=== PATIENT | female | born 1985 | race Caucasian/White ===

== ENCOUNTER 2023-09-17 08:19 | Outpatient (OUT) | payer BC, SELFPAY ==
[2023-09-17 09:04] LABS: Chol HDL Ratio 2.5; Cholesterol 127 mg/dL (<=200); Glucose 82 mg/dL (74-106); HDL Cholesterol 50 mg/dL (40-60); LDL Cholesterol Calculated 67.6 mg/dL; Triglycerides 47 mg/dL (<=150); VLDL CHOLESTEROL 9.4 mg/dL
[2023-09-17 09:30] LABS: Estimated Average Glucose 117 mg/dL; Glycohemoglobin A1C 5.7 % (4.5-6.2)
== END 2023-09-17 08:20 | disposition home or self-care (01) ==
LOC: LAB 08:25
PROVIDERS: PCP Internal Medicine; Visit Provider Internal Medicine
DX: Z00.00 Encounter for general adult medical examination without abnormal findings (principal)
CPT/HCPCS: 36415; 80061; 82947; 83036

== ENCOUNTER 2023-12-17 07:42 | Observation (INO) | payer BC, SELFPAY ==
[2023-12-17] VITALS (17 sets, daily range): BP systolic 110–140; BP diastolic 65–93; PULSE 54–108; TEMP 36.6–36.8; O2SAT 95–100; BMI 30.2; BMI 29.8
--- NOTE | 2023-12-17 07:51 | CT_ITS ---
The [address] [address] Patient Name: SOLANGE MURPHY MRN: [id number] date: 1985 Sex: F Assigned Patient Location: ER Current Patient Location: ER Accession/Order Number: [id number] Exam Date: 12/17/2023 07:59 Report Date: 12/17/2023 08:16 At the request of: SOFIA FAY Procedure: CT stroke head/brain wo con EXAMINATION: CT stroke head/brain wo con HISTORY: CVA, ARM WEAK SLURRED SPEECH COMPARISON: No relevant comparison available. TECHNIQUE: Axial CT images were obtained without IV contrast. Dose reduction techniques were achieved by using automated exposure control and/or adjustment of mA and/or kV according to patient size and/or use of iterative reconstruction technique. FINDINGS: BRAIN: No edema, hemorrhage, mass, acute infarction, or inappropriate atrophy. CSF SPACES: No hydrocephalus, subarachnoid hemorrhage, or mass. Appropriate for age. SKULL: No fracture, mass, or other significant visible lesion. SINUSES: No significant mucosal thickening or fluid on the limited views. ORBITS: No appreciable abnormality on the limited views. OTHER: Findings discussed with emergency room at 8:[address]/CT stroke head/brain wo con IMPRESSION: No acute intracranial abnormality Electronically authenticated by: IRINA SAGE Date: 12/17/2023 08:16
--- NOTE | 2023-12-17 07:51 | XR_ITS ---
The [address] [address] Patient Name: SOLANGE MURPHY MRN: [id number] date: 1985 Sex: F Assigned Patient Location: ER Current Patient Location: ER Accession/Order Number: [id number] Exam Date: 12/17/2023 07:59 Report Date: 12/17/2023 08:11 At the request of: SOFIA FAY Procedure: XR chest 1V EXAMINATION: XR chest 1V HISTORY: CVA COMPARISON: No relevant comparison available. TECHNIQUE: Portable FINDINGS: LUNGS: No significant pulmonary parenchymal abnormalities. VASCULATURE: No increased pulmonary vasculature. PLEURA: No pneumothorax, effusion, or pleural thickening. CARDIAC: No cardiomegaly or cardiac silhouette abnormality. MEDIASTINUM: No visible mass or adenopathy. BONES: No fracture or visible bone lesion. OTHER: Negative. XR/XR chest 1V IMPRESSION: No acute cardiopulmonary process Electronically authenticated by: IRINA SAGE Date: 12/17/2023 08:11
--- NOTE | 2023-12-17 07:51 | ECG_ITS ---
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
--- NOTE | 2023-12-17 07:52 | PC.NURSE ---
blood sugar 95
[2023-12-17 07:53] LABS: Glucometer 95 mg/dL (74-106)
--- OUTSIDE RECORDS SUMMARY | 2023-12-17 07:55 | XMS_ITS | CCD ---
Author Organization [facility] Care Team Providers Care Scale Balancer Name Role Phone Bentley Amin Unavailable Unavailable Bentley Aimn Unavailable Unavailable Ball, Edward Unavailable Unavailable Ball Edward KULKARNI Primary Care Provider FLORO, DIANNE Admitting Unavailable FLORO, DIANNE Attending Unavailable BALL, EDWARD E Primary Care Unavailable FLORO, DIANNE Admitting Unavailable FLORO, DIANNE Attending Unavailable BALL, EDWARD E Primary Care Unavailable FLORO, DIANNE Admitting Unavailable FLORO, DIANNE Attending Unavailable BALL, EDWARD E Primary Care Unavailable BRYANNA BARTH Admitting Unavailable BALL, EDWARD E Primary Care Unavailable FLORO, DIANNE Attending Unavailable SILVER DECKER Consulting Unavailable FLORO, DIANNE Admitting Unavailable FLORO, DIANNE Attending Unavailable BALL, EDWARD E Primary Care Unavailable FLORO, DIANNE Admitting Unavailable FLORO, DIANNE Attending Unavailable BALL, EDWARD E Primary Care Unavailable FLORO, DIANNE Admitting Unavailable FLORO, DIANNE Attending Unavailable BALL, EDWARD E Primary Care Unavailable Margie Fish Unavailable BERTO ZIMMERMAN Admitting Unavailable BERTO ZIMMERMAN Attending Unavailable BALL, DR BALLARD Primary Care Unavailable BERTO ZIMMERMAN Consulting Unavailable BALL, DR BALLARD Admitting Unavailable BALL, DR BALLARD Attending Unavailable BALL, DR BALLARD Primary Care Unavailable BALL, DR BALLARD Consulting Unavailable Camilo, Edward Unavailable Allergies Allergy Classification Reported Allergen(s) Allergy Type Date of Onset Reaction(s) Facility (6 sources) Penicillins Propensity to adverse reactions to drug 04-19-[address] [facility] [employer] [facility] (8 sources) Penicillin G Drug Allergy [facility] [employer] Other (3 sources) Penicillin Drug Allergy 03-16-20 14 Unknown [employer] Other (4 sources) Substance with penicillin structure and antibacterial mechanism of action (substance) Drug allergy 01-14-20 18 Unknown [employer] Other (3 sources) patient allergy list reviewed by nurse or physicia Propensity to adverse reactions 02-27-20 17 Comment:Done [employer] Other (3 sources) Allergies Reconciled Propensity to adverse reactions Unknown [employer] Other Medications Current Medications Medication Drug Class(es) Dates Sig (Normalized) Sig (Original) acetaminophen 325 mg oral tablet (1 source) Start: 10-12-2021 acetaminophen (TYLENOL) tablet 650 mg acetaminophen 325 mg / oxyCODONE hydrochloride 5 mg oral tablet (2 sources) Opioid Agonist Start: 10-14-2021 End: 10-17-2021 take 1 tablet by mouth every eight hours as needed for pain oxyCODONE-acetamino phen (PERCOCET) 5-325 MG per tablet Indications: Born by section Take 1 tablet by mouth every 8 hours as needed for Pain for up to 3 days. 10 tablet 0 10/14/2021 10/17/2021 Active Start: 10-12-2021 oxyCODONE-acet aminophen (PERCOCET) 5-325 MG per tablet 1 tablet aspirin 81 mg chewable tablet (6 sources) Platelet Aggregation Inhibitor, Nonsteroidal Anti-inflammatory Drug Start: 06-15-2021 End: 10-14-2021 ASPIRIN LOW DOSE 81 MG chewable tablet azithromycin 250 mg oral tablet (3 sources) Macrolide Antimicrobial Start: 08-29-2022 Azithromycin 250 MG as directed Orally daily for 5 days Aug, Active buPROPion hydrochloride 100 mg oral tablet (10 sources) Aminoketone Start: 04-09-2023 take 1 tablet by mouth every twelve hours buPROPion HCl 100 MG 1 tablet Orally Twice a day Instruct patient to take bid for first 3 days Apr, Active take 1 tablet by cara th every twenty-four hours buPROPion HCl ER (SR) 150 MG 1 tablet in the morning Orally Once a day Active calcium chloride 0.0014 meq/ml / potassium chloride 0.004 meq/ml / sodium chloride 0.103 meq/ml / sodium lactate 0.028 meq/ml injectable solution (2 sources) Start: 10-12-2021 End: 10-12-2021 lactated ringers infusion 1 ml carboprost 0.25 mg/ml injection (1 source) Prostaglandin Analog Start: 10-12-2021 carboprost (HEMABATE) injection 250 mcg cholecalciferol 0.025 mg oral tablet (6 sources) Vitamin D Start: 06-15-2021 Cholecalciferol (VITAMIN D3) 25 MCG TABS 1 ml diphenhydrAMINE hydrochloride 50 mg/ml cartridge (1 source) Histamine-1 Receptor Antagonist Start: 10-12-2021 diphenhydrAMINE (BENADRYL) injection 25 mg docusate sodium 100 mg oral capsule (2 sources) Start: 10-14-2021 take 1 capsule by mouth twice daily docusate sodium (COLACE) 100 MG capsule Take 1 capsule by mouth 2 times daily 60 capsule 2 10/14/2021 Active Start: 10-12-2021 docusate sodiu m (COLACE) capsule 100 mg docusate sodium 50 mg / sennosides, skilled nursing 8.6 mg oral tablet (1 source) Start: 10-12-2021 sennosides-docusate sodium (SENOKOT-S) 8.6-50 MG tablet 1 tablet 0.6 ml enoxaparin sodium 100 mg/ml prefilled syringe (1 source) Low Molecular Weight Heparin Start: 10-13-2021 enoxaparin (LOVENOX) injection 60 mg escitalopram 20 mg oral tablet (12 sources) Serotonin Reuptake Inhibitor take 1 tablet by mouth every twenty-fou r hours Escitalopram Oxalate 20 MG 1 tablet Orally Once a day Active glucagon (rdna) 1 mg injection (1 source) Antihypoglycemic Agent Start: 10-12-2021 glucagon (rDNA) injection 1 mg 150 ml glucose 50 mg/ml injection (3 sources) Start: 10-12-2021 dextrose 5 % solution Start: 10-12-2021 glucose (GLUTO SE) 40 % oral gel 15 g Start: 10-12-2021 dextrose 50 % IV solution hydrOXYzine hydrochloride 25 mg oral tablet (4 sources) Antihistamine Start: 04-09-2023 take 1-2 tablets by mouth once at bedtime as needed for sleep hydrOXYzine HCl 25 MG 1-2 tablets Orally q HS as needed for sleep 03 Oct, 2023 Active ibuprofen 800 mg oral tablet (2 sources) Nonsteroidal Anti-inflammatory Drug Start: 10-14-2021 take 1 tablet by mouth every eight hours ibuprofen (ADVIL;MOTRIN) 800 MG tablet Take 1 tablet by mouth every 8 hours 120 tablet 3 10/14/2021 Active Start: 10-13-2021 ibuprofen (ADV IL;MOTRIN) tablet 800 mg 3 ml insulin glargine 100 unt/ml pen injector (2 sources) Insulin Analog End: 10-14-2021 insulin glargine (LANTUS SOLOSTAR) 100 UNIT/ML injection pen Inject 12 Units into the skin every morning (before breakfast) 0 10/14/2021 Discontinued (Stop Taking at Discharge) End: 10-14-2021 Insulin Glargine (LANTUS AILYN OSTAR SC) Inject 22 Units into the skin nightly 0 10/14/2021 Discontinued (Stop Taking at Discharge) insulin lispro 100 unt/ml injectable solution (3 sources) Insulin Analog Start: 10-12-2021 insulin lispro (HUMALOG) injection vial 0-3 Units End: 10-14-2021 insulin lispro (HUMALOG) 100 UNIT/ML injection vial Inject 5 Units into the skin Daily with supper 0 10/14/2021 Discontinued (Stop Taking at Discharge) labetalol hydrochloride 100 mg oral tablet (1 source) beta-Adrenergic Danial Start: 10-12-2021 End: 10-15-2021 labetalol (NORMODYNE) tablet 200 mg lanolin 1000 mg/ml topical cream (2 sources) Start: 10-14-2021 lansinoh lanol in CREA ointment Apply 1 applicator topically every hour as needed for Dry Skin (nipple discomfort) 1 each 3 10/14/2021 Active Start: 10-12-2021 lansinoh lanol in ointment levonorgestrel 0.915468 mg/hr intrauterine system (7 sources) Progestin, Progestin-containing Intrauterine Device 1 ml methylergonovine maleate 0.2 mg/ml injection (1 source) Ergot Derivative Start: 10-13-19 methylergonovine (METHERGINE) injection 200 mcg metroNIDAZOLE 250 mg oral tablet (1 source) Nitroimidazole Antimicrobial Start: 10-13-19 End: 10-15-19 metroNIDAZOLE (FLAGYL) tablet 500 mg miSOPROStol 0.1 mg oral tablet (1 source) Prostaglandin E1 Analog Start: 10-13-19 miSOPROStol (CYTOTEC) tablet 800 mcg 1 ml nalbuphine hydrochloride 10 mg/ml injection (1 source) Opioid Agonist/Antagonist Start: 10-13-19 nalbuphine (NUBAIN) injection 10 mg 1 ml naloxone hydrochloride 0.4 mg/ml injection (1 source) Opioid Antagonist Start: 10-13-19 naloxone (NARCAN) injection 0.4 mg 2 ml ondansetron 2 mg/ml injection (1 source) Serotonin-3 Receptor Antagonist Start: 10-13-19 ondansetron (ZOFRAN) injection 4 mg oxytocin (PITOCIN) 30 units in 500 mL infusion (1 source) Start: 10-13-19 End: 10-15-19 oxytocin (PITOCIN) 30 units in 500 mL infusion Vit-Fe Fumarate-FA ( VITAMINS PO) (6 sources) Vit-Fe Fumarate-FA ( VITAMINS PO) Take by mouth 0 Active vitamin 27-1 MG tablet 1 tablet (1 source) Start: 10-13-19 vitamin 27-1 MG tablet 1 tablet simethicone 80 mg chewable tablet (1 source) Start: 10-13-19 simethicone (MYLICON) chewable tablet 80 mg 5 ml sodium chloride 9 mg/ml injection (4 sources) Start: 10-13-19 sodium chloride flush 0.9 % injection 10 mL Start: 10-12-2021 0.9 % sodium c hloride infusion Completed/Discontinued Medications Medication Drug Class(es) Dates Sig (Normalized) Sig (Original) citric acid 66.8 mg/ml / sodium citrate 100 mg/ml oral solution (1 source) Calculi Dissolution Agent, Anti-coagulant Start: 10-12-2021 End: 10-12-2021 citric acid-sodium citrate (BICITRA) solution 30 mL Start: 10-12-2021 End: 10-12-2021 citric acid-sodium citrate ( BICITRA) solution 30 mL 50 ml clindamycin 18 mg/ml injection (1 source) Lincosamide Antibacterial Start: 10-12-2021 End: 10-12-2021 clindamycin (CLEOCIN) 900 mg in dextrose 5 % 50 mL IVPB famotidine (PEPCID) 20 mg in sodium chloride (PF) 10 mL injection (1 source) Start: 10-12-2021 End: 10-12-2021 famotidine (PEPCID) 20 mg in sodium chloride (PF) 10 mL injection 1 ml ketorolac tromethamine 30 mg/ml cartridge (1 source) Nonsteroidal Anti-inflammatory Drug, Cyclooxygenase Inhibitor Start: 10-12-2021 End: 10-13-2021 ketorolac (TORADOL) injection 30 mg 500 ml magnesium sulfate 40 mg/ml injection (3 sources) Start: 10-12-2021 End: 10-12-2021 magnesium sulfate 4000 mg in 100 mL IVPB premix Start: 10-12-2021 End: 10-13-2021 magnesium sulfate (41854 mg/ 500mL infusion) 2 ml metoclopramide 5 mg/ml prefilled syringe (1 source) Dopamine-2 Receptor Antagonist Start: 10-12-2021 End: 10-12-2021 metoclopramide (REGLAN) injection 10 mg Start: 10-12-2021 End: 10-12-2021 metoclopramide (REGLAN) inje ction 10 mg NIFEdipine 10 mg oral capsule (1 source) Dihydropyridine Calcium Channel Danial Start: 10-12-2021 End: 10-12-2021 NIFEdipine (PROCARDIA) capsule 10 mg oxytocin (PITOCIN) 30 units in 500 mL infusion Override Pull (1 source) Start: 10-12-2021 End: 10-12-2021 oxytocin (PITOCIN) 30 units in 500 mL infusion Override Pull Problems Active Problems Problem Classification Problem Date Documented Da te Episodic/Chronic Abdominal pain (9 sources) Abdominal pain; Translations: [Unspecified abdominal pain] Onset: 10-12-2021 Episodic Acute bronchitis (7 sources) Acute bronchitis; Translations: [Acute bronchitis due to other specified organisms] Episodic Anxiety disorders (7 sources) Generalized anxiety disorder; Translations: [Generalized anxiety disorder] Chronic Diabetes mellitus with complications (7 sources) Type 2 diabetes mellitus; Translations: [Type 2 diabetes mellitus with hyperglycemia] Chronic Diabetes mellitus without complication (8 sources) Hyperglycemia, unspecified; Translations: [Hyperglycemia] Onset: 08-21-2022 Episodic Diabetes or abnormal glucose tolerance complicating ; childbirth; or the puerperium (4 sources) Gestational diabetes mellitus; Translations: [Gestational diabetes mellitus in , diet controlled] Episodic Hypertension complicating ; childbirth and the puerperium (4 sources) Hypertension complicating ; Translations: [Unspecified maternal hypertension, first trimester] Onset: 10-12-2021 Chronic Liveborn (1 source) Born by section; Translations: [Single liveborn infant, delivered by ] Episodic Malaise and fatigue (7 sources) Malaise; Translations: [Other malaise] Episodic Miscellaneous mental health disorders (12 sources) Mental disorder; Translations: [Mental disorder, not otherwise specified] Chronic Mood disorders (10 sources) Mild recurrent major depression; 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, recurrent, 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 Other female genital disorders (7 sources) Postcoital bleeding; Translations: [Postcoital and contact bleeding] Chronic Other gastrointestinal disorders (7 sources) Diarrhea; Translations: [Diarrhea, unspecified] Episodic Other nutritional; endocrine; and metabolic disorders (7 sources) Morbid obesity; Translations: [Morbid (severe) obesity due to excess calories] Chronic Other upper respiratory infections (10 sources) Acute upper respiratory infection, unspecified; Translations: [Acute pharyngitis, unspecified] Onset: 06-14-2021 Resolved: 06-14-2021 Episodic Residual codes; unclassified (4 sources) Tobacco use; Translations: [TOBACCO USE] Onset: 08-17-2022 Episodic Unclassified (5 sources) No additional problems on file Past or Other Problems Problem Classification Problem Date Documented Da te Episodic/Chronic Immunizations and screening for infectious disease (1 source) Contact with and (suspected) exposure to other viral communicable diseases Onset: 06-14-2021 Resolved: 06-14-2021 Episodic Results Test Name Value Interpretation Reference Range Facility NICOTINE METABOLITESon 08-27 Cotinine <1.0 Normal [facility] Comment on above: Result Comment: This test was developed and its performance characteristics determined by [employer]. It has not been cleared or approved by the Food and Drug Administration. Cotinine levels greater than 20.0 are consistent with the use of tobacco or tobacco cessation products. Performed By: #### N ICTBLD #### [facility] [address] [place] [address] Dr. Malcolm Gil Nicotine <1.0 Normal [facility] Comment on above: Result Comment: This test was developed and its performance characteristics determined by [employer]. It has not been cleared or approved by the Food and Drug Administration. Nicotine levels greater than 2.0 are consistent with the use of tobacco or tobacco cessation products. Performed By: #### N ICTBLD #### [facility] [address] [place], [place] [address] Dr. Malcolm Gil GLYCOHEMOGLOBIN A1Con 2022 ADA RECOMMENDATION SEE BELOW Normal [facility] Comment on above: Result Comment: ADA RECOMMENDED LIMIT 4.0 - 6.0 ADA THERAPEUTIC TARGET < 7.0 ACTION SUGGESTED > 7.0 Performed By: #### A 1C #### [facility] [address] [place] [address] [address] Malcolm Gil Glucose [Mass/Vol] 163 mg/dL Normal [facility] Comment on above: Performed By: #### A 1C #### [facility] [address] [address] [address] Malcolm Gil HbA1c (Bld) [Mass fraction] 7.3 % Critically high 4.5-6.2 [facility] Comment on above: Performed By: #### A 1C #### [facility] [address] [address] [address] Malcolm Gil Glucose, Whole Bloodon 10-14 Glucose [Mass/Vol] 85 mg/dL 74 - 100 mg/dL [facility] Glucose, Whole Bloodon 10-13 Glucose [Mass/Vol] 161 mg/dL High 74 - 100 mg/dL [facility] Interpretation and review of laboratory results Abnormal [facility] Glucose [Mass/Vol] 168 mg/dL High 74 - 100 mg/dL [facility] Interpretation and review of laboratory results Abnormal [facility] Glucose [Mass/Vol] 136 mg/dL High 74 - 100 mg/dL [facility] Interpretation and review of laboratory results Abnormal [facility] Glucose [Mass/Vol] 137 mg/dL High 74 - 100 mg/dL [facility] Interpretation and review of laboratory results Abnormal [facility] Hemoglobinon 10-13-2021 Hemoglobin (Bld) [Mass/Vol] 10.1 g/dL Low 11.9-15.1 [facility] Comment on above: Performed By: #### U RTPRT #### [facility] [address] [place] [address] Shear Grinder Operator: Morro Hale MD Hemoglobin.gastroin testinal spec 1 Ql (Stl) 10.1 g/dL Low 11.9 - 15.1 g/dL [facility] Interpretation and review of laboratory results Abnormal [facility] Hemoglobin A1Con 10-13-2021 Glucose [Mass/Vol] 143 mg/dL Normal [facility] Comment on above: Result Comment: The ADA and AACC recommend providing the estimated average glucose result to permit better patient understanding of their HBA1c result. Performed By: #### U RTPRT #### [facility] [address] [place], [place] [id number] [employer] Gr[employer] Operator: Morro Hale MD HbA1c (Bld) [Mass fraction] 6.6 % High 4.0-6.0 [facility] Comment on above: Performed By: #### U RTPRT #### [facility] [address] [place] [address] Shear Grinder Operator: Morro Hale MD Hemoglobin A1con 10-13-2021 Glucose [Mass/Vol] 143 mg/dL [facility] Comment on above: The ADA and AACC rec ommend providing the estimated average glucose result to permit better patient understanding of their HBA1c result. HbA1c (Bld) [Mass fraction] 6.6 % High 4.0 - 6.0 % [facility] Interpretation and review of laboratory results Abnormal [facility] Magnesiumon 10-13-2021 Magnesium [Mass/Vol] 4.7 mg/dL Critically high 1.6-2.6 [facility] Comment on above: Performed By: #### U RTPRT #### [facility] [address] [place] [address] Shear Grinder Operator: Morro Hale MD Interpretation and review of laboratory results Abnormal [facility] Magnesium [Mass/Vol] 4.7 mg/dL Critically high 1.6 - 2.6 mg/dL [facility] Magnesium [Mass/Vol] 5.3 mg/dL Critically high 1.6-2.6 [facility] Comment on above: Performed By: #### M G #### [facility] [address] [place] [address] Shear Grinder Operator: Morro Hale MD Interpretation and review of laboratory results Abnormal [facility] Magnesium [Mass/Vol] 5.3 mg/dL Critically high 1.6 - 2.6 mg/dL [facility] Magnesium [Mass/Vol] 4.1 mg/dL Critically high 1.6-2.6 [facility] Comment on above: Performed By: #### M G #### [facility] [address] [place] [address] [employer]ar Grinder Operator: Morro Hale MD APTTon 10-12-2021 aPTT Coag (Bld) [Time] 23.9 s Low 26.8-34.8 [facility] Comment on above: Result Comment: IV Heparin Therapy Range: 62.0-94.0 Performed By: #### U RTPRT #### [facility] [address] [place] [address] Shear Grinder Operator: Morro Hale MD aPTT Coag (Bld) [Time] 23.9 s Low [facility] Comment on above: IV Heparin Therapy Range: 62.0-94.0 Interpretation and review of laboratory results Abnormal [facility] CBC with Auto Differentialon 10-12-2021 Absolute Eos # 0.11 [facility] th Absolute Immature Granulocyte 0.07 [facility] Absolute Lymph # 2.20 [facility] alth Absolute [place] # 0.53 [facility] lth Basophils (Bld) [#/Vol] 0.04 10*3/uL [facility] Basophils/100 WBC (Bld) 0 % 0 - 2 % [facility] Eosinophils/100 WBC (Bld) 1 % 1 - 4 % [facility] Hematocrit (Bld) [Volume fraction] 34.6 % Low 36.3 - 47.1 % [facility] Hemoglobin.gastroin testinal spec 1 Ql (Stl) 11.2 g/dL Low 11.9 - 15.1 g/dL [facility] Immature granulocytes/100 WBC (Bld) 1 % High 0 [facility] Interpretation and review of laboratory results Abnormal [facility] Lymphocytes/100 WBC (Bld) 23 % Low 24 - 43 % [facility] MCH (RBC) [Entitic mass] 27.1 pg 25.2 - 33.5 pg [facility] MCHC (RBC) [Mass/Vol] 32.4 g/dL 28.4 - 34.8 g/dL [facility] MCV (RBC) [Entitic vol] 83.6 fL 82.6 - 102.9 fL [facility] Monocytes/100 WBC (Bld) 6 % 3 - 12 % [facility] NRBC Automated 0.0 0.0 per 100 WBC [facility] Platelet distribution width (Bld) [Ratio] 14.6 % High 11.8 - 14.4 % [facility] Platelet mean volume (Bld) [Entitic vol] 10.6 fL 8.1 - 13.5 fL [facility] Platelets (Bld) [#/Vol] 224 10*3/uL [facility] RBC (Bld) [#/Vol] 4.14 10*6/uL 3.95 - 5.11 m/uL [facility] Segmented neutrophils/100 WBC (Bld) 69 % High 36 - 65 % [facility] Segs [facility]) [#/Vol] 9.6 10*3/uL [facility] CBC with Diffon 10-12-2021 Abs. Basophil 0.04 k/uL Normal 0.00-0.20 [facility] Comment on above: Performed By: #### U RTPRT #### [facility] [address] [place] [address] [employer]ar Grinder Operator: Morro Hale MD Abs.Imm.Granulocyte 0.07 k/uL Normal 0.00-0.30 [facility] Comment on above: Performed By: #### U RTPRT #### [facility] [address] [place] [address] Shear Grinder Operator: Morro Hale MD Abs.Neutrophil (Seg) 6.68 k/uL Normal 1.50-8.10 [facility] Comment on above: Performed By: #### U RTPRT #### [address] [place], [facility] [employer] Grinder Operator: Morro Hale MD Basophils/100 WBC (Bld) 0 % Normal 0-2 [facility] Comment on above: Performed By: #### U RTPRT #### [address] [place], [place] [address] Shear Grinder Operator: Morro Hale MD Eosinophils (Bld) [#/Vol] 0.11 10*3/uL Normal 0.00-0.44 [facility] Comment on above: Performed By: #### U RTPRT #### [address] [place] [id number] [employer] Grinder Operator: Morro Hale MD Eosinophils/100 WBC (Bld) 1 % Normal 1-4 [facility] Comment on above: Performed By: #### U RTPRT #### [address] [place] [id number] [employer]ar Grinder Operator: Morro Hale MD Erythrocyte distribution width (RBC) [Ratio] 14.6 % High 11.8-14.4 [facility] Comment on above: Performed By: #### U RTPRT #### [address] [place], [facility] [employer] Grinder Operator: Morro Hale MD Hematocrit (Bld) [Volume fraction] 34.6 % Low 36.3-47.1 [facility] Comment on above: Performed By: #### U RTPRT #### [address] [place] [id number] [employer] Grinder Operator: Morro Hale MD Hemoglobin (Bld) [Mass/Vol] 11.2 g/dL Low 11.9-15.1 [facility] Comment on above: Performed By: #### U RTPRT #### [facility] [address] [place], [place] [id number] Shear Grinder Operator: Morro Hale MD Immature granulocytes/100 WBC (Bld) 1 % High 0 [facility] Comment on above: Performed By: #### U RTPRT #### [facility] [address] [place], [facility]83 [employer] Grinder Operator: Morro Hale MD Lymphocytes (Bld) [#/Vol] 2.20 10*3/uL Normal 1.10-3.70 [facility] Comment on above: Performed By: #### U RTPRT #### [facility] [address] [place], [facility]83 Shear Grinder Operator: Morro Hale MD Lymphocytes/100 WBC (Bld) 23 % Low 24-43 [facility] Comment on above: Performed By: #### U RTPRT #### [address] [place], [place] [id number] [employer]ar Grinder Operator: Morro Hale MD MCH (RBC) [Entitic mass] 27.1 pg Normal 25.2-33.5 [facility] Comment on above: Performed By: #### U RTPRT #### [address] [place] [address] Shear Grinder Operator: Morro Hale MD MCHC (RBC) [Mass/Vol] 32.4 g/dL Normal 28.4-34.8 [facility] Comment on above: Performed By: #### U RTPRT #### [address] [place] [address] Shear Grinder Operator: Morro Hale MD MCV (RBC) [Entitic vol] 83.6 fL Normal 82.6-102.9 [facility] Comment on above: Performed By: #### U RTPRT #### [address] [place], [place] [id number] [employer]ar Grinder Operator: Morro Hale MD Monocytes (Bld) [#/Vol] 0.53 10*3/uL Normal 0.10-1.20 [facility] Comment on above: Performed By: #### U RTPRT #### [facility] [address] [place], [place] [id number] Shear Grinder Operator: Morro Hale MD Monocytes/100 WBC (Bld) 6 % Normal 3-12 [facility] Comment on above: Performed By: #### U RTPRT #### [facility] [address] [place], [facility]83 Shear Grinder Operator: Morro Hale MD Neutrophil (Seg) 69 % High 36-65 [facility] Comment on above: Performed By: #### U RTPRT #### [facility] [address] [place] [address] Dr. [place], [facility]83 Shear Grinder Operator: Morro Hale MD NRBC Automated 0.0 per 100 WBC Normal 0.0 [facility] Comment on above: Performed By: #### U RTPRT #### [address] [place], [facility]83 Shear Grinder Operator: Morro Hale MD Platelet mean volume (Bld) [Entitic vol] 10.6 fL Normal 8.1-13.5 [facility] Comment on above: Performed By: #### U RTPRT #### [facility] [address] [place] [address] Dr. [place], [facility]83 Shear Grinder Operator: Morro Hale MD Platelets (Bld) [#/Vol] 224 10*3/uL Normal 138-453 [facility] Comment on above: Performed By: #### U RTPRT #### [address] [place] [address] Shear Grinder Operator: Morro Hale MD RBC (Bld) [#/Vol] 4.14 10*6/uL Normal 3.95-5.11 [facility] Comment on above: Performed By: #### U RTPRT #### [facility] [address] [place] [address] Shear Grinder Operator: Morro Hale MD WBC (Bld) [#/Vol] 9.6 10*3/uL Normal 3.5-11.3 [facility] Comment on above: Performed By: #### U RTPRT #### [facility] [address] [place] [address] Shear Grinder Operator: Morro Hale MD Comp Metabolic Profon 2021 (cont.) Normal [facility] Comment on above: Result Comment: Aver age GFR for 30-39 years old: 107 mL/min/1.73sq m Chronic Kidney Disease: <60 mL/min/1.73sq m Kidney failure: <15 mL/min/1.73sq m eGFR calculated using average adult body mass. Additional eGFR calculator available at: http://www.[employer]/multiple_crcl_2012.htm Performed By: #### U RTPRT #### [facility] [address] [place] [address] Shear Grinder Operator: Morro Hale MD Albumin [Mass/Vol] 3.3 g/dL Low 3.5-5.2 [facility] Comment on above: Performed By: #### U RTPRT #### [facility] [address] [place] [address] Shear Grinder Operator: Morro Hale MD Albumin/Glob Ratio 1.2 Normal 1.0-2.5 [facility] Comment on above: Performed By: #### U RTPRT #### [facility] [address] [place] [address] Shear Grinder Operator: Morro Hale MD Alkaline Phos 112 U/L High 35-104 [facility] Comment on above: Performed By: #### U RTPRT #### [facility] [address] [place], [place] [id number] Shear Grinder Operator: Morro Hale MD ALT [Catalytic activity/Vol] 11 U/L Normal 5-33 [facility] Comment on above: Performed By: #### U RTPRT #### [facility] [address] [place], [place] [id number] Shear Grinder Operator: Morro Hale MD Anion gap [Moles/Vol] 11 mmol/L Normal 9-17 [facility] Comment on above: Performed By: #### U RTPRT #### [facility] [address] [place], [place] [id number] Shear Grinder Operator: Morro Hale MD AST [Catalytic activity/Vol] 14 U/L Normal <32 [facility] Comment on above: Performed By: #### U RTPRT #### [facility] [address] [place], [place] [id number] Shear Grinder Operator: Morro Hale MD Bilirubin [Mass/Vol] 0.27 mg/dL Low 0.3-1.2 [facility] Comment on above: Performed By: #### U RTPRT #### [facility] [address] [place], [place] [id number] Shear Grinder Operator: Morro Hale MD BUN/CRE Ratio 19 Normal 9-20 [facility] Comment on above: Performed By: #### U RTPRT #### [facility] [address] [place], [place] [id number] Shear Grinder Operator: Morro Hale MD Calcium [Mass/Vol] 9.2 mg/dL Normal 8.6-10.4 [facility] Comment on above: Performed By: #### U RTPRT #### [facility] [address] [place], [place] [id number] Shear Grinder Operator: Morro Hale MD Chloride [Moles/Vol] 98 mmol/L Normal 98-107 [facility] Comment on above: Performed By: #### U RTPRT #### [facility] [address] [place], [place] [id number] Shear Grinder Operator: Morro Hale MD CO2 [Moles/Vol] 21 mmol/L Normal 20-31 [facility] Comment on above: Performed By: #### U RTPRT #### [facility] [address] [place], [place] [id number] Shear Grinder Operator: Morro Hale MD Creatinine [Mass/Vol] 0.58 mg/dL Normal 0.50-0.90 [facility] Comment on above: Performed By: #### U RTPRT #### [facility] [address] [place], [place] [address]83 Shear Grinder Operator: Morro Hale MD GFR, Amer >60 Normal >60 [facility] Comment on above: Performed By: #### U RTPRT #### [facility] [address] [place], [place] 0378483 Shear Grinder Operator: Morro Hale MD GFR,non Amer >60 Normal >60 [facility] Comment on above: Performed By: #### U RTPRT #### [facility] [address] [place], [place] [address]83 Shear Grinder Operator: Morro Hale MD Glucose [Mass/Vol] 120 mg/dL High 70-99 [facility] Comment on above: Performed By: #### U RTPRT #### [facility] [address] [place], [place] [address]83 Shear Grinder Operator: Morro Hale MD Potassium [Moles/Vol] 3.8 mmol/L Normal 3.7-5.3 [facility] Comment on above: Performed By: #### U RTPRT #### [facility] [address] [place], [place] [address]83 Shear Grinder Operator: Morro Hale MD Protein [Mass/Vol] 6.1 g/dL Low 6.4-8.3 [facility] Comment on above: Performed By: #### U RTPRT #### [facility] [address] [place] [address] Shear Grinder Operator: Morro Hale MD Sodium [Moles/Vol] 130 mmol/L Low 135-144 [facility] Comment on above: Performed By: #### U RTPRT #### [facility] [address] [place] [address] Shear Grinder Operator: Morro Hale MD Staging: Normal [facility] Comment on above: Result Comment: Stag e 1: Some kidney damage normal GFR Stage 2: Mild kidney damage GFR 60-89 Stage 3: Moderate kidney damage GFR 30-59 Stage 4: Severe kidney damage GFR 15-29 Stage 5: Severe kidney damage GFR <15 ESRD - chronic treatment by dialysis or transplant Performed By: #### U RTPRT #### [facility] [address] [place] [address] Shear Grinder Operator: Morro Hale MD Urea nitrogen [Mass/Vol] 11 mg/dL Normal 6-20 [facility] Comment on above: Performed By: #### U RTPRT #### [facility] [address] [place] [address] Shear Grinder Operator: Morro Hale MD Comprehensive Metabolic Pane [facility] 10-12-2021 Albumin [Mass/Vol] 3.3 g/dL Low 3.5 - 5.2 g/dL [facility] Albumin/Globulin [Mass ratio] 1.2 {ratio} [facility] ALP (Bld) [Catalytic activity/Vol] 112 U/L High 35 - 104 U/L [facility] ALT [Catalytic activity/Vol] 11 U/L 5 - 33 U/L [facility] Anion gap [Moles/Vol] 11 mmol/L 9 - 17 mmol/L [facility] AST [Catalytic activity/Vol] 14 U/L <32 [facility] Bilirubin [Mass/Vol] 0.27 mg/dL Low 0.3 - 1.2 mg/dL [facility] Calcium [Mass/Vol] 9.2 mg/dL 8.6 - 10. 4 mg/dL [facility] Chloride [Moles/Vol] 98 mmol/L 98 - 107 mmol/L [facility] CO2 [Moles/Vol] 21 mmol/L 20 - 31 mmol/L [facility] Creatinine [Mass/Vol] 0.58 mg/dL 0.50 - 0.90 mg/dL [facility] Free PSA/Total PSA [Mass fraction] 6.1 g/dL Low 6.4 - 8.3 g/dL [facility] GFR >60 >60 mL/min [facility] GFR Non- >60 >60 mL/min [facility] Glucose [Mass/Vol] 120 mg/dL High 70 - 99 mg/dL [facility] Interpretation and review of laboratory results Abnormal [facility] Potassium [Moles/Vol] 3.8 mmol/L 3.7 - 5.3 mmol/L [facility] Sodium [Moles/Vol] 130 mmol/L Low 135 - 144 mmol/L [facility] Urea nitrogen (BldV) [Mass/Vol] 11 mg/dL 6 - 20 mg/dL [facility] Urea nitrogen/Creatinine (Bld) [Mass ratio] 19 [facility] Drug Scr, Abuse, Uron 2021 Amphetamine(s),Ur Negative Normal [facility]G [facility] Comment on above: Performed By: #### D AU #### [facility] [address] [place] [address] Shear Grinder Operator: Morro Hale MD Barbiturate(s),Ur Negative Normal NEG [facility] Comment on above: Performed By: #### D AU #### [facility] [address] [place] [address] Shear Grinder Operator: Morro Hale MD Benzodiazepine(s) Negative Normal NEG [facility] Comment on above: Performed By: #### D AU #### [facility] [address] [place] [address] Shear Grinder Operator: Morro Hale MD Buprenorphrine, Ur Negative Normal NEG [facility] Comment on above: Performed By: #### D AU #### [facility] [address] [place], [place] [id number] Shear Grinder Operator: Morro Hale MD Cannabinoid(s),Ur Negative Normal NEG [facility] Comment on above: Performed By: #### D AU #### [facility] [address] [place], [facility]83 Shear Grinder Operator: Morro Hale MD Cocaine Metabolite Negative Normal [facility] Comment on above: Performed By: #### D AU #### [facility] [address] [place] [address] [place] [id number] Shear Grinder Operator: Morro Hale MD Methadone Ql (U) Negative Normal [facility] Comment on above: Performed By: #### D AU #### [facility] [address] [place], [facility]83 Shear Grinder Operator: Morro Hale MD Methamphetamine, Ur Negative Normal [facility] Comment on above: Performed By: #### D AU #### [address] [place] [id number] Shear Grinder Operator: Morro Hale MD Opiate(s), Ur Negative Normal NEG [facility] Comment on above: Performed By: #### D AU #### [facility] [address] [place], [facility]83 Shear Grinder Operator: Morro Hale MD Oxycodone, Urine Negative Normal NEG [facility] Comment on above: Performed By: #### D AU #### [facility] [address] [place] [address] Shear Grinder Operator: Morro Hale MD Phencyclidine, Ur Negative Normal [facility] Comment on above: Performed By: #### D AU #### [facility] [address] [place] [address] [place]. [place], [place] [id number] Shear Grinder Operator: Morro Hale MD Propoxyphene,Urine Negative Normal NEG [facility] Comment on above: Performed By: #### D AU #### [facility] [address] [place], [place] [address]167483 Shear Grinder Operator: Morro Hale MD Tricyclic antidepressants Screen Ql (U) Negative Normal NEG [facility] Comment on above: Result Comment: Drug screen results are to be used for medical purposes only. All positive results are unconfirmed. Testing for employment or legal uses should be sent to a reference laboratory for confirmation. Performed By: #### D AU #### [facility] [address] [place], [place] [id number] Shear Grinder Operator: Morro Hale MD Fibrinogenon 10-12-2021 Fibrinogen 572 mg/dL High 179-518 [facility] Comment on above: Performed By: #### U RTPRT #### [facility] [address] [place], [place] [id number] Shear Grinder Operator: Morro Hale MD Fibrinogen 572 mg/dL High 179 - 518 mg/dL [facility] Interpretation and review of laboratory results Abnormal [facility] Glucose, Whole Bloodon 10-12 Glucose [Mass/Vol] 229 mg/dL High 74 - 100 mg/dL [facility] Interpretation and review of laboratory results Abnormal [facility] Glucose [Mass/Vol] 216 mg/dL High 74 - 100 mg/dL [facility] Interpretation and review of laboratory results Abnormal [facility] Glucose [Mass/Vol] 129 mg/dL High 74 - 100 mg/dL [facility] Interpretation and review of laboratory results Abnormal [facility] Laboratory - Chemistry and C hemistry - challengeon 10-12-2021 GFR/1.73 sq M.predicted MDRD (S/P/Bld) [Vol rate/Area] [facility] Comment on above: Average GFR for 30-3 9 years old: 107 mL/min/1.73sq m Chronic Kidney Disease: <60 mL/min/1.73sq m Kidney failure: <15 mL/min/1.73sq m eGFR calculated using average adult body mass. Additional eGFR calculator available at: http://www.[employer]/multiple_crcl_2012.htm Stage 1: Some kidney damage normal GFR Stage 2: Mild kidney damage GFR 60-89 Stage 3: Moderate kidney damage GFR 30-59 Stage 4: Severe kidney damage GFR 15-29 Stage 5: Severe kidney damage GFR <15 ESRD - chronic treatment by dialysis or transplant Lactate Dehydrogenaseon LDH [Catalytic activity/Vol] 194 U/L Normal 135-214 [facility] Comment on above: Performed By: #### U RTPRT #### [facility] [address] [place] [address] [place] [address] Shear Grinder Operator: Morro Hale MD LD 194 U/L 135 - 214 U/L [facility] Magnesiumon 10-12-2021 Interpretation and review of laboratory results Abnormal [facility] Magnesium [Mass/Vol] 4.1 mg/dL Critically high 1.6 - 2.6 mg/dL [facility] Magnesium [Mass/Vol] 4.0 mg/dL Critically high 1.6-2.6 [facility] Comment on above: Performed By: #### M G #### [address] [place] [address] Shear Grinder Operator: Morro Hale MD Interpretation and review of laboratory results Abnormal [facility] Magnesium [Mass/Vol] 4.0 mg/dL Critically high 1.6 - 2.6 mg/dL [facility] No Panel Informationon 10-12 [facility] OPERATIVE REPORTon OPERATIVE REPORT [address] [address] OPERATIVE REPORT PATIENT NAME: SOLANGE MURPHY : 1985 MED REC NO: [id number] ROOM: 0203 ACCOUNT NO: [id number] ADMIT DATE: 10/12/2021 PROVIDER: Farzad Panda MD DATE OF PROCEDURE: 10/12/2021 ADDENDUM ELECTRONICS PRODUCTION SUPERVISOR: ELINOR Chambers, MD [id number] Doc#: [id number] Normal [facility] OPERATIVE REPORT [address] [address] OPERATIVE REPORT PATIENT NAME: SOLANGE MURPHY : 1985 MED REC NO: [id number] ROOM: 0203 ACCOUNT NO: [id number] ADMIT DATE: 10/12/2021 PROVIDER: Farzad Panda MD DATE OF PROCEDURE: 10/12/2021 PREOPERATIVE DIAGNOSES: at 38 plus weeks, latent phase labor, and preeclampsia. Request for ovarian cancer risk reduction. Of note, the patient also has insulin-dependent gestational diabetes as well as morbid obesity. POSTOPERATIVE DIAGNOSES: at 38 plus weeks, latent phase labor, and preeclampsia. Request for ovarian cancer risk reduction. Of note, the patient also has insulin-dependent gestational diabetes as well as morbid obesity. PROCEDURES PERFORMED: Repeat section, low-transverse uterine segment with bilateral salpingectomy. SURGEON: Frazad Panda M.D. ANESTHESIA: Spinal. ESTIMATED BLOOD LOSS: 600 mL. COMPLICATIONS OF THE PROCEDURE: None. FINDINGS: A male fetus in vertex presentation with clear amniotic fluid. Of note, the patient was scheduled to have her section next week, but presented today with latent phase contractions, elevated blood pressure, right upper quadrant pain, and symptoms that are significant for preeclampsia. For this reason, she did have mag sulfate therapy and was scheduled for an urgent section. Of note, the patient also has insulin-dependent gestational diabetes as well as morbid obesity, but in any event, for these reasons, it was decided to carry out a non-scheduled section. DESCRIPTION OF PROCEDURE: The patient is taken to the operating room. Spinal anesthesia is administered. The patient was prepped, had Banda catheter placed, had pneumatic stockings placed. Abdomen prepped and draped. The patient did have the tissue retention straps placed as well. Scalpel was used to make a transverse incision over the old incision and then this was opened with Bovie to divide and coagulate bleeding in the subcutaneous tissue. Then, the fascia was also divided and then it was mobilized away from the underlying rectus muscles both superiorly and inferiorly. The peritoneal cavity was very carefully entered. There were noted to be adhesions between the uterus and the anterior abdominal wall. These adhesions were very carefully lysed, so that there was good visualization of the lower uterine segment far away from the bladder. Transverse incision was made over the uterus. This was extended in a semilunar fashion with mixer operator hot metal's fingers. head was elevated. Fundal pressure placed. Because of the baby not readily presenting into the incision, the vacuum extractor was used, pumped into the green zone, and then with fundal pressure, this was used. However, it did pop off and we did attempt this three times; however, this did bring down the head low enough that we could affect then delivery with fundal pressure. After head was delivered, body of the baby was readily delivered as well. Cord was clamped and cut. Infant handed off to nursing and proof coins inspector who attended the delivery. Cord blood specimen obtained. Placenta manually extracted from the uterus and the uterus was cleaned of blood clots and membranes. The uterus was brought out of the incision and the incision was closed with #1 chromic in a running interlocking fashion and then a second layer in a running imbricating interlocking fashion. This gave excellent hemostasis along the incision. It was then decided perform the bilateral salpingectomy. The tubes were very carefully removed, especially all of the fimbria. This was done bilaterally. This was done with the harmonic scalpel. Excellent hemostasis noted. Posterior cul-de-sac cleaned of blood clots and fluid. Uterus was carefully replaced back into the abdomen. Both tubal sites were checked and noted to be hemostatic. Then, attention was turned to the anterior cul-de-sac and paracolic gutters, which were well cleaned of blood and clot. Bladder was carefully viewed and noted to be completely intact. Then, the fascia was closed with 0 PDS in a running non-interlocking fashion. Subcutaneous tissue was thoroughly irrigated. A deep layer was closed with 3-0 Vicryl in a running non-interlocking fashion. Then a more superficial layer with this. This was performed by Dianne Dang as well as the skin closure which was done in a subcuticular fashion. All sponge, needle, and instrument counts are noted to be correct. FARZAD PANDA MD [id number] Doc#: [id number] CC: Normal [facility] PTon 10-12-2021 INR Coag (PPP) [Relative time] 1.0 {INR} Normal [facility] Comment on above: Result Comment: Non-therapeutic Range: INR = 0.9-1.2 Therapeutic Range: Moderate Anticoagulant Intensity: INR = 2.0-3.0 High Anticoagulant Intensity: INR = 2.5-3.5 Performed By: #### U RTPRT #### [facility] [address] [place] [address] Shear Grinder Operator: Morro Hale MD PT Coag (PPP) [Time] 13.1 s Normal 11.5-14.2 [facility] Comment on above: Performed By: #### U RTPRT #### [facility] [address] [place] [address] Shear Grinder Operator: Morro Hale MD Protein / Creatinine Ratio, Urineon 10-12-2021 Creatinine, Ur 51.4 mg/dL 28.0 - 217.0 mg/dL [facility] Protein (U) [Mass/Vol] 5 mg/dL [facility] Comment on above: No normal range esta blished. Urine Total Protein Creatinine Ratio 0.[address] [facility] Protein,Tot,[place] Uron 2021 Creatinine [Mass/Vol] 51.4 mg/dL Normal 28.0-217.0 [facility] Comment on above: Performed By: #### U RTPRT #### [facility] [address] [place] [address] Shear Grinder Operator: Morro Hale MD Tot Prot. Conc. 5 mg/dL Normal [facility] Comment on above: Result Comment: No n ormal range established. Performed By: #### U RTPRT #### [facility] [address] [place] [address] Shear Grinder Operator: Morro Hale MD TP/Cre Ratio 0.10 Normal 0.00-0.20 [facility] Comment on above: Performed By: #### U RTPRT #### [facility] [address] [place] [address] Shear Grinder Operator: Morro Hale MD Protime-INRon 10-12-2021 INR Coag (Bld) [Relative time] 1.0 {INR} [facility] Comment on above: Non-therapeutic Range: INR = 0.9-1.2 Therapeutic Range: Moderate Anticoagulant Intensity: INR = 2.0-3.0 High Anticoagulant Intensity: INR = 2.5-3.5 PT Coag (PPP) [Time] 13.[address] [facility] Surgical Pathologyon 022 Surgical Pathology (NOTE) -- Diagnosis -- A. LEFT FALLOPIAN TUBE, SALPINGECTOMY: -NO PATHOLOGIC DIAGNOSIS B. RIGHT FALLOPIAN TUBE, SALPINGECTOMY: -NO PATHOLOGIC DIAGNOSIS C. THIRD TRIMESTER TYPE PLACENTA (675 G) DEMONSTRATING: -TWO-VESSEL HYPER SPIRALED UMBILICAL CORD -UNREMARKABLE PLACENTAL MEMBRANES -THIRD TRIMESTER TYPE PLACENTAL DISC DEMONSTRATING NO SIGNIFICANT HISTOPATHOLOGIC FEATURES Murphy Valle D.O. Electronically Signed Out [facility]10/16/2021 Clinical Information Operative Findings: L TUBE; R TUBE; PLACENTA Source of Specimen A: L TUBE B: R TUBE C: PLACENTA Gross Description A. SOLANGE MURPHY, LEFT TUBE 6.5 x 0.5 x 0.5 cm fimbriated fallopian tube segment. The serosa is dusky purple and smooth. A pinpoint lumen is identified. There is a separate 0.6 cm thin-walled cyst in the container. Entirely 3cs. B. SOLANGE MURPHY, RIGHT TUBE 6.0 x 0.6 x 0.6 cm fimbriated fallopian tube segment. The serosa has dusky purple discoloration and is smooth. A pinpoint lumen is identified. There is a separate 0.3 cm thin-walled cyst in the container and a 0.5 cm piece of blue-armstrong fibromembranous tissue. Cassette summary: 1 fimbriae and separate pieces x 2, 2-3 remainder of fallopian tube. C. SOLANGE MURPHY, UNDESIGNATED Placenta with attached membranes and umbilical cord. UMBILICAL CORD Length: 32.0 cm Diameter: 1.1 cm True knots: No Number of vessels: 2 Spiraling: Hyperspiraled, 9/10 cm Insertion into surface: Paracentral MEMBRANES Color: Mcdonnell-armstrong, transparent Meconium staining: No SURFACE Color: Purple-mcdonnell, with a normal array of surface vessels Subchorionic fibrin: Absent MATERNAL SURFACE Cotyledons: -Fragmented/torn: (Approximately 20%) and completeness cannot be determined with abundant blood clot loosely attached to the floor -Focal lesions: No Placental size: 19.0 x 16.0 x 2.5 cm Shape: Ovoid Weight: 675 grams Number of cassettes: 3cs tm Microscopic Description A, B. Microscopic examination performed. C. Umbilical cord: Unremarkable Membranes: Unremarkable Meconium staining: No Infarcts: No Intervillous thrombi: No Subchorionic fibrin: Not significantly increased Villous maturation: Appropriate Nucleated erythrocytes in villous capillaries: Not increased Other: Few microcalcifications SURGICAL PATHOLOGY CONSULTATION Patient Name: [facility] Rec: [id number] Path Number: [id number] [facility] ANATOMIC PATHOLOGY [address] [place] [address]. [place], [place] [address] Normal [facility] Comment on above: Performed By: #### M G #### [facility] [address] [place] [address] [place] [address] Shear Grinder Operator: Morro Hale MD TYPE AND SCREENon 10-12-2021 ABO/Rh Positive [facility] Arm Band Number [id number] [facility] Expiration Date 10/15/2021,2359 [facility] Type + Screenon 10-12-2021 Type + Screen Sample Expiration 10/15/2021,235 Arm Band Number [id number] ABO/Rh(D) O POSITIVE Antibody Screen NEGATIVE [facility] Comment on above: Performed By: #### T YS #### [facility] [address] [place] [address] Shear Grinder Operator: Morro Hale MD Uric Acidon 10-12-2021 Urate [Mass/Vol] 4.4 mg/dL Normal 2.4-5.7 [facility] Comment on above: Performed By: #### U RTPRT #### [facility] [address] [place] [address] Shear Grinder Operator: Morro Hale MD Urate [Mass/Vol] 4.4 mg/dL 2.4 - 5.7 mg/dL [facility] Urinalysison 10-12-2021 Bilirubin Urine Negative NEGATIVE [facility] Color, UA Yellow Yellow [facility] Glucose, Ur Negative NEGATIVE [facility] Ketones Ql (U) Negative NEGATIVE [facility] Leukocyte esterase Test strip Ql (U) Negative NEGATIVE [facility] Nitrite, Urine Negative NEGATIVE [facility] pH, UA 6.0 [facility] Protein, UA Negative NEGATIVE [facility] Specific [place], UA 1.015 [facility] Turbidity UA Clear Clear [facility] Urine Hgb Negative NEGATIVE [facility] Urobilinogen, Urine Normal Normal [facility] Urinalysis, Routineon 2021 Bilirubin, SemiQt,Ur Negative Normal NEG [facility] Comment on above: Performed By: #### M G #### [facility] [address] [place], [place] [id number] Shear Grinder Operator: Morro Hale MD Blood, Urine Negative Normal NEG [facility] Comment on above: Performed By: #### M G #### [facility] [address] [place] [address] Shear Grinder Operator: Morro Hale MD Clarity (U) Clear Normal CLEAR [facility] Comment on above: Performed By: #### M G #### [facility] [address] [place] [address] Shear Grinder Operator: Morro Hale MD Color (U) Yellow Normal YEL [facility] Comment on above: Performed By: #### M G #### [facility] [address] [place] [address] Shear Grinder Operator: Morro Hale MD Glucose Ql (U) Negative Normal NEG [facility] Comment on above: Performed By: #### M G #### [facility] [address] [place] [address] Dr. [place], [facility]83 Shear Grinder Operator: Morro Hale MD Ketones Ql (U) Negative Normal NEG [facility] in Hospital Comment on above: Performed By: #### M G #### [facility] [address] [place] [address] [place] [id number] Shear Grinder Operator: Morro Hale MD Leukocyte esterase Test strip Ql (U) Negative Normal NEG [facility] Comment on above: Performed By: #### M G #### [facility] [address] [place] [address] [place] [id number] Shear Grinder Operator: Morro Hale MD Nitrite,Ur Negative Normal NEG [facility] Comment on above: Performed By: #### M G #### [facility] [address] [place] [address] Dr. [place], [facility]83 Shear Grinder Operator: Morro Hale MD PH,Ur 6.0 Normal 5.0-9.0 [facility] Comment on above: Performed By: #### M G #### [address] [place] [id number] Shear Grinder Operator: Morro Hale MD Protein Ql (U) Negative Normal NEG [facility] in Hospital Comment on above: Performed By: #### M G #### [facility] [address] [place] [address] [place] [id number] Shear Grinder Operator: Morro Hale MD Spec. [place],Ur 1.015 Normal 1.010-1.02 0 [facility] Comment on above: Performed By: #### M G #### [facility] [address] [place] [address] Dr[place] [id number] Shear Grinder Operator: Morro Hale MD Urobilinogen,Ur Normal Normal NORM [facility] Comment on above: Performed By: #### M G #### [facility] [address] [place] [address] Shear Grinder Operator: Morro Hale MD Urine Drug Screenon 10-13-19 22 Amphetamine Screen, Ur Negative NEGATIVE [facility] Barbiturate Screen, Ur Negative NEGATIVE [facility] Benzodiazepine Screen, Urine Negative NEGATIVE [facility] Buprenorphine Urine Negative NEGATIVE [facility] [employer] Cannabinoid Scrn, Ur Negative NEGATIVE [facility] Cocaine Metabolite, Urine Negative NEGATIVE [facility] Methadone Screen, Urine Negative NEGATIVE [facility] Methamphetamine, Urine Negative NEGATIVE [facility] Opiates, Urine Negative NEGATIVE [facility] th Oxycodone Screen, Ur Negative NEGATIVE [facility] Phencyclidine, Urine Negative NEGATIVE [facility] Propoxyphene, Urine Negative NEGATIVE [employer] Tricyclic Antidepressants, Urine Negative NEGATIVE [facility] Comment on above: Drug screen results are to be used for medical purposes only. All positive results are unconfirmed. Testing for employment or legal uses should be sent to a reference laboratory for confirmation. [employer] GBS, External Resulton 09-26 GBS, External Result Positive [employer] Work Phone: Verified with Jacqueline Manuel RN [employer] Work Phone: [email or web address] Phone: US Biophysical Profileon US Biophysical Profile FINDINGS: Breathing Movements2 Gross Body Movements 2 Tone2 Qualitative amniotic fluid volume2 A single, viable intrauterine is present. Heart rate 128 bpm. Cervix is closed 4.0 cm. Cephalic presentation, posterior fundal placenta, Grade 2. IMPRESSION: Posterior fundal placenta Grade 2 and normal biophysical profile. Report reported and signed by Ruben Howell on 09/26/2021 1028 Normal [facility] Marine Design Engineer US OB Limitedon 09-26-2021 US OB Limited FINDINGS: Comparsion made with prior examination of September 18, 2021. Single viable intrauterine , cephalic presentation, normal cardiac activity (145 bpm) and activity. Posterior fundal Grade 2 placenta. BEN 18.0 cm, prior measurement BEN, 20.0 cm, one week earlier. Closed cervix, 3.8 cm length. IMPRESSION: 1. Single viable intrauterine , cephalic presentation. 2. Closed cervix. 3. BEN 18.0 cm, prior measurement BEN 20.0 cm, one week earlier. 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 Single viable intrauterine , cephalic presentation, posterior Grade 1 placenta. Closed cervix 5.0 cm length. Normal cardiac activity 147 beats per minute. BEN 20.0 cm, prior measurement 17.0 cm. IMPRESSION: 1. Single viable intrauterine , cephalic presentation. 2. BEN 20.0 cm. Report reported and signed by Ruben Howell on 09/19/2021 0823 Normal [facility] Marine Design Engineer CBC with Auto Differentialon 09-16-2021 Absolute Eos # 0.12 [facility] th Absolute Immature Granulocyte 0.10 [employer] Absolute Lymph # 2.44 [employer] [facility] Absolute [place] # 0.62 [employer] [facility] lt Basophils (Bld) [#/Vol] 0.04 10*3/uL [employer] Basophils/100 WBC (Bld) 0 % 0 - 2 % [employer] Eosinophils/100 WBC (Bld) 1 % 1 - 4 % [employer] Hematocrit (Bld) [Volume fraction] 35.0 % Low 36.3 - 47.1 % [employer] Hemoglobin.gastroin testinal spec 1 Ql (Stl) 11.2 g/dL Low 11.9 - 15.1 g/dL [employer] Immature granulocytes/100 WBC (Bld) 1 % High 0 [facility] Interpretation and review of laboratory results Abnormal [employer] Lymphocytes/100 WBC (Bld) 21 % Low 24 - 43 % [employer] MCH (RBC) [Entitic mass] 27.5 pg 25.2 - 33.5 pg [facility] MCHC (RBC) [Mass/Vol] 32.0 g/dL 28.4 - 34.8 g/dL [employer] MCV (RBC) [Entitic vol] 86.0 fL 82.6 - 102.9 fL [employer] Monocytes/100 WBC (Bld) 5 % 3 - 12 % [employer] NRBC Automated 0.0 0.0 per 100 WBC [employer] Platelet distribution width (Bld) [Ratio] 14.2 % 11.8 - 14.4 % [employer] Platelet mean volume (Bld) [Entitic vol] 9.6 fL 8.1 - 13.5 fL [facility] Platelets (Bld) [#/Vol] 210 10*3/uL [facility] RBC (Bld) [#/Vol] 4.07 10*6/uL 3.95 - 5.11 m/uL [facility] Segmented neutrophils/100 WBC (Bld) 72 % High 36 - 65 % [facility] Segs Absolute 8.37 High [facility] W[facility] (Bld) [#/Vol] 11.7 10*3/uL High [facility] CBC with Diffon 09-16-2021 Abs. Basophil 0.04 k/uL Normal 0.00-0.20 [facility] Comment on above: Performed By: #### Elliot Marshall CP, URI, CDP #### [facility] [address] [place], [facility]83 Shear Grinder Operator: Morro Hale MD Abs.Imm.Granulocyte 0.10 k/uL Normal 0.00-0.30 [facility] Comment on above: Performed By: #### Elliot Marshall CP, URI, CDP #### [facility] [address] [place], [place] [address] Shear Grinder Operator: Morro Hale MD Abs.Neutrophil (Seg) 8.37 k/uL High 1.50-8.10 [facility] Comment on above: Performed By: #### Elliot Marshall CP, URI, CDP #### [facility] [address] [place], [place] [address] Shear Grinder Operator: Morro Hale MD Basophils/100 WBC (Bld) 0 % Normal 0-2 [facility] Comment on above: Performed By: #### Elliot Marshall CP, URI, CDP #### [facility] [address] [place], [facility]83 Shear Grinder Operator: Morro Hale MD Eosinophils (Bld) [#/Vol] 0.12 10*3/uL Normal 0.00-0.44 [facility] Comment on above: Performed By: #### L D, CP, URI, CDP #### [facility] [address] [place] [address] Dr[place], [place] [id number] Shear Grinder Operator: Morro Hale MD Eosinophils/100 WBC (Bld) 1 % Normal 1-4 [facility] Comment on above: Performed By: #### L D, CP, URI, CDP #### [address] [place], [place] [address] Shear Grinder Operator: Morro Hale MD Erythrocyte distribution width (RBC) [Ratio] 14.2 % Normal 11.8-14.4 [facility] Comment on above: Performed By: #### L Carla, CP, URI, CDP #### [address] [place], [facility]83 Shear Grinder Operator: Morro Hale MD Hematocrit (Bld) [Volume fraction] 35.0 % Low 36.3-47.1 [facility] Comment on above: Performed By: #### L Carla, YUMIKO, URI, CDP #### [address] [place], [facility]83 Shear Grinder Operator: Morro Hale MD Hemoglobin (Bld) [Mass/Vol] 11.2 g/dL Low 11.9-15.1 [facility] Comment on above: Performed By: #### L Carla, CP, URI, CDP #### [address] [place], [facility]83 Shear Grinder Operator: Morro Hale MD Immature granulocytes/100 WBC (Bld) 1 % High 0 [facility] Comment on above: Performed By: #### L Carla, CP, URI, CDP #### [address] [place], [facility]83 Shear Grinder Operator: Morro Hale MD Lymphocytes (Bld) [#/Vol] 2.44 10*3/uL Normal 1.10-3.70 [facility] Comment on above: Performed By: #### L Carla, YUMIKO, URI, CDP #### [facility] [address] [place], [facility]83 Shear Grinder Operator: Morro Hale MD Lymphocytes/100 WBC (Bld) 21 % Low 24-43 [facility] Comment on above: Performed By: #### L Carla, YUMIKO, URI, CDP #### [facility] [address] [place], [facility]83 Shear Grinder Operator: Morro Hale MD MCH (RBC) [Entitic mass] 27.5 pg Normal 25.2-33.5 [facility] Comment on above: Performed By: #### Elliot Marshall CP, URI, CDP #### [facility] [address] [place], [facility]83 Shear Grinder Operator: Morro Hale MD MCHC (RBC) [Mass/Vol] 32.0 g/dL Normal 28.4-34.8 [facility] Comment on above: Performed By: #### Elliot Marshall, YUMIKO, URI, CDP #### [address] [place], [place] [address] Shear Grinder Operator: Morro Hale MD MCV (RBC) [Entitic vol] 86.0 fL Normal 82.6-102.9 [facility] Comment on above: Performed By: #### L Carla, YUMIKO, URI, CDP #### [address] [place], [place] [address] Shear Grinder Operator: Morro Hale MD Monocytes (Bld) [#/Vol] 0.62 10*3/uL Normal 0.10-1.20 [facility] Comment on above: Performed By: #### L Carla, YUMIKO, URI, CDP #### [facility] [address] [place], [place] [id number] Shear Grinder Operator: Morro Hale MD Monocytes/100 WBC (Bld) 5 % Normal 3-12 [facility] Comment on above: Performed By: #### L Carla, CP, URI, CDP #### [facility] [address] [place], [place] [address] Shear Grinder Operator: Morro Hale MD Neutrophil (Seg) 72 % High 36-65 [facility] Comment on above: Performed By: #### L Carla, CP, URI, CDP #### [facility] [address] [place], [facility]83 Shear Grinder Operator: Morro Hale MD NRBC Automated 0.0 per 100 WBC Normal 0.0 [facility] Comment on above: Performed By: #### L Carla, CP, URI, CDP #### [address] [place], [facility]83 Shear Grinder Operator: Morro Hale MD Platelet mean volume (Bld) [Entitic vol] 9.6 fL Normal 8.1-13.5 [facility] Comment on above: Performed By: #### L Carla, YUMIKO, URI, CDP #### [address] [place], [facility]83 Shear Grinder Operator: Morro Hale MD Platelets (Bld) [#/Vol] 210 10*3/uL Normal 138-453 [facility] Comment on above: Performed By: #### L Carla, YUMIKO, URI, CDP #### [address] [place], [facility]83 Shear Grinder Operator: Morro Hale MD RBC (Bld) [#/Vol] 4.07 10*6/uL Normal 3.95-5.11 [facility] Comment on above: Performed By: #### L Carla, YUMIKO, URI, CDP #### [facility] [address] [place], [place] [phone] Shear Grinder Operator: Morro Hale MD WBC (Bld) [#/Vol] 11.7 10*3/uL High 3.5-11.3 [facility] Comment on above: Performed By: #### L Carla, YUMIKO, URI, CDP #### [facility] [address] [place] [address] Shear Grinder Operator: Morro Hale MD Comp Metabolic Profon 2021 (cont.) Normal [facility] Comment on above: Result Comment: Aver age GFR for 30-39 years old: 107 mL/min/1.73sq m Chronic Kidney Disease: <60 mL/min/1.73sq m Kidney failure: <15 mL/min/1.73sq m eGFR calculated using average adult body mass. Additional eGFR calculator available at: http://www.[employer]/multiple_crcl_2011.htm Performed By: #### L YUMIKO Marshall URI, CDP #### [address] [place] [address] Shear Grinder Operator: Morro Hale MD Albumin [Mass/Vol] 3.4 g/dL Low 3.5-5.2 [facility] Comment on above: Performed By: #### Elliot Marshall CP, URI, CDP #### [facility] [address] [place] [address] Shear Grinder Operator: Morro Hale MD Albumin/Glob Ratio 1.2 Normal 1.0-2.5 [facility] Comment on above: Performed By: #### L YUMIKO Marshall URI, CDP #### [facility] [address] [place] [address] Shear Grinder Operator: Morro Hale MD Alkaline Phos 98 U/L Normal 35-104 [facility] Comment on above: Performed By: #### L YUMIKO Marshall, URI, CDP #### [facility] [address] [place] [address] Shear Grinder Operator: Morro Hale MD ALT [Catalytic activity/Vol] 10 U/L Normal 5-33 [facility] Comment on above: Performed By: #### L D, CP, URI, CDP #### [facility] [address] [place] [address] [place], [place] [id number] Shear Grinder Operator: Morro Hale MD Anion gap [Moles/Vol] 8 mmol/L Low 9-17 [facility] Comment on above: Performed By: #### L D, CP, URI, CDP #### [facility] [address] [place] [address] [place]. [place], [place] [id number] Shear Grinder Operator: Morro Hale MD AST [Catalytic activity/Vol] 13 U/L Normal <32 [facility] Comment on above: Performed By: #### L D, CP, URI, CDP #### [address] [place], [place] [id number] Shear Grinder Operator: Morro Hale MD Bilirubin [Mass/Vol] 0.17 mg/dL Low 0.3-1.2 [facility] Comment on above: Performed By: #### L D, CP, URI, CDP #### [address] [place], [place] [id number] Shear Grinder Operator: Morro Hale MD BUN/CRE Ratio 21 High 9-20 [facility] Comment on above: Performed By: #### L D, CP, URI, CDP #### [address] [place], [place] [phone] Shear Grinder Operator: Morro Hale MD Calcium [Mass/Vol] 9.1 mg/dL Normal 8.6-10.4 [facility] Comment on above: Performed By: #### L D, CP, URI, CDP #### [address] [place] [address] Shear Grinder Operator: Morro Hale MD Chloride [Moles/Vol] 103 mmol/L Normal 98-107 [facility] Comment on above: Performed By: #### L D, CP, URI, CDP #### [facility] [address] [place], [place] [phone] Shear Grinder Operator: Morro Hale MD CO2 [Moles/Vol] 24 mmol/L Normal 20-31 [facility] Comment on above: Performed By: #### L D, CP, URI, CDP #### [facility] [address] [place], [place] [id number] Shear Grinder Operator: Morro Hale MD Creatinine [Mass/Vol] 0.48 mg/dL Low 0.50-0.90 [facility] Comment on above: Performed By: #### L D, CP, URI, CDP #### [facility] [address] [place], [place] [id number] Shear Grinder Operator: Morro Hale MD GFR, Amer >60 Normal >60 [facility] Comment on above: Performed By: #### L D, CP, URI, CDP #### [facility] [address] [place], [place] [phone] Shear Grinder Operator: Morro Hale MD GFR,non Amer >60 Normal >60 [facility] Comment on above: Performed By: #### L D, CP, URI, CDP #### [facility] [address] [place], [place] [phone] Shear Grinder Operator: Morro Hale MD Glucose [Mass/Vol] 162 mg/dL High 70-99 [facility] Comment on above: Performed By: #### L D, CP, URI, CDP #### [facility] [address] [place], [place] [id number] Shear Grinder Operator: Morro Hale MD Potassium [Moles/Vol] 3.9 mmol/L Normal 3.7-5.3 [facility] Comment on above: Performed By: #### L D, CP, URI, CDP #### [facility] [address] [place], [place] [phone] Shear Grinder Operator: Morro Hale MD Protein [Mass/Vol] 6.2 g/dL Low 6.4-8.3 [facility] Comment on above: Performed By: #### L Carla, YUMIKO, URI, CDP #### [facility] [address] [place] [address] Shear Grinder Operator: Morro Hale MD Sodium [Moles/Vol] 135 mmol/L Normal 135-144 [facility] Comment on above: Performed By: #### L Carla, CP, URI, CDP #### [facility] [address] [place] [address] Shear Grinder Operator: Morro Hale MD Staging: Normal [facility] Comment on above: Result Comment: Stag e 1: Some kidney damage normal GFR Stage 2: Mild kidney damage GFR 60-89 Stage 3: Moderate kidney damage GFR 30-59 Stage 4: Severe kidney damage GFR 15-29 Stage 5: Severe kidney damage GFR <15 ESRD - chronic treatment by dialysis or transplant Performed By: #### L Carla, YUMIKO, URI, CDP #### [facility] [address] [place] [address] [place] [address] Shear Grinder Operator: Morro Hale MD Urea nitrogen [Mass/Vol] 10 mg/dL Normal 6-20 [facility] Comment on above: Performed By: #### L Carla, YUMIKO, URI, CDP #### [facility] [address] [place] [address] Shear Grinder Operator: Morro Hale MD Comprehensive Metabolic Pane [facility] 09-16-2021 Albumin [Mass/Vol] 3.4 g/dL Low 3.5 - 5.2 g/dL [facility] Albumin/Globulin [Mass ratio] 1.2 {ratio} [facility] ALP (Bld) [Catalytic activity/Vol] 98 U/L 35 - 104 U/L [facility] ALT [Catalytic activity/Vol] 10 U/L 5 - 33 U/L [facility] Anion gap [Moles/Vol] 8 mmol/L Low 9 - 17 mmol/L [facility] AST [Catalytic activity/Vol] 13 U/L <32 [facility] [employer] Bilirubin [Mass/Vol] 0.17 mg/dL Low 0.3 - 1.2 mg/dL [facility] [employer] Calcium [Mass/Vol] 9.1 mg/dL 8.6 - 10. 4 mg/dL [facility] [employer] Chloride [Moles/Vol] 103 mmol/L 98 - 107 mmol/L [facility] CO2 [Moles/Vol] 24 mmol/L 20 - 31 mmol/L [facility] Creatinine [Mass/Vol] 0.48 mg/dL Low 0.50 - 0.90 mg/dL [facility] Free PSA/Total PSA [Mass fraction] 6.2 g/dL Low 6.4 - 8.3 g/dL [facility] [employer] GFR >60 >60 mL/min [facility] GFR Non- >60 >60 mL/min [facility] [employer] Glucose [Mass/Vol] 162 mg/dL High 70 - 99 mg/dL [facility] Interpretation and review of laboratory results Abnormal [facility] [employer] Potassium [Moles/Vol] 3.9 mmol/L 3.7 - 5.3 mmol/L [facility] [employer] Sodium [Moles/Vol] 135 mmol/L 135 - 144 mmol/L [facility] Urea nitrogen (BldV) [Mass/Vol] 10 mg/dL 6 - 20 mg/dL [facility] Urea nitrogen/Creatinine (Bld) [Mass ratio] 21 High [facility] Laboratory - Chemistry and C hemistry - challengeon 09-16-2021 GFR/1.73 sq M.predicted MDRD (S/P/Bld) [Vol rate/Area] [facility] Comment on above: Average GFR for 30-3 9 years old: 107 mL/min/1.73sq m Chronic Kidney Disease: <60 mL/min/1.73sq m Kidney failure: <15 mL/min/1.73sq m eGFR calculated using average adult body mass. Additional eGFR calculator available at: http://www.[employer]/multiple_crcl_2011.htm Stage 1: Some kidney damage normal GFR Stage 2: Mild kidney damage GFR 60-89 Stage 3: Moderate kidney damage GFR 30-59 Stage 4: Severe kidney damage GFR 15-29 Stage 5: Severe kidney damage GFR <15 ESRD - chronic treatment by dialysis or transplant Lactate Dehydrogenaseon 09-05 LDH [Catalytic activity/Vol] 174 U/L Normal 135-214 [facility] Comment on above: Performed By: #### Elliot Marshall CP, URI, CDP #### [facility] [address] [place] [address] [employer]ar Grinder Operator: Morro Hale MD LD 174 U/L 135 - 214 U/L [facility] No Panel Informationon 09-16 [facility] Protein / Creatinine Ratio, Urineon 09-16-2021 Creatinine, Ur 93.8 mg/dL 28.0 - 217.0 mg/dL [facility] Protein (U) [Mass/Vol] 7 mg/dL [facility] Comment on above: No normal range esta blished. Urine Total Protein Creatinine Ratio 0.[address] [facility] Protein,Tot,[place] 2021 Creatinine [Mass/Vol] 93.8 mg/dL Normal 28.0-217.0 [facility] Comment on above: Performed By: #### U RTPRT #### [facility] [address] [place], [place] [id number] [employer]ar Grinder Operator: Morro Hale MD Tot Prot. Conc. 7 mg/dL Normal [facility] Comment on above: Result Comment: No n ormal range established. Performed By: #### U RTPRT #### [facility] [address] [place], [place] [id number] Shear Grinder Operator: Morro Hale MD TP/Cre Ratio 0.07 Normal 0.00-0.20 [facility] Comment on above: Performed By: #### U RTPRT #### [facility] [address] [place] [address] Shear Grinder Operator: Morro Hale MD Uric Acidon 09-16-2021 Urate [Mass/Vol] 2.8 mg/dL Normal 2.4-5.7 [facility] Comment on above: Performed By: #### Elliot Marshall CP, URI, CDP #### [facility] [address] [place] [address] Shear Grinder Operator: Morro Hale MD Urate [Mass/Vol] 2.8 mg/dL 2.4 - 5.7 mg/dL [employer] US OB Limitedon 09-07-2021 OB Limited FINDINGS: Single viable intrauterine . BEN 17.0 cm. Closed cervix 4.3 cm length. Cephalic presentation. IMPRESSION: 1. Single viable intrauterine , cephalic presentation. 2. BEN 17.0 cm. Report reported and signed by Ruben Howell on 09/07/2021 1019 Normal [facility] Marine Design Engineer COVID Quick Testingon 2020 Result Negative [employer] Other Quick Strepon 06-14-2021 S. pyogenes Org specific cx Ql (Throat) Negative [facility] [employer] Other Quick Strep [facility] [employer] Other [facility] LABon 04-19-2021 [facility] Normal [facility] Comment on above: Order Comment: @[facility] Test Name: INHERITEST CARRIER SCREEN [id number] CPT 54511;[id number];[id number] Result Comment: See report. Scanned copy available in EMR. PERFORMED BY: [place] [id number] PATHOLOGIST RANGE FEEDER FILEMON VARGAS M.D. Performed By: #### M [facility] #### [place] [id number] [facility] ABO, External Resulton 03-22 ABO, External Result o [employer] Work Phone: C. Trachomatis, External Res [facility] 03-22-2021 C. Trachomatis, External Result Negative [employer] Work Phone: HIV, External Resulton 03-22 HIV, External Result Non-Reactive [employer] Work Phone: Hepatitis B, External Result on 03-22-2021 Hep B, External Result Non-Reactive [employer] Work Phone: N. Gonorrhoeae, External Res ulton 03-22-2021 N. Gonorrhoeae, External Result Negative [employer] Phone: No Panel InformationOrdered By: Nerissa Lerma on 03-22-2021 [employer] No Panel Informationon 03-22 Verified with Jacqueline Manuel RN [employer] Phone: [employer] Phone: RPR, External Labon 03-22-20 21 RPR, External Result Non-Reactive [employer] Phone: Rh Factor, External ResultOr dered By: Nerissa Lerma on 03-22-2021 Rh Factor, External Result + [employer] Rubella Titer, External Resu lton 03-22-2021 Rubella Titer, External Result immune [employer] Phone: Coding Summaryon 04-23-2017 Coding Summary CODING DATE: 017 [facility] STATUS: Home PAYOR: [employer] ADMIT DX: REASON FOR VISIT DX: M79.669 Pain in unspecified lower leg FINAL DX: PRINCIPAL: S86.919A Strain of unspecified muscle(s) and tendon(s) at lower leg level, unspecified leg, initial encounter SECONDARY: X50.1XXA Overexertion from prolonged static or awkward postures, initial encounter Y93.F2 Activity, caregiving, lifting PROCEDURES DOCTOR NAME DATE NOTE: The code number assigned matches the documented diagnosis and / or procedure in the patient's chart. However, the narrative phrase printed from the coding software may appear abbreviated, or result in slightly different terminology. Coded By: Janet Mccracken Date Saved: 04/23/2017 01:[address] [facility] ED Clinical Summaryon [address] [facility] ? Urgent [address], [place] [id number] clinical SummaryPERSON INFORMATIONName: STAS BROWERMIRIAN PAREDES Age: 32 Years Sex: FEMALEDOB: [birth year] MRN: Acct#:Visit Reason: Lower leg pain-swelling; LEFT LEG PAIN AND SWELLING Arrival:04/12/17 12:10:00 Discharge: 04/12/17 12:37:00LOS: 000 00:27 Check In: 04/12/17 12:10:00 Checkout: 04/12/17 12:37:00Address:[address] [facility] [id number]: Edward PagePROAZEEM INFORMATIONProvider Role Assigned UnassignedBentley Amin PA-C ED PA 04/12/17 12:23:22VITALS INFORMATIONVital Sign Triage LatestTemperature TympanicTemperature Temporal ArteryPulse Rate 97 bpm 97 bpmO2 Sat 98 % 98 %Respiratory Rate 20 br/min 20 br/minBlood Pressure 120 mmHg/90 mmHg 120 mmHg/90 mmHgMEDICAL INFORMATIONMedications Given:Allergy Information:PHYSICIAN DOCUMENTATIONDISCHARGE INFORMATION:Discharge Disposition: HomeDischarge Location: HomePATIENT EDUCATION INFORMATIONInstructions: Muscle Strain, Riaj-mm-AxjlYenpiq-Up:With: Address: When:Rober Loya [address] [place] [address], [place], [phone] Business (2) Within 3 to 5 days, only if neededWith: Address: When:Edward Page [address] [place] [address] Business (1) Within 3 to 5 daysDIAGNOSIS:Muscle strain of lower legComment: 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 She is ambulatory, but with a slight limp secondary to pain. No fevers, chills or malaise. No chest pains or SOB. No history of PE or DVT, no identifiable risk factors. No skin rashes. No other joint pains or myalgias. No numbness, tingling or weakness. No joint pains or myalgias. There are no other associated symptoms. Walking makes it worse. Rest is helpful. Nothing else makes the symptoms better or worse. Symptoms are described as sudden onset, moderate in nature and persisting.Health StatusAllergies:No active allergies have been recorded..Past Medical/ Family/ Social HistoryMedical history:No active or resolved past medical history items have been selected or recorded..Surgical history:No active procedure history items have been selected or recorded..Family history:No family history items have been selected or recorded..Social history:Social & Psychosocial HabitsNo Data Available.Problem list:No qualifying data available.Physical Examination Vital SignsVital Signs04/12/17 12:15 EDT Temperature Oral 37.1 DegC Peripheral Pulse Rate 97 bpm Respiratory Rate 20 br/min Systolic Blood Pressure 120 mmHg Diastolic Blood Pressure 90 mmHg SpO2 98 % O2 Flow 0 L/min.Ctfzkneersdv94/06/17 12:15 EDT Height/Length Dosing 157.4 cm Weight Dosing 113.4 kg.GENERAL: Awake, alert and oriented to person, place and situation. Well nourished, well developed, non toxic, NAD.CARDIOVASCULAR: Regular rate and rhythm. +S1 +S2. No murmurs or rubs.RESPIRATORY: Clear to auscultation bilaterally without rales, rhonchi or wheeze.EXTREMITIES: No bony TTP, full ROMwithout too much difficulty, no cyanosis, clubbing or edema. There is mid posterior calf tenderness to palpation. Normal calf squeeze test. Achilles in tact. Good muscle tone, full ROM without difficulty. Brisk cap refill distally, pedal pulses 2+ bilaterally.SKIN: Normal inspection, no visualized ecchymosis, abrasion or rash.NEUROLOGIC: Light touch sensation in tact, strength 5/5 in bilateral lower extremities. Normal mentation. No focal neurological deficits appreciated.PSYCHIATRIC: Mood and affect appropriate.Medical Decision MakingTTP mid calf, no bony TTP and she is bearing weight without too much difficulty. Worst pain with flexion at ankle. Achilles in tact. Reassurance at this time. Low yield for x-ray at this time. Rest, ice and elevate. OTC Motrin for pain, Beulah as needed for severe pain. Return with new, or worsening symptoms, or symptoms failing to improve as expected and the patient voiced their understanding. Questions answered. Follow-up with their family doctor as directed, return here sooner as needed. See ortho as needed.Impression and PlanDiagnosisMuscle strain of lower leg (ANM90-QV S86.919A, Discharge, Medical)PlanCondition: Stable.Disposition: Discharged: Time 04/12/17 12:36:00, to home.Prescriptions: Launch prescriptionsPharmacy:Beulah 5 mg-325 mg oral tablet (Prescribe): 1 tab(s), PO, q6hr, for 3 day(s), PRN: for pain, 12 tab(s), 0 Refill(s).Patient was given the following educational materials: Muscle Strain, Rvzo-cu-Flnq, Muscle Strain, Aabb-kc-Khlq.Follow up with: Edward Page Within 3 to 5 days; Rober Loya Within 3 to 5 days, only if needed.Counseled: Patient, Regarding diagnosis, Regarding treatment plan, Regarding prescription, Patient indicated understanding of instructions.Orders: Launch OrdersMiscellaneous Request:Excuse from Work/School (Order): 04/12/17 12:49 EDT, May require sitting intermittently for the next week..[Electronically Signed on: 04/12/2017 12:51 EDT] Bentley Amin PA-C[Verified on: 04/12/2017 12:51 EDT] Bentley Amin PA-C Normal [facility] ED Patient Summaryon [address] [facility] ? Urgent [address] [place] [address] pATIENT DISCHARGE INSTRUCTIONSPatient InformationName: LINDAJOSHSOLANGE Age: 32 YearsDate of : [birth year]MRN: [id number] For Visit: Lower leg pain-swelling; LEFT LEG PAIN AND SWELLINGArrival Time: 04/12/17 12:10:00Phone: Primary Care Physician: Pat Page Physician: Bentley Amin-CComment:Patient EducationWith: Address: When:Rober Loya [address] [place] [address], [address] [place], [phone] Business (2) Within 3 to 5 days, only if neededWith: Address: When:Edward Camilo [address] [place] [address] Business (1) Within 3 to 5 daysMuscle StrainA muscle strain (pulled muscle) happens when a muscle is stretched beyond normal length. It happens when a sudden, violent force stretches your muscle too far. Usually, a few of the fibers in your muscle are torn. Muscle strain is common in athletes. Recovery usually takes 1?2 weeks. Complete healing takes 5?6 weeks. HOME CARE? Follow the HERNANDES method of treatment to help your injury get better. Do this the first 2?3 days after the injury:? Protect. Protect the muscle to keep it from getting injured again.? Rest. Limit your activity and rest the injured body part.? Ice. Put ice in a plastic bag. Place a towel between your skin and the bag. Then, apply the ice and leave it on from 15?20 minutes each hour. After the third day, switch to moist heat packs.? Compression. Use a splint or elastic bandage on the injured area for comfort. Do not put it on too tightly.? Elevate. Keep the injured body part above the level of your heart.? Only take medicine as told by your doctor.? Warm up before doing exercise to prevent future muscle strains.GET HELP IF:? You have more pain or puffiness (swelling) in the injured area.? You feel numbness, tingling, or notice a loss of strength in the injured area.MAKE SURE YOU:? Understand these instructions.? Will watch your condition.? Will get help right away if you are not doing well or get worse.This information is not intended to replace advice given to you by your health care provider. Make sure you discuss any questions you have with your health care provider.Document Released: 04/02/2009 Document Revised: 04/14/2014 Document Reviewed: 01/21/2014L[employer] Interactive Patient Education ?2016 [employer]Medication Information:The exam and treatment you received today [facility] were for an urgent problem and are not intended as complete care. It is important for you to follow up with a doctor, nurse practitioner, or physician?s diver assistant for ongoing care. If your symptoms become worse or you do not improve as expected and you are unable to reach your usual health care provider, you should return to the Emergency Department, we are available 24 hours a day.For those patients who have received Radiology results, the interpretation of your X-ray as given to you by our Emergency Department physician is only a preliminary report. The Radiologist will review your films and if there is a change in the diagnosis you will be notified by phone. Please make sure you have provided a working phone number so we can reach you if necessary.In the event that you had a lab culture while you were a patient in the Emergency Department, you will be notified by phone if there is a need to change your antibiotic. Please make sure you have provided a working phone number so we can reach you if necessary.[facility] Emergency Department has provided you with a complete list of medications post discharge. Please inform your technical sales specialist/provider of your visit and for further instruction on these medications. Any specific questions regarding your chronic medications and dosages should be discussed with your primary care physician(s) and/or pharmacist. New MedicationsPrinted Prescriptionsacetaminophen-h ydrocodone (Beulah 5 mg-325 mg oral tablet) 1 tab(s) Oral Every 6 hours as needed for pain for 3 Days. Refills: 0.Visit InformationVisit Diagnosis:Diagnoses This Visit Lower leg pain-swelling ([id number]) Muscle strain of lower leg (S86.919A)If you received any narcotics, sedation, or any other medication that causes drowsiness for the next 24 hours, unless otherwise directed:? Do not drive a car.? Do not operate machinery such as power tools, lawn mowers, drills, sewing machines, or stoves? Avoid alcoholic beverages and drugs for allergies, nerves, or sleep? Do not make important personal or business decisions or sign any legal documentsReason for Visit:Allergies:Substance Reaction Symptoms Type CommentsNo Allergies foundVital Signs: Vitals and Measurements this Visit (last charted value for your 04/12/2017 visit) Vital Signs This Visit Temperature Oral: 37.1 DegC Peripheral Pulse Rate: 97 bpm Respiratory Rate: 20 br/min Systolic Blood Pressure: 120 mmHg Diastolic Blood Pressure: 90 mmHg SpO2: 98 % O2 Flow: 0 L/min Measurements This Visit Height/Length Dosin.4 cm Weight Dosin.4 kgProblems List:Problem Onset CommentsNo Problems foundMajor Tests and Procedures:The following procedures and tests were performed during your ED visit.LaboratoryRadiologyCar diology Viruses or BacteriaWhat?s got you sick?Antibiotics only treat bacterial infections. Viral illnesses cannot be treated with antibiotics. When an antibiotic is not prescribed, ask your healthcare professional for tips on how to relieve symptoms and feel better. Usual CauseIllnessVirusesBacteria Antibiotic NeededCold/Runny Nose NOBronchitis/Chest Cold (in otherwise healthy children and adults) NOWhooping Cough YesFlu NOStrep Throat YesSore Throat (except strep) NOFluid in the middle ear (otitis media with effusion) NOUrinary Tract Infection YesAntibiotics Aren?t Always the Answerwww.cdc.gov/getsmart GET SMART Know When Antibiotics Jenn.[place] Department of Health and Human ServicesCenters for Disease Control and Prevention March [address] [facility] [place] [address] [facility] ? Urgent [address] [place] [id number] pATIENT DISCHARGE INSTRUCTIONSPatient InformationName: SOLANGE BROWER Age: 32 YearsDate of : [birth year]MRN: [id number] For Visit: Lower leg pain-swelling; LEFT LEG PAIN AND SWELLINGArrival Time: 04/12/17 12:10:00Phone: Primary Care Physician: Pat Page Physician: Bentley Amin-CComment:Visit Diagnosis:Diagnoses This Visit Lower leg pain-swelling ([id number]) Muscle strain of lower leg (S86.918A)If you received any narcotics, sedation, or any other medication that causes drowsiness for the next 24 hours, unless otherwise directed:? Do not drive a car.? Do not operate machinery such as power tools, lawn mowers, drills, sewing machines, or stoves? Avoid alcoholic beverages and drugs for allergies, nerves, or sleep? Do not make important personal or business decisions or sign any legal documentsWith: Address: When:Rober Loya [address], [address] [place], [phone] Business (2) Within 3 to 5 days, only if neededWith: Address: When:Edward Page [address] [place] [address] Business (1) Within 3 to 5 daysMedication Information:The exam and treatment you received today in the [facility] were for an urgent problem and are not intended as complete care. It is important for you to follow up with a doctor, nurse practitioner, or physician?s diver assistant for ongoing care. If your symptoms become worse or you do not improve as expected and you are unable to reach your usual health care provider, you should return to the Emergency Department, we are available 24 hours a day.For those patients who have received Radiology results, the interpretation of your X-ray as given to you by our Urgent Care physician is only a preliminary report. The Radiologist will review your films and if there is a change in the diagnosis you will be notified by phone. Please make sure you have provided a working phone number so we can reach you if necessary.In the event that you had a lab culture while you were a patient in the Urgent Care, you will be notified by phone if there is a need to change your antibiotic. Please make sure you have provided a working phone number so we can reach you if necessary.[facility] has provided you with a complete list of medications post discharge. Please inform your technical sales specialist/provider of your visit and for further instruction on these medications. Any specific questions regarding your chronic medications and dosages should be discussed with your primary care physician(s) and/or pharmacist. New MedicationsPrinted Prescriptionsacetaminophen-h ydrocodone (Beulah 5 mg-325 mg oral tablet) 1 tab(s) Oral Every 6 hours as needed for pain for 3 Days. Refills: 0.Visit InformationAllergies:Substan ce Reaction Symptoms Type CommentsNo Allergies foundVital Signs: Vitals and Measurements this Visit (last charted value for your 04/12/2017 visit) Vital Signs This Visit Temperature Oral: 37.1 DegC Peripheral Pulse Rate: 97 bpm Respiratory Rate: 20 br/min Systolic Blood Pressure: 120 mmHg Diastolic Blood Pressure: 90 mmHg SpO2: 98 % O2 Flow: 0 L/min Measurements This Visit Height/Length Dosin.4 cm Weight Dosin.4 kgProblems List:Problem Onset CommentsNo Problems found Patient EducationMuscle StrainA muscle strain (pulled muscle) happens when a muscle is stretched beyond normal length. It happens when a sudden, violent force stretches your muscle too far. Usually, a few of the fibers in your muscle are torn. Muscle strain is common in athletes. Recovery usually takes 1?2 weeks. Complete healing takes 5?6 weeks. HOME CARE? Follow the HERNANDES method of treatment to help your injury get better. Do this the first 2?3 days after the injury:? Protect. Protect the muscle to keep it from getting injured again.? Rest. Limit your activity and rest the injured body part.? Ice. Put ice in a plastic bag. Place a towel between your skin and the bag. Then, apply the ice and leave it on from 15?20 minutes each hour. After the third day, switch to moist heat packs.? Compression. Use a splint or elastic bandage on the injured area for comfort. Do not put it on too tightly.? Elevate. Keep the injured body part above the level of your heart.? Only take medicine as told by your doctor.? Warm up before doing exercise to prevent future muscle strains.GET HELP IF:? You have more pain or puffiness (swelling) in the injured area.? You feel numbness, tingling, or notice a loss of strength in the injured area.MAKE SURE YOU:? Understand these instructions.? Will watch your condition.? Will get help right away if you are not doing well or get worse.This information is not intended to replace advice given to you by your health care provider. Make sure you discuss any questions you have with your health care provider.Document Released: 04/02/2009 Document Revised: 04/14/2014 Document Reviewed: 01/21/2014Luz [employer] Interactive Patient Education ?2016 [employer] Viruses or BacteriaWhat?s got you sick?Antibiotics only treat bacterial infections. Viral illnesses cannot be treated with antibiotics. When an antibiotic is not prescribed, ask your healthcare professional for tips on how to relieve symptoms and feel better. Usual CauseIllnessVirusesBacteria Antibiotic NeededCold/Runny Nose NOBronchitis/Chest Cold (in otherwise healthy children and adults) NOWhooping Cough YesFlu NOStrep Throat YesSore Throat (except strep) NOFluid in the middle ear (otitis media with effusion) NOUrinary Tract Infection YesAntibiotics Aren?t Always the Answerwww.cdc.gov/getsmart GET SMART Know When Antibiotics Jenn.S. Department of Health and Human ServicesMercy Health Urbana Hospitalers for Disease Control and Prevention March [address] [facility] Vital Signs Date Time Vital Sign Value Performing Clinician Facility 10-14-2021 07:24-0400 Body temperature 97.39 [degF] Bryanna [employer] BW ARCHITECT - CN Work Phone: [facility] 10-14-2021 07:24-0400 Diastolic blood pressure 75 mm[Hg] Bryanna [employer] BW ARCHITECT - CN Work Phone: [facility] 10-14-2021 07:24-0400 Heart rate 67 /min Bryanna [employer] BW ARCHITECT - CN Work Phone: [facility] 10-14-2021 07:24-0400 Respiratory rate 16 /min Bryanna [employer] BW ARCHITECT - CN Work Phone: [facility] 10-14-2021 07:24-0400 Systolic blood pressure 119 mm[Hg] Bryanna [employer] BW ARCHITECT - CN Work Phone: [facility] 10-13-2021 06:01-0400 SaO2% (BldA) [Mass fraction] 96 % Bryanna [employer] BW ARCHITECT - CN Work Phone: [facility] 10-12-2021 10:22-0400 Body mass index (BMI) [Ratio] 52.13 kg/m2 Bryanna [employer] BW ARCHITECT - CN Work Phone: [facility] 10-12-2021 10:22-0400 Body weight 129.28 kg Bryanna [employer] BW ARCHITECT - CN Work Phone: [facility] [employer] 04-02-2022 14:56-0400 Diastolic blood pressure 64 mm[Hg] Dianne Dang [employer] BW ARCHITECT - CNM Work Phone: [employer] 10-07-2021 14:56-0400 Heart rate 76 /min Dianne Dang [employer] BW ARCHITECT - CNM Work Phone: [employer] 10-07-2021 14:56-0400 Systolic blood pressure 123 mm[Hg] Dianne Dang [employer] BW ARCHITECT - CNM Work Phone: [employer] 10-07-2021 14:23-0400 Respiratory rate 18 /min Dianne Dang [employer] BW ARCHITECT - CNM Work Phone: [employer] 09-30-2021 14:03-0400 Body height 157.5 cm Dianne Dang [employer] BW ARCHITECT - CNM Work Phone: [employer] 09-30-2021 14:03-0400 Body mass index (BMI) [Ratio] 51.58 kg/m2 Dianne Dang [employer] BW ARCHITECT - CNM Work Phone: [employer] 09-30-2021 14:03-0400 Body temperature 98.01 [degF] Dianne Rosaleso [employer] BW ARCHITECT - CNM Work Phone: [employer] 09-30-2021 14:03-0400 Body weight 127.91 kg Dianne Dang [employer] BW ARCHITECT - CNM Work Phone: [employer] 09-23-2021 15:35-0400 Body temperature 98.2 [degF] Dianne Dang [employer] BW ARCHITECT - CNM Work Phone: [employer] 09-23-2021 15:35-0400 Diastolic blood pressure 73 mm[Hg] Dianne Dang [employer] BW ARCHITECT - CNM Work Phone: [employer] 09-23-2021 15:35-0400 Heart rate 96 /min Dianne Rosaleso [employer] BW ARCHITECT - CNM Work Phone: [employer] 09-23-2021 15:35-0400 Respiratory rate 18 /min Dianne Rosaleso [employer] BW ARCHITECT - CNM Work Phone: [employer] 09-23-2021 15:35-0400 Systolic blood pressure 118 mm[Hg] Dianne Dang [employer] BW ARCHITECT - CNM Work Phone: [employer] 09-16-2021 15:59-0500 Diastolic blood pressure 72 mm[Hg] Dianne Rosaleso [employer] BW ARCHITECT - CNM Work Phone: [employer] 09-16-2021 15:59-0500 Heart rate 77 /min Dianne Dang [employer] BW ARCHITECT - CNM Work Phone: [employer] 09-16-2021 15:59-0500 Systolic blood pressure 141 mm[Hg] Dianne Dang [employer] BW ARCHITECT - CNM Work Phone: [employer] 09-16-2021 14:25-0500 Body height 157.5 cm Dianne Dang [employer] BW ARCHITECT - CNM Work Phone: [employer] 09-16-2021 14:25-0500 Body mass index (BMI) [Ratio] 49.38 kg/m2 Dianne Dang [employer] BW ARCHITECT - CNM Work Phone: [employer] 09-16-2021 14:25-0500 Body temperature 97.81 [degF] Dianne Dang [employer] BW ARCHITECT - CNM Work Phone: [employer] 09-16-2021 14:25-0500 Body weight 122.47 kg Dianne Dang [employer] BW ARCHITECT - CNM Work Phone: [facility] 09-16-2021 14:25-0500 Respiratory rate 16 /min Dianne Dang [employer] ARCHITECT - CNM Work Phone: [employer] 09-09-2021 14:06-0500 Diastolic blood pressure 68 mm[Hg] Dianne Rosaleso [employer] ARCHITECT - CNM Work Phone: [employer] [facility] 09-09-2021 14:06-0500 Heart rate 78 /min Dianne Rosaleso [employer] ARCHITECT - CNM Work Phone: [employer] [facility] 03-05-2022 14:06-0500 Systolic blood pressure 124 mm[Hg] Dianne Dang [employer] ARCHITECT - CNM Work Phone: [employer] [facility] 09-09-2021 14:04-0500 Body height 158.8 cm Dianne Dang [employer] ARCH[employer]ECT - CNM Work Phone: [facility] 09-09-2021 14:04-0500 Body mass index (BMI) [Ratio] 49.5 kg/m2 Dianne Dang [employer] ARCHITECT - CNM Work Phone: [employer] 09-09-2021 14:04-0500 Body temperature 98.01 [degF] Dianne Dang [employer] ARCHITECT - CNM Work Phone: [facility] 09-09-2021 14:04-0500 Body weight 124.74 kg Dianne Dang [employer] ARCHITECT - CNM Work Phone: [facility] 09-09-2021 14:04-0500 Respiratory rate 18 /min Dianne Dang [employer] ARCHITECT - CNM Work Phone: [facility] 06-14-2021 15:00-0500 Body height 157.48 cm Margie Polina Other [employer] Other 06-14-2021 15:00-0500 Body mass index (BMI) [Ratio] 45.72 kg/m2 Margie Polina Other [employer] Other 06-14-2021 15:00-0500 Body temperature 98.3 [degF] Margie Polina Other [employer] Other 06-14-2021 15:00-0500 Body weight 113.4 kg Margie Polina Other [employer] Other 06-14-2021 15:00-0500 Respiratory rate 18 /min Margie Polina Other [employer] Other 06-14-2021 15:00-0500 SaO2% (BldA) [Mass fraction] 98 % Margie Fish Other [employer] Other Encounters Encounter Date Encounter Type Care Provider Facility Start: 05-03-2023 End: 05-03-2023 ambulatory Edward Page Other [employer] Other Start: 05-03-2023 Office outpatient vi sit 15 minutes Edward Ball [facility] Start: 04-23-2023 End: 04-23-2023 ambulatory Edward Page Other [employer] Other Start: 04-23-2023 Telephone encounter Edward Page [facility] Start: 04-22-2023 End: 04-22-2023 ambulatory Edward Page Other [employer] Other Start: 04-22-2023 Telephone encounter Edward Page [facility] Start: 04-09-2023 End: 04-09-2023 ambulatory Edward Page Other [employer] Other Start: 04-09-2023 Office outpatient vi sit 15 minutes Edward Ball [facility] Start: 09-20-2022 End: 09-20-2022 ambulatory Edward Page Other [employer] Other Start: 09-20-2022 Telephone encounter Edward Ball [facility] Start: 08-29-2022 End: 08-29-2022 ambulatory Edward Page Other [employer] Other Start: 08-29-2022 Office outpatient vi sit 15 minutes Edward Ball [facility] Start: 08-17-2022 Telephone encounter Edward Ball [facility] Start: 08-17-2022 End: 08-18-[address] EDWARD PAGE Facility:[facility] Start: 08-17-2022 End: 08-18-2022 ambulatory BERTO ZIMMERMAN Facility:[facility] Start: 10-12-2021 End: 10-14-2021 Evaluation and management of inpatient BRYANNA BARTH [facility] Start: 10-12-2021 End: 10-14-2021 Evaluation and management of inpatient Bryanna Barth [facility] Work Phone: [facility] Comment on above: Born by sec tion (Primary Dx) Start: 10-07-2021 End: 10-07-2021 ambulatory [facility] Start: 10-07-2021 End: 10-07-2021 Subsequent hospital visit by physician Dianne Clark CNM Work Phone: [facility] Comment on above: Diet controlled gest ational diabetes mellitus (GDM) in third trimester Start: 09-30-2021 End: 09-30-2021 ambulatory [facility] Start: 09-30-2021 End: 09-30-2021 Subsequent hospital visit by physician Dianne Clark CNM Work Phone: [facility] Start: 09-23-2021 End: 09-23-2021 ambulatory [facility] Start: 09-23-2021 End: 09-23-2021 Subsequent hospital visit by physician Dianne Clark CNM Work Phone: [facility] Comment on above: Diet controlled gest ational diabetes mellitus (GDM) in third trimester Start: 09-16-2021 End: 09-16-2021 ambulatory [facility] Start: 09-16-2021 End: 09-16-2021 Subsequent hospital visit by physician Dianne Clark CNM Work Phone: [facility] Comment on above: Diet controlled gest ational diabetes mellitus (GDM) in third trimester Start: 09-09-2021 End: 09-09-2021 ambulatory [facility] Start: 09-09-2021 End: 09-09-2021 Subsequent hospital visit by physician Dianne Floro [employer] ARCH[employer]ECT - CNM Work Phone: [facility] Labor and Delivery Comment on above: Diet controlled gest ational diabetes mellitus (GDM) in third trimester Start: 09-02-2021 End: 09-02-2021 ambulatory DIANNEZofia [facility] Start: 06-14-2021 (URG) Urgent Care Visit Margie marshall [facility] Start: 06-14-2021 End: 06-14-2021 ambulatory Margie Fish Other [facility] [employer] Other Start: 04-12-2017 End: 04-12-2017 Ambulatory Bentley Amin Facility:[facility] Procedures Date Procedure Procedure Detail Performing Clinician Start: 10-14-2021 GLUCOSE, WHOLE BLOOD Va tyler Rosaleso [employer] ARCH[employer] - CNM Work Phone: Start: 10-13-2021 GLUCOSE, WHOLE BLOOD Va lerlinda Floro [employer] - CNM Work Phone: Start: 10-13-2021 GLUCOSE, WHOLE BLOOD Va lerie Floro [employer] ARCHITECT - CNM Work Phone: Start: 10-13-2021 GLUCOSE, WHOLE BLOOD Va lerie Floro [employer] ARCHITECT - CNM Work Phone: Start: 10-13-2021 Assay of magnesium Holab[employer] karo Connieo [employer] ARCH[employer]ECT - CNM Work Phone: Start: 10-13-2021 Blood count hemoglobin Dianne Rosaleso [employer] ARCHITECT - CNM Work Phone: Start: 10-13-2021 GLUCOSE, WHOLE BLOOD Va lerie Floro [employer]CH[employer]ECT - CNM Work Phone: Start: 10-13-2021 Assay of magnesium [employer] karo Floro [employer] ARCHITECT - CNM Work Phone: Start: 10-12-2021 GLUCOSE, WHOLE BLOOD Va lerie Floro [employer] ARCHITECT - CNM Work Phone: Start: 10-12-2021 GLUCOSE, WHOLE BLOOD Va lerie Floro [employer] ARCHITECT - CNM Work Phone: Start: 10-12-2021 GLUCOSE, WHOLE BLOOD Zoila Dang [employer] ARCHITECT - CN Work Phone: Start: 10-12-2021 Antibody screen Eveline Barth [employer] ARCHITECT - CN Work Phone: Start: 10-12-2021 Blood typing serologic abo Bryanna Barth [employer] ARCHITECT - CN Work Phone: Start: 10-12-2021 End: 10-12-2021 Comprehensive metabolic panel Bryanna Barth [employer] ARCHITECT - CN Work Phone: Start: 10-12-2021 Drug screen class list a Bryanna Barth [employer] ARCHITECT - CN Work Phone: Start: 10-12-2021 Urnls dip stick/tabl et rgnt auto w/o microscopy Bryanna Barth [employer] ARCHITECT - CN Work Phone: Start: 10-07-2021 nonstress test Zoila Dang SAP BW ARCHITECT - [facility] Work Phone: Start: 09-26-2021 GBS, EXTERNAL RESULT Nm andrea Provider Start: 09-16-2021 End: 09-16-2021 Comprehensive metabolic panel Ai Burnham [facility] Work Phone: Start: 09-16-2021 nonstress test Zoila Dang SAP BW ARCHITECT - [facility] Work Phone: Start: 03-22-2021 ABO, EXTERNAL RESULT Nm andrea Provider Start: 03-22-2021 C. TRACHOMATIS, EXTE RNAL RESULT Historical Provider Start: 03-22-2021 HEPATITIS B, EXTERNA L RESULT Historical Provider Start: 03-22-2021 HIV, EXTERNAL RESULT Derick mendez Provider Start: 03-22-2021 N. GONORRHOEAE, EXTE RNAL RESULT Historical Provider Start: 03-22-2021 RH FACTOR, EXTERNAL RESULT Historical Provider Start: 03-22-2021 RPR, EXTERNAL RESULT Nm andrea Provider Start: 03-22-2021 RUBELLA TITER, EXTER NAL RESULT Historical Provider Plan of Treatment Date Care Activity Detail Author Start: 07-30-2028 DTaP/Tdap/Td vaccine (7 - Td or Tdap) DTaP/Tdap/Td vaccine (7 - Td or Tdap) [facility] Start: 10-12-2022 Creatinine measurement Creatinine mo nitoring [facility] Start: 10-12-2022 Potassium monitoring Potassium monit oring [facility] Start: 03-08-2022 Influenza vaccination Flu vacc ine (Season Ended) [facility] Start: 01-11-2022 Hemoglobin A1c measurement A1C test (Diabetic or Prediabetic) [facility] Start: 10-21-2021 End: 10-21-2021 Patient encounter procedure 10/21/2021 Appointment IP Unit [facility] Start: 10-18-2021 Subsequent hospital visit by physician 10/18/2021 Hospital Encounter Obstetrics and Gynecology Dianne Dang, ESTHER - [facility] [address] [place] [address] [facility] Start: 10-17-2021 End: 10-17-2021 Patient encounter procedure 10/17/2021 Appointment IP Unit [facility] Start: 10-14-2021 End: 10-14-2021 Patient encounter procedure 10/14/2021 Appointment IP Unit [facility] Start: 10-07-2021 End: 10-07-2021 Patient encounter procedure 10/07/2021 Appointment IP Unit [facility] Start: 09-30-2021 End: 09-30-2021 Patient encounter procedure 09/30/2021 Appointment IP Unit [facility] Start: 09-23-2021 End: 09-23-2021 Patient encounter procedure 09/23/2021 Appointment IP Unit [facility] Start: 09-16-2021 End: 09-16-2021 Patient encounter procedure 09/16/2021 Appointment IP Unit [facility] Start: 2021 Diabetes screen Diabetes screen [facility] Start: 03-08-2021 Influenza vaccination Flu vaccine (# 1) [facility] Start: 2016 Screening for malign ant neoplasm of cervix [facility] Start: 2007 Screening for malign ant neoplasm of cervix Pap smear [facility] Start: 2001 HIV screening HIV screen [facility] Start: 1998 Depression Screen Depression Screen [facility] Start: 1991 COVID-19 Vaccine (1) COVID-19 Vaccin e (1) [facility] Start: 1987 Varicella vaccine (1 of 2 - 2-dose childhood series) Varicella vaccine (1 of 2 - 2-dose childhood series) [facility] Start: 1986 Hepatitis C screening Hepatitis C sc reen [facility] End: 09-09-2021 nonstress test [email or web address] Phone: Comment on above: 1 Occurrences starti ng 09/09/2021 until 09/09/2021 As Needed for 8 Occu rrences starting 09/09/2021 End: 09-23-2021 nonstress test nonstress test OB Routine Diet controlled gestational diabetes mellitus (GDM) in third trimester 1 Occurrences starting 09/23/2021 until 09/23/2021 [email or web address] Phone: Comment on above: 1 Occurrences starti ng 09/23/2021 until 09/23/2021 End: 10-13-2021 Glucose [Mass/volume] in Serum or Plasma Glucose, Random Lab Timed Tomorrow AM for 1 Occurrences starting 10/13/2021 until 10/13/2021 [email or web address] Phone: Comment on above: Tomorrow AM for 1 Oc currences starting 10/13/2021 until 10/13/2021 Glucose [Mass/volume ] in Serum or Plasma [email or web address] Phone: Comment on above: 4X Daily (AC & HS) u ntil discontinued starting 10/12/2021 As Needed until disc ontinued starting 10/12/2021 End: 10-19-2021 Magnesium [Mass/volume] in Serum or Plasma Magnesium Lab Routine Every 6 Hours (Lab) for 7 Days starting 10/12/2021 until 10/19/2021, 3 completed [email or web address] Phone: Comment on above: Every 6 Hours (Lab) for 7 Days starting 10/12/2021 until 10/19/2021, 3 completed Nonrebreather mask oxygen Nonrebreather mask oxygen Respiratory Care Routine As directed - RT (PRN) until discontinued starting 10/12/2021 [email or web address] Phone: Comment on above: As directed - RT (WA N) until discontinued starting 10/12/2021 Oxygen therapy [[facility] Data Set] Initiate Oxygen Therapy Protocol Respiratory Care Routine As Needed until discontinued starting 10/12/2021 [email or web address] Phone: Comment on above: As Needed until disc ontinued starting 10/12/2021 Spirometry panel Incentive itz metry Respiratory Care Routine Every 2hr while awake until discontinued starting 10/12/2021 [email or web address] Phone: Comment on above: Every 2hr while awak e until discontinued starting 10/12/2021 End: 10-12-2021 Surgical Pathology Surgical Pathology Lab Routine One Time for 1 Occurrences starting 10/12/2021 until 10/12/2021 [email or web address] Phone: Comment on above: One Time for 1 Occur rences starting 10/12/2021 until 10/12/2021 End: 10-12-2021 SURGICAL PATHOLOGY REPORT SURGICAL PATHOLOGY REPORT Lab Routine Once for 1 Occurrences starting 10/12/2021 until 10/12/2021 [email or web address] Phone: Comment on above: Once for 1 Occurrenc es starting 10/12/2021 until 10/12/2021 End: 10-13-2021 SURGICAL PATHOLOGY REPORT SURGICAL PATHOLOGY REPORT Lab Routine Once for 1 Occurrences starting 10/13/2021 until 10/13/2021 [email or web address] Phone: Comment on above: Once for 1 Occurrenc es starting 10/13/2021 until 10/13/2021 Immunizations Immunization Date Immunization Notes Care Provider Fa cility 10-12-2021 diphtheria, tetanus toxoids and acellular pertussis vaccine, unspecified formulation Bryanna Pool [employer] ARCHITECT - CNM Work Phone: [email or web address] Phone: 10-12-2021 measles, mumps and rubella virus vaccine Bryanna Pool [employer] BW ARCHITECT - CNM Work Phone: [email or web address] Phone: Payers Date Payer Category Payer Unknown [id number] 1985 Unknown [id number] [id number] [id number] 1986 Unknown [id number] [id number] [id number] 1986 Unknown [id number] 2.16.8 [id number] 1986 Unknown [id number] 2.16.8 [id number] 1986 Unknown [id number] 2.16.8 [id number] 1986 Unknown [id number] 2.16.8 [id number] 1986 Unknown [id number] 2.16.8 [id number] 1986 Unknown [id number] 2.16.84 [id number] 1986 Unknown [id number] 2.16.84 [id number] 1959 Private Health Insurance [id number] Social History Date Type Detail Facility Start: 04-19-2021 Tobacco smoking status [facility] Never smoked tobacco [place] [employer] Other Start: 04-19-2021 Tobacco use and exposure Smokeless tobacco non-user [employer] Phone: Start: 09-09-2021 End: 10-12-2021 Alcohol intake Ex-drinker (finding) [employer] Phone: Start: 01-31-2021 [employer] [facility] Work Phone: Start: 1985 Sex Assigned At Not on file [employer] Work Phone: Start: 09-13-2021 End: 10-12-2021 Exposure to SARS-CoV-2 (event) [facility] Sex [facility] At Bir th [employer] Other Clinical Notes 06-14-2021 to 05-03-2023 Note Date & Type Note Facility 05-03-2023 Evaluation note Encounter Date Diagnosis Assessment Notes Apr, Mild episode of recurrent major depressive disorder (ICD-10 - F33.0) Healthy diet, exercise and keep active. Continue medical therapy and f/u in office in next 1-2 mo Apr, Insomnia due to other mental disorder (ICD-10 - F51.05) Consistent nighttime routine. Avoid exercise, eating and TV prior to bedtime. Reading and relaxation Hydroxyzine as needed Apr, Mental disorder, 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) [employer] Other 10-16-2023 Evaluation note* Encounter Date Diagnosis Assessment Notes Treatment Notes Treatment Clinical Notes Apr, Mild episode of recurrent major depressive disorder (ICD-10 - F33.0) [employer] Other 10-03-2023 Evaluation note* Encounter Date Diagnosis Assessment Notes Treatment Notes Treatment Clinical Notes Apr, Mild episode of recurrent major depressive disorder (ICD-10 - F33.0) Healthy diet, exercise and keep active. Recommend medical leave from work for next 2 wks Apr, Insomnia due to other mental disorder (ICD-10 - F51.05) Consistent bedtime routine. Avoid TV, Phone, exercise etc. Read, listen to music etc. Apr, Mental disorder, 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) Insomnia due to ruminating over days events. Treat underlying condition and insomnia should improve [employer] Other 02-22-2023 Evaluation note* Encounter Date Diagnosis Assessment Notes Treatment Notes Treatment Clinical Notes Aug, Pharyngitis due to Streptococcus species (ICD-10 - J02.0) Gargle w/ salt water, tylenol and rest [employer] Other 04-09-2022 History of Present illness Narrative* Dianne Dang, SAP BW ARCHITECT - CNM - 10/14/2021 8:56 AM EDT C/S Labor and Delivery Post Progress Note SUBJECTIVE: Doing well, sitting in bed holding her baby, I'm ready to go home Flatus:Present BM:no Diet: Tolerating regular diet Ambulation: Ambulateswithout difficulty OBJECTIVE: Vitals: BP 119/75 Pulse 67 Temp 97.4 F (36.3 C) (Oral) Resp 16 Wt 285 lb (129.3 kg) SpO2 96% Unknown BMI 52.13 kg/m Patient Vitals for the past 24 hrs: BP Temp Temp src Pulse Resp 10/14/21 0724 119/75 97.4 F (36.3 C) Oral 67 16 10/14/21 0151 121/63 98.3 F (36.8 C) Oral 71 16 10/13/21 2240 (!) 125/59 69 10/13/21 2043 (!) 125/59 98 F (36.7 C) 69 18 10/13/21 1515 (!) 98/52 98.2 F (36.8 C) Oral 77 16 10/13/21 1159 (!) 119/58 98 F (36.7 C) Oral 70 16 10/13/21 1059 114/67 77 10/13/21 0959 118/73 76 10/13/21 0859 119/74 79 ABDOMEN: No scars, normal bowel sounds, soft, non-distended, non-tender, no masses palpated, no hepatosplenomegally INCISION: dressing in place, clean, dry and intact, MARY KAY dressing intact GENITAL/URINARY: External Genitalia: General appearance; normal, Lesions absent Cor: RRR no Murmurs Pulmonary: clear to auscultation anterior and posterior Extremities: no Clubbing cyanosis or ecchymosis DATA: 36 yo S/P repeat section with bilateral salpingectomy Breast and bottle feeding ASSESSMENT: Principal Problem: Abdominal pain Plan: Active Problems: Hypertension affecting in first trimester Plan: Hypertension affecting in third trimester Plan: S/P C/S post op day # 2 PLAN: Discharge patient to home with Follow up with me next week for 1 week post op, post check * ESTHER Frazier CNM - 10/13/2021 9:25 AM EDT C/S Labor and Delivery Post Progress Note Flatus: yes Bm:no Diet: Tolerating regular diet Ambulation: Ambulates OBJECTIVE: Vitals: VSS ABDOMEN: NT INCISION: C/D NSI GENITAL/URINARY: normal Pulmonary: no resp distress Extremities: mild pedal edema ASSESSMENT: S/P C/S post op day # PLAN: F/U in am Stop MgSo4 at 11am * Lilo Kulkarni RN - 10/13/2021 5:17 AM EDT Mindy Dang CNM notified of mag level and pt urine output. Orders received to decrease mag to 1g at 25mL/hr. LR may be decreased to 50mL/hr. * Lilo Kulkarni RN - 10/12/2021 10:45 PM EDT Mindy Dang CNM notified of mag level. Orders received. * ESTHER Alejandre CNM - 10/12/2021 9:40 AM EDT Message received from ADELA Caceres who is pathology transcriptionist today that my patient has arrived to the unitand she has elevated blood pressures. Hypertension protocol being started and Dr Panda would like to proceed with her repeat section soon. 09 this write leaves my office and enroute to [place], documented in this [facility] [employer] Phone: [phone]) 281-991403-19-2022 History of Present illness Narrative* Shanel Raymundo RN - 09/23/2021 3:40 PM EDT Pt here for scheduled NST. Pt states she is insulin controlled gestational diabetic and sees [facility] attir satellite office. Pt reports + movement today. Pt denies vaginal bleeding or leaking offluid. Pt states that she sometimes has back pain if she stands for too long, pt denies pain currently. Pt denies pain or burning when urinating. Pt denies headache or blurred vision. marker button given. [facility] Phone: [phone]) 614-404412-08-2021 Evaluation note* Encounter Date Diagnosis Assessment Notes Treatment Notes Treatment Clinical Notes Jun, Contact with and (suspected) exposure to other viral communicable diseases (ICD-10 - Z20.828) Jun, Viral upper respiratory illness (ICD-10 - J06.9) Drink plenty of fluids, get plenty of rest. Use your Flonase, 2 sprays to each nostril daily until your symptoms improve. Take Tylenol as needed for aches pains or fevers. Follow-up with your family physician if no improvement in 2 to 3 days. Jun, Sore throat (ICD-10 - J02.9) Jun, Other Additional time spent conducting pre-visit phone call, screening for symptoms, instructions on social distancing, application and removal of PPE, and cleaning of examination room, equipment and supplies was preformed. Patient education given for testing methodology and results. Patient care instructions given in writting by CDC [facility] At Home document. [employer] Other Evaluation note* Diagnosis Diet controlled gestational diabetes mellitus (GDM) in third trimester documented in this encounter [email or web address] Phone: evaluation note* Diagnosis Diet controlled gestational diabetes mellitus (GDM) in third trimester documented in this encounter [employer] Phone: evaluation note* Diagnosis Diet controlled gestational diabetes mellitus (GDM) in third trimester documented in this encounter [employer] Phone: [email or web address] note* Diagnosis Diet controlled gestational diabetes mellitus (GDM) in third trimester documented in this encounter [employer] Phone: [email or web address] note* Diagnosis Abdominal pain- Primary Abdominal pain, unspecified site Born by section Hypertension affecting in first trimester Hypertension affecting in third trimester documented in this encounter [employer] Phone: [email or web address] noteNo InformationNort [employer] Other Hisrshg general Narrative - Reported* Type Description Date Medical History anxiety Surgical History back surgery Surgical History tonsillectomy Surgical History C section Surgical History PE tubes Surgical History adnoidectomy Hospitalization History child [employer] Other Hismlve general Narrative - Reported* Type Description Date Medical History Mild episode of recurrent major depressive disorder Medical History Malaise Medical History Postcoital and contact bleeding Medical History RYAN (generalized anxiety disorde r) Medical History Acute bronchitis due to other sp ecified organisms Medical History Diarrhea with dehydration Medical History Abdominal pain, periumbilical Medical History Pharyngitis Medical History Gastroesophageal ref lux disease with esophagitis without hemorrhage Surgical History back surgery Surgical History tonsillectomy Surgical History C section Surgical History PE tubes Surgical History adnoidectomy Surgical History DIVISION OF FALLOPIAN TUBE 2021 Hospitalization History child Hospitalization History SEE SURGICAL [employer] Other Hisceju general Narrative - Reported* Type Description Date Medical History Mild episode of recurrent major depressive disorder Medical History Malaise Medical History Postcoital and contact bleeding Medical History RYAN (generalized anxiety disorde r) Medical History Acute bronchitis due to other sp ecified organisms Medical History Diarrhea with dehydration Medical History Abdominal pain, periumbilical Medical History Pharyngitis Medical History Gastroesophageal ref lux disease with esophagitis without hemorrhage Surgical History back surgery Surgical History tonsillectomy Surgical History C section Surgical History PE tubes Surgical History adnoidectomy Surgical History DIVISION OF FALLOPIAN TUBE 2021 Surgical History Bariatric Surgery 09/2022 Hospitalization History child Hospitalization History SEE SURGICAL [employer] Other Hospital Discharge instructions* Attachments The following attachments cannot be sent through Care Everywhere. * Section: Post-op (Iranian) * (Iranian) * Video: Caring for Yourself After Delivery (Iranian) * : Exercises (Iranian) * Depression: (Iranian) * Parenting: Stress and Infants (Iranian) documented in this encounterSelect [facility], IncAirpowered Work Phone: Summary Purpose Family History No Family History Records FoundNo Family History Records FoundNo Family History Records FoundNo Family History Records FoundNo Family History Records FoundNo Family History Records Found Advance Directives Latest Code Status on File Code Status Date Activated Date Inactivated Comments Full Code 10/12/2021 9:23 AM 10/12/2021 1:23 PM Additional Source Comments INFORMATION SOURCE (unrecogn ized section and content) DATE CREATED AUTHOR 12/31/2017 [facility] DATE CREATED AUTHOR AUTHOR'S ORGANIZ ATION 05/15/2021 [facility] DATE CREATED AUTHOR AUTHOR'S ORGANIZ ATION 06/21/2021 [facility] DATE CREATED AUTHOR AUTHOR'S ORGANIZ ATION 09/27/[address] [facility] dical Specialist DATE CREATED AUTHOR AUTHOR'S ORGANIZ ATION 10/16/2021 [facility] DATE CREATED AUTHOR AUTHOR'S ORGANIZ ATION 08/28/2022 [facility] Reason for Visit (unrecogniz ed section and content) disability - return to work date [phone] Reason Comments Non-stress Test Reason Comments Abdominal Pain Specialty Diagnoses / Procedures Referred By Contac t Referred To Contact Diagnoses Abdominal pain Hypertension affecting in first trimester Hypertension affecting in third trimester Bryanna Barth, SAP BW ARCHITECT - CNM [address] [place] [address] [facility] [address] [place] [address] Referral ID Status Reason Start Date Expiration Date Visits Re quested Visits Authorized 1 1 Care Teams (unrecognized sec tion and content) Scale Balancer Relationship Specialty Start Date End Date Edward Page DO [address] [place] [address] PCP - General Internal Medicine 06/21/21 Scale Balancer Relationship Specialty Start Date End Date Edward Page DO [address] [facility] [place] [id number] PCP - General Internal Medicine 06/21/21 Scale Balancer Relationship Specialty Start Date End Date Edward Page, DO [address] [facility] [place] [phone] PCP - General Internal Medicine 06/21/21 Scale Balancer Relationship Specialty Start Date End Date Edward Page, DO [address] [facility] [place] [id number] PCP - General Internal Medicine 06/21/21 Scale Balancer Relationship Specialty Start Date End Date Edward Page, DO [address] [facility] [place] [address] PCP - General Internal Medicine 06/21/21 Scale Balancer Relationship Specialty Start Date End Date Edward Page, DO [address] [facility] [place] [phone] PCP - General Internal Medicine 06/21/21 Ordered Prescriptions (unrec ognized section and content) Prescription Sig Dispensed Refills Start Date End Da te docusate sodium (COLACE) 100 MG capsule Take 1 capsule by mouth 2 times daily 60 capsule 2 10/14/2021 lansinoh lanolin CREA ointment Apply 1 applicator topically every hour as needed for Dry Skin (nipple discomfort) 1 each 3 10/14/2021 ibuprofen (ADVIL;MOTRIN) 800 MG tablet Take 1 tablet by mouth every 8 hours 120 tablet 3 10/14/2021 oxyCODONE-acetaminophe n (PERCOCET) 5-325 MG per tabletIndications:Born by section Take 1 tablet by mouth every 8 hours as needed for Pain for up to 3 days. 10 tablet 0 10/14/2021 10/17/2021 Scheduled Active and Recently Administ ered Medications (unrecognized section and content) Medication Order 10/12/2021 10/13/2021 10/14/2021 citric acid-sodium citrate (BICITRA) solution 30 mL (COMPLETED) 30 mL, Oral, ONCE, 1 dose, On Denisha 10/12/21 at 1045, Give prior to epidural placement., Labor and Delivery 1039 (Given - Provider: Milla Davis RN) clindamycin (CLEOCIN) 900 mg in dextrose 5 % 50 mL IVPB (COMPLETED) 900 mg, IntraVENous, ONCE, 1 dose, On Denisha 10/12/21 at 1045, Antimicrobial Indications: Surgical Prophylaxis 1048 (New Bag - Provider: Milla Davis RN)1101 (Stopped - Provider: ESTHER Rocha CRNA) docusate sodium (COLACE) capsule 100 mg 100 mg, Oral, 2 TIMES DAILY, First dose on Denisha 10/12/21 at 1345, Until Discontinued, Do not crush or break., 1410 (Given - Provider: Milla Davis RN)2151 (Given - Provider: Lilo Kulkarni RN) 0807 (Given - Provider: Nohemy Nuñez RN)2047 (Given - Provider: Elif Prince, RN) 0930 (Given - Provider: Leda Glez, SHANON)2100 (Due) enoxaparin (LOVENOX) injection 60 mg 60 mg, SubCUTAneous, EVERY 24 HOURS, First dose on Sat10/13/21 at 0130, Until Discontinued, 0112 (Given - Provider: Lilo Kulkarni, SHANON) 0151 (Given - Provider: Elif Prince, RN) famotidine (PEPCID) 20 mg in sodium chloride (PF) 10 mL injection (COMPLETED) 20 mg, IntraVENous, ONCE, 1 dose, On Denisha 10/12/21 at 1045, Give 60 minutes before surgery., Labor and Delivery 1100 (Given - Provider: Milal Davis RN) gentamicin (GARAMYCIN) 500 mg in dextrose 5 % 250 mL IVPB (COMPLETED) 500 mg, IntraVENous, ONCE, 1 dose, On Denisha 10/12/21 at 1045, Antimicrobial Indications: Surgical Prophylaxis 1128 (New Bag - Provider: ESTHER Rocha CRNA - Comment: given over 60 minutes.) ibuprofen (ADVIL;MOTRIN) tablet 800 mg 800 mg, Oral, EVERY 8 HOURS, First dose on Sat10/13/21 at 1830, Until Discontinued, Do not start till 6 hours after last dose of toradol. Do not crush or break., Post-op 1804 (Given - Provider: Leda Glez RN) 0151 (Given - Provider: Elif Prince RN)1031 (Given - Provider: Leda Glez RN)1830 (Due) insulin lispro (HUMALOG) injection vial 0-3 Units 0-3 Units, SubCUTAneous, NIGHTLY, First dose on Sat10/12/21 at 2100, Until Discontinued, If continuous tube feedings/TPN/NPO, give correction dose based on result, no reduction in dose. If eating or bolus tube feeding: Low Dose Bedtime Correction Algorithm Glucose: Dose: 70-139 No Insulin 140-249 1 Unit 250-349 2 Units 350 and above 3 Units 2147 (Given - Provider: Lilo Kulkarni RN - Comment: POCT 229) 204 (Given - Provider: Elif Prince RN) 2100 (Due) insulin lispro (HUMALOG) injection vial 0-6 Units 0-6 Units, SubCUTAneous, 3 TIMES DAILY WITH MEALS, First dose on Sat10/12/21 at 1700, Until Discontinued, Low Dose Correction Algorithm Glucose: Dose: 70-139 No Insulin 140-199 1 Unit 200-249 2 Units 250-299 3 Units 300-349 4 Units 350-399 5 Units 400 and above 6 Units 1830 (Given - Provider: Milla Davis RN) 0730 (Not Given - Provider: Nohemy Nuñez RN - Reason: Order parameters not met - Comment: blood sugar 137, not within parameters)1200 (Not Given - Provider: Nohemy Nuñez RN - Reason: Order parameters not met - Comment: BS 136)1800 (Given - Provider: Leda Glez RN) 0753 (Not Given - Provider: Leda Glez RN - Reason: Order parameters not met)1200 (Due)1700 (Due) ketorolac (TORADOL) injection 30 mg (COMPLETED) Ketorolac is contraindicated in patients with advanced renal impairment and in patients at risk of renal failure due to volume depletion. For 65 years of age and older OR weight less than 50 kg, use 15 mg IV every 6 hours; MAX dose: 60 mg/day. Dose greater than 30 mg must be administered via intramuscular route. Do not administer for more than 5 days., 30 mg, IntraVENous, EVERY 6 HOURS, 4 doses, First dose on Denisha 10/12/21 at 1830, Last dose on Sat10/13/21 at 1230, Do not administer for more than 5 days., 1833 (Given - Provider: Milla Davis RN) 0111 (Given - Provider: Lilo Kulkarni RN)0625 (Given - Provider: Lilo Kulkarni RN)1126 (Given - Provider: Nohemy Nuñez RN) labetalol (NORMODYNE) tablet 200 mg 200 mg, Oral, EVERY 8 HOURS SCHEDULED (3 times per day), 9 doses, First dose on Sat10/12/21 at 1400, Last dose on Sat10/15/21 at 0600 1409 (Given - Provider: Milla Davis RN)2151 (Given - Provider: Lilo Kulkarni RN) 0625 (Given - Provider: Lilo Kulkarni RN)1445 (Given - Provider: Leda Glez, SHANON)2240 (Given - Provider: Elif Prince RN) 0600 (Due)1400 (Due)2200 (Due) lactated ringers infusion 1,000 mL 1,000 mL, IntraVENous, at 1,000 mL/hr, ONCE, On Denisha 10/12/21 at 1345, For 1 dose, Labor and Delivery. Administer bolus one hour prior to surgery., Labor and Delivery (Signed and Held) 1700 (Not Given - Provider: Milla Davis RN - Reason: Order parameters not met) 1128 (Stopped - Provider: Leda Glez, SHANON) magnesium sulfate 4000 mg in 100 mL IVPB premix (COMPLETED) 4,000 mg, IntraVENous, at 300 mL/hr, Administer over 20 Minutes, ONCE, On Denisha 10/12/21 at 1015, For 1 dose, Pre-Infusion: Assess baseline vital signs, breath sounds, oxygen saturation level, intake and output, and neurologic status (deep tendon reflexes, presence or absence of clonus, and level of consciousness (LOC). Vitals to include baseline temperature. Temperature to be reassessed every 4 hours if membranes are intact or every 2 hours if membranes have ruptured. Loading Dose/Infusion: Stay with the patient during the loading dose to monitor for adverse drug reactions. - Monitor pulse oximetry continuously throughout the infusion - Monitor vital signs, deep tendon reflexes, and LOC every 15 minutes for one hour, then every 30 minutes for one hour, then hourly while infusing Notify care provider immediately of absent deep tendon reflexes, a urine output of less than 30 mL/hour, respirations of less than 12 breaths/minute, or an oxygen saturation level of less than 90%. Grams to milligrams conversion table: 1 gram = 1000 mg 2 grams = 2000 mg 4 grams = 4000 mg 6 grams = 6000 mg 20 grams = 20,000 mg 1025 (New Bag - Provider: Milla Davis RN)1057 (Stopped - Provider: Milla Davis RN) metoclopramide (REGLAN) injection 10 mg (COMPLETED) 10 mg, IntraVENous, ONCE, 1 dose, On Denisha 10/12/21 at 1045, Give 60 minutes before surgery., Labor and Delivery 1038 (Given - Provider: Milla Davis RN) metroNIDAZOLE (FLAGYL) tablet 500 mg 500 mg, Oral, EVERY 8 HOURS SCHEDULED (3 times per day), 6 doses, First dose on Denisha 10/12/21 at 2200, Last dose on 10/14/21 at 1400, Antimicrobial Indications: Surgical Prophylaxis 2151 (Given - Provider: Lilo Kulkarni RN) 0625 (Given - Provider: Lilo Kulkarni RN)1445 (Given - Provider: Leda Glez RN)2239 (Given - Provider: Elif Prince RN - Comment: Pt request) 0600 (Due)1400 (Due) vitamin 27-1 MG tablet 1 tablet 1 tablet, Oral, DAILY, First dose on Denisha 10/12/21 at 1345, Until Discontinued, Begin when normal bowel activity resumes., 1701 (Not Given - Provider: Milla Davis RN - Reason: Other) 0807 (Given - Provider: Nohemy Nuñez RN) 0930 (Given - Provider: Leda Glez RN) sodium chloride flush 0.9 % injection 10 mL 10 mL, IntraVENous, EVERY 12 HOURS SCHEDULED (2 times per day), First dose on Denisha 10/12/21 at 2100, Until Discontinued, 2151 (Not Given - Provider: Lilo Kulkarni RN - Reason: IV Fluid Infusing) 0846 (Not Given - Provider: Nohemy Nuñez RN - Reason: Order parameters not met - Comment: IV infusing)2100 (Due) 1012 (Not Given - Provider: Leda Glez RN - Reason: Other - Comment: IV removed)2100 (Due) vkzbixo-scqtna-uotwz pertussis (BOOSTRIX) injection 0.5 mL 0.5 mL, IntraMUSCular, PRIOR TO DISCHARGE, 1 dose, Starting on Denisha 10/12/21 at 1323, Until Discontinued, If not previously administered during at 27-36 weeks as recommended by CDC., Continuous Medication Order 10/12/2021 10/13/2021 10/14/2021 lactated ringers infusion (CANCELED) IntraVENous, at 150 mL/hr, CONTINUOUS, Starting on Denisha 10/12/21 at 1015 1018 (New Bag - Provider: Milla Davis RN)1101 (NoRateChange - Provider: Ruben Mccabe APRN - [employer]) lactated ringers infusion IntraVENous, at 50 mL/hr, CONTINUOUS, Starting on Denisha 10/12/21 at 1345, 1256 (Rate/Dose Change - Provider: Milla Davis RN)2150 (Rate/Dose Change - Provider: Lilo Kulkarni RN)2245 (Rate/Dose Change - Provider: Lilo Kulkarni RN) 0522 (Rate/Dose Change - Provider: Lilo Kulkarni RN) 1127 (Stopped - Provider: Leda Glez RN) magnesium sulfate (20196 mg/500mL infusion) (CANCELED) 2,000 mg/hr (50 mL/hr), IntraVENous, CONTINUOUS, Starting on Denisha 10/12/21 at 1015, Until Denisha 10/12/21 at 1323, Pre-Infusion: Assess baseline vital signs, breath sounds, oxygen saturation level, intake and output, and neurologic status (deep tendon reflexes, presence or absence of clonus, and level of consciousness (LOC), presence of headaches or visual disturbances, presence or absence of epigastric pain. Vitals to include baseline temperature. Temperature to be reassessed every 4 hours if membranes are intact or every 2 hours if membranes have ruptured. Loading Dose/Infusion: Stay with the patient during the loading dose to monitor for adverse drug reactions. - Monitor pulse oximetry continuously throughout the infusion - Monitor vital signs, deep tendon reflexes, and LOC every 15 minutes for one hour, then every 30 minutes for one hour, then hourly while infusing Notify care provider immediately of absent deep tendon reflexes, a urine output of less than 30 mL/hour, respirations of less than 12 breaths/minute, or an oxygen saturation level of less than 90%. Grams to milligrams conversion table: 1 gram = 1000 mg 2 grams = 2000 mg 4 grams = 4000 mg 6 grams = 6000 mg 20 grams = 20,000 mg 1049 (New Bag - Provider: Milla Davis RN)1101 (NoRateChange - Provider: Ruben Mccabe APRN - [facility]) magnesium sulfate (28946 mg/500mL infusion) () 1,000 mg/hr (25 mL/hr), IntraVENous, CONTINUOUS, Starting on Denisha 10/12/21 at 2200, Until Sat10/13/21 at 1159, 1000 mg = 1 gram; 2000 mg = 2 grams; 20,000 mg = 20 grams 2149 (New Bag - Provider: Lilo Kulkarni RN) 0521 (Rate/Dose Change - Provider: Lilo Kulkarni RN)0810 (New Bag - Provider: Nohemy Nuñez RN)1102 (Stopped - Provider: Nohemy Nuñez RN) PRN Medication Order 10/12/2021 10/13/2021 10/14/2021 0.9 % sodium chloride infusion IntraVENous, at 5-250 mL/hr, PRN, if patient receiving piggyback infusions and maintenance fluids are not ordered OR KVO fluids to protect IV site / prevent frequent line interruptions/ long duration, Starting on Denisha 10/12/21 at 1318, For piggyback infusion, administer at same rate as piggyback for a total of 25 mL. Enter 25 mL into dose field and piggyback rate into rate field of order. If piggyback is infusing at a rate less than 100 mL/hr, enter 25 mL into dose field and 100 mL/hr into rate field of order. For KVO fluids, enter rate of 20 mL/hr or less into rate field of order., Labor and Delivery (Signed and Held) 0.9 % sodium chloride infusion 25 mL, IntraVENous, at 100 mL/hr, PRN, If patient receiving piggyback infusions without ordered maintenance IV fluids or with frequent/long duration piggyback infusions, Starting on Denisha 10/12/21 at 1323, Administer at the same rate as the piggyback being infused., acetaminophen (TYLENOL) tablet 650 mg 650 mg, Oral, EVERY 4 HOURS PRN, Starting on Denisha 10/12/21 at 1323, Until Discontinued, Pain Mild (1-3), Fever, Fever >100.5 F (38 C) or incisional pain, Maximum dose of acetaminophen is 4000 mg from all sources in 24 hours., Post-op carboprost (HEMABATE) injection 250 mcg 250 mcg, IntraMUSCular, PRN, Starting on Denisha 10/12/21 at 1323, Until Discontinued, bleeding, May repeat every 15 minutes up to a cumulative maximum dose of 1000 mcg, at physician's request., Post-op dextrose 5 % solution 100 mL/hr, IntraVENous, PRN, Low blood sugar, Starting on Denisha 10/12/21 at 1458, Start infusion following administration of dextrose 50% or glucagon. 1129 (Stopped - Provider: Leda Glez RN) dextrose 50 % IV solution 12.5 g, IntraVENous, PRN, Starting on Denisha 10/12/21 at 1458, Until Discontinued, Low blood sugar, Blood glucose less than 70 mg/dL and patient NOT ALERT or NPO., If patient does not respond within 5 minutes, repeat dose x1. Start D5W at 100 mL/hour until ordering provider can be reached. Repeat blood glucose in 15 minutes. If blood glucose is less than 70 mg/dL, repeat treatment and recheck blood glucose in 15 minutes x2. If using Glucostabilizer, dose as instructed per system. 1129 (Not Given - Provider: Leda Glez RN - Reason: Order parameters not met) diphenhydrAMINE (BENADRYL) injection 25 mg 25 mg, IntraVENous, EVERY 6 HOURS PRN, Starting on Denisha 10/12/21 at 1323, Until Discontinued, Itching, Hives, glucagon (rDNA) injection 1 mg 1 mg, IntraMUSCular, PRN, Starting on Denisha 10/12/21 at 1458, Until Discontinued, Low blood sugar, Blood glucose less than 70 mg/dL and patient NOT ALERT or NPO and does not have IV access., After administration, attempt intravenous access and start D5W at 100 mL/hr. Repeat blood glucose in 15 minutes x2 and notify provider. glucose (GLUTOSE) 40 % oral gel 15 g 15 g, Oral, PRN, Starting on Denisha 10/12/21 at 1458, Until Discontinued, Low blood sugar, If blood glucose less than 50 mg/dL and patient ALERT and TOLERATING PO, give 2 tubes glucose gel. If blood glucose less than 70 mg/dL and patient ALERT and TOLERATING PO, give 1 tube glucose gel. Repeat blood glucose in 15 minutes. If blood glucose is less than 70 mg/dL, repeat treatment and recheck blood glucose in 15 minutes x2 and notify provider. lansinoh lanolin ointment Topical, EVERY 1 HOUR PRN, Dry Skin, nipple discomfort, Starting on Denisha 10/12/21 at 1323, Post-op measles, mumps & rubella vaccine (MMR) injection 0.5 mL 0.5 mL, SubCUTAneous, PRN, 1 dose, Starting on Denisha 10/12/21 at 1323, Until Discontinued, if non immune or equivical, methylergonovine (METHERGINE) injection 200 mcg 200 mcg, IntraMUSCular, PRN, Starting on Denisha 10/12/21 at 1323, Until Discontinued, Bleeding, PRN for post- hemorrhage, if not hypertensive., miSOPROStol (CYTOTEC) tablet 800 mcg 800 mcg, Rectal, PRN, 1 dose, Starting on Denisha 10/12/21 at 1323, Until Discontinued, Post- Hemorrhage, Notify Physician prior to administration., Post-op nalbuphine (NUBAIN) injection 10 mg 10 mg, IntraVENous, EVERY 4 HOURS PRN, Starting on Denisha 10/12/21 at 1323, Until Discontinued, or itching, Post-op naloxone (NARCAN) injection 0.4 mg 0.4 mg, IntraVENous, PRN, Starting on Denisha 10/12/21 at 1323, Until Discontinued, Opioid Reversal, Post-op NIFEdipine (PROCARDIA) capsule 10 mg (COMPLETED) 10 mg, Oral, ONCE PRN, 1 dose, Starting on Denisha 10/12/21 at 0955, Until Denisha 10/12/21 at 1006, High Blood Pressure, For SBP greater than or equal to 160 or DBP greater than or equal to 110, Begin with 10 mg dose. If hypertension unresolved in 20 minutes give 20 mg NIFEdipine. Recheck BP in 20 minutes. 1006 (Given - Provider: Milla Davis RN) ondansetron (ZOFRAN) injection 4 mg 4 mg, IntraVENous, EVERY 6 HOURS PRN, Starting on Denisha 10/12/21 at 1323, Until Discontinued, Nausea, nausea, oxyCODONE-acetaminophen (PERCOCET) 5-325 MG per tablet 1 tablet(Linked Group 1) Mg/kg dosing is based on the oxycodone component., 1 tablet, Oral, EVERY 4 HOURS PRN, Starting on Denisha 10/12/21 at 1323, Until Discontinued, Pain Moderate (4-6), Maximum dose of acetaminophen is 4000 mg from all sources in 24 hours., 1700 (Given - Provider: Milla Davis RN) 1041 (Given - Provider: Nohemy Nuñez, SHANON)2046 (Given - Provider: Elif Prince, SHANON) oxyCODONE-acetaminophen (PERCOCET) 5-325 MG per tablet 2 tablet(Linked Group 1) Mg/kg dosing is based on the oxycodone component., 2 tablet, Oral, EVERY 4 HOURS PRN, Starting on Denisha 10/12/21 at 1323, Until Discontinued, Pain Severe (7-10), Maximum dose of acetaminophen is 4000 mg from all sources in 24 hours., 1700 (See Alternative - Provider: Milla Davis RN) 1041 (See Alternative - Provider: Nohemy Nuñez, SHANON)2046 (See Alternative - Provider: Elif Prince, RN) oxytocin (PITOCIN) 10 unit bolus from the bag(Linked Group 2) 166.7 mL (rounded from 166.6667 mL = 10 Units), IntraVENous, PRN, 1 dose, Starting on Denisha 10/12/21 at 1340, Until Discontinued, Bleeding, Post- use ONLY after delivery of baby/ excessive bleeding/ uterine atony. Bolus for bag to infuse at 909 ml/hour for 11 minutes (10 units in 167ml)., Multiphase Phase of Care oxytocin (PITOCIN) 30 units in 500 mL infusion(Linked Group 2) 87.3 omkar-units/min (87.3 mL/hr), IntraVENous, CONTINUOUS PRN, Starting on Denisha 10/12/21 at 1340, Until 10/14/21 at 1317, Bleeding, For a total of two bags Post- use ONLY after delivery of baby/ excessive bleeding/ uterine atony. Following Bolus from bag administration, reduce the rate to 87.3 mL/hr and administer remaining 20 units over 229 minutes to complete the infusion of 30 units in 500 mL. Do NOT administer more than 1 bag of pitocin without a new order from the physician., For a total of two bags, Multiphase Phase of Care 1503 (New Bag - Provider: Milla Davis RN)2136 (Stopped - Provider: Lilo Kulkarni RN) 1128 (Stopped - Provider: Leda Glez RN) sennosides-docusate sodium (SENOKOT-S) 8.6-50 MG tablet 1 tablet 1 tablet, Oral, DAILY PRN, Starting on Denisha 10/12/21 at 1323, Until Discontinued, Constipation, simethicone (MYLICON) chewable tablet 80 mg 80 mg, Oral, EVERY 6 HOURS PRN, Starting on Denisha 10/12/21 at 1323, Until Discontinued, Cramping, Flatulence, sodium chloride flush 0.9 % injection 10 mL 10 mL, IntraVENous, PRN, Starting on Denisha 10/12/21 at 1323, Until Discontinued, Line Care, After every IV line use, Linked Groups Order Group 1: oxyCODONE-acetaminophen (PERCOCET) 5-325 MG per tablet 1 tabletJump to med Mg/kg dosing is based on the oxycodone component.
1 tablet, Oral, EVERY 4 HOURS PRN, Starting on Denisha 10/12/21 at 1323, Until Discontinued, Pain Moderate (4-6)
Maximum dose of acetaminophen is 4000 mg from all sources in 24 hours.
Or oxyCODONE-acetaminophen (PERCOCET) 5-325 MG per tablet 2 tabletJump to med Mg/kg dosing is based on the oxycodone component.
2 tablet, Oral, EVERY 4 HOURS PRN, Starting on Denisha 10/12/21 at 1323, Until Discontinued, Pain Severe (7-10)
Maximum dose of acetaminophen is 4000 mg from all sources in 24 hours.
Group 2: oxytocin (PITOCIN) 30 units in 500 mL infusionJump to med 87.3 omkar-units/min (87.3 mL/hr), IntraVENous, CONTINUOUS PRN, Starting on Denisha 10/12/21 at 1340, Until 10/14/21 at 1317, Bleeding
For a total of two bags Post- use ONLY after delivery of baby/ excessive bleeding/ uterine atony. Following Bolus from bag administration, reduce the rate to 87.3 mL/hr and administer remaining 20 units over 229 minutes to complete the infusion of 30 units in 500 mL. Do NOT administer more than 1 bag of pitocin without a new order from the physician.
For a total of two bags
Multiphase Phase of Care And oxytocin (PITOCIN) 10 unit bolus from the bagJump to med 166.7 mL (rounded from 166.6667 mL = 10 Units), IntraVENous, PRN, 1 dose, Starting on Denisha 10/12/21 at 1340, Until Discontinued, Bleeding
Post- use ONLY after delivery of baby/ excessive bleeding/ uterine atony. Bolus for bag to infuse at 909 ml/hour for 11 minutes (10 units in 167ml).
Multiphase Phase of Care FOR RECORDS PERTAINING TO PATIENTS WHO ARE OR HAVE BEEN ENROLLED IN A CHEMICAL DEPENDENCY/SUBSTANCEABUSE PROGRAM, SOME INFORMATION MAY BE OMITTED. This clinical summary was aggregated from multiple sources. Caution should be exercised in using it in the provision of clinical care. This summary normalizes information from multiple sources, and as a consequence, information in this document may materially change the coding, format and clinical context of patient data. In addition, data may be omitted in some cases. CLINICAL DECISIONS SHOULD BE BASED ON THE PRIMARY CLINICAL RECORDS. [employer] [facility]. provides no warranty or guarantee of the accuracy or completeness of information in this document.
[2023-12-17 08:15] LABS: Basophils Percent Auto 0.7 % (0.2-2.0); Eosinophils Absolute Auto 0.1 10^3/uL (0.0-0.7); Eosinophils Percent Auto 1.5 % (0.9-7.0); Hematocrit 31.4 % (36.0-48.0); Hemoglobin 9.2 g/dL (12.0-16.0); Immature Granulocytes Abs Auto 0.01 10^3/uL (0.00-0.03); Immature Granulocytes Pct Auto 0.2 % (0.0-0.5); Lymphocytes Absolute Auto 2.5 10^3/uL (1.2-3.8); Lymphocytes Percent Auto 46.2 % (20.5-60.0); Mean Corpuscular HGB Conc 29.3 g/dL (29.9-35.2); Mean Corpuscular Hemoglobin 20.9 pg (26.7-34.0); Mean Corpuscular Volume 71.4 fL (81.0-99.0); Mean Platelet Volume 10.1 fL (9.5-13.5); Monocytes Absolute Auto 0.4 10^3/uL (0.3-0.8); Monocytes Percent Auto 6.6 % (1.7-12.0); Neutrophils Absolute Auto 2.4 10^3/uL (1.4-6.5); Neutrophils Percent Auto 44.8 % (43.0-75.0); Platelet Count 283 10^3/uL (150-450); Red Cell Distribution Width 17.8 % (11.0-15.0); White Blood Count 5.5 10^3/uL (4.0-11.0)
--- NOTE | 2023-12-17 08:19 | CT_ITS ---
The [address] [address] Patient Name: SOLANGE MURPHY MRN: [id number] date: 1985 Sex: F Assigned Patient Location: ED.MAIN Current Patient Location: Accession/Order Number: [id number] Exam Date: 12/17/2023 08:45 Report Date: 12/17/2023 11:02 At the request of: SOFIA FAY Procedure: CT angio head CTA HEAD WITH CONTRAST: 12/17/2023 8:45 AM EDT History: cva Comparison: None available . Correlation with neck CTA same date Contrast-enhanced helically acquired data per systemic arterial protocol. From the base data set, volumetric recons in MIP mode were generated and reviewed. 3-D images were rendered on a separate workstation. VERTEBRALS: Widely patent with left dominant over the right. BASILAR : A good sized widely patent vessel. SUPERIOR CEREBELLARS: Patent. POSTERIOR CEREBRALS: P1 and P2 segments are patent. Modest hypoplasia right P1. INTRACRANIAL ICAs: Widely patent. OPHTHALMIC ARTERIES: Patent and symmetric. ANTERIOR CEREBRALS: . A1 segments are patent and are codominant. If [employer] is present it is tiny and short. A2 segments are patent and symmetric. MIDDLE CEREBRALS: M1 segments are unremarkable. Insular loops are reasonably symmetric in caliber and in number. P-COMMS: The right is a small patent vessel. The left is not seen. OTHER: Dural sinuses appear patent. Several patent cortical veins bilaterally. Deep veins are patent CT/CT angio head IMPRESSION: 1. No acute findings. No moderate or significant narrowing of a large towards medium size intracranial artery All CT scans at this facility use dose modulation, iterative reconstruction, and/or weight based dosing when appropriate to reduce radiation dose to as low as reasonably achievable. Electronically authenticated by: AUGUSTINA RAYMOND Date: 12/17/2023 11:02
--- NOTE | 2023-12-17 08:19 | CT_ITS ---
The [address] [address] Patient Name: SOLANGE MURPHY MRN: [id number] date: 1985 Sex: F Assigned Patient Location: ER Current Patient Location: ED.MAIN Accession/Order Number: [id number] Exam Date: 12/17/2023 08:45 Report Date: 12/17/2023 10:56 At the request of: SOFIA FAY Procedure: CT angio neck CT ANGIOGRAPHY NECK: 12/17/2023 8:45 AM EDT Clinical History:cva Comparison: None available . Contrast-enhanced helically acquired data per protocol. From this dataset volumetric recons in MIP mode were generated and reviewed. 3-D images were rendered on a separate workstation. NASCET criteria were utilized. Thyroid is little greater than average in size and is fairly heterogeneous. Lingual tonsils are slightly prominent. INNOMINATE: Partially obscured by artifact from juxtaposed dense venous contrast. Grossly, the vessel is unremarkable RIGHT SUBCLAVIAN: Unremarkable RIGHT VERTEBRAL: Takes its origin the very proximal aspects of the right subclavian. It does not enter a transverse foramen until the mid cervical region. It is a medium-sized widely patent vessel LEFT SUBCLAVIAN: Proximal through mid aspects are unremarkable. Distally it is obscured by aforementioned artifact. LEFT VERTEBRAL: Takes its origin directly from the arch. It is a good sized blood vessel and is widely patent throughout its extradural course. RIGHT CAROTID SYSTEM: CCA is widely patent. 0% stenosis cervical ICA. The ECA is widely patent. LEFT CAROTID SYSTEM: CCA is somewhat obscured in the thorax by aforementioned artifact. In the cervical region is unremarkable. 0% stenosis cervical ICA. The ECA is widely patent. CT/CT angio neck IMPRESSION: 1. Aspects of the extradural cerebral vasculature and great vessels are partially obscured by artifact. However, no distinct evidence of acute process. 2. Thyroid as described. Given the multiplicity this may represent early goiter formation. If desired, follow-up thyroid ultrasound. Correlation with TFTs. 3. Lingual tonsils are mildly prominent in a nonspecific manner. All CT scans at this facility use dose modulation, iterative reconstruction, and/or weight based dosing when appropriate to reduce radiation dose to as low as reasonably achievable. Electronically authenticated by: AUGUSTINA RAYMOND Date: 12/17/2023 10:56
--- NOTE | 2023-12-17 08:19 | MR_ITS ---
The [address] [address] Patient Name: SOLANGE MURPHY MRN: [id number] date: 1985 Sex: F Assigned Patient Location: ER Current Patient Location: ER Accession/Order Number: [id number] Exam Date: 12/17/2023 09:00 Report Date: 12/17/2023 09:45 At the request of: SOFIA FAY Procedure: MR head/brain wo/w con EXAMINATION: MR head/brain wo/w con HISTORY: cva COMPARISON: No relevant comparison available. TECHNIQUE: A variety of imaging planes and parameters were utilized for visualization of suspected pathology. Images were performed without contrast. FINDINGS: Very limited exam. The procedure was terminated prematurely by the patient after diffusion imaging Diffusion imaging is normal with no restricted diffusion to suggest an infarct No ventriculomegaly or mass effect is observed MR/MR head/brain wo/w con IMPRESSION: No acute infarct Electronically authenticated by: IRINA SAGE Date: 12/17/2023 09:45
[2023-12-17 08:22] LABS: INR 1.07; Partial Thromboplastin Time 26.5 sec (22.3-36.2); Prothrombin Time 11.3 sec (9.0-11.6)
[2023-12-17] MEDS: 0.9 % SODIUM CHLORIDE 1,000 ML 1000 ML IV (08:22)
[2023-12-17 08:26] LABS: Alanine Aminotransferase 17 U/L (14-59); Albumin Globulin Ratio 0.9; Albumin Level 3.3 g/dL (3.4-5.0); Alkaline Phosphatase 79 U/L (46-116); Anion Gap 12.5; Aspartate Amino Transferase 16 U/L (15-37); BUN Creatinine Ratio 14.3; Bilirubin Total 0.6 mg/dL (0.2-1.0); Calcium 8.1 mg/dL (8.5-10.1); Chloride 105 mmol/L (98-107); Estimated GFR (African America >60 (>=60); Estimated GFR (Non-African Ame >60 (>=60); Globulin 3.6 g/dL; Glucose 94 mg/dL (74-106); Potassium 3.5 mmol/L (3.5-5.1); Sodium 141 mmol/L (136-145); Total Protein 6.9 g/dL (6.4-8.2); Troponin I High Sensitivity 6.3 pg/mL (4.0-51.3)
[2023-12-17] MEDS: ASPIRIN 325 MG TABLET PO (08:30)
[2023-12-17] MEDS: 0.9 % SODIUM CHLORIDE 1,000 ML 125 ML IV (10:14)
--- NOTE | 2023-12-17 10:51 | ED_ITS ---
HPI HPI - General Adult General Chief complaint: Neuro Symptoms/Deficit Stated complaint: EXTREMITY WEAKNESS RIGHT SIDE/CVA SYMPTOMS Time Seen by Provider: 12/17/23 07:51 Source: patient Mode of arrival: walk-in Limitations: no limitations History of Present Illness HPI narrative: Patient is a 38-year-old female who is presenting to the ER with strokelike signs and symptoms that started 7:20 AM this morning.Patient was carrying her shoes,Patient dropped issues out of her right hand. Patient states that she became weak and lost function to the right hand.Patient then noticed her right arm was weak.Patient then went to the bathroom to look at her self talk, and she noted that she was having a hard time speaking. Patient then face timed her mother.Patient's mother is a nurse at Dr. Page's office.Patient's mother stated that when she was looking at the patient, she had facial droop, slurred speech, some mild expressive aphasia, and also noted the right weak arm. When patient arrived to the ER, her speech had cleared.She did not have a facial droop, no slurred speech, no expressive aphasia.Patient still had some right arm weakness and stated that her right arm did not feel normal. However the right arm had improved, but it still slightly not back to normal. Patient also stated in the past 2 to 3 weeks she has been noticing that her watch has been saying that herHeart rate has been in the 160s and 170s intermittently.This has been going on for the past 2 to 3 weeks. Patient's brother has atrial fibrillation, patient is not known to have A-fib.Patient has no history of SVT. No recent traveling.Patient only takes Wellbutrin. No significant stress or anxiety this morning.Patient did not have any type of headache or migraine this morning. No chest pain or shortness of breath no nausea vomiting, No other acute complaints at this time. All systems are negative except as noted/marked. All systems reviewed and otherwise negative. Nurses note and vital signs reviewed and patient is not hypoxic. General: The patient appears well and in no apparent distress. Patient is resting comfortably on cart. Patient is not toxic, lethargic, or listless Skin: Warm, dry, no pallor noted. There is no rash noted. No petechiae, purpura. Head: Normocephalic, atraumatic; No carotid bruits bilateral Eye: Normal conjunctiva, no drainage, EOMI. PERRL Ears, Nose, Mouth, and Throat: oral mucosa is moist. Nares patent. Mouth without vesicles. Cardiovascular: Regular Rate and Rhythm, no murmur, gallop, rub Respiratory: Patient is in no distress, no accessory muscle use, lungs are clear to auscultation, no wheezing, rales or rhonchi Back: non-tender, no CVA tenderness bilaterally to percussion. No CT LS midline pain GI: no tenderness to palpation, no masses appreciated. No rebound, guarding, or rigidity noted. No distention Musculoskeletal: Patient has full range of motion of all of the extremities, no motor, sensory, or focal neurological deficits Neurological: A&O x4, normal speech, NIH 1 For very minimal pronator drift of the right arm. Patient states that her right arm still does not feel completely normal Psychiatric: Cooperative Related Data Home Medications ?Medication ?Instructions ?Recorded ?Confirmed bupropion HCl 100 mg tablet 100 mg PO TID 12/17/23 12/17/23 Allergies Allergy/AdvReac Type Severity Reaction Status Date / Time Penicillins Allergy Mild Rash Verified 12/17/23 07:46 Opioid HPI Opioid Management Most Recent Opioid Data: Last Pain Scale 0 12/17/23 19:35 Last Pain Assessment 12/17/23 19:35 Last ORT Total Score 0 12/17/23 12:36 Last ORT Risk Category Low Risk 12/17/23 12:36 PFSH PFS Medical History (Updated 12/17/23 @ 15:40 by Alka Lo NP) Anxiety ?F41.9 - Anxiety disorder, unspecified (ICD-10) Surgical History (Updated 12/17/23 @ 12:55 by Emilie Wilburn LPN) Tubal ligation status ?Z98.51 - Tubal ligation status (ICD-10) Gastric bypass status for obesity ?Z98.84 - Bariatric surgery status (ICD-10) Family History (Updated 12/17/23 @ 12:51 by Emilie Wilburn LPN) Mother Family history of diabetes mellitus Father Family history of diabetes mellitus Family history of hypertension Social History (Updated 12/17/23 @ 12:52 by Emilie Wilburn LPN) Smoking status: Current every day smoker Do you use any of these nicotine containing products: smokeless tobacco Second hand tobacco smoke exposure: No Non-prescribed substance use: denies use Known occupational exposures/hazards: No Highest level of school completed/degree received: Master's degree Do you want help with school or training: No Are you now , , , , never or living with a partner: In a typical week, how many times do you talk on the telephone with family, friends, or neighbors: 3 or more times per week How often do you get together with friends or relatives: 3 or more times per week How often do you attend yazidism or yazidism services: 4 or more times per year Do you belong to any clubs or organizations such as yazidism groups unions, [employer] or athletic groups, or school groups: no Total score: 3 Score interpretation: A score of greater than or equal to 2 indicates the low est level of social isolation. Little interest or pleasure in doing things: not at all Feeling down, depressed, or hopeless: not at all Feel stressed/tense/nervous/anxious/difficulty sleeping: not at all Due to disability, difficulty making decisions: No Do you think of yourself as: straight/heterosexual Gender Identity: female Exam Constitutional Vital Signs, click to edit/add: Last Vital Signs Temp 98.1 F 12/17/23 19:31 Pulse 98 H 12/17/23 19:31 Resp 18 12/17/23 19:31 BP 131/79 12/17/23 19:31 Pulse Ox 98 12/17/23 19:31 O2 Del Method Room Air 12/17/23 19:31 Course Vital Signs Vital signs: Vital Signs Temperature 97.9 F 12/17/23 07:46 Pulse Rate 72 12/17/23 07:46 Respiratory Rate 16 12/17/23 07:46 Blood Pressure 140/88 12/17/23 07:46 Pulse Oximetry 100 12/17/23 07:46 Oxygen Delivery Method Room Air 12/17/23 07:46 Temperature 98.1 F 12/17/23 19:31 Pulse Rate 98 H 12/17/23 19:31 Respiratory Rate 18 12/17/23 19:31 Blood Pressure 131/79 12/17/23 19:31 Pulse Oximetry 98 12/17/23 19:31 Oxygen Delivery Method Room Air 12/17/23 19:31 Medical Decision Making MDM Narrative Medical decision making narrative: When patient arrived, she no longer had slurred speech, dysarthria, aphasia, and her right arm was almost back to baseline. Stroke alert was called secondary to still having symptoms to the right arm, symptoms started at 7:20 AM. I did speak to Dr. Smith. He has a stroke neurologist From [facility]. He recommended to order CT of the head neck, also order MRI of the brain with and without contrast. I then spoke to Dr. Fatima, the radiologist from [facility]. He was questioning the need for the IV contrast with the MRI, in light that were just performing CTA of the head and neck. I told him I will call the stroke neurologist again. 0835 I spoke to the stroke neurologist again, Dr. Smith. He stated that he wants the MRI with and without contrast secondary to having the IV contrast to rule out any type of demyelinating disease. He is aware of the IV Dye load of the CT of the head and neck along with MRI with and without contrast. He stated that ordered the test because this is what he needs To evaluate the patient. Dr. Fatima was then given this information from the stroke neurologist and he agreed with the testing to be performed. Patient then was having an MRI, during the exam she stated that she could not complete the test secondary to chest pain, tightness, difficulty breathing.Patient says that she is not normally claustrophobic.Patient was brought back to the ER Without communication to me what had occurred. After I spoke to the patient, she is agreeing to perform the MRI and will be given a dose of Ativan prior to the MRI being performed to help prevent any type of chest pain, shortness of breath, anxiety so that we can perform the best pictures possible. I did speak to Melchor Garcia About the process of having MRI performed, he is a director ofRadiology department. He stated patient will be able to repeat the MRI at 11 AM, and is aware of giving patient IV Ativan. 0920 Patient's symptoms have completely resolved. Patient no longer has pronator drift to the right arm, no weakness, no funny feeling to arm, and she has had no return of speech slurred speech or aphasia. Patient did have the MRI performed, then patient went to the inpatient floor. Patient was admitted by Dr. Itz Smith Is the stroke neurologist who I have been speaking to, telemetry consult for stroke has been placed as well. Critical care time 35 minutes exclusive from separate billable procedures that were performed. The following was considered in the determination of critical care but not limited to the level of medical decision making, intensive cardiac and/or respiratory monitoring, frequent vital sign monitoring, evaluation of laboratory studies, evaluation of radiographic studies, oxygen monitoring, and constant monitoring and speaking to family at bedside Lab Data Labs: Lab Results 12/17/23 12/17/23 Range/Units 07:52 07:53 WBC 5.5 (4.0-11.0) 10^3/uL RBC 4.40 (4.20-5.40) 10^6/uL Hgb 9.2 L (12.0-16.0) g/dL Hct 31.4 L (36.0-48.0) % MCV 71.4 L (81.0-99.0) fL MCH 20.9 L (26.7-34.0) pg MCHC 29.3 L (29.9-35.2) g/dL RDW 17.8 H (11.0-15.0) % Plt Count 283 (150-450) 10^3/uL MPV 10.1 (9.5-13.5) fL Neut % (Auto) 44.8 (43.0-75.0) % Lymph % (Auto) 46.2 (20.5-60.0) % Perry % (Auto) 6.6 (1.7-12.0) % Eos % (Auto) 1.5 (0.9-7.0) % Baso % (Auto) 0.7 (0.2-2.0) % Neut # (Auto) 2.4 (1.4-6.5) 10^3/uL Lymph # (Auto) 2.5 (1.2-3.8) 10^3/uL Perry # (Auto) 0.4 (0.3-0.8) 10^3/uL Eos # (Auto) 0.1 (0.0-0.7) 10^3/uL Baso # (Auto) 0.0 (0.0-0.1) 10^3/uL Abs Immat Gran (auto) 0.01 (0.00-0.03) 10^3/uL Imm/Tot Granulo (auto) 0.2 (0.0-0.5) % Retic Count (auto) 0.95 (0.60-3.10) % PT 11.3 (9.0-11.6) sec INR 1.07 APTT 26.5 (22.3-36.2) sec Sodium 141 (136-145) mmol/L Potassium 3.5 (3.5-5.1) mmol/L Chloride 105 (98-107) mmol/L Carbon Dioxide 27.0 (21.0-32.0) mmol/L Anion Gap 12.5 BUN 10.0 (7.0-18.0) mg/dL Creatinine 0.70 (0.55-1.02) mg/dL Est GFR ( Amer) >60 (>=60) Est GFR (Non-Af Amer) >60 (>=60) BUN/Creatinine Ratio 14.3 Glucose 94 (74-106) mg/dL Estimat Average Glucose 114 mg/dL Hemoglobin A1c 5.6 (4.5-6.2) % Calcium 8.1 L (8.5-10.1) mg/dL Magnesium 2.4 (1.8-2.4) mg/dL Iron 16.0 L (50.0-170.0) ug/dL TIBC 443.0 (250.0-450.0) ug/dL % Saturation 3.6 % Ferritin 6.0 L (8.0-252.0) ng/mL Total Bilirubin 0.6 (0.2-1.0) mg/dL AST 16 (15-37) U/L ALT 17 (14-59) U/L Alkaline Phosphatase 79 (46-116) U/L Troponin I High Sens 6.3 (4.0-51.3) pg/mL Total Protein 6.9 (6.4-8.2) g/dL Albumin 3.3 L (3.4-5.0) g/dL Globulin 3.6 g/dL Albumin/Globulin Ratio 0.9 Triglycerides 53 (<=150) mg/dL Cholesterol 125 (<=200) mg/dL LDL Cholesterol, Calc 64.4 mg/dL VLDL Cholesterol 10.6 mg/dL HDL Cholesterol 50 (40-60) mg/dL Cholesterol/HDL Ratio 2.5 Vitamin B12 209.0 (193.0-986.0) pg/mL Folate 12.40 (8.60-58.90) ng/mL TSH & Free T4 Interp 1.336 (0.358-3.740) uIU/mL POC Glucose 95 (74-106) mg/dL ECG Data Attestation: I personally reviewed and interpreted this ECG as follows: (EKG interpretation artifact noted, regular rhythm, normal axis deviation. QTc of 413. No ST elevation. Rate 71. EKG reading atrial rhythm.) Discharge Plan Discharge Chief Complaint: Neuro Symptoms/Deficit Clinical Impression: TIA (transient ischemic attack) Anemia Qualifiers: Anemia type: unspecified type Qualified Code(s): D64.9 - Anemia, unspecified Patient Disposition: Admitted as Observation Time of Disposition Decision: 10:36 Condition: Fair Discharge Date/Time: 12/17/23 11:40
--- NOTE | 2023-12-17 10:58 | CA_ITS ---
Patient Name: SOLANGE MURPHY MR#: [id number] : 1985 Exam Date: 12/18/2023 Ordering Doctor: RICKY HARTMAN ECHOCARDIOGRAM REPORT PROCEDURE: CA ECHO DOPPLER COMPLETE INDICATIONS: TIA, Palpitations, Right sided weakness COMPARISON: None. DESCRIPTION: COMPLETE ECHOCARDIOGRAM Real-time transthoracic echocardiography with 2D, M-mode, spectral and color flow Doppler performed. QUALITY: Technical quality was good. LEFT VENTRICLE: Normal chamber size. Normal left ventricular wall thickness. Global left ventricular systolic function is normal. LV EF: Estimated left ventricular ejection fraction is 65% DIASTOLIC: Normal diastolic function. ATRIAL SEPTUM: Agitated saline contrast reveals an intra-cardiac shunt at rest and with the Valsalva maneuver. LEFT ATRIUM: Mild dilatation. RIGHT ATRIUM: Mild dilatation. RIGHT VENTRICLE: Normal chamber size. Normal right ventricular systolic function. TRICUSPID VALVE: Normal mobility and thickness. No stenosis with trivial regurgitation. No evidence of pulmonary hypertension. RVSP 21 mmHg MITRAL VALVE: Normal mobility and thickness. No evidence of mitral valve stenosis. There is no mitral annular calcification. Trivial mitral regurgitation. AORTIC VALVE: Normal trileaflet appearance. No visible sclerosis. Normal leaflet mobility. No evidence of aortic valve stenosis. No aortic regurgitation. AORTIC ROOT: Normal diameter and appearance. PULMONIC VALVE: Normal thickness and mobility. No stenosis. No regurgitation. PERICARDIUM: No evidence of pericardial effusion. IVC: Collapses with inspirations. Normal size PLEURA: CONCLUSION: 1. Normal ventricular size and systolic function. Estimated LVEF is 65%. 2. Normal diastolic function. 3. No significant valvular dysfunction. 4. Normal right-sided pressures. 5. Agitated saline contrast injections show evidence of significant [id number] shunt at the interatrial septal level at rest and with the Valsalva maneuver. This is consistent with either atrial septal defect or a large patent foramen ovale. Further characterization by a transesophageal echocardiogram is recommended. Adult Echocardiography Procedure Report Left Ventricle LVEDD (3.7 - 5.6 cm): 4.34 cm LVESD (2.2 - 4.0 cm): 2.97 cm LVIVS thickness (0.6 - 1.2 cm): 1.08 cm LVPW thickness (0.5 - 1.0 cm): 1.06 cm e': 0.16 m/s E - e': 4.96 LVOT Max Gradient: 4.48 mm[Hg] LVOT Area (cm2): 1.06 m/s Peak Velocity (LVOT): 1.06 m/s Mean Velocity (LVOT): 0.79 m/s LVOT Diameter 2.03 cm Left Ventricular Ejection Fraction: 65 % Left Atrium LA Volume Index (2D A2C): 42.92 ml/m2 Left Atrium Systolic Dimension: 3.95 cm Mitral Valve MV E to A Ratio: 1.53 Mitral Valve A-Wave Peak Velocity: 0.53 m/s Mitral Valve E-Wave Peak Velocity: 0.81 m/s Right Ventricle RV Internal Diastolic Dimension: 3.26 cm Aorta AO Root Diam: 3.03 cm Ascending Ao Diam: 2.77 cm Aortic Valve AoV Area (Peak Mario): 2.91 cm2, 2.91 cm2 AoV Area (VTI): 2.80 cm2, 2.80 cm2 Peak Velocity(Antegrade Flow): 1.18 m/s Peak Gradient(Antegrade Flow): 5.59 mm[Hg] Mean Velocity(Antegrade Flow): 0.87 m/s Mean Gradient(Antegrade Flow): 3.41 mm[Hg] Velocity Time Integral: 27.18 cm Tricuspid Valve Peak Velocity (Regurgitant Flow): 2.11 m/s, 1.99 m/s, 2.13 m/s Pulmonic Valve Mean Gradient: 1.84 mm[Hg] Mean Velocity: 0.65 m/s Peak Velocity: 0.84 m/s, 0.90 m/s Peak Gradient: 2.81 mm[Hg], 3.21 mm[Hg] Right Atrium Right Atrium Systolic Pressure: 48.64 ml, 48.64 ml Dictated by: Laron Palomino M.D. on 12/18/2023 at 18:11 Approved by: Laron Palomino M.D. on 12/18/2023 at 18:24
[2023-12-17] MEDS: LORAZEPAM 2 MG/ML VIAL IV (11:25)
[2023-12-17 14:01] LABS: Estimated Average Glucose 114 mg/dL; Glycohemoglobin A1C 5.6 % (4.5-6.2)
[2023-12-17 14:02] LABS: Chol HDL Ratio 2.5; Cholesterol 125 mg/dL (<=200); HDL Cholesterol 50 mg/dL (40-60); LDL Cholesterol Calculated 64.4 mg/dL; Triglycerides 53 mg/dL (<=150); VLDL CHOLESTEROL 10.6 mg/dL
--- NOTE | 2023-12-17 14:08 | P.HP_ITS ---
<Statement entered by Philipp Moblye MD - 12/17/23 18:42> Patient not personally seen but chart reviewed, seen by [employer]. Presented with sudden onset of right arm weakness and speech deficit. Symptoms resolved by time in ER. Imaging normal. Reports palpitations and echo ordered. Monitor with telemetry. Check labs. Diagnosis: 1. TIA 2. Palpitations 3. Anemia 4. Anxiety. HPI H&P: HPI History of Present Illness Chief complaint: EXTREMITY WEAKNESS RIGHT SIDE/CVA SYMPTOMS/ TIA Narrative: 12/17/23 1030 This is a 38-year-old female patient with a relatively benign past medical history except for anxiety; who reported to the ED this morning complaining of acute onset of right upper extremity plegia, dysarthria, and right facial droop. The patient reports she was picking up the living room this morning prior to her children getting up for breakfast. She denies any acute stressors and states her morning was progressing as usual. She suddenly developed acute paralysis of the right arm and she dropped the things she was holding in that her arm. She was unable to move the arm and it was completely flaccid. She attempted to telephone her mother to ask for assistance and her mother stated that she had a right facial droop and it was difficult to understand her speech. The patient appears to describe both mild expressive aphasia and dysarthria at this time. She was taken to the ED by family for further evaluation. Workup in the ED was relatively benign as the patient's symptoms had essentially resolved by the time of her arrival. A CT of the head was obtained and this was unremarkable with no acute intracranial abnormality noted. Chest x-ray was also unremarkable. Telestroke services were consulted by the ED provider and they requested an MRI of the brain with and without contrast. The MRI was attempted but was interrupted due to the patient developing a panic attack during the study. After receiving sedation in the ED she was able to return and complete the MRI study with contrast. No acute infarct or acute abnormalities were noted on this study. A CTA of the head and neck were also obtained and other than a slightly enlarged thyroid and tonsils, no other acute findings were noted. As the patient also reported recent palpitations and alert from her Fitbit stating she was in A-fib, the patient is being placed in observation under the hospitalist service for further evaluation and consult with telestroke services. (The pt reports drinking an excessive amount of coffee about 10 days ago following which she felt palpitations and this is when her FitBit alarmed that it detected A-fib .) At the time of my exam the patient is resting comfortably in bed. She reports that all of her symptoms have completely resolved. Although the pt admits to a history of panic attacks in the past, her symptoms with these always mimic cardiac pain and she can easily identify panic as the source of her symptoms. She also notes identifiable stressors always precede her panic attacks in the past. She denies any known stressors this morning and does not associate her symptoms today with panic at all. My neurologic exam is unremarkable. We will obtain a 2D echo to assess for possible cardiac etiologies of neurologic symptoms. An A1c and lipid panel have been added onto her ED labs. As the patient is also anemic we have initiated iron studies and stool for occult blood test. The patient will be seen in consult by the telestroke service either this afternoon or tomorrow morning. Opioid HPI Opioid Management Most Recent Opioid Data: Last Pain Assessment 12/17/23 15:39 Last ORT Total Score 0 12/17/23 12:36 Last ORT Risk Category Low Risk 12/17/23 12:36 Review of Systems ROS Status of ROS 10 or more systems reviewed and unremark able except as noted in history and below PFSH PFSH Medical History (Updated 12/17/23 @ 15:40 by Alka Lo NP) Anxiety ?F41.9 - Anxiety disorder, unspecified (ICD-10) Surgical History (Updated 12/17/23 @ 12:55 by Emilie Wilburn LPN) Tubal ligation status ?Z98.51 - Tubal ligation status (ICD-10) Gastric bypass status for obesity ?Z98.84 - Bariatric surgery status (ICD-10) Family History (Updated 12/17/23 @ 12:51 by Emilie Wilburn LPN) Mother Family history of diabetes mellitus Father Family history of diabetes mellitus Family history of hypertension Social History (Updated 12/17/23 @ 12:52 by Emilie Wilburn LPN) Smoking status: Current every day smoker Do you use any of these nicotine containing products: smokeless tobacco Second hand tobacco smoke exposure: No Non-prescribed substance use: denies use Known occupational exposures/hazards: No Highest level of school completed/degree received: Master's degree Do you want help with school or training: No Are you now , , , , never or living with a partner: In a typical week, how many times do you talk on the telephone with family, friends, or neighbors: 3 or more times per week How often do you get together with friends or relatives: 3 or more times per week How often do you attend mosque or holiness services: 4 or more times per year Do you belong to any clubs or organizations such as mosque groups unions, [employer] or athletic groups, or school groups: no Total score: 3 Score interpretation: A score of greater than or equal to 2 indicates the lowest level of social isolation. Little interest or pleasure in doing things: not at all Feeling down, depressed, or hopeless: not at all Feel stressed/tense/nervous/anxious/difficulty sleeping: not at all Due to disability, difficulty making decisions: No Do you think of yourself as: straight/heterosexual Gender Identity: female Meds Home Medications and Allergies Home Medications ?Medication ?Instructions ?Recorded ?Confirmed ?Type bupropion HCl 100 mg tablet 100 mg PO TID 12/17/23 12/17/23 History Allergies Allergy/AdvReac Type Severity Reaction Status Date / Time Penicillins Allergy Mild Rash Verified 12/17/23 07:46 Exam Constitutional Vital Signs, click to edit/add: Last Vital Signs Temp 97.9 F 12/17/23 13:14 Pulse 68 12/17/23 14:04 Resp 16 12/17/23 13:14 BP 122/79 12/17/23 13:14 Pulse Ox 97 12/17/23 13:14 O2 Del Method Room Air 12/17/23 13:14 Common normals: no apparent distress, oriented x3, alert and well nourished General appearance: cooperative Orientation/consciousness: Yes awake HENMT Common normals: normocephalic, head/scalp atraumatic, hearing grossly normal bilaterally, external nose normal and moist oral mucous membranes Eye Common normals: PERRL, EOMs intact bilaterally, conjunctivae normal and no scleral icterus Alignment: alignment normal Eyelid: eyelids normal Neck & C-Spine Common normals: full ROM, supple and no JVD Chest Common normals: inspection of chest normal Chest: symmetrical chest wall rise Respiratory Common normals: normal respiratory effort, no retractions, no use of accessory muscles and clear to auscultation bilaterally Effort & inspection: able to speak in complete sentences Cardio Common normals: no JVD, regular rate, regular rhythm, S1 normal heart sound, S2 normal heart sound, no gallops, no clicks, no murmurs, no rub and peripheral pulses 2+ throughout GI Common normals: Normal to inspection, nondistended, normoactive bowel sounds present, soft to palpation, non-tender, no hepatosplenomegaly, no masses and no bruits Bladder/kidney exam: bladder normal to palpation Back & Pelvis Common normals: thoracic and lumbar spine normal to inspection Extremity Common normals: normal capillary refill and no pedal edema General: normal exam except as noted; no clubbing and no cyanosis Neuro [place] Coma Scale: GCS not evaluated Common normals: CN's II-XII intact bilaterally, moves all extremities, no focal motor deficits and no sensory deficits noted Speech: speech normal Motor exam: strength 5/5 throughout Psych Common normals: mental status grossly normal, thought process normal, affect no rmal and activity/motor behavior normal Thought process: normal thought process Results Labs Labs: Short CBC 12/17/23 Range/Units 07:53 WBC 5.5 (4.0-11.0) 10^3/uL Hgb 9.2 L (12.0-16.0) g/dL Hct 31.4 L (36.0-48.0) % Plt Count 283 (150-450) 10^3/uL BMP 12/17/23 07:53 Sodium 141 Potassium 3.5 Chloride 105 Carbon Dioxide 27.0 BUN 10.0 Creatinine 0.70 Glucose 94 Calcium 8.1 L Liver Function 12/17/23 Range/Units 07:53 Total Bilirubin 0.6 (0.2-1.0) mg/dL AST 16 (15-37) U/L ALT 17 (14-59) U/L Alkaline Phosphatase 79 (46-116) U/L Albumin 3.3 L (3.4-5.0) g/dL Pulse Oximetry Attestation: I have reviewed the pertinent pulse oximetry results. Imaging Chest x-ray: Attestation: I have reviewed the pertinent imaging results. Radiologist's impression: IMPRESSION: No acute cardiopulmonary process CT scan - head: Attestation: I have reviewed the pertinent imaging results. Radiologist's impression: IMPRESSION: No acute intracranial abnormality MRI - head: Attestation: I have reviewed the pertinent imaging results. Radiologist's impression: ADDENDUM [facility] [place] [id number] Patient Name: SOLANGE MURPHY MRN: [id number] date: 1985 Sex: F Assigned Patient Location: ER Current Patient Location: [place] Accession/Order Number: [id number] Exam Date: 12/17/2023 09:00 Report Date: 12/17/2023 13:18 At the request of: SOFIA FAY Procedure: MR head/brain wo/w con Begin Addendum #1 The patient was sedated and returned for repeat imaging including pre and postcontrast images. EXAMINATION: MR head/brain wo/w con HISTORY: cva COMPARISON: No relevant comparison available. TECHNIQUE: A variety of imaging planes and parameters were utilized for visualization of suspected pathology. Images were performed without contrast. FINDINGS: CEREBRUM: No edema, hemorrhage, mass, acute infarction, or inappropriate atrophy. CEREBELLUM: No edema, hemorrhage, mass, acute infarction, or inappropriate atrophy. BRAINSTEM: No edema, hemorrhage, mass, acute infarction, or inappropriate atrophy. CSF SPACES: Ventricles, cisterns, and sulci are appropriate for age. No hydrocephalus, subarachnoid hemorrhage, or mass. SKULL: No mass or other significant visible lesion. SINUSES: Limited views demonstrate no significant mucosal thickening or fluid. ORBITS: Limited views are unremarkable. OTHER: Negative. Addendum Dictated By: Morro Fatima M.D. Addendum Signed By: Addendum Cosigned By: DD/ /31/1318 TD/TT: / ADDENDUM MR/MR head/brain wo/w con IMPRESSION: Normal examination. Original Report EXAMINATION: MR head/brain wo/w con HISTORY: cva COMPARISON: No relevant comparison available. TECHNIQUE: A variety of imaging planes and parameters were utilized for visualization of suspected pathology. Images were performed without contrast. FINDINGS: Very limited exam. The procedure was terminated prematurely by the patient after diffusion imaging Diffusion imaging is normal with no restricted diffusion to suggest an infarct No ventriculomegaly or mass effect is observed IMPRESSION: No acute infarct CTA Head: Attestation: I have reviewed the pertinent imaging results. Radiologist's impression: IMPRESSION: 1. No acute findings. No moderate or significant narrowing of a large towards medium size intracranial artery All CT scans at this facility use dose modulation, iterative reconstruction, and/or weight based dosing when appropriate to reduce radiation dose to as low as reasonably achievable. CTA Neck: Attestation: I have reviewed the pertinent imaging results. Radiologist's impression: IMPRESSION: 1. Aspects of the extradural cerebral vasculature and great vessels are partially obscured by artifact. However, no distinct evidence of acute process. 2. Thyroid as described. Given the multiplicity this may represent early goiter formation. If desired, follow-up thyroid ultrasound. Correlation with TFTs. 3. Lingual tonsils are mildly prominent in a nonspecific manner. All CT scans at this facility use dose modulation, iterative reconstruction, and/or weight based dosing when appropriate to reduce radiation dose to as low as reasonably achievable. Assessment and Plan Assessment and Plan (1) TIA (transient ischemic attack): Assessment and Plan: Acute * Adm observation * Abrupt onset of R side sx about 0720 this AM. resolved by 0745 about the time of arrival to the ED * Suspected TIA, but other etiologies still to be ruled out * CT, MRI, and CTA imaging of the head/neck are all negative for acute findings * Obtain 2D Echo study to r/o cardiac etiology * Neuro checks q4h, NIHSS prn * Telestroke consult - we appreciate their assistance with this pt's care * CBC, CMP daily to monitor for medical abnormalities (2) Heart palpitations: Assessment and Plan: Acute * Onset 10 days ago and isolated to an episode of excessive caffeine intake - no further c/o palpitations since that time * Check TSH w/ FT4 reflex * Tele monitoring (3) Anemia: Assessment and Plan: Chronic * Hgb 9.2 in the ED * No c/o active bleeding, not on anticoagulation * Check Iron studies, B12, Folate * Check stool for occult blood * Pt is asymptomatic Qualifiers: Anemia type: unspecified type Qualified Code(s): D64.9 - Anemia, unspecified (4) Anxiety: Assessment and Plan: Chronic * Continue home Wellbutrin * Xanax PRN during hospitalization for possible recurrent panic attacks
--- NOTE | 2023-12-17 14:13 | ECG_ITS ---
[facility] Test Date: 2023-12-17 Pat Name: SOLANGE MURPHY Department: Room: Gender: Female Forming Department End Finder: : 1985 Requested By: NELLIE MCQUEEN Order Number: [id number] Reading MD: NELLIE MCQUEEN Measurements Intervals [place] Rate: 73 P: 56 NE: 178 QRS: 29 QRSD: 91 T: 19 QT: 402 QTc: 445 Interpretive Statements SINUS RHYTHM Compared to ECG 12/17/2023 07:49:35 No significant changes Electronically Signed On 12-17-2023 21:10:27 EDT by NELLIE MCQUEEN
[2023-12-17 14:25] LABS: Reticulocyte Pct Auto 0.95 % (0.60-3.10)
[2023-12-17 14:38] LABS: Percent Iron Saturation 3.6 %
[2023-12-17 14:56] LABS: Magnesium 2.4 mg/dL (1.8-2.4); TSH W/ REFLEX FT4 1.336 uIU/mL (0.358-3.740)
[2023-12-17] MEDS: ENOXAPARIN SODIUM 40 MG/0.4 ML SYRINGE SUBQ (15:36)
[2023-12-17] MEDS: BUPROPION HCL 100 MG 100 EACH PO (21:06)
[2023-12-18] VITALS (9 sets, daily range): BP systolic 105–113; BP diastolic 65–74; PULSE 64–88; TEMP 36.5–36.7; O2SAT 98
[2023-12-18 05:14] LABS: Basophils Percent Auto 0.7 % (0.2-2.0); Eosinophils Absolute Auto 0.1 10^3/uL (0.0-0.7); Eosinophils Percent Auto 1.5 % (0.9-7.0); Hematocrit 27.9 % (36.0-48.0); Hemoglobin 8.2 g/dL (12.0-16.0); Immature Granulocytes Abs Auto 0.01 10^3/uL (0.00-0.03); Immature Granulocytes Pct Auto 0.2 % (0.0-0.5); Lymphocytes Absolute Auto 2.4 10^3/uL (1.2-3.8); Lymphocytes Percent Auto 41.3 % (20.5-60.0); Mean Corpuscular HGB Conc 29.4 g/dL (29.9-35.2); Mean Corpuscular Volume 71.5 fL (81.0-99.0); Mean Platelet Volume 10.4 fL (9.5-13.5); Monocytes Absolute Auto 0.4 10^3/uL (0.3-0.8); Monocytes Percent Auto 6.6 % (1.7-12.0); Neutrophils Absolute Auto 2.9 10^3/uL (1.4-6.5); Neutrophils Percent Auto 49.7 % (43.0-75.0); Platelet Count 247 10^3/uL (150-450); White Blood Count 5.9 10^3/uL (4.0-11.0)
[2023-12-18 05:37] LABS: Alanine Aminotransferase 14 U/L (14-59); Albumin Globulin Ratio 0.9; Albumin Level 2.8 g/dL (3.4-5.0); Alkaline Phosphatase 67 U/L (46-116); Aspartate Amino Transferase 8 U/L (15-37); Bilirubin Total 0.4 mg/dL (0.2-1.0); Calcium 7.8 mg/dL (8.5-10.1); Carbon Dioxide 25.7 mmol/L (21.0-32.0); Chloride 108 mmol/L (98-107); Estimated GFR (African America >60 (>=60); Estimated GFR (Non-African Ame >60 (>=60); Globulin 3.1 g/dL; Glucose 75 mg/dL (74-106); Potassium 3.7 mmol/L (3.5-5.1); Sodium 139 mmol/L (136-145); Total Protein 5.9 g/dL (6.4-8.2)
[2023-12-18] MEDS: IRON SUCROSE COMPLEX 200 MG in 0.9 % SODIUM CHLORIDE 100 ML 220 MG IV (09:20)
[2023-12-18] MEDS: ASPIRIN 81 MG TAB.CHEW PO (09:20)
--- NOTE | 2023-12-18 10:29 | US_ITS ---
[address] [address] Patient Name: SOLANGE MURPHY MRN: [id number] date: 1985 Sex: F Assigned Patient Location: MS Current Patient Location: [place] Accession/Order Number: [id number] Exam Date: 12/18/2023 10:45 Report Date: 12/18/2023 11:32 At the request of: RICKY HARTMAN Procedure: US venous doppler LE BI EXAM: US venous doppler LE BI HISTORY: Patent foramen ovale, rule out DVT COMPARISON: None. TECHNIQUE: Grayscale, color and Doppler FINDINGS: Region: Bilateral legs Thrombus: None Flow: Normal Compressibility: Normal Augmentation: Normal US/US venous doppler LE BI IMPRESSION: No deep or superficial vein thrombus identified in the legs Electronically authenticated by: IRINA SAGE Date: 12/18/2023 11:32
--- NOTE | 2023-12-18 11:43 | P.DS_ITS ---
<Statement entered by Philipp Mobley MD - 12/18/23 18:16> Patient seen and examined, agree with assessment and plan below. Echo showed PFO and discussed with neurology. Recommend discharge on aspirin and statin. Gave dose IV iron and will start supplement. Need to follow with atm manager for menorrhagia. Follow with cardiology for PFO. Neurology will mail heart monitor. Diagnosis: 1. TIA 2. PFO 3. Palpitations 4. Anemia 5. Menorrhagia 6.Anxiety. DS: Providers Provider Date of admission: 12/17/23 11:40 Primary care physician: Edward Page DO Consults: 12/17/23 08:30 Consult to Telestroke Routine Reason for consultation: cva Discharging clinician: Alka Lo DS: Diagnosis Discharge Diagnosis (1) TIA (transient ischemic attack): (2) PFO (patent foramen ovale): (3) Heart palpitations: (4) Anemia: Qualifiers: Anemia type: unspecified type Qualified Code(s): D64.9 - Anemia, unspecified (5) Anxiety: DS: Summary Hospital Course Hospital Course: The patient was admitted after suffering a suspected TIA at home that had resolved by the time of her arrival in the ED. She reported abrupt onset of completely flaccid right upper extremity, right facial droop, and expressive aphasia and dysarthria. CT and MRI imaging of the brain were all negative for acute ischemic changes. The patient was seen in consult by the telestroke service and they clinically suspected TIA. Lipid panel was within normal limits and an A1c was negative for diabetes. A 2D echo was obtained and although cardiology interpretation is still pending at the time of discharge, preliminary interpretation noted PFO/ASD. She was monitored with telemetry and we did not find any evidence of arrhythmia during her stay. A venous Doppler was obtained to rule out DVTs in setting of PFO and this was negative. Per neurology recommendations, the patient was discharged home on a low-dose aspirin daily and a low-dose statin. The neurology group will mail a 30-day Holter monitor to the patient and they will follow-up with her in 1 month. An appointment with cardiology was also arranged due to the presence of PFO to consider a closure procedure. In addition, the patient was found to be anemic. She has a history of menorrhagia but had stopped taking her home iron supplementation due to constipation side effect. Iron studies revealed significant iron deficiency. She was given 1 dose of IV Venofer and discharged home on ferrous sulfate supplementation. The patient was in stable condition at the time of discharge and she should follow-up with her PCP within 5 to 7 days. Time Spent with Patient Time attestation: Total time spent providing and/or coordinating discharge services: Time spent: greater than 30 minutes Specific discharge activities: Physical exam, discussion of discharge plan, questions answered. Quality: Stroke Onset of Symptoms Date: 12/17/23 Onset of Symptoms Time: 07:20 Symptom Onset Unknown: No Exam Constitutional Vital Signs, click to edit/add: Last Vital Signs Temp 97.7 F 12/18/23 08:29 Pulse 75 12/18/23 09:54 Resp 18 12/18/23 08:29 BP 113/74 12/18/23 08:29 Pulse Ox 98 12/18/23 08:29 O2 Del Method Room Air 12/18/23 08:29 Common normals: no apparent distress, oriented x3 and alert General appearance: cooperative Orientation/consciousness: Yes awake HENMT Common normals: normocephalic and head/scalp atraumatic Eye Common normals: PERRL, EOMs intact bilaterally, conjunctivae normal and no scleral icterus Conjunctiva: conjunctiva(e) normal Pupil: PERRL Neck & C-Spine Common normals: no JVD Respiratory Common normals: normal respiratory effort, no use of accessory muscles and clear to auscultation bilaterally Effort & inspection: able to speak in complete sentences and symmetric chest movement Cardio Common normals: no JVD, regular rate, regular rhythm, S1 normal heart sound, S2 normal heart sound, no murmurs and peripheral pulses 2+ throughout GI Common normals: Normal to inspection, nondistended, normoactive bowel sounds present, soft to palpation and non-tender Bladder/kidney exam: bladder normal to palpation Extremity Common normals: normal to inspection, full ROM, normal capillary refill and no pedal edema General: no clubbing and no cyanosis Neuro Common normals: moves all extremities, no focal motor deficits and no sensory deficits noted Speech: speech normal Psych Common normals: mental status grossly normal and activity/motor behavior normal DS: Data Data Completed and Pending Completed studies during hospitalization: CT Brain, CXR, MRI Brain, CTA Head/Neck Labs on day of discharge: Labs from last 24 hours 06/12/24 06/11/24 04:08 07:53 WBC 5.9 RBC 3.90 L Hgb 8.2 L Hct 27.9 L MCV 71.5 L MCH 21.0 L MCHC 29.4 L RDW 18.0 H Plt Count 247 MPV 10.4 Neut % (Auto) 49.7 Lymph % (Auto) 41.3 [place] % (Auto) 6.6 Eos % (Auto) 1.5 Baso % (Auto) 0.7 Neut # (Auto) 2.9 Lymph # (Auto) 2.4 [place] # (Auto) 0.4 Eos # (Auto) 0.1 Baso # (Auto) 0.0 Abs Immat Gran (auto) 0.01 Imm/Tot Granulo (auto) 0.2 Retic Count (auto) 0.95 Sodium 139 Potassium 3.7 Chloride 108 H Carbon Dioxide 25.7 Anion Gap 9.0 BUN 9.0 Creatinine 0.60 Est GFR ( Amer) >60 Est GFR (Non-Af Amer) >60 BUN/Creatinine Ratio 15.0 Glucose 75 Estimat Average Glucose 114 Hemoglobin A1c 5.6 Calcium 7.8 L Magnesium 2.4 Iron 16.0 L TIBC 443.0 % Saturation 3.6 Ferritin 6.0 L Total Bilirubin 0.4 AST 8 L ALT 14 Alkaline Phosphatase 67 Total Protein 5.9 L Albumin 2.8 L Globulin 3.1 Albumin/Globulin Ratio 0.9 Triglycerides 53 Cholesterol 125 LDL Cholesterol, Calc 64.4 VLDL Cholesterol 10.6 HDL Cholesterol 50 Cholesterol/HDL Ratio 2.5 Vitamin B12 209.0 Folate 12.40 TSH & Free T4 Interp 1.336 Imaging Venous US: Attestation: I have reviewed the pertinent imaging results. Radiologist's impression: IMPRESSION: No deep or superficial vein thrombus identified in the legs 2D Echo: Attestation: I have reviewed the pertinent imaging results. Radiologist's impression: Cardiology final interpretaton pending Prelim read notes PFO/ASD Discharge Plan Discharge Disposition: Home, Self-Care Condition: Fair Discharge Medications: New ferrous sulfate [Iron (ferrous sulfate)] 325 mg (65 mg iron) tablet 325 mg PO BID Qty: 60 0RF Rx Instructions: Use stool softeners as needed to avoid constipation aspirin 81 mg tablet,delayed release (DR/EC) 81 mg PO DAILY Qty: 30 0RF atorvastatin 20 mg tablet 20 mg PO DAILY Qty: 30 0RF Continued bupropion HCl 100 mg tablet 100 mg PO TID Rx Instructions: Per Cristal Wilburn RN: this is all the patient takes, gets it at [facility] in [place]. verified dosing with drug [facility] 12/17/23 Print Language: Wolof Patient Instructions: Iron Supplements (By mouth) (Duofer, Fe-20, Bifera, Charan- Iron), Aspirin (By mouth), Atorvastatin (By mouth), Transient Ischemic Attack (DC) Activity Restrictions/Additional Instructions: - Consider repeat CMP in 6-8 weeks after initiation of statin therapy - Consider repeat CBC in 6-8 weeks to monitor anemia - Return to the ED if your symptoms recur Forms: Portal Instructions Follow Up Appointments: [facility] will send pt 30 day monitor directly to pt house / They will set up follow up appointment for one month and call pt from the stroke clinic. Any questions you may call them at [phone] Sat. December 22 @ 3pm with Dr. Page [phone] December 26 @ 9:20am with Dr. Barrera at [facility] [phone] Discharge Date/Time: 12/18/23 12:03
--- NOTE | 2023-12-18 11:46 | CM.NOTE ---
Rounds made with Dr. Mobley. Dr. Mboley discusses Echo findings/lab findings along with treatment plan. Lance verbalizes understanding. Plan for discharge today.
--- NOTE | 2023-12-18 13:03 | NUTR.NU ---
Pt was admitted 12/17/23 w/dx TIA, anemia. She is to be discharged today. PO intakes are variable. Pt has no dietary needs at this time.
--- OUTSIDE RECORDS SUMMARY | 2023-12-20 08:05 | XMS_ITS | CCD ---
Author Organization [facility] Care Team Providers Care Medical Office Supervisor Name Role Phone Bentley Amin Unavailable Unavailable Bentley Amin Unavailable Unavailable Ball, Edward Unavailable Unavailable Ball Edward KULKARNI Primary Care Provider [phone] FLORO, DIANNE Admitting Unavailable FLORO, DIANNE Attending Unavailable BALL, EDWARD E Primary Care Unavailable FLORO, DIANNE Admitting Unavailable FLORO, DIANNE Attending Unavailable BALL, EDWARD E Primary Care Unavailable FLORO, DIANNE Admitting Unavailable FLORO, DIANNE Attending Unavailable BALL, EDWARD Armijo Primary Care Unavailable BRYANNA BARTH Admitting Unavailable BALL, EDWARD Armijo Primary Care Unavailable FLORO, DIANNE Attending Unavailable SILVER DECKER Consulting Unavailable FLORO, DIANNE Admitting Unavailable FLORO, DIANNE Attending Unavailable BALL, EDWARD Armijo Primary Care Unavailable FLORO, DIANNE Admitting Unavailable [...] DR BALLARD Consulting Unavailable Camilo, Edward Unavailable EDWARD PAGE Primary Care Unavailable BALL, EDWARD Armijo Referring Unavailable BALL, EDWARD Armijo Primary Care Unavailable BALL, EDWARD E Referring Unavailable BALL, EDWARD E Primary Care Unavailable BALL, EDWARD E Referring Unavailable BALL, EDWARD E Primary Care Unavailable BALL, EDWARD E Referring Unavailable BALL, EDWARD Armijo Primary Care Unavailable BALL, EDWARD Armijo Referring Unavailable BALL, EDWARD Armijo Primary Care Unavailable Allergies Allergy Classification Reported Allergen(s) Allergy Type Date of Onset Reaction(s) Facility (6 sources) Penicillins Propensity to adverse reactions to drug 04-19-20 21 [employer] (9 sources) Penicillin G; Translations: [PENICILLIN G] Drug Allergy 03-13-20 17 [employer] (3 sources) Penicillin Drug Allergy 03-16-20 14 Unknown [facility] Other (4 sources) Substance with penicillin structure and antibacterial mechanism of action (substance) Drug allergy 01-14-20 18 Unknown [facility] Other (3 sources) patient allergy list reviewed by nurse or physicia Propensity to adverse reactions 02-27-20 17 Comment:Done [facility] Other (3 sources) Allergies Reconciled Propensity to adverse reactions Unknown [facility] Other Medications Current Medications Medication Drug Class(es) [...] mg docusate sodium 50 mg / sennosides, long-term 8.6 mg oral tablet (1 source) Start: [...] 40 % oral gel 15 g Start: 04-07-2022 dextrose 50 % IV solution hydrOXYzine hydrochloride 25 mg oral tablet (4 sources) Antihistamine Start: 04-09-2023 take 1-2 tablets by mouth once at bedtime as needed for sleep hydrOXYzine HCl 25 MG 1-2 tablets Orally q HS as needed for sleep Apr, Active ibuprofen 800 mg oral tablet (2 [...] Start: 10-12-2021 lansinoh lanol in ointment levonorgestrel 0.974364 mg/hr intrauterine system (7 sources) Progestin, Progestin-containing [...] (BICITRA) solution 30 mL Start: 10-12-2021 End: 04-07-2022 citric acid-sodium citrate ( BICITRA) solution 30 [...] premix Start: 10-12-2021 End: 10-13-2021 magnesium sulfate (80204 mg/ 500mL infusion) 2 ml metoclopramide 5 [...] source) Born by section; Translations: [Single liveborn , delivered by ] Episodic Malaise and fatigue [...] use; Translations: [TOBACCO USE] Onset: 08-17-2022 Episodic Residual codes; unclassified (1 source) Pain, unspecified; Translations: [Pain, unspecified] Onset: 12-18-2023 Episodic Unclassified (5 sources) No additional problems on file Past or Other Problems Problem Classification Problem Date Documented Da te Episodic/Chronic Immunizations and screening for infectious disease (1 source) Contact with and (suspected) exposure to other viral communicable diseases Onset: 06-14-2021 Resolved: 06-14-2021 Episodic Results Test Name Value Interpretation Reference Range Facility NICOTINE METABOLITESon 08-27 Cotinine <1.0 Normal [facility] Comment on above: Result Comment: This test was developed and its performance characteristics determined by [facility]. It has not been cleared or approved by the Food and Drug Administration. Cotinine levels greater than 20.0 are consistent with the use of tobacco or tobacco cessation products. Performed By: #### N ICTBLD #### [facility] [address] [address] [address] Malcolm Gil Nicotine <1.0 Normal [facility] Comment on above: Result Comment: This test was developed and its performance characteristics determined by [facility]. It has not been cleared or approved by the Food and Drug Administration. Nicotine levels greater than 2.0 are consistent with the use of tobacco or tobacco cessation products. Performed By: #### N ICTBLD #### [facility] [address] [address] [address] Malcolm Gil GLYCOHEMOGLOBIN A1Con 2022 ADA RECOMMENDATION SEE BELOW Normal [facility] Comment on above: Result Comment: ADA RECOMMENDED LIMIT 4.0 - 6.0 ADA THERAPEUTIC TARGET < 7.0 ACTION SUGGESTED > 7.0 Performed By: #### A 1C #### [facility] [address] [address] [address] Malcolm Gil Glucose [Mass/Vol] 163 mg/dL Normal [facility] Comment on above: Performed By: #### A 1C #### [facility] [address] [place] [address] Dr. Malcolm Gil HbA1c (Bld) [Mass fraction] 7.3 % Critically high 4.5-6.2 [facility] Comment on above: Performed By: #### A 1C #### [facility] [address] [address] [address] Malcolm Gil Glucose, Whole Bloodon 10-14 Glucose [Mass/Vol] 85 mg/dL 74 - 100 mg/dL [facility] Glucose, Whole Bloodon 10-13 Glucose [Mass/Vol] 161 mg/dL High 74 - 100 mg/dL [facility] Interpretation and review of laboratory results Abnormal [facility] Glucose [Mass/Vol] 168 mg/dL High 74 - 100 mg/dL [facility] Interpretation and review of laboratory results Abnormal [facility] Glucose [Mass/Vol] 136 mg/dL High 74 - 100 mg/dL [facility] Interpretation and review of laboratory results Abnormal [facility] Glucose [Mass/Vol] 137 mg/dL High 74 - 100 mg/dL [facility] Interpretation and review of laboratory results Abnormal [facility] Hemoglobinon 10-13-2021 Hemoglobin (Bld) [Mass/Vol] 10.1 g/dL Low 11.9-15.1 [facility] Comment on above: Performed By: #### U RTPRT #### [facility] [address] [place] [address] Hair Dryer: Morro Hale MD Hemoglobin.gastroin testinal spec 1 Ql (Stl) 10.1 g/dL Low 11.9 - 15.1 g/dL [facility] Interpretation and review of laboratory results Abnormal [facility] Hemoglobin A1Con 10-13-2021 Glucose [Mass/Vol] 143 mg/dL Normal [facility] Comment on above: Result Comment: The ADA and AACC recommend providing the estimated average glucose result to permit better patient understanding of their HBA1c result. Performed By: #### U RTPRT #### [facility] [address] [place] [address] Hair Dryer: Morro Hale MD HbA1c (Bld) [Mass fraction] 6.6 % High 4.0-6.0 [facility] Comment on above: Performed By: #### U RTPRT #### [facility] [address] [place] [address] Hair Dryer: Morro Hale MD Hemoglobin A1con 10-13-2021 Glucose [Mass/Vol] 143 mg/dL [facility] Comment on above: The ADA and AACC rec ommend providing the estimated average glucose result to permit better patient understanding of their HBA1c result. HbA1c (Bld) [Mass fraction] 6.6 % High 4.0 - 6.0 % [facility] Interpretation and review of laboratory results Abnormal [facility] Magnesiumon 10-13-2021 Magnesium [Mass/Vol] 4.7 mg/dL Critically high 1.6-2.6 [facility] Comment on above: Performed By: #### U RTPRT #### [facility] [address] [place] [address] Hair Dryer: Morro Hale MD Interpretation and review of laboratory results Abnormal [facility] Magnesium [Mass/Vol] 4.7 mg/dL Critically high 1.6 - 2.6 mg/dL [facility] Magnesium [Mass/Vol] 5.3 mg/dL Critically high 1.6-2.6 [facility] Comment on above: Performed By: #### M G #### [facility] [address] [place] [address] Hair Dryer: Morro Hale MD Interpretation and review of laboratory results Abnormal [facility] Magnesium [Mass/Vol] 5.3 mg/dL Critically high 1.6 - 2.6 mg/dL [facility] Magnesium [Mass/Vol] 4.1 mg/dL Critically high 1.6-2.6 [facility] Comment on above: Performed By: #### M G #### [facility] [address] [place] [address] Hair Dryer: Morro Hale MD APTTon 10-12-2021 aPTT Coag (Bld) [Time] 23.9 s Low 26.8-34.8 [facility] Comment on above: Result Comment: IV Heparin Therapy Range: 62.0-94.0 Performed By: #### U RTPRT #### [facility] [address] [place] [address] Hair Dryer: Morro Hale MD aPTT Coag (Bld) [Time] 23.9 s Low [facility] Comment on above: IV Heparin Therapy Range: 62.0-94.0 Interpretation and review of laboratory results Abnormal [facility] CBC with Auto Differentialon 10-12-2021 Absolute Eos # 0.11 [facility] Absolute Immature Granulocyte 0.07 [facility] Absolute Lymph # 2.20 [facility] Absolute [place] # 0.53 [facility] Basophils (Bld) [#/Vol] 0.04 10*3/uL [facility] Basophils/100 WBC (Bld) 0 % 0 - 2 % [facility] Eosinophils/100 WBC (Bld) 1 % 1 - 4 % [facility] Hematocrit (Bld) [Volume fraction] 34.6 % Low 36.3 - 47.1 % [facility] Hemoglobin.gastroin testinal spec 1 Ql (Stl) 11.2 g/dL Low 11.9 - 15.1 g/dL [facility] Immature granulocytes/100 WBC (Bld) 1 % High 0 [facility] Interpretation and review of laboratory results Abnormal [facility] Lymphocytes/100 WBC (Bld) 23 % Low 24 - 43 % [facility] MCH (RBC) [Entitic mass] 27.1 pg 25.2 - 33.5 pg [facility] MCHC (RBC) [Mass/Vol] 32.4 g/dL 28.4 - 34.8 g/dL [facility] MCV (RBC) [Entitic vol] 83.6 fL 82.6 - 102.9 fL [facility] Monocytes/100 WBC (Bld) 6 % 3 - 12 % [facility] NRBC Automated 0.0 0.0 per 100 WBC [facility] Platelet distribution width (Bld) [Ratio] 14.6 % High 11.8 - 14.4 % [facility] Platelet mean volume (Bld) [Entitic vol] 10.6 fL 8.1 - 13.5 fL [facility] Platelets (Bld) [#/Vol] 224 10*3/uL [facility] RBC (Bld) [#/Vol] 4.14 10*6/uL 3.95 - 5.11 m/uL [facility] Segmented neutrophils/100 WBC (Bld) 69 % High 36 - 65 % [facility] Segs Absolute 6.68 [facility]) [#/Vol] 9.6 10*3/uL [facility] CBC with Diffon 10-12-2021 Abs. Basophil 0.04 k/uL Normal 0.00-0.20 [facility] Comment on above: Performed By: #### U RTPRT #### [facility] [address] [place] [address] Hair Dryer: Morro Hale MD Abs.Imm.Granulocyte 0.07 k/uL Normal 0.00-0.30 [facility] Comment on above: Performed By: #### U RTPRT #### [facility] [address] [place] [address] Dr[address] [place] [id number] Hair Dryer: Morro Hale MD Abs.Neutrophil (Seg) 6.68 k/uL Normal 1.50-8.10 [facility] Comment on above: Performed By: #### U RTPRT #### [facility] [address] [place] [address] Dr. [place] [id number] Hair Dryer: Morro Hale MD Basophils/100 WBC (Bld) 0 % Normal 0-2 [facility] Comment on above: Performed By: #### U RTPRT #### [facility] [address] [place] [address] [place] [address] Hair Dryer: Morro Hale MD Eosinophils (Bld) [#/Vol] 0.11 10*3/uL Normal 0.00-0.44 [facility] Comment on above: Performed By: #### U RTPRT #### [address] [place], [place] [address] Hair Dryer: Morro Hale MD Eosinophils/100 WBC (Bld) 1 % Normal 1-4 [facility] Comment on above: Performed By: #### U RTPRT #### [facility] [address] [place] [address] Dr. [place], [facility]83 Hair Dryer: Morro Hale MD Erythrocyte distribution width (RBC) [Ratio] 14.6 % High 11.8-14.4 [facility] Comment on above: Performed By: #### U RTPRT #### [address] [place], [facility]83 Hair Dryer: Morro Hale MD Hematocrit (Bld) [Volume fraction] 34.6 % Low 36.3-47.1 [facility] Comment on above: Performed By: #### U RTPRT #### [facility] [address] [place], [facility]83 Hair Dryer: Morro Hale MD Hemoglobin (Bld) [Mass/Vol] 11.2 g/dL Low 11.9-15.1 [facility] Comment on above: Performed By: #### U RTPRT #### [facility] [address] [place], [facility] Hair Dryer: Morro Hale MD Immature granulocytes/100 WBC (Bld) 1 % High 0 [facility] Comment on above: Performed By: #### U RTPRT #### [address] [place], [facility]83 Hair Dryer: Morro Hale MD Lymphocytes (Bld) [#/Vol] 2.20 10*3/uL Normal 1.10-3.70 [facility] Comment on above: Performed By: #### U RTPRT #### [address] [place], [facility]83 Hair Dryer: Morro Hale MD Lymphocytes/100 WBC (Bld) 23 % Low 24-43 [facility] Comment on above: Performed By: #### U RTPRT #### [facility] [address] [place] [address] Dr. [place], [facility]83 Hair Dryer: Morro Hale MD MCH (RBC) [Entitic mass] 27.1 pg Normal 25.2-33.5 [facility] Comment on above: Performed By: #### U RTPRT #### [facility] [address] [place] [address] [place] [address] Hair Dryer: Morro Hale MD MCHC (RBC) [Mass/Vol] 32.4 g/dL Normal 28.4-34.8 [facility] Comment on above: Performed By: #### U RTPRT #### [facility] [address] [place], [place] [id number] Hair Dryer: Morro Hale MD MCV (RBC) [Entitic vol] 83.6 fL Normal 82.6-102.9 [facility] Comment on above: Performed By: #### U RTPRT #### [facility] [address] [place], [place] [id number] Hair Dryer: Morro Hale MD Monocytes (Bld) [#/Vol] 0.53 10*3/uL Normal 0.10-1.20 [facility] Comment on above: Performed By: #### U RTPRT #### [facility] [address] [place], [place] [id number] Hair Dryer: Morro Hale MD Monocytes/100 WBC (Bld) 6 % Normal 3-12 [facility] Comment on above: Performed By: #### U RTPRT #### [facility] [address] [place], [place] [id number] Hair Dryer: Morro Hale MD Neutrophil (Seg) 69 % High 36-65 [facility] Comment on above: Performed By: #### U RTPRT #### [facility] [address] [place] [address] Dr. [place], [place] [id number] Hair Dryer: Morro Hale MD NRBC Automated 0.0 per 100 WBC Normal 0.0 [facility] Comment on above: Performed By: #### U RTPRT #### [facility] [address] [place], [place] [id number] Hair Dryer: Morro Hale MD Platelet mean volume (Bld) [Entitic vol] 10.6 fL Normal 8.1-13.5 [facility] Comment on above: Performed By: #### U RTPRT #### [facility] [address] [place], [place] [id number] Hair Dryer: Morro Hale MD Platelets (Bld) [#/Vol] 224 10*3/uL Normal 138-453 [facility] Comment on above: Performed By: #### U RTPRT #### [facility] [address] [place], [place] [address]83 Hair Dryer: Morro Hale MD RBC (Bld) [#/Vol] 4.14 10*6/uL Normal 3.95-5.11 [facility] Comment on above: Performed By: #### U RTPRT #### [facility] [address] [place] [address] Hair Dryer: Morro Hale MD WBC (Bld) [#/Vol] 9.6 10*3/uL Normal 3.5-11.3 [facility] Comment on above: Performed By: #### U RTPRT #### [facility] [address] [place], [place] [id number] Hair Dryer: Morro Hale MD Comp Metabolic Profon 2021 (cont.) Normal [facility] Comment on above: Result Comment: Aver age GFR for 30-39 years old: 107 mL/min/1.73sq m Chronic Kidney Disease: <60 mL/min/1.73sq m Kidney failure: <15 mL/min/1.73sq m eGFR calculated using average adult body mass. Additional eGFR calculator available at: http://[email or web address]/multiple_crcl_2011.htm Performed By: #### U RTPRT #### [facility] [address] [place], [place] [id number] Hair Dryer: Morro Hale MD Albumin [Mass/Vol] 3.3 g/dL Low 3.5-5.2 [facility] Comment on above: Performed By: #### U RTPRT #### [facility] [address] [place], [place] [id number] Hair Dryer: Morro Hale MD Albumin/Glob Ratio 1.2 Normal 1.0-2.5 [facility] Comment on above: Performed By: #### U RTPRT #### [facility] [address] [place], [place] 8[address]83 Hair Dryer: Morro Hale MD Alkaline Phos 112 U/L High 35-104 [facility] Comment on above: Performed By: #### U RTPRT #### [facility] [address] [place], [place] [id number] Hair Dryer: Morro Hale MD ALT [Catalytic activity/Vol] 11 U/L Normal 5-33 [facility] Comment on above: Performed By: #### U RTPRT #### [facility] [address] [place], [place] [address]695783 Hair Dryer: Morro Hale MD Anion gap [Moles/Vol] 11 mmol/L Normal 9-17 [facility] Comment on above: Performed By: #### U RTPRT #### [facility] [address] [place], [place] [id number] Hair Dryer: Morro Hael MD AST [Catalytic activity/Vol] 14 U/L Normal <32 [facility] Comment on above: Performed By: #### U RTPRT #### [facility] [address] [place], [place] [id number] Hair Dryer: Morro Hale MD Bilirubin [Mass/Vol] 0.27 mg/dL Low 0.3-1.2 [facility] Comment on above: Performed By: #### U RTPRT #### [facility] [address] [place], [place] [id number] Hair Dryer: Morro Hale MD BUN/CRE Ratio 19 Normal 9-20 [facility] Comment on above: Performed By: #### U RTPRT #### [facility] [address] [place], [place] [id number] Hair Dryer: Morro Hale MD Calcium [Mass/Vol] 9.2 mg/dL Normal 8.6-10.4 [facility] Comment on above: Performed By: #### U RTPRT #### [facility] [address] [place], [place] [id number] Hair Dryer: Morro Hale MD Chloride [Moles/Vol] 98 mmol/L Normal 98-107 [facility] Comment on above: Performed By: #### U RTPRT #### [facility] [address] [place], [place] [id number] Hair Dryer: Morro Hale MD CO2 [Moles/Vol] 21 mmol/L Normal 20-31 [facility] Comment on above: Performed By: #### U RTPRT #### [facility] [address] [place], [place] [id number] Hair Dryer: Morro Hale MD Creatinine [Mass/Vol] 0.58 mg/dL Normal 0.50-0.90 [facility] Comment on above: Performed By: #### U RTPRT #### [facility] [address] [place], [place] [id number] Hair Dryer: Morro Hale MD GFR, Amer >60 Normal >60 [facility] Comment on above: Performed By: #### U RTPRT #### [facility] [address] [place], [place] [phone] Hair Dryer: Morro Hale MD GFR,non Amer >60 Normal >60 [facility] Comment on above: Performed By: #### U RTPRT #### [facility] [address] [place] [address] Hair Dryer: Morro Hale MD Glucose [Mass/Vol] 120 mg/dL High 70-99 [facility] Comment on above: Performed By: #### U RTPRT #### [facility] [address] [place] [address] Dr. [place], [place] [id number] Hair Dryer: Morro Hale MD Potassium [Moles/Vol] 3.8 mmol/L Normal 3.7-5.3 [facility] Comment on above: Performed By: #### U RTPRT #### [facility] [address] [place] [address] Dr. [place], [place] [id number] Hair Dryer: Morro Hale MD Protein [Mass/Vol] 6.1 g/dL Low 6.4-8.3 [facility] Comment on above: Performed By: #### U RTPRT #### [facility] [address] [place] [address] Dr. [place], [place] [id number] Hair Dryer: Morro Hale MD Sodium [Moles/Vol] 130 mmol/L Low 135-144 [facility] Comment on above: Performed By: #### U RTPRT #### [address] [place], [place] [id number] Hair Dryer: Morro Hale MD Staging: Normal [facility] Comment on above: Result Comment: Stag e 1: Some kidney damage normal GFR Stage 2: Mild kidney damage GFR 60-89 Stage 3: Moderate kidney damage GFR 30-59 Stage 4: Severe kidney damage GFR 15-29 Stage 5: Severe kidney damage GFR <15 ESRD - chronic treatment by dialysis or transplant Performed By: #### U RTPRT #### [facility] [address] [place] [address] Dr. [place], [place] [id number] Hair Dryer: Morro Hale MD Urea nitrogen [Mass/Vol] 11 mg/dL Normal 6-20 [facility] Comment on above: Performed By: #### U RTPRT #### [facility] [address] [place] [address] [place] [address] Hair Dryer: Morro Hale MD Comprehensive Metabolic Pane [facility] system 10-12-2021 Albumin [Mass/Vol] 3.3 g/dL Low 3.5 - 5.2 g/dL [facility] Albumin/Globulin [Mass ratio] 1.2 {ratio} [facility] ALP (Bld) [Catalytic activity/Vol] 112 U/L High 35 - 104 U/L [facility] ALT [Catalytic activity/Vol] 11 U/L 5 - 33 U/L [facility] Anion gap [Moles/Vol] 11 mmol/L 9 - 17 mmol/L [facility] AST [Catalytic activity/Vol] 14 U/L <32 [facility] Bilirubin [Mass/Vol] 0.27 mg/dL Low 0.3 - 1.2 mg/dL [facility] Calcium [Mass/Vol] 9.2 mg/dL 8.6 - 10. 4 mg/dL [facility] Chloride [Moles/Vol] 98 mmol/L 98 - 107 mmol/L [facility] CO2 [Moles/Vol] 21 mmol/L 20 - 31 mmol/L [facility] Creatinine [Mass/Vol] 0.58 mg/dL 0.50 - 0.90 mg/dL [facility] Free PSA/Total PSA [Mass fraction] 6.1 g/dL Low 6.4 - 8.3 g/dL [facility] GFR >60 >60 mL/min [facility] GFR Non- >60 >60 mL/min [facility] Glucose [Mass/Vol] 120 mg/dL High 70 - 99 mg/dL [facility] Interpretation and review of laboratory results Abnormal [facility] Potassium [Moles/Vol] 3.8 mmol/L 3.7 - 5.3 mmol/L [facility] Sodium [Moles/Vol] 130 mmol/L Low 135 - 144 mmol/L [facility] Urea nitrogen (BldV) [Mass/Vol] 11 mg/dL 6 - 20 mg/dL [facility] Urea nitrogen/Creatinine (Bld) [Mass ratio] 19 [facility] Drug Scr, Abuse, Uron 2021 Amphetamine(s),Ur Negative Normal NEG [facility] Comment on above: Performed By: #### D AU #### [facility] [address] [place] [address] Hair Dryer: Morro Hale MD Barbiturate(s),Ur Negative Normal NEG [facility] Comment on above: Performed By: #### D AU #### [facility] [address] [place], [place] [id number] Hair Dryer: Morro Hale MD Benzodiazepine(s) Negative Normal NEG [facility] Comment on above: Performed By: #### D AU #### [facility] [address] [place], [place] [id number] Hair Dryer: Morro Hale MD Buprenorphrine, Ur Negative Normal NEG [facility] Comment on above: Performed By: #### D AU #### [facility] [address] [place], [place] [id number] Hair Dryer: Morro Hale MD Cannabinoid(s),Ur Negative Normal NEG [facility] Comment on above: Performed By: #### D AU #### [facility] [address] [place], [place] [id number] Hair Dryer: Morro Hlae MD Cocaine Metabolite Negative Normal [facility] Comment on above: Performed By: #### D AU #### [facility] [address] [place], [place] [id number] Hair Dryer: Morro Hale MD Methadone Ql (U) Negative Normal NEG [facility] Comment on above: Performed By: #### D AU #### [facility] [address] [place], [place] [id number] Hair Dryer: Morro Hale MD Methamphetamine, Ur Negative Normal NEG [facility] Comment on above: Performed By: #### D AU #### [facility] [address] [place], [place] [id number] Hair Dryer: Morro Hale MD Opiate(s), Ur Negative Normal NEG [facility] Comment on above: Performed By: #### D AU #### [facility] [address] [place], [place] [phone] Hair Dryer: Morro Hale MD Oxycodone, Urine Negative Normal NEG [facility] Comment on above: Performed By: #### D AU #### [facility] [address] [place] [address] Hair Dryer: Morro Hale MD Phencyclidine, Ur Negative Normal [facility] Comment on above: Performed By: #### D AU #### [facility] [address] [place], [place] [id number] Hair Dryer: Morro Hale MD Propoxyphene,Urine Negative Normal NEG [facility] Comment on above: Performed By: #### D AU #### [facility] [address] [place] [address] Hair Dryer: Morro Hale MD Tricyclic antidepressants Screen Ql (U) Negative Normal [facility] Comment on above: Result Comment: Drug screen results are to be used for medical purposes only. All positive results are unconfirmed. Testing for employment or legal uses should be sent to a reference laboratory for confirmation. Performed By: #### D AU #### [facility] [address] [place], [place] [id number] Hair Dryer: Morro Hale MD Fibrinogenon 10-12-2021 Fibrinogen 572 mg/dL High 179-518 [facility] Comment on above: Performed By: #### U RTPRT #### [facility] [address] [place] [address] Hair Dryer: Morro Hale MD Fibrinogen 572 mg/dL High 179 - 518 mg/dL [facility] Interpretation and review of laboratory results Abnormal [facility] Glucose, Whole Bloodon 10-12 Glucose [Mass/Vol] 229 mg/dL High 74 - 100 mg/dL [facility] Interpretation and review of laboratory results Abnormal [facility] Glucose [Mass/Vol] 216 mg/dL High 74 - 100 mg/dL [facility] Interpretation and review of laboratory results Abnormal [facility] Glucose [Mass/Vol] 129 mg/dL High 74 - 100 mg/dL [facility] Interpretation and review of laboratory results Abnormal [facility] Laboratory - Chemistry and C hemistry - challengeon 10-12-2021 GFR/1.73 sq M.predicted MDRD (S/P/Bld) [Vol rate/Area] [facility] Comment on above: Average GFR for 30-3 9 years old: 107 mL/min/1.73sq m Chronic Kidney Disease: <60 mL/min/1.73sq m Kidney failure: <15 mL/min/1.73sq m eGFR calculated using average adult body mass. Additional eGFR calculator available at: http://www.P4RC/multiple_crcl_2012.htm Stage 1: Some kidney damage normal GFR Stage 2: Mild kidney damage GFR 60-89 Stage 3: Moderate kidney damage GFR 30-59 Stage 4: Severe kidney damage GFR 15-29 Stage 5: Severe kidney damage GFR <15 ESRD - chronic treatment by dialysis or transplant Lactate Dehydrogenaseon - LDH [Catalytic activity/Vol] 194 U/L Normal 135-214 [facility] Comment on above: Performed By: #### U RTPRT #### [address] [place] [address] Hair Dryer: Morro Hale MD LD 194 U/L 135 - 214 U/L [facility] Magnesiumon 10-12-2021 Interpretation and review of laboratory results Abnormal [facility] Magnesium [Mass/Vol] 4.1 mg/dL Critically high 1.6 - 2.6 mg/dL [facility] Magnesium [Mass/Vol] 4.0 mg/dL Critically high 1.6-2.6 [facility] Comment on above: Performed By: #### M G #### [address] [place] [address] Hair Dryer: Morro Hale MD Interpretation and review of laboratory results Abnormal [facility] Magnesium [Mass/Vol] 4.0 mg/dL Critically high 1.6 - 2.6 mg/dL [facility] No Panel Informationon 10-12 [facility] OPERATIVE REPORTon OPERATIVE REPORT [address] [place] [address] OPERATIVE REPORT PATIENT NAME: SOLANGE MURPHY : 1985 MED REC NO: [id number] ROOM: 0203 ACCOUNT NO: [id number] ADMIT DATE: 10/12/2021 PROVIDER: Farzad Panda MD DATE OF PROCEDURE: 10/12/2021 ADDENDUM FERN GATHERER: ELINOR Chambers MD [id number] Doc#: [id number] Normal [facility] OPERATIVE REPORT [place] [id number] OPERATIVE REPORT PATIENT NAME: SOLANGE MURPHY : 1985 MED REC NO: [id number] ROOM: 0203 ACCOUNT NO: [id number] ADMIT DATE: 10/12/2021 PROVIDER: Farzad Panda MD [...] low-transverse uterine segment with bilateral salpingectomy. SURGEON: Farzad Panda M.D. ANESTHESIA: Spinal. ESTIMATED BLOOD LOSS: [...] was extended in a semilunar fashion with bench press operator's fingers. head was elevated. Fundal pressure placed. [...] cut. Infant handed off to nursing and manager recovery who attended the delivery. Cord blood specimen [...] be correct. FARZAD PANDA MD [id number] Doc#: [id number] CC: Normal [facility] PTon 10-12-2021 INR Coag (PPP) [Relative time] 1.0 {INR} Normal [facility] Comment on above: Result Comment: Non-therapeutic Range: INR = 0.9-1.2 Therapeutic Range: Moderate Anticoagulant Intensity: INR = 2.0-3.0 High Anticoagulant Intensity: INR = 2.5-3.5 Performed By: #### U RTPRT #### [address] [place] [address] Hair Dryer: Morro Hale MD PT Coag (PPP) [Time] 13.1 s Normal 11.5-14.2 [facility] Comment on above: Performed By: #### U RTPRT #### [address] [place] [address] Hair Dryer: Morro Hale MD Protein / Creatinine Ratio, Urineon 10-12-2021 Creatinine, Ur 51.4 mg/dL 28.0 - 217.0 mg/dL [facility] Protein (U) [Mass/Vol] 5 mg/dL [facility] Comment on above: No normal range esta blished. Urine Total Protein Creatinine Ratio 0.[address] [facility] Protein,Tot,Todd Uron 2021 Creatinine [Mass/Vol] 51.4 mg/dL Normal 28.0-217.0 [facility] Comment on above: Performed By: #### U RTPRT #### [facility] [address] [place] [address] Dr. [place], [place] [phone] Hair Dryer: Morro Hale MD Tot Prot. Conc. 5 mg/dL Normal [facility] Comment on above: Result Comment: No n ormal range established. Performed By: #### U RTPRT #### [facility] [address] [place], [place] [phone] Hair Dryer: Morro Hale MD TP/Cre Ratio 0.10 Normal 0.00-0.20 [facility] Comment on above: Performed By: #### U RTPRT #### [facility] [address] [place] [address] Hair Dryer: Morro Hale MD Protime-INRon 10-12-2021 INR Coag (Bld) [Relative time] 1.0 {INR} [facility] Comment on above: Non-therapeutic Range: INR = 0.9-1.2 Therapeutic Range: Moderate Anticoagulant Intensity: INR = 2.0-3.0 High Anticoagulant Intensity: INR = 2.5-3.5 PT Coag (PPP) [Time] 13.1 s [facility] Surgical Pathologyon 022 Surgical Pathology (NOTE) -- Diagnosis -- A. LEFT FALLOPIAN TUBE, SALPINGECTOMY: -NO PATHOLOGIC DIAGNOSIS B. RIGHT FALLOPIAN TUBE, SALPINGECTOMY: -NO PATHOLOGIC DIAGNOSIS C. THIRD TRIMESTER TYPE PLACENTA (675 G) DEMONSTRATING: -TWO-VESSEL HYPER SPIRALED UMBILICAL CORD -UNREMARKABLE PLACENTAL MEMBRANES -THIRD TRIMESTER TYPE PLACENTAL DISC DEMONSTRATING NO SIGNIFICANT HISTOPATHOLOGIC FEATURES Murphy Valle D.O. Electronically Signed Out [facility]10/16/2021 Clinical Information Operative Findings: L TUBE; [...] microcalcifications SURGICAL PATHOLOGY CONSULTATION Patient Name: SOLANGE MURPHY [facility] Rec: [id number] Path Number: [id number] [facility] ANATOMIC PATHOLOGY [address] [place] [phone] Normal [facility] Comment on above: Performed By: #### M G #### [facility] [address] [place] [address] [place] [address] Hair Dryer: Morro Hale MD TYPE AND SCREENon 10-12-2021 ABO/Rh Positive [facility] Arm Band Number [id number] [facility] Expiration Date 10/15/2021,2356 [facility] Type + Screenon 10-12-2021 Type + Screen Sample Expiration 10/15/2021,2359 Arm Band Number [id number] ABO/Rh(D) O POSITIVE Antibody Screen NEGATIVE Normal [facility] Comment on above: Performed By: #### T YS #### [facility] [address] [place] [address] [place] [address] Hair Dryer: Morro Hale MD Uric Acidon 10-12-2021 Urate [Mass/Vol] 4.4 mg/dL Normal 2.4-5.7 [facility] Comment on above: Performed By: #### U RTPRT #### [facility] [address] [place] [address] Hair Dryer: Morro Hale MD Urate [Mass/Vol] 4.4 mg/dL 2.4 - 5.7 mg/dL [facility] Urinalysison 10-12-2021 Bilirubin Urine Negative NEGATIVE [facility] lth Color, UA Yellow Yellow [facility] Glucose, Ur Negative NEGATIVE [facility] Ketones Ql (U) Negative NEGATIVE [facility] Leukocyte esterase Test strip Ql (U) Negative NEGATIVE [facility] Nitrite, Urine Negative NEGATIVE [facility] pH, UA 6.0 [facility] Protein, UA Negative NEGATIVE [facility] Specific Howe, UA 1.015 [facility] Turbidity UA Clear Clear [facility] Urine Hgb Negative NEGATIVE [facility] Urobilinogen, Urine Normal Normal [facility] Urinalysis, Routineon 2021 Bilirubin, SemiQt,Ur Negative Normal NEG [facility] Comment on above: Performed By: #### M G #### [facility] [address] [place] [address] [place] [address] Hair Dryer: Morro Hale MD Blood, Urine Negative Normal NEG [facility] Comment on above: Performed By: #### M G #### [address] [place] [address] Hair Dryer: Morro Hale MD Clarity (U) Clear Normal CLEAR [facility] Comment on above: Performed By: #### M G #### [address] [place] [phone] Hair Dryer: Morro Hale MD Color (U) Yellow Normal YEL [facility] Comment on above: Performed By: #### M G #### [facility] [address] [place], [place] [phone] Hair Dryer: Morro Hale MD Glucose Ql (U) Negative Normal NEG [facility] Comment on above: Performed By: #### M G #### [facility] [address] [place], [place] [phone] Hair Dryer: Morro Hale MD Ketones Ql (U) Negative Normal NEG [facility] Comment on above: Performed By: #### M G #### [facility] [address] [place] [address] Dr. [place], [place] [phone] Hair Dryer: Morro Hale MD Leukocyte esterase Test strip Ql (U) Negative Normal NEG [facility] Comment on above: Performed By: #### M G #### [facility] [address] [place] [address] Dr. [place], [place] [phone] Hair Dryer: Morro Hale MD Nitrite,Ur Negative Normal [facility] Comment on above: Performed By: #### M G #### [facility] [address] [place] [address] Dr. [place], [place] [phone] Hair Dryer: Morro Hale MD PH,Ur 6.0 Normal 5.0-9.0 [facility] Comment on above: Performed By: #### M G #### [facility] [address] [place], [place] [phone] Hair Dryer: Morro Hale MD Protein Ql (U) Negative Normal NEG [facility] Comment on above: Performed By: #### M G #### [facility] [address] [place], [place] [phone] Hair Dryer: Morro Hale MD Spec. Howe,Ur 1.015 Normal 1.010-1.02 0 [facility] Comment on above: Performed By: #### M G #### [facility] [address] [place] [address] Hair Dryer: Morro Hale MD Urobilinogen,Ur Normal Normal NORM [facility] Comment on above: Performed By: #### M G #### [facility] [address] [place] [address] Hair Dryer: Morro Hale MD Urine Drug Screenon 10-13-19 22 Amphetamine Screen, Ur Negative NEGATIVE [facility] Barbiturate Screen, Ur Negative NEGATIVE [facility] Benzodiazepine Screen, Urine Negative NEGATIVE [facility] Buprenorphine Urine Negative NEGATIVE [facility] Cannabinoid Scrn, Ur Negative NEGATIVE [facility] Cocaine Metabolite, Urine Negative NEGATIVE [facility] Methadone Screen, Urine Negative NEGATIVE [facility] Methamphetamine, Urine Negative NEGATIVE [facility] Opiates, Urine Negative NEGATIVE [facility] Oxycodone Screen, Ur Negative NEGATIVE [facility] Phencyclidine, Urine Negative NEGATIVE [facility] Propoxyphene, Urine Negative NEGATIVE [facility] Tricyclic Antidepressants, Urine Negative NEGATIVE [facility] Comment on above: Drug screen results are to be used for medical purposes only. All positive results are unconfirmed. Testing for employment or legal uses should be sent to a reference laboratory for confirmation. [employer] GBS, External Resulton 09-26 GBS, External Result Positive [facility] Work Phone: Verified with Jacqueline Manuel RN [facility] Work Phone: [employer] Phone: US Biophysical Profileon US Biophysical Profile FINDINGS: Breathing Movements2 Gross Body Movements 2 Tone2 Qualitative amniotic fluid volume2 A single, viable intrauterine is present. Heart rate 128 bpm. Cervix is closed 4.0 cm. Cephalic presentation, posterior fundal placenta, Grade 2. IMPRESSION: Posterior fundal placenta Grade 2 and normal biophysical profile. Report reported and signed by Ruben Howell on 09/26/2021 1028 Normal [facility] Wealth Management Director US OB Limitedon 09-26-2021 US OB Limited [...] week earlier. Report reported and signed by Ruben Howell on 09/26/2021 0933 Normal [facility] Wealth Management Director US OB Limitedon 09-18-2021 US OB Limited [...] by Ruben Howell on 09/19/2021 0823 Normal [facility] Wealth Management Director CBC with Auto Differentialon 09-16-2021 Absolute Eos # 0.12 [facility] th Absolute Immature Granulocyte 0.10 [facility] Absolute Lymph # 2.44 [facility] alth Absolute [place] # 0.62 [facility] lt Basophils (Bld) [#/Vol] 0.04 10*3/uL [facility] Basophils/100 WBC (Bld) 0 % 0 - 2 % [facility] Eosinophils/100 WBC (Bld) 1 % 1 - 4 % [facility] Hematocrit (Bld) [Volume fraction] 35.0 % Low 36.3 - 47.1 % [facility] Hemoglobin.gastroin testinal spec 1 Ql (Stl) 11.2 g/dL Low 11.9 - 15.1 g/dL [facility] Immature granulocytes/100 WBC (Bld) 1 % High 0 [facility] Interpretation and review of laboratory results Abnormal [facility] Lymphocytes/100 WBC (Bld) 21 % Low 24 - 43 % [facility] MCH (RBC) [Entitic mass] 27.5 pg 25.2 - 33.5 pg [facility] MCHC (RBC) [Mass/Vol] 32.0 g/dL 28.4 - 34.8 g/dL [facility] MCV (RBC) [Entitic vol] 86.0 fL 82.6 - 102.9 fL [facility] Monocytes/100 WBC (Bld) 5 % 3 - 12 % [facility] NRBC Automated 0.0 0.0 per 100 WBC [facility] Platelet distribution width (Bld) [Ratio] 14.2 % 11.8 - 14.4 % [facility] Platelet mean volume (Bld) [Entitic vol] 9.6 fL 8.1 - 13.5 fL [facility] Platelets (Bld) [#/Vol] 210 10*3/uL [facility] RBC (Bld) [#/Vol] 4.07 10*6/uL 3.95 - 5.11 m/uL [facility] Segmented neutrophils/100 WBC (Bld) 72 % High 36 - 65 % [facility] Segs Absolute 8.37 High [facility] W[facility] (Bld) [#/Vol] 11.7 10*3/uL High [facility] CBC with Diffon 09-16-2021 Abs. Basophil 0.04 k/uL Normal 0.00-0.20 [facility] Comment on above: Performed By: #### Elliot Marshall CP, URI, CDP #### [facility] [address] [place] [address] [place] [address] Hair Dryer: Morro Hale MD Abs.Imm.Granulocyte 0.10 k/uL Normal 0.00-0.30 [facility] Comment on above: Performed By: #### Elliot Marshall CP, URI, CDP #### [facility] [address] [place] [address] [place] [address] Hair Dryer: Morro Hale MD Abs.Neutrophil (Seg) 8.37 k/uL High 1.50-8.10 [facility] Comment on above: Performed By: #### Elliot Marshall CP, URI, CDP #### [facility] [address] [place] [address] [place] [address] Hair Dryer: Morro Hale MD Basophils/100 WBC (Bld) 0 % Normal 0-2 [facility] Comment on above: Performed By: #### L D, CP, URI, CDP #### [facility] [address] [place] [address] [place] [address] Hair Dryer: Morro Hale MD Eosinophils (Bld) [#/Vol] 0.12 10*3/uL Normal 0.00-0.44 [facility] Comment on above: Performed By: #### L D, CP, URI, CDP #### [facility] [address] [place], [place] [phone] Hair Dryer: Morro Hale MD Eosinophils/100 WBC (Bld) 1 % Normal 1-4 [facility] Comment on above: Performed By: #### L D, CP, URI, CDP #### [address] [place], [place] [phone] Hair Dryer: Morro Hale MD Erythrocyte distribution width (RBC) [Ratio] 14.2 % Normal 11.8-14.4 [facility] Comment on above: Performed By: #### L Carla, YUMIKO, URI, CDP #### [address] [place] [address] Hair Dryer: Morro Hale MD Hematocrit (Bld) [Volume fraction] 35.0 % Low 36.3-47.1 [facility] Comment on above: Performed By: #### L D, CP, URI, CDP #### [address] [place] [address] Hair Dryer: Morro Hale MD Hemoglobin (Bld) [Mass/Vol] 11.2 g/dL Low 11.9-15.1 [facility] Comment on above: Performed By: #### L D, CP, URI, CDP #### [address] [place] [address] Hair Dryer: Morro Hale MD Immature granulocytes/100 WBC (Bld) 1 % High 0 [facility] Comment on above: Performed By: #### L Carla, YUMIKO, URI, CDP #### [facility] [address] [place] [address] Dr[place], [place] [phone] Hair Dryer: Morro Hale MD Lymphocytes (Bld) [#/Vol] 2.44 10*3/uL Normal 1.10-3.70 [facility] Comment on above: Performed By: #### L Carla, YUMIKO, URI, CDP #### [address] [place], [place] [phone] Hair Dryer: Morro Hale MD Lymphocytes/100 WBC (Bld) 21 % Low 24-43 [facility] Comment on above: Performed By: #### L Carla, YUMIKO, URI, CDP #### [address] [place], [place] [phone] Hair Dryer: Morro Hale MD MCH (RBC) [Entitic mass] 27.5 pg Normal 25.2-33.5 [facility] Comment on above: Performed By: #### L YUMIKO Marshall, URI, CDP #### [address] [place] [address] Hair Dryer: Morro Hale MD MCHC (RBC) [Mass/Vol] 32.0 g/dL Normal 28.4-34.8 [facility] Comment on above: Performed By: #### L Carla, YUMIKO, URI, CDP #### [address] [place], [place] [id number] Hair Dryer: Morro Hale MD MCV (RBC) [Entitic vol] 86.0 fL Normal 82.6-102.9 [facility] Comment on above: Performed By: #### L Carla, YUMIKO, URI, CDP #### [address] [place] [address] Hair Dryer: Morro Hale MD Monocytes (Bld) [#/Vol] 0.62 10*3/uL Normal 0.10-1.20 [facility] Comment on above: Performed By: #### L YUMIKO Marshall, URI, CDP #### [facility] [address] [place], [place] [id number] Hair Dryer: Morro Hale MD Monocytes/100 WBC (Bld) 5 % Normal 3-12 [facility] Comment on above: Performed By: #### L YUMIKO Marshall, URI, CDP #### [facility] [address] [place], [place] [id number] Hair Dryer: Morro Hale MD Neutrophil (Seg) 72 % High 36-65 [facility] Comment on above: Performed By: #### L YUMIKO Marshall, URI, CDP #### [address] [place], [place] [id number] Hair Dryer: Morro Hale MD NRBC Automated 0.0 per 100 WBC Normal 0.0 [facility] Comment on above: Performed By: #### Elliot Marshall CP URI, CDP #### [address] [place], [place] [id number] Hair Dryer: Morro Hale MD Platelet mean volume (Bld) [Entitic vol] 9.6 fL Normal 8.1-13.5 [facility] Comment on above: Performed By: #### Elliot Marshall CP URI, CDP #### [facility] [address] [place] [address] [place] [address] Hair Dryer: Morro Hael MD Platelets (Bld) [#/Vol] 210 10*3/uL Normal 138-453 [facility] Comment on above: Performed By: #### L YUMIKO Marshall, URI, CDP #### [address] [place], [place] [id number] Hair Dryer: Morro Hale MD RBC (Bld) [#/Vol] 4.07 10*6/uL Normal 3.95-5.11 [facility] Comment on above: Performed By: #### Elliot Marshall CP, URI, CDP #### [facility] [address] [place] [address] Hair Dryer: Morro Hale MD WBC (Bld) [#/Vol] 11.7 10*3/uL High 3.5-11.3 [facility] Comment on above: Performed By: #### Elliot Marshall CP URI, CDP #### [facility] [address] [place], [place] [id number] Hair Dryer: Morro Hale MD Comp Metabolic Profon 2021 (cont.) Normal [facility] Comment on above: Result Comment: Aver age GFR for 30-39 years old: 107 mL/min/1.73sq m Chronic Kidney Disease: <60 mL/min/1.73sq m Kidney failure: <15 mL/min/1.73sq m eGFR calculated using average adult body mass. Additional eGFR calculator available at: http://www.Shoto.Fighters/multiple_crcl_2012.htm Performed By: #### Elliot Marshall CP, URI, CDP #### [address] [place] [address] Hair Dryer: Morro Hale MD Albumin [Mass/Vol] 3.4 g/dL Low 3.5-5.2 [facility] Comment on above: Performed By: #### Elliot Marshall CP URI, CDP #### [facility] [address] [place] [address] Hair Dryer: Morro Hale MD Albumin/Glob Ratio 1.2 Normal 1.0-2.5 [facility] Comment on above: Performed By: #### Elliot Marshall CP URI, CDP #### [facility] [address] [place] [address] Hair Dryer: Morro Hale MD Alkaline Phos 98 U/L Normal 35-104 [facility] Comment on above: Performed By: #### L Carla, CP, URI, CDP #### [facility] [address] [place], [place] [id number] Hair Dryer: Morro Hale MD ALT [Catalytic activity/Vol] 10 U/L Normal 5-33 [facility] Comment on above: Performed By: #### L Carla, CP, URI, CDP #### [facility] [address] [place], [place] [id number] Hair Dryer: Morro Hale MD Anion gap [Moles/Vol] 8 mmol/L Low 9-17 [facility] Comment on above: Performed By: #### L Carla, CP, URI, CDP #### [address] [place], [place] [id number] Hair Dryer: Morro Hale MD AST [Catalytic activity/Vol] 13 U/L Normal <32 [facility] Comment on above: Performed By: #### L Carla, YUMIKO, URI, CDP #### [address] [place], [place] [id number] Hair Dryer: Morro Hale MD Bilirubin [Mass/Vol] 0.17 mg/dL Low 0.3-1.2 [facility] Comment on above: Performed By: #### L YUMIKO Marshall, URI, CDP #### [facility] [address] [place] [address] Dr[address] [place], [place] [id number] Hair Dryer: Morro Hale MD BUN/CRE Ratio 21 High 9-20 [facility] Comment on above: Performed By: #### L Carla, YUMIKO, URI, CDP #### [facility] [address] [place] [address] [place] [address] Hair Dryer: Morro Hale MD Calcium [Mass/Vol] 9.1 mg/dL Normal 8.6-10.4 [facility] Comment on above: Performed By: #### L Carla, YUMIKO, URI, CDP #### [facility] [address] [place], [place] 404[address] Hair Dryer: Morro Hale MD Chloride [Moles/Vol] 103 mmol/L Normal 98-107 [facility] Comment on above: Performed By: #### L D, CP, URI, CDP #### [facility] [address] [place], [place] [id number] Hair Dryer: Morro Hale MD CO2 [Moles/Vol] 24 mmol/L Normal 20-31 [facility] Comment on above: Performed By: #### L D, CP, URI, CDP #### [facility] [address] [place], [place] [id number] Hair Dryer: Morro Hale MD Creatinine [Mass/Vol] 0.48 mg/dL Low 0.50-0.90 [facility] Comment on above: Performed By: #### L D, CP, URI, CDP #### [facility] [address] [place], [place] [id number] Hair Dryer: Morro Hale MD GFR, Amer >60 Normal >60 [facility] Comment on above: Performed By: #### L D, CP, URI, CDP #### [facility] [address] [place], [place] [id number] Hair Dryer: Morro Hale MD GFR,non Amer >60 Normal >60 [facility] Comment on above: Performed By: #### L D, CP, URI, CDP #### [facility] [address] [place], [place] 7450983 Hair Dryer: Morro Hale MD Glucose [Mass/Vol] 162 mg/dL High 70-99 [facility] Comment on above: Performed By: #### L D, CP, URI, CDP #### [facility] [address] [place], [place] [id number] Hair Dryer: Morro Hale MD Potassium [Moles/Vol] 3.9 mmol/L Normal 3.7-5.3 [facility] Comment on above: Performed By: #### L D, CP, URI, CDP #### [facility] [address] [place] [address] [place], [place] [id number] Hair Dryer: Morro Hale MD Protein [Mass/Vol] 6.2 g/dL Low 6.4-8.3 [facility] Comment on above: Performed By: #### L D, CP, URI, CDP #### [address] [place], [facility]83 Hair Dryer: Morro Hale MD Sodium [Moles/Vol] 135 mmol/L Normal 135-144 [facility] Comment on above: Performed By: #### L D, CP, URI, CDP #### [address] [place], [facility]83 Hair Dryer: Morro Hale MD Staging: Normal [facility] Comment on above: Result Comment: Stag e 1: Some kidney damage normal GFR Stage 2: Mild kidney damage GFR 60-89 Stage 3: Moderate kidney damage GFR 30-59 Stage 4: Severe kidney damage GFR 15-29 Stage 5: Severe kidney damage GFR <15 ESRD - chronic treatment by dialysis or transplant Performed By: #### L D, CP, URI, CDP #### [facility] [address] [place] [address] Dr[place], [facility]83 Hair Dryer: Morro Hale MD Urea nitrogen [Mass/Vol] 10 mg/dL Normal 6-20 [facility] Comment on above: Performed By: #### L D, CP, URI, CDP #### [address] [place] [address] Hair Dryer: Morro Hale MD Comprehensive Metabolic Pane [facility] 09-16-2021 Albumin [Mass/Vol] 3.4 g/dL Low 3.5 - 5.2 g/dL [facility] Albumin/Globulin [Mass ratio] 1.2 {ratio} [facility] ALP (Bld) [Catalytic activity/Vol] 98 U/L 35 - 104 U/L [facility] ALT [Catalytic activity/Vol] 10 U/L 5 - 33 U/L [facility] Anion gap [Moles/Vol] 8 mmol/L Low 9 - 17 mmol/L [facility] AST [Catalytic activity/Vol] 13 U/L <32 [facility] Bilirubin [Mass/Vol] 0.17 mg/dL Low 0.3 - 1.2 mg/dL [facility] Calcium [Mass/Vol] 9.1 mg/dL 8.6 - 10. 4 mg/dL [facility] Chloride [Moles/Vol] 103 mmol/L 98 - 107 mmol/L [facility] CO2 [Moles/Vol] 24 mmol/L 20 - 31 mmol/L [facility] Creatinine [Mass/Vol] 0.48 mg/dL Low 0.50 - 0.90 mg/dL [facility] Free PSA/Total PSA [Mass fraction] 6.2 g/dL Low 6.4 - 8.3 g/dL [facility] GFR >60 >60 mL/min [facility] GFR Non- >60 >60 mL/min [facility] Glucose [Mass/Vol] 162 mg/dL High 70 - 99 mg/dL [facility] Interpretation and review of laboratory results Abnormal [facility] Potassium [Moles/Vol] 3.9 mmol/L 3.7 - 5.3 mmol/L [facility] Sodium [Moles/Vol] 135 mmol/L 135 - 144 mmol/L [facility] Urea nitrogen (BldV) [Mass/Vol] 10 mg/dL 6 - 20 mg/dL [facility] Urea nitrogen/Creatinine (Bld) [Mass ratio] 21 High [facility] Laboratory - Chemistry and C hemistry - challengeon 09-16-2021 GFR/1.73 sq M.predicted MDRD (S/P/Bld) [Vol rate/Area] [facility] Comment on above: Average GFR for 30-3 9 years old: 107 mL/min/1.73sq m Chronic Kidney Disease: <60 mL/min/1.73sq m Kidney failure: <15 mL/min/1.73sq m eGFR calculated using average adult body mass. Additional eGFR calculator available at: http://www.Shoto.Fighters/multiple_crcl_2012.htm Stage 1: Some kidney damage normal GFR Stage 2: Mild kidney damage GFR 60-89 Stage 3: Moderate kidney damage GFR 30-59 Stage 4: Severe kidney damage GFR 15-29 Stage 5: Severe kidney damage GFR <15 ESRD - chronic treatment by dialysis or transplant Lactate Dehydrogenaseon 09-05 LDH [Catalytic activity/Vol] 174 U/L Normal 135-214 [facility] Comment on above: Performed By: #### L D, CP, URI, CDP #### [facility] [address] [place] [address] Hair Dryer: Morro Hale MD LD 174 U/L 135 - 214 U/L [facility] No Panel Informationon 09-16 [facility] Protein / Creatinine Ratio, Urineon 09-16-2021 Creatinine, Ur 93.8 mg/dL 28.0 - 217.0 mg/dL [facility] Protein (U) [Mass/Vol] 7 mg/dL [facility] Comment on above: No normal range esta blished. Urine Total Protein Creatinine Ratio 0.[address] [facility] Protein,Tot,Todd Uron 2021 Creatinine [Mass/Vol] 93.8 mg/dL Normal 28.0-217.0 [facility] Comment on above: Performed By: #### U RTPRT #### [facility] [address] [place] [address] Hair Dryer: Morro Hale MD Tot Prot. Conc. 7 mg/dL Normal [facility] Comment on above: Result Comment: No n ormal range established. Performed By: #### U RTPRT #### [facility] [address] [place] [address] Hair Dryer: Morro Hale MD TP/Cre Ratio 0.07 Normal 0.00-0.20 [facility] Comment on above: Performed By: #### U RTPRT #### [facility] [address] [place] [address] Hair Dryer: Morro Hale MD Uric Acidon 09-16-2021 Urate [Mass/Vol] 2.8 mg/dL Normal 2.4-5.7 [facility] Comment on above: Performed By: #### L D, CP, URI, CDP #### [facility] [address] [place] [address] Hair Dryer: Morro Hale MD Urate [Mass/Vol] 2.8 mg/dL 2.4 - 5.7 mg/dL [facility] US OB Limitedon 09-07-2021 US OB Limited FINDINGS: Single viable intrauterine . BEN 17.0 cm. Closed cervix 4.3 cm length. Cephalic presentation. IMPRESSION: 1. Single viable intrauterine , cephalic presentation. 2. BEN 17.0 cm. Report reported and signed by Ruben Howell on 09/07/2021 1019 Normal [facility] Wealth Management Director COVID Quick Testingon 2020 Result Negative [facility] [employer] Other Quick Strepon 06-14-2021 S. pyogenes Org specific cx Ql (Throat) Negative [facility] [employer] Other Quick Strep [facility] [employer] Other [facility] 04-19-2021 [facility] Normal [facility] Comment on above: Order Comment: @[facility] Test Name: INHERITEST CARRIER SCREEN [id number] CPT 21233;[id number];[id number] Result Comment: See report. Scanned copy available in EMR. PERFORMED BY: [address] [address] PATHOLOGIST CARBON PAPER MACHINE OPERATOR FILEMON VARGAS M.D. Performed By: #### M [facility] #### [place] [id number] [facility] ABO, External Resulton 03-22 ABO, External Result o [employer] Work Phone: C. Trachomatis, External Res ulton 03-22-2021 C. Trachomatis, External Result Negative [employer] Phone: HIV, External Resulton 03-22 HIV, External Result Non-Reactive [employer] Phone: Hepatitis B, External Result on 03-22-2021 Hep B, External Result Non-Reactive [employer] Phone: N. Gonorrhoeae, External Res ulton 03-22-2021 N. Gonorrhoeae, External Result Negative [employer] Phone: No Panel InformationOrdered By: Nerissa Lerma on 03-22-2021 [employer] No Panel Informationon 03-22 Verified with Jacqueline Manuel RN [employer] Phone: [employer] Phone: RPR, External Labon 03-22-20 21 RPR, External Result Non-Reactive [employer] Phone: Rh Factor, External ResultOr dered By: Nerissa Lerma on 03-22-2021 Rh Factor, External Result + [employer] Rubella Titer, External Resu lton 03-22-2021 Rubella Titer, External Result immune [employer] Phone: Coding Summaryon 04-23-2017 Coding Summary CODING DATE: 017 [facility] STATUS: Home PAYOR: [employer] ADMIT DX: [...] Mccracken Date Saved: 04/23/2017 01:25 pm Normal [facility] ED Clinical Summaryon 2016 ED Clinical Summary [facility] ? Urgent [address] [place] [address] clinical SummaryPERSON INFORMATIONName: SOLANGE BROWER Age: 32 Years Sex: FEMALEDOB: [birth year] MRN: Acct#:Visit Reason: Lower leg pain-swelling; LEFT LEG PAIN AND SWELLING Arrival:04/12/17 12:10:00 Discharge: 04/12/17 12:37:00LOS: 000 00:27 Check In: 04/12/17 12:10:00 Checkout: 04/12/17 12:37:00Address:[address] [place] [address] [facility] [address]CN[facility]: Henry Page INFORMATIONProvider Role Assigned UnassignedBentley Amin PA-C ED PA 04/12/17 12:23:22VITALS INFORMATIONVital Sign Triage LatestTemperature TympanicTemperature Temporal ArteryPulse Rate 97 bpm 97 bpmO2 Sat 98 % 98 %Respiratory Rate 20 br/min 20 br/minBlood Pressure 120 mmHg/90 mmHg 120 mmHg/90 mmHgMEDICAL INFORMATIONMedications Given:Allergy Information:PHYSICIAN DOCUMENTATIONDISCHARGE INFORMATION:Discharge Disposition: HomeDischarge Location: HomePATIENT EDUCATION INFORMATIONInstructions: Muscle Strain, Tqgg-kq-PknpLopvfh-Up:With: Address: When:Rober Loya [address] [place] [address], [place], [phone] Business (2) Within 3 to 5 days, only if neededWith: Address: When:Edward Page [address] [place] [address] Business (1) Within 3 to 5 daysDIAGNOSIS:Muscle strain of lower legComment: Normal [facility] ED Note - Physicianon 2016 ED Note - Physician Patient: NILTON BROWER : 32 years Sex: FEMALE : [birth year]Associated Diagnoses: Muscle strain of lower legAuthor: Bentley AminCHistory of Present IllnessThis is a 32 year old here today with concerns of feeling a pop in her calf while bending over 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 [...] mmHg SpO2 98 % O2 Flow 0 L/min.Pdizpgxeshex34/06/17 12:15 EDT Height/Length Dosing 157.4 cm Weight [...] ice and elevate. OTC Motrin for pain, Anderson as needed for severe pain. Return with new, or worsening symptoms, or symptoms failing to improve as expected and the patient voiced their understanding. Questions answered. Follow-up with their family doctor as directed, return here sooner as needed. See ortho as needed.Impression and PlanDiagnosisMuscle strain of lower leg ([id number]-ZU S86.919A, Discharge, Medical)PlanCondition: Stable.Disposition: Discharged: Time 04/12/17 12:36:00, to home.Prescriptions: Launch prescriptionsPharmacy:[facility] 5 mg-325 mg oral tablet (Prescribe): 1 tab(s), PO, q6hr, for 3 day(s), PRN: for pain, 12 tab(s), 0 Refill(s).Patient was given the following educational materials: Muscle Strain, Mjbq-wn-Yzfd, Muscle Strain, Ibch-fu-Fqmf.Follow up with: Edward Page Within 3 to [...] on: 04/12/2017 12:51 EDT] Bentley Amin PA-C [facility] ED Patient Summaryon 017 ED Patient Summary [facility] ? Urgent [address] [place] [address] pATIENT DISCHARGE INSTRUCTIONSPatient InformationName: SOLANGE BROWER Age: 32 YearsDate of : [birth year]MRN: [id number] For Visit: Lower leg pain-swelling; LEFT LEG PAIN AND SWELLINGArrival Time: 04/12/17 12:10:00Phone: Primary Care Physician: Edward PageAttending Physician: Bentley Amin-CComment:Patient EducationWith: Address: When:Rober Loya [address] [place] [address], [address] [place], [phone] Business (2) Within 3 to 5 days, only if neededWith: Address: When:Edward Page [address] [place] [phone] Business (1) Within 3 to 5 daysMuscle [...] Reviewed: 01/21/2014Luz Maria Interactive Patient Education ?2016 [employer].Medication Information:The exam and treatment you received today in the [facility] Emergency Department were for an urgent problem and are not intended as complete care. It is important for you to follow up with a doctor, nurse practitioner, or physician?s physical laboratory assistant for ongoing care. If your symptoms [...] number so we can reach you if necessary.[facility] has provided you with a complete list of medications post discharge. Please inform your database programmer analyst/provider of your visit and for further instruction on these medications. Any specific questions regarding your chronic medications and dosages should be discussed with your primary care physician(s) and/or pharmacist. New MedicationsPrinted Prescriptionsacetaminophen-h ydrocodone (Anderson 5 mg-325 mg oral tablet) 1 tab(s) Oral Every 6 hours as needed for pain for 3 Days. Refills: 0.Visit InformationVisit Diagnosis:Diagnoses This Visit Lower leg pain-swelling ([id number]) Muscle strain of lower leg (S86.910E)If you received any narcotics, sedation, or any [...] Disease Control and Prevention March 2014 Normal [facility] [place] 017 Urgent Care Record [facility] ? Urgent [address] [place] [address] pATIENT DISCHARGE INSTRUCTIONSPatient InformationName: SOLANGE BROWER Age: 32 YearsDate of : [birth year]MRN: [id number] For Visit: Lower leg pain-swelling; LEFT LEG PAIN AND SWELLINGArrival Time: 04/12/17 12:10:00Phone: Primary Care Physician: Edward PageAttending Physician: Bentley Amin-CComment:Visit Diagnosis:Diagnoses This Visit Lower leg pain-swelling ([id number]) Muscle strain of lower leg (S86.251V)If you received any narcotics, sedation, or any [...] sign any legal documentsWith: Address: When:Rober Loya [address] [place] [address], [facility] [address] [place], [phone] Business (2) Within 3 to 5 days, only if neededWith: Address: When:Edward Page [address] [place] [address] Business (1) Within 3 to 5 daysMedication Information:The exam and treatment you received today in the [facility] were for an urgent problem and are not intended as complete care. It is important for you to follow up with a doctor, nurse practitioner, or physician?s physical laboratory assistant for ongoing care. If your symptoms [...] number so we can reach you if necessary.[facility] has provided you with a complete list of medications post discharge. Please inform your database programmer analyst/provider of your visit and for further instruction on these medications. Any specific questions regarding your chronic medications and dosages should be discussed with your primary care physician(s) and/or pharmacist. New MedicationsPrinted Prescriptionsacetaminophen-h ydrocodone (Anderson 5 mg-325 mg oral tablet) 1 tab(s) [...] Reviewed: 01/21/2014Luz Maria Interactive Patient Education ?2016 [employer]. Viruses or BacteriaWhat?s got you sick?Antibiotics only [...] for Disease Control and Prevention March 2014 [facility] Vital Signs Date Time Vital Sign Value Performing Clinician Facility 10-14-2021 07:24-0400 Body temperature 97.39 [degF] Bryanna [place] MANAGER HRIS - CNM Work Phone: [facility] 10-14-2021 07:24-0400 Diastolic blood pressure 75 mm[Hg] Bryanna [place] MANAGER HRIS - CNM Work Phone: [facility] 10-14-2021 07:24-0400 Heart rate 67 /min [facility] MANAGER HRIS - CNM Work Phone: [facility] 10-14-2021 07:24-0400 Respiratory rate 16 /min Bryanna Pool MANAGER HRIS - CNM Work Phone: [facility] 10-14-2021 07:24-0400 Systolic blood pressure 119 mm[Hg] Bryanna [place] MANAGER HRIS - CNM Work Phone: [facility] 10-13-2021 06:01-0400 SaO2% (BldA) [Mass fraction] 96 % Bryanna Pool MANAGER HRIS - CNM Work Phone: [facility] 10-12-2021 10:22-0400 Body mass index (BMI) [Ratio] 52.13 kg/m2 Bryanna Pool MANAGER HRIS - CNM Work Phone: [employer] 10-12-2021 10:22-0400 Body weight 129.28 kg Bryanna Pool MANAGER HRIS - CNM Work Phone: [employer] 10-07-2021 14:56-0400 Diastolic blood pressure 64 mm[Hg] Dianne Floro MANAGER HRIS - CNM Work Phone: [employer] 10-07-2021 14:56-0400 Heart rate 76 /min Dianne Rosaleso MANAGER HRIS - CNM Work Phone: [employer] 10-07-2021 14:56-0400 Systolic blood pressure 123 mm[Hg] Dianne Floro MANAGER HRIS - CNM Work Phone: [employer] 10-07-2021 14:23-0400 Respiratory rate 18 /min Dianne Rosaleso MANAGER HRIS - CNM Work Phone: [employer] 09-30-2021 14:03-0400 Body height 157.5 cm Dianne Rosaleso MANAGER HRIS - CNM Work Phone: [employer] 09-30-2021 14:03-0400 Body mass index (BMI) [Ratio] 51.58 kg/m2 Dianne Rosaleso MANAGER HRIS - CNM Work Phone: [employer] 09-30-2021 14:03-0400 Body temperature 98.01 [degF] Dianne Floro MANAGER HRIS - CNM Work Phone: [employer] 09-30-2021 14:03-0400 Body weight 127.91 kg Dianne Rosaleso MANAGER HRIS - CNM Work Phone: [employer] 09-23-2021 15:35-0400 Body temperature 98.2 [degF] Dianne Connieo MANAGER HRIS - CNM Work Phone: [employer] 09-23-2021 15:35-0400 Diastolic blood pressure 73 mm[Hg] Dianne Floro MANAGER HRIS - CNM Work Phone: [employer] 09-23-2021 15:35-0400 Heart rate 96 /min Dianne Dang MANAGER HRIS - CNM Work Phone: [employer] 09-23-2021 15:35-0400 Respiratory rate 18 /min Dianne Dang MANAGER HRIS - CNM Work Phone: [facility] 09-23-2021 15:35-0400 Systolic blood pressure 118 mm[Hg] Dianne Dang MANAGER HRIS - CNM Work Phone: [facility] 09-16-2021 15:59-0500 Diastolic blood pressure 72 mm[Hg] Dianne Dang MANAGER HRIS - CNM Work Phone: [facility] [employer] 09-16-2021 15:59-0500 Heart rate 77 /min Dianne Dang MANAGER HRIS - CNM Work Phone: [facility] 09-16-2021 15:59-0500 Systolic blood pressure 141 mm[Hg] Dianne Dang MANAGER HRIS - CNM Work Phone: [facility] 09-16-2021 14:25-0500 Body height 157.5 cm Dianne Dang MANAGER HRIS - CNM Work Phone: [facility] [employer] 09-16-2021 14:25-0500 Body mass index (BMI) [Ratio] 49.38 kg/m2 Dianne Dang MANAGER HRIS - CNM Work Phone: [facility] [employer] 09-16-2021 14:25-0500 Body temperature 97.81 [degF] Dianne Dang MANAGER HRIS - CNM Work Phone: [facility] 09-16-2021 14:25-0500 Body weight 122.47 kg Dianne Dang MANAGER HRIS - CNM Work Phone: [facility] [employer] 09-16-2021 14:25-0500 Respiratory rate 16 /min Dianne Dang MANAGER HRIS - CNM Work Phone: [facility] 09-09-2021 14:06-0500 Diastolic blood pressure 68 mm[Hg] Dianne Dang APRN - CNM Work Phone: [facility] 09-09-2021 14:06-0500 Heart rate 78 /min Dianne Dang MANAGER HRIS - CNM Work Phone: [facility] [employer] 09-09-2021 14:06-0500 Systolic blood pressure 124 mm[Hg] Dianne Dang APRN - CNM Work Phone: [facility] 09-09-2021 14:04-0500 Body height 158.8 cm Dianne Dang APRN - CNM Work Phone: [facility] 09-09-2021 14:04-0500 Body mass index (BMI) [Ratio] 49.5 kg/m2 Dianne Dang MANAGER HRIS - CNM Work Phone: [facility] 09-09-2021 14:04-0500 Body temperature 98.01 [degF] Dianne Dang MANAGER HRIS - CNM Work Phone: [facility] 09-09-2021 14:04-0500 Body weight 124.74 kg Dianne Dang APRN - CNM Work Phone: [facility] 09-09-2021 14:04-0500 Respiratory rate 18 /min Dianne Dang MANAGER HRIS - CNM Work Phone: [facility] 06-14-2021 15:00-0500 Body height 157.48 cm Margie Fish Other [facility] Other 06-14-2021 15:00-0500 Body mass index (BMI) [Ratio] 45.72 kg/m2 Margie Fish Other [facility] Other 06-14-2021 15:00-0500 Body temperature 98.3 [degF] Margie Fish Other [facility] Other 06-14-2021 15:00-0500 Body weight 113.4 kg Margie Fish Other [facility] Other 06-14-2021 15:00-0500 Respiratory rate 18 /min Margie Fish Other [facility] Other 06-14-2021 15:00-0500 SaO2% (BldA) [Mass fraction] 98 % Margie Fish Other [facility] Other Encounters Encounter Date Encounter Type Care Provider Facility Start: 12-18-2023 ambulatory EDWARD PAGE [facility] Start: 12-17-2023 Emergency department patient visit EDWARD PAGE [facility] Start: 05-03-2023 End: 05-03-2023 ambulatory Edward Page Other [facility] Other Start: 05-03-2023 Office outpatient vi sit 15 minutes Edward Ball [facility] Start: 04-23-2023 End: 04-23-2023 ambulatory Edward Ball Other [facility] Other Start: 04-23-2023 Telephone encounter Edward Ball [facility] Start: 04-22-2023 End: 04-22-2023 ambulatory Edward Ball Other [facility] Other Start: 04-22-2023 Telephone encounter Edward Ball [facility] Start: 04-09-2023 End: 04-09-2023 ambulatory Edward Ball Other [facility] Other Start: 04-09-2023 Office outpatient vi sit 15 minutes Edward Ball [facility] Start: 09-20-2022 End: 09-20-2022 ambulatory Edward Ball Other [facility] Other Start: 09-20-2022 Telephone encounter Edward HAJI G [facility] Start: 08-29-2022 End: 08-29-2022 ambulatory Edward Page Other [facility] [employer] Other Start: 08-29-2022 Office outpatient vi sit 15 minutes Edward Page [facility] Start: 08-17-2022 Telephone encounter Edward HAJI G [facility] Start: 08-17-2022 End: 08-18-[address] EDWARD PAGE Facility:[facility] Start: 08-17-2022 End: 08-18-2022 ambulatory BERTO ZMIMERMAN Facility:[facility] Start: 10-12-2021 End: 10-14-2021 Evaluation and management of inpatient BRYANNA E [facility] Start: 10-12-2021 End: 10-14-2021 Evaluation and management of inpatient Bryanna E [facility] CN Work Phone: [facility] Labor and Delivery Comment on above: Born by sec tion (Primary Dx) Start: 10-07-2021 End: 10-07-2021 ambulatory [facility] Start: 10-07-2021 End: 10-07-2021 Subsequent hospital visit by physician Dianne Clark CNM Work Phone: [facility] Labor and Delivery Comment on above: Diet controlled gest ational diabetes mellitus (GDM) in third trimester Start: 09-30-2021 End: 09-30-2021 ambulatory [facility] Start: 09-30-2021 End: 09-30-2021 Subsequent hospital visit by physician Dianne Clark CNM Work Phone: [facility] Start: 09-23-2021 End: 09-23-2021 ambulatory [facility] Start: 09-23-2021 End: 09-23-2021 Subsequent hospital visit by physician Dianne Clark CNM Work Phone: [facility] Labor [facility] Delivery Comment on above: Diet controlled gest ational diabetes mellitus (GDM) in third trimester Start: 09-16-2021 End: 09-16-2021 ambulatory DIANNE JAD [facility] Start: 09-16-2021 End: 09-16-2021 Subsequent hospital visit by physician Dianne Dang APRN - CNM Work Phone: [facility] Labor and Delivery Comment on above: Diet controlled gest ational diabetes mellitus (GDM) in third trimester Start: 09-09-2021 End: 09-09-2021 ambulatory DIANNE JAD [facility] Start: 09-09-2021 End: 09-09-2021 Subsequent hospital visit by physician Dianne Dang APRN - CNM Work Phone: [facility] Labor and Delivery Comment on above: Diet controlled gest ational diabetes mellitus (GDM) in third trimester Start: 09-02-2021 End: 09-02-2021 ambulatory DIANNE [facility] Start: 06-14-2021 (URG) Urgent Care Visit Margie marshall [facility] Jose Angel Start: 06-14-2021 End: 06-14-2021 ambulatory Margie Fish Other [facility] Other Start: 04-12-2017 End: 04-12-2017 [facility]ulatory [facility] Facility[facility] Procedures Date Procedure Procedure Detail Performing Clinician Start: 10-14-2021 GLUCOSE, WHOLE BLOOD Zoila Rosaleso MANAGER HRIS - CNM Work Phone: Start: 10-13-2021 GLUCOSE, WHOLE BLOOD Zoila Rosaleso MANAGER HRIS - CNM Work Phone: Start: 10-13-2021 GLUCOSE, WHOLE BLOOD Va tyler Rosaleso MANAGER HRIS - CNM Work Phone: Start: 10-13-2021 GLUCOSE, WHOLE BLOOD Va tyler Rosaleso MANAGER HRIS - CNM Work Phone: Start: 10-13-2021 Assay of magnesium Mendy Dang MANAGER HRIS - CNM Work Phone: Start: 10-13-2021 Blood count hemoglobin Dianne Dang MANAGER HRIS - CNM Work Phone: Start: 10-13-2021 GLUCOSE, WHOLE BLOOD Zoila Dang MANAGER HRIS - CNM Work Phone: Start: 10-13-2021 Assay of magnesium Mendy Dang MANAGER HRIS - CNM Work Phone: Start: 10-12-2021 GLUCOSE, WHOLE BLOOD Zoila Dang MANAGER HRIS - CNM Work Phone: Start: 10-12-2021 GLUCOSE, WHOLE BLOOD Zoila Dang MANAGER HRIS - CNM Work Phone: Start: 10-12-2021 GLUCOSE, WHOLE BLOOD Zoila Dang MANAGER HRIS - CNM Work Phone: Start: 10-12-2021 Antibody screen Eveline nazario Pool MANAGER HRIS - CNM Work Phone: Start: 10-12-2021 Blood typing serologic abo Bryanna Barth MANAGER HRIS - CNM Work Phone: Start: 10-12-2021 End: 10-12-2021 Comprehensive metabolic panel Bryanna Barth MANAGER HRIS - CNM Work Phone: Start: 10-12-2021 Drug screen class list a Bryanna Armijo Pool MANAGER HRIS - CNM Work Phone: Start: 10-12-2021 Urnls dip stick/tabl et rgnt auto w/o microscopy Bryanna E Pool MANAGER HRIS - CNM Work Phone: Start: 10-07-2021 nonstress test Zoila Dang MANAGER HRIS - CNM Work Phone: Start: 09-26-2021 GBS, EXTERNAL RESULT Derick Purvis MD Start: 09-16-2021 End: 09-16-2021 Comprehensive metabolic panel Ai Burnham MANAGER HRIS - CNM Work Phone: Start: 09-16-2021 nonstress test Zoila Dang MANAGER HRIS - CNM Work Phone: Start: 03-22-2021 ABO, EXTERNAL RESULT Derick Purvis MD Start: 03-22-2021 C. TRACHOMATIS, EXTE RNAL RESULT Historical Provider Start: 03-22-2021 HEPATITIS B, EXTERNA L RESULT Historical Provider Start: 03-22-2021 HIV, EXTERNAL RESULT Hi debical Provider Start: 03-22-2021 N. GONORRHOEAE, EXTE RNAL RESULT Historical Provider Start: 03-22-2021 RH FACTOR, EXTERNAL RESULT Historical Provider Start: 03-22-2021 RPR, EXTERNAL RESULT Hi debical Provider Start: 03-22-2021 RUBELLA TITER, EXTER NAL RESULT Historical Provider MD Plan of Treatment Date Care Activity Detail Author Start: 07-30-2028 DTaP/Tdap/Td vaccine (7 - Td or Tdap) DTaP/Tdap/Td vaccine (7 - Td or Tdap) [facility] Start: 10-12-2022 Creatinine measurement Creatinine mo nitoring [facility] Start: 10-12-2022 Potassium monitoring Potassium monit oring [facility] Start: 03-08-2022 Influenza vaccination Flu vacc ine (Season Ended) [facility] Start: 01-11-2022 Hemoglobin A1c measurement A1C test (Diabetic or Prediabetic) [facility] Start: 10-21-2021 End: 10-21-2021 Patient encounter procedure 10/21/2021 Appointment IP Unit [facility] OP LD Start: 10-18-2021 Subsequent hospital visit by physician 10/18/2021 Hospital Encounter Obstetrics and Gynecology Dianne Dang, ESTHER - ELINOR [address] [place] [address] [facility] Labor and Delivery Start: 10-17-2021 End: 10-17-2021 [...] LD Start: 2021 Diabetes screen Diabetes screen [facility] Start: 03-08-2021 Influenza vaccination Flu vaccine (# 1) [facility] Start: 2016 [facility] Start: 2007 Screening for malign ant neoplasm of cervix [facility] Start: 2001 [facility] Start: 1998 Depression Screen [facility] Start: 1991 COVID-19 Vaccine (1) COVID-19 Vaccin e (1) [facility] Start: 1987 Varicella vaccine (1 of 2 - 2-dose childhood series) Varicella vaccine (1 of 2 - 2-dose childhood series) [facility] Start: 1986 Hepatitis C screening Hepatitis C sc reen [facility] End: 09-09-2021 nonstress test [employer] Phone: Comment on above: 1 Occurrences starti ng 09/09/2021 until 09/09/2021 As Needed for 8 Occu rrences starting 09/09/2021 End: 09-23-2021 nonstress test nonstress test OB Routine Diet controlled gestational diabetes mellitus (GDM) in third trimester 1 Occurrences starting 09/23/2021 until 09/23/2021 [employer] Phone: Comment on above: 1 Occurrences starti ng 09/23/2021 until 09/23/2021 End: 10-13-2021 Glucose [Mass/volume] in Serum or Plasma Glucose, Random Lab Timed Tomorrow AM for 1 Occurrences starting 10/13/2021 until 10/13/2021 [employer] Phone: Comment on above: Tomorrow AM for 1 Oc currences starting 10/13/2021 until 10/13/2021 Glucose [Mass/volume ] in Serum or Plasma [employer] Phone: Comment on above: 4X Daily (AC & HS) u ntil discontinued starting 10/12/2021 As Needed until disc ontinued starting 10/12/2021 End: 10-19-2021 Magnesium [Mass/volume] in Serum or Plasma Magnesium Lab Routine Every 6 Hours (Lab) for 7 Days starting 10/12/2021 until 10/19/2021, 3 completed [employer] Phone: Comment on above: Every 6 Hours (Lab) for 7 Days starting 10/12/2021 until 10/19/2021, 3 completed Nonrebreather mask oxygen Nonrebreather mask oxygen Respiratory Care Routine As directed - RT (PRN) until discontinued starting 10/12/2021 [employer] Phone: Comment on above: As directed - RT ([place] N) until discontinued starting 10/12/2021 Oxygen therapy [[facility] Data Set] Initiate Oxygen Therapy Protocol Respiratory Care Routine As Needed until discontinued starting 10/12/2021 [employer] Phone: Comment on above: As Needed until disc ontinued starting 10/12/2021 Spirometry panel Incentive itz metry Respiratory Care Routine Every 2hr while awake until discontinued starting 10/12/2021 [employer] Phone: Comment on above: Every 2hr while awak e until discontinued starting 10/12/2021 End: 10-12-2021 Surgical Pathology Surgical Pathology Lab Routine One Time for 1 Occurrences starting 10/12/2021 until 10/12/2021 [employer] Phone: Comment on above: One Time for 1 Occur rences starting 10/12/2021 until 10/12/2021 End: 10-12-2021 SURGICAL PATHOLOGY REPORT SURGICAL PATHOLOGY REPORT Lab Routine Once for 1 Occurrences starting 10/12/2021 until 10/12/2021 [employer] Phone: Comment on above: Once for 1 Occurrenc es starting 10/12/2021 until 10/12/2021 End: 10-13-2021 SURGICAL PATHOLOGY REPORT SURGICAL PATHOLOGY REPORT Lab Routine Once for 1 Occurrences starting 10/13/2021 until 10/13/2021 [employer] Phone: Comment on above: Once for 1 Occurrenc es starting 10/13/2021 until 10/13/2021 Immunizations Immunization Date Immunization Notes Care Provider Campos beasley 10-12-2021 diphtheria, tetanus toxoids and acellular pertussis vaccine, unspecified formulation Bryanna [employer] MANAGER HRIS - CN Work Phone: [facility] Work Phone: 10-12-2021 measles, mumps and rubella virus vaccine Bryanna Pool MANAGER HRIS - [facility] Work Phone: [facility] [facility] Work Phone: Payers Date Payer Category Payer Unknown [id number] 1985 Unknown [id number] 2.16.8 [id number] 1986 Unknown [id number] 2.16.8 [id number] 1986 Unknown [id number] 2.16.8 [id number] 1986 Unknown [id number] 2.16.8 [id number] 1986 Unknown [id number] 2.16.8 [id number] 1986 Unknown [id number] 2.16.8 [id number] 1986 Unknown [id number] 2.16.8 [id number] 1986 Unknown [id number] 2.16.84 [id number] 1986 Unknown [id number] 2.16.84 [id number] 1986 Unknown [id number] 2.16.8 [id number] 1986 Unknown [id number] 2.16.8 [id number] 1986 Unknown [id number] 2.16.8 [id number] 1986 Unknown [id number] 2.16.8 [id number] 1986 Unknown [id number] 2.16.8 [id number] 1986 Unknown [id number] 2.16.8 [id number] 1959 Private Health Insurance [id number] Social History Date Type Detail Facility Start: 04-19-2021 Tobacco smoking status NHIS Never smoked tobacco [facility] Other Start: 04-19-2021 Tobacco use and exposure Smokeless tobacco non-user [employer] Phone: Start: 09-09-2021 End: 10-12-2021 Alcohol intake Ex-drinker (finding) [employer] Phone: Start: 01-31-2021 [employer] Phone: Start: 1985 Sex Assigned At Not on file [employer] Phone: Start: 09-13-2021 End: 10-12-2021 Exposure to SARS-CoV-2 (event) Not sure [facility] Sex Assigned At Sex Assigned At [facility] Other Clinical Notes 06-14-2021 to 05-03-2023 Note [...] disorder, 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) [facility] Other 10-16-2023 Evaluation note* Encounter Date Diagnosis Assessment Notes Treatment Notes Treatment Clinical Notes Apr, Mild episode of recurrent major depressive disorder (ICD-10 - F33.0) [facility] Other 10-03-2023 Evaluation note* Encounter Date Diagnosis [...] Treat underlying condition and insomnia should improve [facility] Other 02-22-2023 Evaluation note* Encounter Date Diagnosis Assessment Notes Treatment Notes Treatment Clinical Notes Aug, Pharyngitis due to Streptococcus species (ICD-10 - J02.0) Gargle w/ salt water, tylenol and rest [facility] Other 04-09-2022 History of Present illness Narrative* ESTHER Alejandre CNM - 10/14/2021 8:56 AM EDT C/S [...] dressing in place, clean, dry and intact, MARYK AY dressing intact GENITAL/URINARY: External Genitalia: General appearance; [...] Message received from ADELA Caceres who is circulation supervisor today that my patient has arrived to the unitand she has elevated blood pressures. Hypertension protocol being started and Dr Panda would like to proceed with her repeat section soon. 0955 this write leaves my office and enroute to [place], [facility] Phone: [phone]) 375-445503-19-2022 History of Present illness Narrative* Shanel Raymundo RN - 09/23/2021 3:40 PM EDT Pt here for scheduled NST. Pt states she is insulin controlled gestational diabetic and sees [facility] attir satellite office. Pt reports + movement today. Pt denies vaginal bleeding or leaking offluid. Pt states that she sometimes has back pain if she stands for too long, pt denies pain currently. Pt denies pain or burning when urinating. Pt denies headache or blurred vision. marker button given. documented [facility] Phone: [phone] 194-895512-08-2021 Evaluation note* Encounter Date Diagnosis Assessment Notes [...] Patient care instructions given in writting by [facility] Care At Home document. [facility] Other Evaluation note* Diagnosis Diet controlled gestational diabetes mellitus (GDM) in third trimester documented in this encounter [employer] Phone: [email or web address] note* Diagnosis Diet controlled gestational diabetes mellitus (GDM) in third trimester documented in this encounter [employer] Phone: [email or web address] note* Diagnosis Diet controlled gestational diabetes mellitus (GDM) in third trimester documented in this encounter [employer] Phone: [email or web address] note* Diagnosis Diet controlled gestational diabetes mellitus (GDM) in third trimester documented in this encounter [employer] Phone: [email or web address] note* Diagnosis Abdominal pain- Primary Abdominal pain, unspecified site Born by section Hypertension affecting in first trimester Hypertension affecting in third trimester documented in this encounter [employer] Phone: [email or web address] noteNo InformationNortMOMENTFACE SRO Other History general Narrative - Reported* Type Description Date Medical History anxiety Surgical History back surgery Surgical History tonsillectomy Surgical History C section Surgical History PE tubes Surgical History adnoidectomy Hospitalization History child [facility] Other Hiszhkm general Narrative - Reported* Type Description Date [...] Hospitalization History child Hospitalization History SEE SURGICAL HX [facility] Other Hisefyt general Narrative - Reported* Type Description Date [...] Hospitalization History child Hospitalization History SEE SURGICAL HX [facility] Other Hospital Discharge instructions* Attachments The following attachments cannot be sent through Care Everywhere. * Section: Post-op (Australian) * (Australian) * Video: Caring for Yourself After Delivery (Australian) * : Exercises (Australian) * Depression: (Australian) * Parenting: Stress and Infants (Australian) documented [facility] Phone: Summary Purpose Family History No Family History Records FoundNo Family History Records FoundNo Family History Records FoundNo Family History Records FoundNo Family History Records FoundNo Family History Records FoundNo Family History Records Found Advance Directives No Advanced Directives Records FoundLatest Code Status on File Code Status Date Activated Date Inactivated Comments Full Code 10/12/2021 9:23 AM 10/12/2021 1:23 PM Additional Source Comments INFORMATION SOURCE (unrecogn ized section and content) DATE CREATED AUTHOR 12/31/2017 [facility] DATE CREATED AUTHOR AUTHOR'S ORGANIZ ATION 05/15/2021 [facility] DATE CREATED AUTHOR AUTHOR'S ORGANIZ ATION 06/21/2021 [facility] DATE CREATED AUTHOR AUTHOR'S ORGANIZ ATION 09/27/2021 [facility] dical Specialist DATE CREATED AUTHOR AUTHOR'S ORGANIZ ATION 10/16/2021 [facility] DATE CREATED AUTHOR AUTHOR'S ORGANIZ ATION 08/28/2022 [facility] DATE CREATED AUTHOR AUTHOR'S ORGANIZ ATION 12/19/2023 [facility] Reason for Visit (unrecogniz ed section and content) Reason Comments Non-stress Test Reason Comments Abdominal Pain Specialty Diagnoses / Procedures Referred By Leila virgen Referred To Contact Diagnoses Abdominal pain Hypertension affecting in first trimester Hypertension affecting in third trimester Bryanna Barth APRN - ALFRED[place] [address] [facility] [address] [place] [address] [facility] [address] [place] [address] Referral ID Status Reason Start Date Expiration Date Visits Re quested Visits Authorized 1 1 Care Teams (unrecognized sec tion and content) Medical Office Supervisor Relationship Specialty Start Date End Date Edward Page, DO [address] [place] [address] PCP - General Internal Medicine 06/21/21 Medical Office Supervisor Relationship Specialty Start Date End Date Edward Page, DO [address] [place] [address] PCP - General Internal Medicine 06/21/21 Medical Office Supervisor Relationship Specialty Start Date End Date Edward Page, DO [address] [place] [address] PCP - General Internal Medicine 06/21/21 Medical Office Supervisor Relationship Specialty Start Date End Date Edward Page, DO [address] [place] [address] PCP - General Internal Medicine 06/21/21 Medical Office Supervisor Relationship Specialty Start Date End Date Edward Page, DO [address] [place] [address] PCP - General Internal Medicine 06/21/21 Medical Office Supervisor Relationship Specialty Start Date End Date Edward Page, DO [address] [place] [address] PCP - General Internal Medicine 06/21/21 Ordered [...] Provider: Milla Davis RN)1101 (Stopped - Provider: Ruben Mccabe APRN - RIPSAW MATCHER) docusate sodium (COLACE) capsule 100 mg 100 mg, Oral, 2 TIMES DAILY, First dose on Sat10/12/21 at 1345, Until Discontinued, Do not crush or break., 1410 (Given - Provider: Milla Davis, SHANON)2151 (Given - Provider: Lilo Kulkarni, RN) 0807 (Given - Provider: Nohemy Nuñez, SHANON)2047 (Given - Provider: Elif Prince, RN) 0930 (Given - Provider: Leda Glez, SHANON)2100 (Due) enoxaparin (LOVENOX) injection 60 mg 60 mg, SubCUTAneous, EVERY 24 HOURS, First dose on Sat10/13/21 at 0130, Until Discontinued, 0112 (Given - Provider: Lilo Kulkarni RN) 0151 (Given - Provider: Elif Prince RN) famotidine (PEPCID) 20 mg in sodium chloride (PF) 10 mL injection (COMPLETED) 20 mg, IntraVENous, ONCE, 1 dose, On Sat10/12/21 at 1045, Give 60 minutes before surgery., Labor and Delivery 1100 (Given - Provider: Milla Davis RN) gentamicin (GARAMYCIN) 500 mg in dextrose 5 % 250 mL IVPB (COMPLETED) 500 mg, IntraVENous, ONCE, 1 dose, On Sat10/12/21 at 1045, Antimicrobial Indications: Surgical Prophylaxis 1128 (New Bag - Provider: Ruben Mccabe APRN - RIPSAW MATCHER - Comment: given over 60 minutes.) ibuprofen (ADVIL;MOTRIN) tablet 800 mg 800 mg, Oral, EVERY 8 HOURS, First dose on Sat10/13/21 at 1830, Until Discontinued, Do not start till 6 hours after last dose of toradol. Do not crush or break., Post-op 1804 (Given - Provider: Leda Glez, SHANON) 0151 (Given - Provider: Elif Prnice, SHANON)1031 (Given - Provider: Leda Glez RN)1830 (Due) [...] 6 HOURS, 4 doses, First dose on Sat10/12/21 at 1830, Last dose on Sat10/13/21 at 1230, Do not administer for more than 5 days., 1833 (Given - Provider: Milla Davis RN) 0111 (Given - Provider: Lilo Kulkarni RN)0625 (Given - Provider: Lilo Kulkarni RN)1126 (Given - Provider: Nohemy Nuñez RN) labetalol (NORMODYNE) tablet 200 mg 200 mg, Oral, EVERY 8 HOURS SCHEDULED (3 times per day), 9 doses, First dose on Denisha 10/12/21 at 1400, Last dose on Grady 10/15/21 at 0600 1409 (Given - Provider: Milla Davis RN)2151 (Given - Provider: Lilo Kulkarni RN) 0625 (Given - Provider: Lilo Kulkarni RN)1445 (Given - Provider: Leda Glez RN)2240 (Given - Provider: Elif Prince RN) 0600 [...] not met) 1128 (Stopped - Provider: Leda Glez RN) magnesium sulfate 4000 mg in 100 mL [...] mg 1025 (New Bag - Provider: Milla Davis, SHANON)1057 (Stopped - Provider: Milla Davis RN) metoclopramide [...] 10/14/21 at 1400, Antimicrobial Indications: Surgical Prophylaxis 215 (Given - Provider: Lilo Kulkarni RN) 0625 (Given - Provider: Lilo Kulkarni, SHANON)1445 (Given - Provider: Leda Glez, RN)2239 (Given - Provider: Elif Prince RN - Comment: Pt request) 0600 (Due)1400 (Due) vitamin 27-1 MG tablet 1 tablet 1 tablet, Oral, DAILY, First dose on Denisha 10/12/21 at 1345, Until Discontinued, Begin when normal bowel activity resumes., 1701 (Not Given - Provider: Milla Davis RN - Reason: Other) 0807 (Given - Provider: Nohemy Nuñez, SHANON) 0930 (Given - Provider: Leda Glez, RN) sodium chloride flush 0.9 % injection 10 mL 10 mL, IntraVENous, EVERY 12 HOURS SCHEDULED (2 times per day), First dose on Denisha 10/12/21 at 2100, Until Discontinued, 215 (Not Given - Provider: Lilo Kulkarni RN - Reason: IV Fluid Infusing) 0846 (Not Given - Provider: Nohemy Nuñez RN - Reason: Order parameters not met - Comment: IV infusing)2100 (Due) 1012 (Not Given - Provider: Leda Glez, SHANON - Reason: Other - Comment: IV removed)2100 (Due) dpxhmch-zenzvp-mbzbq pertussis (BOOSTRIX) injection 0.5 mL 0.5 mL, [...] (NoRateChange - Provider: Ruben Mccabe APRN - [employer]SAW MATCHER) lactated ringers infusion IntraVENous, at 50 mL/hr, CONTINUOUS, Starting on Denisha 10/12/21 at 1345, 1256 (Rate/Dose Change - Provider: Milla Davis RN)2150 (Rate/Dose Change - Provider: Lilo Kulkarni RN)2245 (Rate/Dose Change - Provider: Lilo Kulkarni RN) 0522 (Rate/Dose Change - Provider: Lilo Kulkarni RN) 1127 (Stopped - Provider: Leda Glez RN) magnesium sulfate (08932 mg/500mL infusion) (CANCELED) 2,000 mg/hr (50 mL/hr), [...] (NoRateChange - Provider: Ruben Mccabe APRN - [employer]SAW MATCHER) magnesium sulfate (07379 mg/500mL infusion) () 1,000 mg/hr (25 mL/hr), IntraVENous, CONTINUOUS, Starting on Denisha 10/12/21 at 2200, Until Sat10/13/21 at 1159, 1000 mg = 1 gram; 2000 mg = 2 grams; 20,000 mg = 20 grams 2149 (New Bag - Provider: Lilo Kulkarni, SHANON) 0521 (Rate/Dose Change - Provider: Lilo Kulkarni [...] 1700 (Given - Provider: Milla Davis RN) 104 (Given - Provider: Nohemy Nuñez RN)2046 (Given - Provider: Elif Prince, RN) oxyCODONE-acetaminophen (PERCOCET) 5-325 MG per tablet 2 tablet(Linked Group 1) Mg/kg dosing is based on the oxycodone component., 2 tablet, Oral, EVERY 4 HOURS PRN, Starting on Denisha 10/12/21 at 1323, Until Discontinued, Pain Severe (7-10), Maximum dose of acetaminophen is 4000 mg from all sources in 24 hours., 1700 (See Alternative - Provider: Milla Davis RN) 1041 (See Alternative - Provider: Nohemy Nuñez RN)2046 (See Alternative - Provider: Elif Prince, SHANON) oxytocin (PITOCIN) 10 unit bolus from the [...] Care 1503 (New Bag - Provider: Milla Davis, SHANON)2136 (Stopped - Provider: Lilo Kulkarni, SHANON) 1128 (Stopped - Provider: Leda Glez, SHANON) sennosides-docusate sodium (SENOKOT-S) 8.6-50 MG tablet 1 [...] BE BASED ON THE PRIMARY CLINICAL RECORDS. [employer] provides no warranty or guarantee of the accuracy or completeness of information in this document.
== END 2023-12-18 12:03 | disposition home or self-care (01) ==
LOC: ER 11:56 → MS 12-18 10:41
PROVIDERS: Admitting Provider Nurse Practitioner; Emergency Provider Emergency Medicine; PCP Internal Medicine; Visit Provider Nurse Practitioner
DX: G45.9 Transient cerebral ischemic attack, unspecified (principal); Q21.12 Patent foramen ovale; R00.2 Palpitations; D64.9 Anemia, unspecified; N92.0 Excessive and frequent menstruation with regular cycle; F41.9 Anxiety disorder, unspecified; Z79.899 Other long term (current) drug therapy
CPT/HCPCS: 36415; 70450; 70496; 70498; 70553; 71045; 80053; 80061; 82607; 82728; 82746; 83036; 83540; 83550; 83735; 84443; 84484; 85025; 85045; 85610; 85730; 93005; 93306; 93970; 96365; 96372; 99285; G0328; G0378; J1756; Q3014; Q9967

== ENCOUNTER 2023-12-23 16:10 | Outpatient (OUT) | payer BC, SELFPAY ==
[2023-12-25 04:08] LABS: Homocyst(e)ine 10.4 umol/L (0.0-14.5)
[2023-12-26 00:08] LABS: Antithrombin Activity 126 % (75-135); Lupus Reflex Interpretation Comment: (.); PTT-LA 36.8 sec (0.0-43.5); Protein C-Functional 79 % (73-180); Protein S-Functional 88 % (63-140); dRVVT 33.7 sec (0.0-47.0)
== END 2023-12-23 16:11 | disposition home or self-care (01) ==
LOC: LAB 16:12
PROVIDERS: PCP Internal Medicine; Visit Provider Internal Medicine Interventional Cardiology
DX: G45.9 Transient cerebral ischemic attack, unspecified (principal)
CPT/HCPCS: 36415; 81241; 83090; 85210; 85300; 85303; 85306; 85597; 85598; 85610; 85613; 85670; 85730; 85732; 86146; 86147

== ENCOUNTER 2024-02-15 09:48 | Outpatient (OUT) | payer BC, SELFPAY ==
[2024-02-17 15:08] LABS: Beta-2 Glycoprotein I Ab, IgA <9 (0-25); Beta-2 Glycoprotein I Ab, IgG <9 (0-20); Beta-2 Glycoprotein I Ab, IgM <9 (0-32)
--- OUTSIDE RECORDS SUMMARY | 2024-02-18 09:52 | XMS_ITS | CCD ---
Author Organization [facility] Care Team Providers Care Business Services Administrator Name Role Phone Bentley Amin Unavailable Unavailable Bentley Amin Unavailable Unavailable Camilo, Edward Unavailable Unavailable Ball Edward KULKARNI Primary [...] DR BALLARD Consulting Unavailable Camilo, Edward Unavailable RAFAEL STATON Attending Unavailable BALL, EDWARD E Primary Care Unavailable BALL, EDWARD E Referring Unavailable BALL, EDWARD E Primary Care Unavailable BALL, EDWARD E Referring Unavailable BALL, EDWARD E Primary Care Unavailable BALL, EDWARD E Referring Unavailable BALL, EDWARD E Primary Care Unavailable BALL, EDWARD E Referring Unavailable BALL, EDWARD E Primary Care Unavailable BALL, EDWARD Armijo Referring Unavailable BALL, EDWARD E Primary Care Unavailable BALL, EDWARD E Referring Unavailable BALL, EDWARD E Primary Care Unavailable MICK WREN Referring Unavailable BALL, EDWARD E Primary Care Unavailable CATA GIANG Attending Unavailable MICK WREN Referring Unavailable EDWARD PAGE Primary Care Unavailable CATA GIANG Admitting Unavailable DIANNE DANG Attending Unavailable DIANNE DANG Attending Unavailable Allergies Allergy Classification Reported Allergen(s) Allergy Type Date of Onset Reaction(s) Facility (7 sources) Penicillins; Translations: [PENICILLINS] Propensity to adverse reactions [facility] Pen[facility] G; Translations: [PENICILLIN G] Drug Allergy 03-13-20 17 [facility] (3 sources) Penicillin Drug Allergy 03-16-20 14 Unknown Syndiant Other (4 sources) Substance with penicillin structure and antibacterial mechanism of action (substance) Drug allergy 01-14-20 18 Unknown Syndiant Other (3 sources) patient allergy list reviewed by nurse or physicia Propensity to adverse reactions 02-27-20 17 Comment:Done Syndiant Other (3 sources) Allergies Reconciled Propensity to adverse reactions Unknown Syndiant Other Medications Current Medications Medication Drug Class(es) [...] per tablet 1 tablet aspirin 81 mg delayed release oral tablet (7 sources) Platelet Aggregation Inhibitor, Nonsteroidal Anti-inflammatory Drug Start: 12-23-2023 Aspirin (Adult Lo w Dose Aspirin) 81 mg tablet,delayed release (DR/EC) Active 81 MG PO Daily December 23, 2023 12:00am Start: 06-15-2021 End: 10-14-2021 ASPIRIN LOW DOSE 81 MG chewa ble tablet atorvastatin 20 mg oral tablet (1 source) HMG-CoA Reductase Inhibitor Start: 12-23-2023 take 20 mg by mouth once daily Atorvastatin Active 20 MG PO Daily December 23, 2023 12:00am azithromycin 250 mg oral tablet (3 sources) Macrolide Antimicrobial Start: 08-29-2022 Azithromycin 250 MG as directed Orally daily for 5 days Aug, Active buPROPion hydrochloride 100 mg oral tablet (11 sources) Aminoketone Start: 09-12-2023 take 100 mg by mouth twice daily Bupropion Hcl Active 100 MG PO Twice daily September 12, 2023 1:00am Start: 04-09-2023 take 1 tablet by cara th every twelve hours buPROPion HCl 100 MG [...] mg docusate sodium 50 mg / sennosides, long term 8.6 mg oral tablet (1 source) Start: [...] 1 tablet Orally Once a day Active ferrous sulfate 325 mg oral tablet (1 source) Start: 12-23-2023 take 325 mg by mouth twice daily Ferrous Sulfate Active 325 MG PO Twice daily December 23, 2023 12:00am glucagon (rdna) 1 mg injection (1 source) Antihypoglycemic Agent Start: 10-12-2021 glucagon (rDNA) injection 1 mg 150 ml glucose 50 mg/ml injection (3 sources) Start: 10-12-2021 dextrose 5 % solution Start: 10-12-2021 glucose (GLUTO SE) 40 % oral gel 15 g Start: 10-12-2021 dextrose 50 % IV solution ibuprofen 800 mg oral tablet (2 sources) [...] Start: 10-12-2021 lansinoh lanol in ointment levonorgestrel 0.517549 mg/hr intrauterine system (8 sources) Progestin, Progestin-containing Intrauterine Device Start: 09-12-2023 Levonorgestrel Active 1 DEVICE INTRAUTERI As Directed September 12, 2023 1:00am 1 ml methylergonovine maleate 0.2 mg/ml injection (1 source) Ergot Derivative Start: 10-12-2021 methylergonov ine (METHERGINE) injection 200 mcg metroNIDAZOLE 250 mg oral tablet (1 source) Nitroimidazole Antimicrobial Start: 10-12-2021 End: 10-14-2021 metroNIDAZOLE (FLAGYL) tablet 500 mg miSOPROStol 0.1 mg oral tablet (1 source) Prostaglandin E1 Analog Start: 10-12-2021 miSOPROStol (CYTOTEC ) tablet 800 mcg 1 ml nalbuphine hydrochloride 10 mg/ml injection (1 source) Opioid Agonist/Antagonist Start: 10-12-2021 nalbuphine (NUBAIN) injection 10 mg 1 ml naloxone hydrochloride 0.4 mg/ml injection (1 source) Opioid Antagonist Start: 10-12-2021 naloxone (NA RCAN) injection 0.4 mg 2 ml ondansetron 2 mg/ml injection (1 source) Serotonin-3 Receptor Antagonist Start: 10-12-2021 ondansetron (ZOFRAN) injection 4 mg oxytocin (PITOCIN) 30 units in 500 mL infusion (1 source) Start: 10-12-2021 End: 10-14-2021 oxytocin (PITOCIN) 30 units in 500 mL infusion Vit-Fe Fumarate-FA ( VITAMINS PO) (6 sources) Vit-Fe Fumarate-FA ( VITAMINS PO) Take by mouth 0 Active vitamin 27-1 MG tablet 1 tablet (1 source) Start: 10-12-2021 vitam in 27-1 MG tablet 1 tablet simethicone 80 mg chewable tablet (1 source) Start: 10-12-2021 simethicone (M YLICON) chewable tablet 80 mg 5 ml sodium chloride 9 mg/ml injection (4 sources) Start: 10-12-2021 sodium chlorid e flush 0.9 % injection 10 mL Start: [...] in sodium chloride (PF) 10 mL injection hydrOXYzine hydrochloride 25 mg oral tablet (5 sources) Antihistamine Start: 09-12-2023 End: 12-23-2023 take 1-2 tablets by mouth once daily at bedtime as needed Hydroxyzine Hcl Discontinued 0 PO Daily at bedtime September 12, 2023 1:00am December 23, 2023 3:53pm 1-2 Tablets orally daily at bedtime PRN; Start: 04-09-2023 take 1-2 tablets by mouth once at bedtime as needed for sleep hydrOXYzine HCl 25 MG 1-2 tablets Orally q HS as needed for sleep Apr, Active 1 ml ketorolac tromethamine 30 mg/ml cartridge (1 source) Nonsteroidal Anti-inflammatory Drug, Cyclooxygenase Inhibitor Start: 10-12-2021 End: 10-13-2021 ketorolac (TORADOL) injection 30 mg 500 ml magnesium sulfate 40 mg/ml injection (3 sources) Start: 10-12-2021 End: 10-12-2021 magnesium sulfate 4000 mg in 100 mL IVPB premix Start: 10-12-2021 End: 10-13-2021 magnesium sulfate (58528 mg/ 500mL infusion) 2 ml metoclopramide 5 [...] bronchitis due to other specified organisms] Episodic Acute cerebrovascular disease (1 source) Acute cerebrovascular disease Onset: 12-17-2023 Anxiety disorders (8 sources) Generalized anxiety disorder; Translations: [Generalized anxiety disorder] 09-12-2023 Chronic Cardiac and circulatory congenital anomalies (3 sources) Patent foramen ovale; Translations: [Patent foramen ovale] Onset: 12-26-2023 12-20-2023 Chronic Cardiac dysrhythmias (1 source) Palpitations; Translations: [Palpitations] Onset: 12-26-2023 Episodic Deficiency and other anemia (1 source) Anemia; Translations: [Anemia, unspecified] 12-21-2023 Episodic Deficiency and other anemia (1 source) Anemia, unspecified; Translations: [Anemia, unspecified] 12-23-2023 Episodic Diabetes mellitus with complications (9 sources) Type 2 diabetes mellitus; Translations: [Type 2 diabetes mellitus with hyperglycemia] 09-14-2023 Chronic Diabetes mellitus without complication (8 sources) [...] disorder, not otherwise specified] Chronic Mood disorders (11 sources) Mild recurrent major depression; 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, recurrent, 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 Other circulatory disease (2 sources) Personal history of transient ischemic attack (TIA), and cerebral infarction without residual deficits; Translations: [Personal history of transient ischemic attack (TIA), and cerebral infarction without residual deficits] Onset: 12-20-2023 Episodic Other female genital disorders (7 sources) Postcoital bleeding; Translations: [Postcoital and contact bleeding] Chronic Other gastrointestinal disorders (7 sources) Diarrhea; Translations: [Diarrhea, unspecified] Episodic Other nutritional; endocrine; and metabolic disorders (7 sources) Morbid obesity; Translations: [Morbid (severe) obesity due to excess calories] Chronic Other nutritional; endocrine; and metabolic disorders (1 source) Obesity; Translations: [Obesity, unspecified] 09-16-2023 Chronic Other upper respiratory infections (10 sources) Acute upper respiratory infection, unspecified; Translations: [Acute pharyngitis, unspecified] Onset: 06-14-2021 Resolved: 06-14-2021 Episodic Residual codes; unclassified (4 sources) Tobacco use; Translations: [TOBACCO USE] Onset: 08-17-2022 Episodic Residual codes; unclassified (1 source) Pain, unspecified; Translations: [Pain, unspecified] Onset: 12-18-2023 Episodic Transient cerebral ischemia (3 sources) Transient cerebral ischemia; Translations: [Transient cerebral ischemic attack, unspecified] Onset: 12-26-2023 12-21-2023 Chronic Unclassified (5 sources) No additional problems on file Unclassified (1 source) Atrial septal defect, unspecified; Translations: [Atrial septal defect, unspecified] Onset: 12-20-2023 Past or Other Problems Problem Classification Problem Date Documented Da te Episodic/Chronic Immunizations and screening for infectious disease (1 source) Contact with and (suspected) exposure to other viral communicable diseases Onset: 06-14-2021 Resolved: 06-14-2021 Episodic Unclassified (1 source) Atrial septal defect, unspecified; Translations: [Atrial septal defect, unspecified] Onset: 12-20-2023 Results Test Name Value Interpretation Reference Range Facility Office Visiton 12-20-2023 Follow-up visit [id number] Shamir Murphy 1985 F Date Provider Department Center 12/20/2023 RAFAEL WHITE [facility] Family History Problem Relation Age of Onset Diabetes Mother Hypertension Father Atrial fibrillation Brother Lung cancer Paternal Grandfather Family Status - Relation Status Age at Mother Father Brother Maternal Grandmother Alive Paternal Grandfather Level of Service:37989 [place] PHYS/QHP TELEPHONE EVALUATION 21-30 MIN Normal [facility] Basophils Auto (Bld) [#/Vol] on 12-18-2023 Basophils (Bld) [#/Vol] 0.0 10 3/uL 0.0-0.1 [facility] Basophils/100 WBC Auto (Bld) on 12-18-2023 Basophils/100 WBC (Bld) 0.7 % 0.2-2.0 [facility] Eosinophils/100 WBC Auto (Bl d)on 12-18-2023 Eosinophils/100 WBC (Bld) 1.5 % 0.9-7.0 [facility] Erythrocyte distribution wid th Auto (RBC) [Ratio]on 12-18-2023 Erythrocyte distribution width (RBC) [Ratio] 18.0 % 11.0-15.0 [facility] Estimated glomerular filtrat ion rate (GFR) non- Americanon 12-18-2023 GFR/1.73 sq M.predicted among non-blacks MDRD (S/P/Bld) [Vol rate/Area] mL/min/{1.73_m2} >=60 [facility] Globulin Calc (S) [Mass/Vol] on 12-18-2023 Globulin (S) [Mass/Vol] 3.1 g/dL [facility] Hematocrit Auto (Bld) [Volum e fraction]on 12-18-2023 Hematocrit (Bld) [Volume fraction] 27.9 % 36.0-48.0 [facility] Hemoglobin [Mass/volume] in Bloodon 12-18-2023 Hemoglobin (Bld) [Mass/Vol] 8.2 g/dL 12.0-16.0 [facility] Laboratory - Chemistry and C hemistry - challengeon 12-18-2023 Albumin [Mass/Vol] 2.8 g/dL 3.4-5.0 [facility] ALP [Catalytic activity/Vol] 67 U/L 46-116 [facility] ALT [Catalytic activity/Vol] 14 U/L 14-59 [facility] AST [Catalytic activity/Vol] 8 U/L 15-37 [facility] Bilirubin [Mass/Vol] 0.4 mg/dL 0.2-1.0 [facility] Calcium [Mass/Vol] 7.8 mg/dL 8.5-10.1 [facility] Chloride [Moles/Vol] 108 mmol/L 98-107 [facility] CO2 [Moles/Vol] 25.7 mmol/L 21.0-32.0 [facility] Creatinine [Mass/Vol] 0.60 mg/dL 0.55-1.02 [facility] GFR/1.73 sq M.predicted MDRD (S/P/Bld) [Vol rate/Area] mL/min/{1.73_m2} >=60 [facility] Glucose [Mass/Vol] 75 mg/dL 74-106 [facility] Potassium [Moles/Vol] 3.7 mmol/L 3.5-5.1 [facility] Protein [Mass/Vol] 5.9 g/dL 6.4-8.2 [facility] Sodium [Moles/Vol] 139 mmol/L 136-145 [facility] Urea nitrogen [Mass/Vol] 9.0 mg/dL 7.0-18.0 [facility] Urea nitrogen/Creatinine [Mass ratio] 15.0 mg/mg [facility] Laboratory - Hematology and Cell countson 12-18-2023 Immature granulocytes/100 WBC (Bld) 0.2 % 0.0-0.5 [facility] Leukocytes [#/volume] correc alfredito for nucleated erythrocytes in Blood by Automated counon 12-18-2023 WBC corrected for nucl RBC Auto (Bld) [#/Vol] 5.9 10 3/uL 4.0-11.0 [facility] Lymphocytes Auto (Bld) [#/Vo l]on 12-18-2023 Lymphocytes (Bld) [#/Vol] 2.4 10 3/uL 1.2-3.8 [facility] Lymphocytes/100 WBC Auto (Bl d)on 12-18-2023 Lymphocytes/100 WBC (Bld) 41.3 % 20.5-60.0 [facility] MCH Auto (RBC) [Entitic mass ]on 12-18-2023 MCH (RBC) [Entitic mass] 21.0 pg 26.7-34.0 [facility] MCHC Auto (RBC) [Mass/Vol]on 12-18-2023 MCHC (RBC) [Mass/Vol] 29.4 g/dL 29.9-35.2 [facility] MCV Auto (RBC) [Entitic vol] on 12-18-2023 MCV (RBC) [Entitic vol] 71.5 fL 81.0-99.0 [facility] Monocytes Auto (Bld) [#/Vol] on 12-18-2023 Monocytes (Bld) [#/Vol] 0.4 10 3/uL 0.3-0.8 [facility] Monocytes/100 WBC Auto (Bld) on 12-18-2023 Monocytes/100 WBC (Bld) 6.6 % 1.7-12.0 [facility] Neutrophils Auto (Bld) [#/Vo l]on 12-18-2023 Neutrophils (Bld) [#/Vol] 2.9 10 3/uL 1.4-6.5 [facility] Neutrophils/100 WBC Auto (Bl d)on 12-18-2023 Neutrophils/100 WBC (Bld) 49.7 % 43.0-75.0 [facility] No Panel Informationon 12-17 Eosinophils # (Auto) 0.1 10 3/uL 0.0-0.7 [facility] Immature Granulocyte # (Auto) 0.01 10 3/uL 0.00-0.03 [facility] Platelet mean volume Auto (B ld) [Entitic vol]on 12-18-2023 Platelet mean volume (Bld) [Entitic vol] 10.4 fL 9.5-13.5 [facility] Platelets Auto (Bld) [#/Vol] on 12-18-2023 Platelets (Bld) [#/Vol] 247 10 3/uL 150-450 [facility] RBC Auto (Bld) [#/Vol]on RBC (Bld) [#/Vol] 3.90 10 6/uL 4.20-5.40 [facility] Serum or plasma albumin/glob ulin mass ratioon 12-18-2023 Albumin/Globulin [Mass ratio] 0.9 {ratio} [facility] Serum or plasma anion gap de terminationon 12-18-2023 Anion gap [Moles/Vol] 9.0 mmol/L [facility] Activated partial thrombopla stin time (aPTT) in platelet poor plasma by coagulation aon 12-17-2023 aPTT Coag (PPP) [Time] 26.5 s 22.3-36.2 [facility] Basophils Auto (Bld) [#/Vol] on 12-17-2023 Basophils (Bld) [#/Vol] 0.0 10 3/uL 0.0-0.1 [facility] Basophils/100 WBC Auto (Bld) on 12-17-2023 Basophils/100 WBC (Bld) 0.7 % 0.2-2.0 [facility] Cholesterol in LDL Calc [Mas s/Vol]on 12-17-2023 Cholesterol in LDL [Mass/Vol] 64.4 mg/dL [facility] Comment on above: <100 mg/dl [id number] 0-129 mg/dl NEAR OR ABOVE [id number] mg/dl BORDERLINE [id number] mg/dl HIGH>190 mg/dl VERY HIGH Cholesterol in VLDL Calc [Ma ss/Vol]on 12-17-2023 Cholesterol in VLDL [Mass/Vol] 10.6 mg/dL [facility] Eosinophils/100 WBC Auto (Bl d)on 12-17-2023 Eosinophils/100 WBC (Bld) 1.5 % 0.9-7.0 [facility] Erythrocyte distribution wid th Auto (RBC) [Ratio]on 12-17-2023 Erythrocyte distribution width (RBC) [Ratio] 17.8 % 11.0-15.0 [facility] Estimated glomerular filtrat ion rate (GFR) non- Americanon 12-17-2023 GFR/1.73 sq M.predicted among non-blacks MDRD (S/P/Bld) [Vol rate/Area] mL/min/{1.73_m2} >=60 [facility] Globulin Calc (S) [Mass/Vol] on 12-17-2023 Globulin (S) [Mass/Vol] 3.6 g/dL [facility] Glucose mean value [Mass/vol ume] in Blood Estimated from glycated hemoglobinon 12-17-2023 Average glucose Estimated from glycated hemoglobin (Bld) [Mass/Vol] 114 mg/dL [facility] Hematocrit Auto (Bld) [Volum e fraction]on 12-17-2023 Hematocrit (Bld) [Volume fraction] 31.4 % 36.0-48.0 [facility] Hemoglobin [Mass/volume] in Bloodon 12-17-2023 Hemoglobin (Bld) [Mass/Vol] 9.2 g/dL 12.0-16.0 [facility] INR in Platelet poor plasma by Coagulation assayon 12-17-2023 INR Coag (PPP) [Relative time] 1.07 {INR} [facility] Comment on above: DESIRED INR:2.0-3.0 CONDITIONS NOT LISTED BELOW2.5-3.5 FOR PROSTHETIC HEART VALVE REPLACEMENT2.5-3.5 RECURRENT THROMBOSIS Iron binding capacity [Mass/ volume] in Serum or Plasmaon 12-17-2023 Iron binding capacity [Mass/Vol] 443.0 ug/dL 250.0-450. 0 [facility] Iron saturation [Mass Fracti on] in Serum or Plasmaon 12-17-2023 Iron saturation [Mass fraction] 3.6 % [facility] Laboratory - Chemistry and C hemistry - challengeon 12-17-2023 Albumin [Mass/Vol] 3.3 g/dL 3.4-5.0 [facility] ALP [Catalytic activity/Vol] 79 U/L 46-116 [facility] ALT [Catalytic activity/Vol] 17 U/L 14-59 [facility] AST [Catalytic activity/Vol] 16 U/L 15-37 [facility] Bilirubin [Mass/Vol] 0.6 mg/dL 0.2-1.0 [facility] Calcium [Mass/Vol] 8.1 mg/dL 8.5-10.1 [facility] Chloride [Moles/Vol] 105 mmol/L 98-107 [facility] Cholesterol [Mass/Vol] 125 mg/dL <=200 [facility] Cholesterol in HDL [Mass/Vol] 50 mg/dL 40-60 [facility] Comment on above: > or =60 mg/dl - LOW CARDIOVASCULAR RISK<40 mg/dl - HIGH CARDIOVASCULAR RISK CO2 [Moles/Vol] 27.0 mmol/L 21.0-32.0 [facility] Cobalamin (Vitamin B12) [Mass/Vol] 209.0 pg/mL 193.0-986. 0 [facility] Creatinine [Mass/Vol] 0.70 mg/dL 0.55-1.02 [facility] Ferritin [Mass/Vol] 6.0 ng/mL 8.0-252.0 [facility] GFR/1.73 sq M.predicted MDRD (S/P/Bld) [Vol rate/Area] mL/min/{1.73_m2} >=60 [facility] Glucose [Mass/Vol] 94 mg/dL 74-106 [facility] Iron [Mass/Vol] 16.0 ug/dL 50.0-170.0 [facility] Magnesium [Mass/Vol] 2.4 mg/dL 1.8-2.4 [facility] Potassium [Moles/Vol] 3.5 mmol/L 3.5-5.1 [facility] Protein [Mass/Vol] 6.9 g/dL 6.4-8.2 [facility] Sodium [Moles/Vol] 141 mmol/L 136-145 [facility] Triglyceride [Mass/Vol] 53 mg/dL <=150 [facility] TSH Qn 1.336 m[IU]/L 0.358-3.74 0 [facility] Urea nitrogen [Mass/Vol] 10.0 mg/dL 7.0-18.0 [facility] Urea nitrogen/Creatinine [Mass ratio] 14.3 mg/mg [facility] Laboratory - Hematology and Cell countson 12-17-2023 HbA1c (Bld) [Mass fraction] 5.6 % 4.5-6.2 [facility] Comment on above: ADA RECOMMENDED LIMI T 4.0 - 6.0ADA THERAPEUTIC TARGET < 7.0ACTION SUGGESTED> 7.0 Immature granulocytes/100 WBC (Bld) 0.2 % 0.0-0.5 [facility] Leukocytes [#/volume] correc alfredito for nucleated erythrocytes in Blood by Automated counon 12-17-2023 WBC corrected for nucl RBC Auto (Bld) [#/Vol] 5.5 10 3/uL 4.0-11.0 [facility] Lymphocytes Auto (Bld) [#/Vo l]on 12-17-2023 Lymphocytes (Bld) [#/Vol] 2.5 10 3/uL 1.2-3.8 [facility] Lymphocytes/100 WBC Auto (Bl d)on 12-17-2023 Lymphocytes/100 WBC (Bld) 46.2 % 20.5-60.0 [facility] MCH Auto (RBC) [Entitic mass ]on 12-17-2023 MCH (RBC) [Entitic mass] 20.9 pg 26.7-34.0 [facility] MCHC Auto (RBC) [Mass/Vol]on 12-17-2023 MCHC (RBC) [Mass/Vol] 29.3 g/dL 29.9-35.2 [facility] MCV Auto (RBC) [Entitic vol] on 12-17-2023 MCV (RBC) [Entitic vol] 71.4 fL 81.0-99.0 [facility] Monocytes Auto (Bld) [#/Vol] on 12-17-2023 Monocytes (Bld) [#/Vol] 0.4 10 3/uL 0.3-0.8 [facility] Monocytes/100 WBC Auto (Bld) on 12-17-2023 Monocytes/100 WBC (Bld) 6.6 % 1.7-12.0 [facility] Neutrophils Auto (Bld) [#/Vo l]on 12-17-2023 Neutrophils (Bld) [#/Vol] 2.4 10 3/uL 1.4-6.5 [facility] Neutrophils/100 WBC Auto (Bl d)on 12-17-2023 Neutrophils/100 WBC (Bld) 44.8 % 43.0-75.0 [facility] No Panel Informationon 12-16 Eosinophils # (Auto) 0.1 10 3/uL 0.0-0.7 [facility] Folate 12.40 ng/mL 8.60-58.90 [facility] Immature Granulocyte # (Auto) 0.01 10 3/uL 0.00-0.03 [facility] Troponin I High Sensitivity 6.3 pg/mL 4.0-51.3 [facility] Comment on above: CUT-OFF POINTS HAVE BEEN ESTABLISHED BASED ON THE FOURTHUNIVERSAL DEFINITION OF MYOCARDIAL INFARCTION. THE UPPERREFERENCE LIMIT (URL) OF TROPONIN, DEFINED THE 99THPERCENTILE OF cTnI DISTRIBUTION IN A REFERENCE POPULATION,HAS BEEN CONFIRMED THE DECISION THRESHOLD FOR MIDIAGNOSIS.99TH PERCENTILE = 51.4 PG/MLNOTE: HIGH-SENSITIVITY TROPONIN ASSAY IS NOT INTENDED TO BEUSED IN ISOLATION BUT SHOULD BE INTERPRETED IN CONJUNCTIONWITH OTHER DIAGNOSTIC AND CLINICAL INFORMATION. Platelet mean volume Auto (B ld) [Entitic vol]on 12-17-2023 Platelet mean volume (Bld) [Entitic vol] 10.1 fL 9.5-13.5 [facility] Platelets Auto (Bld) [#/Vol] on 12-17-2023 Platelets (Bld) [#/Vol] 283 10 3/uL 150-450 [facility] Prothrombin time (PT)on 12-06 PT Coag (PPP) [Time] 11.3 s 9.0-11.6 [facility] RBC Auto (Bld) [#/Vol]on RBC (Bld) [#/Vol] 4.40 10 6/uL 4.20-5.40 [facility] Reticulocytes/100 RBC Auto ( Bld)on 12-17-2023 Reticulocytes/100 RBC (Bld) 0.95 % 0.60-3.10 [facility] Serum or plasma albumin/glob ulin mass ratioon 12-17-2023 Albumin/Globulin [Mass ratio] 0.9 {ratio} [facility] Serum or plasma anion gap de terminationon 12-17-2023 Anion gap [Moles/Vol] 12.5 mmol/L [facility] Serum or plasma total choles terol/high density lipoprotein (HDL) cholesterol mass vasiliy 12-17-2023 Cholesterol.total/C holesterol in HDL [Mass ratio] 2.5 {ratio} [facility] Comment on above: 3.3 - 4.4 LOW RISK4. 4 - 7.1 AVERAGE RISK7.1 - 11.0 MODERATE RISK>11.0 HIGH RISK NICOTINE METABOLITESon 08-27 Cotinine <1.0 Normal [facility] Comment on above: Result Comment: This test was developed and its performance characteristics determined by [facility]. It has not been cleared or approved by the Food and Drug Administration. Cotinine levels greater than 20.0 are consistent with the use of tobacco or tobacco cessation products. Performed By: #### N ICTBLD #### [facility] [address] [address] [address] Malcolm Gil Nicotine <1.0 Normal [facility] Comment on above: Result Comment: This test was developed and its performance characteristics determined by [facility]. It has not been cleared or approved by the Food and Drug Administration. Nicotine levels greater than 2.0 are consistent with the use of tobacco or tobacco cessation products. Performed By: #### N ICTBLD #### [facility] [address] [address] [address] Malcolm Gil GLYCOHEMOGLOBIN A1Con 2022 ADA RECOMMENDATION SEE BELOW Normal [facility] Comment on above: Result Comment: ADA RECOMMENDED LIMIT 4.0 - 6.0 ADA THERAPEUTIC TARGET < 7.0 ACTION SUGGESTED > 7.0 Performed By: #### A 1C #### [facility] [address] [place] [address] Dr. Malcolm Gil Glucose [Mass/Vol] 163 mg/dL Normal [facility] Comment on above: Performed By: #### A 1C #### [facility] [address] [address] [address] Malcolm Gil HbA1c (Bld) [Mass fraction] 7.3 % Critically high 4.5-6.2 [facility] Comment on above: Performed By: #### A 1C #### [facility] [address] [address] [address] Malcolm Gil Glucose, Whole Bloodon 10-14 Glucose [Mass/Vol] 85 mg/dL 74 - 100 mg/dL [facility] Glucose, Whole Bloodon 10-13 Glucose [Mass/Vol] 161 mg/dL High 74 - 100 mg/dL [facility] Interpretation and review of laboratory results Abnormal [facility] Glucose [Mass/Vol] 168 mg/dL High 74 - 100 mg/dL [facility] Interpretation and review of laboratory results Abnormal [facility] Glucose [Mass/Vol] 136 mg/dL High 74 - 100 mg/dL [facility] Interpretation and review of laboratory results Abnormal [facility] Glucose [Mass/Vol] 137 mg/dL High 74 - 100 mg/dL [facility] Interpretation and review of laboratory results Abnormal [facility] Hemoglobinon 10-13-2021 Hemoglobin (Bld) [Mass/Vol] 10.1 g/dL Low 11.9-15.1 [facility] Comment on above: Performed By: #### U RTPRT #### [facility] [address] [place] [address] Director Of Product Design: Morro Hale MD Hemoglobin.gastroin testinal spec 1 Ql (Stl) 10.1 g/dL Low 11.9 - 15.1 g/dL [facility] Interpretation and review of laboratory results Abnormal [facility] Hemoglobin A1Con 10-13-2021 Glucose [Mass/Vol] 143 mg/dL Normal [facility] Comment on above: Result Comment: The ADA and AACC recommend providing the estimated average glucose result to permit better patient understanding of their HBA1c result. Performed By: #### U RTPRT #### [facility] [address] [place], [place] [id number] Director Of Product Design: Morro Hale MD HbA1c (Bld) [Mass fraction] 6.6 % High 4.0-6.0 [facility] Comment on above: Performed By: #### U RTPRT #### [facility] [address] [place] [address] Director Of Product Design: Morro Hale MD Hemoglobin A1con 10-13-2021 Glucose [Mass/Vol] 143 mg/dL [facility] Comment on above: The ADA and AACC rec ommend providing the estimated average glucose result to permit better patient understanding of their HBA1c result. HbA1c (Bld) [Mass fraction] 6.6 % High 4.0 - 6.0 % [facility] Interpretation and review of laboratory results Abnormal [facility] Magnesiumon 10-13-2021 Magnesium [Mass/Vol] 4.7 mg/dL Critically high 1.6-2.6 [facility] Comment on above: Performed By: #### U RTPRT #### [facility] [address] [place] [address] Director Of Product Design: Morro Hale MD Interpretation and review of laboratory results Abnormal [facility] Magnesium [Mass/Vol] 4.7 mg/dL Critically high 1.6 - 2.6 mg/dL [facility] Magnesium [Mass/Vol] 5.3 mg/dL Critically high 1.6-2.6 [facility] Comment on above: Performed By: #### M G #### [facility] [address] [place] [address] Director Of Product Design: Morro Hale MD Interpretation and review of laboratory results Abnormal [facility] Magnesium [Mass/Vol] 5.3 mg/dL Critically high 1.6 - 2.6 mg/dL [facility] Magnesium [Mass/Vol] 4.1 mg/dL Critically high 1.6-2.6 [facility] Comment on above: Performed By: #### M G #### [facility] [address] [place] [address] Director Of Product Design: Morro Hale MD APTTon 10-12-2021 aPTT Coag (Bld) [Time] 23.9 s Low 26.8-34.8 [facility] Comment on above: Result Comment: IV Heparin Therapy Range: 62.0-94.0 Performed By: #### U RTPRT #### [facility] [address] [place] [address] Director Of Product Design: Morro Hale MD aPTT Coag (Bld) [Time] 23.9 s Low [facility] Comment on above: IV Heparin Therapy Range: 62.0-94.0 Interpretation and review of laboratory results Abnormal [facility] CBC with Auto Differentialon 10-12-2021 Absolute Eos # 0.11 [facility] th Absolute Immature Granulocyte 0.07 [facility] Absolute Lymph # 2.[address] [facility] alth Absolute Thurston # 0.53 [facility] lt Basophils (Bld) [#/Vol] 0.04 10*3/uL [facility] Basophils/100 WBC (Bld) 0 % 0 - 2 % [facility] Eosinophils/100 WBC (Bld) 1 % 1 - 4 % [facility] Hematocrit (Bld) [Volume fraction] 34.6 % Low 36.3 - 47.1 % [facility] Hemoglobin.gastroin testinal spec 1 Ql (Stl) 11.2 g/dL Low 11.9 - 15.1 g/dL [facility] Immature granulocytes/100 WBC (Bld) 1 % High 0 [facility] Interpretation and review of laboratory results Abnormal [facility] Lymphocytes/100 WBC (Bld) 23 % Low 24 - 43 % [facility] MCH (RBC) [Entitic mass] 27.1 pg 25.2 - 33.5 pg [facility] MCHC (RBC) [Mass/Vol] 32.4 g/dL 28.4 - 34.8 g/dL [facility] MCV (RBC) [Entitic vol] 83.6 fL 82.6 - 102.9 fL [facility] Monocytes/100 WBC (Bld) 6 % 3 - 12 % [facility] NRBC Automated 0.0 0.0 per 100 WBC [facility] Platelet distribution width (Bld) [Ratio] 14.6 % High 11.8 - 14.4 % [facility] Platelet mean volume (Bld) [Entitic vol] 10.6 fL 8.1 - 13.5 fL [facility] Platelets (Bld) [#/Vol] 224 10*3/uL [facility] RBC (Bld) [#/Vol] 4.14 10*6/uL 3.95 - 5.11 m/uL [facility] Segmented neutrophils/100 WBC (Bld) 69 % High 36 - 65 % [facility] Segs [facility]ld[facility] [#/Vol] 9.6 10*3/uL [facility] CBC with Diffon 10-12-2021 Abs. Basophil 0.04 k/uL Normal 0.00-0.20 [facility] Comment on above: Performed By: #### U RTPRT #### [facility] [address] [place] [address] [place] [address] Director Of Product Design: Morro Hale MD Abs.Imm.Granulocyte 0.07 k/uL Normal 0.00-0.30 [facility] Comment on above: Performed By: #### U RTPRT #### [facility] [address] [place] [address] Director Of Product Design: Morro Hale MD Abs.Neutrophil (Seg) 6.68 k/uL Normal 1.50-8.10 [facility] Comment on above: Performed By: #### U RTPRT #### [address] [place] [address] Director Of Product Design: Morro Hale MD Basophils/100 WBC (Bld) 0 % Normal 0-2 [facility] Comment on above: Performed By: #### U RTPRT #### [address] [place], [place] [id number] Director Of Product Design: Morro Hale MD Eosinophils (Bld) [#/Vol] 0.11 10*3/uL Normal 0.00-0.44 [facility] Comment on above: Performed By: #### U RTPRT #### [address] [place], [facility] Director Of Product Design: Morro Hale MD Eosinophils/100 WBC (Bld) 1 % Normal 1-4 [facility] Comment on above: Performed By: #### U RTPRT #### [address] [place] [id number] Director Of Product Design: Morro Hale MD Erythrocyte distribution width (RBC) [Ratio] 14.6 % High 11.8-14.4 [facility] Comment on above: Performed By: #### U RTPRT #### [address] [place], [facility] Director Of Product Design: Morro Hale MD Hematocrit (Bld) [Volume fraction] 34.6 % Low 36.3-47.1 [facility] Comment on above: Performed By: #### U RTPRT #### [address] [place] [id number] Director Of Product Design: Morro Hale MD Hemoglobin (Bld) [Mass/Vol] 11.2 g/dL Low 11.9-15.1 [facility] Comment on above: Performed By: #### U RTPRT #### [address] [place] [address] Director Of Product Design: Morro Hale MD Immature granulocytes/100 WBC (Bld) 1 % High 0 [facility] Comment on above: Performed By: #### U RTPRT #### [address] [place], [facility] Director Of Product Design: Morro Hale MD Lymphocytes (Bld) [#/Vol] 2.20 10*3/uL Normal 1.10-3.70 [facility] Comment on above: Performed By: #### U RTPRT #### [facility] [address] [place], [facility] Director Of Product Design: Morro Hale MD Lymphocytes/100 WBC (Bld) 23 % Low 24-43 [facility] Comment on above: Performed By: #### U RTPRT #### [facility] [address] [place], [facility] Director Of Product Design: Morro Hale MD MCH (RBC) [Entitic mass] 27.1 pg Normal 25.2-33.5 [facility] Comment on above: Performed By: #### U RTPRT #### [facility] [address] [place], [facility] Director Of Product Design: Morro Hale MD MCHC (RBC) [Mass/Vol] 32.4 g/dL Normal 28.4-34.8 [facility] Comment on above: Performed By: #### U RTPRT #### [address] [place], [facility] Director Of Product Design: Morro Hale MD MCV (RBC) [Entitic vol] 83.6 fL Normal 82.6-102.9 [facility] Comment on above: Performed By: #### U RTPRT #### [facility] [address] [place] [address] Dr[place], [facility] Director Of Product Design: Morro Hale MD Monocytes (Bld) [#/Vol] 0.53 10*3/uL Normal 0.10-1.20 [facility] Comment on above: Performed By: #### U RTPRT #### [facility] [address] [place] [address] Dr[place], [facility] Director Of Product Design: Morro Hale MD Monocytes/100 WBC (Bld) 6 % Normal 3-12 [facility] Comment on above: Performed By: #### U RTPRT #### [facility] [address] [place], [place] [id number] Director Of Product Design: Morro Hale MD Neutrophil (Seg) 69 % High 36-[address] [facility] Comment on above: Performed By: #### U RTPRT #### [facility] [address] [place], [place] [id number] Director Of Product Design: Morro Hale MD NRBC Automated 0.0 per 100 WBC Normal 0.0 [facility] Comment on above: Performed By: #### U RTPRT #### [facility] [address] [place], [place] [id number] Director Of Product Design: Morro Hale MD Platelet mean volume (Bld) [Entitic vol] 10.6 fL Normal 8.1-13.5 [facility] Comment on above: Performed By: #### U RTPRT #### [facility] [address] [place], [place] [id number] Director Of Product Design: Morro Hale MD Platelets (Bld) [#/Vol] 224 10*3/uL Normal 138-453 [facility] Comment on above: Performed By: #### U RTPRT #### [facility] [address] [place] [address] Director Of Product Design: Morro Hale MD RBC (Bld) [#/Vol] 4.14 10*6/uL Normal 3.95-5.11 [facility] Comment on above: Performed By: #### U RTPRT #### [facility] [address] [place], [place] [id number] Director Of Product Design: Morro Hale MD WBC (Bld) [#/Vol] 9.6 10*3/uL Normal 3.5-11.3 [facility] Comment on above: Performed By: #### U RTPRT #### [facility] [address] [place] [address] Director Of Product Design: Morro Hale MD Comp Metabolic Profon 2021 (cont.) Normal [facility] Comment on above: Result Comment: Aver age GFR for 30-39 years old: 107 mL/min/1.73sq m Chronic Kidney Disease: <60 mL/min/1.73sq m Kidney failure: <15 mL/min/1.73sq m eGFR calculated using average adult body mass. Additional eGFR calculator available at: http://www.SkyCache/multiple_crcl_2011.htm Performed By: #### U RTPRT #### [facility] [address] [place] [address] Director Of Product Design: Morro Hale MD Albumin [Mass/Vol] 3.3 g/dL Low 3.5-5.2 [facility] Comment on above: Performed By: #### U RTPRT #### [facility] [address] [place] [address] Director Of Product Design: Morro Hale MD Albumin/Glob Ratio 1.2 Normal 1.0-2.5 [facility] Comment on above: Performed By: #### U RTPRT #### [facility] [address] [place] [address] Director Of Product Design: Morro Hale MD Alkaline Phos 112 U/L High 35-104 [facility] Comment on above: Performed By: #### U RTPRT #### [facility] [address] [place] [address] Director Of Product Design: Morro Hale MD ALT [Catalytic activity/Vol] 11 U/L Normal 5-33 [facility] Comment on above: Performed By: #### U RTPRT #### [facility] [address] [place], [place] [id number] Director Of Product Design: Morro Hale MD Anion gap [Moles/Vol] 11 mmol/L Normal 9-17 [facility] Comment on above: Performed By: #### U RTPRT #### [facility] [address] [place], [place] [id number] Director Of Product Design: Morro Hale MD AST [Catalytic activity/Vol] 14 U/L Normal <32 [facility] Comment on above: Performed By: #### U RTPRT #### [facility] [address] [place] [id number] Director Of Product Design: Morro Hale MD Bilirubin [Mass/Vol] 0.27 mg/dL Low 0.3-1.2 [facility] Comment on above: Performed By: #### U RTPRT #### [facility] [address] [place], [place] [id number] Director Of Product Design: Morro Hale MD BUN/CRE Ratio 19 Normal 9-20 [facility] Comment on above: Performed By: #### U RTPRT #### [facility] [address] [place], [place] [id number] Director Of Product Design: Morro Hale MD Calcium [Mass/Vol] 9.2 mg/dL Normal 8.6-10.4 [facility] Comment on above: Performed By: #### U RTPRT #### [facility] [address] [place], [place] [id number] Director Of Product Design: Morro Hale MD Chloride [Moles/Vol] 98 mmol/L Normal 98-107 [facility] Comment on above: Performed By: #### U RTPRT #### [facility] [address] [place] [address] Director Of Product Design: Morro Hale MD CO2 [Moles/Vol] 21 mmol/L Normal 20-31 [facility] Comment on above: Performed By: #### U RTPRT #### [facility] [address] [place], [place] [address]83 Director Of Product Design: Morro Hale MD Creatinine [Mass/Vol] 0.58 mg/dL Normal 0.50-0.90 [facility] Comment on above: Performed By: #### U RTPRT #### [facility] [address] [place], [place] [id number] Director Of Product Design: Morro Hale MD GFR, Amer >60 Normal >[address] [facility] Comment on above: Performed By: #### U RTPRT #### [facility] [address] [place], [place] [id number] Director Of Product Design: Morro Hale MD GFR,non Amer >60 Normal >60 [facility] Comment on above: Performed By: #### U RTPRT #### [facility] [address] [place], [place] [id number] Director Of Product Design: Morro Hale MD Glucose [Mass/Vol] 120 mg/dL High 70-99 [facility] Comment on above: Performed By: #### U RTPRT #### [facility] [address] [place] [address] Dr[place], [place] [id number] Director Of Product Design: Morro Hale MD Potassium [Moles/Vol] 3.8 mmol/L Normal 3.7-5.3 [facility] Comment on above: Performed By: #### U RTPRT #### [facility] [address] [place], [place] [id number] Director Of Product Design: Morro Hale MD Protein [Mass/Vol] 6.1 g/dL Low 6.4-8.3 [facility] Comment on above: Performed By: #### U RTPRT #### [facility] [address] [place] [address] [place], [place] [id number] Director Of Product Design: Morro Hale MD Sodium [Moles/Vol] 130 mmol/L Low 135-144 [facility] Comment on above: Performed By: #### U RTPRT #### [facility] [address] [place] [address] Director Of Product Design: Morro Hale MD Staging: Normal [facility] Comment on above: Result Comment: Stag e 1: Some kidney damage normal GFR Stage 2: Mild kidney damage GFR 60-89 Stage 3: Moderate kidney damage GFR 30-59 Stage 4: Severe kidney damage GFR 15-29 Stage 5: Severe kidney damage GFR <15 ESRD - chronic treatment by dialysis or transplant Performed By: #### U RTPRT #### [facility] [address] [place] [address] Director Of Product Design: Morro Hale MD Urea nitrogen [Mass/Vol] 11 mg/dL Normal 6-20 [facility] Comment on above: Performed By: #### U RTPRT #### [facility] [address] [place] [address] Director Of Product Design: Morro Hale MD Comprehensive Metabolic Pane argelia 10-12-2021 Albumin [Mass/Vol] 3.3 g/dL Low 3.5 - 5.2 g/dL [facility] Albumin/Globulin [Mass ratio] 1.2 {ratio} [facility] ALP (Bld) [Catalytic activity/Vol] 112 U/L High 35 - 104 U/L [facility] ALT [Catalytic activity/Vol] 11 U/L 5 - 33 U/L [facility] Anion gap [Moles/Vol] 11 mmol/L 9 - 17 mmol/L [facility] AST [Catalytic activity/Vol] 14 U/L <32 [facility] Bilirubin [Mass/Vol] 0.27 mg/dL Low 0.3 - 1.2 mg/dL [facility] Calcium [Mass/Vol] 9.2 mg/dL 8.6 - 10. 4 mg/dL [facility] Chloride [Moles/Vol] 98 mmol/L 98 - 107 mmol/L [facility] CO2 [Moles/Vol] 21 mmol/L 20 - 31 mmol/L [facility] Creatinine [Mass/Vol] 0.58 mg/dL 0.50 - 0.90 mg/dL [facility] Free PSA/Total PSA [Mass fraction] 6.1 g/dL Low 6.4 - 8.3 g/dL [facility] GFR >60 >60 mL/min [facility] GFR Non- >60 >60 mL/min [facility] Glucose [Mass/Vol] 120 mg/dL High 70 - 99 mg/dL [facility] Interpretation and review of laboratory results Abnormal [facility] Potassium [Moles/Vol] 3.8 mmol/L 3.7 - 5.3 mmol/L [facility] Sodium [Moles/Vol] 130 mmol/L Low 135 - 144 mmol/L [facility] Urea nitrogen (BldV) [Mass/Vol] 11 mg/dL 6 - 20 mg/dL [facility] Urea nitrogen/Creatinine (Bld) [Mass ratio] 19 [facility] Drug Scr, Abuse, Uron 2021 Amphetamine(s),Ur Negative Normal NEG [facility] Comment on above: Performed By: #### D AU #### [facility] [address] [place] [address] [place] [address] Director Of Product Design: Morro Hale MD Barbiturate(s),Ur Negative Normal NEG [facility] Comment on above: Performed By: #### D AU #### [facility] [address] [place] [address] [place] [address] Director Of Product Design: Morro Hale MD Benzodiazepine(s) Negative Normal NEG [facility] Comment on above: Performed By: #### D AU #### [facility] [address] [place] [address] Director Of Product Design: Morro Hale MD Buprenorphrine, Ur Negative Normal NEG [facility] Comment on above: Performed By: #### D AU #### [facility] [address] [place] [address] Director Of Product Design: Morro Hale MD Cannabinoid(s),Ur Negative Normal NEG [facility] Comment on above: Performed By: #### D AU #### [facility] [address] [place] [address] Director Of Product Design: Morro Hale MD Cocaine Metabolite Negative Normal [facility] Comment on above: Performed By: #### D AU #### [facility] [address] [place], [place] [id number] Director Of Product Design: Morro Hale MD Methadone Ql (U) Negative Normal NEG [facility] Comment on above: Performed By: #### D AU #### [facility] [address] [place], [place] [id number] Director Of Product Design: Morro Hale MD Methamphetamine, Ur Negative Normal NEG [facility] Comment on above: Performed By: #### D AU #### [facility] [address] [place], [place] [id number] Director Of Product Design: Morro Hale MD Opiate(s), Ur Negative Normal [facility] Comment on above: Performed By: #### D AU #### [facility] [address] [place], [place] [id number] Director Of Product Design: Morro Hale MD Oxycodone, Urine Negative Normal [facility] Comment on above: Performed By: #### D AU #### [facility] [address] [place], [place] [id number] Director Of Product Design: Morro Hale MD Phencyclidine, Ur Negative Normal NEG [facility] Comment on above: Performed By: #### D AU #### [facility] [address] [place], [place] [address]83 Director Of Product Design: Morro Hale MD Propoxyphene,Urine Negative Normal NEG [facility] Comment on above: Performed By: #### D AU #### [facility] [address] [place], [place] [id number] Director Of Product Design: Morro Hale MD Tricyclic antidepressants Screen Ql (U) Negative Normal NEG [facility] Comment on above: Result Comment: Drug screen results are to be used for medical purposes only. All positive results are unconfirmed. Testing for employment or legal uses should be sent to a reference laboratory for confirmation. Performed By: #### D AU #### [facility] [address] [place] [address] Director Of Product Design: Morro Hale MD Fibrinogenon 10-12-2021 Fibrinogen 572 mg/dL High 179-518 [facility] Comment on above: Performed By: #### U RTPRT #### [facility] [address] [place] [address] Director Of Product Design: Morro Hale MD Fibrinogen 572 mg/dL High 179 - 518 mg/dL [facility] Interpretation and review of laboratory results Abnormal [facility] Glucose, Whole Bloodon 10-12 Glucose [Mass/Vol] 229 mg/dL High 74 - 100 mg/dL [facility] Interpretation and review of laboratory results Abnormal [facility] Glucose [Mass/Vol] 216 mg/dL High 74 - 100 mg/dL [facility] Interpretation and review of laboratory results Abnormal [facility] Glucose [Mass/Vol] 129 mg/dL High 74 - 100 mg/dL [facility] Interpretation and review of laboratory results Abnormal [facility] - Chemistry and C hemistry - challengeon 10-12-2021 GFR/1.73 sq M.predicted MDRD (S/P/Bld) [Vol rate/Area] [facility] Comment on above: Average GFR for 30-3 9 years old: 107 mL/min/1.73sq m Chronic Kidney Disease: <60 mL/min/1.73sq m Kidney failure: <15 mL/min/1.73sq m eGFR calculated using average adult body mass. Additional eGFR calculator available at: http://www.[employer]Data.[place]/multiple_crcl_2012.htm Stage 1: Some kidney damage normal GFR Stage 2: Mild kidney damage GFR 60-89 Stage 3: Moderate kidney damage GFR 30-59 Stage 4: Severe kidney damage GFR 15-29 Stage 5: Severe kidney damage GFR <15 ESRD - chronic treatment by dialysis or transplant Lactate Dehydrogenaseon 04-0 LDH [Catalytic activity/Vol] 194 U/L Normal 135-214 [facility] Comment on above: Performed By: #### U RTPRT #### [facility] [address] [place] [address] Director Of Product Design: Morro Hale MD LD 194 U/L 135 - 214 U/L [facility] Magnesiumon 10-12-2021 Interpretation and review of laboratory results Abnormal [facility] Magnesium [Mass/Vol] 4.1 mg/dL Critically high 1.6 - 2.6 mg/dL [facility] Magnesium [Mass/Vol] 4.0 mg/dL Critically high 1.6-2.6 [facility] Comment on above: Performed By: #### M G #### [facility] [address] [place] [address] [place] [address] Director Of Product Design: Morro Hale MD Interpretation and review of laboratory results Abnormal [facility] Magnesium [Mass/Vol] 4.0 mg/dL Critically high 1.6 - 2.6 mg/dL [facility] No Panel Informationon 10-12 [facility] OPERATIVE REPORTon OPERATIVE REPORT [address] [address] OPERATIVE REPORT PATIENT NAME: SOLANGE MURPHY : 1985 MED REC NO: [id number] ROOM: 0203 ACCOUNT NO: [id number] ADMIT DATE: 10/12/2021 PROVIDER: Kang Panda MD DATE OF PROCEDURE: 10/12/2021 ADDENDUM OWNER/OPERATOR: ELINOR Chambers MD [email or web address] Doc#: [id number] Normal [facility] OPERATIVE REPORT [address] [address] OPERATIVE REPORT PATIENT NAME: STAS MURPHYMIRIAN Silvestre : 1985 MED REC NO: [id number] ROOM: 0203 ACCOUNT NO: [id number] ADMIT DATE: 10/12/2021 PROVIDER: Kang Panda MD DATE OF PROCEDURE: 10/12/2021 PREOPERATIVE [...] low-transverse uterine segment with bilateral salpingectomy. SURGEON: Kang Panda M.D. ANESTHESIA: Spinal. 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 head was elevated. Fundal pressure [...] as well. Cord was clamped and cut. handed off to nursing and flat surfacer who attended the delivery. Cord blood specimen [...] instrument counts are noted to be correct. KANG PANDA MD [email or web address] Doc#: [id number] CC: Normal [facility] PTon 10-12-2021 INR Coag (PPP) [Relative time] 1.0 {INR} [facility] Comment on above: Result Comment: Non-therapeutic Range: INR = 0.9-1.2 Therapeutic Range: Moderate Anticoagulant Intensity: INR = 2.0-3.0 High Anticoagulant Intensity: INR = 2.5-3.5 Performed By: #### U RTPRT #### [address] [place], [place] [id number] Director Of Product Design: Morro Hale MD PT Coag (PPP) [Time] 13.1 s Normal 11.5-14.2 [facility] Comment on above: Performed By: #### U RTPRT #### [address] [place], [place] [address]83 Director Of Product Design: Morro Hale MD Protein / Creatinine Ratio, Urineon 10-12-2021 Creatinine, Ur 51.4 mg/dL 28.0 - 217.0 mg/dL [facility] Protein (U) [Mass/Vol] 5 mg/dL [facility] Comment on above: No normal range esta blished. Urine Total Protein Creatinine Ratio 0.10 [facility] Protein,Tot,[place] Uron 2021 Creatinine [Mass/Vol] 51.4 mg/dL Normal 28.0-217.0 [facility] Comment on above: Performed By: #### U RTPRT #### [address] [place], [place] [id number] Director Of Product Design: Morro Hale MD Tot Prot. Conc. 5 mg/dL Normal [facility] Comment on above: Result Comment: No n ormal range established. Performed By: #### U RTPRT #### [address] [place], [place] [id number] Director Of Product Design: Morro Hale MD TP/Cre Ratio 0.10 Normal 0.00-0.20 [facility] Comment on above: Performed By: #### U RTPRT #### [address] [place], [place] [id number] Director Of Product Design: Morro Hale MD Protime-INRon 10-12-2021 INR Coag (Bld) [Relative time] 1.0 {INR} [facility] Comment on above: Non-therapeutic Range: INR = 0.9-1.2 Therapeutic Range: Moderate Anticoagulant Intensity: INR = 2.0-3.0 High Anticoagulant Intensity: INR = 2.5-3.5 PT Coag (PPP) [Time] 13.1 s [facility] Surgical Pathologyon 022 Surgical Pathology (NOTE) -- Diagnosis -- A. LEFT FALLOPIAN TUBE, SALPINGECTOMY: -NO PATHOLOGIC DIAGNOSIS B. RIGHT FALLOPIAN TUBE, SALPINGECTOMY: -NO PATHOLOGIC DIAGNOSIS C. THIRD TRIMESTER TYPE PLACENTA (675 G) DEMONSTRATING: -TWO-VESSEL HYPER SPIRALED UMBILICAL CORD -UNREMARKABLE PLACENTAL MEMBRANES -THIRD TRIMESTER TYPE PLACENTAL DISC DEMONSTRATING NO SIGNIFICANT HISTOPATHOLOGIC FEATURES Murphy Valle D.O. Electronically Signed [facility] Clinical Information Operative Findings: L TUBE; [...] SURGICAL PATHOLOGY CONSULTATION Patient Name: SOLANGE MURPHY [facility] Rec: [id number] Path Number: [id number] [facility] ANATOMIC PATHOLOGY [address] [place] [address]. [place], [place] [address] Normal [facility] Comment on above: Performed By: #### M G #### [facility] [address] [place] [address] [place] [address] Director Of Product Design: Morro Hale MD TYPE AND SCREENon 10-12-2021 ABO/Rh Positive [facility] Arm Band Number [id number] [facility] Expiration Date 10/15/2021,[address] [facility] Type + Screenon 10-12-2021 Type + Screen Sample Expiration 10/15/2021,2359 Arm Band Number [id number] ABO/Rh(D) O POSITIVE Antibody Screen NEGATIVE [facility] Comment on above: Performed By: #### T YS #### [facility] [address] [place] [address] Director Of Product Design: Morro Hale MD Uric Acidon 10-12-2021 Urate [Mass/Vol] 4.4 mg/dL Normal 2.4-5.[address] [facility] Comment on above: Performed By: #### U RTPRT #### [facility] [address] [place] [address] Director Of Product Design: Morro Hale MD Urate [Mass/Vol] 4.4 mg/dL 2.4 - 5.7 mg/dL [facility] Urinalysison 10-12-2021 Bilirubin Urine Negative NEGATIVE [facility] Color, UA Yellow Yellow [facility] Glucose, Ur Negative NEGATIVE [facility] Ketones Ql (U) Negative NEGATIVE [facility] Leukocyte esterase Test strip Ql (U) Negative NEGATIVE [facility] Nitrite, Urine Negative NEGATIVE [facility] pH, UA 6.0 [facility] Protein, UA Negative NEGATIVE [facility] Specific [place], UA 1.015 [facility] Turbidity UA Clear Clear [facility] Urine Hgb Negative NEGATIVE [facility] Urobilinogen, Urine Normal Normal [facility] Urinalysis, Routineon 2021 Bilirubin, SemiQt,Ur Negative Normal NEG [facility] Comment on above: Performed By: #### M G #### [facility] [address] [place] [address] [place] [address] Director Of Product Design: Morro Hale MD Blood, Urine Negative Normal NEG [facility] Comment on above: Performed By: #### M G #### [facility] [address] [place] [address] Dr. [place], [facility] Director Of Product Design: Morro Hale MD Clarity (U) Clear Normal CLEAR [facility] Comment on above: Performed By: #### M G #### [address] [place], [facility] Director Of Product Design: Morro Hale MD Color (U) Yellow Normal YEL [facility] Comment on above: Performed By: #### M G #### [facility] [address] [place], [facility] Director Of Product Design: Morro Hale MD Glucose Ql (U) Negative Normal NEG [facility] Comment on above: Performed By: #### M G #### [facility] [address] [place] [address] [place] [address] Director Of Product Design: Morro Hale MD Ketones Ql (U) Negative Normal [facility] Comment on above: Performed By: #### M G #### [facility] [address] [place], [place] [id number] Director Of Product Design: Morro Hale MD Leukocyte esterase Test strip Ql (U) Negative Normal NEG [facility] Comment on above: Performed By: #### M G #### [facility] [address] [place], [place] [id number] Director Of Product Design: Morro Hale MD Nitrite,Ur Negative Normal NEG [facility] Comment on above: Performed By: #### M G #### [facility] [address] [place], [place] 1500783 Director Of Product Design: Morro Hale MD PH,Ur 6.0 Normal 5.0-9.0 [facility] Comment on above: Performed By: #### M G #### [facility] [address] [place] [address] Dr. [place], [place] [id number] Director Of Product Design: Morro Hale MD Protein Ql (U) Negative Normal NEG [facility] Comment on above: Performed By: #### M G #### [facility] [address] [place] [address] Dr. [place], [place] [id number] Director Of Product Design: Morro Hale MD Spec. [place],Ur 1.015 Normal 1.010-1.02 0 [facility] Comment on above: Performed By: #### M G #### [facility] [address] [place] [address] Dr. [place], [place] [id number] Director Of Product Design: Morro Hale MD Urobilinogen,Ur Normal Normal NORM [facility] Comment on above: Performed By: #### M G #### [facility] [address] [place], [place] 1967383 Director Of Product Design: Morro Hale MD Urine Drug Screenon 10-13-19 22 Amphetamine Screen, Ur Negative NEGATIVE [facility] Barbiturate Screen, Ur Negative NEGATIVE [facility] Benzodiazepine Screen, Urine Negative NEGATIVE [facility] Buprenorphine Urine Negative NEGATIVE [facility] Cannabinoid Scrn, Ur Negative NEGATIVE [facility] Cocaine Metabolite, Urine Negative NEGATIVE [facility] Methadone Screen, Urine Negative NEGATIVE [employer] Methamphetamine, Urine Negative NEGATIVE [employer] Opiates, Urine Negative NEGATIVE [facility] Oxycodone Screen, Ur Negative NEGATIVE [employer] Phencyclidine, Urine Negative NEGATIVE [employer] Propoxyphene, Urine Negative NEGATIVE [employer] Tricyclic Antidepressants, Urine Negative NEGATIVE [facility] Comment on above: Drug screen results are to be used for medical purposes only. All positive results are unconfirmed. Testing for employment or legal uses should be sent to a reference laboratory for confirmation. [employer] GBS, External Resulton 09-26 GBS, External Result Positive [employer] Work Phone: Verified with Jacqueline Manuel RN [employer] Work Phone: [employer] Work Phone: US Biophysical Profileon US Biophysical Profile FINDINGS: Breathing Movements2 Gross Body Movements 2 Tone2 Qualitative amniotic fluid volume2 A single, viable intrauterine is present. Heart rate 128 bpm. Cervix is closed 4.0 cm. Cephalic presentation, posterior fundal placenta, Grade 2. IMPRESSION: Posterior fundal placenta Grade 2 and normal biophysical profile. Report reported and signed by Ruben Howell on 09/26/2021 1028 Normal [facility] OB Limitedon 09-26-2021 OB Limited FINDINGS: Comparsion made with prior [...] by Ruben Howell on 09/26/2021 0933 Normal [facility] OB Limitedon 09-18-2021 US OB Limited FINDINGS: [...] by Ruben Howell on 09/19/2021 0823 Normal [facility] [employer] CBC with Auto Differentialon 09-16-2021 Absolute Eos # 0.12 [facility] th Absolute Immature Granulocyte 0.10 [facility] Absolute Lymph # 2.[address] [facility] alth Absolute [place]ston # 0.62 [facility] lth Basophils (Bld) [#/Vol] 0.04 10*3/uL [facility] Basophils/100 WBC (Bld) 0 % 0 - 2 % [facility] Eosinophils/100 WBC (Bld) 1 % 1 - 4 % [facility] Hematocrit (Bld) [Volume fraction] 35.0 % Low 36.3 - 47.1 % [facility] Hemoglobin.gastroin testinal spec 1 Ql (Stl) 11.2 g/dL Low 11.9 - 15.1 g/dL [facility] Immature granulocytes/100 WBC (Bld) 1 % High 0 [facility] Interpretation and review of laboratory results Abnormal [facility] Lymphocytes/100 WBC (Bld) 21 % Low 24 - 43 % [facility] MCH (RBC) [Entitic mass] 27.5 pg 25.2 - 33.5 pg [facility] MCHC (RBC) [Mass/Vol] 32.0 g/dL 28.4 - 34.8 g/dL [facility] MCV (RBC) [Entitic vol] 86.0 fL 82.6 - 102.[address] [facility] [employer] Monocytes/100 WBC (Bld) 5 % 3 - 12 % [facility] [employer] NRBC Automated 0.0 0.0 per [address] [facility] [employer] Platelet distribution width (Bld) [Ratio] 14.2 % 11.8 - 14.4 % [facility] [employer] Platelet mean volume (Bld) [Entitic vol] 9.6 fL 8.1 - 13.[address] [facility] [employer] Platelets (Bld) [#/Vol] 210 10*3/uL [facility] RBC (Bld) [#/Vol] 4.07 10*6/uL 3.95 - 5.11 m/uL [facility] Segmented neutrophils/100 WBC (Bld) 72 % High 36 - 65 % [facility] [employer] Segs Absolute 8.37 High [facility] WBC (Bld) [#/Vol] 11.7 10*3/uL High [facility] CBC with Diffon 09-16-2021 Abs. Basophil 0.04 k/uL Normal 0.00-0.20 [facility] Comment on above: Performed By: #### L Carla, YUMIKO, URI, CDP #### [facility] [address] [place] [address] Dr. [place], [place] [address] Director Of Product Design: Morro Hale MD Abs.Imm.Granulocyte 0.10 k/uL Normal 0.00-0.30 [facility] Comment on above: Performed By: #### Elliot Aguirre, YUMIKO, URI, CDP #### [address] [place] [address] Director Of Product Design: Morro Hale MD Abs.Neutrophil (Seg) 8.37 k/uL High 1.50-8.10 [facility] Comment on above: Performed By: #### L Carla, YUMIKO, URI, CDP #### [address] [place], [facility] Director Of Product Design: Morro Hale MD Basophils/100 WBC (Bld) 0 % Normal 0-2 [facility] Comment on above: Performed By: #### L YUMIKO Aguirre, URI, CDP #### [address] [place], [facility] Director Of Product Design: Morro Hale MD Eosinophils (Bld) [#/Vol] 0.12 10*3/uL Normal 0.00-0.44 [facility] Comment on above: Performed By: #### L Carla, YUMIKO, URI, CDP #### [address] [place], [place] [id number] Director Of Product Design: Morro Hale MD Eosinophils/100 WBC (Bld) 1 % Normal 1-4 [facility] Comment on above: Performed By: #### L Carla, CP, URI, CDP #### [facility] [address] [place], [facility] Director Of Product Design: Morro Hale MD Erythrocyte distribution width (RBC) [Ratio] 14.2 % Normal 11.8-14.4 [facility] Comment on above: Performed By: #### L D, CP, URI, CDP #### [facility] [address] [place], [place] [address] Director Of Product Design: Morro Hale MD Hematocrit (Bld) [Volume fraction] 35.0 % Low 36.3-47.1 [facility] Comment on above: Performed By: #### L Carla, CP, URI, CDP #### [address] [place], [place] [address] Director Of Product Design: Morro Hale MD Hemoglobin (Bld) [Mass/Vol] 11.2 g/dL Low 11.9-15.1 [facility] Comment on above: Performed By: #### L D, CP, URI, CDP #### [address] [place], [facility] Director Of Product Design: Morro Hale MD Immature granulocytes/100 WBC (Bld) 1 % High 0 [facility] Comment on above: Performed By: #### L Carla, YUMIKO, URI, CDP #### [address] [place], [place] [address] Director Of Product Design: Morro Hale MD Lymphocytes (Bld) [#/Vol] 2.44 10*3/uL Normal 1.10-3.70 [facility] Comment on above: Performed By: #### L D, CP, URI, CDP #### [facility] [address] [place], [facility] Director Of Product Design: Morro Hale MD Lymphocytes/100 WBC (Bld) 21 % Low 24-43 [facility] Comment on above: Performed By: #### L D, CP, URI, CDP #### [facility] [address] [place], [facility] Director Of Product Design: Morro Hale MD MCH (RBC) [Entitic mass] 27.5 pg Normal 25.2-33.5 [facility] Comment on above: Performed By: #### L Carla, YUMIKO, URI, CDP #### [facility] [address] [place], [place] [address] Director Of Product Design: Morro Hale MD MCHC (RBC) [Mass/Vol] 32.0 g/dL Normal 28.4-34.8 [facility] Comment on above: Performed By: #### Elliot Aguirre CP, URI, CDP #### [address] [place], [place] [address] Director Of Product Design: Morro Hale MD MCV (RBC) [Entitic vol] 86.0 fL Normal 82.6-102.9 [facility] Comment on above: Performed By: #### L YUMIKO Aguirre, URI, CDP #### [address] [place], [place] [address] Director Of Product Design: Morro Hale MD Monocytes (Bld) [#/Vol] 0.62 10*3/uL Normal 0.10-1.20 [facility] Comment on above: Performed By: #### L YUMIKO Aguirre, URI, CDP #### [address] [place], [place] [address] Director Of Product Design: Morro Hale MD Monocytes/100 WBC (Bld) 5 % Normal 3-12 [facility] Comment on above: Performed By: #### L YUMIKO Aguirre, URI, CDP #### [address] [place], [facility] Director Of Product Design: Morro Hale MD Neutrophil (Seg) 72 % High 36-[address] [facility] Comment on above: Performed By: #### L Carla, YUMIKO, URI, CDP #### [facility] [address] [place], [place] [id number] Director Of Product Design: Morro Hale MD NRBC Automated 0.0 per 100 WBC Normal 0.0 [facility] Comment on above: Performed By: #### L Carla, CP, URI, CDP #### [facility] [address] [place], [place] [id number] Director Of Product Design: Morro Hale MD Platelet mean volume (Bld) [Entitic vol] 9.6 fL Normal 8.1-13.5 [facility] Comment on above: Performed By: #### L Carla, YUMIKO, URI, CDP #### [address] [place], [place] [id number] Director Of Product Design: Morro Hale MD Platelets (Bld) [#/Vol] 210 10*3/uL Normal 138-453 [facility] Comment on above: Performed By: #### Elliot Aguirre CP, URI, CDP #### [address] [place], [place] [address]83 Director Of Product Design: Morro Hale MD RBC (Bld) [#/Vol] 4.07 10*6/uL Normal 3.95-5.11 [facility] Comment on above: Performed By: #### L YUMIKO Aguirre, URI, CDP #### [address] [place] [address] Director Of Product Design: Morro Hale MD WBC (Bld) [#/Vol] 11.7 10*3/uL High 3.5-11.3 [facility] Comment on above: Performed By: #### L YUMIKO Aguirre, URI, CDP #### [facility] [address] [place], [place] [id number] Director Of Product Design: Morro Hale MD Comp Metabolic Profon 2021 (cont.) Normal [facility] Comment on above: Result Comment: Aver age GFR for 30-39 years old: 107 mL/min/1.73sq m Chronic Kidney Disease: <60 mL/min/1.73sq m Kidney failure: <15 mL/min/1.73sq m eGFR calculated using average adult body mass. Additional eGFR calculator available at: http://www.[employer]/multiple_crcl_2012.htm Performed By: #### L Carla, CP, URI, CDP #### [facility] [address] [place] [address] Dr. [place], [place] [id number] Director Of Product Design: Morro Hale MD Albumin [Mass/Vol] 3.4 g/dL Low 3.5-5.2 [facility] Comment on above: Performed By: #### L YUMIKO Aguirre, URI, CDP #### [address] [place], [place] 4763683 Director Of Product Design: Morro Hale MD Albumin/Glob Ratio 1.2 Normal 1.0-2.5 [facility] Comment on above: Performed By: #### L Carla, YUMIKO, URI, CDP #### [address] [place], [place] [id number] Director Of Product Design: Morro Hale MD Alkaline Phos 98 U/L Normal 35-104 [facility] Comment on above: Performed By: #### L Carla, CP, URI, CDP #### [facility] [address] [place] [address] Dr. [place], [place] [id number] Director Of Product Design: Morro Hale MD ALT [Catalytic activity/Vol] 10 U/L Normal 5-33 [facility] Comment on above: Performed By: #### L Carla, YUMIKO, URI, CDP #### [facility] [address] [place] [address] Director Of Product Design: Morro Hale MD Anion gap [Moles/Vol] 8 mmol/L Low 9-17 [facility] Comment on above: Performed By: #### L D, CP, URI, CDP #### [facility] [address] [place], [place] 9[address]83 Director Of Product Design: Morro Hale MD AST [Catalytic activity/Vol] 13 U/L Normal <32 [facility] Comment on above: Performed By: #### L D, CP, URI, CDP #### [facility] [address] [place], [place] 174[address]83 Director Of Product Design: Morro Hale MD Bilirubin [Mass/Vol] 0.17 mg/dL Low 0.3-1.2 [facility] Comment on above: Performed By: #### L D, CP, URI, CDP #### [address] [place], [place] [address]188683 Director Of Product Design: Morro Hale MD BUN/CRE Ratio 21 High 9-20 [facility] Comment on above: Performed By: #### L D, CP, URI, CDP #### [address] [place], [place] 061[address]83 Director Of Product Design: Morro Hale MD Calcium [Mass/Vol] 9.1 mg/dL Normal 8.6-10.4 [facility] Comment on above: Performed By: #### L D, CP, URI, CDP #### [address] [place], [place] 8404683 Director Of Product Design: Morro Hale MD Chloride [Moles/Vol] 103 mmol/L Normal 98-107 [facility] Comment on above: Performed By: #### L D, CP, URI, CDP #### [address] [place], [place] 8530483 Director Of Product Design: Morro Hale MD CO2 [Moles/Vol] 24 mmol/L Normal 20-31 [facility] Comment on above: Performed By: #### L D, CP, URI, CDP #### [address] [place] [address] Director Of Product Design: Morro Hale MD Creatinine [Mass/Vol] 0.48 mg/dL Low 0.50-0.90 [facility] Comment on above: Performed By: #### L D, CP, URI, CDP #### [facility] [address] [place], [place] 6508983 Director Of Product Design: Morro Hale MD GFR, Amer >60 Normal >[address] [facility] Comment on above: Performed By: #### L D, CP, URI, CDP #### [facility] [address] [place], [place] 5496183 Director Of Product Design: Morro Hale MD GFR,non Amer >60 Normal >60 [facility] Comment on above: Performed By: #### L D, CP, URI, CDP #### [facility] [address] [place], [place] 1104783 Director Of Product Design: Morro Hale MD Glucose [Mass/Vol] 162 mg/dL High 70-99 [facility] Comment on above: Performed By: #### L D, CP, URI, CDP #### [facility] [address] [place] [address] [place] [place], [place] [id number] Director Of Product Design: Morro Hale MD Potassium [Moles/Vol] 3.9 mmol/L Normal 3.7-5.3 [facility] Comment on above: Performed By: #### L D, CP, URI, CDP #### [facility] [address] [place], [place] [id number] Director Of Product Design: Morro Hale MD Protein [Mass/Vol] 6.2 g/dL Low 6.4-8.3 [facility] Comment on above: Performed By: #### L D, CP, URI, CDP #### [facility] [address] [place] [address] Director Of Product Design: Morro Hale MD Sodium [Moles/Vol] 135 mmol/L Normal 135-144 [facility] Comment on above: Performed By: #### Elliot Aguirre, YUMIKO, FABIOLAI, CDP #### [facility] [address] [place] [address] Director Of Product Design: Morro Hale MD Staging: Normal [facility] Comment on above: Result Comment: Stag e 1: Some kidney damage normal GFR Stage 2: Mild kidney damage GFR 60-89 Stage 3: Moderate kidney damage GFR 30-59 Stage 4: Severe kidney damage GFR 15-29 Stage 5: Severe kidney damage GFR <15 ESRD - chronic treatment by dialysis or transplant Performed By: #### Elliot Aguirre CP, JOHN, CDP #### [facility] [address] [place] [address] Director Of Product Design: Morro Hale MD Urea nitrogen [Mass/Vol] 10 mg/dL Normal 6-20 [facility] Comment on above: Performed By: #### Elliot Aguirre CP, JOHN, CDP #### [facility] [address] [place] [address] Director Of Product Design: Morro Hale MD Comprehensive Metabolic Pane [facility] 09-16-2021 Albumin [Mass/Vol] 3.4 g/dL Low 3.5 - 5.2 g/dL [facility] Albumin/Globulin [Mass ratio] 1.2 {ratio} [facility] ALP (Bld) [Catalytic activity/Vol] 98 U/L 35 - 104 U/L [facility] ALT [Catalytic activity/Vol] 10 U/L 5 - 33 U/L [facility] Anion gap [Moles/Vol] 8 mmol/L Low 9 - 17 mmol/L [facility] AST [Catalytic activity/Vol] 13 U/L <32 [facility] Bilirubin [Mass/Vol] 0.17 mg/dL Low 0.3 - 1.2 mg/dL [facility] Calcium [Mass/Vol] 9.1 mg/dL 8.6 - 10. 4 mg/dL [facility] Chloride [Moles/Vol] 103 mmol/L 98 - 107 mmol/L [facility] CO2 [Moles/Vol] 24 mmol/L 20 - 31 mmol/L [facility] Creatinine [Mass/Vol] 0.48 mg/dL Low 0.50 - 0.90 mg/dL [facility] Free PSA/Total PSA [Mass fraction] 6.2 g/dL Low 6.4 - 8.3 g/dL [facility] GFR >60 >60 mL/min [facility] GFR Non- >60 >60 mL/min [facility] Glucose [Mass/Vol] 162 mg/dL High 70 - 99 mg/dL [facility] Interpretation and review of laboratory results Abnormal [facility] Potassium [Moles/Vol] 3.9 mmol/L 3.7 - 5.3 mmol/L [facility] Sodium [Moles/Vol] 135 mmol/L 135 - 144 mmol/L [facility] Urea nitrogen (BldV) [Mass/Vol] 10 mg/dL 6 - 20 mg/dL [facility] Urea nitrogen/Creatinine (Bld) [Mass ratio] 21 High [facility] Laboratory - Chemistry and C hemistry - challengeon 09-16-2021 GFR/1.73 sq M.predicted MDRD (S/P/Bld) [Vol rate/Area] [facility] Comment on above: Average GFR for 30-3 9 years old: 107 mL/min/1.73sq m Chronic Kidney Disease: <60 mL/min/1.73sq m Kidney failure: <15 mL/min/1.73sq m eGFR calculated using average adult body mass. Additional eGFR calculator available at: http://www.SkyCache/multiple_crcl_2012.htm Stage 1: Some kidney damage normal GFR Stage 2: Mild kidney damage GFR 60-89 Stage 3: Moderate kidney damage GFR 30-59 Stage 4: Severe kidney damage GFR 15-29 Stage 5: Severe kidney damage GFR <15 ESRD - chronic treatment by dialysis or transplant Lactate Dehydrogenaseon 09-05 LDH [Catalytic activity/Vol] 174 U/L Normal 135-214 [facility] Comment on above: Performed By: #### L D, CP, URI, CDP #### [facility] [address] [place] [address] Director Of Product Design: Morro Hale MD LD 174 U/L 135 - 214 U/L [facility] No Panel Informationon 09-16 [facility] Protein / Creatinine Ratio, Urineon 09-16-2021 Creatinine, Ur 93.8 mg/dL 28.0 - 217.0 mg/dL [facility] Protein (U) [Mass/Vol] 7 mg/dL [facility] Comment on above: No normal range esta blished. Urine Total Protein Creatinine Ratio 0.07 [facility] Protein,Tot,[place] [facility]ron 2021 Creatinine [Mass/Vol] 93.8 mg/dL Normal 28.0-217.0 [facility] Comment on above: Performed By: #### U RTPRT #### [facility] [address] [place], [place] [id number] Director Of Product Design: Morro Hale MD Tot Prot. Conc. 7 mg/dL Normal [facility] Comment on above: Result Comment: No n ormal range established. Performed By: #### U RTPRT #### [facility] [address] [place], [place] [id number] Director Of Product Design: Morro Hale MD TP/Cre Ratio 0.07 Normal 0.00-0.20 [facility] Comment on above: Performed By: #### U RTPRT #### [facility] [address] [place], [place] [id number] Director Of Product Design: Morro Hale MD Uric Acidon 09-16-2021 Urate [Mass/Vol] 2.8 mg/dL Normal 2.4-5.[address] [facility] Comment on above: Performed By: #### L D, CP, URI, CDP #### [facility] [address] [place], [place] [id number] Director Of Product Design: Morro Hale MD Urate [Mass/Vol] 2.8 mg/dL 2.4 - 5.7 mg/dL [facility] US OB Limitedon 09-07-2021 US OB Limited FINDINGS: Single viable intrauterine . BEN 17.0 cm. Closed cervix 4.3 cm length. Cephalic presentation. IMPRESSION: 1. Single viable intrauterine , cephalic presentation. 2. BEN 17.0 cm. Report reported and signed by Ruben Howell on 09/07/2021 1019 Normal [facility] Home Service Advisor COVID Quick Testingon 2020 Result Negative [employer] Other Quick Strepon 06-14-2021 S. pyogenes Org specific cx Ql (Throat) Negative [facility] Other Quick Strep [employer] Other [facility] LABon 04-19-2021 MISC LAB Normal [facility] Comment on above: Order Comment: [place] [place] Name: INHERITEST CARRIER SCREEN [id number] CPT 57557;31038;12068 Result Comment: See report. Scanned copy available in EMR. PERFORMED BY: [place] [address] PATHOLOGIST [employer] PRESS OPERATOR FILEMON VARGAS M.D. Performed By: #### [facility] #### [address] ABO, External Resulton 03-22 ABO, External Result o [employer] Phone: C. Trachomatis, External Res [facility] 03-22-2021 C. Trachomatis, External Result Negative [employer] Phone: HIV, External Resulton 03-22 HIV, External Result Non-Reactive [employer] Phone: Hepatitis B, External Result on 03-22-2021 Hep B, External Result Non-Reactive [employer] Phone: N. Gonorrhoeae, External Res [facility] 03-22-2021 N. Gonorrhoeae, External Result Negative [employer] Phone: No Panel InformationOrdered By: Nerissa Lerma on 03-22-2021 [employer] No Panel Informationon 03-22 Verified with Jacqueline Manuel RN [employer] Phone: [employer] Phone: RPR, External Labon 03-22-20 21 RPR, External Result Non-Reactive [employer] Work Phone: Rh Factor, External ResultOr dered By: Nerissa Lerma on 03-22-2021 [employer] Factor, External Result + [employer] Rubella Titer, External Resu lton 03-22-2021 Rubella Titer, External Result immune [employer] Work Phone: Coding Summaryon 04-23-2017 Coding Summary CODING DATE: 017 [facility] STATUS: Home PAYOR: [employer] ADMIT DX: [...] Mccracken Date Saved: 04/23/2017 01:25 pm Normal [facility] ED Clinical Summaryon 2016 ED Clinical Summary [facility] ? Urgent [id number] [place], [place] [id number] clinical SummaryPERSON INFORMATIONName: SOLANGE BROWER Age: 32 Years Sex: FEMALEDOB: [birth year] MRN: Acct#:Visit Reason: Lower leg pain-swelling; LEFT LEG PAIN AND SWELLING Arrival:04/12/17 12:10:00 Discharge: 04/12/17 12:37:00LOS: 000 00:27 Check In: 04/12/17 12:10:00 Checkout: 04/12/17 12:37:00Address:[address] [place] [id number]: Henry Page INFORMATIONProvider Role Assigned UnassignedBentley Amin PA-C ED PA 04/12/17 12:23:22VITALS INFORMATIONVital Sign Triage LatestTemperature TympanicTemperature Temporal ArteryPulse Rate 97 bpm 97 bpmO2 Sat 98 % 98 %Respiratory Rate 20 br/min 20 br/minBlood Pressure 120 mmHg/90 mmHg 120 mmHg/90 mmHgMEDICAL INFORMATIONMedications Given:Allergy Information:PHYSICIAN DOCUMENTATIONDISCHARGE INFORMATION:Discharge Disposition: HomeDischarge Location: HomePATIENT EDUCATION INFORMATIONInstructions: Muscle Strain, Uiag-td-MlycHyuvwg-Up:With: Address: When:Rober Loya [address] [place] [address], [address] [place], [phone] Business (2) Within 3 to 5 days, only if neededWith: Address: When:Edward Page [address] [place] [address] Business (1) Within 3 to 5 daysDIAGNOSIS:Muscle strain of lower legComment: [facility] ED Note - Physicianon 2016 ED Note - Physician Patient: NILTON BROWER : 32 years Sex: FEMALE : [birth year]Associated Diagnoses: Muscle strain of lower legAuthor: Bentley Amin-CHistory of Present IllnessThis is a 32 year old here today with concerns of feeling a pop in her calf while bending 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 [...] mmHg SpO2 98 % O2 Flow 0 L/min.Yccwxkastvwm67/06/17 12:15 EDT Height/Length Dosing 157.4 cm Weight [...] ice and elevate. OTC Motrin for pain, [place] as needed for severe pain. Return with new, or worsening symptoms, or symptoms failing to improve as expected and the patient voiced their understanding. Questions answered. Follow-up with their family doctor as directed, return here sooner as needed. See ortho as needed.Impression and PlanDiagnosisMuscle strain of lower leg ([id number] S86.919A, Discharge, Medical)PlanCondition: Stable.Disposition: Discharged: Time 04/12/17 12:36:00, to home.Prescriptions: Launch prescriptionsPharmacy:[place] 5 mg-325 mg oral tablet (Prescribe): 1 tab(s), PO, q6hr, for 3 day(s), PRN: for pain, 12 tab(s), 0 Refill(s).Patient was given the following educational materials: Muscle Strain, Qdpv-wp-Kven, Muscle Strain, Ggpv-vc-Fzye.Follow up with: Edward Page Within 3 to [...] on: 04/12/2017 12:51 EDT] Bentley Amin PA-C [facility] ED Patient Summaryon 017 ED Patient Summary [facility] ? Urgent [address] [place] [address] [id number] pATIENT DISCHARGE INSTRUCTIONSPatient InformationName: SOLANGE BROWER Age: 32 YearsDate of : [birth year]MRN: [id number] For Visit: Lower leg pain-swelling; LEFT LEG PAIN AND SWELLINGArrival Time: 04/12/17 12:10:00Phone: Primary Care Physician: Edward PageAttlyle Physician: Bentley Aminomment:Patient EducationWith: Address: When:Rober Loya [address] [place], [phone] Business (2) Within 3 to 5 days, only if neededWith: Address: When:Edward Page [address] [place] [address] Business (1) Within 3 to 5 daysMuscle [...] Reviewed: 01/21/2014Luz [employer] Patient Education ?2016 [employer].Medication Information:The exam and treatment you received today in the [facility] Emergency Department were for an urgent problem and are not intended as complete care. It is important for you to follow up with a doctor, nurse practitioner, or physician?s assistant fitness manager for ongoing care. If your symptoms become [...] number so we can reach you if necessary.[facility] Emergency Department has provided you with a complete list of medications post discharge. Please inform your weight caller/provider of your visit and for further instruction on these medications. Any specific questions regarding your chronic medications and dosages should be discussed with your primary care physician(s) and/or pharmacist. New MedicationsPrinted Prescriptionsacetaminophen-h ydrocodone ([place] 5 mg-325 mg oral tablet) 1 tab(s) Oral Every 6 hours as needed for pain for 3 Days. Refills: 0.Visit InformationVisit Diagnosis:Diagnoses This Visit Lower leg pain-swelling ([id number]) Muscle strain of lower leg (S86.919A)If you [...] Disease Control and Prevention March 2014 Normal [facility] Urgent Care [place] 017 Urgent Care Record [facility] ? Urgent [address] [place] [address] pATIENT DISCHARGE INSTRUCTIONSPatient InformationName: SOLANGE BROWER Age: 32 YearsDate of : [birth year]MRN: [id number] For Visit: Lower leg pain-swelling; LEFT LEG PAIN AND SWELLINGArrival Time: 04/12/17 12:10:00Phone: Primary Care Physician: Pat Page Physician: Bentley Amin PA-CComment:Visit Diagnosis:Diagnoses This Visit Lower leg pain-swelling ([id number]) Muscle strain of lower leg (S86.913H)If you received any narcotics, sedation, or any [...] sign any legal documentsWith: Address: When:Rober Loya [address] [place] [address], [place], [phone] Business (2) Within 3 to 5 days, only if neededWith: Address: When:Edward Page [address] [place] [address] Business (1) Within 3 to 5 daysMedication Information:The exam and treatment you received today in the [facility] Urgent Care were for an urgent problem and are not intended as complete care. It is important for you to follow up with a doctor, nurse practitioner, or physician?s assistant fitness manager for ongoing care. If your symptoms become [...] number so we can reach you if necessary.[facility] Urgent Care has provided you with a complete list of medications post discharge. Please inform your weight caller/provider of your visit and for further instruction on these medications. Any specific questions regarding your chronic medications and dosages should be discussed with your primary care physician(s) and/or pharmacist. New MedicationsPrinted Prescriptionsacetaminophen-h ydrocodone ([place] 5 mg-325 mg oral tablet) 1 tab(s) [...] Reviewed: 01/21/2014Luz Maria Interactive Patient Education ?2016 [employer]. Viruses or BacteriaWhat?s got you sick?Antibiotics only [...] Antibiotics Jenn.S. Department of Health and Human ServicesAdena Pike Medical Centerers for Disease Control and Prevention March 2014 Normal [facility] Vital Signs Date Time Vital Sign Value Performing Clinician Facility 12-23-2023 15:270400 Body height 157.48 cm [facility] 12-23-2023 15:27-0400 Body mass index (BMI) [Ratio] 30.2 kg/m2 [facility] 12-23-2023 15:27-0400 Body weight 74.84 kg [facility] 12-23-2023 15:27-0400 Diastolic blood pressure 78 mm[Hg] [facility] 12-23-2023 15:27-0400 Heart rate 67 /min [facility] 12-23-2023 15:27-0400 Respiratory rate 12 /min [facility] 12-23-2023 15:27-0400 Systolic blood pressure 122 mm[Hg] [facility] 10-14-2021 07:24-0400 Body temperature 97.39 [degF] Bryanna Pool SECURITY NURSE - CNM Work Phone: [facility] 10-14-2021 07:24-0400 Diastolic blood pressure 75 mm[Hg] Bryanna Pool SECURITY NURSE - CNM Work Phone: [facility] 10-14-2021 07:24-0400 Heart rate 67 /min Bryanna Pool SECURITY NURSE - CNM Work Phone: [facility] 10-14-2021 07:24-0400 Respiratory rate 16 /min Bryanna Pool SECURITY NURSE - CNM Work Phone: [facility] 10-14-2021 07:24-0400 Systolic blood pressure 119 mm[Hg] Bryanna Pool SECURITY NURSE - CNM Work Phone: [facility] 10-13-2021 06:01-0400 SaO2% (BldA) [Mass fraction] 96 % Bryanna Pool SECURITY NURSE - CNM Work Phone: [facility] 10-12-2021 10:22-0400 Body mass index (BMI) [Ratio] 52.13 kg/m2 Bryanna Pool SECURITY NURSE - CNM Work Phone: [employer] 10-12-2021 10:22-0400 Body weight 129.28 kg Bryanna Pool SECURITY NURSE - CNM Work Phone: [employer] 10-07-2021 14:56-0400 Diastolic blood pressure 64 mm[Hg] Dianne Dang SECURITY NURSE - CNM Work Phone: [employer] 10-07-2021 14:56-0400 Heart rate 76 /min Dianne Dang SECURITY NURSE - CNM Work Phone: [employer] 10-07-2021 14:56-0400 Systolic blood pressure 123 mm[Hg] Dianne Rosaleso SECURITY NURSE - CNM Work Phone: [employer] 10-07-2021 14:23-0400 Respiratory rate 18 /min Dianne Dang SECURITY NURSE - CNM Work Phone: [employer] 09-30-2021 14:03-0400 Body height 157.5 cm Dianne Dang SECURITY NURSE - CNM Work Phone: [employer] 09-30-2021 14:03-0400 Body mass index (BMI) [Ratio] 51.58 kg/m2 Dianne Dang SECURITY NURSE - CNM Work Phone: [employer] 09-30-2021 14:03-0400 Body temperature 98.01 [degF] Dianne Rosaleso SECURITY NURSE - CNM Work Phone: [employer] 09-30-2021 14:03-0400 Body weight 127.91 kg Dianne Dang SECURITY NURSE - CNM Work Phone: [employer] 09-23-2021 15:35-0400 Body temperature 98.2 [degF] Dianne Floro SECURITY NURSE - CNM Work Phone: [employer] 09-23-2021 15:35-0400 Diastolic blood pressure 73 mm[Hg] Dianne Dang SECURITY NURSE - CNM Work Phone: [employer] 09-23-2021 15:35-0400 Heart rate 96 /min Dianne Rosaleso SECURITY NURSE - CNM Work Phone: [employer] 09-23-2021 15:35-0400 Respiratory rate 18 /min Dianne Connieo SECURITY NURSE - CNM Work Phone: [employer] 09-23-2021 15:35-0400 Systolic blood pressure 118 mm[Hg] Dianne Connieo SECURITY NURSE - CNM Work Phone: [employer] 09-16-2021 15:59-0500 Diastolic blood pressure 72 mm[Hg] Dianne Connieo SECURITY NURSE - CNM Work Phone: [employer] 09-16-2021 15:59-0500 Heart rate 77 /min Dianne Connieo SECURITY NURSE - CNM Work Phone: [employer] 09-16-2021 15:59-0500 Systolic blood pressure 141 mm[Hg] Dianne Rosaleso SECURITY NURSE - CNM Work Phone: [employer] 09-16-2021 14:25-0500 Body height 157.5 cm Dianne Rosaleso SECURITY NURSE - CNM Work Phone: [employer] 09-16-2021 14:25-0500 Body mass index (BMI) [Ratio] 49.38 kg/m2 Dianne Rosaleso SECURITY NURSE - CNM Work Phone: [employer] 09-16-2021 14:25-0500 Body temperature 97.81 [degF] Dianne Rosaleso SECURITY NURSE - CNM Work Phone: [employer] 09-16-2021 14:25-0500 Body weight 122.47 kg Dianne Rosaleso SECURITY NURSE - CNM Work Phone: [employer] 09-16-2021 14:25-0500 Respiratory rate 16 /min Dianne Rosaleso SECURITY NURSE - CNM Work Phone: [employer] 09-09-2021 14:06-0500 Diastolic blood pressure 68 mm[Hg] Dianne Dang APRN - CNM Work Phone: [employer] 09-09-2021 14:06-0500 Heart rate 78 /min Dianne Dang APRN - CNM Work Phone: [employer] 09-09-2021 14:06-0500 Systolic blood pressure 124 mm[Hg] Dianne Dang APRN - CNM Work Phone: [employer] 09-09-2021 14:04-0500 Body height 158.8 cm Dianne Dang APRN - CNM Work Phone: [employer] 09-09-2021 14:04-0500 Body mass index (BMI) [Ratio] 49.5 kg/m2 Dianne Dang APRN - CNM Work Phone: [employer] 09-09-2021 14:04-0500 Body temperature 98.01 [degF] Dianne Dang SECURITY NURSE - CNM Work Phone: [employer] 09-09-2021 14:04-0500 Body weight 124.74 kg Dianne Dang APRN - CNM Work Phone: [employer] 09-09-2021 14:04-0500 Respiratory rate 18 /min Dianne Dang APRN - CNM Work Phone: [employer] 06-14-2021 15:00-0500 Body height 157.48 cm Margie Fish Other [employer] Other 06-14-2021 15:00-0500 Body mass index (BMI) [Ratio] 45.72 kg/m2 Margie Fish Other [employer] Other 06-14-2021 15:00-0500 Body temperature 98.3 [degF] Margie Fish Other [employer] Other 06-14-2021 15:00-0500 Body weight 113.4 kg Margie Fish Other [employer] Other 06-14-2021 15:00-0500 Respiratory rate 18 /min Margie Fish Other [employer] Other 06-14-2021 15:00-0500 SaO2% (BldA) [Mass fraction] 98 % Margie Fish Other [employer] Other Encounters Encounter Date Encounter Type Care Provider Facility Start: 01-27-2024 ambulatory DIANNE DANG Not Jaclyn ilable Start: 01-13-2024 End: 01-13-2024 ambulatory CATA German [facility] Start: 12-29-2023 ambulatory EDWARD Armijo [facility] Start: 12-26-2023 [facility] Start: 12-23-2023 End: 12-23-2023 ambulatory [facility] Work Phone: Start: 12-23-2023 End: 12-23-2023 Patient encounter procedure [facility] Physician [facility] Work Phone: Start: 12-20-2023 End: 12-20-2023 ambulatory [facility] Start: 12-18-2023 ambulatory EDWARD Armijo [facility] Start: 12-18-2023 Non-patient / Non-visit [facility] Physician [facility] Work Phone: Start: 12-17-2023 End: 12-26-2023 Emergency department patient visit [facility] Start: 12-17-2023 Non-patient / Non-visit [facility] Physician [facility] Work Phone: Start: 12-16-2023 End: 12-16-2023 ambulatory DIANNE DANG Not Available Start: 05-03-2023 End: 05-03-2023 ambulatory Edward Page Other [employer] Other Start: 05-03-2023 Office outpatient vi sit 15 minutes Edward Page [facility] Start: 04-23-2023 End: 04-23-2023 ambulatory Edward Page Other [employer] Other Start: 04-23-2023 Telephone encounter Edward HAJI G [facility] Start: 04-22-2023 End: 04-22-2023 ambulatory Edward Page Other [employer] Other Start: 04-22-2023 Telephone encounter Edward HAJI G [facility] Start: 04-09-2023 End: 04-09-2023 ambulatory Edward Page Other [employer] Other Start: 04-09-2023 Office outpatient vi sit 15 minutes Edward Page [facility] Start: 09-20-2022 End: 09-20-2022 ambulatory Edward Page Other [employer] Other Start: 09-20-2022 Telephone encounter Edward HAJI G [facility] Start: 08-29-2022 End: 08-29-2022 ambulatory Edward Page Other [employer] Other Start: 08-29-2022 Office outpatient vi sit 15 minutes Edward Page [facility] Start: 08-17-2022 Telephone encounter Edward HAJI G [facility] Start: 08-17-2022 End: 08-18-[address] EDWARD PAGE Facility:[facility] Start: 08-17-2022 End: 08-18-2022 ambulatory BERTO ZIMMERMAN Facility:[facility] Start: 10-12-2021 End: 10-14-2021 Evaluation and management of inpatient BRYANNA BARTH [facility] Start: 10-12-2021 End: 10-14-2021 Evaluation and management of inpatient Bryannaconchis Barth SECURITY NURSE - CNM Work Phone: [facility] Comment on above: Born by sec tion (Primary Dx) Start: 10-07-2021 End: 10-07-2021 ambulatory [facility] Start: 10-07-2021 End: 10-07-2021 Subsequent hospital visit by physician Dianne Clark CNM Work Phone: [facility] Comment on above: Diet controlled gest ational diabetes mellitus (GDM) in third trimester Start: 09-30-2021 End: 09-30-2021 ambulatory [facility]NE FLORO [facility] Start: 09-30-2021 End: 09-30-2021 Subsequent hospital visit by physician Dianne Clark CNM Work Phone: [facility] Start: 09-23-2021 End: 09-23-2021 ambulatory [facility]NE FLORO [facility] Start: 09-23-2021 End: 09-23-2021 Subsequent hospital visit by physician Dianne Clark CNM Work Phone: [facility] Comment on above: Diet controlled gest ational diabetes mellitus (GDM) in third trimester Start: 09-16-2021 End: 09-16-2021 ambulatory DIANNE FLORO [facility] Start: 09-16-2021 End: 09-16-2021 Subsequent hospital visit by physician Dianne Clark CNM Work Phone: [facility] Delivery Comment on above: Diet controlled gest ational diabetes mellitus (GDM) in third trimester Start: 09-09-2021 End: 09-09-2021 ambulatory DIANNE FLORO [facility] Start: 09-09-2021 End: 09-09-2021 Subsequent hospital visit by physician Dianne Clark CNM Work Phone: [facility] Delivery Comment on above: Diet controlled gest ational diabetes mellitus (GDM) in third trimester Start: 09-02-2021 End: 09-02-2021 ambulatory DIANNE FLORO [facility] Start: 12-08-2021 (URG) Urgent Care Visit Margie Driscollmon d [facility] Jose Angel Start: 06-14-2021 End: 06-14-2021 ambulatory Margie Driscollmond Other [facility] Other Start: 04-12-2017 End: 04-12-2017 Ambulatory [facility] Facility:[facility] Procedures Date Procedure Procedure Detail Performing Clinician Start: 10-14-2021 GLUCOSE, WHOLE BLOOD Va lerie Floro SECURITY NURSE - CNM Work Phone: Start: 10-13-2021 GLUCOSE, WHOLE BLOOD Va lerie Floro SECURITY NURSE - CNM Work Phone: Start: 10-13-2021 GLUCOSE, WHOLE BLOOD Va lerie Floro SECURITY NURSE - CNM Work Phone: Start: 10-13-2021 GLUCOSE, WHOLE BLOOD Va lerie Floro SECURITY NURSE - CNM Work Phone: Start: 10-13-2021 Assay of magnesium [place] karo Floro SECURITY NURSE - CNM Work Phone: Start: 10-13-2021 Blood count hemoglobin Dianne Floro SECURITY NURSE - CNM Work Phone: Start: 10-13-2021 GLUCOSE, WHOLE BLOOD Va lerie Floro SECURITY NURSE - CNM Work Phone: Start: 10-13-2021 Assay of magnesium Mendy karo Floro SECURITY NURSE - CNM Work Phone: Start: 10-12-2021 GLUCOSE, WHOLE BLOOD Va lerie Floro SECURITY NURSE - CNM Work Phone: Start: 10-12-2021 GLUCOSE, WHOLE BLOOD Va lerie Floro SECURITY NURSE - CNM Work Phone: Start: 10-12-2021 GLUCOSE, WHOLE BLOOD Va lerie Floro SECURITY NURSE - CNM Work Phone: Start: 10-12-2021 Antibody screen Eveline Barth SECURITY NURSE - CNM Work Phone: Start: 10-12-2021 Blood typing serologic abo Bryanna Barth SECURITY NURSE - CN Work Phone: Start: 10-12-2021 End: 10-12-2021 Comprehensive metabolic panel Bryanna Barth SECURITY NURSE - [facility] Work Phone: Start: 10-12-2021 Drug screen class list a Bryanna Barth SECURITY NURSE - CN Work Phone: Start: 10-12-2021 Urnls dip stick/tabl et rgnt auto w/o microscopy Bryanna Barth SECURITY NURSE - CN Work Phone: Start: 10-07-2021 nonstress test Va tyler Dang SECURITY NURSE - [facility] Work Phone: Start: 09-26-2021 GBS, EXTERNAL RESULT Hi andrea Provider Start: 09-16-2021 End: 09-16-2021 Comprehensive metabolic panel Ai Burnham [facility] Work Phone: Start: 09-16-2021 nonstress test Va tyler Dang SECURITY NURSE - [facility] Work Phone: Start: 03-22-2021 ABO, EXTERNAL RESULT Hi debical Provider Start: 03-22-2021 C. TRACHOMATIS, EXTE RNAL RESULT Historical Provider Start: 03-22-2021 HEPATITIS B, EXTERNA L RESULT Historical Provider Start: 03-22-2021 HIV, EXTERNAL RESULT Hi andrea Provider Start: 03-22-2021 N. GONORRHOEAE, EXTE RNAL RESULT Historical Provider Start: 03-22-2021 RH FACTOR, EXTERNAL RESULT Historical Provider Start: 03-22-2021 RPR, EXTERNAL RESULT Hi storical Provider Start: 03-22-2021 RUBELLA TITER, EXTER NAL RESULT Historical Provider Plan of Treatment Date Care Activity Detail Author Start: 07-30-2028 DTaP/Tdap/Td vaccine (7 - Td or Tdap) DTaP/Tdap/Td vaccine (7 - Td or Tdap) [facility] Start: 10-12-2022 Creatinine measurement Creatinine mo [facility] Start: 10-12-2022 Potassium monitoring Potassium monit [facility] Start: 03-08-2022 Influenza vaccination Flu vacc ine (Season Ended) [facility] Start: 01-11-2022 Hemoglobin A1c measurement A1C test (Diabetic or Prediabetic) [facility] Start: 10-21-2021 End: 10-21-2021 Patient encounter procedure 10/21/2021 Appointment IP Unit [facility] Start: 10-18-2021 Subsequent hospital visit by physician 10/18/2021 Hospital Encounter Obstetrics and Gynecology Dianne Dang, SECURITY NURSE - CN [address] [place] [address] [facility] Labor [facility] Delivery Start: 10-17-2021 End: [...] Patient encounter procedure 09/23/2021 Appointment IP [facility] Start: 09-16-2021 End: 09-16-2021 Patient encounter procedure 09/16/2021 Appointment IP Unit [facility] Start: 2021 Diabetes screen Diabetes screen [facility] Start: 03-08-2021 Influenza vaccination Flu vaccine (# 1) [facility] Start: 2016 Screening for malign ant neoplasm of cervix [facility] Start: 2007 Screening for malign ant neoplasm of cervix Pap smear [facility] Start: 2001 HIV screening HIV screen [facility] Start: 1998 Depression Screen Depression Screen [facility] Start: 1991 COVID-19 Vaccine (1) COVID-19 Vaccin e (1) [facility] Start: 1987 Varicella vaccine (1 of 2 - 2-dose childhood series) Varicella vaccine (1 of 2 - 2-dose childhood series) [facility] Start: 1986 Hepatitis C screening Hepatitis C sc gayla [employer] End: 09-09-2021 nonstress test [employer] Phone: Comment on above: 1 Occurrences starti ng 09/09/2021 until 09/09/2021 As Needed for 8 Occu rrences starting 09/09/2021 End: 09-23-2021 nonstress test nonstress test OB Routine Diet controlled gestational diabetes mellitus (GDM) in third trimester 1 Occurrences starting 09/23/2021 until 09/23/2021 [employer] Phone: Comment on above: 1 Occurrences starti ng 09/23/2021 until 09/23/2021 End: 10-13-2021 Glucose [Mass/volume] in Serum or Plasma Glucose, Random Lab Timed Tomorrow AM for 1 Occurrences starting 10/13/2021 until 10/13/2021 [employer] Phone: Comment on above: Tomorrow AM for 1 Oc currences starting 10/13/2021 until 10/13/2021 Glucose [Mass/volume ] in Serum or Plasma [employer] Phone: Comment on above: 4X Daily (AC & HS) u ntil discontinued starting 10/12/2021 As Needed until disc ontinued starting 10/12/2021 End: 10-19-2021 Magnesium [Mass/volume] in Serum or Plasma Magnesium Lab Routine Every 6 Hours (Lab) for 7 Days starting 10/12/2021 until 10/19/2021, 3 completed [employer] Phone: Comment on above: Every 6 Hours (Lab) for 7 Days starting 10/12/2021 until 10/19/2021, 3 completed Nonrebreather mask oxygen Nonrebreather mask oxygen Respiratory Care Routine As directed - RT (PRN) until discontinued starting 10/12/2021 [employer] Phone: Comment on above: As directed - RT (AZ N) until discontinued starting 10/12/2021 Oxygen therapy [[facility] Data Set] Initiate Oxygen Therapy Protocol Respiratory Care Routine As Needed until discontinued starting 10/12/2021 [employer] Phone: Comment on above: As Needed until disc ontinued starting 10/12/2021 Spirometry panel Incentive itz metry Respiratory Care Routine Every 2hr while awake until discontinued starting 10/12/2021 [employer] Phone: Comment on above: Every 2hr while awak e until discontinued starting 10/12/2021 End: 10-12-2021 Surgical Pathology Surgical Pathology Lab Routine One Time for 1 Occurrences starting 10/12/2021 until 10/12/2021 [employer] Phone: Comment on above: One Time for 1 Occur rences starting 10/12/2021 until 10/12/2021 End: 10-12-2021 SURGICAL PATHOLOGY REPORT SURGICAL PATHOLOGY REPORT Lab Routine Once for 1 Occurrences starting 10/12/2021 until 10/12/2021 [employer] Phone: Comment on above: Once for 1 Occurrenc es starting 10/12/2021 until 10/12/2021 End: 10-13-2021 SURGICAL PATHOLOGY REPORT SURGICAL PATHOLOGY REPORT Lab Routine Once for 1 Occurrences starting 10/13/2021 until 10/13/2021 [employer] Phone: Comment on above: Once for 1 Occurrenc es starting 10/13/2021 until 10/13/2021 Immunizations Immunization Date Immunization Notes Care Provider Fa cili 10-12-2021 diphtheria, tetanus toxoids and acellular pertussis vaccine, unspecified formulation Bryanna Pool SECURITY NURSE - [facility] Work Phone: [employer] Phone: 10-12-2021 measles, mumps and rubella virus vaccine Bryanna Pool SECURITY NURSE - CNM Work Phone: [employer] Phone: Payers Date Payer Category Payer Unknown [id number] 2014 Unknown [id number] 1986 Unknown [id number] 2.16.8 [id number] 1986 Unknown [id number] 2.16.8 [id number] 1986 Unknown [id number] 2.16.8 [id number] 1986 Unknown [id number] 2.16.8 40.1.068362.3.579.2.173 1986 Unknown [id number] 2.16.8 40.1.462385.3.579.2.173 1986 Unknown [id number] 2.16.8 40.1.938787.3.579.2.173 1986 Unknown [id number] 2.16.8 40.1.561420.3.579.2.173 1986 Unknown [id number] 2.16.84 0.1.142909.3.579.2.593 1986 Unknown [id number] 2.16.84 0.1.557872.3.579.2.593 1986 Unknown [id number] 2.16.8 40.1.319851.3.579.2.1286 1986 Unknown [id number] 2.16.8 40.1.647692.3.579.2.1286 1986 Unknown [id number] 2.16.8 40.1.977625.3.579.2.1286 1986 Unknown [id number] 2.16.8 40.1.305481.3.579.2.1286 1986 Unknown [id number] 2.16.8 40.1.827524.3.579.2.1286 1986 Unknown [id number] 2.16.8 40.1.939105.3.579.2.1286 1986 Unknown [id number] 2.16.8 40.1.474449.3.579.2.1286 1986 Unknown [id number] 2.16.8 40.1.638179.3.579.2.1286 1986 Unknown [id number] 2.16.8 40.1.877220.3.579.2.1286 1986 Unknown [id number] 2.16.84 0.1.105471.3.579.2.1259 1986 Unknown [id number] 2.16.84 0.1.365273.3.579.2.1259 1959 Private Health Insurance [id number] Self-pay Self Pay [id number] Social History Date Type Detail Facility Start: 05-17-2015 End: 04-19-2021 Tobacco smoking status VTIS Never smoked tobacco [employer] Other Start: 04-19-2021 Tobacco use and exposure Smokeless tobacco non-user [employer] Phone: Start: 09-09-2021 End: 10-12-2021 Alcohol intake Ex-drinker (finding) [employer] Phone: Start: 01-31-2021 [employer] Phone: Start: 1985 Sex Assigned At Not on file M [facility] Phone: Start: 09-13-2021 End: 10-12-2021 Exposure to SARS-CoV-2 (event) Not sure [employer] Sex Assigned At Sex Assigned At [facility] [employer] Other Start: 1985 Sex Assigned At Female F [facility] Clinical Notes 06-14-2021 to 12-20-2023 Note Date & Type Note Facility 12-20-2023 Note [place] [facility] - [facility] Subjective Solange Murphy is a 38 y.o. year old female patient being seen via telemedicine for follow up TBH and abnormal echo. She has no cardiac history. Says she was very SOB with stairs yesterday, which is not normal for her. C/o fatigue. She has upcoming apt with neurology. Denies chest pain. She will be wearing 30 day event monitor soon, when she receives it in the mail. Denies lightheadedness/syncope and palpitations s/p hospital stay. Patient Active Problem List Diagnosis Abdominal pain Abnormal facial hair Acne Antepartum hypertension BMI 50.0-59.9, adult ([facility]) Encounter for sterilization Gestational hypertension, third trimester History of delivery Gestational diabetes mellitus Intrauterine Family History Problem Relation Name Age of Onset Diabetes Mother Hypertension Father Atrial fibrillation Brother Lung cancer Paternal Grandfather Social History Tobacco Use Smoking status: Never Smokeless tobacco: Never Substance Use Topics Alcohol use: Not Currently Drug use: Never HPI Solange is seen as a new patient via TeleMed. She is a 38-year-old woman with no prior significant medical history. On 12/17/2023 she was admitted to the [facility] after sustaining right arm weakness, difficulty speaking and facial droop. The symptoms resolved within 10 to 15 minutes of onset. During the symptoms, she FaceTime her mother who is a nurse and explained to her what was happening and she was taken to the emergency room at the [facility] where she was admitted and investigation included CT brain, CTA neck, brain MRI that were all nonrevealing. Telemetry showed sinus rhythm. An echocardiogram showed normal ventricular and valvular function with evidence of significant right to left shunting using agitated saline contrast injections. Lower extremity venous duplex was negative for DVT. Additional investigation and ruled out diabetes. She has no evidence of hypercholesterolemia. She was discharged on aspirin 81 mg daily and atorvastatin. She was ordered an event monitor that she still has to acquire. She was found to have iron deficiency anemia and was given IV iron and discharged on iron replacement. Since then there has been no recurrence of symptoms. She reports that about 1 to 2 weeks prior to the event, her Fitbit gave her an alert of elevated heart rate and possible atrial fibrillation. Her brother has atrial fibrillation and is on anticoagulation therapy. Review of Systems Constitutional: Positive for malaise/fatigue. Cardiovascular: Positive for dyspnea on exertion. All other systems reviewed and are negative. Objective Visit Vitals Ht 1.575 m (5' 2 ) Wt 72.6 kg (160 lb) BMI 29.26 kg/m??? Smoking Status Never BSA 1.78 m??? Physical Exam Pulmonary: Effort: Pulmonary effort is normal. Neurological: Mental Status: She is alert and oriented to person, place, and time. Psychiatric: Mood and Affect: Mood normal. Thought Content: Thought content normal. Judgment: Judgment normal. Allergies Allergies Allergen Reactions Penicillins Hives Medications Current Outpatient Medications: aspirin 81 mg EC tablet, Take 81 mg by mouth in the morning., Disp: , Rfl: atorvastatin (Lipitor) 20 mg tablet, Take 20 mg by mouth in the morning., Disp: , Rfl: buPROPion (Wellbutrin) 100 mg tablet, Take 50 mg by mouth twice a day., Disp: , Rfl: ferrous sulfate 325 (65 Fe) MG tablet, Take 65 mg by mouth with breakfast., Disp: , Rfl: Recent Labs Blood testing 12/18/2023: Hemoglobin 8.2, platelets 247, potassium 3.7, BUN 9, creatinine 0.6, EGFR more than 60, LFTs normal. Blood testing 12/17/2023: triglycerides 553, cholesterol 125, LDL 64, HDL 50. TSH 1.3. Imaging and other tests Echocardiogram 12/17/2023: CONCLUSION: 1. Normal ventricular size and systolic function. Estimated LVEF is 65%. 2. Normal diastolic function. 3. No significant valvular dysfunction. 4. Normal right-sided pressures. 5. Agitated saline contrast injections show evidence of significant rxrfo-nm-xplx shunt at the interatrial septal level at rest and with the Valsalva maneuver. This is consistent with either atrial septal defect or a large patent foramen ovale. Further characterization by a transesophageal echocardiogram is recommended. Lower extremity venous duplex 12/17/2023: No deep or superficial vein thrombus identified in the legs. CTA neck 12/17/2023: RIGHT CAROTID SYSTEM: CCA is widely patent. 0% stenosis cervical ICA. The ECA is widely patent. LEFT CAROTID SYSTEM: CCA is somewhat obscured in the thorax by aforementioned artifact. In the cervical region is unremarkable. 0% stenosis cervical ICA. The ECA is widely patent. ECG 12/17/2023: Sinus rhythm. Assessment/Plan Diagnoses and all orders for this visit: Atrial septal defect - Transesophageal echo ([facility]); Future Conge (more content not included)... [facility] 05-03-2023 Evaluation note Encounter Date Diagnosis Assessment [...] disorder, 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) [employer] Other 10-16-2023 Evaluation note* Encounter Date Diagnosis Assessment Notes Treatment Notes Treatment Clinical Notes Apr, Mild episode of recurrent major depressive disorder (ICD-10 - F33.0) [employer] Other 10-03-2023 Evaluation note* Encounter Date Diagnosis [...] Treat underlying condition and insomnia should improve [employer] Other 02-22-2023 Evaluation note* Encounter Date Diagnosis Assessment Notes Treatment Notes Treatment Clinical Notes Aug, Pharyngitis due to Streptococcus species (ICD-10 - J02.0) Gargle w/ salt water, tylenol and rest [employer] Other 04-09-2022 History of Present illness Narrative* [...] notified of mag level. Orders received. * ESTEHR Alejandre CNM - 10/12/2021 9:40 AM EDT Message received from ADELA Caceres who is front end wheel loader operator today that my patient has arrived to the unitand she has elevated blood pressures. Hypertension protocol being started and Dr Panda would like to proceed with her repeat section soon. 0955 this write leaves my office and enroute to [place], documented in this [facility] [employer] Work Phone: [phone]) 212-217503-19-2022 History of Present illness Narrative* Shanel Raymundo RN - 09/23/2021 3:40 PM EDT Pt here for scheduled NST. Pt states she is insulin controlled gestational diabetic and sees [facility] attir satellite office. Pt reports + movement today. Pt denies vaginal bleeding or leaking offluid. Pt states that she sometimes has back pain if she stands for too long, pt denies pain currently. Pt denies pain or burning when urinating. Pt denies headache or blurred vision. marker button given. documented in this [employer] Phone: [phone] Evaluation note* Encounter Date Diagnosis Assessment Notes [...] Patient care instructions given in writting by [facility] Home document. [employer] Other Evaluation note* Diagnosis Diet controlled gestational diabetes mellitus (GDM) in third trimester documented in this encounter [employer] Phone: [email or web address] note* Diagnosis Diet controlled gestational diabetes mellitus (GDM) in third trimester documented in this encounter [employer] Phone: evaluation note* Diagnosis Diet controlled gestational diabetes mellitus (GDM) in third trimester documented in this encounter [employer] Phone: [email or web address] note* Diagnosis Diet controlled gestational diabetes mellitus (GDM) in third trimester documented in this encounter [employer] Phone: [email or web address] note* Diagnosis Abdominal pain- Primary Abdominal pain, unspecified site Born by section Hypertension affecting in first trimester Hypertension affecting in third trimester documented in this encounter [employer] Phone: evaluation noteNo InformationNort [employer]ub Other Evaluation note* Diagnosis Onset Date Resolution Status Anemia acute PFO (patent foramen ovale) a cute TIA (transient ischemic attack) acute Type 2 diabetes mellitus with hyperglycemia acute [facility] Work Phone: Hisbina general Narrative - Reported* Type Description Date Medical History anxiety Surgical History back surgery Surgical History tonsillectomy Surgical History C section Surgical History PE tubes Surgical History adnoidectomy Hospitalization History child [employer] Other Hisyjmm general Narrative - Reported* Type Description Date [...] History child Hospitalization History SEE SURGICAL HX [employer] Other Hiszxqd general Narrative - Reported* Type Description Date [...] History child Hospitalization History SEE SURGICAL HX [employer] Other Hospital Discharge instructions* Attachments The following attachments cannot be sent through Care Everywhere. * Section: Post-op (Czech) * (Czech) * Video: Caring for Yourself After Delivery (Czech) * : Exercises (Czech) * Depression: (Czech) * Parenting: Stress and Infants (Czech) documented in this [facility] [employer] Work Phone: Summary Purpose Family History No Family History Records Found Relationship Condition Age at Onset Recorded Date/T eladio Not Specified Diabetes mellitus Unknown Advance Directives No Advanced Directives Records FoundLatest Code Status on File Code Status Date Activated Date Inactivated Comments Full Code 10/12/2021 9:23 AM 10/12/2021 1:23 PM Advance Directive Response Recorded Date/ Time Advance Directives No April 19, 2021 10:55am Chief Complaint and Reason for Visit Chief Complaint hospital follow up Reason for Visit Anemia PFO (patent foramen ovale) TIA (transient ischemic attack) Type 2 diabetes mellitus with hyperglycemia Additional Source Comments INFORMATION SOURCE (unrecogn ized section and content) DATE CREATED AUTHOR 12/31/2017 [facility] DATE CREATED AUTHOR AUTHOR'S ORGANIZ ATION 05/15/2021 [facility] DATE CREATED AUTHOR AUTHOR'S ORGANIZ ATION 06/21/2021 [facility] DATE CREATED AUTHOR AUTHOR'S ORGANIZ ATION 09/27/2021 [facility] dical Specialist DATE CREATED AUTHOR AUTHOR'S ORGANIZ ATION 10/16/2021 [facility] DATE CREATED AUTHOR AUTHOR'S ORGANIZ ATION 08/28/2022 [facility] DATE CREATED AUTHOR AUTHOR'S ORGANIZ ATION 12/21/[address] [facility] DATE CREATED AUTHOR AUTHOR'S ORGANIZ ATION 12/29/2023 [facility] DATE CREATED AUTHOR AUTHOR'S ORGANIZ ATION 01/13/2024 [facility] DATE CREATED AUTHOR AUTHOR'S ORGANIZ ATION 01/30/2024 [facility] dical Specialists EPIC Reason for Visit (unrecogniz ed section and content) Reason Comments Non-stress Test Reason Comments Abdominal Pain Specialty Diagnoses / Procedures Referred By Contac t Referred To Contact Diagnoses Abdominal pain Hypertension affecting in first trimester Hypertension affecting in third trimester Bryanna Barth APRN - [place] [address] [place] [address] [facility] [address] [place] [address] Referral ID Status Reason Start Date Expiration Date Visits Re quested Visits Authorized 1 1 Care Teams (unrecognized sec tion and content) Business Services Administrator Relationship Specialty Start Date End Date Edward Page, DO [address] [facility] [place] [phone] PCP - General Internal Medicine 06/21/21 Business Services Administrator Relationship Specialty Start Date End Date Edward Page, DO [address] [place] [phone] PCP - General Internal Medicine 06/21/21 Business Services Administrator Relationship Specialty Start Date End Date Edward Page, DO [address] [place] [facility] [place] [address] PCP - General Internal Medicine 06/21/21 Business Services Administrator Relationship Specialty Start Date End Date Edward Page, DO [address] [place] [facility] [place] [address] PCP - General Internal Medicine 06/21/21 Business Services Administrator Relationship Specialty Start Date End Date Edward Page, DO [address] [facility] [place] [phone] PCP - General Internal Medicine 06/21/21 Business Services Administrator Relationship Specialty Start Date End Date Edward Page, DO [address] [facility] [place] [phone] PCP - General Internal Medicine 06/21/21 Team Status: Active Member Role Status Dates Edward Page DO Primary Care Provider Active Team Status: Active Member Role Status Dates Edward Page DO Primary Care Provider Active Start: December 17, 2023 Nathanael Flood DO Attending Provider Active Start : December 17, 2023 Team Status: Active Member Role Status Dates Edward Page DO Primary Care Provide r, Attending Provider Active Start: December 18, 2023 Team Status: Inactive Member Role Status Dates Edward Page DO Primary Care Provide r, Attending Provider Active Start: December 23, 2023 End: December 23, 2023 Ordered Prescriptions (unrec ognized section and content) [...] (Stopped - Provider: Ruben Mccabe APRN - SENIOR MOBILE APPLICATION DEVELOPER) docusate sodium (COLACE) capsule 100 mg 100 mg, Oral, 2 TIMES DAILY, First dose on Denisha 10/12/21 at 1345, Until Discontinued, Do not crush or break., 1410 (Given - Provider: Milla Davis RN)2151 (Given - Provider: Lilo Kulkarni, SHANON) 0807 (Given - Provider: Nohemy Nuñez RN)2047 (Given - Provider: Elif Prince RN) 0930 (Given - Provider: Leda Glez RN)2100 (Due) enoxaparin (LOVENOX) injection 60 mg 60 [...] Bag - Provider: Ruben Mccabe APRN - SENIOR MOBILE APPLICATION DEVELOPER - Comment: given over 60 minutes.) ibuprofen [...] Lilo Kulkarni RN - Comment: POCT 229) 2046 (Given - Provider: Elif Prince RN) 2100 [...] Comment: BS 136)1800 (Given - Provider: Leda Glez, SHANON) 0753 (Not Given - Provider: Leda Glez [...] Lilo Kulkarni RN)0625 (Given - Provider: Lilo Kulkarni, SHANON)1126 (Given - Provider: Nohemy Nuñez, SHANON) labetalol (NORMODYNE) tablet 200 mg 200 mg, Oral, EVERY 8 HOURS SCHEDULED (3 times per day), 9 doses, First dose on Sat10/12/21 at 1400, Last dose on Sat10/15/21 at 0600 1409 (Given - Provider: Milla Davis RN)2151 (Given - Provider: Lilo Kulkarni, SHANON) 0625 (Given - Provider: Lilo Kulkarni RN)1445 [...] 10/14/21 at 1400, Antimicrobial Indications: Surgical Prophylaxis 2150 (Given - Provider: Lilo Kulkarni RN) 0625 (Given - Provider: Lilo Kulkarni RN)1445 (Given - Provider: Leda Glez, SHANON)2239 (Given - Provider: Elif Prince RN - Comment: Pt request) 0600 (Due)1400 (Due) vitamin 27-1 MG tablet 1 tablet 1 tablet, Oral, DAILY, First dose on Denisha 10/12/21 at 1345, Until Discontinued, Begin when normal bowel activity resumes., 1701 (Not Given - Provider: Milla Davis RN - Reason: Other) 0807 (Given - Provider: Nohemy Nuñez, RN) 0930 (Given - Provider: Leda Glez, SHANON) sodium chloride flush 0.9 % injection 10 [...] Reason: Other - Comment: IV removed)2100 (Due) rmexmyc-wpawpp-uhwon pertussis (BOOSTRIX) injection 0.5 mL 0.5 mL, [...] (NoRateChange - Provider: Ruben Mccabe APRN - [employer]IOR [employer]ELOPER) lactated ringers infusion IntraVENous, at 50 mL/hr, CONTINUOUS, Starting on Denisha 10/12/21 at 1345, 1256 (Rate/Dose Change - Provider: Milla Davis RN)2150 (Rate/Dose Change - Provider: Lilo Kulkarni RN)2245 (Rate/Dose Change - Provider: Lilo Kulkarni RN) 0522 (Rate/Dose Change - Provider: Lilo Kulkarni RN) 1127 (Stopped - Provider: Leda Glez RN) magnesium sulfate (17014 mg/500mL infusion) (CANCELED) 2,000 mg/hr (50 mL/hr), IntraVENous, CONTINUOUS, Starting on Denisha 10/12/21 at 1015, Until Sat10/12/21 at 1323, Pre-Infusion: Assess baseline vital signs, [...] (NoRateChange - Provider: Ruben Mccabe APRN - SENIOR [employer]BI[employer] APPLICATION DEVELOPER) magnesium sulfate (50355 mg/500mL infusion) () 1,000 mg/hr (25 mL/hr), [...] Davis RN) 1041 (Given - Provider: Nohemy Nuñez RN)7 (Given - Provider: Elif Prince RN) oxyCODONE-acetaminophen (PERCOCET) 5-325 MG per tablet [...] 1041 (See Alternative - Provider: Nohemy Nuñez, SHANON)2047 (See Alternative - Provider: Elif Prince RN) oxytocin (PITOCIN) 10 unit bolus from [...] Milla Davis, SHANON)2136 (Stopped - Provider: Lilo Kulkarni RN) 1128 [...] units in 167ml).
Multiphase Phase of Care Goals (unrecognized section and content) Goals may be documented in a n alternate section FOR RECORDS PERTAINING TO PATIENTS WHO ARE [...] BE BASED ON THE PRIMARY CLINICAL RECORDS. [facility] [employer]. provides no warranty or guarantee of the accuracy or completeness of information in this document.
== END 2024-02-15 09:49 | disposition home or self-care (01) ==
LOC: LAB 02-18 09:48
PROVIDERS: PCP Internal Medicine
DX: Q21.12 Patent foramen ovale (principal)
CPT/HCPCS: 36415; 86146

== ENCOUNTER 2024-03-07 06:42 | Outpatient (OUT) | payer BC, SELFPAY ==
--- OUTSIDE RECORDS SUMMARY | 2024-03-07 06:50 | XMS_ITS | CCD ---
Author Organization [facility] Care Team Providers Care Transport Pilot Name Role Phone Bentley Amin Unavailable Unavailable Bentley Amin Unavailable Unavailable Edward Page Unavailable Unavailable Edward Page DO Primary Care Provider [phone] FLORO DIANNE Admitting Unavailable FLORO, DIANNE Attending Unavailable EDWARD PAGE E Primary Care Unavailable FLORO, DIANNE Admitting Unavailable FLORO, DIANNE Attending Unavailable RICHAR, EDWARD E Primary Care Unavailable FLORO, DIANNE Admitting Unavailable FLORO, DIANNE Attending Unavailable EDWARD PAGE Primary Care Unavailable BRYANNA BARTH Admitting Unavailable BALL, EDWARD E Primary Care Unavailable FLORO, DIANNE Attending Unavailable SILVER DECKER Consulting Unavailable FLORO, DIANNE Admitting Unavailable FLORO, DIANNE Attending Unavailable EDWARD PAGE Primary Care Unavailable FLORO, DIANNE Admitting Unavailable FLORO, DIANNE Attending Unavailable RICHAR, EDWARD E Primary Care Unavailable FLORO, DIANNE Admitting Unavailable FLORO, DIANNE Attending Unavailable EDWARD PAGE E Primary Care Unavailable Margie Fish Unavailable BERTO ZIMMERMAN Admitting Unavailable BERTO ZIMMERMAN Attending Unavailable RICHAR, DR BALLARD Primary Care Unavailable BERTO ZIMMERMAN Consulting Unavailable RICHAR, DR BALLARD Admitting Unavailable BALL, DR BALLARD Attending Unavailable BALL, DR BALLARD Primary Care Unavailable BALL, DR BALLARD Consulting Unavailable Richar Edward Unavailable RAFAEL STATON Attending Unavailable FLORO DIANNE L Attending Unavailable FLORO, DIANNE L Attending Unavailable MICK WREN Referring Unavailable RICHAR, EDWARD E Primary Care Unavailable CATA GIANG Attending Unavailable MICK WREN Referring Unavailable EDWARD PAGE Primary Care Unavailable CATA GIANG Admitting Unavailable Dante LUNDBERG Attending Unavailable EDWARD PAGE E Referring Unavailable RICHAR, EDWARD E Primary Care Unavailable RICHAR, EDWARD E Primary Care Unavailable BALL, EDWARD [...] Unavailable BALL, EDWARD E Primary Care Unavailable LUANN, BRYCE Attending Unavailable BALL, EDWARD E Referring Unavailable BALL, EDWARD E Primary Care Unavailable Allergies Allergy Classification Reported Allergen(s) Allergy Type Date of Onset Reaction(s) Facility (9 sources) Penicillins; Translations: [PENICILLINS] Propensity to adverse reactions to drug 03-13-20 17 [facility] (10 sources) Penicillin G; Translations: [PENICILLIN G] Drug Allergy 03-13-20 17 [facility] (3 sources) Penicillin Drug Allergy 03-16-20 14 Unknown [facility] Other (4 sources) Substance with penicillin structure and antibacterial mechanism of action (substance) Drug allergy 01-14-20 18 Unknown [facility] Other (3 sources) patient allergy list reviewed by nurse or physicia Propensity to adverse reactions 02-27-20 17 Comment:Done [facility] Other (3 sources) Allergies Reconciled Propensity to adverse reactions Unknown [facility] Other Medications Current Medications Medication Drug Class(es) [...] mg docusate sodium 50 mg / sennosides, pen[facility] 8.6 mg oral tablet (1 source) Start: [...] Start: 10-12-2021 lansinoh lanol in ointment levonorgestrel 0.263586 mg/hr intrauterine system (8 sources) Progestin, Progestin-containing [...] premix Start: 10-12-2021 End: 10-13-2021 magnesium sulfate (80896 mg/ 500mL infusion) 2 ml metoclopramide 5 [...] Range Facility Office Visiton 12-20-2023 Follow-up visit [id number] Shamir Murphy 1985 F Date Provider Department Center 12/20/2023 RAFAEL WHITE MADDY Davis Family History Problem Relation Age of Onset Diabetes Mother Hypertension Father Atrial fibrillation Brother Lung cancer Paternal Grandfather Family Status - Relation Status Age at Mother Father Brother Maternal Grandmother Alive Paternal Grandfather Level of Service:59557 SD PHYS/QHP TELEPHONE EVALUATION 21-30 MIN Normal [facility] Basophils Auto (Bld) [#/Vol] on 12-18-2023 Basophils (Bld) [#/Vol] 0.0 10 3/uL 0.0-0.1 [facility] Basophils/100 WBC Auto (Bld) on 12-18-2023 Basophils/100 WBC (Bld) 0.7 % 0.2-2.0 [facility] Eosinophils/100 WBC Auto (Bl d)on 12-18-2023 Eosinophils/100 WBC (Bld) 1.5 % 0.9-7.0 [facility] Erythrocyte distribution wid th Auto (RBC) [Ratio]on 12-18-2023 Erythrocyte distribution width (RBC) [Ratio] 18.0 % 11.0-15.0 [facility] Estimated glomerular filtrat ion rate (GFR) non- Americanon 12-18-2023 GFR/1.73 sq M.predicted among non-blacks MDRD (S/P/Bld) [Vol rate/Area] mL/min/{1.73_m2} >=60 [facility] Globulin Calc (S) [Mass/Vol] on 12-18-2023 Globulin (S) [Mass/Vol] 3.1 g/dL [facility] Hematocrit Auto (Bld) [Volum e fraction]on 12-18-2023 Hematocrit (Bld) [Volume fraction] 27.9 % 36.0-48.0 [facility] Hemoglobin [Mass/volume] in Bloodon 12-18-2023 Hemoglobin (Bld) [Mass/Vol] 8.2 g/dL 12.0-16.0 [facility] Laboratory - Chemistry and C hemistry - challengeon 12-18-2023 Albumin [Mass/Vol] 2.8 g/dL 3.4-5.0 [facility] ALP [Catalytic activity/Vol] 67 U/L 46-116 [facility] ALT [Catalytic activity/Vol] 14 U/L 14-59 [facility] AST [Catalytic activity/Vol] 8 U/L 15-37 [facility] Bilirubin [Mass/Vol] 0.4 mg/dL 0.2-1.0 [facility] Calcium [Mass/Vol] 7.8 mg/dL 8.5-10.1 [facility] Chloride [Moles/Vol] 108 mmol/L 98-107 [facility] CO2 [Moles/Vol] 25.7 mmol/L 21.0-32.0 [facility] Creatinine [Mass/Vol] 0.60 mg/dL 0.55-1.02 [facility] GFR/1.73 sq M.predicted MDRD (S/P/Bld) [Vol rate/Area] mL/min/{1.73_m2} >=60 [facility] Glucose [Mass/Vol] 75 mg/dL 74-106 [facility] Potassium [Moles/Vol] 3.7 mmol/L 3.5-5.1 [facility] Protein [Mass/Vol] 5.9 g/dL 6.4-8.2 [facility] Sodium [Moles/Vol] 139 mmol/L 136-145 [facility] Urea nitrogen [Mass/Vol] 9.0 mg/dL 7.0-18.0 [facility] Urea nitrogen/Creatinine [Mass ratio] 15.0 mg/mg [facility] Laboratory - Hematology and Cell countson 12-18-2023 Immature granulocytes/100 WBC (Bld) 0.2 % 0.0-0.5 [facility] Leukocytes [#/volume] correc alfredito for nucleated erythrocytes in Blood by Automated counon 12-18-2023 WBC corrected for nucl RBC Auto (Bld) [#/Vol] 5.9 10 3/uL 4.0-11.0 [facility] Lymphocytes Auto (Bld) [#/Vo l]on 12-18-2023 Lymphocytes (Bld) [#/Vol] 2.4 10 3/uL 1.2-3.8 [facility] Lymphocytes/100 WBC Auto (Bl d)on 12-18-2023 Lymphocytes/100 WBC (Bld) 41.3 % 20.5-60.0 [facility] MCH Auto (RBC) [Entitic mass ]on 12-18-2023 MCH (RBC) [Entitic mass] 21.0 pg 26.7-34.0 [facility] MCHC Auto (RBC) [Mass/Vol]on 12-18-2023 MCHC (RBC) [Mass/Vol] 29.4 g/dL 29.9-35.2 [facility] MCV Auto (RBC) [Entitic vol] on 12-18-2023 MCV (RBC) [Entitic vol] 71.5 fL 81.0-99.0 [facility] Monocytes Auto (Bld) [#/Vol] on 12-18-2023 Monocytes (Bld) [#/Vol] 0.4 10 3/uL 0.3-0.8 [facility] Monocytes/100 WBC Auto (Bld) on 12-18-2023 Monocytes/100 WBC (Bld) 6.6 % 1.7-12.0 [facility] Neutrophils Auto (Bld) [#/Vo l]on 12-18-2023 Neutrophils (Bld) [#/Vol] 2.9 10 3/uL 1.4-6.5 [facility] Neutrophils/100 WBC Auto (Bl d)on 12-18-2023 Neutrophils/100 WBC (Bld) 49.7 % 43.0-75.0 [facility] No Panel Informationon 12-17 Eosinophils # (Auto) 0.1 10 3/uL 0.0-0.7 [facility] Immature Granulocyte # (Auto) 0.01 10 3/uL 0.00-0.03 [facility] Platelet mean volume Auto (B ld) [Entitic vol]on 12-18-2023 Platelet mean volume (Bld) [Entitic vol] 10.4 fL 9.5-13.5 [facility] Platelets Auto (Bld) [#/Vol] on 12-18-2023 Platelets (Bld) [#/Vol] 247 10 3/uL 150-450 [facility] RBC Auto (Bld) [#/Vol]on RBC (Bld) [#/Vol] 3.90 10 6/uL 4.20-5.40 [facility] Serum or plasma albumin/glob ulin mass ratioon 12-18-2023 Albumin/Globulin [Mass ratio] 0.9 {ratio} [facility] Serum or plasma anion gap de terminationon 12-18-2023 Anion gap [Moles/Vol] 9.0 mmol/L [facility] Activated partial thrombopla stin time (aPTT) in platelet poor plasma by coagulation aon 12-17-2023 aPTT Coag (PPP) [Time] 26.5 s 22.3-36.2 [facility] Basophils Auto (Bld) [#/Vol] on 12-17-2023 Basophils (Bld) [#/Vol] 0.0 10 3/uL 0.0-0.1 [facility] Basophils/100 WBC Auto (Bld) on 12-17-2023 Basophils/100 WBC (Bld) 0.7 % 0.2-2.0 [facility] Cholesterol in LDL Calc [Mas s/Vol]on 12-17-2023 Cholesterol in LDL [Mass/Vol] 64.4 mg/dL [facility] Comment on above: <100 mg/dl [id number] 0-129 mg/dl NEAR OR ABOVE [id number] mg/dl BORDERLINE [id number] mg/dl HIGH>190 mg/dl VERY HIGH Cholesterol in VLDL Calc [Ma ss/Vol]on 12-17-2023 Cholesterol in VLDL [Mass/Vol] 10.6 mg/dL [facility] Eosinophils/100 WBC Auto (Bl d)on 12-17-2023 Eosinophils/100 WBC (Bld) 1.5 % 0.9-7.0 [facility] Erythrocyte distribution wid th Auto (RBC) [Ratio]on 12-17-2023 Erythrocyte distribution width (RBC) [Ratio] 17.8 % 11.0-15.0 [facility] Estimated glomerular filtrat ion rate (GFR) non- Americanon 12-17-2023 GFR/1.73 sq M.predicted among non-blacks MDRD (S/P/Bld) [Vol rate/Area] mL/min/{1.73_m2} >=60 [facility] Globulin Calc (S) [Mass/Vol] on 12-17-2023 Globulin (S) [Mass/Vol] 3.6 g/dL [facility] Glucose mean value [Mass/vol ume] in Blood Estimated from glycated hemoglobinon 12-17-2023 Average glucose Estimated from glycated hemoglobin (Bld) [Mass/Vol] 114 mg/dL [facility] Hematocrit Auto (Bld) [Volum e fraction]on 12-17-2023 Hematocrit (Bld) [Volume fraction] 31.4 % 36.0-48.0 [facility] Hemoglobin [Mass/volume] in Bloodon 12-17-2023 Hemoglobin (Bld) [Mass/Vol] 9.2 g/dL 12.0-16.0 [facility] INR in Platelet poor plasma by Coagulation assayon 12-17-2023 INR Coag (PPP) [Relative time] 1.07 {INR} [facility] Comment on above: DESIRED INR:2.0-3.0 CONDITIONS NOT LISTED BELOW2.5-3.5 FOR PROSTHETIC HEART VALVE REPLACEMENT2.5-3.5 RECURRENT THROMBOSIS Iron binding capacity [Mass/ volume] in Serum or Plasmaon 12-17-2023 Iron binding capacity [Mass/Vol] 443.0 ug/dL 250.0-450. 0 [facility] Iron saturation [Mass Fracti on] in Serum or Plasmaon 12-17-2023 Iron saturation [Mass fraction] 3.6 % [facility] Laboratory - Chemistry and C hemistry - challengeon 12-17-2023 Albumin [Mass/Vol] 3.3 g/dL 3.4-5.0 [facility] ALP [Catalytic activity/Vol] 79 U/L 46-116 [facility] ALT [Catalytic activity/Vol] 17 U/L 14-59 [facility] AST [Catalytic activity/Vol] 16 U/L 15-37 [facility] Bilirubin [Mass/Vol] 0.6 mg/dL 0.2-1.0 [facility] Calcium [Mass/Vol] 8.1 mg/dL 8.5-10.1 [facility] Chloride [Moles/Vol] 105 mmol/L 98-107 [facility] Cholesterol [Mass/Vol] 125 mg/dL <=200 [facility] Cholesterol in HDL [Mass/Vol] 50 mg/dL 40-60 [facility] Comment on above: > or =60 mg/dl - LOW CARDIOVASCULAR RISK<40 mg/dl - HIGH CARDIOVASCULAR RISK CO2 [Moles/Vol] 27.0 mmol/L 21.0-32.0 [facility] Cobalamin (Vitamin B12) [Mass/Vol] 209.0 pg/mL 193.0-986. 0 [facility] Creatinine [Mass/Vol] 0.70 mg/dL 0.55-1.02 [facility] Ferritin [Mass/Vol] 6.0 ng/mL 8.0-252.0 [facility] GFR/1.73 sq M.predicted MDRD (S/P/Bld) [Vol rate/Area] mL/min/{1.73_m2} >=60 [facility] Glucose [Mass/Vol] 94 mg/dL 74-106 [facility] Iron [Mass/Vol] 16.0 ug/dL 50.0-170.0 [facility] Magnesium [Mass/Vol] 2.4 mg/dL 1.8-2.4 [facility] Potassium [Moles/Vol] 3.5 mmol/L 3.5-5.1 [facility] Protein [Mass/Vol] 6.9 g/dL 6.4-8.2 [facility] Sodium [Moles/Vol] 141 mmol/L 136-145 [facility] Triglyceride [Mass/Vol] 53 mg/dL <=150 [facility] TSH Qn 1.336 m[IU]/L 0.358-3.74 0 [facility] Urea nitrogen [Mass/Vol] 10.0 mg/dL 7.0-18.0 [facility] Urea nitrogen/Creatinine [Mass ratio] 14.3 mg/mg [facility] Laboratory - Hematology and Cell countson 12-17-2023 HbA1c (Bld) [Mass fraction] 5.6 % 4.5-6.2 [facility] Comment on above: ADA RECOMMENDED LIMI T 4.0 - 6.0ADA THERAPEUTIC TARGET < 7.0ACTION SUGGESTED> 7.0 Immature granulocytes/100 WBC (Bld) 0.2 % 0.0-0.5 [facility] Leukocytes [#/volume] correc alfredito for nucleated erythrocytes in Blood by Automated counon 12-17-2023 WBC corrected for nucl RBC Auto (Bld) [#/Vol] 5.5 10 3/uL 4.0-11.0 [facility] Lymphocytes Auto (Bld) [#/Vo l]on 12-17-2023 Lymphocytes (Bld) [#/Vol] 2.5 10 3/uL 1.2-3.8 [facility] Lymphocytes/100 WBC Auto (Bl d)on 12-17-2023 Lymphocytes/100 WBC (Bld) 46.2 % 20.5-60.0 [facility] MCH Auto (RBC) [Entitic mass ]on 12-17-2023 MCH (RBC) [Entitic mass] 20.9 pg 26.7-34.0 [facility] MCHC Auto (RBC) [Mass/Vol]on 12-17-2023 MCHC (RBC) [Mass/Vol] 29.3 g/dL 29.9-35.2 [facility] MCV Auto (RBC) [Entitic vol] on 12-17-2023 MCV (RBC) [Entitic vol] 71.4 fL 81.0-99.0 [facility] Monocytes Auto (Bld) [#/Vol] on 12-17-2023 Monocytes (Bld) [#/Vol] 0.4 10 3/uL 0.3-0.8 [facility] Monocytes/100 WBC Auto (Bld) on 12-17-2023 Monocytes/100 WBC (Bld) 6.6 % 1.7-12.0 [facility] Neutrophils Auto (Bld) [#/Vo l]on 12-17-2023 Neutrophils (Bld) [#/Vol] 2.4 10 3/uL 1.4-6.5 [facility] Neutrophils/100 WBC Auto (Bl d)on 12-17-2023 Neutrophils/100 WBC (Bld) 44.8 % 43.0-75.0 [facility] No Panel Informationon 12-16 Eosinophils # (Auto) 0.1 10 3/uL 0.0-0.7 [facility] Folate 12.40 ng/mL 8.60-58.90 [facility] Immature Granulocyte # (Auto) 0.01 10 3/uL 0.00-0.03 [facility] Troponin I High Sensitivity 6.3 pg/mL 4.0-51.3 [facility] Comment on above: CUT-OFF POINTS HAVE BEEN [...] volume (Bld) [Entitic vol] 10.1 fL 9.5-13.5 [facility] Platelets Auto (Bld) [#/Vol] on 12-17-2023 Platelets (Bld) [#/Vol] 283 10 3/uL 150-450 [facility] Prothrombin time (PT)on 12-06 PT Coag (PPP) [Time] 11.3 s 9.0-11.6 [facility] RBC Auto (Bld) [#/Vol]on RBC (Bld) [#/Vol] 4.40 10 6/uL 4.20-5.40 [facility] Reticulocytes/100 RBC Auto ( Bld)on 12-17-2023 Reticulocytes/100 RBC (Bld) 0.95 % 0.60-3.10 [facility] Serum or plasma albumin/glob ulin mass ratioon 12-17-2023 Albumin/Globulin [Mass ratio] 0.9 {ratio} [facility] Serum or plasma anion gap de terminationon 12-17-2023 Anion gap [Moles/Vol] 12.5 mmol/L [facility] Serum or plasma total choles terol/high density lipoprotein (HDL) cholesterol mass vasiliy 12-17-2023 Cholesterol.total/C holesterol in HDL [Mass ratio] 2.5 {ratio} [facility] Comment on above: 3.3 - 4.4 LOW RISK4. 4 - 7.1 AVERAGE RISK7.1 - 11.0 MODERATE RISK>11.0 HIGH RISK NICOTINE METABOLITESon 08-27 Cotinine <1.0 Normal [facility] Comment on above: Result Comment: This test was developed and its performance characteristics determined by [employer]. It has not been cleared or approved by the Food and Drug Administration. Cotinine levels greater than 20.0 are consistent with the use of tobacco or tobacco cessation products. Performed By: #### N ICTBLD #### [facility] [address] [place] [address] Dr. Malcolm Gil Nicotine <1.0 Normal [facility] Comment on above: Result Comment: This test was developed and its performance characteristics determined by [employer]. It has not been cleared or approved by the Food and Drug Administration. Nicotine levels greater than 2.0 are consistent with the use of tobacco or tobacco cessation products. Performed By: #### N ICTBLD #### [facility] [address] [address] [address] Malcolm iGl GLYCOHEMOGLOBIN A1Con 2022 ADA RECOMMENDATION SEE BELOW Normal [facility] Comment on above: Result Comment: ADA RECOMMENDED LIMIT 4.0 - 6.0 ADA THERAPEUTIC TARGET < 7.0 ACTION SUGGESTED > 7.0 Performed By: #### A 1C #### [facility] [address] [address] [address] Malcolm Gil Glucose [Mass/Vol] 163 mg/dL Normal The [facility] Comment on above: Performed By: #### A 1C #### [facility] [address] [address] [address] Malcolm Gil HbA1c (Bld) [Mass fraction] 7.3 % Critically high 4.5-6.2 [facility] Comment on above: Performed By: #### A 1C #### [facility] [address] [address] [address] Malcolm Gil Glucose, Whole Bloodon 10-14 Glucose [Mass/Vol] 85 mg/dL 74 - 100 mg/dL [facility] Glucose, Whole Bloodon 10-13 Glucose [Mass/Vol] 161 mg/dL High 74 - 100 mg/dL [facility] Interpretation and review of laboratory results Abnormal [facility] Glucose [Mass/Vol] 168 mg/dL High 74 - 100 mg/dL [facility] Interpretation and review of laboratory results Abnormal [facility] Glucose [Mass/Vol] 136 mg/dL High 74 - 100 mg/dL [facility] Interpretation and review of laboratory results Abnormal [facility] Glucose [Mass/Vol] 137 mg/dL High 74 - 100 mg/dL [facility] Interpretation and review of laboratory results Abnormal [facility] Hemoglobinon 10-13-2021 Hemoglobin (Bld) [Mass/Vol] 10.1 g/dL Low 11.9-15.1 [facility] Comment on above: Performed By: #### U RTPRT #### [facility] [address] [place], [place] [id number] County Assessor: Morro Hale MD Hemoglobin.gastroin testinal spec 1 Ql (Stl) 10.1 g/dL Low 11.9 - 15.1 g/dL [facility] Interpretation and review of laboratory results Abnormal [facility] Hemoglobin A1Con 10-13-2021 Glucose [Mass/Vol] 143 mg/dL Normal [facility] Comment on above: Result Comment: The ADA and AACC recommend providing the estimated average glucose result to permit better patient understanding of their HBA1c result. Performed By: #### U RTPRT #### [facility] [address] [place] [address] County Assessor: Morro Hale MD HbA1c (Bld) [Mass fraction] 6.6 % High 4.0-6.0 [facility] Comment on above: Performed By: #### U RTPRT #### [facility] [address] [place] [address] County Assessor: Morro Hale MD Hemoglobin A1con 10-13-2021 Glucose [Mass/Vol] 143 mg/dL [facility] Comment on above: The ADA and AACC rec ommend providing the estimated average glucose result to permit better patient understanding of their HBA1c result. HbA1c (Bld) [Mass fraction] 6.6 % High 4.0 - 6.0 % [facility] Interpretation and review of laboratory results Abnormal [facility] Magnesiumon 10-13-2021 Magnesium [Mass/Vol] 4.7 mg/dL Critically high 1.6-2.6 [facility] Comment on above: Performed By: #### U RTPRT #### [facility] [address] [place] [address] County Assessor: Morro Hale MD Interpretation and review of laboratory results Abnormal [facility] Magnesium [Mass/Vol] 4.7 mg/dL Critically high 1.6 - 2.6 mg/dL [facility] Magnesium [Mass/Vol] 5.3 mg/dL Critically high 1.6-2.6 [facility] Comment on above: Performed By: #### M G #### [facility] [address] [place] [address] [place] [address] County Assessor: Morro Hale MD Interpretation and review of laboratory results Abnormal [facility] Magnesium [Mass/Vol] 5.3 mg/dL Critically high 1.6 - 2.6 mg/dL [facility] Magnesium [Mass/Vol] 4.1 mg/dL Critically high 1.6-2.6 [facility] Comment on above: Performed By: #### M G #### [facility] [address] [place] [address] [address] [place] [id number] County Assessor: Morro Hale MD APTTon 10-12-2021 aPTT Coag (Bld) [Time] 23.9 s Low 26.8-34.8 [facility] Comment on above: Result Comment: IV Heparin Therapy Range: 62.0-94.0 Performed By: #### U RTPRT #### [facility] [address] [place] [address] Dr[address] [place] [id number] County Assessor: Morro Hale MD aPTT Coag (Bld) [Time] 23.9 s Low [facility] Comment on above: IV Heparin Therapy Range: 62.0-94.0 Interpretation and review of laboratory results Abnormal [facility] CBC with Auto Differentialon 10-12-2021 Absolute Eos # 0.11 [facility] th Absolute Immature Granulocyte 0.07 [facility] Absolute Lymph # 2.20 [facility] Absolute Comal # 0.53 [facility] Basophils (Bld) [#/Vol] 0.04 10*3/uL [facility] [...] % [facility] Segs Absolute 6.68 [facility] WBC (Bld) [#/Vol] 9.6 10*3/uL [facility] CBC with Diffon 10-12-2021 Abs. Basophil 0.04 k/uL Normal 0.00-0.20 [facility] Comment on above: Performed By: #### U RTPRT #### [facility] [address] [place], [place] [id number] County Assessor: Morro Hale MD Abs.Imm.Granulocyte 0.07 k/uL Normal 0.00-0.30 [facility] Comment on above: Performed By: #### U RTPRT #### [facility] [address] [place], [place] [id number] County Assessor: Morro Hale MD Abs.Neutrophil (Seg) 6.68 k/uL Normal 1.50-8.10 [facility] Comment on above: Performed By: #### U RTPRT #### [facility] [address] [place], [place] [id number] County Assessor: Morro Hale MD Basophils/100 WBC (Bld) 0 % Normal 0-2 [facility] Comment on above: Performed By: #### U RTPRT #### [facility] [address] [place] [address] Dr[address] [place], [place] [id number] County Assessor: Morro aHle MD Eosinophils (Bld) [#/Vol] 0.11 10*3/uL Normal 0.00-0.44 [facility] Comment on above: Performed By: #### U RTPRT #### [facility] [address] [place] [address] Dr[address] [place], [place] [id number] County Assessor: Morro Hale MD Eosinophils/100 WBC (Bld) 1 % Normal 1-4 [facility] Comment on above: Performed By: #### U RTPRT #### [address] [place], [id number] County Assessor: Morro Hale MD Erythrocyte distribution width (RBC) [Ratio] 14.6 % High 11.8-14.4 [facility] Comment on above: Performed By: #### U RTPRT #### [address] [place] [id number] County Assessor: Morro Hale MD Hematocrit (Bld) [Volume fraction] 34.6 % Low 36.3-47.1 [facility] Comment on above: Performed By: #### U RTPRT #### [address] [place], [place] 4393283 County Assessor: Morro Hale MD Hemoglobin (Bld) [Mass/Vol] 11.2 g/dL Low 11.9-15.1 [facility] Comment on above: Performed By: #### U RTPRT #### [address] [place], [place] [id number] County Assessor: Morro Hale MD Immature granulocytes/100 WBC (Bld) 1 % High 0 [facility] Comment on above: Performed By: #### U RTPRT #### [facility] [address] [place], [facility] County Assessor: Morro Hale MD Lymphocytes (Bld) [#/Vol] 2.20 10*3/uL Normal 1.10-3.70 [facility] Comment on above: Performed By: #### U RTPRT #### [facility] [address] [place], [facility] County Assessor: Morro Hale MD Lymphocytes/100 WBC (Bld) 23 % Low 24-43 [facility] Comment on above: Performed By: #### U RTPRT #### [facility] [address] [place], [facility] County Assessor: Morro Hale MD MCH (RBC) [Entitic mass] 27.1 pg Normal 25.2-33.5 [facility] Comment on above: Performed By: #### U RTPRT #### [address] [place], [facility]83 County Assessor: Morro Hale MD MCHC (RBC) [Mass/Vol] 32.4 g/dL Normal 28.4-34.8 [facility] Comment on above: Performed By: #### U RTPRT #### [facility] [address] [place] [address] Dr. [place], [facility]83 County Assessor: Morro Hale MD MCV (RBC) [Entitic vol] 83.6 fL Normal 82.6-102.9 [facility] Comment on above: Performed By: #### U RTPRT #### [facility] [address] [place] [address] County Assessor: Morro Hale MD Monocytes (Bld) [#/Vol] 0.53 10*3/uL Normal 0.10-1.20 [facility] Comment on above: Performed By: #### U RTPRT #### [facility] [address] [place], [place] [id number] County Assessor: Morro Hale MD Monocytes/100 WBC (Bld) 6 % Normal 3-12 [facility] Comment on above: Performed By: #### U RTPRT #### [facility] [address] [place] [id number] County Assessor: Morro Hale MD Neutrophil (Seg) 69 % High 36-65 [facility] Comment on above: Performed By: #### U RTPRT #### [facility] [address] [place], [place] 9199083 County Assessor: Morro Hale MD NRBC Automated 0.0 per 100 WBC Normal 0.0 [facility] Comment on above: Performed By: #### U RTPRT #### [facility] [address] [place], [facility] County Assessor: Morro Hale MD Platelet mean volume (Bld) [Entitic vol] 10.6 fL Normal 8.1-13.5 [facility] Comment on above: Performed By: #### U RTPRT #### [address] [place], [place] [id number] County Assessor: Morro Hale MD Platelets (Bld) [#/Vol] 224 10*3/uL Normal 138-453 [facility] Comment on above: Performed By: #### U RTPRT #### [facility] [address] [place], [place] [id number] County Assessor: Morro Hale MD RBC (Bld) [#/Vol] 4.14 10*6/uL Normal 3.95-5.11 [facility] Comment on above: Performed By: #### U RTPRT #### [facility] [address] [place], [place] 8261683 County Assessor: Morro Hale MD WBC (Bld) [#/Vol] 9.6 10*3/uL Normal 3.5-11.3 [facility] Comment on above: Performed By: #### U RTPRT #### [facility] [address] [place], [place] [id number] County Assessor: Morro Hale MD Comp Metabolic Profon 2021 (cont.) Normal [facility] Comment on above: Result Comment: Aver age GFR for 30-39 years old: 107 mL/min/1.73sq m Chronic Kidney Disease: <60 mL/min/1.73sq m Kidney failure: <15 mL/min/1.73sq m eGFR calculated using average adult body mass. Additional eGFR calculator available at: http://www.[employer]/multiple_crcl_2011.htm Performed By: #### U RTPRT #### [facility] [address] [place], [place] [id number] County Assessor: Morro Hale MD Albumin [Mass/Vol] 3.3 g/dL Low 3.5-5.2 [facility] Comment on above: Performed By: #### U RTPRT #### [facility] [address] [place] [address] Dr. [place], [place] [id number] County Assessor: Morro Hale MD Albumin/Glob Ratio 1.2 Normal 1.0-2.5 [facility] Comment on above: Performed By: #### U RTPRT #### [facility] [address] [place], [place] 9951583 County Assessor: Morro Hale MD Alkaline Phos 112 U/L High 35-104 [facility] Comment on above: Performed By: #### U RTPRT #### [facility] [address] [place], [place] 5617983 County Assessor: Morro Hale MD ALT [Catalytic activity/Vol] 11 U/L Normal 5-33 [facility] Comment on above: Performed By: #### U RTPRT #### [facility] [address] [place], [place] 4926183 County Assessor: Morro Hale MD Anion gap [Moles/Vol] 11 mmol/L Normal 9-17 [facility] Comment on above: Performed By: #### U RTPRT #### [facility] [address] [place], [place] 7544383 County Assessor: Morro Hale MD AST [Catalytic activity/Vol] 14 U/L Normal <32 [facility] Comment on above: Performed By: #### U RTPRT #### [facility] [address] [place], [place] 0348783 County Assessor: Morro Hale MD Bilirubin [Mass/Vol] 0.27 mg/dL Low 0.3-1.2 [facility] Comment on above: Performed By: #### U RTPRT #### [facility] [address] [place], [place] 0278283 County Assessor: Morro Hale MD BUN/CRE Ratio 19 Normal 9-20 [facility] Comment on above: Performed By: #### U RTPRT #### [facility] [address] [place], [place] 2881583 County Assessor: Morro Hale MD Calcium [Mass/Vol] 9.2 mg/dL Normal 8.6-10.4 [facility] Comment on above: Performed By: #### U RTPRT #### [facility] [address] [place], [place] 8648483 County Assessor: Morro Hale MD Chloride [Moles/Vol] 98 mmol/L Normal 98-107 [facility] Comment on above: Performed By: #### U RTPRT #### [facility] [address] [place], [place] 1420983 County Assessor: Morro Hale MD CO2 [Moles/Vol] 21 mmol/L Normal 20-31 [facility] Comment on above: Performed By: #### U RTPRT #### [facility] [address] [place], [place] 2274383 County Assessor: Morro Hale MD Creatinine [Mass/Vol] 0.58 mg/dL Normal 0.50-0.90 [facility] Comment on above: Performed By: #### U RTPRT #### [facility] [address] [place], [place] 5161083 County Assessor: Morro Hale MD GFR, Amer >60 Normal >60 [facility] Comment on above: Performed By: #### U RTPRT #### [facility] [address] [place], [place] 8392483 County Assessor: Morro Hale MD GFR,non Amer >60 Normal >60 [facility] Comment on above: Performed By: #### U RTPRT #### [facility] [address] [place], [place] 2328083 County Assessor: Morro Hale MD Glucose [Mass/Vol] 120 mg/dL High 70-99 [facility] Comment on above: Performed By: #### U RTPRT #### [facility] [address] [place], [place] 4746683 County Assessor: Morro Hale MD Potassium [Moles/Vol] 3.8 mmol/L Normal 3.7-5.3 [facility] Comment on above: Performed By: #### U RTPRT #### [facility] [address] [place] [address] County Assessor: Morro Hale MD Protein [Mass/Vol] 6.1 g/dL Low 6.4-8.3 [facility] Comment on above: Performed By: #### U RTPRT #### [facility] [address] [place], [place] 0568283 County Assessor: Morro Hale MD Sodium [Moles/Vol] 130 mmol/L Low 135-144 [facility] Comment on above: Performed By: #### U RTPRT #### [facility] [address] [place], [place] 1340383 County Assessor: Morro Hale MD Staging: Normal [facility] Comment on above: Result Comment: Stag e 1: Some kidney damage normal GFR Stage 2: Mild kidney damage GFR 60-89 Stage 3: Moderate kidney damage GFR 30-59 Stage 4: Severe kidney damage GFR 15-29 Stage 5: Severe kidney damage GFR <15 ESRD - chronic treatment by dialysis or transplant Performed By: #### U RTPRT #### [facility] [address] [place], [place] 3463183 County Assessor: Morro Hale MD Urea nitrogen [Mass/Vol] 11 mg/dL Normal 6-20 [facility] Comment on above: Performed By: #### U RTPRT #### [facility] [address] [place] [address] County Assessor: Morro Hale MD Comprehensive Metabolic Pane [facility] 10-12-2021 Albumin [Mass/Vol] 3.3 g/dL Low 3.5 [...] Abuse, Uron 2021 Amphetamine(s),Ur Negative Normal NEG [facility] Comment on above: Performed By: #### D AU #### [facility] [address] [place] [address] [place] [address] County Assessor: Morro Hale MD Barbiturate(s),Ur Negative Normal NEG [facility] Comment on above: Performed By: #### D AU #### [facility] [address] [place] [address] County Assessor: Morro Hale MD Benzodiazepine(s) Negative Normal NEG [facility] Comment on above: Performed By: #### D AU #### [facility] [address] [place] [address] [place] [address] County Assessor: Morro Hale MD Buprenorphrine, Ur Negative Normal NEG [facility] Comment on above: Performed By: #### D AU #### [facility] [address] [place] [address] County Assessor: Morro Hale MD Cannabinoid(s),Ur Negative Normal [facility] Comment on above: Performed By: #### D AU #### [facility] [address] [place] [address] [place] [address] County Assessor: Morro Hale MD Cocaine Metabolite Negative Normal [facility] Comment on above: Performed By: #### D AU #### [facility] [address] [place] [address] Dr[place], [place] 6653483 County Assessor: Morro Hale MD Methadone Ql (U) Negative Normal [facility] Comment on above: Performed By: #### D AU #### [address] [place] [address] County Assessor: Morro Hale MD Methamphetamine, Ur Negative Normal [facility] Comment on above: Performed By: #### D AU #### [facility] [address] [place] [address] Dr[place], [place] 5995583 County Assessor: Morro Hale MD Opiate(s), Ur Negative Normal [facility] Comment on above: Performed By: #### D AU #### [address] [place], [place] 8323283 County Assessor: Morro Hale MD Oxycodone, Urine Negative Normal [facility] Comment on above: Performed By: #### D AU #### [facility] [address] [place] [address] Dr. [place], [place] 6950283 County Assessor: Morro Hale MD Phencyclidine, Ur Negative Normal NEG [facility] Comment on above: Performed By: #### D AU #### [facility] [address] [place] [address] Dr[place], [place] 704[address]83 County Assessor: Morro Hale MD Propoxyphene,Urine Negative Normal [facility] Comment on above: Performed By: #### D AU #### [facility] [address] [place], [place] [phone] County Assessor: Morro Hale MD Tricyclic antidepressants Screen Ql (U) Negative Normal NEG [facility] Comment on above: Result Comment: Drug screen results are to be used for medical purposes only. All positive results are unconfirmed. Testing for employment or legal uses should be sent to a reference laboratory for confirmation. Performed By: #### D AU #### [facility] [address] [place], [place] 7856783 County Assessor: Morro Hale MD Fibrinogenon 10-12-2021 Fibrinogen 572 mg/dL High 179-518 [facility] Comment on above: Performed By: #### U RTPRT #### [facility] [address] [place] [address] Dr. [place], [place] 4905183 County Assessor: Morro Hale MD Fibrinogen 572 mg/dL High 179 - 518 mg/dL [facility] Interpretation and review of laboratory results Abnormal [facility] Glucose, Whole Bloodon 10-12 Glucose [Mass/Vol] 229 mg/dL High 74 - 100 mg/dL [facility] Interpretation and review of laboratory results Abnormal [facility] Glucose [Mass/Vol] 216 mg/dL High 74 - 100 mg/dL [facility] Interpretation and review of laboratory results Abnormal [facility] Glucose [Mass/Vol] 129 mg/dL High 74 - 100 mg/dL [facility] Interpretation and review of laboratory results Abnormal [facility] Laboratory - Chemistry and C hemistry - challengeon 10-12-2021 GFR/1.73 sq M.predicted MDRD (S/P/Bld) [Vol rate/Area] [facility] Comment on above: Average GFR for 30-3 9 years old: 107 mL/min/1.73sq m Chronic Kidney Disease: <60 mL/min/1.73sq m Kidney failure: <15 mL/min/1.73sq m eGFR calculated using average adult body mass. Additional eGFR calculator available at: http://www.[employer]/multiple_crcl_2011.htm Stage 1: Some kidney damage normal GFR Stage 2: Mild kidney damage GFR 60-89 Stage 3: Moderate kidney damage GFR 30-59 Stage 4: Severe kidney damage GFR 15-29 Stage 5: Severe kidney damage GFR <15 ESRD - chronic treatment by dialysis or transplant Lactate Dehydrogenaseon 04-0 LDH [Catalytic activity/Vol] 194 U/L Normal 135-214 [facility] Comment on above: Performed By: #### U RTPRT #### [facility] [address] [place] [address] [place] [address] County Assessor: Morro Hlae MD LD 194 U/L 135 - 214 U/L [facility] Magnesiumon 10-12-2021 Interpretation and review of laboratory results Abnormal [facility] Magnesium [Mass/Vol] 4.1 mg/dL Critically high 1.6 - 2.6 mg/dL [facility] Magnesium [Mass/Vol] 4.0 mg/dL Critically high 1.6-2.6 [facility] Comment on above: Performed By: #### M G #### [address] [place] [address] County Assessor: Morro Hale MD Interpretation and review of laboratory results Abnormal [facility] Magnesium [Mass/Vol] 4.0 mg/dL Critically high 1.6 - 2.6 mg/dL [facility] No Panel Informationon 10-12 [facility] OPERATIVE REPORTon OPERATIVE REPORT [address] [address] OPERATIVE REPORT PATIENT NAME: SOLANGE MURPHY : 1985 MED REC NO: [id number] ROOM: 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 head was elevated. Fundal pressure placed. [...] cut. Infant handed off to nursing and radar operator who attended the delivery. Cord blood specimen [...] noted to be correct. KANG PANDA MD [id number] Doc#: [id number] CC: [facility] 10-12-2021 INR Coag (PPP) [Relative time] 1.0 {INR} Normal [facility] Comment on above: Result Comment: Non-therapeutic Range: INR = 0.9-1.2 Therapeutic Range: Moderate Anticoagulant Intensity: INR = 2.0-3.0 High Anticoagulant Intensity: INR = 2.5-3.5 Performed By: #### U RTPRT #### [facility] [address] [place] [address] County Assessor: Morro Hale MD PT Coag (PPP) [Time] 13.1 s Normal 11.5-14.2 [facility] Comment on above: Performed By: #### U RTPRT #### [facility] [address] [place] [address] County Assessor: Morro Hale MD Protein / Creatinine Ratio, Urineon 10-12-2021 Creatinine, Ur 51.4 mg/dL 28.0 - 217.0 mg/dL [facility] Protein (U) [Mass/Vol] 5 mg/dL [facility] Comment on above: No normal range esta blished. Urine Total Protein Creatinine Ratio 0.10 [facility] Protein,Tot,Wisdom Uron 2021 Creatinine [Mass/Vol] 51.4 mg/dL Normal 28.0-217.0 [facility] Comment on above: Performed By: #### U RTPRT #### [address] [place] [address] County Assessor: Morro Hale MD Tot Prot. Conc. 5 mg/dL Normal [facility] Comment on above: Result Comment: No n ormal range established. Performed By: #### U RTPRT #### [facility] [address] [place] [address] County Assessor: Morro Hale MD TP/Cre Ratio 0.10 Normal 0.00-0.20 [facility] Comment on above: Performed By: #### U RTPRT #### [facility] [address] [place] [address] County Assessor: Morro Hale MD Protime-INRon 10-12-2021 INR Coag (Bld) [Relative time] 1.0 {INR} [facility] Comment on above: Non-therapeutic Range: INR = 0.9-1.2 Therapeutic Range: Moderate Anticoagulant Intensity: INR = 2.0-3.0 High Anticoagulant Intensity: INR = 2.5-3.5 PT Coag (PPP) [Time] 13.1 s [facility] Surgical Pathologyon 022 Surgical Pathology (NOTE) -- Diagnosis -- A. LEFT FALLOPIAN TUBE, SALPINGECTOMY: -NO PATHOLOGIC DIAGNOSIS B. RIGHT FALLOPIAN TUBE, SALPINGECTOMY: -NO PATHOLOGIC DIAGNOSIS C. THIRD TRIMESTER TYPE PLACENTA (675 G) DEMONSTRATING: -TWO-VESSEL HYPER SPIRALED UMBILICAL CORD -UNREMARKABLE PLACENTAL MEMBRANES -THIRD TRIMESTER TYPE PLACENTAL DISC DEMONSTRATING NO SIGNIFICANT HISTOPATHOLOGIC FEATURES Murphy Valle D.O. Electronically Signed [facility]10/16/2021 Clinical Information Operative Findings: L TUBE; [...] SURGICAL PATHOLOGY CONSULTATION Patient Name: SOLANGE MURPHY [facility] Rec: [id number] Path Number: [id number] [facility] ANATOMIC PATHOLOGY [address] [place] [address]. [place], [place] [address] Normal [facility] Comment on above: Performed By: #### M G #### [facility] [address] [place] [address] [place] [address] County Assessor: Morro Hale MD TYPE AND SCREENon 10-12-2021 ABO/Rh Positive [facility] Arm Band Number [id number] [facility] Expiration Date 10/15/2021,2359 [facility] Type + Screenon 10-12-2021 Type + Screen Sample Expiration 10/15/2021,2359 Arm Band Number [id number] ABO/Rh(D) O POSITIVE Antibody Screen NEGATIVE Normal [facility] Comment on above: Performed By: #### T YS #### [facility] [address] [place] [address] County Assessor: Morro Hale MD Uric Acidon 10-12-2021 Urate [Mass/Vol] 4.4 mg/dL Normal 2.4-5.7 [facility] Comment on above: Performed By: #### U RTPRT #### [facility] [address] [place] [address] County Assessor: Morro Hale MD Urate [Mass/Vol] 4.4 mg/dL 2.4 - 5.7 mg/dL [facility] Urinalysison 10-12-2021 Bilirubin [facility] Color, UA Yellow Yellow [facility] Glucose, Ur Negative NEGATIVE [facility] Ketones Ql (U) Negative NEGATIVE [facility] Leukocyte esterase Test strip Ql (U) Negative NEGATIVE [facility] Nitrite, Urine Negative NEGATIVE [facility] pH, UA 6.0 [facility] Protein, UA Negative NEGATIVE [facility] Specific [place], UA 1.015 [facility] Turbidity UA Clear Clear [facility] Urine Hgb Negative NEGATIVE [facility] Urobilinogen, Urine Normal Normal [facility] Urinalysis, Routineon 2021 Bilirubin, SemiQt,Ur Negative Normal NEG [facility] Comment on above: Performed By: #### M G #### [facility] [address] [place] [address] County Assessor: Morro Hale MD Blood, Urine Negative Normal [facility] Comment on above: Performed By: #### M G #### [facility] [address] [place] [address] County Assessor: Morro Hale MD Clarity (U) Clear Normal CLEAR [facility] Comment on above: Performed By: #### M G #### [facility] [address] [place] [id number] County Assessor: Morro Hale MD Color (U) Yellow Normal YEL [facility] Comment on above: Performed By: #### M G #### [facility] [address] [place] [address] County Assessor: Morro Hale MD Glucose Ql (U) Negative Normal NEG [facility] Comment on above: Performed By: #### M G #### [facility] [address] [place] [address] County Assessor: Morro Hale MD Ketones Ql (U) Negative Normal NEG [facility] Comment on above: Performed By: #### M G #### [facility] [address] [place] [address] Dr. [place], [place] 2229483 County Assessor: Morro Hale MD Leukocyte esterase Test strip Ql (U) Negative Normal NEG [facility] Comment on above: Performed By: #### M G #### [facility] [address] [place] [address] Dr. [place], [place] 1471683 County Assessor: Morro Hale MD Nitrite,Ur Negative Normal NEG [facility] Comment on above: Performed By: #### M G #### [address] [place], [place] 4587683 County Assessor: Morro Hale MD PH,Ur 6.0 Normal 5.0-9.0 [facility] Comment on above: Performed By: #### M G #### [facility] [address] [place] [address] Dr[place], [place] 2791283 County Assessor: Morro Hale MD Protein Ql (U) Negative Normal NEG [facility] Comment on above: Performed By: #### M G #### [facility] [address] [place] [address] Dr[place], [place] [id number] County Assessor: Morro Hale MD Spec. [place],Ur 1.015 Normal 1.010-1.02 0 [facility] Comment on above: Performed By: #### M G #### [facility] [address] [place] [address] Dr[place], [place] 9862383 County Assessor: Morro Hale MD Urobilinogen,Ur Normal Normal NORM [facility] Comment on above: Performed By: #### M G #### [facility] [address] [place] [address] [place] [address] County Assessor: Morro Hale MD Urine Drug Screenon 10-13-19 22 Amphetamine Screen, Ur Negative NEGATIVE [facility] Barbiturate Screen, Ur Negative NEGATIVE [employer] Benzodiazepine Screen, Urine Negative NEGATIVE [employer] Buprenorphine Urine Negative NEGATIVE [employer] Cannabinoid Scrn, Ur Negative NEGATIVE [employer] Cocaine Metabolite, Urine Negative NEGATIVE [employer] Methadone Screen, Urine Negative NEGATIVE [employer] Methamphetamine, Urine Negative NEGATIVE [employer] Opiates, Urine Negative NEGATIVE [facility] Oxycodone Screen, Ur Negative NEGATIVE [employer] Phencyclidine, Urine Negative NEGATIVE [employer] Propoxyphene, Urine Negative NEGATIVE [employer] Tricyclic Antidepressants, Urine Negative NEGATIVE [facility] Comment on above: Drug screen results are to be used for medical purposes only. All positive results are unconfirmed. Testing for employment or legal uses should be sent to a reference laboratory for confirmation. [employer] GBS, External Resulton 09-26 GBS, External Result Positive [employer] Work Phone: Verified with Jacqueline Manuel RN [employer] Work Phone: [employer] Work Phone: US Biophysical Profileon US Biophysical Profile FINDINGS: Breathing Movements2 Gross Body Movements 2 Tone2 Qualitative amniotic fluid volume2 A single, viable intrauterine is present. Heart rate 128 bpm. Cervix is closed 4.0 cm. Cephalic presentation, posterior fundal placenta, Grade 2. IMPRESSION: Posterior fundal placenta Grade 2 and normal biophysical profile. Report reported and signed by Ruben Howell on 09/26/2021 1028 Normal [facility] Ladies Locker Room Attendant US OB Limitedon 09-26-2021 US OB Limited [...] by Ruben Howell on 09/26/2021 0933 Normal [facility] OB Limitedon 09-18-2021 US OB Limited FINDINGS: [...] by Ruben Howell on 09/19/2021 0823 Normal [facility] Ladies Locker Room Attendant CBC with Auto Differentialon 09-16-2021 Absolute Eos # 0.12 [facility] Absolute Immature Granulocyte 0.10 [facility] Absolute Lymph # 2.44 [facility] Absolute Comal # 0.62 [facility] Basophils (Bld) [#/Vol] 0.04 10*3/uL [facility] [...] vol] 86.0 fL 82.6 - 102.9 fL [facility] Monocytes/100 WBC (Bld) 5 % 3 - 12 % [facility] NRBC Automated 0.0 0.0 per 100 WBC [facility] Platelet distribution width (Bld) [Ratio] 14.2 % 11.8 - 14.4 % [facility] Platelet mean volume (Bld) [Entitic vol] 9.6 fL 8.1 - 13.5 fL [facility] Platelets (Bld) [#/Vol] 210 10*3/uL [facility] RBC (Bld) [#/Vol] 4.07 10*6/uL 3.95 - 5.11 m/uL [facility] Segmented neutrophils/100 WBC (Bld) 72 % High 36 - 65 % [facility] Segs Absolute 8.37 High [facility] Southt h WBC (Bld) [#/Vol] 11.7 10*3/uL High [facility] CBC with Diffon 09-16-2021 Abs. Basophil 0.04 k/uL Normal 0.00-0.20 [facility] Comment on above: Performed By: #### L YUMIKO Marshall, URI, CDP #### [facility] [address] [place] [address] [address]. [place], [place] [id number] County Assessor: Morro Hale MD Abs.Imm.Granulocyte 0.10 k/uL Normal 0.00-0.30 [facility] Comment on above: Performed By: #### Elliot Marshall CP, FABIOLAI, CDP #### [address] [place] [id number] County Assessor: Morro Hale MD Abs.Neutrophil (Seg) 8.37 k/uL High 1.50-8.10 [facility] Comment on above: Performed By: #### Elliot Marshall CP, URI, CDP #### [address] [place], [place] [address] County Assessor: Morro Hale MD Basophils/100 WBC (Bld) 0 % Normal 0-2 [facility] Comment on above: Performed By: #### Elliot Marshall CP, URI, CDP #### [address] [place], [place] [id number] County Assessor: Morro Hale MD Eosinophils (Bld) [#/Vol] 0.12 10*3/uL Normal 0.00-0.44 [facility] Comment on above: Performed By: #### L YUMIKO Marshall, URI, CDP #### [address] [place] [address] County Assessor: Morro Hale MD Eosinophils/100 WBC (Bld) 1 % Normal 1-4 [facility] Comment on above: Performed By: #### L YUMIKO Marshall, URI, CDP #### [address] [place], [place] [id number] County Assessor: Morro Hale MD Erythrocyte distribution width (RBC) [Ratio] 14.2 % Normal 11.8-14.4 [facility] Comment on above: Performed By: #### L Carla, YUMIKO, URI, CDP #### [address] [place], [place] [id number] County Assessor: Morro Hale MD Hematocrit (Bld) [Volume fraction] 35.0 % Low 36.3-47.1 [facility] Comment on above: Performed By: #### L YUMIKO Marshall, URI, CDP #### [address] [place], [facility] County Assessor: Morro Hale MD Hemoglobin (Bld) [Mass/Vol] 11.2 g/dL Low 11.9-15.1 [facility] Comment on above: Performed By: #### Elliot Marshall CP URI, CDP #### [address] [place], [facility]83 County Assessor: Morro Hale MD Immature granulocytes/100 WBC (Bld) 1 % High 0 [facility] Comment on above: Performed By: #### L YUMIKO Marshall, URI, CDP #### [address] [place], [facility]83 County Assessor: Morro Hale MD Lymphocytes (Bld) [#/Vol] 2.44 10*3/uL Normal 1.10-3.70 [facility] Comment on above: Performed By: #### L YUMIKO Marshall, URI, CDP #### [address] [place], [place] [id number] County Assessor: Morro Hale MD Lymphocytes/100 WBC (Bld) 21 % Low 24-43 [facility] Comment on above: Performed By: #### L Carla, YUMIKO, URI, CDP #### [facility] [address] [place], [place] [id number] County Assessor: Morro Hale MD MCH (RBC) [Entitic mass] 27.5 pg Normal 25.2-33.5 [facility] Comment on above: Performed By: #### L Carla, YUMIKO, URI, CDP #### [facility] [address] [place], [facility]83 County Assessor: Morro Hale MD MCHC (RBC) [Mass/Vol] 32.0 g/dL Normal 28.4-34.8 [facility] Comment on above: Performed By: #### L Carla, YUMIKO, URI, CDP #### [address] [place], [place] [address] County Assessor: Morro Hale MD MCV (RBC) [Entitic vol] 86.0 fL Normal 82.6-102.9 [facility] Comment on above: Performed By: #### L Carla, YUMIKO, URI, CDP #### [address] [place], [facility]83 County Assessor: Morro Hale MD Monocytes (Bld) [#/Vol] 0.62 10*3/uL Normal 0.10-1.20 [facility] Comment on above: Performed By: #### L Carla, CP, URI, CDP #### [facility] [address] [place] [address] County Assessor: Morro Hale MD Monocytes/100 WBC (Bld) 5 % Normal 3-12 [facility] Comment on above: Performed By: #### L Carla, YUMIKO, URI, CDP #### [facility] [address] [place], [facility]83 County Assessor: Morro Hale MD Neutrophil (Seg) 72 % High 36-65 [facility] Comment on above: Performed By: #### L Carla, CP, URI, CDP #### [address] [place], [place] 9909383 County Assessor: Morro Hale MD NRBC Automated 0.0 per 100 WBC Normal 0.0 [facility] Comment on above: Performed By: #### L Carla, CP, URI, CDP #### [address] [place], [facility]83 County Assessor: Morro Hale MD Platelet mean volume (Bld) [Entitic vol] 9.6 fL Normal 8.1-13.5 [facility] Comment on above: Performed By: #### L Carla, CP, URI, CDP #### [address] [place], [facility]83 County Assessor: Morro Hale MD Platelets (Bld) [#/Vol] 210 10*3/uL Normal 138-453 [facility] Comment on above: Performed By: #### L Carla, YUMIKO, URI, CDP #### [address] [place], [facility]83 County Assessor: Morro Hale MD RBC (Bld) [#/Vol] 4.07 10*6/uL Normal 3.95-5.11 [facility] Comment on above: Performed By: #### L D, CP, URI, CDP #### [address] [place], [facility]83 County Assessor: Morro Hale MD WBC (Bld) [#/Vol] 11.7 10*3/uL High 3.5-11.3 [facility] Comment on above: Performed By: #### L Carla, CP, URI, CDP #### [address] [place], [facility]83 County Assessor: Morro Hale MD Comp Metabolic Profon 2021 (cont.) Normal [facility] Comment on above: Result Comment: Aver age GFR for 30-39 years old: 107 mL/min/1.73sq m Chronic Kidney Disease: <60 mL/min/1.73sq m Kidney failure: <15 mL/min/1.73sq m eGFR calculated using average adult body mass. Additional eGFR calculator available at: http://www.NextNine/multiple_crcl_2012.htm Performed By: #### L Carla, YUMIKO, URI, CDP #### [facility] [address] [place] [address] County Assessor: Morro Hale MD Albumin [Mass/Vol] 3.4 g/dL Low 3.5-5.2 [facility] Comment on above: Performed By: #### Elliot Marshall CP, URI, CDP #### [facility] [address] [place] [address] Dr. [place], [place] [id number] County Assessor: Morro Hale MD Albumin/Glob Ratio 1.2 Normal 1.0-2.5 [facility] Comment on above: Performed By: #### Elliot Marshall, YUMIKO, URI, CDP #### [address] [place] [address] County Assessor: Morro Hale MD Alkaline Phos 98 U/L Normal 35-104 [facility] Comment on above: Performed By: #### L Carla, CP, URI, CDP #### [facility] [address] [place], [place] 1382483 County Assessor: Morro Hale MD ALT [Catalytic activity/Vol] 10 U/L Normal 5-33 [facility] Comment on above: Performed By: #### L D, CP, URI, CDP #### [facility] [address] [place] [address] County Assessor: Morro Hale MD Anion gap [Moles/Vol] 8 mmol/L Low 9-17 [facility] Comment on above: Performed By: #### L D, CP, URI, CDP #### [facility] [address] [place] [address] County Assessor: Morro Hale MD AST [Catalytic activity/Vol] 13 U/L Normal <32 [facility] Comment on above: Performed By: #### L D, CP, URI, CDP #### [facility] [address] [place], [place] [address]83 County Assessor: Morro Hale MD Bilirubin [Mass/Vol] 0.17 mg/dL Low 0.3-1.2 [facility] Comment on above: Performed By: #### L D, CP, URI, CDP #### [address] [place] [address] County Assessor: Morro Hale MD BUN/CRE Ratio 21 High 9-20 [facility] Comment on above: Performed By: #### L Carla, CP, URI, CDP #### [address] [place], [place] 8068383 County Assessor: Morro Hale MD Calcium [Mass/Vol] 9.1 mg/dL Normal 8.6-10.4 [facility] Comment on above: Performed By: #### L D, CP, URI, CDP #### [facility] [address] [place] [address] Dr. [place], [place] 6053183 County Assessor: Morro Hale MD Chloride [Moles/Vol] 103 mmol/L Normal 98-107 [facility] Comment on above: Performed By: #### L D, CP, URI, CDP #### [facility] [address] [place] [address] County Assessor: Morro Hale MD CO2 [Moles/Vol] 24 mmol/L Normal 20-31 [facility] Comment on above: Performed By: #### L D, CP, URI, CDP #### [facility] [address] [place], [place] 3065683 County Assessor: Morro Hale MD Creatinine [Mass/Vol] 0.48 mg/dL Low 0.50-0.90 [facility] Comment on above: Performed By: #### L D, CP, URI, CDP #### [facility] [address] [place], [place] 6512383 County Assessor: Morro Hale MD GFR, Amer >60 Normal >60 [facility] Comment on above: Performed By: #### L D, CP, URI, CDP #### [address] [place], [place] [address]83 County Assessor: Morro Hale MD GFR,non Amer >60 Normal >60 [facility] Comment on above: Performed By: #### L D, CP, URI, CDP #### [facility] [address] [place] [address] Dr. [place], [place] 8003983 County Assessor: Morro Hale MD Glucose [Mass/Vol] 162 mg/dL High 70-99 [facility] Comment on above: Performed By: #### L D, CP, URI, CDP #### [address] [place], [place] 737[address]83 County Assessor: Morro Hale MD Potassium [Moles/Vol] 3.9 mmol/L Normal 3.7-5.3 [facility] Comment on above: Performed By: #### L D, CP, URI, CDP #### [facility] [address] [place] [address] County Assessor: Morro Hale MD Protein [Mass/Vol] 6.2 g/dL Low 6.4-8.3 [facility] Comment on above: Performed By: #### L D, CP, URI, CDP #### [facility] [address] [place] [address] County Assessor: Morro Hale MD Sodium [Moles/Vol] 135 mmol/L Normal 135-144 [facility] Comment on above: Performed By: #### L D, CP, URI, CDP #### [facility] [address] [place] [address] County Assessor: Morro Hale MD Staging: Normal [facility] Comment on above: Result Comment: Stag e 1: Some kidney damage normal GFR Stage 2: Mild kidney damage GFR 60-89 Stage 3: Moderate kidney damage GFR 30-59 Stage 4: Severe kidney damage GFR 15-29 Stage 5: Severe kidney damage GFR <15 ESRD - chronic treatment by dialysis or transplant Performed By: #### L Carla, CP, URI, CDP #### [facility] [address] [place] [address] County Assessor: Morro Hale MD Urea nitrogen [Mass/Vol] 10 mg/dL Normal 6-20 [facility] Comment on above: Performed By: #### L D, CP, URI, CDP #### [facility] [address] [place] [address] County Assessor: Morro Hale MD Comprehensive Metabolic Pane [facility] 09-16-2021 Albumin [Mass/Vol] 3.4 g/dL [...] body mass. Additional eGFR calculator available at: http://www.[employer]MoL[employer]/multiple_crcl_2011.htm Stage 1: Some kidney damage normal GFR Stage 2: Mild kidney damage GFR 60-89 Stage 3: Moderate kidney damage GFR 30-59 Stage 4: Severe kidney damage GFR 15-29 Stage 5: Severe kidney damage GFR <15 ESRD - chronic treatment by dialysis or transplant Lactate Dehydrogenaseon 09-05 LDH [Catalytic activity/Vol] 174 U/L Normal 135-214 [facility] Comment on above: Performed By: #### L D, CP, URI, CDP #### [facility] [address] [place] [address] County Assessor: Morro Hale MD LD 174 U/L 135 - 214 U/L [facility] No Panel Informationon 09-16 [facility] Protein / Creatinine Ratio, Urineon 09-16-2021 Creatinine, Ur 93.8 mg/dL 28.0 - 217.0 mg/dL [facility] Protein (U) [Mass/Vol] 7 mg/dL [facility] Comment on above: No normal range esta blished. Urine Total Protein Creatinine Ratio 0.07 [facility] Protein,Tot,Wisdom Uron 2021 Creatinine [Mass/Vol] 93.8 mg/dL Normal 28.0-217.0 [facility] Comment on above: Performed By: #### U RTPRT #### [facility] [address] [place] [address] County Assessor: Morro Hale MD Tot Prot. Conc. 7 mg/dL Normal [facility] Comment on above: Result Comment: No n ormal range established. Performed By: #### U RTPRT #### [facility] [address] [place] [address] County Assessor: Morro Hale MD TP/Cre Ratio 0.07 Normal 0.00-0.20 [facility] Comment on above: Performed By: #### U RTPRT #### [facility] [address] [place], [place] [address]83 County Assessor: Morro Hale MD Uric Acidon 09-16-2021 Urate [Mass/Vol] 2.8 mg/dL Normal 2.4-5.7 [facility] Comment on above: Performed By: #### L D, CP, URI, CDP #### [facility] [address] [place] [address] County Assessor: Morro Hale MD Urate [Mass/Vol] 2.8 mg/dL 2.4 - 5.7 mg/dL [facility] US OB Limitedon 09-07-2021 US OB Limited FINDINGS: Single viable intrauterine . BEN 17.0 cm. Closed cervix 4.3 cm length. Cephalic presentation. IMPRESSION: 1. Single viable intrauterine , cephalic presentation. 2. BEN 17.0 cm. Report reported and signed by Ruben Howell on 09/07/2021 1019 Normal [facility] Ladies Locker Room Attendant COVID Quick Testingon 2020 Result Negative [employer] Other Quick Strepon 06-14-2021 S. pyogenes Org specific cx Ql (Throat) Negative [employer] Other Quick Strep [facility] [facility] Normal [facility] Comment on above: Order Comment: @[facility] Test Name: INHERITEST CARRIER SCREEN [id number] CPT 13966;21874;76508 Result Comment: See report. Scanned copy available in EMR. PERFORMED BY: [place] [address] PATHOLOGIST [facility]UCATIONAL INSTITUTION PRESIDENT FILEMON VARGAS M.D. Performed By: #### M [facility] #### [address] ABO, External Resulton 03-22 ABO, External Result o [employer] Work Phone: C. Trachomatis, External Res [facility] 03-22-2021 C. Trachomatis, External Result Negative [employer] Work Phone: HIV, External Resulton 03-22 HIV, External Result Non-Reactive [employer] Work Phone: Hepatitis B, External Result on 03-22-2021 Hep B, External Result Non-Reactive [employer] Work Phone: N. Gonorrhoeae, External Res [facility] 03-22-2021 N. Gonorrhoeae, External Result Negative [employer] Phone: No Panel InformationOrdered By: Nerissa Lerma on 03-22-2021 [employer] No Panel Informationon 03-22 Verified with Jacqueline Manuel RN [employer] Phone: [employer] Phone: RPR, External Labon 03-22-20 21 RPR, External Result Non-Reactive [employer] Phone: Rh Factor, External ResultOr dered By: Nerissa Lerma on 03-22-2021 Rh Factor, External Result + [employer] Rubella Titer, External Resu lton 03-22-2021 Rubella Titer, External Result immune [employer] Phone: Coding Summaryon 04-23-2017 Coding Summary CODING DATE: 017 [facility] STATUS: Home PAYOR: Tremaine Nazario ADMIT DX: REASON FOR VISIT DX: [phone] [...] Mccracken Date Saved: 04/23/2017 01:25 pm Normal [facility] ED Clinical Summaryon 2016 ED Clinical Summary [facility] ? Urgent [address] [place], [place] [id number] clinical SummaryPERSON INFORMATIONName: LINDASTAS MORENOSOLANGEMIRIAN PAREDES Age: 32 Years Sex: FEMALEDOB: [birth year] MRN: Acct#:Visit Reason: Lower leg pain-swelling; LEFT LEG PAIN AND SWELLING Arrival:04/12/17 12:10:00 Discharge: 04/12/17 12:37:00LOS: 000 00:27 Check In: 04/12/17 12:10:00 Checkout: 04/12/17 12:37:00[address] [facility] [address]UMG: Edward PagePROVIDER INFORMATIONProvider Role Assigned UnassignedBentley Amin PA-C ED ANA CRISTINA 04/12/17 12:23:22VITALS INFORMATIONVital Sign Triage LatestTemperature TympanicTemperature Temporal ArteryPulse Rate 97 bpm 97 bpmO2 Sat 98 % 98 %Respiratory Rate 20 br/min 20 br/minBlood Pressure 120 mmHg/90 mmHg 120 mmHg/90 mmHgMEDICAL INFORMATIONMedications Given:Allergy Information:PHYSICIAN DOCUMENTATIONDISCHARGE INFORMATION:Discharge Disposition: HomeDischarge Location: HomePATIENT EDUCATION INFORMATIONInstructions: Muscle Strain, Zhef-vv-QgrnPajbxk-Up:With: Address: When:Rober Shalini [address] [place] [address], [place], [phone] Business (2) Within 3 to 5 days, only if neededWith: Address: When:Edward Page [address] [place] [address] Business (1) Within 3 to 5 daysDIAGNOSIS:Muscle strain of lower legComment: Normal [facility] ED Note - Physicianon 2016 ED Note - Physician Patient: NILTON BROWER : 32 years Sex: FEMALE : [birth year]Associated Diagnoses: Muscle strain of lower legAuthor: Bentley Amin-CHistory of Present IllnessThis is a 32 year old here today with concerns of feeling a pop in her calf while bending over to meat pickler her 4 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 [...] mmHg SpO2 98 % O2 Flow 0 L/min.Gweyhuqbdzlz57/06/17 12:15 EDT Height/Length Dosing 157.4 cm Weight [...] ice and elevate. OTC Motrin for pain, [place] as needed for severe pain. Return with new, or worsening symptoms, or symptoms failing to improve as expected and the patient voiced their understanding. Questions answered. Follow-up with their family doctor as directed, return here sooner as needed. See ortho as needed.Impression and PlanDiagnosisMuscle strain of lower leg (CFU31-CL S86.919A, Discharge, Medical)PlanCondition: Stable.Disposition: Discharged: Time 04/12/17 12:36:00, to home.Prescriptions: Launch prescriptionsPharmacy:[place] 5 mg-325 mg oral tablet (Prescribe): 1 tab(s), PO, q6hr, for 3 day(s), PRN: for pain, 12 tab(s), 0 Refill(s).Patient was given the following educational materials: Muscle Strain, Noaj-vc-Pnax, Muscle Strain, Rmgu-cp-Mrbm.Follow up with: dEward Page Within 3 to 5 days; Rober Loya Within 3 to 5 days, only if needed.Counseled: Patient, Regarding diagnosis, Regarding treatment plan, Regarding prescription, Patient indicated understanding of instructions.Orders: Launch OrdersMiscellaneous Request:Excuse from Work/School (Order): 04/12/17 12:49 EDT, May require sitting intermittently for the next week..[Electronically Signed on: 04/12/2017 12:51 EDT] Bentley Amin PA-C[Verified on: 04/12/2017 12:51 EDT] Bentley Amin PA-C [facility] ED Patient Summaryon 017 ED Patient Summary [facility] ? Urgent [address] [place] [id number] pATIENT DISCHARGE INSTRUCTIONSPatient InformationName: LINDAJOSH SOLANGE PAREDES Age: 32 YearsDate of : [birth year]MRN: [id number] For Visit: Lower leg pain-swelling; LEFT LEG PAIN AND SWELLINGArrival Time: 04/12/17 12:10:00Phone: Primary Care Physician: Pat Page Physician: Bentley Aminomment:Patient EducationWith: Address: When:Rober Loya [address] [place] [address], [place], [phone] Business (2) Within 3 to 5 days, only if neededWith: Address: When:Edward Page [address] [place] [phone] Business (1) Within 3 to 5 daysMuscle [...] Reviewed: 01/21/2014Luz Maria Interactive Patient Education ?2016 [employer]Medication Information:The exam and treatment you received today in the [facility] Emergency Department were for an urgent problem and are not intended as complete care. It is important for you to follow up with a doctor, nurse practitioner, or physician?s neurosurgical physician assistant for ongoing care. If your symptoms [...] number so we can reach you if necessary.[facility] Emergency Department has provided you with a complete list of medications post discharge. Please inform your cut off saw operator metal/provider of your visit and for further instruction on these medications. Any specific questions regarding your chronic medications and dosages should be discussed with your primary care physician(s) and/or pharmacist. New MedicationsPrinted Prescriptionsacetaminophen-h ydrocodone ([place] 5 mg-325 mg oral tablet) 1 tab(s) Oral Every 6 hours as needed for pain for 3 Days. Refills: 0.Visit InformationVisit Diagnosis:Diagnoses This Visit Lower leg pain-swelling ([id number]) Muscle strain of lower leg (S86.919A)If you [...] Disease Control and Prevention March 2014 Normal [facility] [place] 017 Urgent Care Record [facility] ? Urgent [address] [place] [address] pATIENT DISCHARGE INSTRUCTIONSPatient InformationName: SOLANGE BROWER Age: 32 YearsDate of : [birth year]MRN: [id number] For Visit: Lower leg pain-swelling; LEFT LEG PAIN AND SWELLINGArrival Time: 04/12/17 12:10:00Phone: Primary Care Physician: Edward PageAttlyle Physician: Bentley Amin PA-CComment:Visit Diagnosis:Diagnoses This Visit Lower leg pain-swelling ([id number]) Muscle strain of lower leg (S86.913B)If you received any narcotics, sedation, or any [...] sign any legal documentsWith: Address: When:Rober Loya [address] [place] [address], [address] [place], [phone] Business (2) Within 3 to 5 days, only if neededWith: Address: When:Edward Bower[address] [place] [address] Business (1) Within 3 to 5 daysMedication Information:The exam and treatment you received today in the [facility]gent Care were for an urgent problem and are not intended as complete care. It is important for you to follow up with a doctor, nurse practitioner, or physician?s neurosurgical physician assistant for ongoing care. If your symptoms [...] number so we can reach you if necessary.[facility] Care has provided you with a complete list of medications post discharge. Please inform your cut off saw operator metal/provider of your visit and for further instruction on these medications. Any specific questions regarding your chronic medications and dosages should be discussed with your primary care physician(s) and/or pharmacist. New MedicationsPrinted Prescriptionsacetaminophen-h ydrocodone ([place] 5 mg-325 mg oral tablet) 1 tab(s) [...] Reviewed: 01/21/2014Luz Maria Interactive Patient Education ?2016 [employer] Viruses or BacteriaWhat?s got you sick?Antibiotics [...] the Answerwww.cdc.gov/getsmart GET SMART Know When Antibiotics Jenn.[place] Department of Health and Human ServicesFirelands Regional Medical Centerers for Disease Control and Prevention March 2014 [facility] Vital Signs Date Time Vital Sign Value Performing Clinician Facility 12-23-2023 15:270400 Body height 157.48 cm [facility] 12-23-2023 15:27-0400 Body mass index (BMI) [Ratio] 30.2 kg/m2 [facility] 12-23-2023 15:270400 Body weight 74.84 kg [facility] 12-23-2023 15:27-0400 Diastolic blood pressure 78 mm[Hg] [facility] 12-23-2023 15:27-0400 Heart rate 67 /min [facility] 12-23-2023 15:270400 Respiratory rate 12 /min [facility] 12-23-2023 15:27-0400 Systolic blood pressure 122 mm[Hg] [facility] 10-14-2021 07:24-0400 Body temperature 97.39 [degF] Bryanna Pool ROADSIDE MECHANIC - CNM Work Phone: [facility] 10-14-2021 07:24-0400 Diastolic blood pressure 75 mm[Hg] Bryanna Pool ROADSIDE MECHANIC - CNM Work Phone: [facility] 10-14-2021 07:24-0400 Heart rate 67 /min Bryanna Pool ROADSIDE MECHANIC - CNM Work Phone: [facility] 10-14-2021 07:24-0400 Respiratory rate 16 /min Bryanna Pool ROADSIDE MECHANIC - CNM Work Phone: [facility] 10-14-2021 07:24-0400 Systolic blood pressure 119 mm[Hg] Bryanna Pool ROADSIDE MECHANIC - CNM Work Phone: [facility] 10-13-2021 06:01-0400 SaO2% (BldA) [Mass fraction] 96 % Bryanna Pool ROADSIDE MECHANIC - CNM Work Phone: [employer] 10-12-2021 10:22-0400 Body mass index (BMI) [Ratio] 52.13 kg/m2 Bryanna Pool ROADSIDE MECHANIC - CNM Work Phone: [employer] 10-12-2021 10:22-0400 Body weight 129.28 kg Bryanna Pool ROADSIDE MECHANIC - CNM Work Phone: [employer] 10-07-2021 14:56-0400 Diastolic blood pressure 64 mm[Hg] Dianne Dang APRN - CNM Work Phone: [employer] 10-07-2021 14:56-0400 Heart rate 76 /min Dianne Dang APRN - CNM Work Phone: [employer] 10-07-2021 14:56-0400 Systolic blood pressure 123 mm[Hg] Dianne Dang APRN - CNM Work Phone: [employer] 10-07-2021 14:23-0400 Respiratory rate 18 /min Dianne Dang APRN - CNM Work Phone: [employer] 09-30-2021 14:03-0400 Body height 157.5 cm Dianne Dang APRN - CNM Work Phone: [employer] 09-30-2021 14:03-0400 Body mass index (BMI) [Ratio] 51.58 kg/m2 Dianne Dang APRN - CNM Work Phone: [employer] 09-30-2021 14:03-0400 Body temperature 98.01 [degF] Dianne Dang APRN - CNM Work Phone: [employer] 09-30-2021 14:03-0400 Body weight 127.91 kg Dianne Dang APRN - CNM Work Phone: [employer] 09-23-2021 15:35-0400 Body temperature 98.2 [degF] Dianne Dang APRN - CNM Work Phone: [employer] 09-23-2021 15:35-0400 Diastolic blood pressure 73 mm[Hg] Dianne Rosaleso ROADSIDE MECHANIC - CNM Work Phone: [employer] 09-23-2021 15:35-0400 Heart rate 96 /min Dianne Rosaleso ROADSIDE MECHANIC - CNM Work Phone: [employer] 09-23-2021 15:35-0400 Respiratory rate 18 /min Dianne Rosaleso ROADSIDE MECHANIC - CNM Work Phone: [employer] 09-23-2021 15:35-0400 Systolic blood pressure 118 mm[Hg] Dianne Rosaleso ROADSIDE MECHANIC - CNM Work Phone: [employer] 09-16-2021 15:59-0500 Diastolic blood pressure 72 mm[Hg] Dianne Connieo ROADSIDE MECHANIC - CNM Work Phone: [employer] 09-16-2021 15:59-0500 Heart rate 77 /min Dianne Rosaleso ROADSIDE MECHANIC - CNM Work Phone: [employer] 09-16-2021 15:59-0500 Systolic blood pressure 141 mm[Hg] Dianne Rosaleso ROADSIDE MECHANIC - CNM Work Phone: [employer] 09-16-2021 14:25-0500 Body height 157.5 cm Dianne Rosaleso ROADSIDE MECHANIC - CNM Work Phone: [employer] 09-16-2021 14:25-0500 Body mass index (BMI) [Ratio] 49.38 kg/m2 Dianne Rosaleso ROADSIDE MECHANIC - CNM Work Phone: [employer] 09-16-2021 14:25-0500 Body temperature 97.81 [degF] Dianne Rosaleso ROADSIDE MECHANIC - CNM Work Phone: [employer] 09-16-2021 14:25-0500 Body weight 122.47 kg Dianne Rosaleso ROADSIDE MECHANIC - CNM Work Phone: [employer] 09-16-2021 14:25-0500 Respiratory rate 16 /min Dianne Dang APRN - CNM Work Phone: [employer] 09-09-2021 14:06-0500 Diastolic blood pressure 68 mm[Hg] Dianne Dang APRN - CNM Work Phone: [employer] 09-09-2021 14:06-0500 Heart rate 78 /min Dianne Dang APRN - CNM Work Phone: [employer] 09-09-2021 14:06-0500 Systolic blood pressure 124 mm[Hg] Dianne Dang APRN - CNM Work Phone: [employer] 09-09-2021 14:04-0500 Body height 158.8 cm Dianne Dang APRN - CNM Work Phone: [employer] 09-09-2021 14:04-0500 Body mass index (BMI) [Ratio] 49.5 kg/m2 Dianne Dang APRN - CNM Work Phone: [employer] 09-09-2021 14:04-0500 Body temperature 98.01 [degF] Dianne Dang APRN - CNM Work Phone: [employer] 09-09-2021 14:04-0500 Body weight 124.74 kg Dianne Dang APRN - CNM Work Phone: [employer] 09-09-2021 14:04-0500 Respiratory rate 18 /min Dianne Dang APRN - CNM Work Phone: [employer] 06-14-2021 15:00-0500 Body height 157.48 cm Margie Fish Other [facility] Other 06-14-2021 15:00-0500 Body mass index (BMI) [Ratio] 45.72 kg/m2 Margie Fish Other [employer] Other 06-14-2021 15:00-0500 Body temperature 98.3 [degF] Margie Fish Other [employer] Other 06-14-2021 15:00-0500 Body weight 113.4 kg Margie Fish Other [facility] Other 06-14-2021 15:00-0500 Respiratory rate 18 /min Margie Fish Other [employer] Other 06-14-2021 15:00-0500 SaO2% (BldA) [Mass fraction] 98 % Margie Fish Other [employer] Other Encounters Encounter Date Encounter Type Care Provider Facility Start: 02-17-2024 End: 02[facility]17[facility]20[facility] Start: 01-29-2024 End: 01-29-2024 ambulatory [facility] Start: 01-27-2024 ambulatory DIANNE Hughesa ilable Start: 01-13-2024 End: 01-13-2024 ambulatory [facility] Start: 12-29-2023 ambulatory EDWARD [facility]ijo [facility] Start: 12-26-2023 [facility] Start: 12-23-2023 End: 12-23-2023 ambulatory [facility] Work Phone: Start: 12-23-2023 End: 12-23-2023 Patient encounter procedure [facility] Work Phone: Start: 12-20-2023 End: 12-20-2023 ambulatory [facility] Start: 12-18-2023 ambulatory EDWARD Armijo [facility] Start: 12-18-2023 Non-patient / Non-visit [facility] [employer] Work Phone: Start: 12-17-2023 End: 12-26-2023 Emergency department patient visit EDWARD PAGE [facility] Start: 12-17-2023 Non-patient / Non-visit [facility] [employer] Work Phone: Start: 12-16-2023 End: 12-16-2023 ambulatory DIANNE DANG Not Available Start: 05-03-2023 End: 05-03-2023 ambulatory Edward Page Other [facility] Other Start: 05-03-2023 Office outpatient vi sit 15 minutes Edward Ball [facility] Start: 04-23-2023 End: 04-23-2023 ambulatory Edward Page Other [facility] Other Start: 04-23-2023 Telephone encounter Edward Page [facility] Start: 04-22-2023 End: 04-22-2023 ambulatory Edward Page Other [employer] Other Start: 04-22-2023 Telephone encounter Edward Page [facility] Start: 04-09-2023 End: 04-09-2023 ambulatory Edward Page Other [employer] Other Start: 04-09-2023 Office outpatient vi sit 15 minutes Edward Ball [facility] Start: 09-20-2022 End: 09-20-2022 ambulatory Edward Page Other [employer] Other Start: 09-20-2022 Telephone encounter Edward Page [facility] Start: 08-29-2022 End: 08-29-2022 ambulatory Edward Richar Other [employer] Other Start: 08-29-2022 Office outpatient vi sit 15 minutes Edward Ball [facility] Start: 08-17-2022 Telephone encounter Edward Page [facility] Start: 08-17-2022 End: 08-18-[address] EDWARD PAGE Facility: Start: 08-17-2022 End: 08-18-2022 amb[facility] Facility: Start: 10-12-2021 End: 10-14-2021 Evaluation and management of inpatient BRYANNA BARTH [facility] Start: 10-12-2021 End: 10-14-2021 Evaluation and management of inpatient Bryanna Barth [facility] Work Phone: [facility] Comment on above: Born by sec tion (Primary Dx) Start: 10-07-2021 End: 10-07-2021 ambulatory [facility] Start: 10-07-2021 End: 10-07-2021 Subsequent hospital visit by physician Dianne Clark CNM Work Phone: [facility] Comment on above: Diet controlled gest ational diabetes mellitus (GDM) in third trimester Start: 09-30-2021 End: 09-30-2021 ambulatory [facility] Start: 09-30-2021 End: 09-30-2021 Subsequent hospital visit by physician Dianne Clark CNM Work Phone: [facility] Start: 09-23-2021 End: 09-23-2021 ambulatory [facility] Start: 09-23-2021 End: 09-23-2021 Subsequent hospital visit by physician Dianne Clark CNM Work Phone: [facility] Comment on above: Diet controlled gest ational diabetes mellitus (GDM) in third trimester Start: 09-16-2021 End: 09-16-2021 [facility] Start: 09-16-2021 End: 09-16-2021 Subsequent hospital visit by physician Dianne Clark CNM Work Phone: [facility] Comment on above: Diet controlled gest ational diabetes mellitus (GDM) in third trimester Start: 09-09-2021 End: 09-09-2021 ambulatory [facility] Start: 09-09-2021 End: 09-09-2021 Subsequent hospital visit by physician Dianne Dang ROADSIDE MECHANIC - CNM Work Phone: [facility] Labor and Delivery Comment on above: Diet controlled gest ational diabetes mellitus (GDM) in third trimester Start: 09-02-2021 End: 09-02-2021 ambulatory [facility]NE DANG [facility] Start: 06-14-2021 (URG) Urgent Care Visit Margie marshall [facility] Angel Start: 06-14-2021 End: 06-14-2021 ambulatory Margie Fish Other [facility] [employer] Other Start: 04-12-2017 End: 04-12-2017 Ambulatory [facility] Facility:[facility] Procedures Date Procedure Procedure Detail Performing Clinician Start: 02-17-2024 Follow-up visit Follow-up Dante LUNDBERG Start: 10-14-2021 GLUCOSE, WHOLE BLOOD Va lerlinda Rosaleso ROADSIDE MECHANIC - CNM Work Phone: Start: 10-13-2021 GLUCOSE, WHOLE BLOOD Va lerie Floro ROADSIDE MECHANIC - CNM Work Phone: Start: 10-13-2021 GLUCOSE, WHOLE BLOOD Va lerie Floro ROADSIDE MECHANIC - CNM Work Phone: Start: 10-13-2021 GLUCOSE, WHOLE BLOOD Va lerie Floro ROADSIDE MECHANIC - CNM Work Phone: Start: 10-13-2021 Assay of magnesium [place] karo Connieo ROADSIDE MECHANIC - CNM Work Phone: Start: 10-13-2021 Blood count hemoglobin Dianne Floro ROADSIDE MECHANIC - CNM Work Phone: Start: 10-13-2021 GLUCOSE, WHOLE BLOOD Va lerie Floro ROADSIDE MECHANIC - CNM Work Phone: Start: 10-13-2021 Assay of magnesium Mendy karo Floro ROADSIDE MECHANIC - CNM Work Phone: Start: 10-12-2021 GLUCOSE, WHOLE BLOOD Va lerie Floro ROADSIDE MECHANIC - CNM Work Phone: Start: 10-12-2021 GLUCOSE, WHOLE BLOOD Zoila Dang ROADSIDE MECHANIC - CN Work Phone: Start: 10-12-2021 GLUCOSE, WHOLE BLOOD Zoila Dang ROADSIDE MECHANIC - CN Work Phone: Start: 10-12-2021 Antibody screen Eveline Barth ROADSIDE MECHANIC - CN Work Phone: Start: 10-12-2021 Blood typing serologic abo Bryanna Barth ROADSIDE MECHANIC - CN Work Phone: Start: 10-12-2021 End: 10-12-2021 Comprehensive metabolic panel Bryanna Barth ROADSIDE MECHANIC - CN Work Phone: Start: 10-12-2021 Drug screen class list a Bryanna Barth ROADSIDE MECHANIC - CN Work Phone: Start: 10-12-2021 Urnls dip stick/tabl et rgnt auto w/o microscopy Bryanna Barth ROADSIDE MECHANIC - [facility] Work Phone: Start: 10-07-2021 nonstress test Zoila Dang ROADSIDE MECHANIC - [facility] Work Phone: Start: 09-26-2021 GBS, EXTERNAL RESULT Derick mendez Provider Start: 09-16-2021 End: 09-16-2021 Comprehensive metabolic panel [facility] Work Phone: Start: 09-16-2021 nonstress test Zoila Dang [facility] Work Phone: Start: 03-22-2021 ABO, EXTERNAL RESULT Derick mendez Provider Start: 03-22-2021 C. TRACHOMATIS, EXTE RNAL RESULT Historical Provider Start: 03-22-2021 HEPATITIS B, EXTERNA L RESULT Historical Provider Start: 03-22-2021 HIV, EXTERNAL RESULT Derick boydical Provider Start: 03-22-2021 N. GONORRHOEAE, EXTE RNAL [...] Start: 10-12-2022 Creatinine measurement Creatinine mo nitoring [facility] Start: 10-12-2022 Potassium monitoring Potassium monit oring [facility] Start: 03-08-2022 Influenza vaccination Flu vacc ine (Season Ended) [facility] Start: 01-11-2022 Hemoglobin A1c measurement A1C test (Diabetic or Prediabetic) [facility] Start: 10-21-2021 End: 10-21-2021 Patient encounter procedure 10/21/2021 Appointment IP Unit [facility] OP LD Start: 10-18-2021 Subsequent hospital visit by physician 10/18/2021 Hospital Encounter Obstetrics and Gynecology Dianne Dang, ESTHER - CNMonica [address] [place] [address] [facility] Delivery Start: 10-17-2021 End: [...] LD Start: 2021 Diabetes screen Diabetes screen [facility] Start: 03-08-2021 Influenza vaccination Flu vaccine (# 1) [facility] Start: 2016 Screening for malign ant neoplasm of cervix [facility] Start: 2007 Screening for malign ant neoplasm of cervix Pap smear [facility] Start: 2001 HIV screening HIV screen [facility] Start: 1998 Depression Screen Depression Screen [employer] Start: 1991 COVID-19 Vaccine (1) COVID-19 Vaccin e (1) [facility] Start: 1987 Varicella vaccine (1 of 2 - 2-dose childhood series) Varicella vaccine (1 of 2 - 2-dose childhood series) [employer] Start: 1986 Hepatitis C screening Hepatitis C sc reen [facility] End: 09-09-2021 nonstress test [employer] Phone: Comment on above: 1 Occurrences starti ng 09/09/2021 until 09/09/2021 As Needed for 8 Occu rrences starting 09/09/2021 End: 09-23-2021 nonstress test nonstress test OB Routine Diet controlled gestational diabetes mellitus (GDM) in third trimester 1 Occurrences starting 09/23/2021 until 09/23/2021 [employer] Phone: Comment on above: 1 Occurrences starti ng 09/23/2021 until 09/23/2021 End: 10-13-2021 Glucose [Mass/volume] in Serum or Plasma Glucose, Random Lab Timed Tomorrow AM for 1 Occurrences starting 10/13/2021 until 10/13/2021 [employer] Phone: Comment on above: Tomorrow AM for 1 Oc currences starting 10/13/2021 until 10/13/2021 Glucose [Mass/volume ] in Serum or Plasma [employer] Phone: Comment on above: 4X Daily (AC & HS) u ntil discontinued starting 10/12/2021 As Needed until disc ontinued starting 10/12/2021 End: 10-19-2021 Magnesium [Mass/volume] in Serum or Plasma Magnesium Lab Routine Every 6 Hours (Lab) for 7 Days starting 10/12/2021 until 10/19/2021, 3 completed [employer] Phone: Comment on above: Every 6 Hours (Lab) for 7 Days starting 10/12/2021 until 10/19/2021, 3 completed Nonrebreather mask oxygen Nonrebreather mask oxygen Respiratory Care Routine As directed - RT (PRN) until discontinued starting 10/12/2021 [employer] Phone: Comment on above: As directed - RT (SD N) until discontinued starting 10/12/2021 Oxygen therapy [[facility] [place] Initiate Oxygen Therapy Protocol Respiratory Care Routine As Needed until discontinued starting 10/12/2021 [employer] Phone: Comment on above: As Needed until disc ontinued starting 10/12/2021 Spirometry panel Incentive itz metry Respiratory Care Routine Every 2hr while awake until discontinued starting 10/12/2021 [employer] Phone: Comment on above: Every 2hr while awak e until discontinued starting 10/12/2021 End: 10-12-2021 Surgical Pathology Surgical Pathology Lab Routine One Time for 1 Occurrences starting 10/12/2021 until 10/12/2021 [employer] Phone: Comment on above: One Time for 1 Occur rences starting 10/12/2021 until 10/12/2021 End: 10-12-2021 SURGICAL PATHOLOGY REPORT SURGICAL PATHOLOGY REPORT Lab Routine Once for 1 Occurrences starting 10/12/2021 until 10/12/2021 [employer] Phone: Comment on above: Once for 1 Occurrenc es starting 10/12/2021 until 10/12/2021 End: 10-13-2021 SURGICAL PATHOLOGY REPORT SURGICAL PATHOLOGY REPORT Lab Routine Once for 1 Occurrences starting 10/13/2021 until 10/13/2021 [employer] Phone: Comment on above: Once for 1 Occurrenc es starting 10/13/2021 until 10/13/2021 Immunizations Immunization Date Immunization Notes Care Provider Fa cility 10-12-2021 diphtheria, tetanus toxoids and acellular pertussis vaccine, unspecified formulation Bryanna Barth ROADSIDE MECHANIC - CNM Work Phone: [employer] Phone: 10-12-2021 measles, mumps and rubella virus vaccine Bryanna Barth ROADSIDE MECHANIC - CNM Work Phone: [facility] Work Phone: Payers Date Payer Category Payer Unknown [id number] 2014 Unknown [id number] 1986 Unknown [id number] 2.16.8 [id number] 1986 Unknown [id number] 2.16.8 [id number] 1986 Unknown [id number] 2.16.8 [id number] 1986 Unknown [id number] 2.16.8 [id number] 1986 Unknown [id number] 2.16.8 40.1.134475.3.579.2.173 1986 Unknown [id number] 2.16.8 40.1.699978.3.579.2.173 1986 Unknown [id number] 2.16.8 40.1.512941.3.579.2.173 1986 Unknown [id number] 2.16.84 0.1.264119.3.579.2.593 1986 Unknown [id number] 2.16.84 0.1.598111.3.579.2.593 1986 Unknown [id number] 2.16.84 0.1.014059.3.579.2.1259 1986 Unknown [id number] 2.16.84 0.1.876515.3.579.2.1259 1986 Unknown [id number] 2.16.8 40.1.474591.3.579.2.1286 1986 Unknown [id number] 2.16.8 40.1.508979.3.579.2.1286 1986 Unknown [id number] 2.16.8 40.1.109495.3.579.2.1286 1986 Unknown [id number] 2.16.8 40.1.033685.3.579.2.1286 1986 Unknown [id number] 2.16.8 40.1.362565.3.579.2.1286 1986 Unknown [id number] 2.16.8 40.1.156818.3.579.2.1286 1986 Unknown [id number] 2.16.8 40.1.803700.3.579.2.1286 1986 Unknown [id number] 2.16.8 40.1.765372.3.579.2.1286 1986 Unknown [id number] 2.16.8 40.1.436876.3.579.2.1286 1986 Unknown [id number] 2.16.8 40.1.431571.3.579.2.1286 1986 Unknown [id number] 2.16.8 40.1.415285.3.579.2.1286 1959 Private Health Insurance [id number] Self-pay Self Pay [id number] Social History Date Type Detail Facility Start: 05-17-2015 End: 04-19-2021 Tobacco smoking status [facility] Never smoked tobacco [facility] Other Start: 04-19-2021 Tobacco use and exposure Smokeless tobacco non-user [employer] Phone: Start: 09-09-2021 End: 10-12-2021 Alcohol intake Ex-drinker (finding) [employer] Phone: Start: 01-31-2021 Repairogen [facility] Work Phone: Start: 1985 Sex Assigned At Not on file M [employer] Work Phone: Start: 09-13-2021 End: 10-12-2021 Exposure to SARS-CoV-2 (event) Not sure [facility] Sex Assigned At Sex Assigned At Bir th [facility] Other Start: 1985 Sex Assigned At Female F [facility] Clinical Notes 06-14-2021 to 12-20-2023 Note Date & Type Note Facility 12-20-2023 Note ID Cardiology - [facility] Subjective Solange Murphy is a 38 [...] hair Acne Antepartum hypertension BMI 50.0-59.9, adult ([facility]) Encounter for sterilization Gestational hypertension, third trimester [...] On 12/17/2023 she was admitted to the [facility] after sustaining right arm weakness, difficulty speaking and facial droop. The symptoms resolved within 10 to 15 minutes of onset. During the symptoms, she FaceTime her mother who is a nurse and explained to her what was happening and she was taken to the emergency room at the [facility] where she was admitted and investigation included [...] saline contrast injections show evidence of significant egmbi-sr-jtia shunt at the interatrial septal level at [...] (EMMA); Future Conge (more content not included)... 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) [facility] Other 10-03-2023 Evaluation note* Encounter Date Diagnosis [...] Treat underlying condition and insomnia should improve [facility] Other 02-22-2023 Evaluation note* Encounter Date Diagnosis Assessment Notes Treatment Notes Treatment Clinical Notes Aug, Pharyngitis due to Streptococcus species (ICD-10 - J02.0) Gargle w/ salt water, tylenol and rest [facility] Other 04-09-2022 History of Present illness Narrative* Dianne Dang APRN - CNM - 10/14/2021 8:56 AM EDT [...] Message received from ADELA Caceres who is supervisor irrigation today that my patient has arrived to the unitand she has elevated blood pressures. Hypertension protocol being started and Dr Panda would like to proceed with her repeat section soon. 0955 this write leaves my office and enroute to [place], [facility] Phone: [phone] 262-351303-19-2022 History of Present illness Narrative* Shanel Raymundo RN - 09/23/2021 3:40 PM EDT Pt here for scheduled NST. Pt states she is insulin controlled gestational diabetic and sees [facility] attir satellite office. Pt reports + movement today. Pt denies vaginal bleeding or leaking offluid. Pt states that she sometimes has back pain if she stands for too long, pt denies pain currently. Pt denies pain or burning when urinating. Pt denies headache or blurred vision. marker button given. [facility] Phone: [phone] Evaluation note* Encounter Date Diagnosis Assessment Notes [...] Patient care instructions given in writting by [facility] Care At Home document. [facility] Other Evaluation note* Diagnosis Diet controlled gestational diabetes mellitus (GDM) in third trimester [facility]: evaluation note* Diagnosis Diet controlled gestational diabetes mellitus (GDM) in third trimester documented in this encounter [employer] Phone: evalbbpmhw note* Diagnosis Diet controlled gestational diabetes mellitus (GDM) in third trimester documented in this encounter [employer] Phone: evaluation note* Diagnosis Diet controlled gestational diabetes mellitus (GDM) in third trimester documented in this encounter [employer] Phone: evaluation note* Diagnosis Abdominal pain- Primary Abdominal pain, unspecified site Born by section Hypertension affecting in first trimester Hypertension affecting in third trimester documented in this encounter [employer] Phone: evaltotfeb noteNo InformationNoAuctions by Wallace [employer] Other Evaluation note* Diagnosis Onset Date Resolution Status Anemia acute PFO (patent foramen ovale) a cute TIA (transient ischemic attack) acute Type 2 diabetes mellitus with hyperglycemia acute [facility] Work Phone: [employer] general Narrative - Reported* Type Description Date Medical History anxiety Surgical History back surgery Surgical History tonsillectomy Surgical History C section Surgical History PE tubes Surgical History adnoidectomy Hospitalization History child [facility] Other Hisvkrm general Narrative - Reported* Type Description Date [...] History child Hospitalization History SEE SURGICAL HX [facility] Other Hisgyhx general Narrative - Reported* Type Description Date [...] History child Hospitalization History SEE SURGICAL HX [facility] Other Hospital Discharge instructions* Attachments The following attachments cannot be sent through Care Everywhere. * Section: Post-op (Tongan) * (Tongan) * Video: Caring for Yourself After Delivery (Tongan) * : Exercises (Tongan) * Depression: (Tongan) * Parenting: Stress and Infants (Tongan) [facility] Work Phone: Summary Purpose Family History No [...] section and content) DATE CREATED AUTHOR 12/31/2017 [facility] DATE CREATED AUTHOR AUTHOR'S ORGANIZ ATION 05/15/2021 [facility] DATE CREATED AUTHOR AUTHOR'S ORGANIZ ATION 06/21/2021 [facility] DATE CREATED AUTHOR AUTHOR'S ORGANIZ ATION 09/27/[address] [facility] dical Specialist DATE CREATED AUTHOR AUTHOR'S ORGANIZ ATION 10/16/2021 [facility] DATE CREATED AUTHOR AUTHOR'S ORGANIZ ATION 08/28/2022 [facility] DATE CREATED AUTHOR AUTHOR'S ORGANIZ ATION 12/21/2023 [facility] DATE CREATED AUTHOR AUTHOR'S ORGANIZ ATION 01/30/[address] [facility] dical [facility] DATE CREATED AUTHOR AUTHOR'S ORGANIZ ATION 02/18/2024 [facility] DATE CREATED AUTHOR AUTHOR'S ORGANIZ ATION 02/26/2024 [facility] Reason for Visit (unrecogniz ed section and content) Reason Comments Non-stress Test Reason Comments Abdominal Pain Specialty Diagnoses / Procedures Referred By Leila t Referred To Contact Diagnoses Abdominal pain Hypertension affecting in first trimester Hypertension affecting in third trimester Bryanna Barth, ROADSIDE MECHANIC - CNM [address] [place] [address] [facility] [id number] [place] [address] Referral ID Status Reason Start Date Expiration Date Visits Re quested Visits Authorized 1 1 Care Teams (unrecognized sec tion and content) Transport Pilot Relationship Specialty Start Date End Date Edward Page, DO [address] [place] [address] PCP - General Internal Medicine 06/21/21 Transport Pilot Relationship Specialty Start Date End Date Edward Page, DO [address] [place] [address] PCP - General Internal Medicine 06/21/21 Transport Pilot Relationship Specialty Start Date End Date Edward Page DO [address] [place] [address] PCP - General Internal Medicine 06/21/21 Transport Pilot Relationship Specialty Start Date End Date Edward Page, DO [address] [place] [id number] PCP - General Internal Medicine 06/21/21 Transport Pilot Relationship Specialty Start Date End Date Edward Page, DO [address] [facility] [place] [id number] PCP - General Internal Medicine 06/21/21 Transport Pilot Relationship Specialty Start Date End Date Edward Page, DO [address] [place] [id number] PCP - General Internal Medicine 06/21/21 Team Status: Active Member Role Status Dates Edward Page DO Primary Care Provider Active Team Status: Active Member Role Status Dates Edward Page DO Primary Care Provider Active Start: December 17, 2023 Nathanael DO Remigio Attending Provider Active Start : December 17, [...] (Stopped - Provider: Ruben Mccabe APRN - EXECUTIVE COACH) docusate sodium (COLACE) capsule 100 mg 100 mg, Oral, 2 TIMES DAILY, First dose on Sat10/12/21 at 1345, Until Discontinued, Do not crush or break., 1410 (Given - Provider: Milla Davis, SHANON)2151 (Given - Provider: Lilo Kulkarni, RN) 0807 (Given - Provider: Nohemy Nuñez, SHANON)2047 (Given - Provider: Elif Prince, RN) 0930 (Given - Provider: Leda Glez, RN)2100 (Due) enoxaparin (LOVENOX) injection 60 mg [...] Glez, SHANON) 0151 (Given - Provider: Elif Prince, SHANON)1031 (Given - Provider: Leda Glez RN)1830 [...] Lilo Kulkarni RN - Comment: POCT 229) 2047 (Given - Provider: Elif Prince RN) 2100 [...] Denisha 10/12/21 at 1400, Last dose on [place] 10/15/21 at 0600 1409 (Given - Provider: [...] SHANON) 0930 (Given - Provider: Leda Glez, SHANON) [...] Reason: Other - Comment: IV removed)2100 (Due) rysfrsl-nyeabq-wmheb pertussis (BOOSTRIX) injection 0.5 mL 0.5 mL, [...] (NoRateChange - Provider: Ruben Mccabe APRN - EXECUTIVE COACH) lactated ringers infusion IntraVENous, at 50 mL/hr, CONTINUOUS, Starting on Denisha 10/12/21 at 1345, 1256 (Rate/Dose Change - Provider: Milla Davis RN)2150 (Rate/Dose Change - Provider: Lilo Kulkarni RN)2245 (Rate/Dose Change - Provider: Lilo Kulkarni RN) 0522 (Rate/Dose Change - Provider: Lilo Kulkarni RN) 1127 (Stopped - Provider: Leda Glez RN) magnesium sulfate (36192 mg/500mL infusion) (CANCELED) 2,000 mg/hr (50 mL/hr), [...] mg 1049 (New Bag - Provider: Milla Davis, SHANON)1101 (NoRateChange - Provider: Ruben Mccabe APRN - EXECUTIVE COACH) magnesium sulfate (43492 mg/500mL infusion) () 1,000 mg/hr (25 mL/hr), IntraVENous, CONTINUOUS, Starting on Sat10/12/21 at 2200, Until Sat10/13/21 at 1159, 1000 mg = 1 gram; 2000 mg = 2 grams; 20,000 mg = 20 grams 2149 (New Bag - Provider: Lilo Kulkarni, SHANON) 0521 (Rate/Dose Change - Provider: Lilo Kulkarni RN)0810 (New Bag - Provider: Nohemy Nuñez, SHANON)1102 (Stopped - Provider: Nohemy Nuñez RN) PRN [...] PRN, Dry Skin, nipple discomfort, Starting on [place] 10/12/21 at 1323, Post-op measles, mumps & [...] Nuñez, SHANON)2046 (Given - Provider: Elif Prince, RN) oxyCODONE-acetaminophen [...] SHANON)2046 (See Alternative - Provider: Elif Prince, SHANON) [...] 1503 (New Bag - Provider: Milla Davis, RN)2136 (Stopped - Provider: Lilo Kulkarni, RN) 1128 (Stopped - Provider: Leda Glez [...] Starting on Denisha 10/12/21 at 1340, Until 4/9/22 at 1317, Bleeding
For a total of [...] BE BASED ON THE PRIMARY CLINICAL RECORDS. [facility] [employer] provides no warranty or guarantee of the accuracy or completeness of information in this document.
[2024-03-07 07:12] LABS: Basophils Absolute Auto 0.1 10^3/uL (0.0-0.1); Basophils Percent Auto 1.2 % (0.2-2.0); Eosinophils Absolute Auto 0.1 10^3/uL (0.0-0.7); Hematocrit 31.5 % (36.0-48.0); Hemoglobin 9.6 g/dL (12.0-16.0); Immature Granulocytes Abs Auto 0.01 10^3/uL (0.00-0.03); Immature Granulocytes Pct Auto 0.2 % (0.0-0.5); Lymphocytes Absolute Auto 2.3 10^3/uL (1.2-3.8); Lymphocytes Percent Auto 46.3 % (20.5-60.0); Mean Corpuscular HGB Conc 30.5 g/dL (29.9-35.2); Mean Corpuscular Hemoglobin 22.2 pg (26.7-34.0); Mean Corpuscular Volume 72.7 fL (81.0-99.0); Mean Platelet Volume 9.9 fL (9.5-13.5); Monocytes Absolute Auto 0.4 10^3/uL (0.3-0.8); Monocytes Percent Auto 7.8 % (1.7-12.0); Neutrophils Absolute Auto 2.2 10^3/uL (1.4-6.5); Neutrophils Percent Auto 43.5 % (43.0-75.0); Platelet Count 273 10^3/uL (150-450); Red Blood Count 4.33 10^6/uL (4.20-5.40); Red Cell Distribution Width 16.1 % (11.0-15.0)
[2024-03-07 08:00] LABS: Anion Gap 11.2; Calcium 8.4 mg/dL (8.5-10.1); Carbon Dioxide 27.5 mmol/L (21.0-32.0); Chloride 107 mmol/L (98-107); Estimated GFR (African America >60 (>=60); Estimated GFR (Non-African Ame >60 (>=60); Glucose 91 mg/dL (74-106); Potassium 3.7 mmol/L (3.5-5.1); Sodium 142 mmol/L (136-145)
== END 2024-03-07 06:43 | disposition home or self-care (01) ==
PROVIDERS: PCP Internal Medicine
DX: Q21.12 Patent foramen ovale (principal)
CPT/HCPCS: 36415; 80048; 85025

== ENCOUNTER 2024-08-17 17:23 | Emergency (ER) | payer BC, SELFPAY ==
[2024-08-17 17:43] VITALS: BP 149/63; PULSE 59; TEMP 37.1; O2SAT 100; BMI 27.4
--- OUTSIDE RECORDS SUMMARY | 2024-08-17 17:57 | XMS_ITS | CCD ---
Author Organization [facility] CliniSyvt Care Team Providers Care Water Conservation Specialist Name Role Phone Bentley Amin Unavailable Unavailable Bentley Amin Unavailable Unavailable Camilo, Edward Unavailable Unavailable Ball Edward KULKARNI Primary Care Provider [phone] FLORO, DIANNE Admitting Unavailable FLORO, DIANNE Attending [...] Unavailable BALL, EDWARD E Primary Care Unavailable BRYCE HEALY Attending Unavailable BALL, EDWARD E Referring Unavailable BALL, EDWARD E Primary Care Unavailable YEISMAEL, MICK K Referring Unavailable BALL, EDWARD E Primary Care Unavailable Ball DO, Edward E Primary Care Provider MICK WREN Referring Unavailable BALL, EDWARD E Primary Care Unavailable ELAMIN, MOHAMED B Attending Unavailable YEISMAEL, MICK K Referring Unavailable BALL, EDWARD E Primary Care Unavailable ELAMIN, MOHAMED B Admitting Unavailable TAMIKA, P HUMERA Attending Unavailable BALL, EDWARD E Referring Unavailable BALL, EDWARD E Primary Care Unavailable TAMIKA, P HUMERA Admitting Unavailable TAMIKA, P HUMERA Attending Unavailable BALL, EDWARD E Primary Care Unavailable YENRRHODA, MICK K Attending Unavailable BALL, EDWARD E Referring Unavailable BALL, EDWARD E Primary Care Unavailable YENRICK, MICK K Referring Unavailable BALL, EDWARD E Primary Care Unavailable Unavailable Primary Care Provider Unavailabl e CONNIEO DIANNE L Attending Unavailable FLORO, DIANNE L Attending Unavailable FLORO, DIANNE L Attending Unavailable Allergies Allergy Classification Reported Allergen(s) Allergy Type Date of Onset Reaction(s) Facility (18 sources) Penicillins; Translations: [PENICILLINS] Propensity to adverse reactions to drug 03-13-20 17 [employer] (19 sources) Penicillin G; Translations: [PENICILLIN G] Drug Allergy 03-13-20 17 [employer] [facility] (3 sources) Penicillin Drug Allergy 03-16-20 14 Unknown [employer] Other (4 sources) Substance with penicillin structure and antibacterial mechanism of action (substance) Drug allergy 01-14-20 18 Unknown [employer] Other (3 sources) patient allergy list reviewed by nurse or physicia Propensity to adverse reactions 02-27-20 17 Comment:Done [employer] Other (3 sources) Allergies Reconciled Propensity to adverse reactions Unknown [employer] Other Medications Current Medications Medication Drug Class(es) [...] aspirin 81 mg delayed release oral tablet (15 sources) Platelet Aggregation Inhibitor, Nonsteroidal Anti-inflammatory Drug Start: 12-23-2023 Aspirin (Adult Lo w Dose Aspirin) 81 mg tablet,delayed release (DR/EC) Active 81 MG PO Daily December 23, 2023 12:00am Start: 06-15-2021 End: 10-14-2021 ASPIRIN LOW DOSE 81 MG chewa ble tablet azithromycin 250 mg oral tablet (3 sources) Macrolide Antimicrobial Start: 08-29-2022 Azithromycin 250 MG as directed Orally daily for 5 days Aug, Active buPROPion hydrochloride 100 mg oral tablet (19 sources) Aminoketone Start: 09-12-2023 take 100 mg by mouth twice daily Bupropion Hcl Active 100 MG PO Twice daily September 12, 2023 1:00am Start: 08-26-2023 End: 07-16-2024 buPROPion (Wellbutrin) 100 M G tablet Take 50 mg by mouth in the morning and 50 mg before bedtime. 08/26/2023 07/16/2024 Discontinued (Therapy completed) Start: 04-09-2023 take 1 tablet by cara th every twelve hours buPROPion HCl 100 MG 1 tablet Orally Twice a day Instruct patient to take bid for first 3 days Apr, Active take 1 tablet by cara th in the morning, then take 1 tablet by mouth at bedtime buPROPion (WELLBUTRIN) 75 mg tablet Take 1 tablet (75 mg total) by mouth in the morning and 1 tablet (75 mg total) before bedtime. Active take 1 tablet by cara th [...] 06-15-2021 Cholecalciferol (VITAMIN D3) 25 MCG TABS clopidogrel 75 mg oral tablet (7 sources) P2Y12 Platelet Inhibitor Start: 03-13-2024 take 1 tablet by mouth in the morning clopidogreL (PLAVIX) 75 mg tablet Take 1 tablet (75 mg total) by mouth in the morning. 30 tablet 6 03/13/2024 Active 1 ml diphenhydrAMINE hydrochloride 50 mg/ml cartridge [...] mg docusate sodium 50 mg / sennosides, jail 8.6 mg oral tablet (1 source) Start: 10-12-2021 sennosides-docusate sodium (SENOKOT-S) 8.6-50 MG tablet 1 tablet 0.6 ml enoxaparin sodium 100 mg/ml prefilled syringe (1 source) Low Molecular Weight Heparin Start: 10-13-2021 enoxaparin (LOVENOX) injection 60 mg escitalopram 20 mg oral tablet (12 sources) Serotonin Reuptake Inhibitor take 1 tablet by mouth every twenty-four hours Escitalopram Oxalate 20 MG 1 tablet Orally Once a day Active ferrous sulfate 325 mg oral tablet (4 sources) Start: 12-23-2023 take 325 mg by mouth twice daily Ferrous Sulfate Active 325 MG PO Twice daily December 23, 2023 12:00am take 1 tablet by mouth at mealti me ferrous sulfate 325 (65 Fe) MG tablet Take 65 mg by mouth in the morning. Take with meals. Active glucagon (rdna) 1 mg injection (1 source) Antihypoglycemic Agent Start: 10-12-2021 glucago n (rDNA) injection 1 mg 150 ml glucose 50 mg/ml injection (3 sources) Start: 10-12-2021 dextrose 5 % s olution Start: 10-12-2021 glucose (GLUTO SE) 40 % [...] Start: 10-12-2021 lansinoh lanol in ointment levonorgestrel 0.627048 mg/hr intrauterine system (8 sources) Progestin, Progestin-containing [...] Drug Class(es) Dates Sig (Normalized) Sig (Original) atorvastatin 20 mg oral tablet (4 sources) HMG-CoA Reductase Inhibitor Start: 12-18-2023 End: 07-16-2024 take 1 tablet by mouth in the morning atorvastatin (Lipitor) 20 MG tablet Take 20 mg by mouth in the morning. 12/18/2023 07/16/2024 Discontinued (Therapy completed) citric acid 66.8 mg/ml / sodium citrate [...] premix Start: 10-12-2021 End: 10-13-2021 magnesium sulfate (50137 mg/ 500mL infusion) 2 ml metoclopramide 5 [...] 09-12-2023 Chronic Cardiac and circulatory congenital anomalies (10 sources) Patent foramen ovale; Translations: [Patent foramen ovale] Onset: 02-18-2024 12-20-2023 Chronic Cardiac and circulatory congenital anomalies (3 sources) Personal history of (corrected) congenital malformations of heart and circulatory system; Translations: [H/O cardiac surgery] Onset: 03-23-2024 07-31-2024 Episodic Cardiac dysrhythmias (4 sources) Palpitations; Translations: [Palpitations] Onset: 12-26-2023 06-17-2024 Episodic Deficiency and other anemia (1 source) Anemia; Translations: [Anemia, unspecified] 12-21-2023 Episodic Deficiency and other anemia (1 source) Anemia, unspecified; Translations: [Anemia, unspecified] 12-23-2023 Episodic Diabetes mellitus with complications (9 sources) Type 2 diabetes mellitus; Translations: [Type 2 diabetes mellitus with hyperglycemia] 09-14-2023 Chronic Diabetes mellitus without complication (8 sources) Hyperglycemia, unspecified; Translations: [Hyperglycemia] Onset: 08-21-2022 Episodic Hypertension complicating ; childbirth and the [...] Obesity; Translations: [Obesity, unspecified] 09-16-2023 Chronic Other nutritional; endocrine; and metabolic disorders (5 sources) Body mass index 40+ - severely obese; Translations: [Body mass index (BMI) 50.0-59.9, adult] Onset: 07-18-2018 07-18-2018 Chronic Other skin disorders (2 sources) Epidermoid cyst; Translations: [Epidermal cyst] 07-16-2024 Episodic Other upper respiratory infections (10 sources) Acute upper respiratory infection, unspecified; Translations: [Acute pharyngitis, unspecified] Onset: 06-14-2021 Resolved: 06-14-2021 Episodic Residual codes; unclassified (4 sources) Tobacco use; Translations: [TOBACCO USE] Onset: 08-17-2022 Episodic Residual codes; unclassified (1 source) Pain, unspecified; Translations: [Pain, unspecified] Onset: 12-18-2023 Episodic Transient cerebral ischemia (9 sources) Transient cerebral ischemia; Translations: [Transient cerebral ischemic attack, unspecified] Onset: 12-26-2023 12-21-2023 Chronic Unclassified (5 sources) No additional problems on file Unclassified (1 source) Atrial septal defect, unspecified; Translations: [Atrial septal defect, unspecified] Onset: 12-20-2023 Unclassified (1 source) PFO Onset: 03-13-2024 Past or Other Problems Problem Classification Problem Date Documented Da te Episodic/Chronic Contraceptive and procreative management (5 sources) Patient encounter status; Translations: [Encounter for sterilization] Onset: 07-15-2018 07-15-2018 Episodic Diabetes or abnormal glucose tolerance complicating ; childbirth; or the puerperium (9 sources) Gestational diabetes mellitus; Translations: [Gestational diabetes mellitus in , diet controlled] Onset: 05-19-2018 Episodic Hypertension complicating ; childbirth and the puerperium (5 sources) Hypertension AND/OR vomiting complicating childbirth AND/OR puerperium; Translations: [Gestational [-induced] hypertension without significant proteinuria, third trimester] Onset: 07-22-2018 07-22-2018 Episodic Immunizations and screening for infectious disease (1 source) Contact with and (suspected) exposure to other viral communicable diseases Onset: 06-14-2021 Resolved: 06-14-2021 Episodic Other and delivery including normal (5 sources) Intrauterine ; Translations: [Encounter for supervision of normal , unspecified, unspecified trimester] Onset: 07-29-2018 07-29-2018 Episodic Other skin disorders (5 sources) Acne; Translations: [Acne, unspecified] Onset: 03-13-2017 03-13-2017 Episodic Other skin disorders (5 sources) Abnormal hair finding; Translations: [Other hair color and hair shaft abnormalities] Onset: 03-13-2017 03-13-2017 Episodic Unclassified (1 source) Atrial septal defect, unspecified; Translations: [Atrial septal defect, unspecified] Onset: 12-20-2023 Results Test Name Value Interpretation Reference Range Facility POCT EKGon 07-31-2024 [facility] ACT Diatomaceous earth induc ed (Bld)on 03-13-2024 [facility] CLOT TIME LR 298 sec High 89-169 [facility] Comment on above: Performed By: #### [id number] #### [facility] ([id number]) [address] [place] [address] Office Visiton 12-20-2023 Follow-up visit [id number] LucasShamir 1985 F Date Provider Department Center 12/20/2023 Sunil[facility]RAFAEL [facility] Family History Problem Relation Age of Onset Diabetes Mother Hypertension Father Atrial fibrillation Brother Lung cancer Paternal Grandfather Family Status - Relation Status Age at Mother Father Brother Maternal Grandmother Alive Paternal Grandfather Level of Service:52628 HI PHYS/QHP TELEPHONE EVALUATION 21-30 MIN Normal [facility] Basophils Auto (Bld) [#/Vol] on 12-18-2023 Basophils (Bld) [#/Vol] 0.0 10 3/uL 0.0-0.1 [facility] Basophils/100 WBC Auto (Bld) on 12-18-2023 Basophils/100 WBC (Bld) 0.7 % 0.2-2.0 [facility] Eosinophils/100 WBC Auto (Bl d)on 12-18-2023 Eosinophils/100 WBC (Bld) 1.5 % 0.9-7.0 [facility] Erythrocyte distribution wid th Auto (RBC) [Ratio]on 12-18-2023 Erythrocyte distribution width (RBC) [Ratio] 18.0 % 11.0-15.0 [facility] Estimated glomerular filtrat ion rate (GFR) non- Americanon 12-18-2023 GFR/1.73 sq M.predicted among non-blacks MDRD (S/P/Bld) [Vol rate/Area] mL/min/{1.73_m2} >=60 [facility] Globulin Calc (S) [Mass/Vol] on 12-18-2023 Globulin (S) [Mass/Vol] 3.1 g/dL [facility] Hematocrit Auto (Bld) [Volum e fraction]on 12-18-2023 Hematocrit (Bld) [Volume fraction] 27.9 % 36.0-48.0 [facility] Hemoglobin [Mass/volume] in Bloodon 12-18-2023 Hemoglobin (Bld) [Mass/Vol] 8.2 g/dL 12.0-16.0 [facility] Laboratory - Chemistry and C hemistry - challengeon 12-18-2023 Albumin [Mass/Vol] 2.8 g/dL 3.4-5.0 [facility] ALP [Catalytic activity/Vol] 67 U/L 46-116 [facility] ALT [Catalytic activity/Vol] 14 U/L 14-59 [facility] AST [Catalytic activity/Vol] 8 U/L 15-37 [facility] Bilirubin [Mass/Vol] 0.4 mg/dL 0.2-1.0 [facility] Calcium [Mass/Vol] 7.8 mg/dL 8.5-10.1 [facility] Chloride [Moles/Vol] 108 mmol/L 98-107 [facility] CO2 [Moles/Vol] 25.7 mmol/L 21.0-32.0 [facility] Creatinine [Mass/Vol] 0.60 mg/dL 0.55-1.02 [facility] GFR/1.73 sq M.predicted MDRD (S/P/Bld) [Vol rate/Area] mL/min/{1.73_m2} >=60 [facility] Glucose [Mass/Vol] 75 mg/dL 74-106 [facility] Potassium [Moles/Vol] 3.7 mmol/L 3.5-5.1 [facility] Protein [Mass/Vol] 5.9 g/dL 6.4-8.2 [facility] Sodium [Moles/Vol] 139 mmol/L 136-145 [facility] Urea nitrogen [Mass/Vol] 9.0 mg/dL 7.0-18.0 [facility] Urea nitrogen/Creatinine [Mass ratio] 15.0 mg/mg [facility] Laboratory - Hematology and Cell countson 12-18-2023 Immature granulocytes/100 WBC (Bld) 0.2 % 0.0-0.5 [facility] Leukocytes [#/volume] correc alfredito for nucleated erythrocytes in Blood by Automated counon 12-18-2023 WBC corrected for nucl RBC Auto (Bld) [#/Vol] 5.9 10 3/uL 4.0-11.0 [facility] Lymphocytes Auto (Bld) [#/Vo l]on 12-18-2023 Lymphocytes (Bld) [#/Vol] 2.4 10 3/uL 1.2-3.8 [facility] Lymphocytes/100 WBC Auto (Bl d)on 12-18-2023 Lymphocytes/100 WBC (Bld) 41.3 % 20.5-60.0 [facility] MCH Auto (RBC) [Entitic mass ]on 12-18-2023 MCH (RBC) [Entitic mass] 21.0 pg 26.7-34.0 [facility] MCHC Auto (RBC) [Mass/Vol]on 12-18-2023 MCHC (RBC) [Mass/Vol] 29.4 g/dL 29.9-35.2 [facility] MCV Auto (RBC) [Entitic vol] on 12-18-2023 MCV (RBC) [Entitic vol] 71.5 fL 81.0-99.0 [facility] Monocytes Auto (Bld) [#/Vol] on 12-18-2023 Monocytes (Bld) [#/Vol] 0.4 10 3/uL 0.3-0.8 [facility] Monocytes/100 WBC Auto (Bld) on 12-18-2023 Monocytes/100 WBC (Bld) 6.6 % 1.7-12.0 [facility] Neutrophils Auto (Bld) [#/Vo l]on 12-18-2023 Neutrophils (Bld) [#/Vol] 2.9 10 3/uL 1.4-6.5 [facility] Neutrophils/100 WBC Auto (Bl d)on 12-18-2023 Neutrophils/100 WBC (Bld) 49.7 % 43.0-75.0 [facility] No Panel Informationon 12-17 Eosinophils # (Auto) 0.1 10 3/uL 0.0-0.7 [facility] Immature Granulocyte # (Auto) 0.01 10 3/uL 0.00-0.03 [facility] Platelet mean volume Auto (B ld) [Entitic vol]on 12-18-2023 Platelet mean volume (Bld) [Entitic vol] 10.4 fL 9.5-13.5 [facility] Platelets Auto (Bld) [#/Vol] on 12-18-2023 Platelets (Bld) [#/Vol] 247 10 3/uL 150-450 [facility] RBC Auto (Bld) [#/Vol]on RBC (Bld) [#/Vol] 3.90 10 6/uL 4.20-5.40 [facility] Serum or plasma albumin/glob ulin mass ratioon 12-18-2023 Albumin/Globulin [Mass ratio] 0.9 {ratio} [facility] Serum or plasma anion gap de terminationon 12-18-2023 Anion gap [Moles/Vol] 9.0 mmol/L [facility] Activated partial thrombopla stin time (aPTT) in platelet poor plasma by coagulation aon 12-17-2023 aPTT Coag (PPP) [Time] 26.5 s 22.3-36.2 [facility] Basophils Auto (Bld) [#/Vol] on 12-17-2023 Basophils (Bld) [#/Vol] 0.0 10 3/uL 0.0-0.1 [facility] Basophils/100 WBC Auto (Bld) on 12-17-2023 Basophils/100 WBC (Bld) 0.7 % 0.2-2.0 [facility] Cholesterol in LDL Calc [Mas s/Vol]on 12-17-2023 Cholesterol in LDL [Mass/Vol] 64.4 mg/dL [facility] Comment on above: <100 mg/dl [id number] 0-129 mg/dl NEAR OR ABOVE [id number] mg/dl BORDERLINE [id number] mg/dl HIGH>190 mg/dl VERY HIGH Cholesterol in VLDL Calc [Ma ss/Vol]on 12-17-2023 Cholesterol in VLDL [Mass/Vol] 10.6 mg/dL [facility] Eosinophils/100 WBC Auto (Bl d)on 12-17-2023 Eosinophils/100 WBC (Bld) 1.5 % 0.9-7.0 [facility] Erythrocyte distribution wid th Auto (RBC) [Ratio]on 12-17-2023 Erythrocyte distribution width (RBC) [Ratio] 17.8 % 11.0-15.0 [facility] Estimated glomerular filtrat ion rate (GFR) non- Americanon 12-17-2023 GFR/1.73 sq M.predicted among non-blacks MDRD (S/P/Bld) [Vol rate/Area] mL/min/{1.73_m2} >=60 [facility] Globulin Calc (S) [Mass/Vol] on 12-17-2023 Globulin (S) [Mass/Vol] 3.6 g/dL [facility] Glucose mean value [Mass/vol ume] in Blood Estimated from glycated hemoglobinon 12-17-2023 Average glucose Estimated from glycated hemoglobin (Bld) [Mass/Vol] 114 mg/dL [facility] Hematocrit Auto (Bld) [Volum e fraction]on 12-17-2023 Hematocrit (Bld) [Volume fraction] 31.4 % 36.0-48.0 [facility] Hemoglobin [Mass/volume] in Bloodon 12-17-2023 Hemoglobin (Bld) [Mass/Vol] 9.2 g/dL 12.0-16.0 [facility] INR in Platelet poor plasma by Coagulation assayon 12-17-2023 INR Coag (PPP) [Relative time] 1.07 {INR} [facility] Comment on above: DESIRED INR:2.0-3.0 CONDITIONS NOT LISTED BELOW2.5-3.5 FOR PROSTHETIC HEART VALVE REPLACEMENT2.5-3.5 RECURRENT THROMBOSIS Iron binding capacity [Mass/ volume] in Serum or Plasmaon 12-17-2023 Iron binding capacity [Mass/Vol] 443.0 ug/dL 250.0-450. 0 [facility] Iron saturation [Mass Fracti on] in Serum or Plasmaon 12-17-2023 Iron saturation [Mass fraction] 3.6 % [facility] Laboratory - Chemistry and C hemistry - challengeon 12-17-2023 Albumin [Mass/Vol] 3.3 g/dL 3.4-5.0 [facility] ALP [Catalytic activity/Vol] 79 U/L 46-116 [facility] ALT [Catalytic activity/Vol] 17 U/L 14-59 [facility] AST [Catalytic activity/Vol] 16 U/L 15-37 [facility] Bilirubin [Mass/Vol] 0.6 mg/dL 0.2-1.0 [facility] Calcium [Mass/Vol] 8.1 mg/dL 8.5-10.1 [facility] Chloride [Moles/Vol] 105 mmol/L 98-107 [facility] Cholesterol [Mass/Vol] 125 mg/dL <=200 [facility] Cholesterol in HDL [Mass/Vol] 50 mg/dL 40-60 [facility] Comment on above: > or =60 mg/dl - LOW CARDIOVASCULAR RISK<40 mg/dl - HIGH CARDIOVASCULAR RISK CO2 [Moles/Vol] 27.0 mmol/L 21.0-32.0 [facility] Cobalamin (Vitamin B12) [Mass/Vol] 209.0 pg/mL 193.0-986. 0 [facility] Creatinine [Mass/Vol] 0.70 mg/dL 0.55-1.02 [facility] Ferritin [Mass/Vol] 6.0 ng/mL 8.0-252.0 [facility] GFR/1.73 sq M.predicted MDRD (S/P/Bld) [Vol rate/Area] mL/min/{1.73_m2} >=60 [facility] Glucose [Mass/Vol] 94 mg/dL 74-106 [facility] Iron [Mass/Vol] 16.0 ug/dL 50.0-170.0 [facility] Magnesium [Mass/Vol] 2.4 mg/dL 1.8-2.4 [facility] Potassium [Moles/Vol] 3.5 mmol/L 3.5-5.1 [facility] Protein [Mass/Vol] 6.9 g/dL 6.4-8.2 [facility] Sodium [Moles/Vol] 141 mmol/L 136-145 [facility] Triglyceride [Mass/Vol] 53 mg/dL <=150 [facility] TSH Qn 1.336 m[IU]/L 0.358-3.[address] [facility] Urea nitrogen [Mass/Vol] 10.0 mg/dL 7.0-18.0 [facility] Urea nitrogen/Creatinine [Mass ratio] 14.3 mg/mg [facility] Laboratory - Hematology and Cell countson 12-17-2023 HbA1c (Bld) [Mass fraction] 5.6 % 4.5-6.2 [facility] Comment on above: ADA RECOMMENDED LIMI T 4.0 - 6.0ADA THERAPEUTIC TARGET < 7.0ACTION SUGGESTED> 7.0 Immature granulocytes/100 WBC (Bld) 0.2 % 0.0-0.5 [facility] Leukocytes [#/volume] correc alfredito for nucleated erythrocytes in Blood by Automated counon 12-17-2023 WBC corrected for nucl RBC Auto (Bld) [#/Vol] 5.5 10 3/uL 4.0-11.0 [facility] Lymphocytes Auto (Bld) [#/Vo l]on 12-17-2023 Lymphocytes (Bld) [#/Vol] 2.5 10 3/uL 1.2-3.8 [facility] Lymphocytes/100 WBC Auto (Bl d)on 12-17-2023 Lymphocytes/100 WBC (Bld) 46.2 % 20.5-60.0 [facility] MCH Auto (RBC) [Entitic mass ]on 12-17-2023 MCH (RBC) [Entitic mass] 20.9 pg 26.7-34.0 [facility] MCHC Auto (RBC) [Mass/Vol]on 12-17-2023 MCHC (RBC) [Mass/Vol] 29.3 g/dL 29.9-35.2 [facility] MCV Auto (RBC) [Entitic vol] on 12-17-2023 MCV (RBC) [Entitic vol] 71.4 fL 81.0-99.0 [facility] Monocytes Auto (Bld) [#/Vol] on 12-17-2023 Monocytes (Bld) [#/Vol] 0.4 10 3/uL 0.3-0.8 [facility] Monocytes/100 WBC Auto (Bld) on 12-17-2023 Monocytes/100 WBC (Bld) 6.6 % 1.7-12.0 [facility] Neutrophils Auto (Bld) [#/Vo l]on 12-17-2023 Neutrophils (Bld) [#/Vol] 2.4 10 3/uL 1.4-6.5 [facility] Neutrophils/100 WBC Auto (Bl d)on 12-17-2023 Neutrophils/100 WBC (Bld) 44.8 % 43.0-75.0 [facility] No Panel Informationon 12-16 Eosinophils # (Auto) 0.1 10 3/uL 0.0-0.7 [facility] Folate 12.40 ng/mL 8.60-58.90 [facility] Immature Granulocyte # (Auto) 0.01 10 3/uL 0.00-0.03 [facility] Troponin I High Sensitivity 6.3 pg/mL 4.0-51.3 [facility] Comment on above: CUT-OFF POINTS HAVE BEEN ESTABLISHED BASED ON THE FOURTHIVERSAL DEFINITION OF MYOCARDIAL INFARCTION. THE UPPERREFERENCE LIMIT [...] volume (Bld) [Entitic vol] 10.1 fL 9.5-13.5 [facility] Platelets Auto (Bld) [#/Vol] on 12-17-2023 Platelets (Bld) [#/Vol] 283 10 3/uL 150-450 [facility] Prothrombin time (PT)on 12-06 PT Coag (PPP) [Time] 11.3 s 9.0-11.6 [facility] RBC Auto (Bld) [#/Vol]on RBC (Bld) [#/Vol] 4.40 10 6/uL 4.20-5.40 [facility] Reticulocytes/100 RBC Auto ( Bld)on 12-17-2023 Reticulocytes/100 RBC (Bld) 0.95 % 0.60-3.10 [facility] Serum or plasma albumin/glob ulin mass ratioon 12-17-2023 Albumin/Globulin [Mass ratio] 0.9 {ratio} [facility] Serum or plasma anion gap de terminationon 12-17-2023 Anion gap [Moles/Vol] 12.5 mmol/L [facility] Serum or plasma total choles terol/high density lipoprotein (HDL) cholesterol mass vasiliy 12-17-2023 Cholesterol.total/C holesterol in HDL [Mass ratio] 2.5 {ratio} [facility] Comment on above: 3.3 - 4.4 LOW RISK4. 4 - 7.1 AVERAGE RISK7.1 - 11.0 MODERATE RISK>11.0 HIGH RISK NICOTINE METABOLITESon 08-27 Cotinine <1.0 Normal [facility] Comment on above: Result Comment: This test was developed and its performance characteristics determined by [facility]. It has not been cleared or approved by the Food and Drug Administration. Cotinine levels greater than 20.0 are consistent with the use of tobacco or tobacco cessation products. Performed By: #### N ICTBLD #### [facility] [address] [place] [address] Dr. Malcolm Gil Nicotine <1.0 Normal [facility] Comment on above: Result Comment: This test was developed and its performance characteristics determined by [facility]. It has not been cleared or approved by the Food and Drug Administration. Nicotine levels greater than 2.0 are consistent with the use of tobacco or tobacco cessation products. Performed By: #### N ICTBLD #### [facility] [address] [place] [address] Dr. Malcolm Gil GLYCOHEMOGLOBIN A1Con 2022 ADA RECOMMENDATION SEE BELOW Normal [facility] Comment on above: Result Comment: ADA RECOMMENDED LIMIT 4.0 - 6.0 ADA THERAPEUTIC TARGET < 7.0 ACTION SUGGESTED > 7.0 Performed By: #### A 1C #### [facility] [address] [place] [address] Dr. Malcolm Gil Glucose [Mass/Vol] 163 mg/dL Normal [facility] Comment on above: Performed By: #### A 1C #### [facility] [address] [place] [address] Dr. Malcolm Gil HbA1c (Bld) [Mass fraction] 7.3 % Critically high 4.5-6.2 [facility] Comment on above: Performed By: #### A 1C #### [facility] [address] [place], [place] [address] Dr. Malcolm Gil Glucose, Whole Bloodon 10-14 Glucose [Mass/Vol] 85 mg/dL 74 - 100 mg/dL [facility] Glucose, Whole Bloodon 10-13 Glucose [Mass/Vol] 161 mg/dL High 74 - 100 mg/dL [facility] Interpretation and review of laboratory results Abnormal [facility] Glucose [Mass/Vol] 168 mg/dL High 74 - 100 mg/dL [facility] Interpretation and review of laboratory results Abnormal [facility] Glucose [Mass/Vol] 136 mg/dL High 74 - 100 mg/dL [facility] Interpretation and review of laboratory results Abnormal [facility] Glucose [Mass/Vol] 137 mg/dL High 74 - 100 mg/dL [facility] Interpretation and review of laboratory results Abnormal [facility] Hemoglobinon 10-13-2021 Hemoglobin (Bld) [Mass/Vol] 10.1 g/dL Low 11.9-15.1 [facility] Comment on above: Performed By: #### U RTPRT #### [facility] [address] [place] [address] [employer] Operator: Morro Hale MD Hemoglobin.gastroin testinal spec 1 Ql (Stl) 10.1 g/dL Low 11.9 - 15.1 g/dL [facility] Interpretation and review of laboratory results Abnormal [facility] Hemoglobin A1Con 10-13-2021 Glucose [Mass/Vol] 143 mg/dL Normal [facility] Comment on above: Result Comment: The ADA and AACC recommend providing the estimated average glucose result to permit better patient understanding of their HBA1c result. Performed By: #### U RTPRT #### [facility] [address] [place] [address] [employer] Operator: Morro Hale MD HbA1c (Bld) [Mass fraction] 6.6 % High 4.0-6.0 [facility] Comment on above: Performed By: #### U RTPRT #### [facility] [address] [place] [address] [employer] Operator: Morro Hale MD Hemoglobin A1con 10-13-2021 Glucose [Mass/Vol] 143 mg/dL [facility] Comment on above: The ADA and AACC rec ommend providing the estimated average glucose result to permit better patient understanding of their HBA1c result. HbA1c (Bld) [Mass fraction] 6.6 % High 4.0 - 6.0 % [facility] Interpretation and review of laboratory results Abnormal [facility] Magnesiumon 10-13-2021 Magnesium [Mass/Vol] 4.7 mg/dL Critically high 1.6-2.6 [facility] Comment on above: Performed By: #### U RTPRT #### [facility] [address] [place] [address] [employer] Operator: Morro Hale MD Interpretation and review of laboratory results Abnormal [facility] Magnesium [Mass/Vol] 4.7 mg/dL Critically high 1.6 - 2.6 mg/dL [facility] Magnesium [Mass/Vol] 5.3 mg/dL Critically high 1.6-2.6 [facility] Comment on above: Performed By: #### M G #### [facility] [address] [place] [address] [employer] Operator: Morro Hale MD Interpretation and review of laboratory results Abnormal [facility] Magnesium [Mass/Vol] 5.3 mg/dL Critically high 1.6 - 2.6 mg/dL [facility] Magnesium [Mass/Vol] 4.1 mg/dL Critically high 1.6-2.6 [facility] Comment on above: Performed By: #### M G #### [facility] [address] [place] [address] [employer] Operator: Morro Hale MD APTTon 10-12-2021 aPTT Coag (Bld) [Time] 23.9 s Low 26.8-34.8 [facility] Comment on above: Result Comment: IV Heparin Therapy Range: 62.0-94.0 Performed By: #### U RTPRT #### [facility] [address] [place] [address] [employer] Operator: Morro Hale MD aPTT Coag (Bld) [Time] 23.9 s Low [facility] Comment on above: IV Heparin Therapy Range: 62.0-94.0 Interpretation and review of laboratory results Abnormal [facility] CBC with Auto Differentialon 10-12-2021 Absolute Eos # 0.11 [facility] th Absolute Immature Granulocyte 0.07 [facility] Absolute Lymph # 2.20 [facility] He alth Absolute Independence # 0.53 [facility] Basophils (Bld) [#/Vol] 0.04 10*3/uL [facility] Basophils/100 WBC (Bld) 0 % 0 - 2 % [facility] Eosinophils/100 WBC (Bld) 1 % 1 - 4 % [facility] Hematocrit (Bld) [Volume fraction] 34.6 % Low 36.3 - 47.1 % [facility] Hemoglobin.gastroin testinal spec 1 Ql (Stl) 11.2 g/dL Low 11.9 - 15.1 g/dL [facility] Immature granulocytes/100 WBC (Bld) 1 % High 0 [facility] Interpretation and review of laboratory results Abnormal [facility] Lymphocytes/100 WBC (Bld) 23 % Low 24 - 43 % [facility] MCH (RBC) [Entitic mass] 27.1 pg 25.2 - 33.5 pg [facility] MCHC (RBC) [Mass/Vol] 32.4 g/dL 28.4 - 34.8 g/dL [facility] MCV (RBC) [Entitic vol] 83.6 fL 82.6 - 102.9 fL [facility] Monocytes/100 WBC (Bld) 6 % 3 - 12 % [facility] NRBC Automated 0.0 0.0 per 100 WBC [facility] Platelet distribution width (Bld) [Ratio] 14.6 % High 11.8 - 14.4 % [facility] Platelet mean volume (Bld) [Entitic vol] 10.6 fL 8.1 - 13.5 fL [facility] Platelets (Bld) [#/Vol] 224 10*3/uL [facility] RBC (Bld) [#/Vol] 4.14 10*6/uL 3.95 - 5.11 m/uL [facility] Segmented neutrophils/100 WBC (Bld) 69 % High 36 - 65 % [facility] Segs Absolute 6.68 [facility] h WBC (Bld) [#/Vol] 9.6 10*3/uL [facility] CBC with Diffon 10-12-2021 Abs. Basophil 0.04 k/uL Normal 0.00-0.20 [facility] Comment on above: Performed By: #### U RTPRT #### [facility] [address] [place] [address] [place] [id number] [employer] Operator: Morro Hale MD Abs.Imm.Granulocyte 0.07 k/uL Normal 0.00-0.30 [facility] Comment on above: Performed By: #### U RTPRT #### [facility] [address] [place] [address] Dr. [place], [place] [address] [employer] Operator: Morro Hale MD Abs.Neutrophil (Seg) 6.68 k/uL Normal 1.50-8.10 [facility] Comment on above: Performed By: #### U RTPRT #### [address] [place], [facility]83 [employer] Operator: Morro Hale MD Basophils/100 WBC (Bld) 0 % Normal 0-2 [facility] Comment on above: Performed By: #### U RTPRT #### [facility] [address] [place] [address] Dr. [place], [facility]83 [employer] Operator: Morro Hale MD Eosinophils (Bld) [#/Vol] 0.11 10*3/uL Normal 0.00-0.44 [facility] Comment on above: Performed By: #### U RTPRT #### [facility] [address] [place] [address] [place] [address] [employer] Operator: Morro Hale MD Eosinophils/100 WBC (Bld) 1 % Normal 1-4 [facility] Comment on above: Performed By: #### U RTPRT #### [facility] [address] [place] [address] Dr. [place], [place] [id number] [employer] Operator: Morro Hale MD Erythrocyte distribution width (RBC) [Ratio] 14.6 % High 11.8-14.4 [facility] Comment on above: Performed By: #### U RTPRT #### [facility] [address] [place] [address] Dr. [place], [place] [id number] [employer] Operator: Morro Hale MD Hematocrit (Bld) [Volume fraction] 34.6 % Low 36.3-47.1 [facility] Comment on above: Performed By: #### U RTPRT #### [address] [place], [place] [id number] [employer] Operator: Morro Hale MD Hemoglobin (Bld) [Mass/Vol] 11.2 g/dL Low 11.9-15.1 [facility] Comment on above: Performed By: #### U RTPRT #### [address] [place], [place] [id number] [employer] Operator: Morro Hale MD Immature granulocytes/100 WBC (Bld) 1 % High 0 [facility] Comment on above: Performed By: #### U RTPRT #### [facility] [address] [place] [address] Dr. [place], [place] [id number] [employer] Operator: Morro Hale MD Lymphocytes (Bld) [#/Vol] 2.20 10*3/uL Normal 1.10-3.70 [facility] Comment on above: Performed By: #### U RTPRT #### [address] [place], [place] 6359683 [employer] Operator: Morro Hale MD Lymphocytes/100 WBC (Bld) 23 % Low 24-43 [facility] Comment on above: Performed By: #### U RTPRT #### [facility] [address] [place], [place] 9619883 [employer] Operator: Morro Hale MD MCH (RBC) [Entitic mass] 27.1 pg Normal 25.2-33.5 [facility] Comment on above: Performed By: #### U RTPRT #### [facility] [address] [place], [facility]83 [employer] Operator: Morro Hale MD MCHC (RBC) [Mass/Vol] 32.4 g/dL Normal 28.4-34.8 [facility] Comment on above: Performed By: #### U RTPRT #### [address] [place], [place] [id number] [employer] Operator: Morro Hale MD MCV (RBC) [Entitic vol] 83.6 fL Normal 82.6-102.9 [facility] Comment on above: Performed By: #### U RTPRT #### [address] [place], [place] 9693683 [employer] Operator: Morro Hale MD Monocytes (Bld) [#/Vol] 0.53 10*3/uL Normal 0.10-1.20 [facility] Comment on above: Performed By: #### U RTPRT #### [facility] [address] [place] [address] Dr. [place], [facility]83 [employer] Operator: Morro Hale MD Monocytes/100 WBC (Bld) 6 % Normal 3-12 [facility] Comment on above: Performed By: #### U RTPRT #### [facility] [address] [place], [place] [phone] [employer] Operator: Morro Hale MD Neutrophil (Seg) 69 % High 36-65 [facility] Comment on above: Performed By: #### U RTPRT #### [facility] [address] [place], [place] 4071983 [employer] Operator: Morro Hale MD NRBC Automated 0.0 per 100 WBC Normal 0.0 [facility] Comment on above: Performed By: #### U RTPRT #### [facility] [address] [place] [id number] [employer] Operator: Morro Hale MD Platelet mean volume (Bld) [Entitic vol] 10.6 fL Normal 8.1-13.5 [facility] Comment on above: Performed By: #### U RTPRT #### [facility] [address] [place], [place] 7397183 [employer] Operator: Morro Hale MD Platelets (Bld) [#/Vol] 224 10*3/uL Normal 138-453 [facility] Comment on above: Performed By: #### U RTPRT #### [facility] [address] [place], [place] 6095483 [employer] Operator: Morro Hale MD RBC (Bld) [#/Vol] 4.14 10*6/uL Normal 3.95-5.11 [facility] Comment on above: Performed By: #### U RTPRT #### [facility] [address] [place] [address] [employer] Operator: Morro Hale MD WBC (Bld) [#/Vol] 9.6 10*3/uL Normal 3.5-11.3 [facility] Comment on above: Performed By: #### U RTPRT #### [facility] [address] [place] [address] [employer] Operator: Morro Hale MD Comp Metabolic Profon 2021 (cont.) Normal [facility] Comment on above: Result Comment: Aver age GFR for 30-39 years old: 107 mL/min/1.73sq m Chronic Kidney Disease: <60 mL/min/1.73sq m Kidney failure: <15 mL/min/1.73sq m eGFR calculated using average adult body mass. Additional eGFR calculator available at: http://www.[employer]/multiple_crcl_2012.htm Performed By: #### U RTPRT #### [facility] [address] [place], [place] 4753583 [employer] Operator: Morro Hale MD Albumin [Mass/Vol] 3.3 g/dL Low 3.5-5.2 [facility] Comment on above: Performed By: #### U RTPRT #### [facility] [address] [place], [place] 6065383 [employer] Operator: Morro Hale MD Albumin/Glob Ratio 1.2 Normal 1.0-2.5 [facility] Comment on above: Performed By: #### U RTPRT #### [facility] [address] [place], [place] 4463183 [employer] Operator: Morro Hale MD Alkaline Phos 112 U/L High 35-104 [facility] Comment on above: Performed By: #### U RTPRT #### [facility] [address] [place], [place] 1351883 [employer] Operator: Morro Hale MD ALT [Catalytic activity/Vol] 11 U/L Normal 5-33 [facility] Comment on above: Performed By: #### U RTPRT #### [facility] [address] [place], [place] 5493883 [employer] Operator: Morro Hale MD Anion gap [Moles/Vol] 11 mmol/L Normal 9-17 [facility] Comment on above: Performed By: #### U RTPRT #### [facility] [address] [place], [place] 4638083 [employer] Operator: Morro Hale MD AST [Catalytic activity/Vol] 14 U/L Normal <32 [facility] Comment on above: Performed By: #### U RTPRT #### [facility] [address] [place], [place] 4651683 [employer] Operator: Morro Hale MD Bilirubin [Mass/Vol] 0.27 mg/dL Low 0.3-1.2 [facility] Comment on above: Performed By: #### U RTPRT #### [facility] [address] [place], [place] 1767683 [employer] Operator: Morro Hale MD BUN/CRE Ratio 19 Normal 9-20 [facility] Comment on above: Performed By: #### U RTPRT #### [facility] [address] [place], [place] 4380483 [employer] Operator: Morro Hale MD Calcium [Mass/Vol] 9.2 mg/dL Normal 8.6-10.4 [facility] Comment on above: Performed By: #### U RTPRT #### [facility] [address] [place], [place] 3072783 [employer] Operator: Morro Hale MD Chloride [Moles/Vol] 98 mmol/L Normal 98-107 [facility] Comment on above: Performed By: #### U RTPRT #### [facility] [address] [place] [address] Dr. [place], [place] [id number] [employer] Operator: Morro Hale MD CO2 [Moles/Vol] 21 mmol/L Normal 20-31 [facility] Comment on above: Performed By: #### U RTPRT #### [facility] [address] [place], [place] 7600983 [employer] Operator: Morro Hale MD Creatinine [Mass/Vol] 0.58 mg/dL Normal 0.50-0.90 [facility] Comment on above: Performed By: #### U RTPRT #### [facility] [address] [place], [place] 3088183 [employer] Operator: Morro Hale MD GFR, Amer >60 Normal >60 [facility] Comment on above: Performed By: #### U RTPRT #### [facility] [address] [place] [address] [employer] Operator: Morro Hale MD GFR,non Amer >60 Normal >60 [facility] Comment on above: Performed By: #### U RTPRT #### [facility] [address] [place] [address] [employer] Operator: Morro Hale MD Glucose [Mass/Vol] 120 mg/dL High 70-99 [facility] Comment on above: Performed By: #### U RTPRT #### [facility] [address] [place] [address] [employer] Operator: Morro Hale MD Potassium [Moles/Vol] 3.8 mmol/L Normal 3.7-5.3 [facility] Comment on above: Performed By: #### U RTPRT #### [facility] [address] [place], [place] 8024083 [employer] Operator: Morro Hale MD Protein [Mass/Vol] 6.1 g/dL Low 6.4-8.3 [facility] Comment on above: Performed By: #### U RTPRT #### [facility] [address] [place] [address] [employer] Operator: Morro Hale MD Sodium [Moles/Vol] 130 mmol/L Low 135-144 [facility] Comment on above: Performed By: #### U RTPRT #### [facility] [address] [place] [address] [employer] Operator: Morro Hale MD Staging: Normal [facility] Comment on above: Result Comment: Stag e 1: Some kidney damage normal GFR Stage 2: Mild kidney damage GFR 60-89 Stage 3: Moderate kidney damage GFR 30-59 Stage 4: Severe kidney damage GFR 15-29 Stage 5: Severe kidney damage GFR <15 ESRD - chronic treatment by dialysis or transplant Performed By: #### U RTPRT #### [facility] [address] [place] [address] [employer] Operator: Morro Hale MD Urea nitrogen [Mass/Vol] 11 mg/dL Normal 6-20 [facility] Comment on above: Performed By: #### U RTPRT #### [facility] [address] [place] [address] [employer] Operator: Morro Hale MD Comprehensive Metabolic Pane argelia 10-12-2021 Albumin [Mass/Vol] 3.3 g/dL Low 3.5 - 5.2 g/dL [facility] Albumin/Globulin [Mass ratio] 1.2 {ratio} [facility] ALP (Bld) [Catalytic activity/Vol] 112 U/L High 35 - 104 U/L [facility] ALT [Catalytic activity/Vol] 11 U/L 5 - 33 U/L [facility] Anion gap [Moles/Vol] 11 mmol/L 9 - 17 mmol/L [facility] AST [Catalytic activity/Vol] 14 U/L <32 [facility] Bilirubin [Mass/Vol] 0.27 mg/dL Low 0.3 - 1.2 mg/dL [facility] Calcium [Mass/Vol] 9.2 mg/dL 8.6 - 10. 4 mg/dL [facility] Chloride [Moles/Vol] 98 mmol/L 98 - 107 mmol/L [facility] CO2 [Moles/Vol] 21 mmol/L 20 - 31 mmol/L [facility] Creatinine [Mass/Vol] 0.58 mg/dL 0.50 - 0.90 mg/dL [facility] Free PSA/Total PSA [Mass fraction] 6.1 g/dL Low 6.4 - 8.3 g/dL [facility] GFR >60 >60 mL/min [facility] GFR Non- >60 >60 mL/min [facility] Glucose [Mass/Vol] 120 mg/dL High 70 - 99 mg/dL [facility] Interpretation and review of laboratory results Abnormal [facility] Potassium [Moles/Vol] 3.8 mmol/L 3.7 - 5.3 mmol/L [facility] Sodium [Moles/Vol] 130 mmol/L Low 135 - 144 mmol/L [facility] Urea nitrogen (BldV) [Mass/Vol] 11 mg/dL 6 - 20 mg/dL [facility] Urea nitrogen/Creatinine (Bld) [Mass ratio] 19 [facility] Drug Scr, Abuse, Uron 2021 Amphetamine(s),Ur Negative Normal NEG [facility] Comment on above: Performed By: #### D AU #### [facility] [address] [place], [place] 7252583 [employer] Operator: Morro Hale MD Barbiturate(s),Ur Negative Normal [facility] Comment on above: Performed By: #### D AU #### [address] [place], [place] [phone] [employer] Operator: Morro Hale MD Benzodiazepine(s) Negative Normal [facility] Comment on above: Performed By: #### D AU #### [facility] [address] [place], [place] 1614583 [employer] Operator: Morro Hale MD Buprenorphrine, Ur Negative Normal [facility] Comment on above: Performed By: #### D AU #### [facility] [address] [place] [address] Dr. [place], [place] [phone] [employer] Operator: Morro Hale MD Cannabinoid(s),Ur Negative Normal [facility] Comment on above: Performed By: #### D AU #### [facility] [address] [place], [place] [phone] [employer] Operator: Morro Hale MD Cocaine Metabolite Negative Normal [facility] Comment on above: Performed By: #### D AU #### [facility] [address] [place], [place] [phone] [employer] Operator: Morro Hale MD Methadone Ql (U) Negative Normal NEG [facility] Comment on above: Performed By: #### D AU #### [facility] [address] [place], [place] 6507983 [employer] Operator: Morro Hale MD Methamphetamine, Ur Negative Normal NEG [facility] Comment on above: Performed By: #### D AU #### [facility] [address] [place], [place] [phone] [employer] Operator: Morro Hale MD Opiate(s), Ur Negative Normal NEG [facility] Comment on above: Performed By: #### D AU #### [facility] [address] [place], [place] 8095383 [employer] Operator: Morro Hale MD Oxycodone, Urine Negative Normal NEG [facility] Comment on above: Performed By: #### D AU #### [facility] [address] [place] [address] [employer] Operator: Morro Hale MD Phencyclidine, Ur Negative Normal [facility] Comment on above: Performed By: #### D AU #### [facility] [address] [place], [place] [phone] [employer] Operator: Morro Hale MD Propoxyphene,Urine Negative Normal NEG [facility] Comment on above: Performed By: #### D AU #### [facility] [address] [place], [place] 6887583 [employer] Operator: Morro Hale MD Tricyclic antidepressants Screen Ql (U) Negative Normal [facility] Comment on above: Result Comment: Drug screen results are to be used for medical purposes only. All positive results are unconfirmed. Testing for employment or legal uses should be sent to a reference laboratory for confirmation. Performed By: #### D AU #### [facility] [address] [place], [place] [phone] [employer] Operator: Morro Hale MD Fibrinogenon 10-12-2021 Fibrinogen 572 mg/dL High 179-518 [facility] Comment on above: Performed By: #### U RTPRT #### [facility] [address] [place] [address] [employer] Operator: Morro Hale MD Fibrinogen 572 mg/dL High 179 - 518 mg/dL [facility] Interpretation and review of laboratory results Abnormal [facility] Glucose, Whole Bloodon 10-12 Glucose [Mass/Vol] 229 mg/dL High 74 - 100 mg/dL [facility] Interpretation and review of laboratory results Abnormal [facility] Glucose [Mass/Vol] 216 mg/dL High 74 - 100 mg/dL [facility] Interpretation and review of laboratory results Abnormal [facility] Glucose [Mass/Vol] 129 mg/dL High 74 - 100 mg/dL [facility] Interpretation and review of laboratory results Abnormal [facility] Laboratory - Chemistry and C hemistry - challengeon 10-12-2021 GFR/1.73 sq M.predicted MDRD (S/P/Bld) [Vol rate/Area] [facility] Comment on above: Average GFR for 30-3 9 years old: 107 mL/min/1.73sq m Chronic Kidney Disease: <60 mL/min/1.73sq m Kidney failure: <15 mL/min/1.73sq m eGFR calculated using average adult body mass. Additional eGFR calculator available at: http://www.[employer]/multiple_crcl_2012.htm Stage 1: Some kidney damage normal GFR Stage 2: Mild kidney damage GFR 60-89 Stage 3: Moderate kidney damage GFR 30-59 Stage 4: Severe kidney damage GFR 15-29 Stage 5: Severe kidney damage GFR <15 ESRD - chronic treatment by dialysis or transplant Lactate Dehydrogenaseon - LDH [Catalytic activity/Vol] 194 U/L Normal 135-214 [facility] Comment on above: Performed By: #### U RTPRT #### [facility] [address] [place] [address] [employer] Operator: Morro Hale MD LD 194 U/L 135 - 214 U/L [facility] Magnesiumon 10-12-2021 Interpretation and review of laboratory results Abnormal [facility] Magnesium [Mass/Vol] 4.1 mg/dL Critically high 1.6 - 2.6 mg/dL [facility] Magnesium [Mass/Vol] 4.0 mg/dL Critically high 1.6-2.6 [facility] Comment on above: Performed By: #### M G #### [facility] [address] [place] [address] [place] [address] [employer] Operator: Morro Hale MD Interpretation and review of laboratory results Abnormal [facility] Magnesium [Mass/Vol] 4.0 mg/dL Critically high 1.6 - 2.6 mg/dL [facility] No Panel Informationon 10-12 [facility] OPERATIVE REPORTon OPERATIVE REPORT [address] [address] OPERATIVE REPORT PATIENT NAME: SOLANGE LUCAS : 1985 MED REC NO: [id number] ROOM: 0203 ACCOUNT NO: [id number] ADMIT DATE: 10/12/2021 PROVIDER: Kang Panda MD DATE OF PROCEDURE: 10/12/2021 ADDENDUM MORTGAGE MANAGER: ELINOR Chambers MD [email or web address] Doc#: [id number] Normal [facility] OPERATIVE REPORT [address] [address] OPERATIVE REPORT PATIENT NAME: SOLANGE LUCAS : 1985 MED REC NO: [id number] ROOM: 0203 ACCOUNT NO: [id number] ADMIT DATE: 10/12/2021 PROVIDER: Kang Panda MD [...] extended in a semilunar fashion 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 head was elevated. Fundal pressure [...] and cut. handed off to nursing and airport tower controller who attended the delivery. Cord blood specimen [...] noted to be correct. KANG PANDA MD /[id number] Doc#: [id number] CC: Normal [facility] PTon 10-12-2021 INR Coag (PPP) [Relative time] 1.0 {INR} Normal [facility] Comment on above: Result Comment: Non-therapeutic Range: INR = 0.9-1.2 Therapeutic Range: Moderate Anticoagulant Intensity: INR = 2.0-3.0 High Anticoagulant Intensity: INR = 2.5-3.5 Performed By: #### U RTPRT #### [address] [place] [address] Crinkling Machine Operator: Morro Hale MD PT Coag (PPP) [Time] 13.1 s Normal 11.5-14.2 [facility] Comment on above: Performed By: #### U RTPRT #### [facility] [address] [place] [id number] Crinkling Machine Operator: Morro Hale MD Protein / Creatinine Ratio, Urineon 10-12-2021 Creatinine, Ur 51.4 mg/dL 28.0 - 217.0 mg/dL [facility] Protein (U) [Mass/Vol] 5 mg/dL [facility] Comment on above: No normal range esta blished. Urine Total Protein Creatinine Ratio 0.[address] [facility] Protein,Tot,Elkins Uron 2021 Creatinine [Mass/Vol] 51.4 mg/dL Normal 28.0-217.0 [facility] Comment on above: Performed By: #### U RTPRT #### [facility] [address] [place] [address] Dr[place], [place] [id number] Crinkling Machine Operator: Morro Hale MD Tot Prot. Conc. 5 mg/dL Normal [facility] Comment on above: Result Comment: No n ormal range established. Performed By: #### U RTPRT #### [facility] [address] [place] [address] Dr[place], [place] [id number] Crinkling Machine Operator: Morro Hale MD TP/Cre Ratio 0.10 Normal 0.00-0.20 [facility] Comment on above: Performed By: #### U RTPRT #### [facility] [address] [place] [address] Dr[place], [place] [id number] Crinkling Machine Operator: Morro Hale MD Protime-INRon 10-12-2021 INR Coag (Bld) [Relative time] 1.0 {INR} [facility] Comment on above: Non-therapeutic Range: INR = 0.9-1.2 Therapeutic Range: Moderate Anticoagulant Intensity: INR = 2.0-3.0 High Anticoagulant Intensity: INR = 2.5-3.5 PT Coag (PPP) [Time] 13.1 s [facility] Surgical Pathologyon 022 Surgical Pathology (NOTE) [...] TUBE C: PLACENTA Gross Description A. SOLANGE LUCAS, LEFT TUBE 6.5 x 0.5 x 0.5 cm fimbriated fallopian tube segment. The serosa is dusky purple and smooth. A pinpoint lumen is identified. There is a separate 0.6 cm thin-walled cyst in the container. Entirely 3cs. B. SOLANGE LUCAS, RIGHT TUBE 6.0 x 0.6 x 0.6 cm fimbriated fallopian tube segment. The serosa has dusky purple discoloration and is smooth. A pinpoint lumen is identified. There is a separate 0.3 cm thin-walled cyst in the container and a 0.5 cm piece of blue-armstrong fibromembranous tissue. Cassette summary: 1 fimbriae and separate pieces x 2, 2-3 remainder of fallopian tube. C. SOLANGE LUCAS, UNDESIGNATED Placenta with attached membranes and umbilical [...] microcalcifications SURGICAL PATHOLOGY CONSULTATION Patient Name: SOLANGE LUCAS [facility] Rec: [id number] Path Number: [id number] [facility] ANATOMIC PATHOLOGY [address] [place] [address]. [place], [place] [address] Normal [facility] Comment on above: Performed By: #### M G #### [facility] [address] [place] [address] Crinkling Machine Operator: Morro Hale MD TYPE AND SCREENon 10-12-2021 ABO/Rh Positive [facility] Arm Band Number [id number] [facility] Expiration Date 10/15/2021,[address] [facility] Type + Screenon 10-12-2021 Type + Screen Sample Expiration 10/15/2021,2351 Arm Band Number [id number] ABO/Rh(D) O POSITIVE Antibody Screen NEGATIVE [facility] Comment on above: Performed By: #### T YS #### [facility] [address] [place] [address] [place] [address] Crinkling Machine Operator: Morro Hale MD Uric Acidon 10-12-2021 Urate [Mass/Vol] 4.4 mg/dL Normal 2.4-5.7 [facility] Comment on above: Performed By: #### U RTPRT #### [address] [place] [address] Crinkling Machine Operator: Morro Hale MD Urate [Mass/Vol] 4.4 mg/dL 2.4 - 5.7 mg/dL [facility] Urinalysison 10-12-2021 Bilirubin Urine Negative NEGATIVE [facility] Color, UA Yellow Yellow [facility] Glucose, Ur Negative NEGATIVE [facility] Ketones Ql (U) Negative NEGATIVE [facility] Leukocyte esterase Test strip Ql (U) Negative NEGATIVE [facility] Nitrite, Urine Negative NEGATIVE [facility] pH, UA 6.0 [facility] Protein, UA Negative NEGATIVE [facility] Specific Kiester, UA 1.015 [facility] Turbidity UA Clear Clear [facility] Urine Hgb Negative NEGATIVE [facility] Urobilinogen, Urine Normal Normal [facility] Urinalysis, Routineon 2021 Bilirubin, SemiQt,Ur Negative Normal NEG [facility] Comment on above: Performed By: #### M G #### [facility] [address] [place], [facility]83 Crinkling Machine Operator: Morro Hale MD Blood, Urine Negative Normal NEG [facility] Comment on above: Performed By: #### M G #### [facility] [address] [place], [facility]83 Crinkling Machine Operator: Morro Hlae MD Clarity (U) Clear Normal CLEAR [facility] Comment on above: Performed By: #### M G #### [facility] [address] [place] [address] Crinkling Machine Operator: Morro Hale MD Color (U) Yellow Normal YEL [facility] Comment on above: Performed By: #### M G #### [facility] [address] [place], [facility]83 Crinkling Machine Operator: Morro Hale MD Glucose Ql (U) Negative Normal NEG [facility] Comment on above: Performed By: #### M G #### [address] [place] [id number] Crinkling Machine Operator: Morro Hale MD Ketones Ql (U) Negative Normal NEG [facility] Comment on above: Performed By: #### M G #### [facility] [address] [place], [facility]83 Crinkling Machine Operator: Morro Hale MD Leukocyte esterase Test strip Ql (U) Negative Normal NEG [facility] Comment on above: Performed By: #### M G #### [facility] [address] [place] [address] Crinkling Machine Operator: Morro Hale MD Nitrite,Ur Negative Normal [facility] Comment on above: Performed By: #### M G #### [facility] [address] [place], [place] [address] Crinkling Machine Operator: Morro Hale MD PH,Ur 6.0 Normal 5.0-9.0 [facility] Comment on above: Performed By: #### M G #### [facility] [address] [place], [place] 246[address]83 Crinkling Machine Operator: Morro Hale MD Protein Ql (U) Negative Normal NEG [facility] Comment on above: Performed By: #### M G #### [facility] [address] [place], [place] 327[address]83 Crinkling Machine Operator: Morro Hale MD Spec. Kiester,Ur 1.015 Normal 1.010-1.02 0 [facility] Comment on above: Performed By: #### M G #### [facility] [address] [place], [place] 406[address]83 Crinkling Machine Operator: Morro Hale MD Urobilinogen,Ur Normal Normal NORM [facility] Comment on above: Performed By: #### M G #### [facility] [address] [place], [place] 0623683 Crinkling Machine Operator: Morro Hale MD Urine Drug Screenon 10-13-19 22 Amphetamine Screen, Ur Negative NEGATIVE [facility] Barbiturate Screen, Ur Negative NEGATIVE [facility] Benzodiazepine Screen, Urine Negative NEGATIVE [facility] Buprenorphine Urine Negative NEGATIVE [facility] Health Cannabinoid Scrn, Ur Negative NEGATIVE [facility] Cocaine Metabolite, Urine Negative NEGATIVE [facility] Methadone Screen, Urine Negative NEGATIVE [facility] Methamphetamine, Urine Negative NEGATIVE [facility] Opiates, Urine Negative NEGATIVE [facility] th Oxycodone Screen, Ur Negative NEGATIVE [facility] Health Phencyclidine, Urine Negative NEGATIVE [facility] Propoxyphene, Urine Negative NEGATIVE [facility] Tricyclic Antidepressants, Urine Negative NEGATIVE [facility] Comment on above: Drug screen results are to be used for medical purposes only. All positive results are unconfirmed. Testing for employment or legal uses should be sent to a reference laboratory for confirmation. [employer] [facility] GBS, External Resulton 09-26 GBS, External Result Positive [facility] Work Phone: Verified with Jacqueline Manuel RN [employer] Phone: [employer] Phone: US Biophysical Profileon US Biophysical Profile FINDINGS: Breathing Movements2 Gross Body Movements 2 Tone2 Qualitative amniotic fluid volume2 A single, viable intrauterine is present. Heart rate 128 bpm. Cervix is closed 4.0 cm. Cephalic presentation, posterior fundal placenta, Grade 2. IMPRESSION: Posterior fundal placenta Grade 2 and normal biophysical profile. Report reported and signed by Ruben Howell on 09/26/2021 1028 Normal [facility] Roll Panner OB Limitedon 09-26-2021 OB Limited FINDINGS: Comparsion [...] by Ruben Howell on 09/26/2021 0933 Normal [facility] [employer] OB Limitedon 09-18-2021 US OB Limited FINDINGS: [...] by Ruben Howell on 09/19/2021 0823 Normal [facility] CBC with Auto Differentialon 09-16-2021 Absolute Eos # 0.12 [facility] th Absolute Immature Granulocyte 0.10 [facility] [place] [facility] Absolute Lymph # 2.44 [facility] He alth Absolute Independence # 0.62 [facility] Basophils (Bld) [#/Vol] 0.04 10*3/uL [facility] [place] [facility] Basophils/100 WBC (Bld) 0 % 0 - 2 % [facility] Eosinophils/100 WBC (Bld) 1 % 1 - 4 % [facility] Hematocrit (Bld) [Volume fraction] 35.0 % Low 36.3 - 47.1 % [facility] Hemoglobin.gastroin testinal spec 1 Ql (Stl) 11.2 g/dL Low 11.9 - 15.1 g/dL [facility] Immature granulocytes/100 WBC (Bld) 1 % High 0 [facility] Interpretation and review of laboratory results Abnormal [facility] Lymphocytes/100 WBC (Bld) 21 % Low 24 - 43 % [facility] MCH (RBC) [Entitic mass] 27.5 pg 25.2 - 33.5 pg [facility] MCHC (RBC) [Mass/Vol] 32.0 g/dL 28.4 - 34.8 g/dL [facility] MCV (RBC) [Entitic vol] 86.0 fL 82.6 - 102.9 fL [facility] Monocytes/100 WBC (Bld) 5 % 3 - 12 % [facility] NRBC Automated 0.0 0.0 per 100 WBC [facility] Platelet distribution width (Bld) [Ratio] 14.2 % 11.8 - 14.4 % [facility] Platelet mean volume (Bld) [Entitic vol] 9.6 fL 8.1 - 13.5 fL [facility] Platelets (Bld) [#/Vol] 210 10*3/uL [facility] RBC (Bld) [#/Vol] 4.07 10*6/uL 3.95 - 5.11 m/uL [facility] Segmented neutrophils/100 WBC (Bld) 72 % High 36 - 65 % [facility] Segs Absolute 8.37 [facility] (Bld) [#/Vol] 11.7 10*3/uL High [facility] CBC with Diffon 09-16-2021 Abs. Basophil 0.04 k/uL Normal 0.00-0.20 [facility] Comment on above: Performed By: #### L D, CP, URI, CDP #### [facility] [address] [place] [address] Crinkling Machine Operator: Morro Hale MD Abs.Imm.Granulocyte 0.10 k/uL Normal 0.00-0.30 [facility] Comment on above: Performed By: #### L Carla, YUMIKO, URI, CDP #### [address] [place] [address] Crinkling Machine Operator: Morro Hale MD Abs.Neutrophil (Seg) 8.37 k/uL High 1.50-8.10 [facility] Comment on above: Performed By: #### L Carla, YUMIKO, URI, CDP #### [address] [place] [address]383 Crinkling Machine Operator: Morro Hale MD Basophils/100 WBC (Bld) 0 % Normal 0-2 [facility] Comment on above: Performed By: #### L YUMIKO Aguirre, URI, CDP #### [address] [place] [address]383 Crinkling Machine Operator: Morro Hale MD Eosinophils (Bld) [#/Vol] 0.12 10*3/uL Normal 0.00-0.44 [facility] Comment on above: Performed By: #### Elliot Aguirre CP, URI, CDP #### [address] [place], [facility]83 Crinkling Machine Operator: Morro Hale MD Eosinophils/100 WBC (Bld) 1 % Normal 1-4 [facility] Comment on above: Performed By: #### L YUMIKO Aguirre, URI, CDP #### [address] [place], [facility]83 Crinkling Machine Operator: Morro Hale MD Erythrocyte distribution width (RBC) [Ratio] 14.2 % Normal 11.8-14.4 [facility] Comment on above: Performed By: #### L Carla, YUMIKO, URI, CDP #### [address] [place], [facility]83 Crinkling Machine Operator: Morro Hale MD Hematocrit (Bld) [Volume fraction] 35.0 % Low 36.3-47.1 [facility] Comment on above: Performed By: #### L Carla, YUMIKO, URI, CDP #### [facility] [address] [place] [address] [place] [address] Crinkling Machine Operator: Morro Hale MD Hemoglobin (Bld) [Mass/Vol] 11.2 g/dL Low 11.9-15.1 [facility] Comment on above: Performed By: #### L Carla, YUMIKO, URI, CDP #### [address] [place], [place] 5992983 Crinkling Machine Operator: Morro Hale MD Immature granulocytes/100 WBC (Bld) 1 % High 0 [facility] Comment on above: Performed By: #### L YUMIKO Aguirre, URI, CDP #### [address] [place], [place] 67[address]83 Crinkling Machine Operator: Morro Hale MD Lymphocytes (Bld) [#/Vol] 2.44 10*3/uL Normal 1.10-3.70 [facility] Comment on above: Performed By: #### L YUMIKO Aguirre URI, CDP #### [address] [place], [place] 8430783 Crinkling Machine Operator: Morro Hael MD Lymphocytes/100 WBC (Bld) 21 % Low 24-43 [facility] Comment on above: Performed By: #### L YUMIKO Aguirre, URI, CDP #### [address] [place], [place] 432[address] Crinkling Machine Operator: Morro Hale MD MCH (RBC) [Entitic mass] 27.5 pg Normal 25.2-33.5 [facility] Comment on above: Performed By: #### L Carla, YUMIKO, URI, CDP #### [address] [place], [place] 4898583 Crinkling Machine Operator: Morro Hale MD MCHC (RBC) [Mass/Vol] 32.0 g/dL Normal 28.4-34.8 [facility] Comment on above: Performed By: #### Elliot Aguirre CP, URI, CDP #### [address] [place], [place] 2927283 Crinkling Machine Operator: Morro Hale MD MCV (RBC) [Entitic vol] 86.0 fL Normal 82.6-102.9 [facility] Comment on above: Performed By: #### Elliot Aguirre CP, URI, CDP #### [address] [place] [address] Crinkling Machine Operator: Morro Hale MD Monocytes (Bld) [#/Vol] 0.62 10*3/uL Normal 0.10-1.20 [facility] Comment on above: Performed By: #### Elliot Aguirre CP, URI, CDP #### [address] [place], [place] 9127183 Crinkling Machine Operator: Morro Hale MD Monocytes/100 WBC (Bld) 5 % Normal 3-12 [facility] Comment on above: Performed By: #### Elliot Aguirre CP, URI, CDP #### [address] [place], [place] 0920083 Crinkling Machine Operator: Morro Hale MD Neutrophil (Seg) 72 % High 36-65 [facility] Comment on above: Performed By: #### Elliot Aguirre CP URI, CDP #### [address] [place], [place] 6906883 Crinkling Machine Operator: Morro Hale MD NRBC Automated 0.0 per 100 WBC Normal 0.0 [facility] Comment on above: Performed By: #### Elliot Aguirre CP URI, CDP #### [address] [place], [place] 1195983 Crinkling Machine Operator: Morro Hale MD Platelet mean volume (Bld) [Entitic vol] 9.6 fL Normal 8.1-13.5 [facility] Comment on above: Performed By: #### L Carla, CP, URI, CDP #### [facility] [address] [place], [place] 6505283 Crinkling Machine Operator: Morro Hale MD Platelets (Bld) [#/Vol] 210 10*3/uL Normal 138-453 [facility] Comment on above: Performed By: #### L Carla, CP, URI, CDP #### [facility] [address] [place], [place] 2893783 Crinkling Machine Operator: Morro Hale MD RBC (Bld) [#/Vol] 4.07 10*6/uL Normal 3.95-5.11 [facility] Comment on above: Performed By: #### L Carla, CP, URI, CDP #### [address] [place], [place] 9845483 Crinkling Machine Operator: Morro Hale MD WBC (Bld) [#/Vol] 11.7 10*3/uL High 3.5-11.3 [facility] Comment on above: Performed By: #### L Carla, YUMIKO, URI, CDP #### [address] [place], [place] 2070883 Crinkling Machine Operator: Morro Hale MD Comp Metabolic Profon 2021 (cont.) Normal [facility] Comment on above: Result Comment: Aver age GFR for 30-39 years old: 107 mL/min/1.73sq m Chronic Kidney Disease: <60 mL/min/1.73sq m Kidney failure: <15 mL/min/1.73sq m eGFR calculated using average adult body mass. Additional eGFR calculator available at: http://www.[employer]/multiple_crcl_2012.htm Performed By: #### L Carla, CP, URI, CDP #### [facility] [address] [place], [place] 7480883 Crinkling Machine Operator: Morro Hale MD Albumin [Mass/Vol] 3.4 g/dL Low 3.5-5.2 [facility] Comment on above: Performed By: #### L Carla, YUMIKO, URI, CDP #### [facility] [address] [place], [place] 2831583 Crinkling Machine Operator: Morro Hale MD Albumin/Glob Ratio 1.2 Normal 1.0-2.5 [facility] Comment on above: Performed By: #### L Carla, CP, URI, CDP #### [facility] [address] [place], [place] 5760383 Crinkling Machine Operator: Morro Hale MD Alkaline Phos 98 U/L Normal 35-104 [facility] Comment on above: Performed By: #### L Carla, YUMIKO, URI, CDP #### [facility] [address] [place], [place] 1140083 Crinkling Machine Operator: Morro Hale MD ALT [Catalytic activity/Vol] 10 U/L Normal 5-33 [facility] Comment on above: Performed By: #### L Carla, YUMIKO, URI, CDP #### [facility] [address] [place] [address] [place], [place] 5007483 [employer]inkling Machine Operator: Morro Hale MD Anion gap [Moles/Vol] 8 mmol/L Low 9-17 [facility] Comment on above: Performed By: #### L YUMIKO Aguirre, URI, CDP #### [facility] [address] [place], [place] 0438583 Crinkling Machine Operator: Morro Hale MD AST [Catalytic activity/Vol] 13 U/L Normal <32 [facility] Comment on above: Performed By: #### L Carla, YUMIKO, URI, CDP #### [facility] [address] [place], [place] 8496083 Crinkling Machine Operator: Morro Hale MD Bilirubin [Mass/Vol] 0.17 mg/dL Low 0.3-1.2 [facility] Comment on above: Performed By: #### L D, CP, URI, CDP #### [facility] [address] [place] [address] Crinkling Machine Operator: Morro Hale MD BUN/CRE Ratio 21 High 9-20 [facility] Comment on above: Performed By: #### L D, CP, URI, CDP #### [facility] [address] [place], [place] 9528683 Crinkling Machine Operator: Morro Hale MD Calcium [Mass/Vol] 9.1 mg/dL Normal 8.6-10.4 [facility] Comment on above: Performed By: #### L D, CP, URI, CDP #### [facility] [address] [place] [address] [employer]inkling Machine Operator: Morro Hale MD Chloride [Moles/Vol] 103 mmol/L Normal 98-107 [facility] Comment on above: Performed By: #### L D, CP, URI, CDP #### [address] [place], [place] 1017083 [employer] Operator: Morro Hale MD CO2 [Moles/Vol] 24 mmol/L Normal 20-31 [facility] Comment on above: Performed By: #### L D, CP, URI, CDP #### [facility] [address] [place] [address] Dr[place], [place] 7605383 [employer]inkling Machine Operator: Morro Hale MD Creatinine [Mass/Vol] 0.48 mg/dL Low 0.50-0.90 [facility] Comment on above: Performed By: #### L D, CP, URI, CDP #### [facility] [address] [place], [place] 0001683 [employer] Operator: Morro Hale MD GFR, Amer >60 Normal >60 [facility] Comment on above: Performed By: #### L D, CP, URI, CDP #### [facility] [address] [place], [place] 2402783 [employer]inkling Machine Operator: Morro Hale MD GFR,non Amer >60 Normal >60 [facility] Comment on above: Performed By: #### L D, CP, URI, CDP #### [facility] [address] [place], [place] 3786683 [employer] Operator: Morro Hale MD Glucose [Mass/Vol] 162 mg/dL High 70-99 [facility] Comment on above: Performed By: #### L D, CP, URI, CDP #### [facility] [address] [place], [place] 9766683 [employer] Operator: Morro Hale MD Potassium [Moles/Vol] 3.9 mmol/L Normal 3.7-5.3 [facility] Comment on above: Performed By: #### L D, CP, URI, CDP #### [facility] [address] [place], [place] 8351483 [employer] Operator: Morro Hale MD Protein [Mass/Vol] 6.2 g/dL Low 6.4-8.3 [facility] Comment on above: Performed By: #### L D, CP, URI, CDP #### [facility] [address] [place] [address] Dr[place], [place] 9895183 [employer] Operator: Morro Hale MD Sodium [Moles/Vol] 135 mmol/L Normal 135-144 [facility] Comment on above: Performed By: #### L D, CP, URI, CDP #### [facility] [address] [place], [place] 8823083 [employer] Operator: Morro Hale MD Staging: Normal [facility] Comment on above: Result Comment: Stag e 1: Some kidney damage normal GFR Stage 2: Mild kidney damage GFR 60-89 Stage 3: Moderate kidney damage GFR 30-59 Stage 4: Severe kidney damage GFR 15-29 Stage 5: Severe kidney damage GFR <15 ESRD - chronic treatment by dialysis or transplant Performed By: #### L D, YUMIKO, URI, CDP #### [facility] [address] [place] [address] [employer] Operator: Morro Hale MD Urea nitrogen [Mass/Vol] 10 mg/dL Normal 6-20 [facility] Comment on above: Performed By: #### L Carla, YUMIKO, URI, CDP #### [facility] [address] [place] [address] [employer]inkling Machine Operator: Morro Hale MD Comprehensive Metabolic Pane argelia 09-16-2021 Albumin [Mass/Vol] 3.4 g/dL Low 3.5 - 5.2 g/dL [facility] [facility] Albumin/Globulin [Mass ratio] 1.2 {ratio} [facility] ALP (Bld) [Catalytic activity/Vol] 98 U/L 35 - 104 U/L [facility] ALT [Catalytic activity/Vol] 10 U/L 5 - 33 U/L [facility] Anion gap [Moles/Vol] 8 mmol/L Low 9 - 17 mmol/L [facility] AST [Catalytic activity/Vol] 13 U/L <32 [facility] Bilirubin [Mass/Vol] 0.17 mg/dL Low 0.3 - 1.2 mg/dL [facility] Calcium [Mass/Vol] 9.1 mg/dL 8.6 - 10. 4 mg/dL [facility] Chloride [Moles/Vol] 103 mmol/L 98 - 107 mmol/L [facility] CO2 [Moles/Vol] 24 mmol/L 20 - 31 mmol/L [facility] Creatinine [Mass/Vol] 0.48 mg/dL Low 0.50 - 0.90 mg/dL [facility] Free PSA/Total PSA [Mass fraction] 6.2 g/dL Low 6.4 - 8.3 g/dL [facility] GFR >60 >60 mL/min [facility] GFR Non- >60 >60 mL/min [facility] Glucose [Mass/Vol] 162 mg/dL High 70 - 99 mg/dL [facility] Interpretation and review of laboratory results Abnormal [facility] Potassium [Moles/Vol] 3.9 mmol/L 3.7 - 5.3 mmol/L [facility] Sodium [Moles/Vol] 135 mmol/L 135 - 144 mmol/L [facility] Urea nitrogen (BldV) [Mass/Vol] 10 mg/dL 6 - 20 mg/dL [facility] Urea nitrogen/Creatinine (Bld) [Mass ratio] 21 High [facility] Laboratory - Chemistry and C hemistry - challengeon 09-16-2021 GFR/1.73 sq M.predicted MDRD (S/P/Bld) [Vol rate/Area] [facility] Comment on above: Average GFR for 30-3 9 years old: 107 mL/min/1.73sq m Chronic Kidney Disease: <60 mL/min/1.73sq m Kidney failure: <15 mL/min/1.73sq m eGFR calculated using average adult body mass. Additional eGFR calculator available at: http://www.[employer]/multiple_crcl_2012.htm Stage 1: Some kidney damage normal GFR Stage 2: Mild kidney damage GFR 60-89 Stage 3: Moderate kidney damage GFR 30-59 Stage 4: Severe kidney damage GFR 15-29 Stage 5: Severe kidney damage GFR <15 ESRD - chronic treatment by dialysis or transplant Lactate Dehydrogenaseon 09-05 LDH [Catalytic activity/Vol] 174 U/L Normal 135-214 [facility] Comment on above: Performed By: #### L D, CP, URI, CDP #### [facility] [address] [place] [address] Crinkling Machine Operator: Morro Hale MD LD 174 U/L 135 - 214 U/L [facility] No Panel Informationon 09-16 [facility] Protein / Creatinine Ratio, Urineon 09-16-2021 Creatinine, Ur 93.8 mg/dL 28.0 - 217.0 mg/dL [facility] Protein (U) [Mass/Vol] 7 mg/dL [facility] Comment on above: No normal range esta blished. Urine Total Protein Creatinine Ratio 0.[address] [facility] Protein,Tot,Elkins Uron 2021 Creatinine [Mass/Vol] 93.8 mg/dL Normal 28.0-217.0 [facility] Comment on above: Performed By: #### U RTPRT #### [facility] [address] [place], [place] [id number] Crinkling Machine Operator: Morro Hale MD Tot Prot. Conc. 7 mg/dL Normal [facility] Comment on above: Result Comment: No n ormal range established. Performed By: #### U RTPRT #### [facility] [address] [place], [place] [id number] Crinkling Machine Operator: Morro Hale MD TP/Cre Ratio 0.07 Normal 0.00-0.20 [facility] Comment on above: Performed By: #### U RTPRT #### [facility] [address] [place], [place] [id number] Crinkling Machine Operator: Morro Hale MD Uric Acidon 09-16-2021 Urate [Mass/Vol] 2.8 mg/dL Normal 2.4-5.7 [facility] Comment on above: Performed By: #### L D, CP, URI, CDP #### [address] [place], [place] [id number] Crinkling Machine Operator: Morro Hale MD Urate [Mass/Vol] 2.8 mg/dL 2.4 - 5.7 mg/dL [facility] US OB Limitedon 09-07-2021 OB Limited FINDINGS: Single viable intrauterine . BEN 17.0 cm. Closed cervix 4.3 cm length. Cephalic presentation. IMPRESSION: 1. Single viable intrauterine , cephalic presentation. 2. BEN 17.0 cm. Report reported and signed by Ruben Howell on 09/07/2021 1019 Normal [facility] Roll Panner COVID Quick Testingon 2020 Result Negative [employer] Other Quick Strepon 06-14-2021 S. pyogenes Org specific cx Ql (Throat) Negative [employer] Other Quick Strep [facility]ur[facility] [employer] Other [facility] LABon 04-19-[address] [facility] Comment on above: Order Comment: @[facility] Test Name: INHERITEST CARRIER SCREEN [id number] CPT 71326;59085;14052 Result Comment: See report. Scanned copy available in EMR. PERFORMED BY: [place] [address] PATHOLOGIST LIME SUPERVISOR FILEMON VARGAS M.D. Performed By: #### M [facility] #### [address] ABO, External Resulton 03-22 ABO, External Result o [facility] Work Phone: C. Trachomatis, External Res ulton 03-22-2021 C. Trachomatis, External Result Negative [facility] Work Phone: HIV, External Resulton 03-22 HIV, External Result Non-Reactive [facility] Work Phone: Hepatitis B, External Result on 03-22-2021 Hep B, External Result Non-Reactive [facility] Work Phone: N. Gonorrhoeae, External Res ulton 03-22-2021 N. Gonorrhoeae, External Result Negative [employer] Phone: No Panel InformationOrdered By: Nerissa Lerma on 03-22-2021 [facility] No Panel Informationon 03-22 Verified with Jacqueline Manuel RN [employer] Phone: [facility] Work Phone: RPR, External Labon 03-22-20 21 RPR, External Result Non-Reactive [facility] Work Phone: Rh Factor, External ResultOr dered By: Nerissa Lerma on 03-22-2021 Rh Factor, External Result + [facility] Rubella Titer, External Resu lton 03-22-2021 Rubella Titer, External Result immune [facility] Work Phone: Coding Summaryon 04-23-2017 Coding Summary CODING DATE: 017 [facility] STATUS: Home PAYOR: [employer] ADMIT [...] Saved: 04/23/2017 01:25 pm Normal [facility] ED Clinical Summaryon 2016 ED Clinical Summary [facility] ? Urgent [address] [place] [id number] clinical SummaryPERSON INFORMATIONName: LINDAJOSHSOLANGE Age: 32 Years Sex: FEMALEDOB: [birth year] MRN: Acct#:Visit Reason: Lower leg pain-swelling; LEFT LEG PAIN AND SWELLING Arrival:04/12/17 12:10:00 Discharge: 04/12/17 12:37:00LOS: 000 00:27 Check In: 04/12/17 12:10:00 Checkout: 04/12/17 12:37:00Address:[address] [place] [id number]: Edward McqueenPROAZEEM INFORMATIONProvider Role Assigned UnassignedBentley Amin PA-C ED PA 04/12/17 12:23:22VITALS INFORMATIONVital Sign Triage LatestTemperature TympanicTemperature Temporal ArteryPulse Rate 97 bpm 97 bpmO2 Sat 98 % 98 %Respiratory Rate 20 br/min 20 br/minBlood Pressure 120 mmHg/90 mmHg 120 mmHg/90 mmHgMEDICAL INFORMATIONMedications Given:Allergy Information:PHYSICIAN DOCUMENTATIONDISCHARGE INFORMATION:Discharge Disposition: HomeDischarge Location: HomePATIENT EDUCATION INFORMATIONInstructions: Muscle Strain, Nqwu-bn-WvquWgqoba-Up:With: Address: When:Rober Loya [address] [place] [address], [address] [place], [phone] Business (2) Within 3 to 5 days, only if neededWith: Address: When:Edward Mcqueen [address] [phone] Business (1) Within 3 to 5 daysDIAGNOSIS:Muscle strain of lower legComment: Normal [facility] ED Note - Physicianon 2016 ED Note - Physician Patient: NILTON BROWER : 32 years Sex: FEMALE : [birth year]Associated Diagnoses: Muscle strain of lower legAuthor: Bentley Amin PA-CHistory of Present IllnessThis is a 32 year old here today with concerns of feeling a pop in her calf 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 [...] mmHg SpO2 98 % O2 Flow 0 L/min.Vkgnbspsqbke47/06/17 12:15 EDT Height/Length Dosing 157.4 cm Weight [...] ice and elevate. OTC Motrin for pain, Sealevel as needed for severe pain. Return with new, or worsening symptoms, or symptoms failing to improve as expected and the patient voiced their understanding. Questions answered. Follow-up with their family doctor as directed, return here sooner as needed. See ortho as needed.Impression and PlanDiagnosisMuscle strain of lower leg ([id number]-LT S86.919A, Discharge, Medical)PlanCondition: Stable.Disposition: Discharged: Time 04/12/17 12:36:00, to home.Prescriptions: Launch prescriptionsPharmacy:Sealevel 5 mg-325 mg oral tablet (Prescribe): 1 tab(s), PO, q6hr, for 3 day(s), PRN: for pain, 12 tab(s), 0 Refill(s).Patient was given the following educational materials: Muscle Strain, Ulhv-id-Alyp, Muscle Strain, Rbij-og-Vkmy.Follow up with: Edward Mcqueen Within 3 to 5 days; Rober Loya Within 3 to 5 days, only if needed.Counseled: Patient, Regarding diagnosis, Regarding treatment plan, Regarding prescription, Patient indicated understanding of instructions.Orders: Launch OrdersMiscellaneous Request:Excuse from Work/School (Order): 04/12/17 12:49 EDT, May require sitting intermittently for the next week..[Electronically Signed on: 04/12/2017 12:51 EDT] Bentley Amin PA-C[Verified on: 04/12/2017 12:51 EDT] Bentley Amin PA-C [facility] ED Patient Summaryon 017 ED Patient Summary [facility] ? Urgent [address] [place] [id number] pATIENT DISCHARGE INSTRUCTIONSPatient InformationName: SOLANGE BROWER Age: 32 YearsDate of : [birth year]MRN: [id number] For Visit: Lower leg pain-swelling; LEFT LEG PAIN AND SWELLINGArrival Time: 04/12/17 12:10:00Phone: Primary Care Physician: Pat Mcqueen Physician: Bentley Aminomment:Patient EducationWith: Address: When:Rober Loya [address] [place] [address], [place], [phone] Business (2) Within 3 to 5 days, only if neededWith: Address: When:Edward Mcqueen [address] [place] [address] Business (1) Within 3 to 5 daysMuscle [...] Reviewed: 01/21/2014Luz [employer] Patient Education ?2016 ContraFect.Medication Information:The exam and treatment you received today in the [facility] were for an urgent problem and are not intended as complete care. It is important for you to follow up with a doctor, nurse practitioner, or physician?s evaluation assistant for ongoing care. If your symptoms [...] we can reach you if necessary.[facility] Emergency Department has provided you with a complete list of medications post discharge. 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 Any specific questions regarding your chronic medications and dosages should be discussed with your primary care physician(s) and/or pharmacist. New MedicationsPrinted Prescriptionsacetaminophen-h ydrocodone (Sealevel 5 mg-325 mg oral tablet) 1 tab(s) Oral Every 6 hours as needed for pain for 3 Days. Refills: 0.Visit InformationVisit Diagnosis:Diagnoses This Visit Lower leg pain-swelling ([id number]) Muscle strain of lower leg (S86.919A)If you [...] and Prevention March 2014 Normal [facility]gent Care [place] 017 Urgent Care Record [facility] ? Urgent [address] [place] [id number] pATIENT DISCHARGE INSTRUCTIONSPatient InformationName: SOLANGE BROWER Age: 32 YearsDate of : [birth year]MRN: [id number] For Visit: Lower leg pain-swelling; LEFT LEG PAIN AND SWELLINGArrival Time: 04/12/17 12:10:00Phone: Primary Care Physician: Pat Mcqueen Physician: Bentley Amin-CComment:Visit Diagnosis:Diagnoses This Visit Lower leg pain-swelling ([id number]) Muscle strain of lower leg (S86.919A)If you [...] sign any legal documentsWith: Address: When:Rober Loya [address] [place] [address] Business (2) Within 3 to 5 days, only if neededWith: Address: When:Edward Mcqueen [address] [place] [address] Business (1) Within 3 to 5 daysMedication Information:The exam and treatment you received today in the [facility] were for an urgent problem and are not intended as complete care. It is important for you to follow up with a doctor, nurse practitioner, or physician?s evaluation assistant for ongoing care. If your symptoms [...] we can reach you if necessary.[facility] Urgent Care has provided you with a complete list of medications post discharge. 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 Any specific questions regarding your chronic medications and dosages should be discussed with your primary care physician(s) and/or pharmacist. New MedicationsPrinted Prescriptionsacetaminophen-h ydrocodone (Sealevel 5 mg-325 mg oral tablet) 1 tab(s) [...] Reviewed: 01/21/2014Luz [employer] Interactive Patient Education ?2016 ContraFect. Viruses or BacteriaWhat?s got you sick?Antibiotics only [...] and Prevention March 2014 Normal [facility] Vital Signs Date Time Vital Sign Value Performing Clinician Facility 07-31-2024 10:52-0500 Body height 157.5 cm Crystal Calhoun MD Work Phone: [facility] 07-31-2024 10:52-0500 Body mass index (BMI) [Ratio] 29.07 kg/m2 Crystal Calhoun MD Work Phone: [facility] 07-31-2024 10:52-0500 Body weight 72.12 kg Crystal Calhoun MD Work Phone: [facility] 07-31-2024 10:52-0500 Diastolic blood pressure 82 mm[Hg] Crystal Calhoun MD Work Phone: [facility] 07-31-2024 10:52-0500 Heart rate 73 /min Crystal Calhoun MD Work Phone: [facility] 07-31-2024 10:52-0500 SaO2% (BldA) [Mass fraction] 100 % Crystal Calhoun MD Work Phone: [facility] 07-31-2024 10:52-0500 Systolic blood pressure 110 mm[Hg] Crystal Calhoun MD Work Phone: [facility] 07-16-2024 14:34-0500 Body mass index (BMI) [Ratio] 29.63 kg/m2 Dianne Dang CNM Work Phone: [facility] 07-16-2024 14:34-0500 Body weight 73.48 kg Dianne Dang CNM Work Phone: [facility] 07-16-2024 14:34-0500 Diastolic blood pressure 70 mm[Hg] Dianne Rosaleso CNM Work Phone: [facility] 07-16-2024 14:34-0500 Systolic blood pressure 112 mm[Hg] Dianne Dang CNM Work Phone: [facility] 12-23-2023 15:27-0400 Body height 157.48 cm [facility] 12-23-2023 15:27-0400 Body mass index (BMI) [Ratio] 30.2 kg/m2 [facility] 12-23-2023 15:27-0400 Body weight 74.84 kg [facility] 12-23-2023 15:27-0400 Diastolic blood pressure 78 mm[Hg] [facility] 06-17-2024 15:27-0400 Heart rate 67 /min [facility] 12-23-2023 15:27-0400 Respiratory rate 12 /min [facility] 12-23-2023 15:27-0400 Systolic blood pressure 122 mm[Hg] [facility] 10-14-2021 07:24-0400 Body temperature 97.39 [degF] Bryanna Pool EMERGENCY ROOM SPECIALIST - CNM Work Phone: [facility] [employer] 10-14-2021 07:24-0400 Diastolic blood pressure 75 mm[Hg] Braynna Pool EMERGENCY ROOM SPECIALIST - CNM Work Phone: [facility] 10-14-2021 07:24-0400 Heart rate 67 /min Bryanna Pool EMERGENCY ROOM SPECIALIST - CNM Work Phone: [facility] 10-14-2021 07:24-0400 Respiratory rate 16 /min Bryanna Pool EMERGENCY ROOM SPECIALIST - CNM Work Phone: [facility] 10-14-2021 07:24-0400 Systolic blood pressure 119 mm[Hg] Bryanna Pool EMERGENCY ROOM SPECIALIST - CNM Work Phone: [facility] 10-13-2021 06:01-0400 SaO2% (BldA) [Mass fraction] 96 % Bryanna Pool EMERGENCY ROOM SPECIALIST - CNM Work Phone: [facility] 10-12-2021 10:22-0400 Body mass index (BMI) [Ratio] 52.13 kg/m2 Bryanna Pool EMERGENCY ROOM SPECIALIST - CNM Work Phone: [facility] 10-12-2021 10:22-0400 Body weight 129.28 kg Bryanna Pool EMERGENCY ROOM SPECIALIST - CNM Work Phone: [facility] 10-07-2021 14:56-0400 Diastolic blood pressure 64 mm[Hg] Dianne Floro EMERGENCY ROOM SPECIALIST - CNM Work Phone: [facility] 10-07-2021 14:56-0400 Heart rate 76 /min Dianne Connieo EMERGENCY ROOM SPECIALIST - CNM Work Phone: [facility] 10-07-2021 14:56-0400 Systolic blood pressure 123 mm[Hg] Dianne Rosaleso EMERGENCY ROOM SPECIALIST - CNM Work Phone: [facility] 10-07-2021 14:23-0400 Respiratory rate 18 /min Dianne Rosaleso EMERGENCY ROOM SPECIALIST - CNM Work Phone: [facility] 09-30-2021 14:03-0400 Body height 157.5 cm Dianne Dang EMERGENCY ROOM SPECIALIST - CNM Work Phone: [facility] 09-30-2021 14:03-0400 Body mass index (BMI) [Ratio] 51.58 kg/m2 Dianne Dang EMERGENCY ROOM SPECIALIST - CNM Work Phone: [facility] 09-30-2021 14:03-0400 Body temperature 98.01 [degF] Dianne Rosaleso EMERGENCY ROOM SPECIALIST - CNM Work Phone: [facility] 09-30-2021 14:03-0400 Body weight 127.91 kg Dianne Rosaleso EMERGENCY ROOM SPECIALIST - CNM Work Phone: [facility] 09-23-2021 15:35-0400 Body temperature 98.2 [degF] Dianne Rosaleso EMERGENCY ROOM SPECIALIST - CNM Work Phone: [facility] 09-23-2021 15:35-0400 Diastolic blood pressure 73 mm[Hg] Dianne Rosaleso EMERGENCY ROOM SPECIALIST - CNM Work Phone: [facility] 09-23-2021 15:35-0400 Heart rate 96 /min Dianne Rosaleso EMERGENCY ROOM SPECIALIST - CNM Work Phone: [facility] 09-23-2021 15:35-0400 Respiratory rate 18 /min Dianne Rosaleso EMERGENCY ROOM SPECIALIST - CNM Work Phone: [facility] 09-23-2021 15:35-0400 Systolic blood pressure 118 mm[Hg] Dianne Rosaleso EMERGENCY ROOM SPECIALIST - CNM Work Phone: [facility] 09-16-2021 15:59-0500 Diastolic blood pressure 72 mm[Hg] Dianne Dang APRN - CNM Work Phone: [facility] 09-16-2021 15:59-0500 Heart rate 77 /min Dianne Dang APRN - CNM Work Phone: [facility] 09-16-2021 15:59-0500 Systolic blood pressure 141 mm[Hg] Dianne Dang APRN - CNM Work Phone: [facility] 09-16-2021 14:25-0500 Body height 157.5 cm Dianne Dang APRN - CNM Work Phone: [facility] 09-16-2021 14:25-0500 Body mass index (BMI) [Ratio] 49.38 kg/m2 Dianne Dang APRN - CNM Work Phone: [facility] 09-16-2021 14:25-0500 Body temperature 97.81 [degF] Dianne Dang APRN - CNM Work Phone: [facility] 09-16-2021 14:25-0500 Body weight 122.47 kg Dianne Dang APRN - CNM Work Phone: [facility] 09-16-2021 14:25-0500 Respiratory rate 16 /min Dianne Dang APRN - CNM Work Phone: [facility] 09-09-2021 14:06-0500 Diastolic blood pressure 68 mm[Hg] Dianne Dang APRN - CNM Work Phone: [facility] 09-09-2021 14:06-0500 Heart rate 78 /min Dianne Dang APRN - CNM Work Phone: [facility] 09-09-2021 14:06-0500 Systolic blood pressure 124 mm[Hg] Dianne Dang APRN - CNM Work Phone: [facility] 09-09-2021 14:04-0500 Body height 158.8 cm Dianne Dang APRN - CNM Work Phone: [facility] 09-09-2021 14:04-0500 Body mass index (BMI) [Ratio] 49.5 kg/m2 Dianne Dang EMERGENCY ROOM SPECIALIST - CNM Work Phone: [facility] 09-09-2021 14:04-0500 Body temperature 98.01 [degF] Dianne Dang EMERGENCY ROOM SPECIALIST - CNM Work Phone: [facility] 09-09-2021 14:04-0500 Body weight 124.74 kg Dianne Dang EMERGENCY ROOM SPECIALIST - CNM Work Phone: [facility] 09-09-2021 14:04-0500 Respiratory rate 18 /min Dianne Dang EMERGENCY ROOM SPECIALIST - CNM Work Phone: [facility] 06-14-2021 15:00-0500 Body height 157.48 cm Margie Fish Other [employer] Other 06-14-2021 15:00-0500 Body mass index (BMI) [Ratio] 45.72 kg/m2 Margie Fish Other [employer] Other 06-14-2021 15:00-0500 Body temperature 98.3 [degF] Margie Polina Other [employer] Other 06-14-2021 15:00-0500 Body weight 113.4 kg Margie Fish Other [employer] Other 06-14-2021 15:00-0500 Respiratory rate 18 /min Margieadelia Fish Other [employer] Other 06-14-2021 15:00-0500 SaO2% (BldA) [Mass fraction] 98 % Margie Fish Other [employer] Other Encounters Encounter Date Encounter Type Care Provider Facility Start: 07-31-2024 End: 07-31-2024 Office outpatient visit 15 minutes Nelda Paniagua MD Work Phone: [facility] Comment on above: Palpitations (Primar y Dx); PFO (patent foramen ovale); S/P percutaneous patent foramen ovale closure; TIA (transient ischemic attack) Start: 07-30-2024 End: 07-30-2024 Telephone encounter Emilie Almazan [facility] Start: 07-27-2024 End: 07-28-2024 [facility] Start: 07-16-2024 End: 07-16-2024 Office outpatient visit 15 minutes Dianen L Floro CNM Work Phone: [facility] Comment on above: Inclusion cyst (Prim rajesh Dx) Start: 07-16-2024 End: 07-16-2024 ambulatory DIANNE L FLORO Not Available Start: 07-16-2024 End: 07-16-2024 Bamboo flowsheet Dianne L Floro CNM Work Phone: [facility] Start: 07-16-2024 End: 07-16-2024 Bamboo flowsheet Dianne L Floro CNM Work Phone: [facility] Start: 06-18-2024 ambulatory MICK Willett [facility] Start: 06-17-2024 End: 06-17-2024 Telephone encounter Mick DE LA PAZ Work Phone: [facility] Start: 05-26-2024 End: 06-12-2024 Telephone [facility] Start: 04-27-2024 End: 04-27-2024 ambulatory MICK Willett [facility] Start: 03-23-2024 End: 03-23-2024 [facility] Start: 03-13-2024 End: 03-13-2024 ambulatory Dante DEGROOT [facility] Start: 02-17-2024 End: 02-17-2024 ambulatory P HUMERA DEGROOT [facility] Start: 01-29-2024 End: 01-29-2024 ambulatory BRYCE HEALY [facility] Start: 01-27-2024 End: 01-27-2024 ambulatory DIANNE L FLORO Not Available Start: 01-13-2024 End: 01-13-2024 ambulatory CATA GIANG [facility] Start: 12-29-2023 ambulatory EDWARD Armijo [facility] Start: 12-26-2023 ambulatory MICK WREN [facility] Start: 12-23-2023 End: 12-23-2023 ambulatory [facility] Work Phone: Start: 12-23-2023 End: 12-23-2023 Patient encounter procedure [facility] Work Phone: Start: 12-20-2023 End: 12-20-2023 ambulatory [facility] Start: 12-18-2023 ambulatory EDWARD Armijo [facility] Start: 12-18-2023 Non-patient / Non-visit [facility] [place] Work Phone: Start: 12-17-2023 End: 12-26-2023 Emergency department patient visit EDWARD Armijo [facility] Start: 12-17-2023 Non-patient / Non-visit [facility] Phys[facility] [place] Work Phone: Start: 12-16-2023 End: 12-16-2023 ambulatory DIANNE L CONNIEO Not Available Start: 05-03-2023 End: 05-03-2023 ambulatory Edward Mcqueen Other [employer] Other Start: 05-03-2023 Office outpatient vi sit 15 minutes Edward Mcqueen [facility] Start: 04-23-2023 End: 04-23-2023 ambulatory Edward Mcqueen Other [employer] Other Start: 04-23-2023 Telephone encounter Edward HAJI [facility] Start: 04-22-2023 End: 04-22-2023 ambulatory Edward Mcqueen Other [employer] Other Start: 04-22-2023 Telephone encounter Edward HAJI G [facility] Start: 04-09-2023 End: 04-09-2023 ambulatory Edward Mcqueen Other [employer] Other Start: 04-09-2023 Office outpatient vi sit 15 minutes Edward Mcqueen [facility] Start: 09-20-2022 End: 09-20-2022 ambulatory Edward Mcqueen Other [employer] Other Start: 09-20-2022 Telephone encounter Edward HAJI [facility] Start: 08-29-2022 End: 08-29-2022 ambulatory Edward Mcqueen Other [employer] Other Start: 08-29-2022 Office outpatient vi sit 15 minutes Edward Mcqueen [facility] Start: 08-17-2022 Telephone encounter Edward HAJI [facility] Start: 08-17-2022 End: 08-18-[address] EDWARD MCQUEEN Facility:H1 Start: 08-17-2022 End: 08-18-2022 ambulatory BERTO ZIMMERMAN Facility:H1 Start: 10-12-2021 End: 10-14-2021 Evaluation and management of inpatient [place] Start: 10-12-2021 End: 10-14-2021 Evaluation and management of inpatient [facility]FRED[facility] Work Phone: [facility] Labor [facility] Delivery Comment on above: Born by sec tion (Primary Dx) Start: 10-07-2021 End: 10-07-2021 ambulatory [facility] Start: 10-07-2021 End: 10-07-2021 Subsequent hospital visit by physician Dianne Dang APRN - ELINOR Work Phone: [facility] Labor [facility] Delivery Comment on above: Diet controlled gest ational diabetes mellitus (GDM) in third trimester Start: 09-30-2021 End: 09-30-2021 ambulatory DIANNE CONNIEO [facility] Start: 09-30-2021 End: 09-30-2021 Subsequent hospital visit by physician Dianne Clark CNM [facility] Start: 09-23-2021 End: 09-23-2021 ambulatory DIANNE CONNIEO [facility] Start: 09-23-2021 End: 09-23-2021 Subsequent hospital visit by physician Dianne Clark CNM Work Phone: [facility] Labor [facility] Delivery Comment on above: Diet controlled gest ational diabetes mellitus (GDM) in third trimester Start: 09-16-2021 End: 09-16-2021 ambulatory DIANNE CONNIEO [facility] Start: 09-16-2021 End: 09-16-2021 Subsequent hospital visit by physician Dianne Clark CNM Work Phone: [facility] Labor and Delivery Comment on above: Diet controlled gest ational diabetes mellitus (GDM) in third trimester Start: 09-09-2021 End: 09-09-2021 ambulatory DIANNE CONNIEO [facility] Start: 09-09-2021 End: 09-09-2021 Subsequent hospital visit by physician Dianne Clark CNM Work Phone: [facility] Delivery Comment on above: Diet controlled gest ational diabetes mellitus (GDM) in third trimester Start: 09-02-2021 End: 09-02-2021 ambulatory DIANNE CONNIEO [facility] Start: 06-14-2021 (URG) Urgent Care Visit Margie aguirre [facility] Start: 06-14-2021 End: 06-14-2021 ambulatory Margie Fish Other [employer] Other Start: 04-12-2017 End: 04-12-2017 Ambulatory Bentley Amin Facility:[facility] Procedures Date Procedure Procedure Detail Performing Clinician Start: 07-31-2024 Ecg routine ecg w/le ast 12 lds w/i&r Crystal Calhoun MD Work Phone: Start: 02-17-2024 Follow-up visit Follow-up Dante STEVENSI TAMIKA Start: 10-14-2021 GLUCOSE, WHOLE BLOOD Zoila Dang EMERGENCY ROOM SPECIALIST - CNM Work Phone: Start: 10-13-2021 GLUCOSE, WHOLE BLOOD Zoila Dang EMERGENCY ROOM SPECIALIST - CNM Work Phone: Start: 10-13-2021 GLUCOSE, WHOLE BLOOD Zoila Dang EMERGENCY ROOM SPECIALIST - CNM Work Phone: Start: 10-13-2021 GLUCOSE, WHOLE BLOOD Zoila Dang EMERGENCY ROOM SPECIALIST - CNM Work Phone: Start: 10-13-2021 Assay of magnesium Mendy karo Dang EMERGENCY ROOM SPECIALIST - CNM Work Phone: Start: 10-13-2021 Blood count hemoglobin Dianne Alton EMERGENCY ROOM SPECIALIST - CNM Work Phone: Start: 10-13-2021 GLUCOSE, WHOLE BLOOD Zoila Dang EMERGENCY ROOM SPECIALIST - CNM Work Phone: Start: 10-13-2021 Assay of magnesium Talmage karo Alton EMERGENCY ROOM SPECIALIST - CNM Work Phone: Start: 10-12-2021 GLUCOSE, WHOLE BLOOD Zoila Dang EMERGENCY ROOM SPECIALIST - CNM Work Phone: Start: 10-12-2021 GLUCOSE, WHOLE BLOOD Zoila Dang EMERGENCY ROOM SPECIALIST - CNM Work Phone: Start: 10-12-2021 GLUCOSE, WHOLE BLOOD Zoila Dang EMERGENCY ROOM SPECIALIST - CNM Work Phone: Start: 10-12-2021 Antibody screen Katjadon n Pool EMERGENCY ROOM SPECIALIST - CNM Work Phone: Start: 10-12-2021 Blood typing serolog ic abo Bryanna Armijo Pool EMERGENCY ROOM SPECIALIST - CNM Work Phone: Start: 10-12-2021 End: 04-07-2022 Comprehensive metabolic panel Bryanna Barth EMERGENCY ROOM SPECIALIST - [facility] Work Phone: Start: 10-12-2021 Drug screen class list a Bryanna Barth [facility] Work Phone: Start: 10-12-2021 Urnls dip stick/tabl et rgnt auto w/o microscopy Bryanna Barth [facility] Work Phone: Start: 10-07-2021 nonstress test Va tyler Dang [facility] Work Phone: Start: 09-26-2021 GBS, EXTERNAL RESULT In andrea Purvis MD Start: 09-16-2021 End: 09-16-2021 Comprehensive metabolic panel Ai Burnham [facility] Work Phone: Start: 09-16-2021 nonstress test Zoila Dang [facility] Work Phone: Start: 03-22-2021 ABO, EXTERNAL RESULT Hi debical Provider Start: 03-22-2021 C. TRACHOMATIS, EXTE RNAL RESULT Historical Provider Start: 03-22-2021 HEPATITIS B, EXTERNA L RESULT Historical Provider Start: 03-22-2021 HIV, EXTERNAL RESULT In andrea Provider Start: 03-22-2021 N. GONORRHOEAE, EXTE RNAL RESULT Historical Provider Start: 03-22-2021 RH FACTOR, EXTERNAL RESULT Historical Provider Start: 03-22-2021 RPR, EXTERNAL RESULT In debical Provider Start: 03-22-2021 RUBELLA TITER, EXTER NAL RESULT Historical Provider Start: 07-15-2018 H/O: section History of delivery Nohemy Kingsley RN Start: 03-13-2017 Microscopic observat ion [Identifier] in Cervix by Cyto stain Nohemy Kingsley RN Plan of Treatment Date Care Activity Detail Author Start: 07-30-2028 DTaP,Tdap and Td Vaccines (7 - Td or Tdap) DTaP,Tdap and Td Vaccines (7 - Td or Tdap) [facility] Start: 07-30-2028 DTaP/Tdap/Td vaccine (7 - Td or Tdap) DTaP/Tdap/Td vaccine (7 - Td or Tdap) [facility] Start: 07-31-2025 Adult BMI Screening Adult BMI Screen ing [facility] Start: 07-31-2025 Tobacco Screening Tobacco Screening [facility] Start: 03-23-2025 Adult BMI Screening Adult BMI Screen ing [facility] Start: 03-23-2025 Tobacco Screening Tobacco Screening [facility] Start: 08-27-2024 End: 08-27-2024 Telemedicine consultation with patient 08/27/2024 1:00 PM EST Telemedicine [facility] [address] [place] [phone] [place] [address] [place] [address], [address] [place] [address] [facility] Start: 07-31-2024 End: 07-31-2024 Patient encounter procedure 07/31/2024 11:15 AM EST Office Visit [facility] [address] [place] [phone] Nelda Paniagua MD [address] [place] [address] Crystal Calhoun MD [address] [place] [address] [facility] Start: 07-20-2024 End: 07-20-2024 Patient encounter procedure 07/20/2024 11:30 AM EST Office Visit [facility] [address] [place] [phone] Nelda Paniagua MD [address] [place] [address] [facility] Start: 07-16-2024 End: 07-16-2024 Patient encounter procedure 07/16/2024 2:30 PM EST Office Visit [facility] [address] [place] [address] Dianne Dang CNM [address] [place] [address] Arrived [facility] Comment on above: Arrived Start: 06-17-2024 End: 06-17-2025 Wireless Telemetry (In Office) Wireless Telemetry (In Office) Cardiac Services Routine Palpitations Expected: 06/17/2024, Expires: 06/17/2025 [facility] Work Phone: Comment on above: Expected: 06/17/2024 , Expires: 06/17/2025 Start: 03-08-2024 COVID-19 Vaccine ( season) COVID-19 Vaccine ( season) [facility] Start: 03-08-2024 Influenza vaccination P [facility] Start: 10-12-2022 Creatinine measurement Creatinine mo [facility] Start: 10-12-2022 Potassium monitoring Potassium monit [facility] Start: 03-08-2022 Influenza vaccination Flu vacc ine (Season Ended) [facility] Start: 01-11-2022 Hemoglobin A1c measurement A1C test (Diabetic or Prediabetic) [facility] Start: 10-21-2021 End: 10-21-2021 Patient encounter procedure 10/21/2021 Appointment IP Unit [facility] Start: 10-18-2021 Subsequent hospital visit by physician 10/18/2021 Hospital Encounter Obstetrics and Gynecology Dianne Dang APRN - CNM [address] [place] [address] [facility] Start: 10-17-2021 End: 10-17-2021 [...] LD Start: 2021 Diabetes screen Diabetes screen [facility] Start: 03-08-2021 Influenza vaccination Flu vaccine (# 1) [facility] Start: 03-13-2020 Screening for malign ant neoplasm of cervix [facility] Start: 2016 Screening for malign ant neoplasm of cervix [facility] Start: 2007 Screening for malign ant neoplasm of cervix Pap smear [facility] Start: 2004 Adult BMI Follow Up Plan Adult BMI Follow Up Plan [facility] Start: 2001 HIV screening HIV screen [facility] Start: 1998 Depression Screen Depression Screen [facility] Start: 1998 Depression Screening Depression Scre ening [facility] Start: 1991 COVID-19 Vaccine (1) COVID-19 Vaccin e (1) [facility] Start: 1987 Varicella vaccine (1 of 2 - 2-dose childhood series) Varicella vaccine (1 of 2 - 2-dose childhood series) [facility] Start: 1986 Hepatitis C screening Hepatitis C sc reen [facility] Start: 1986 Tobacco Counseling Tobacco Counselin g [facility] End: 09-09-2021 nonstress test [facility] Phone: Comment on above: 1 Occurrences starti ng 09/09/2021 until 09/09/2021 As Needed for 8 Occu rrences starting 09/09/2021 End: 09-23-2021 nonstress test nonstress test OB Routine Diet controlled gestational diabetes mellitus (GDM) in third trimester 1 Occurrences starting 09/23/2021 until 09/23/2021 [employer] Phone: Comment on above: 1 Occurrences starti ng 09/23/2021 until 09/23/2021 End: 10-13-2021 Glucose [Mass/volume] in Serum or Plasma Glucose, Random Lab Timed Tomorrow AM for 1 Occurrences starting 10/13/2021 until 10/13/2021 [employer] Phone: Comment on above: Tomorrow AM for 1 Oc currences starting 10/13/2021 until 10/13/2021 Glucose [Mass/volume ] in Serum or Plasma [employer] Phone: Comment on above: 4X Daily (AC & HS) u ntil discontinued starting 10/12/2021 As Needed until disc ontinued starting 10/12/2021 End: 10-19-2021 Magnesium [Mass/volume] in Serum or Plasma Magnesium Lab Routine Every 6 Hours (Lab) for 7 Days starting 10/12/2021 until 10/19/2021, 3 completed [employer] Phone: Comment on above: Every 6 Hours (Lab) for 7 Days starting 10/12/2021 until 10/19/2021, 3 completed Nonrebreather mask oxygen Nonrebreather mask oxygen Respiratory Care Routine As directed - RT (PRN) until discontinued starting 10/12/2021 [employer] Phone: Comment on above: As directed - RT (HI N) until discontinued starting 10/12/2021 Oxygen therapy [[facility] Data Set] Initiate Oxygen Therapy Protocol Respiratory Care Routine As Needed until discontinued starting 10/12/2021 [employer] Phone: Comment on above: As Needed until disc ontinued starting 10/12/2021 Spirometry panel Incentive itz metry Respiratory Care Routine Every 2hr while awake until discontinued starting 10/12/2021 [employer] Phone: Comment on above: Every 2hr while awak e until discontinued starting 10/12/2021 End: 10-12-2021 Surgical Pathology Surgical Pathology Lab Routine One Time for 1 Occurrences starting 10/12/2021 until 10/12/2021 [employer] Phone: Comment on above: One Time for 1 Occur rences starting 10/12/2021 until 10/12/2021 End: 10-12-2021 SURGICAL PATHOLOGY REPORT SURGICAL PATHOLOGY REPORT Lab Routine Once for 1 Occurrences starting 10/12/2021 until 10/12/2021 [employer] Phone: Comment on above: Once for 1 Occurrenc es starting 10/12/2021 until 10/12/2021 End: 10-13-2021 SURGICAL PATHOLOGY REPORT SURGICAL PATHOLOGY REPORT Lab Routine Once for 1 Occurrences starting 10/13/2021 until 10/13/2021 [employer] Phone: Comment on above: Once for 1 Occurrenc es starting 10/13/2021 until 10/13/2021 Immunizations Immunization Date Immunization Notes Care Provider Fa cility 10-12-2021 diphtheria, tetanus toxoids and acellular pertussis vaccine, unspecified formulation Bryannaconchis Barth EMERGENCY ROOM SPECIALIST - CN Work Phone: [employer] Phone: 10-12-2021 measles, mumps and rubella virus vaccine Bryanna Pool EMERGENCY ROOM SPECIALIST - [facility] Work Phone: [employer] Phone: 07-30-2018 tetanus toxoid, redu sana diphtheria toxoid, and acellular pertussis vaccine, adsorbed Nohemy Kingsley RN [facility] 03-26-2013 influenza virus vaccine, unspecified formulation Nohemy Kingsley RN [facility] Payers Date Payer Category Payer [facility] [id number] 2023 [employer] Blue Shie [employer] Managed Care - Other [employer] [id number] 2023 Unknown [id number] 2014 Unknown [id number] 1986 Unknown [id number] 2.16.840.1.415970.3.579. 2.173 1986 Unknown [id number] 2.16.840.1.923596.3.579. 2.173 1986 Unknown [id number] 2.16.840.1.250501.3.579. 2.173 1986 Unknown [id number] 2.16.840.1.597235.3.579. 2.173 1986 Unknown [id number] 2.16.840.1.469554.3.579. 2.173 1986 Unknown [id number] 2.16.840.1.183327.3.579. 2.173 1986 Unknown [id number] 2.16.840.1.227960.3.579. 2.173 1986 Unknown [id number] 2.16.840.1.306410.3.579. 2.593 1986 Unknown [id number] 2.16.840.1.475889.3.579. 2.593 1986 Unknown [id number] 2.16.840.1.487282.3.579. 2.1285 1986 Unknown [id number] 2.16.840.1.691830.3.579. 2.1286 1986 Unknown [id number] 2.16.840.1.971561.3.579. 2.1285 1986 Unknown [id number] 2.16.840.1.509909.3.579. 2.1285 1986 Unknown [id number] 2.16.840.1.815667.3.579. 2.1285 1986 Unknown [id number] 2.16.840.1.240358.3.579. 2.1285 1986 Unknown [id number] 2.16.840.1.846569.3.579. 2.1285 1986 Unknown [id number] 2.16.840.1.221786.3.579. 2.1285 1986 Unknown [id number] 2.16.840.1.414155.3.579. 2.1285 1986 Unknown [id number] 2.16.840.1.408143.3.579. 2.1285 1986 Unknown [id number] 2.16.840.1.556316.3.579. 2.1285 1986 Unknown [id number] 2.16.840.1.601169.3.579. 2.1285 1986 Unknown [id number] 2.16.840.1.671610.3.579. 2.1285 1986 Unknown [id number] 2.16.840.1.360257.3.579. 2.1285 1986 Unknown [id number] 2.16.840.1.615795.3.579. 2.1285 1986 Unknown [id number] 2.16.840.1.428910.3.579. 2.1259 1986 Unknown [id number] 2.16.840.1.569517.3.579. 2.1259 1986 Unknown [id number] 2.16.840.1.167132.3.579. 2.1259 1959 Private Health Insurance [id number] 1.2.840.152610.1.13.239. 2.7.3.647766.315 Self-pay Self Pay [id number] Social History Date Type Detail Facility Start: 04-19-2021 End: 03-23-2024 Tobacco smoking status NHIS Never smoked tobacco [facility] [employer] Other Start: 04-19-2021 End: 12-16-2023 Tobacco use and exposure Smokeless tobacco non-user [employer] Phone: Start: 09-09-2021 End: 07-31-2024 Alcohol intake Ex-drinker (finding) [employer] Phone: Start: 01-31-2021 [facility] Phone: Start: 1985 Sex Assigned At Not on file [employer] Phone: Start: 09-13-2021 End: 10-12-2021 Exposure to SARS-CoV-2 (event) Not sure [employer] Start: 08-18-2020 End: 03-23-2024 Sex Assigned At [facility] [employer] Other Start: 1985 Sex Assigned At Female [facility] Start: 03-23-2024 Tobacco use and exposure User of smokeless tobacco [employer] Start: 08-18-2020 End: 03-23-2024 History of Social function [facility] Unknown [employer] [facility] Start: 03-23-2024 Tobacco Comment Nicotine pouch , occasionally. [facility] Start: 02-10-2015 Sex Female (finding) [facility] Start: 01-27-2024 End: 07-16-2024 Alcoholic beverage intake Current drinker of alcohol (finding) [facility] Procedure Code Equipment Code Equipment Origin al Text Equipment Identifier Dates Occluder Cv Rt A tr Disc 25mm Lt Atr Disc 18mm Rcmd Shth 8f [facility] [id number] - [id number] Start: 03-13-2024 Clinical Notes 06-14-2021 to 07-31-2024 Crystal Calhoun MD - 07/31/2024 11:15 AM ESTTelephone Encounter - Emilie Almazan, FRANSICO - 07/30/2024 10:01 AM ESTTelephone Encounter - Emilie Almazan, SALVAGE MACHINE OPERATOR - 07/30/2024 10:01 AM EST Note Date & Type Note Facility 07-31-2024 History of Presen t illness Narrative Solange Lucas Date of visit: 07/31/2024 Date of : 1985 Age: 39 y.o. Patient Active Problem List Diagnosis Acne Abnormal facial hair Gestational diabetes mellitus History of delivery Encounter for sterilization BMI 50.0-59.9, adult ([facility]) Gestational hypertension, third trimester Intrauterine PFO (patent foramen ovale) TIA (transient ischemic attack) Allergies Allergen Reactions Penicillin G Hives Penicillins Hives Current Outpatient Medications Medication Sig Dispense Refill aspirin 81 mg chewable tablet Chew 1 tablet (81 mg total) and swallow in the morning. clopidogreL (PLAVIX) 75 mg tablet Take 1 tablet (75 mg total) by mouth in the morning. 30 tablet 6 buPROPion (WELLBUTRIN) 75 mg tablet Take 1 tablet (75 mg total) by mouth in the morning and 1 tablet (75 mg total) before bedtime. (Patient not taking: Reported on 07/31/2024) No current facility-administered medications for this visit. Chief Complaint Patient presents with Follow-up ov palps f/u mcot sched w-pt History of Present Illness 39-year-old with status post closure of PFO by structural heart colleagues after symptoms of TIA in the past. She continued to follow with the Neurology she continued to do well with aspirin Plavix. She did have some palpitations and event monitor was done and no AFib was recorded at any time. She exercises. Had an episode of lightheadedness when she had a lot of coffee and also alcohol use at 1 point and was dehydrated since then has done quite well. Past Medical History: Diagnosis Date Abnormal Pap smear of cervix Anxiety Atrial septal defect Gestational diabetes mellitus Hypertension Migraines Morbid obesity (CMS-HCC) Panic attacks PFO (patent foramen ovale) Sprain of ankle, right TIA (transient ischemic attack) Tobacco abuse No data recorded No data recorded No data recorded Past Surgical History: Procedure Laterality Date BACK SURGERY 2008 disc shaved (bulging) and fused 2 of them together Was in college REPEAT WITH IUD INSERTION N/A 07/29/2018 Performed by Benita Sarabia MD at [facility] OR SECTION W/ TUBAL LIGATION 10/12/2021 COLPOSCOPY Intracardiac echocardiogram N/A 03/13/2024 Performed by Dante Degroot MD at [facility] PATENT FORAMEN OVALE CLOSURE 03/13/2024 Patent foramen ovale closure with cath/patch/ICE N/A 03/13/2024 Performed by Dante Degroot MD at [facility] TONSILLECTOMY Family History Problem Relation Age of Onset Diabetes Mother Diabetes Father Depression Father Hypertension Father Asthma Sister Atrial fibrillation Brother Diabetes Maternal Grandmother Heart disease Maternal Grandfather Heart disease Paternal Grandmother Social History Socioeconomic History Marital status: Spouse name: Not on file Number of children: Not on file Years of education: Not on file Highest education level: Not on file Occupational History Not on file Tobacco Use Smoking status: Never Smokeless tobacco: Current Tobacco comments: Nicotine pouch, occasionally. Substance and Sexual Activity Alcohol use: Not Currently Drug use: No Sexual activity: Yes Partners: Male control/protection: None Other Topics Concern Caffeine Use No Social History Narrative Not on file Social Drivers of Health Financial Resource Strain: Not on file Food Insecurity: No Food Insecurity (07/31/2024) Hunger Screening Food Insecurity - Worry: Never True Food Insecurity - Inability: Never True Transportation Needs: Not on file Physical Activity: Not on file Stress: Not on file Social Connections: Not on file Interpersonal Safety: Unknown (12/18/2023) Received from [facility] [place] [facility] Fear of Current or Ex-Partner: Not on file Emotionally Abused: Not on file Physically Abused: Not on file Sexually Abused: Not on file Physically or Sexually Abused: Not on file Housing Instability: Not on file Review of Systems Review of Systems Constitutional: Negative. HENT: Negative. Eyes: Negative. Cardiovascular: Negative. Respiratory: Positive for shortness of breath. Endocrine: Negative. Hematologic/Lymphatic: Bruises/bleeds easily. Skin: Negative. Musculoskeletal: Negative. Gastrointestinal: Negative. Neurological: Positive for dizziness and light-headedness. Psychiatric/Behavioral: The patient is nervous/anxious. Allergic/Immunologic: Negative. Vascular: Negative. CARDIOVASCULAR: Please review HPI. Physical Examination General appearance: Alert, oriented and cooperative. In no acute distress. Skin: Warm and dry to touch. Head: Normocephalic, without obvious abnormality, atraumatic. Neck: No JVD, No carotid bruit. Neck supple, trachea midline. Respiratory: Clear to auscultation bilaterally, no use of accessory muscles. Cardiovascular: RRR with normal S1 and S2 with no murmurs. Psychiatric: Appropriate mood, memory and judgement. VITAL SIGNS: BP 110/82 (BP Site: Left Arm, BP Postition: Sitting) Pulse 73 Ht 157.5 cm (5' 2.01 ) Wt 72.1 kg (159 lb) SpO2 100% BMI 29.07 kg/m No orders of the defined types were placed in this encounter. There are no discontinued medications. IMPRESSIONS/PLAN There are no diagnoses linked to this encounter. 1. Palpitations without significant arrhythmia noted and no evidence of atrial fibrillation. 2. History of TIA and status post closure of PFO uneventfully. Will be happy to see her back sooner if needed. TODAYS ORDERS No orders of the defined types were placed in this encounter. FOLLOW UP No follow-ups on file. PCP: EDWARD MCQUEEN DO Referring Physician: Edward Mcqueen DO [address] [place] [address] documented in this encounter [facility] 07-30-2024 Miscellaneous Notes Called patient to remind them to bring their most current copy of their medication list with them to their appt. Patient verbalizes understanding. documented in this encounter [facility] 07-30-2024 Telephone encounter Note Called patient to remind them to bring their most current copy of their medication list with them to their appt. Patient verbalizes understanding. [facility]24 Miscellaneous Notes Called patient to offer earlier availability on 08/04. Pt was not available; LVM to call back. Appointment no longer available. documented in this encounter [facility] 07-27-2024 Telephone encounter Note Called patient to offer earlier availability on 08/04. Pt was not available; LVM to call back. [facility] 07-27-2024 Telephone encounter Note Appointment no longer available. [facility] 07-16-2024 History of Presen t illness Narrative Images from the original note were not included. PROBLEM VISIT Solange Lucas is 39 y.o. a patient of [facility] BLAST[facility] Here for growth by her rectum Last pap: 12/16/23 Last mammogram: Patient's last menstrual period was 07/07/2024 (exact date). History: History reviewed. No pertinent past medical history. Past Surgical History: Procedure Laterality Date SECTION, LOW TRANSVERSE x3 GASTRIC BYPASS 2022 Family History Problem Relation Name Age of Onset Diabetes type II Mother Diabetes type II Father @SOCX@ Allergies: Allergies Allergen Reactions Penicillin G Hives Penicillins Hives Medications: Current Outpatient Medications on File Prior to Visit Medication Sig Dispense Refill aspirin 81 MG EC tablet Take 81 mg by mouth in the morning. clopidogrel (Plavix) 75 MG tablet Take 75 mg by mouth Daily ferrous sulfate 325 (65 Fe) MG tablet Take 65 mg by mouth in the morning. Take with meals. [DISCONTINUED] atorvastatin (Lipitor) 20 MG tablet Take 20 mg by mouth in the morning. [DISCONTINUED] buPROPion (Wellbutrin) 100 MG tablet Take 50 mg by mouth in the morning and 50 mg before bedtime. No current facility-administered medications on file prior to visit. There were no vitals filed for this visit. HPI: ROS: Review of Systems Physical exam: Physical Exam Genitourinary: Comments: Small inclusion cyst at 7:00 o'clock near anus. Did not express it today as patient states it's getting smaller. No edema, bleeding, discharge noted Assessment and Plan: There are no diagnoses linked to this encounter. Inclusion cyst noted. Patient will call or return for an appt if it changes, gets larger or becomes painful. No follow-ups on file. There are no Patient Instructions on file for this visit. Emilie Leone MA,07/16/2024 2:41 PM documented in this encounter [facility] 06-17-2024 Miscellaneous Notes Pt called in to [facility] stating last night around 9:30pm she could feel her heart racing and she did not feel right. She didn't think too much off it and went to bed. She said her fit bit stated signs of AFIB were detected and hear heart rate ranged from 44-180. Today she feels okay just tired. Sending message to PKR for recommendations. Let's get angela 2 weeks Have her seen in [facility] Called and spoke to pt with PKR recommendations. Pt v/u. Angela ordered and scheduled next avail appt at [facility]. documented in this encounter [facility] 06-17-2024 Telephone encounter Note Pt called in to [facility] stating last night around 9:30pm she could feel her heart racing and she did not feel right. She didn't think too much off it and went to bed. She said her fit bit stated signs of AFIB were detected and hear heart rate ranged from 44-180. Today she feels okay just tired. Sending message to PKR for recommendations. [facility] 06-17-2024 Telephone encounter Note Let's get mcot 2 weeks Have her seen in [facility] 06-17-2024 Telephone encounter Note Called and spoke to pt with PKR recommendations. Pt v/u. Mcot ordered and scheduled next avail appt at [facility]. [facility] [employer] 05-26-2024 Miscellaneous Notes Per June 2024 recall, patient is due for follow up with Dr. Healy. Please call and schedule patient. Spoke with patient and scheduled appt documented in this encounter [facility] 05-26-2024 Telephone encounter Note Per June 2024 recall, patient is due for follow up with Dr. Healy. Please call and schedule patient. [facility] [employer] 05-26-2024 Telephone encounter Note Spoke with patient and scheduled appt [facility] 12-20-2023 Note [place] [facility] Subjective Solange Lucas is a 38 y.o. year old female [...] hair Acne Antepartum hypertension BMI 50.0-59.9, adult ([facility]) Encounter for sterilization Gestational hypertension, third trimester [...] she was admitted to the [facility] after sustaining right arm weakness, difficulty speaking and facial droop. The symptoms resolved within 10 to 15 minutes of onset. During the symptoms, she FaceTime her mother who is a nurse and explained to her what was happening and she was taken to the emergency room at the [facility] where she was admitted and investigation [...] saline contrast injections show evidence of significant nrgtu-lb-vkdf shunt at the interatrial septal level at [...] Conge (more content not included)... [facility] 05-03-2023 Evaluation note Encounter Date Diagnosis [...] disorder, 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) [employer] Other 10-16-2023 Evaluation note* Encounter Date Diagnosis Assessment Notes Treatment Notes Treatment Clinical Notes Apr, Mild episode of recurrent major depressive disorder (ICD-10 - F33.0) [employer] Other 10-03-2023 Evaluation note* Encounter Date Diagnosis [...] Treat underlying condition and insomnia should improve [employer] Other 02-22-2023 Evaluation note* Encounter Date Diagnosis Assessment Notes Treatment Notes Treatment Clinical Notes Aug, Pharyngitis due to Streptococcus species (ICD-10 - J02.0) Gargle w/ salt water, tylenol and rest [employer] Other 04-09-2022 History of Present illness Narrative* Dianne Dang APRN - ELINOR - 10/14/2021 8:56 AM EDT C/S Labor [...] Message received from ADELA Caceres who is educational fundraising director today that my patient has arrived to the unitand she has elevated blood pressures. Hypertension protocol being started and Dr Panda would like to proceed with her repeat section soon. 0983 this write leaves my office and enroute to [place], documented in [facility] [employer] Work Phone: 1(252) 549-275403-19-2022 History of Present illness Narrative* Shanel Raymundo RN - 09/23/2021 3:40 PM EDT Pt here for scheduled NST. Pt states she is insulin controlled gestational diabetic and [facility]. Pt reports + movement today. Pt denies vaginal bleeding or leaking offluid. Pt states that she sometimes has back pain if she stands for too long, pt denies pain currently. Pt denies pain or burning when urinating. Pt denies headache or blurred vision. marker button given. documented in this [facility] Phone: [phone]) 713-376112-08-2021 Evaluation note* Encounter Date Diagnosis Assessment Notes [...] Patient care instructions given in writting by [facility] Care At Home document. [employer] Other Evaluation note* Diagnosis Diet controlled gestational diabetes mellitus (GDM) in third trimester documented in this encounter [employer] Phone: [email or web address] note* Diagnosis Diet controlled gestational diabetes mellitus (GDM) in third trimester documented in this encounter [employer] Phone: [email or web address] note* Diagnosis Diet controlled gestational diabetes mellitus (GDM) in third trimester documented in this encounter [employer] Phone: evaluation note* Diagnosis Diet controlled gestational diabetes mellitus (GDM) in third trimester documented in this encounter [employer] Phone: [email or web address] note* Diagnosis Abdominal pain- Primary Abdominal pain, unspecified site Born by section Hypertension affecting in first trimester Hypertension affecting in third trimester documented in this encounter [employer] Phone: [email or web address] noteNo [employer] Other Evaluation note* Diagnosis Onset Date Resolution Status Anemia acute PFO (patent foramen ovale) a cute TIA (transient ischemic attack) acute Type 2 diabetes mellitus with hyperglycemia acute [facility] Work Phone: Evaluation note* Diagnosis Palpitations- Primary documented in this encounter [facility] SystemEvaluation note* Diagnosis Inclusion cyst- Primary Sebaceous cyst documented in this encounter [facility]* Diagnosis Palpitations- Primary PFO (patent foramen ovale) Ostium secundum type atrial septal defect S/P percutaneous patent foramen ovale closure Other postprocedural status TIA (transient ischemic attack) Unspecified transient cerebral ischemia documented [facility] this encounter [facility] Narrative - Reported* Type Description Date Medical History anxiety Surgical History back surgery Surgical History tonsillectomy Surgical History C section Surgical History PE tubes Surgical History adnoidectomy Hospitalization History child [employer] Other History general Narrative - Reported* Type [...] Hospitalization History child Hospitalization History SEE SURGICAL [employer] Other Hisrqwn general Narrative - Reported* Type Description Date [...] Hospitalization History child Hospitalization History SEE SURGICAL [employer] Other Hospital Discharge instructions* Attachments The following attachments cannot be sent through Care Everywhere. * Section: Post-op (Surinamese) * (Surinamese) * Video: Caring for Yourself After Delivery (Surinamese) * : Exercises (Surinamese) * Depression: (Surinamese) * Parenting: Stress and Infants (Surinamese) [facility] Work Phone: InstructionsNot on filedocumented in this encounter [facility] System[facility]ructionsNot on filedocumented in this encounter [facility] SystemInstructionsNot on filedocumented in this encounter [facility] SystemInstructionsNot on filedocumented in this encounter [facility] System Summary Purpose Family History Relationship Condition Age at Onset Recorded Date/T eladio Not Specified Diabetes mellitus Unknown Advance Directives Latest Code Status on File [...] section and content) DATE CREATED AUTHOR 12/31/2017 [facility] DATE CREATED AUTHOR AUTHOR'S ORGANIZ ATION 05/15/2021 [facility] DATE CREATED AUTHOR AUTHOR'S ORGANIZ ATION 06/21/2021 [facility] DATE CREATED AUTHOR AUTHOR'S ORGANIZ ATION 09/27/2021 [facility] dical Specialist DATE CREATED AUTHOR AUTHOR'S ORGANIZ ATION 10/16/2021 [facility] DATE CREATED AUTHOR AUTHOR'S ORGANIZ ATION 08/28/2022 [facility] DATE CREATED AUTHOR AUTHOR'S ORGANIZ ATION 12/21/2023 [facility] DATE CREATED AUTHOR AUTHOR'S ORGANIZ ATION 02/26/2024 [facility] DATE CREATED AUTHOR AUTHOR'S ORGANIZ ATION 04/28/2024 [facility] DATE CREATED AUTHOR AUTHOR'S ORGANIZ ATION 06/21/2024 [facility] DATE CREATED AUTHOR AUTHOR'S ORGANIZ ATION 07/21/2024 [facility] dical Specialists EPIC Reason for Visit (unrecogniz ed section and content) Reason Comments Non-stress Test Reason Comments Abdominal Pain Specialty Diagnoses / Procedures Referred By Leila virgen Referred To Contact Diagnoses Abdominal pain Hypertension affecting in first trimester Hypertension affecting in third trimester Bryanna Barth EMERGENCY ROOM SPECIALIST - CNM [address] [facility] [address] [place] [address] [facility] [id number] [place] [address] Referral ID Status Reason Start Date Expiration Date Visits Re quested Visits Authorized 1 1 Reason Comments Follow-up ov palps f/u mcot sc hed w-pt Care Teams (unrecognized sec tion and content) Water Conservation Specialist Relationship Specialty Start Date End Date Edward Mcqueen, DO [address] [place] [address] PCP - General Internal Medicine 06/21/21 Water Conservation Specialist Relationship Specialty Start Date End Date Edward Mcqueen, DO [address] [place] [address] PCP - General Internal Medicine 06/21/21 Water Conservation Specialist Relationship Specialty Start Date End Date Edward Mcqueen, DO [address] [place] [address] PCP - General Internal Medicine 06/21/21 Water Conservation Specialist Relationship Specialty Start Date End Date Edward Mcqueen, DO [address] [place] [address] PCP - General Internal Medicine 06/21/21 Water Conservation Specialist Relationship Specialty Start Date End Date Edward Mcqueen, DO [address] [facility] [place] [address] PCP - General Internal Medicine 06/21/21 Water Conservation Specialist Relationship Specialty Start Date End Date Edward Mcqueen, DO [address] [place] [address] PCP - General Internal Medicine 06/21/21 Team Status: Active Member Role Status Dates Edward Mcqueen DO Primary Care Provider Active Team Status: Active Member Role Status Dates Edward Mcqueen DO Primary Care Provider Active Start: December 17, 2023 Nathanael Flood DO Attending Provider Active Start : December 17, 2023 Team Status: Active Member Role Status Dates Edward Mcqueen DO Primary Care Provide r, Attending Provider Active Start: December 18, 2023 Team Status: Inactive Member Role Status Dates Edward Mcqueen DO Primary Care Provide r, Attending Provider Active Start: December 23, 2023 End: December 23, 2023 Water Conservation Specialist Relationship Specialty Start Date End Date Edward Mcqueen DO [address] [place], [place] [id number] PCP - General Internal Medicine 05/19/18 Water Conservation Specialist Relationship Specialty Start Date End Date Edward Mcqueen DO [address] [place], [place] [id number] PCP - General Internal Medicine 05/19/18 Water Conservation Specialist Relationship Specialty Start Date End Date Edward Mcqueen DO [address] [place] [id number] PCP - General Internal Medicine 05/19/18 Water Conservation Specialist Relationship Specialty Start Date End Date Edward Mcqueen DO [address] [place] [id number] PCP - General Internal Medicine 05/19/18 Ordered Prescriptions (unrec ognized section and content) [...] (Stopped - Provider: Ruben Mccabe APRN - USER INTERFACE DEVELOPER) docusate sodium (COLACE) capsule 100 mg 100 mg, Oral, 2 TIMES DAILY, First dose on Denisha 10/12/21 at 1345, Until Discontinued, Do not crush or break., 1410 (Given - Provider: Milla Davis RN)2151 (Given - Provider: Lilo Kulkarni RN) 0807 (Given - Provider: Nohemy Nuñez RN)2047 (Given - Provider: Elif Prince, SHANON) 0930 (Given - Provider: Leda Glez RN)2100 (Due) enoxaparin (LOVENOX) injection 60 mg 60 mg, SubCUTAneous, EVERY 24 HOURS, First dose on Sat10/13/21 at 0130, Until Discontinued, 0112 (Given - Provider: Lilo Kulkarni RN) 0151 (Given - Provider: Elif Prince, SHANON) famotidine (PEPCID) 20 mg in sodium chloride [...] Bag - Provider: Ruben Mccabe APRN - USER INTERFACE DEVELOPER - Comment: given over 60 minutes.) [...] POCT 229) 2047 (Given - Provider: Elif Prince, SHANON) 2100 (Due) insulin lispro (HUMALOG) injection vial [...] Denisha 10/12/21 at 1400, Last dose on Sat10/15/21 at [...] Surgical Prophylaxis 2151 (Given - Provider: Lilo Kulkarni, SHANON) 0625 [...] Reason: Other - Comment: IV removed)2100 (Due) swmukqs-zyauuf-ojiqk pertussis (BOOSTRIX) injection 0.5 mL 0.5 mL, [...] (NoRateChange - Provider: Ruben Mccabe APRN - USER INTERFACE DEVELOPER) lactated ringers infusion IntraVENous, at 50 mL/hr, CONTINUOUS, Starting on Denisha 10/12/21 at 1345, 1256 (Rate/Dose Change - Provider: Milla Davis RN)2150 (Rate/Dose Change - Provider: Lilo Kulkarni RN)2245 (Rate/Dose Change - Provider: Lilo Kulkarni RN) 0522 (Rate/Dose Change - Provider: Lilo Kulkarni RN) 1127 (Stopped - Provider: Leda Glez RN) magnesium sulfate (84655 mg/500mL infusion) (CANCELED) 2,000 mg/hr (50 mL/hr), [...] (NoRateChange - Provider: Ruben Mccabe APRN - USER INTERFACE DEVELOPER) magnesium sulfate (01824 mg/500mL infusion) () 1,000 mg/hr (25 mL/hr), [...] IntraVENous, EVERY 6 HOURS PRN, Starting on Sat10/12/21 at 1323, Until Discontinued, Itching, Hives, glucagon (rDNA) injection 1 mg 1 mg, IntraMUSCular, PRN, Starting on Sat10/12/21 at 1458, Until Discontinued, Low blood sugar, Blood glucose less than 70 mg/dL and patient NOT ALERT or NPO and does not have IV access., After administration, attempt intravenous access and start D5W at 100 mL/hr. Repeat blood glucose in 15 minutes x2 and notify provider. glucose (GLUTOSE) 40 % oral gel 15 g 15 g, Oral, PRN, Starting on Sat10/12/21 at 1458, Until Discontinued, Low blood sugar, [...] PRN, Dry Skin, nipple discomfort, Starting on Sat10/12/21 at 1323, Post-op measles, mumps & rubella vaccine (MMR) injection 0.5 mL 0.5 mL, SubCUTAneous, PRN, 1 dose, Starting on Sat10/12/21 at 1323, Until Discontinued, if non immune or equivical, methylergonovine (METHERGINE) injection 200 mcg 200 mcg, IntraMUSCular, PRN, Starting on Sat10/12/21 at 1323, Until Discontinued, Bleeding, PRN for post- hemorrhage, if not hypertensive., miSOPROStol (CYTOTEC) tablet 800 mcg 800 mcg, Rectal, PRN, 1 dose, Starting on Sat10/12/21 at 1323, Until Discontinued, Post- Hemorrhage, Notify [...] RN) 1041 (Given - Provider: Nohemy Nuñez RN)2047 (Given - Provider: Elif Prince, SHANON) oxyCODONE-acetaminophen (PERCOCET) 5-325 MG per tablet 2 tablet(Linked Group 1) Mg/kg dosing is based on the oxycodone component., 2 tablet, Oral, EVERY 4 HOURS PRN, Starting on Denisha 10/12/21 at 1323, Until Discontinued, Pain Severe (7-10), Maximum dose of acetaminophen is 4000 mg from all sources in 24 hours., 1700 (See Alternative - Provider: Milla Davis, SHANON) 1041 (See Alternative - Provider: Nohemy Nuñez, [...] Milla Davis RN)2136 (Stopped - Provider: Lilo Kulkarni, SHANON) 1128 (Stopped - Provider: Leda Glez RN) [...] BE BASED ON THE PRIMARY CLINICAL RECORDS. [facility] [employer] [facility]. provides no warranty or guarantee of the accuracy or completeness of information in this document.
--- NOTE | 2024-08-17 19:47 | ECG_ITS ---
[facility] Test Date: 2024-08-17 Pat Name: SOLANGE MURPHY Department: Room: - Gender: Female Box Icer: : 1985 Requested By: NELLIE MCQUEEN Order Number: [id number] Reading MD: NELLIE MCQUEEN Measurements Intervals [place] Rate: 58 P: 57 MI: 184 QRS: 70 QRSD: 74 T: 56 QT: 400 QTc: 397 Interpretive Statements 1100 Sinus rhythm 1570 with occasional ventricular premature complexes 8102 Low QRS voltage in chest leads 9140 abnormal rhythm ECG Electronically Signed On 08-18-2024 6:57:35 EST by NELLIE MCQUEEN
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
[2024-08-17 20:13] LABS: Basophils Percent Auto 0.4 % (0.2-2.0); Eosinophils Percent Auto 0.4 % (0.9-7.0); Hematocrit 30.6 % (36.0-48.0); Immature Granulocytes Abs Auto 0.01 10^3/uL (0.00-0.03); Immature Granulocytes Pct Auto 0.2 % (0.0-0.5); Lymphocytes Absolute Auto 2.6 10^3/uL (1.2-3.8); Lymphocytes Percent Auto 55.1 % (20.5-60.0); Mean Corpuscular HGB Conc 29.4 g/dL (29.9-35.2); Mean Corpuscular Hemoglobin 21.2 pg (26.7-34.0); Mean Platelet Volume 10.7 fL (9.5-13.5); Monocytes Absolute Auto 0.3 10^3/uL (0.3-0.8); Monocytes Percent Auto 6.2 % (1.7-12.0); Neutrophils Absolute Auto 1.8 10^3/uL (1.4-6.5); Neutrophils Percent Auto 37.7 % (43.0-75.0); Platelet Count 207 10^3/uL (150-450); Red Blood Count 4.25 10^6/uL (4.20-5.40); Red Cell Distribution Width 18.3 % (11.0-15.0); White Blood Count 4.7 10^3/uL (4.0-11.0)
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
[2024-08-17 20:23] LABS: Anion Gap 10.8; BUN Creatinine Ratio 16.7; Calcium 7.9 mg/dL (8.5-10.1); Carbon Dioxide 29.6 mmol/L (21.0-32.0); Chloride 104 mmol/L (98-107); Estimated GFR (African America >60 (>=60 mL/min/1.73m^2); Estimated GFR (Non-African Ame >60 (>=60 mL/min/1.73m^2); Glucose 105 mg/dL (74-106); Potassium 3.4 mmol/L (3.5-5.1); Sodium 141 mmol/L (136-145)
[2024-08-17 20:26] LABS: Influenza Virus A Antigen Negative; Influenza Virus B Antigen Negative; Internal Control Within Normal Limits
== END 2024-08-17 21:51 | disposition home or self-care (01) ==
PROVIDERS: Emergency Provider Emergency Medicine; PCP Internal Medicine
DX: S09.8XXA Other specified injuries of head, initial encounter (principal); R55 Syncope and collapse; Z98.51 Tubal ligation status; Z98.84 Bariatric surgery status; F17.200 Nicotine dependence, unspecified, uncomplicated; X58.XXXA Exposure to other specified factors, initial encounter
CPT/HCPCS: 36415; 70450; 80048; 85025; 87804; 93005; 99285

== ENCOUNTER 2024-08-31 14:37 | Outpatient (OUT) | payer BC, SELFPAY ==
--- OUTSIDE RECORDS SUMMARY | 2024-08-31 14:46 | XMS_ITS | CCD ---
Author Organization [facility] CliniSynv Care Team Providers Care Sap Pi Architect Name Role Phone Bentley Amin Unavailable Unavailable Bentley Amin Unavailable Unavailable Edward Mcqueen Unavailable Unavailable Edward Mcqueen DO Primary Care Provider FLORO, DIANNE Admitting Unavailable FLORO, DIANNE Attending Unavailable EDWARD MCQUEEN E Primary Care Unavailable FLORO, DIANNE Admitting Unavailable FLORO, DIANNE Attending Unavailable EDWARD MCQUEEN E Primary Care Unavailable FLORO, DIANNE Admitting Unavailable FLORO, DIANNE Attending Unavailable EDWARD MCQUEEN Primary Care Unavailable BRYANNA BARTH Admitting Unavailable EDWARD MCQUEEN Primary Care Unavailable FLORO, DIANNE Attending Unavailable SILVER DECKER Consulting Unavailable FLORO, DIANNE Admitting Unavailable FLORO, DIANNE Attending Unavailable EDWARD MCQUEEN Primary Care Unavailable FLORO, DIANNE Admitting Unavailable FLORO, DIANNE Attending Unavailable RICHAR, EDWARD Armijo Primary Care Unavailable FLORO, DIANNE Admitting Unavailable FLORO, DIANNE Attending Unavailable EDWARD MCQUEEN Primary Care Unavailable Margie Fish Unavailable BERTO ZIMMERMAN Admitting Unavailable BERTO ZIMMERMAN Attending Unavailable RICHAR, DR BALLARD Primary Care Unavailable BERTO ZIMMERMAN Consulting Unavailable RICHAR, DR BALLARD Admitting Unavailable BALL, DR BALLARD Attending Unavailable BALL, DR BALLARD Primary Care Unavailable BALL, DR BALLARD Consulting Unavailable Richar Edward Unavailable RAFAEL PALOMINO Attending Unavailable MICK JETT Referring Unavailable EDWARD MCQUEEN Primary Care Unavailable MICK JETT Referring Unavailable EDWARD MCQUEEN Primary Care Unavailable RAQUEL NATION Attending Unavailable MICK JETT Referring Unavailable EDWARD MCQUEEN Primary Care Unavailable RAQUEL NATION Admitting Unavailable Dante DEGROOT Attending Unavailable EDWARD MCQUEEN Referring Unavailable EDWARD MCQUEEN E Primary Care Unavailable Dante DEGROOT Admitting Unavailable TAMIKA, Dante GRUBBS Attending Unavailable BALL, EDWARD E Primary Care Unavailable MICK JETT Attending Unavailable BALL, EDWARD E Referring Unavailable BALL, EDWARD E Primary Care Unavailable MICK JETT Referring Unavailable BALL, EDWARD E Primary Care Unavailable Unavailable Primary Care Provider Unavailabl e Ball DO, Edward E Primary Care Provider BETITO SRIVASTAVA Attending Unavailable FLORO, DIANNE Zarate Attending Unavailable FLORO, DIANNE Zarate Attending Unavailable FLORO, DIANNE Zarate Attending Unavailable BALL, EDWARD E Primary Care [...] Unavailable BALL, EDWARD E Referring Unavailable BALL, DEWARD E Primary Care Unavailable LUANN, VIEH Attending Unavailable BALL, EDWARD E Referring Unavailable BALL, EDWARD E Primary Care Unavailable LUANN, VIEH Attending Unavailable BALL, EDWARD E Referring Unavailable BALL, EDWARD E Primary Care Unavailable Allergies Allergy Classification Reported Allergen(s) Allergy Type Date of Onset Reaction(s) Facility (20 sources) Penicillins; Translations: [PENICILLINS] Propensity to adverse reactions to drug 03-13-20 17 [facility] (20 sources) Penicillin G; Translations: [PENICILLIN G] [facility] Drug Allergy 03-16-20 14 Unknown [facility] (4 sources) Substance with penicillin structure and antibacterial mechanism of action (substance) Drug allergy 01-14-20 18 Unknown [facility] Other (3 sources) patient allergy list reviewed by nurse or physicia Propensity to adverse reactions 02-27-20 17 Comment:Done [facility] Other (3 sources) Allergies Reconciled Propensity to adverse reactions Unknown [facility] Other Medications Current Medications Medication Drug Class(es) [...] aspirin 81 mg delayed release oral tablet (20 sources) Platelet Aggregation Inhibitor, Nonsteroidal Anti-inflammatory Drug Start: 12-23-2023 Aspirin (Adult Lo w Dose Aspirin) 81 mg tablet,delayed release (DR/EC) Active 81 MG PO Daily December 22, 2023 11:00pm Start: 06-15-2021 End: 10-14-2021 ASPIRIN LOW DOSE 81 MG chewa ble tablet azithromycin 250 mg oral tablet (3 sources) Macrolide Antimicrobial Start: 08-29-2022 Azithromycin 250 MG as directed Orally daily for 5 days Aug, Active blood-glucose meter (FREESTYLE FREEDOM) kit (9 sources) Start: 06-08-2021 blood-glucose meter (FREESTYLE FREEDOM) kit Indications: Gestational diabetes mellitus (GDM) in second trimester, gestational diabetes method of control unspecified Use as instructed 1 each 06/08/2021 Active calcium chloride 0.0014 meq/ml / potassium [...] MCG TABS clopidogrel 75 mg oral tablet (13 sources) P2Y12 Platelet Inhibitor Start: 03-13-2024 take [...] mg docusate sodium 50 mg / sennosides, fdc 8.6 mg oral tablet (1 source) Start: 10-12-2021 sennosides-docusate sodium (SENOKOT-S) 8.6-50 MG tablet 1 tablet 0.6 ml enoxaparin sodium 100 mg/ml prefilled syringe (1 source) Low Molecular Weight Heparin Start: 10-13-2021 enoxaparin (LOVENOX) injection 60 mg escitalopram 10 mg oral tablet (17 sources) Serotonin Reuptake Inhibitor Start: 08-18-2024 take 1 tablet by mouth once daily Escitalopram Oxalate 10 mg tablet Active 10 MG PO Daily August 18, 2024 12:00am take 1 tablet by mouth once padilla y escitalopram (LEXAPRO) 20 mg tablet Take 20 mg by mouth daily. Active ferrous sulfate 325 mg oral tablet (8 sources) Start: 12-23-2023 take 1 tablet by mouth twice daily Ferrous Sulfate 325 mg (65 mg iron) tablet Active 325 MG PO Twice daily December 22, 2023 11:00pm take 1 tablet by mouth at mealti md ferrous sulfate 325 (65 Fe) MG tablet [...] Discharge) insulin lispro 100 unt/ml injectable solution (7 sources) Insulin Analog Start: 10-12-2021 insulin lispro (HUMALOG) injection vial 0-3 Units Start: 09-28-2021 insulin lispro (HumaLOG) 100 unit/mL insulin pen Indications: Diet controlled gestational diabetes mellitus (GDM) in third trimester Give 5 units insulin subQ at dinner time. 2 units to prime. 15 mL 1 09/28/2021 Active End: 10-14-2021 insulin lispro (HUMALOG) 100 UNIT/ML [...] Active Start: 10-12-2021 lansinoh lanol in ointment 1 ml methylergonovine maleate 0.2 mg/ml injection (1 source) Ergot Derivative Start: 10-12-2021 methylergonovine (METHERGINE) injection 200 mcg metroNIDAZOLE 250 mg oral tablet (1 source) Nitroimidazole Antimicrobial Start: 10-12-2021 End: 10-14-2021 metroNIDAZOLE (FLAGYL) tablet 500 mg miSOPROStol 0.1 mg oral tablet (1 source) Prostaglandin E1 Analog Start: 10-12-2021 miSOPROStol (CYTOTEC) tablet 800 mcg 1 ml nalbuphine hydrochloride 10 mg/ml injection (1 source) Opioid Agonist/Antagonist Start: 10-12-2021 nalbuphine (NUBAIN) injection 10 mg 1 ml naloxone hydrochloride 0.4 mg/ml injection (1 source) Opioid Antagonist Start: 10-12-2021 naloxone (NARCAN) injection 0.4 mg 2 ml ondansetron 2 mg/ml injection (1 source) Serotonin-3 Receptor Antagonist Start: 10-12-2021 ondansetron (ZOFRAN) injection 4 mg oxytocin (PITOCIN) 30 units in 500 mL infusion (1 source) Start: 10-12-2021 End: 10-14-2021 oxytocin (PITOCIN) 30 units in 500 mL infusion VIT CALC,IRON,FOLIC ( VITAMIN ORAL) (4 sources) take 1 tablet by mouth once daily VIT CALC,IRON,FOLIC ( VITAMIN ORAL) Take 1 tablet by mouth daily. Active Vit-Fe Fumarate-FA ( VITAMINS PO) (6 sources) Vit-Fe Fumarate-FA ( VITAMINS PO) Take by mouth 0 Active vitamin 27-1 MG tablet 1 tablet (1 source) Start: 10-12-2021 vitamin 27-1 MG tablet 1 tablet simethicone 80 mg chewable tablet (1 source) Start: 10-12-2021 simethicone (MYLICON) chewable tablet 80 mg 5 ml sodium chloride 9 mg/ml injection (4 sources) Start: 10-12-2021 sodium chloride flush 0.9 % injection 10 mL Start: 10-12-2021 0.9 % sodium c hloride infusion Completed/Discontinued Medications Medication Drug Class(es) Dates Sig (Normalized) Sig (Original) atorvastatin 20 mg oral tablet (10 sources) HMG-CoA Reductase Inhibitor Start: 12-18-2023 End: 08-18-2024 take 1 tablet by mouth once daily Atorvastatin 20 mg tablet Discontinued 20 MG PO Daily December 22, 2023 11:00pm August 18, 2024 1:52pm buPROPion hydrochloride 100 mg oral tablet (20 sources) Aminoketone Start: 09-12-2023 End: 08-18-2024 take 1 tablet by mouth twice daily Bupropion Hcl 100 mg tablet Discontinued 100 MG PO Twice daily September 12, 2023 12:00am August 18, 2024 1:51pm Start: 08-26-2023 End: 07-16-2024 buPROPion (Wellbutrin) 100 [...] the morning Orally Once a day Active citric acid 66.8 mg/ml / sodium citrate [...] injection hydrOXYzine hydrochloride 25 mg oral tablet (8 sources) Antihistamine Start: 12-30-2023 End: 08-18-2024 take 1-2 tablets by mouth once daily at bedtime Hydroxyzine Hcl 25 mg tablet Discontinued 25 MG PO Daily at bedtime December 30, 2023 5:39pm August 18, 2024 1:51pm 1-2 tablets Start: 09-12-2023 End: 12-23-2023 take 1-2 tablets by mouth once daily at bedtime as needed Hydroxyzine Hcl 25 mg tablet Discontinued 0 PO Daily at bedtime as needed September 12, 2023 12:00am December 23, 2023 2:53pm 1-2 Tablets orally daily at bedtime PRN; Start: 04-09-2023 take 1-2 tablets by mouth once at bedtime as needed for sleep hydrOXYzine HCl 25 MG 1-2 tablets Orally q HS as needed for sleep Apr, Active 1 ml ketorolac tromethamine 30 mg/ml cartridge (1 source) Nonsteroidal Anti-inflammatory Drug, Cyclooxygenase Inhibitor Start: 10-12-2021 End: 10-13-2021 ketorolac (TORADOL) injection 30 mg levonorgestrel 0.090655 mg/hr intrauterine system (9 sources) Progestin, Progestin-containing Intrauterine Device Start: 09-12-2023 End: 08-18-2024 Levonorgestrel 21 mcg/24 hours (8 yrs) 52 mg intrauterine device Discontinued 1 DEVICE INTRAUTERI As Directed September 12, 2023 12:00am August 18, 2024 1:51pm Start: 09-12-2023 Levonorgestrel Active 1 DEVICE INTRAUTERI As Directed September 12, 2023 1:00am 500 ml magnesium sulfate 40 mg/ml injection (3 sources) Start: 10-12-2021 End: 10-12-2021 magnesium sulfate 4000 mg in 100 mL IVPB premix Start: 10-12-2021 End: 10-13-2021 magnesium sulfate (47132 mg/ 500mL infusion) 2 ml metoclopramide 5 [...] Acute cerebrovascular disease Onset: 12-17-2023 Anxiety disorders (9 sources) Generalized anxiety disorder; Translations: [Generalized anxiety disorder] 09-12-2023 Chronic Cardiac and circulatory congenital anomalies (19 sources) Patent foramen ovale; Translations: [Patent foramen ovale] Onset: 02-18-2024 12-20-2023 Chronic Cardiac and circulatory congenital anomalies (4 sources) Personal history of (corrected) congenital malformations of heart and circulatory system; Translations: [H/O cardiac surgery] Onset: 03-23-2024 07-31-2024 Episodic Cardiac dysrhythmias (7 sources) Palpitations; Translations: [Palpitations] Onset: 12-26-2023 07-31-2024 Episodic Coma; stupor; and brain damage (2 sources) Loss of consciousness; Translations: [Unspecified coma] 08-27-2024 Episodic Deficiency and other anemia (2 sources) Anemia; Translations: [Anemia, unspecified] 12-21-2023 Episodic Deficiency and other anemia (2 sources) Anemia, unspecified; Translations: [Anemia, unspecified] 12-23-2023 Episodic Diabetes mellitus with complications (10 sources) Type 2 diabetes mellitus; Translations: [Type [...] delivered by ] Episodic Malaise and fatigue (9 sources) Malaise; Translations: [Other malaise] 08-18-2024 Episodic Menstrual disorders (8 sources) Irregular periods; Translations: [Irregular menstruation, unspecified] Onset: 08-24-2024 08-24-2024 Chronic Miscellaneous mental health disorders (12 sources) Mental disorder; Translations: [Mental disorder, not otherwise specified] Chronic Mood disorders (12 sources) Mild recurrent major depression; 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, recurrent, 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 Other circulatory disease (2 sources) Personal history of transient ischemic attack (TIA), and cerebral infarction without residual deficits; Translations: [Personal history of transient ischemic attack (TIA), and cerebral infarction without residual deficits] Onset: 12-20-2023 Episodic Other endocrine disorders (2 sources) Polycystic ovary syndrome; Translations: [Polycystic ovarian syndrome] 08-24-2024 Chronic Other female genital disorders (7 sources) Postcoital bleeding; Translations: [Postcoital and contact bleeding] Chronic Other gastrointestinal disorders (7 sources) Diarrhea; Translations: [Diarrhea, unspecified] Episodic Other nutritional; endocrine; and metabolic disorders (7 sources) Morbid obesity; Translations: [Morbid (severe) obesity due to excess calories] Chronic Other nutritional; endocrine; and metabolic disorders (2 sources) Obesity; Translations: [Obesity, unspecified] 09-16-2023 Chronic Other nutritional; endocrine; and metabolic disorders (16 sources) Body mass index 40+ - severely [...] use; Translations: [TOBACCO USE] Onset: 08-17-2022 Episodic Transient cerebral ischemia (18 sources) Transient cerebral ischemia; Translations: [Transient cerebral ischemic attack, unspecified] Onset: 12-26-2023 12-21-2023 Chronic Unclassified (5 sources) No additional problems on file Unclassified (1 source) Atrial septal defect, unspecified; Translations: [Atrial septal defect, unspecified] Onset: 12-20-2023 Unclassified (1 source) PFO Onset: 03-13-2024 Past or Other Problems Problem Classification Problem Date Documented Da te Episodic/Chronic Contraceptive and procreative management (16 sources) Patient encounter status; Translations: [Encounter for sterilization] Onset: 07-15-2018 07-15-2018 Episodic Diabetes or abnormal glucose tolerance complicating ; childbirth; or the puerperium (20 sources) Gestational diabetes mellitus; Translations: [Gestational diabetes mellitus in , diet controlled] Onset: 05-19-2018 Episodic Hypertension complicating ; childbirth and the puerperium (16 sources) Hypertension AND/OR vomiting complicating childbirth AND/OR puerperium; Translations: [Gestational [-induced] hypertension without significant proteinuria, third trimester] Onset: 07-22-2018 07-22-2018 Episodic Immunizations and screening for infectious disease (1 source) Contact with and (suspected) exposure to other viral communicable diseases Onset: 06-14-2021 Resolved: 06-14-2021 Episodic Other and delivery including normal (16 sources) Intrauterine ; Translations: [Encounter for supervision of normal , unspecified, unspecified trimester] Onset: 07-29-2018 07-29-2018 Episodic Other skin disorders (16 sources) Acne; Translations: [Acne, unspecified] Onset: 03-13-2017 03-13-2017 Episodic Other skin disorders (16 sources) Abnormal hair finding; Translations: [Other hair color and hair shaft abnormalities] Onset: 03-13-2017 03-13-2017 Episodic Residual codes; unclassified (1 source) Pain, unspecified; Translations: [Pain, unspecified] Onset: 12-18-2023 Episodic Unclassified (1 source) Atrial septal defect, unspecified; Translations: [Atrial septal defect, unspecified] Onset: 12-20-2023 Results Test Name Value Interpretation Reference Range Facility Basophils Auto (Bld) [#/Vol] on 08-17-2024 Basophils (Bld) [#/Vol] Automated basophil count 0.0-0.1 [facility] Basophils/100 WBC Auto (Bld) on 08-17-2024 Basophils/100 WBC (Bld) Automated basophil % 0.2-2.[address] [facility] Eosinophils/100 WBC Auto (Bl d)on 08-17-2024 Eosinophils/100 WBC (Bld) Automated eosinophil % Low 0.9-7.[address] [facility] Erythrocyte distribution wid th Auto (RBC) [Ratio]on 08-17-2024 Erythrocyte distribution width (RBC) [Ratio] Erythrocyte distribution width [Ratio] by Automated count High 11.0-15.[address] [facility] Estimated glomerular filtrat ion rate (GFR) non- Americanon 08-17-2024 GFR/1.73 sq M.predicted among non-blacks MDRD (S/P/Bld) [Vol rate/Area] Estimated glomerular filtration rate (GFR) non- >=60 mL/min/1.7 3m [address] [facility] Hematocrit Auto (Bld) [Volum e fraction]on 08-17-2024 Hematocrit (Bld) [Volume fraction] Hematocrit [Volume Fraction] of Blood by Automated count Low 36.0-48.[address] [facility] Hemoglobin [Mass/volume] in Bloodon 08-17-2024 Hemoglobin (Bld) [Mass/Vol] Hemoglobin [Mass/volume] in Blood Low 12.0-16.[address] [facility] Laboratory - Chemistry and C hemistry - challengeon 08-17-2024 Calcium [Mass/Vol] 7.9 mg/dL Low 8.5-10.1 [facility] Chloride [Moles/Vol] 104 mmol/L 98-[address] [facility] CO2 [Moles/Vol] 29.6 mmol/L 21.0-32.0 [facility] Creatinine [Mass/Vol] 0.60 mg/dL 0.55-1.[address] [facility] GFR/1.73 sq M.predicted MDRD (S/P/Bld) [Vol rate/Area] mL/min/{1.73_m2} >=60 mL/min/1.7 [address]m [address] [facility] Glucose [Mass/Vol] 105 mg/dL 74-106 [facility] Potassium [Moles/Vol] 3.4 mmol/L Low 3.5-5.[address] [facility] Sodium [Moles/Vol] 141 mmol/L 136-145 [facility] Urea nitrogen [Mass/Vol] 10.0 mg/dL 7.0-18.[address] [facility] Urea nitrogen/Creatinine [Mass ratio] 16.7 mg/mg [facility] Laboratory - Hematology and Cell countson 08-17-2024 Immature granulocytes/100 WBC (Bld) 0.2 % 0.0-0.[address] [facility] Leukocytes [#/volume] correc alfredito for nucleated erythrocytes in Blood by Automated counon 08-17-2024 WBC corrected for nucl RBC Auto (Bld) [#/Vol] Leukocytes [#/volume] corrected for nucleated erythrocytes in Blood by Automated coun 4.0-11.[address] [facility] Lymphocytes Auto (Bld) [#/Vo l]on 08-17-2024 Lymphocytes (Bld) [#/Vol] Lymphocytes [#/volume] in Blood by Automated count 1.2-3.[address] [facility] Lymphocytes/100 WBC Auto (Bl d)on 08-17-2024 Lymphocytes/100 WBC (Bld) Lymphocytes/100 leukocytes in Blood by Automated count 20.5-60.[address] [facility] MCH Auto (RBC) [Entitic mass ]on 08-17-2024 MCH (RBC) [Entitic mass] MCH [Entitic mass] by Automated count Low 26.7-34.[address] [facility] MCHC Auto (RBC) [Mass/Vol]on 08-17-2024 MCHC (RBC) [Mass/Vol] MCHC [Mass/volume] by Automated count Low 29.9-35.[address] [facility] MCV Auto (RBC) [Entitic vol] on 08-17-2024 MCV (RBC) [Entitic vol] MCV [Entitic volume] by Automated count Low 81.0-99.[address] [facility] Monocytes Auto (Bld) [#/Vol] on 08-17-2024 Monocytes (Bld) [#/Vol] Automated blood monocyte count 0.3-0.[address] [facility] Monocytes/100 WBC Auto (Bld) on 08-17-2024 Monocytes/100 WBC (Bld) Automated monocyte % 1.7-12.[address] [facility] Neutrophils Auto (Bld) [#/Vo l]on 08-17-2024 Neutrophils (Bld) [#/Vol] Neutrophils [#/volume] in Blood by Automated count 1.4-6.[address] [facility] Neutrophils/100 WBC Auto (Bl d)on 08-17-2024 Neutrophils/100 WBC (Bld) Automated neutrophil % Low 43.0-75.[address] [facility] No Panel Informationon 08-17 Bedside Influenza Type A Antigen Negative [facility] Comment on above: Negative for Flu A p rotein antigen. Infection due to Flu Acannot be ruled out. Flu A antigen in the sample may bebelow the detection limit of the test. Bedside Influenza Type B Antigen Negative [facility] Comment on above: Negative for Flu B p rotein antigen. Infection due to Flu Bcannot be ruled out. Flu B antigen in the sample may bebelow the detection limit of the test. Eosinophils # (Auto) 0.0 10 3/uL 0.0-0.[address] [facility] Immature Granulocyte # (Auto) 0.01 10 3/uL 0.00-0.[address] [facility] Platelet mean volume Auto (B ld) [Entitic vol]on 08-17-2024 Platelet mean volume (Bld) [Entitic vol] Platelet mean volume [Entitic volume] in Blood by Automated count 9.5-13.[address] [facility] Platelets Auto (Bld) [#/Vol] on 08-17-2024 Platelets (Bld) [#/Vol] Platelets [#/volume] in Blood by Automated count 150-[address] [facility] RBC Auto (Bld) [#/Vol]on RBC (Bld) [#/Vol] Erythrocytes [#/volu me] in Blood by Automated count 4.20-5.[address] [facility] Serum or plasma anion gap de terminationon 08-17-2024 Anion gap [Moles/Vol] Serum or plasma anion gap determination [facility] POCT EKGon 07-31-[address] [facility] ACT Diatomaceous earth induc ed (Bld)on 03-13-2024 [facility] CLOT TIME LR 298 sec High 89-169 [facility] Comment on above: Performed By: #### [id number] #### [facility] ([id number]) [address] [place] [address] Office Visiton 12-20-2023 Follow-up visit [id number] Shamir Lucas 1985 F Date Provider Department Center 12/20/2023 RAFAEL [facility] Family History Problem Relation Age of Onset Diabetes Mother Hypertension Father Atrial fibrillation Brother Lung cancer Paternal Grandfather Family Status - Relation Status Age at Mother Father Brother Maternal Grandmother Alive Paternal Grandfather Level of Service:54692 [place] PHYS/QHP TELEPHONE EVALUATION 21-30 MIN Normal [facility] Basophils Auto (Bld) [#/Vol] on 12-18-2023 Basophils (Bld) [#/Vol] 0.0 10 3/uL 0.0-0.[address] [facility] Basophils/100 WBC Auto (Bld) on 12-18-2023 Basophils/100 WBC (Bld) 0.7 % 0.2-2.[address] [facility] Eosinophils/100 WBC Auto (Bl d)on 12-18-2023 Eosinophils/100 WBC (Bld) 1.5 % 0.9-7.[address] [facility] Erythrocyte distribution wid th Auto (RBC) [Ratio]on 12-18-2023 Erythrocyte distribution width (RBC) [Ratio] 18.0 % 11.0-15.[address] [facility] Estimated glomerular filtrat ion rate (GFR) non- Americanon 12-18-2023 GFR/1.73 sq M.predicted among non-blacks MDRD (S/P/Bld) [Vol rate/Area] mL/min/{1.73_m2} >=[address] [facility] Globulin Calc (S) [Mass/Vol] on 12-18-2023 Globulin (S) [Mass/Vol] 3.1 g/dL [facility] Hematocrit Auto (Bld) [Volum e fraction]on 12-18-2023 Hematocrit (Bld) [Volume fraction] 27.9 % 36.0-48.[address] [facility] Hemoglobin [Mass/volume] in Bloodon 12-18-2023 Hemoglobin (Bld) [Mass/Vol] 8.2 g/dL 12.0-16.[address] [facility] Laboratory - Chemistry and C hemistry - challengeon 12-18-2023 Albumin [Mass/Vol] 2.8 g/dL 3.4-5.0 [facility] ALP [Catalytic activity/Vol] 67 U/L 46-[address] [facility] ALT [Catalytic activity/Vol] 14 U/L 14-[address] [facility] AST [Catalytic activity/Vol] 8 U/L 15-[address] [facility] Bilirubin [Mass/Vol] 0.4 mg/dL 0.2-1.[address] [facility] Calcium [Mass/Vol] 7.8 mg/dL 8.5-10.1 [facility] Chloride [Moles/Vol] 108 mmol/L 98-[address] [facility] CO2 [Moles/Vol] 25.7 mmol/L 21.0-32.0 [facility] Creatinine [Mass/Vol] 0.60 mg/dL 0.55-1.[address] [facility] GFR/1.73 sq M.predicted MDRD (S/P/Bld) [Vol rate/Area] mL/min/{1.73_m2} >=[address] [facility] Glucose [Mass/Vol] 75 mg/dL 74-106 [facility] Potassium [Moles/Vol] 3.7 mmol/L 3.5-5.[address] [facility] Protein [Mass/Vol] 5.9 g/dL 6.4-8.2 [facility] Sodium [Moles/Vol] 139 mmol/L 136-145 [facility] Urea nitrogen [Mass/Vol] 9.0 mg/dL 7.0-18.[address] [facility] Urea nitrogen/Creatinine [Mass ratio] 15.0 mg/mg [facility] Laboratory - Hematology and Cell countson 12-18-2023 Immature granulocytes/100 WBC (Bld) 0.2 % 0.0-0.[address] [facility] Leukocytes [#/volume] correc alfredito for nucleated erythrocytes in Blood by Automated counon 12-18-2023 WBC corrected for nucl RBC Auto (Bld) [#/Vol] 5.9 10 3/uL 4.0-11.[address] [facility] Lymphocytes Auto (Bld) [#/Vo l]on 12-18-2023 Lymphocytes (Bld) [#/Vol] 2.4 10 3/uL 1.2-3.[address] [facility] Lymphocytes/100 WBC Auto (Bl d)on 12-18-2023 Lymphocytes/100 WBC (Bld) 41.3 % 20.5-60.[address] [facility] MCH Auto (RBC) [Entitic mass ]on 12-18-2023 MCH (RBC) [Entitic mass] 21.0 pg 26.7-34.[address] [facility] MCHC Auto (RBC) [Mass/Vol]on 12-18-2023 MCHC (RBC) [Mass/Vol] 29.4 g/dL 29.9-35.[address] [facility] MCV Auto (RBC) [Entitic vol] on 12-18-2023 MCV (RBC) [Entitic vol] 71.5 fL 81.0-99.[address] [facility] Monocytes Auto (Bld) [#/Vol] on 12-18-2023 Monocytes (Bld) [#/Vol] 0.4 10 3/uL 0.3-0.[address] [facility] Monocytes/100 WBC Auto (Bld) on 12-18-2023 Monocytes/100 WBC (Bld) 6.6 % 1.7-12.[address] [facility] Neutrophils Auto (Bld) [#/Vo l]on 12-18-2023 Neutrophils (Bld) [#/Vol] 2.9 10 3/uL 1.4-6.[address] [facility] Neutrophils/100 WBC Auto (Bl d)on 12-18-2023 Neutrophils/100 WBC (Bld) 49.7 % 43.0-75.[address] [facility] No Panel Informationon 12-17 Eosinophils # (Auto) 0.1 10 3/uL 0.0-0.[address] [facility] Immature Granulocyte # (Auto) 0.01 10 3/uL 0.00-0.[address] [facility] Platelet mean volume Auto (B ld) [Entitic vol]on 12-18-2023 Platelet mean volume (Bld) [Entitic vol] 10.4 fL 9.5-13.[address] [facility] Platelets Auto (Bld) [#/Vol] on 12-18-2023 Platelets (Bld) [#/Vol] 247 10 3/uL 150-[address] [facility] RBC Auto (Bld) [#/Vol]on RBC (Bld) [#/Vol] 3.90 10 6/uL 4.20-5.40 [facility] Serum or plasma albumin/glob ulin mass ratioon 12-18-2023 Albumin/Globulin [Mass ratio] 0.9 {ratio} [facility] Serum or plasma anion gap de terminationon 12-18-2023 Anion gap [Moles/Vol] 9.0 mmol/L [facility] Activated partial thrombopla stin time (aPTT) in platelet poor plasma by coagulation aon 12-17-2023 aPTT Coag (PPP) [Time] 26.5 s 22.3-36.[address] [facility] Basophils Auto (Bld) [#/Vol] on 12-17-2023 Basophils (Bld) [#/Vol] 0.0 10 3/uL 0.0-0.[address] [facility] Basophils/100 WBC Auto (Bld) on 12-17-2023 Basophils/100 WBC (Bld) 0.7 % 0.2-2.[address] [facility] Cholesterol in LDL Calc [Mas s/Vol]on 12-17-2023 Cholesterol in LDL [Mass/Vol] 64.4 mg/dL [facility] Comment on above: <100 mg/dl [id number] 0-129 mg/dl NEAR OR ABOVE [id number] mg/dl BORDERLINE [id number] mg/dl HIGH>190 mg/dl VERY HIGH Cholesterol in VLDL Calc [Ma ss/Vol]on 12-17-2023 Cholesterol in VLDL [Mass/Vol] 10.6 mg/dL [facility] Eosinophils/100 WBC Auto (Bl d)on 12-17-2023 Eosinophils/100 WBC (Bld) 1.5 % 0.9-7.[address] [facility] Erythrocyte distribution wid th Auto (RBC) [Ratio]on 12-17-2023 Erythrocyte distribution width (RBC) [Ratio] 17.8 % 11.0-15.[address] [facility] Estimated glomerular filtrat ion rate (GFR) non- Americanon 12-17-2023 GFR/1.73 sq M.predicted among non-blacks MDRD (S/P/Bld) [Vol rate/Area] mL/min/{1.73_m2} >=[address] [facility] Globulin Calc (S) [Mass/Vol] on 12-17-2023 Globulin (S) [Mass/Vol] 3.6 g/dL [facility] Glucose mean value [Mass/vol ume] in Blood Estimated from glycated hemoglobinon 12-17-2023 Average glucose Estimated from glycated hemoglobin (Bld) [Mass/Vol] 114 mg/dL [facility] Hematocrit Auto (Bld) [Volum e fraction]on 12-17-2023 Hematocrit (Bld) [Volume fraction] 31.4 % 36.0-48.[address] [facility] Hemoglobin [Mass/volume] in Bloodon 12-17-2023 Hemoglobin (Bld) [Mass/Vol] 9.2 g/dL 12.0-16.[address] [facility] INR in Platelet poor plasma by Coagulation assayon 12-17-2023 INR Coag (PPP) [Relative time] 1.07 {INR} [facility] Comment on above: DESIRED INR:2.0-3.0 CONDITIONS NOT LISTED BELOW2.5-3.5 FOR PROSTHETIC HEART VALVE REPLACEMENT2.5-3.5 RECURRENT THROMBOSIS Iron binding capacity [Mass/ volume] in Serum or Plasmaon 12-17-2023 Iron binding capacity [Mass/Vol] 443.0 ug/dL 250.0-450. [address] [facility] Iron saturation [Mass Fracti on] in Serum or Plasmaon 12-17-2023 Iron saturation [Mass fraction] 3.6 % [facility] Laboratory - Chemistry and C hemistry - challengeon 12-17-2023 Albumin [Mass/Vol] 3.3 g/dL 3.4-5.0 [facility] ALP [Catalytic activity/Vol] 79 U/L 46-[address] [facility] ALT [Catalytic activity/Vol] 17 U/L 14-[address] [facility] AST [Catalytic activity/Vol] 16 U/L 15-[address] [facility] Bilirubin [Mass/Vol] 0.6 mg/dL 0.2-1.[address] [facility] Calcium [Mass/Vol] 8.1 mg/dL 8.5-10.1 [facility] Chloride [Moles/Vol] 105 mmol/L 98-[address] [facility] Cholesterol [Mass/Vol] 125 mg/dL <=[address] [facility] Cholesterol in HDL [Mass/Vol] 50 mg/dL 40-[address] [facility] Comment on above: > or =60 mg/dl - LOW CARDIOVASCULAR RISK<40 mg/dl - HIGH CARDIOVASCULAR RISK CO2 [Moles/Vol] 27.0 mmol/L 21.0-32.0 [facility] Cobalamin (Vitamin B12) [Mass/Vol] 209.0 pg/mL 193.0-986. [address] [facility] Creatinine [Mass/Vol] 0.70 mg/dL 0.55-1.[address] [facility] Ferritin [Mass/Vol] 6.0 ng/mL 8.0-252.0 [facility] GFR/1.73 sq M.predicted MDRD (S/P/Bld) [Vol rate/Area] mL/min/{1.73_m2} >=[address] [facility] Glucose [Mass/Vol] 94 mg/dL 74-106 [facility] Iron [Mass/Vol] 16.0 ug/dL 50.0-170.[address] [facility] Magnesium [Mass/Vol] 2.4 mg/dL 1.8-2.[address] [facility] Potassium [Moles/Vol] 3.5 mmol/L 3.5-5.[address] [facility] Protein [Mass/Vol] 6.9 g/dL 6.4-8.2 [facility] Sodium [Moles/Vol] 141 mmol/L 136-145 [facility] Triglyceride [Mass/Vol] 53 mg/dL <=[address] [facility] TSH Qn 1.336 m[IU]/L 0.358-3.[address] [facility] Urea nitrogen [Mass/Vol] 10.0 mg/dL 7.0-18.[address] [facility] Urea nitrogen/Creatinine [Mass ratio] 14.3 mg/mg [facility] Laboratory - Hematology and Cell countson 12-17-2023 HbA1c (Bld) [Mass fraction] 5.6 % 4.5-6.[address] [facility] Comment on above: ADA RECOMMENDED LIMI T 4.0 - 6.0ADA THERAPEUTIC TARGET < 7.0ACTION SUGGESTED> 7.0 Immature granulocytes/100 WBC (Bld) 0.2 % 0.0-0.[address] [facility] Leukocytes [#/volume] correc alfredito for nucleated erythrocytes in Blood by Automated counon 12-17-2023 WBC corrected for nucl RBC Auto (Bld) [#/Vol] 5.5 10 3/uL 4.0-11.[address] [facility] Lymphocytes Auto (Bld) [#/Vo l]on 12-17-2023 Lymphocytes (Bld) [#/Vol] 2.5 10 3/uL 1.2-3.[address] [facility] Lymphocytes/100 WBC Auto (Bl d)on 12-17-2023 Lymphocytes/100 WBC (Bld) 46.2 % 20.5-60.[address] [facility] MCH Auto (RBC) [Entitic mass ]on 12-17-2023 MCH (RBC) [Entitic mass] 20.9 pg 26.7-34.[address] [facility] MCHC Auto (RBC) [Mass/Vol]on 12-17-2023 MCHC (RBC) [Mass/Vol] 29.3 g/dL 29.9-35.[address] [facility] MCV Auto (RBC) [Entitic vol] on 12-17-2023 MCV (RBC) [Entitic vol] 71.4 fL 81.0-99.[address] [facility] Monocytes Auto (Bld) [#/Vol] on 12-17-2023 Monocytes (Bld) [#/Vol] 0.4 10 3/uL 0.3-0.[address] [facility] Monocytes/100 WBC Auto (Bld) on 12-17-2023 Monocytes/100 WBC (Bld) 6.6 % 1.7-12.[address] [facility] Neutrophils Auto (Bld) [#/Vo l]on 12-17-2023 Neutrophils (Bld) [#/Vol] 2.4 10 3/uL 1.4-6.[address] [facility] Neutrophils/100 WBC Auto (Bl d)on 12-17-2023 Neutrophils/100 WBC (Bld) 44.8 % 43.0-75.[address] [facility] No Panel Informationon 12-16 Eosinophils # (Auto) 0.1 10 3/uL 0.0-0.[address] [facility] Folate 12.40 ng/mL 8.60-58.[address] [facility] Immature Granulocyte # (Auto) 0.01 10 3/uL 0.00-0.[address] [facility] Troponin I High Sensitivity 6.3 pg/mL 4.0-51.[address] [facility] Comment on above: CUT-OFF POINTS HAVE [...] volume (Bld) [Entitic vol] 10.1 fL 9.5-13.[address] [facility] Platelets Auto (Bld) [#/Vol] on 12-17-2023 Platelets (Bld) [#/Vol] 283 10 3/uL 150-[address] [facility] Prothrombin time (PT)on 12-06 PT Coag (PPP) [Time] 11.3 s 9.0-11.[address] [facility] RBC Auto (Bld) [#/Vol]on RBC (Bld) [#/Vol] 4.40 10 6/uL 4.20-5.40 [facility] Reticulocytes/100 RBC Auto ( Bld)on 12-17-2023 Reticulocytes/100 RBC (Bld) 0.95 % 0.60-3.[address] [facility] Serum or plasma albumin/glob ulin mass ratioon 12-17-2023 Albumin/Globulin [Mass ratio] 0.9 {ratio} [facility] Serum or plasma anion gap de terminationon 12-17-2023 Anion gap [Moles/Vol] 12.5 mmol/L [facility] Serum or plasma total choles terol/high density lipoprotein (HDL) cholesterol mass vasiliy 12-17-2023 Cholesterol.total/C holesterol in HDL [Mass ratio] 2.5 {ratio} [facility] Comment on above: 3.3 - 4.4 LOW RISK4. 4 - 7.1 AVERAGE RISK7.1 - 11.0 MODERATE RISK>11.0 HIGH RISK NICOTINE METABOLITESon 08-27 Cotinine <1.0 Normal [facility] Comment on above: Result Comment: This test was developed and its performance characteristics determined by [employer]. It has not been cleared or approved by the Food and Drug Administration. Cotinine levels greater than 20.0 are consistent with the use of tobacco or tobacco cessation products. Performed By: #### N ICTBLD #### [facility] [address] [place] [address] Dr. Malcolm Gil Nicotine <1.0 Normal [facility] Comment on above: Result Comment: This test was developed and its performance characteristics determined by [employer]. It has not been cleared or approved by the Food and Drug Administration. Nicotine levels greater than 2.0 are consistent with the use of tobacco or tobacco cessation products. Performed By: #### N ICTBLD #### [facility] [address] [address] [address] Malcolm Gli GLYCOHEMOGLOBIN A1Con 2022 ADA RECOMMENDATION SEE BELOW Normal [facility] Comment on above: Result Comment: ADA RECOMMENDED LIMIT 4.0 - 6.0 ADA THERAPEUTIC TARGET < 7.0 ACTION SUGGESTED > 7.0 Performed By: #### A 1C #### [facility] [address] [address] [address] Malcolm Gil Glucose [Mass/Vol] 163 mg/dL Normal [facility] Comment on above: Performed By: #### A 1C #### [facility] [address] [place] [address] Dr. Malcolm Gil HbA1c (Bld) [Mass fraction] 7.3 % Critically high 4.5-6.2 [facility] Comment on above: Performed By: #### A 1C #### [facility] [address] [place], [place] [address] Dr. Malcolm Gil Glucose, Whole Bloodon 10-14 Glucose [Mass/Vol] 85 mg/dL 74 - 100 mg/dL [facility] Glucose, Whole Bloodon 10-13 Glucose [Mass/Vol] 161 mg/dL High 74 - 100 mg/dL [facility] Interpretation and review of laboratory results Abnormal [facility] Glucose [Mass/Vol] 168 mg/dL High 74 - 100 mg/dL [facility] Interpretation and review of laboratory results Abnormal [facility] Glucose [Mass/Vol] 136 mg/dL High 74 - 100 mg/dL [facility] Interpretation and review of laboratory results Abnormal [facility] Glucose [Mass/Vol] 137 mg/dL High 74 - 100 mg/dL [facility] Interpretation and review of laboratory results Abnormal [facility] Hemoglobinon 10-13-2021 Hemoglobin (Bld) [Mass/Vol] 10.1 g/dL Low 11.9-15.1 [facility] Comment on above: Performed By: #### U RTPRT #### [facility] [address] [place] [address] Asset Coordinator: Morro Hale MD Hemoglobin.gastroin testinal spec 1 Ql (Stl) 10.1 g/dL Low 11.9 - 15.1 g/dL [facility] Interpretation and review of laboratory results Abnormal [facility] Hemoglobin A1Con 10-13-2021 Glucose [Mass/Vol] 143 mg/dL Normal [facility] Comment on above: Result Comment: The ADA and AACC recommend providing the estimated average glucose result to permit better patient understanding of their HBA1c result. Performed By: #### U RTPRT #### [facility] [address] [place] [address] Asset Coordinator: Morro Hale MD HbA1c (Bld) [Mass fraction] 6.6 % High 4.0-6.0 [facility] Comment on above: Performed By: #### U RTPRT #### [facility] [address] [place] [address] Asset Coordinator: Morro Hale MD Hemoglobin A1con 10-13-2021 Glucose [Mass/Vol] 143 mg/dL [facility] Comment on above: The ADA and AACC rec ommend providing the estimated average glucose result to permit better patient understanding of their HBA1c result. HbA1c (Bld) [Mass fraction] 6.6 % High 4.0 - 6.0 % [facility] Interpretation and review of laboratory results Abnormal [facility] Magnesiumon 10-13-2021 Magnesium [Mass/Vol] 4.7 mg/dL Critically high 1.6-2.6 [facility] Comment on above: Performed By: #### U RTPRT #### [facility] [address] [place] [address] Asset Coordinator: Morro Hale MD Interpretation and review of laboratory results Abnormal [facility] Magnesium [Mass/Vol] 4.7 mg/dL Critically high 1.6 - 2.6 mg/dL [facility] Magnesium [Mass/Vol] 5.3 mg/dL Critically high 1.6-2.6 [facility] Comment on above: Performed By: #### M G #### [facility] [address] [place] [address] Dr[place], [place] [id number] Asset Coordinator: Morro Hale MD Interpretation and review of laboratory results Abnormal [facility] Magnesium [Mass/Vol] 5.3 mg/dL Critically high 1.6 - 2.6 mg/dL [facility] Magnesium [Mass/Vol] 4.1 mg/dL Critically high 1.6-2.6 [facility] Comment on above: Performed By: #### M G #### [facility] [address] [place] [address] Asset Coordinator: Morro Hale MD APTTon 10-12-2021 aPTT Coag (Bld) [Time] 23.9 s Low 26.8-34.8 [facility] Comment on above: Result Comment: IV Heparin Therapy Range: 62.0-94.0 Performed By: #### U RTPRT #### [facility] [address] [place] [address] Asset Coordinator: Morro Hale MD aPTT Coag (Bld) [Time] 23.9 s Low [facility] Comment on above: IV Heparin Therapy Range: 62.0-94.0 Interpretation and review of laboratory results Abnormal [facility] CBC with Auto Differentialon 10-12-2021 Absolute Eos # 0.11 [facility] th Absolute Immature Granulocyte 0.07 [facility] Absolute Lymph # 2.20 [facility] alth [facility] [facility] Basophils (Bld) [#/Vol] 0.04 10*3/uL [facility] Basophils/100 WBC (Bld) 0 % 0 - 2 % [facility] Eosinophils/100 WBC (Bld) 1 % 1 - 4 % [facility] Hematocrit (Bld) [Volume fraction] 34.6 % Low 36.3 - 47.1 % [facility] Hemoglobin.gastroin testinal spec 1 Ql (Stl) 11.2 g/dL Low 11.9 - 15.1 g/dL [facility] Immature granulocytes/100 WBC (Bld) 1 % High 0 [facility] Interpretation and review of laboratory results Abnormal [facility] Lymphocytes/100 WBC (Bld) 23 % Low 24 - 43 % [facility] MCH (RBC) [Entitic mass] 27.1 pg 25.2 - 33.5 pg [facility] MCHC (RBC) [Mass/Vol] 32.4 g/dL 28.4 - 34.8 g/dL [facility] MCV (RBC) [Entitic vol] 83.6 fL 82.6 - 102.9 fL [facility] Monocytes/100 WBC (Bld) 6 % 3 - 12 % [facility] NRBC Automated 0.0 0.0 per 100 WBC [facility] Platelet distribution width (Bld) [Ratio] 14.6 % High 11.8 - 14.4 % [facility] Platelet mean volume (Bld) [Entitic vol] 10.6 fL 8.1 - 13.5 fL [facility] Platelets (Bld) [#/Vol] 224 10*3/uL [facility] RBC (Bld) [#/Vol] 4.14 10*6/uL 3.95 - 5.11 m/uL [facility] Segmented neutrophils/100 WBC (Bld) 69 % High 36 - 65 % [facility] Segs Absolute 6.68 [facility] h WBC (Bld) [#/Vol] 9.6 10*3/uL [facility] CBC with Diffon 10-12-2021 Abs. Basophil 0.04 k/uL Normal 0.00-0.20 [facility] Comment on above: Performed By: #### U RTPRT #### [facility] [address] [place] [address] [place] [address] Asset Coordinator: Morro Hale MD Abs.Imm.Granulocyte 0.07 k/uL Normal 0.00-0.30 [facility] Comment on above: Performed By: #### U RTPRT #### [address] [place], [place] [id number] Asset Coordinator: Morro Hale MD Abs.Neutrophil (Seg) 6.68 k/uL Normal 1.50-8.10 [facility] Comment on above: Performed By: #### U RTPRT #### [address] [place], [place] [id number] Asset Coordinator: Morro Hale MD Basophils/100 WBC (Bld) 0 % Normal 0-2 [facility] Comment on above: Performed By: #### U RTPRT #### [address] [place], [place] [id number] Asset Coordinator: Morro Hale MD Eosinophils (Bld) [#/Vol] 0.11 10*3/uL Normal 0.00-0.44 [facility] Comment on above: Performed By: #### U RTPRT #### [address] [place] [address] Asset Coordinator: Morro Hale MD Eosinophils/100 WBC (Bld) 1 % Normal 1-4 [facility] Comment on above: Performed By: #### U RTPRT #### [facility] [address] [place] [place] [address] Asset Coordinator: Morro Hale MD Erythrocyte distribution width (RBC) [Ratio] 14.6 % High 11.8-14.4 [facility] Comment on above: Performed By: #### U RTPRT #### [facility] [address] [place] [address] Asset Coordinator: Morro Hale MD Hematocrit (Bld) [Volume fraction] 34.6 % Low 36.3-47.1 [facility] Comment on above: Performed By: #### U RTPRT #### [address] [place] [address] Asset Coordinator: Morro Hale MD Hemoglobin (Bld) [Mass/Vol] 11.2 g/dL Low 11.9-15.1 [facility] Comment on above: Performed By: #### U RTPRT #### [address] [place] [address] Asset Coordinator: Morro Hale MD Immature granulocytes/100 WBC (Bld) 1 % High 0 [facility] Comment on above: Performed By: #### U RTPRT #### [facility] [address] [place] [address] Dr[place], [place] [address] Asset Coordinator: Morro Hale MD Lymphocytes (Bld) [#/Vol] 2.20 10*3/uL Normal 1.10-3.70 [facility] Comment on above: Performed By: #### U RTPRT #### [facility] [address] [place] [address] [address] [id number] Asset Coordinator: Morro Hale MD Lymphocytes/100 WBC (Bld) 23 % Low 24-43 [facility] Comment on above: Performed By: #### U RTPRT #### [facility] [address] [place], [place] [id number] Asset Coordinator: Morro Hale MD MCH (RBC) [Entitic mass] 27.1 pg Normal 25.2-33.5 [facility] Comment on above: Performed By: #### U RTPRT #### [facility] [address] [place], [facility]83 Asset Coordinator: Morro Hale MD MCHC (RBC) [Mass/Vol] 32.4 g/dL Normal 28.4-34.8 [facility] Comment on above: Performed By: #### U RTPRT #### [address] [place], [facility]83 Asset Coordinator: Morro Hale MD MCV (RBC) [Entitic vol] 83.6 fL Normal 82.6-102.9 [facility] Comment on above: Performed By: #### U RTPRT #### [address] [place], [facility]83 Asset Coordinator: Morro Hale MD Monocytes (Bld) [#/Vol] 0.53 10*3/uL Normal 0.10-1.20 [facility] Comment on above: Performed By: #### U RTPRT #### [address] [place], [facility]83 Asset Coordinator: Morro Hale MD Monocytes/100 WBC (Bld) 6 % Normal 3-12 [facility] Comment on above: Performed By: #### U RTPRT #### [facility] [address] [place], [facility]83 Asset Coordinator: Morro Hale MD Neutrophil (Seg) 69 % High 36-65 [facility] Comment on above: Performed By: #### U RTPRT #### [facility] [address] [place], [facility]83 Asset Coordinator: Morro Hale MD NRBC Automated 0.0 per 100 WBC Normal 0.0 [facility] Comment on above: Performed By: #### U RTPRT #### [facility] [address] [place], [place] [id number] Asset Coordinator: oMrro Hale MD Platelet mean volume (Bld) [Entitic vol] 10.6 fL Normal 8.1-13.5 [facility] Comment on above: Performed By: #### U RTPRT #### [facility] [address] [place], [place] [id number] Asset Coordinator: Morro Hale MD Platelets (Bld) [#/Vol] 224 10*3/uL Normal 138-453 [facility] Comment on above: Performed By: #### U RTPRT #### [facility] [address] [place] [address] Asset Coordinator: Morro Hale MD RBC (Bld) [#/Vol] 4.14 10*6/uL Normal 3.95-5.11 [facility] Comment on above: Performed By: #### U RTPRT #### [facility] [address] [place], [place] [id number] Asset Coordinator: Morro Hale MD WBC (Bld) [#/Vol] 9.6 10*3/uL Normal 3.5-11.3 [facility] Comment on above: Performed By: #### U RTPRT #### [facility] [address] [place], [place] [id number] Asset Coordinator: Morro Hale MD Comp Metabolic Profon 2021 (cont.) Normal [facility] Comment on above: Result Comment: Aver age GFR for 30-39 years old: 107 mL/min/1.73sq m Chronic Kidney Disease: <60 mL/min/1.73sq m Kidney failure: <15 mL/min/1.73sq m eGFR calculated using average adult body mass. Additional eGFR calculator available at: http://[email or web address].Jellynote/multiple_crcl_2012.htm Performed By: #### U RTPRT #### [facility] [address] [place] [address] Asset Coordinator: Morro Hale MD Albumin [Mass/Vol] 3.3 g/dL Low 3.5-5.2 [facility] Comment on above: Performed By: #### U RTPRT #### [facility] [address] [place], [place] [id number] Asset Coordinator: Morro Hale MD Albumin/Glob Ratio 1.2 Normal 1.0-2.5 [facility] Comment on above: Performed By: #### U RTPRT #### [facility] [address] [place] [address] Dr[address] [place], [place] [id number] Asset Coordinator: Morro Hale MD Alkaline Phos 112 U/L High 35-104 [facility] Comment on above: Performed By: #### U RTPRT #### [facility] [address] [place], [place] [id number] Asset Coordinator: Morro Hale MD ALT [Catalytic activity/Vol] 11 U/L Normal 5-33 [facility] Comment on above: Performed By: #### U RTPRT #### [facility] [address] [place] [address] Dr[address] [place], [place] [id number] Asset Coordinator: Morro Hale MD Anion gap [Moles/Vol] 11 mmol/L Normal 9-17 [facility] Comment on above: Performed By: #### U RTPRT #### [facility] [address] [place] [address] [place] [address] Asset Coordinator: Morro Hale MD AST [Catalytic activity/Vol] 14 U/L Normal <32 [facility] Comment on above: Performed By: #### U RTPRT #### [facility] [address] [place], [place] [id number] Asset Coordinator: Morro Hale MD Bilirubin [Mass/Vol] 0.27 mg/dL Low 0.3-1.2 [facility] Comment on above: Performed By: #### U RTPRT #### [facility] [address] [place], [place] [id number] Asset Coordinator: Morro Hale MD BUN/CRE Ratio 19 Normal 9-20 [facility] Comment on above: Performed By: #### U RTPRT #### [facility] [address] [place], [place] [id number] Asset Coordinator: Morro Hale MD Calcium [Mass/Vol] 9.2 mg/dL Normal 8.6-10.4 [facility] Comment on above: Performed By: #### U RTPRT #### [facility] [address] [place], [place] [id number] Asset Coordinator: Morro Hale MD Chloride [Moles/Vol] 98 mmol/L Normal 98-107 [facility] Comment on above: Performed By: #### U RTPRT #### [facility] [address] [place], [place] [id number] Asset Coordinator: Morro Hale MD CO2 [Moles/Vol] 21 mmol/L Normal 20-31 [facility] Comment on above: Performed By: #### U RTPRT #### [facility] [address] [place], [place] 0741283 Asset Coordinator: Morro Hale MD Creatinine [Mass/Vol] 0.58 mg/dL Normal 0.50-0.90 [facility] Comment on above: Performed By: #### U RTPRT #### [facility] [address] [place] [address] Asset Coordinator: Morro Hale MD GFR, Amer >60 Normal >60 [facility] Comment on above: Performed By: #### U RTPRT #### [facility] [address] [place] [address] Asset Coordinator: Morro Hale MD GFR,non Amer >60 Normal >60 [facility] Comment on above: Performed By: #### U RTPRT #### [facility] [address] [place], [place] [id number] Asset Coordinator: Morro Hale MD Glucose [Mass/Vol] 120 mg/dL High 70-99 [facility] Comment on above: Performed By: #### U RTPRT #### [facility] [address] [place], [place] 4830383 Asset Coordinator: Morro Hale MD Potassium [Moles/Vol] 3.8 mmol/L Normal 3.7-5.3 [facility] Comment on above: Performed By: #### U RTPRT #### [facility] [address] [place], [place] 5781783 Asset Coordinator: Morro Hale MD Protein [Mass/Vol] 6.1 g/dL Low 6.4-8.3 [facility] Comment on above: Performed By: #### U RTPRT #### [facility] [address] [place], [place] [id number] Asset Coordinator: Morro Hale MD Sodium [Moles/Vol] 130 mmol/L Low 135-144 [facility] Comment on above: Performed By: #### U RTPRT #### [facility] [address] [place] [address] Asset Coordinator: Morro Hale MD Staging: Normal [facility] Comment on above: Result Comment: Stag e 1: Some kidney damage normal GFR Stage 2: Mild kidney damage GFR 60-89 Stage 3: Moderate kidney damage GFR 30-59 Stage 4: Severe kidney damage GFR 15-29 Stage 5: Severe kidney damage GFR <15 ESRD - chronic treatment by dialysis or transplant Performed By: #### U RTPRT #### [facility] [address] [place] [address] Asset Coordinator: Morro Hale MD Urea nitrogen [Mass/Vol] 11 mg/dL Normal 6-20 [facility] Comment on above: Performed By: #### U RTPRT #### [facility] [address] [place] [address] Asset Coordinator: Morro Hale MD Comprehensive Metabolic Pane argelia 10-12-2021 Albumin [Mass/Vol] 3.3 g/dL Low 3.5 - 5.2 g/dL [facility] Albumin/Globulin [Mass ratio] 1.2 {ratio} [facility] ALP (Bld) [Catalytic activity/Vol] 112 U/L High 35 - 104 U/L [facility] ALT [Catalytic activity/Vol] 11 U/L 5 - 33 U/L [facility] Anion gap [Moles/Vol] 11 mmol/L 9 - 17 mmol/L [facility] AST [Catalytic activity/Vol] 14 U/L <32 [facility] Bilirubin [Mass/Vol] 0.27 mg/dL Low 0.3 - 1.2 mg/dL [facility] Calcium [Mass/Vol] 9.2 mg/dL 8.6 - 10. 4 mg/dL [facility] Chloride [Moles/Vol] 98 mmol/L 98 - 107 mmol/L [facility] CO2 [Moles/Vol] 21 mmol/L 20 - 31 mmol/L [facility] Creatinine [Mass/Vol] 0.58 mg/dL 0.50 - 0.90 mg/dL [facility] Free PSA/Total PSA [Mass fraction] 6.1 g/dL Low 6.4 - 8.3 g/dL [facility] GFR >60 >60 mL/min [facility] GFR Non- >60 >60 mL/min [facility] Glucose [Mass/Vol] 120 mg/dL High 70 - 99 mg/dL [facility] Interpretation and review of laboratory results Abnormal [facility] Potassium [Moles/Vol] 3.8 mmol/L 3.7 - 5.3 mmol/L [facility] Sodium [Moles/Vol] 130 mmol/L Low 135 - 144 mmol/L [facility] Urea nitrogen (BldV) [Mass/Vol] 11 mg/dL 6 - 20 mg/dL [facility] Urea nitrogen/Creatinine (Bld) [Mass ratio] 19 [facility] Drug Scr, Abuse, Uron 2021 Amphetamine(s),Ur Negative Normal NEG [facility] Comment on above: Performed By: #### D AU #### [facility] [address] [place], [place] [id number] Asset Coordinator: Morro Hale MD Barbiturate(s),Ur Negative Normal NEG [facility] Comment on above: Performed By: #### D AU #### [address] [place] [id number] Asset Coordinator: Morro Hale MD Benzodiazepine(s) Negative Normal NEG [facility] Comment on above: Performed By: #### D AU #### [facility] [address] [place], [facility]83 Asset Coordinator: Morro Hale MD Buprenorphrine, Ur Negative Normal [facility] Comment on above: Performed By: #### D AU #### [address] [place], [facility]83 Asset Coordinator: Morro Hale MD Cannabinoid(s),Ur Negative Normal NEG [facility] Comment on above: Performed By: #### D AU #### [facility] [address] [place], [facility]83 Asset Coordinator: Morro Hale MD Cocaine Metabolite Negative [facility] Comment on above: Performed By: #### D AU #### [facility] [address] [place] [address] Asset Coordinator: Morro Hale MD Methadone Ql (U) Negative Normal NEG [facility] Comment on above: Performed By: #### D AU #### [facility] [address] [place], [place] 8293483 Asset Coordinator: Morro Hale MD Methamphetamine, Ur Negative Normal NEG [facility] Comment on above: Performed By: #### D AU #### [facility] [address] [place], [place] [id number] Asset Coordinator: Morro Hale MD Opiate(s), Ur Negative Normal NEG [facility] Comment on above: Performed By: #### D AU #### [facility] [address] [place], [place] 8120783 Asset Coordinator: Morro Hale MD Oxycodone, Urine Negative Normal NEG [facility] Comment on above: Performed By: #### D AU #### [facility] [address] [place] [address] Dr. [place], [place] 5143083 Asset Coordinator: Morro Hale MD Phencyclidine, Ur Negative Normal NEG [facility] Comment on above: Performed By: #### D AU #### [facility] [address] [place] [address] Dr. [place], [place] 8105383 Asset Coordinator: Morro Hale MD Propoxyphene,Urine Negative Normal NEG [facility] Comment on above: Performed By: #### D AU #### [facility] [address] [place] [address] Dr. [place], [place] 0240083 Asset Coordinator: Morro Hale MD Tricyclic antidepressants Screen Ql (U) Negative Normal [facility] Comment on above: Result Comment: Drug screen results are to be used for medical purposes only. All positive results are unconfirmed. Testing for employment or legal uses should be sent to a reference laboratory for confirmation. Performed By: #### D AU #### [facility] [address] [place], [place] [id number] Asset Coordinator: Morro Hale MD Fibrinogenon 10-12-2021 Fibrinogen 572 mg/dL High 179-518 [facility] Comment on above: Performed By: #### U RTPRT #### [facility] [address] [place] [address] Asset Coordinator: Morro Hale MD Fibrinogen 572 mg/dL High 179 - 518 mg/dL [facility] Interpretation and review of laboratory results Abnormal [facility] Glucose, Whole Bloodon 10-12 Glucose [Mass/Vol] 229 mg/dL High 74 - 100 mg/dL [facility] Interpretation and review of laboratory results Abnormal [facility] Glucose [Mass/Vol] 216 mg/dL High 74 - 100 mg/dL [facility] Interpretation and review of laboratory results Abnormal [facility] Glucose [Mass/Vol] 129 mg/dL High 74 - 100 mg/dL [facility] Interpretation and review of laboratory results Abnormal [facility] Laboratory - Chemistry and C hemistry - challengeon 10-12-2021 GFR/1.73 sq M.predicted MDRD (S/P/Bld) [Vol rate/Area] [facility] Comment on above: Average GFR for 30-3 9 years old: 107 mL/min/1.73sq m Chronic Kidney Disease: <60 mL/min/1.73sq m Kidney failure: <15 mL/min/1.73sq m eGFR calculated using average adult body mass. Additional eGFR calculator available at: http://www.[employer]/multiple_crcl_2011.htm Stage 1: Some kidney damage normal GFR Stage 2: Mild kidney damage GFR 60-89 Stage 3: Moderate kidney damage GFR 30-59 Stage 4: Severe kidney damage GFR 15-29 Stage 5: Severe kidney damage GFR <15 ESRD - chronic treatment by dialysis or transplant Lactate Dehydrogenaseon LDH [Catalytic activity/Vol] 194 U/L Normal 135-214 [facility] Comment on above: Performed By: #### U RTPRT #### [facility] [address] [place] [address] Asset Coordinator: Morro Hale MD LD 194 U/L 135 - 214 U/L [facility] Magnesiumon 10-12-2021 Interpretation and review of laboratory results Abnormal [facility] Magnesium [Mass/Vol] 4.1 mg/dL Critically high 1.6 - 2.6 mg/dL [facility] Magnesium [Mass/Vol] 4.0 mg/dL Critically high 1.6-2.6 [facility] Comment on above: Performed By: #### M G #### [facility] [address] [place] [address] [place] [address] Asset Coordinator: Morro Hale MD Interpretation and review of laboratory results Abnormal [facility] Magnesium [Mass/Vol] 4.0 mg/dL Critically high 1.6 - 2.6 mg/dL [facility] No Panel Informationon 10-12 [facility] OPERATIVE REPORTon OPERATIVE REPORT [address] OPERATIVE REPORT PATIENT NAME: SOLANGE LUCAS : 1985 MED REC NO: [id number] ROOM: [facility] ACCOUNT NO: [id number] ADMIT DATE: 10/12/2021 PROVIDER: Kang Panda MD DATE OF PROCEDURE: 10/12/2021 ADDENDUM HORTICULTURAL SPECIALTY GROWER INSIDE: ELINOR Chambers MD [id number] Doc#: [id number] Normal [facility] OPERATIVE REPORT [address] [address] OPERATIVE REPORT PATIENT NAME: STAS LUCASCELAMY Silvestre : 1985 MED REC NO: [id number] ROOM: 0203 ACCOUNT NO: [id number] ADMIT DATE: 10/12/2021 PROVIDER: Kang Panda MD [...] was extended in a semilunar fashion with outside barrel lathe operator's fingers. head was elevated. Fundal pressure [...] and cut. handed off to nursing and consulting analyst who attended the delivery. Cord blood specimen [...] be correct. KANG PANDA MD [id number] Doc#: [id number] CC: Normal [facility] PTon 10-12-2021 INR Coag (PPP) [Relative time] 1.0 {INR} Normal [facility] Comment on above: Result Comment: Non-therapeutic Range: INR = 0.9-1.2 Therapeutic Range: Moderate Anticoagulant Intensity: INR = 2.0-3.0 High Anticoagulant Intensity: INR = 2.5-3.5 Performed By: #### U RTPRT #### [facility] [address] [place] [address] [place] [address] Asset Coordinator: Morro Hale MD PT Coag (PPP) [Time] 13.1 s Normal 11.5-14.2 [facility] Comment on above: Performed By: #### U RTPRT #### [facility] [address] [place] [address] Asset Coordinator: Morro Hale MD Protein / Creatinine Ratio, Urineon 10-12-2021 Creatinine, Ur 51.4 mg/dL 28.0 - 217.0 mg/dL [facility] Protein (U) [Mass/Vol] 5 mg/dL [facility] Comment on above: No normal range esta blished. Urine Total Protein Creatinine Ratio 0.10 [facility] Protein,Tot,[place] Uron 2021 Creatinine [Mass/Vol] 51.4 mg/dL Normal 28.0-217.0 [facility] Comment on above: Performed By: #### U RTPRT #### [facility] [address] [place] [id number] Asset Coordinator: Morro Hale MD Tot Prot. Conc. 5 mg/dL Normal [facility] Comment on above: Result Comment: No n ormal range established. Performed By: #### U RTPRT #### [facility] [address] [place] [address] Dr. [place], [facility]83 Asset Coordinator: Morro Hale MD TP/Cre Ratio 0.10 Normal 0.00-0.20 [facility] Comment on above: Performed By: #### U RTPRT #### [facility] [address] [place] [address] Dr. [place], [facility]83 Asset Coordinator: Morro Hale MD Protime-INRon 10-12-2021 INR Coag (Bld) [Relative time] 1.0 {INR} [facility] Comment on above: Non-therapeutic Range: INR = 0.9-1.2 Therapeutic Range: Moderate Anticoagulant Intensity: INR = 2.0-3.0 High Anticoagulant Intensity: INR = 2.5-3.5 PT Coag (PPP) [Time] 13.1 s [facility] Surgical Pathologyon 022 Surgical Pathology (NOTE) -- Diagnosis -- A. LEFT FALLOPIAN TUBE, SALPINGECTOMY: -NO PATHOLOGIC DIAGNOSIS B. RIGHT FALLOPIAN TUBE, SALPINGECTOMY: -NO PATHOLOGIC DIAGNOSIS C. THIRD TRIMESTER TYPE PLACENTA (675 G) DEMONSTRATING: -TWO-VESSEL HYPER SPIRALED UMBILICAL CORD -UNREMARKABLE PLACENTAL MEMBRANES -THIRD TRIMESTER TYPE PLACENTAL DISC DEMONSTRATING NO SIGNIFICANT HISTOPATHOLOGIC FEATURES Murphy Valle D.O. Electronically Signed [facility]21 Clinical Information Operative Findings: L TUBE; R [...] SURGICAL PATHOLOGY CONSULTATION Patient Name: SOLANGE LUCAS [facility] Rec: [id number] Path Number: [id number] [facility] ANATOMIC PATHOLOGY [address] [place] [address]. [place], [place] [address] Normal [facility] Comment on above: Performed By: #### M G #### [facility] [address] [place] [address] [place] [address] Asset Coordinator: Morro Hale MD TYPE AND SCREENon 10-12-2021 ABO/Rh Positive [facility] Arm Band Number [id number] [facility] Expiration Date 10/15/2021,2359 [facility] Type + Screenon 10-12-2021 Type + Screen Sample Expiration 10/15/2021,2359 Arm Band Number [id number] ABO/Rh(D) O POSITIVE Antibody Screen NEGATIVE [facility] Comment on above: Performed By: #### T YS #### [facility] [address] [place] [address] [place] [address] Asset Coordinator: Morro Hale MD Uric Acidon 10-12-2021 Urate [Mass/Vol] 4.4 mg/dL Normal 2.4-5.7 [facility] Comment on above: Performed By: #### U RTPRT #### [facility] [address] [place] [address] [place] [address] Asset Coordinator: Morro Hale MD Urate [Mass/Vol] 4.4 mg/dL 2.4 - 5.7 mg/dL [facility] Urinalysison 10-12-2021 Bilirubin Urine Negative NEGATIVE [facility] Color, UA Yellow Yellow [facility] Glucose, Ur Negative NEGATIVE [facility] Ketones Ql (U) Negative NEGATIVE [facility] Leukocyte esterase Test strip Ql (U) Negative NEGATIVE [facility] Nitrite, Urine Negative NEGATIVE [facility] pH, UA 6.0 [facility] Protein, UA Negative NEGATIVE [facility] Specific [place], UA 1.015 [facility] Turbidity UA Clear Clear [facility] Urine Hgb Negative NEGATIVE [facility] Urobilinogen, Urine Normal Normal [facility] Urinalysis, Routineon 2021 Bilirubin, SemiQt,Ur Negative Normal NEG [facility] Comment on above: Performed By: #### M G #### [facility] [address] [place] [address] Asset Coordinator: Morro Hale MD Blood, Urine Negative Normal NEG [facility] Comment on above: Performed By: #### M G #### [facility] [address] [place], [facility]83 Asset Coordinator: Morro Hale MD Clarity (U) Clear Normal CLEAR [facility] Comment on above: Performed By: #### M G #### [facility] [address] [place] [id number] Asset Coordinator: Morro Hale MD Color (U) Yellow Normal YEL [facility] Comment on above: Performed By: #### M G #### [facility] [address] [place] [id number] Asset Coordinator: Morro Hale MD Glucose Ql (U) Negative Normal NEG [facility] Comment on above: Performed By: #### M G #### [address] [place] [id number] Asset Coordinator: Morro Hale MD Ketones Ql (U) Negative Normal NEG [facility] Comment on above: Performed By: #### M G #### [facility] [address] [place], [facility]83 Asset Coordinator: Morro Hale MD Leukocyte esterase Test strip Ql (U) Negative Normal NEG [facility] Comment on above: Performed By: #### M G #### [address] [place] [address] Asset Coordinator: Morro Hale MD Nitrite,Ur Negative Normal [facility] Comment on above: Performed By: #### M G #### [facility] [address] [place] [address] Asset Coordinator: Morro Hale MD PH,Ur 6.0 Normal 5.0-9.0 [facility] Comment on above: Performed By: #### M G #### [facility] [address] [place], [place] 7204483 Asset Coordinator: Morro Hale MD Protein Ql (U) Negative Normal NEG [facility] Comment on above: Performed By: #### M G #### [facility] [address] [place] [address] Dr. [place], [place] 0119283 Asset Coordinator: Morro Hale MD Spec. [place],Ur 1.015 Normal 1.010-1.02 0 [facility] Comment on above: Performed By: #### M G #### [facility] [address] [place] [address] Dr. [place], [place] 1427483 Asset Coordinator: Morro Hale MD Urobilinogen,Ur Normal Normal NORM [facility] Comment on above: Performed By: #### M G #### [facility] [address] [place] [address] Dr. [place], [place] [id number] Asset Coordinator: Morro Hale MD Urine Drug Screenon 10-13-19 22 Amphetamine Screen, Ur Negative NEGATIVE [facility] Barbiturate Screen, Ur Negative NEGATIVE [facility] Benzodiazepine Screen, Urine Negative NEGATIVE [facility] Buprenorphine Urine Negative NEGATIVE [facility] Cannabinoid Scrn, Ur Negative NEGATIVE [facility] Cocaine Metabolite, Urine Negative NEGATIVE [facility] Methadone Screen, Urine Negative NEGATIVE [facility] Methamphetamine, Urine Negative NEGATIVE [facility] Opiates, Urine Negative NEGATIVE [facility] Oxycodone Screen, Ur Negative NEGATIVE [facility] Phencyclidine, Urine Negative NEGATIVE [facility] Propoxyphene, Urine Negative NEGATIVE [facility] Tricyclic Antidepressants, Urine Negative NEGATIVE [facility] Comment on above: Drug screen results are to be used for medical purposes only. All positive results are unconfirmed. Testing for employment or legal uses should be sent to a reference laboratory for confirmation. [facility] GBS, External Resulton 09-26 GBS, External Result Positive [facility] Work Phone: Verified with Jacqueline Manuel RN [employer] Work Phone: [employer] Work Phone: US Biophysical Profileon US Biophysical Profile FINDINGS: Breathing Movements2 Gross Body Movements 2 Tone2 Qualitative amniotic fluid volume2 A single, viable intrauterine is present. Heart rate 128 bpm. Cervix is closed 4.0 cm. Cephalic presentation, posterior fundal placenta, Grade 2. IMPRESSION: Posterior fundal placenta Grade 2 and normal biophysical profile. Report reported and signed by Ruben Howell on 09/26/2021 1028 Normal [facility] Otolaryngology Surgeon OB Limitedon 09-26-2021 OB Limited FINDINGS: Comparsion [...] by Ruben Howell on 09/26/2021 0933 Normal [facility] Otolaryngology Surgeon OB Limitedon 09-18-2021 US OB Limited FINDINGS: [...] by Ruben Howell on 09/19/2021 0823 Normal [facility] CBC with Auto Differentialon 09-16-2021 Absolute Eos # 0.12 [facility] th Absolute Immature Granulocyte 0.10 [facility] Absolute Lymph # 2.44 [facility] alth Absolute [place] [facility] 0.62 [facility] Basophils (Bld) [#/Vol] 0.04 10*3/uL [facility] [employer] Basophils/100 WBC (Bld) 0 % 0 - 2 % [facility] Eosinophils/100 WBC (Bld) 1 % 1 - 4 % [facility] Hematocrit (Bld) [Volume fraction] 35.0 % Low 36.3 - 47.1 % [facility] Hemoglobin.gastroin testinal spec 1 Ql (Stl) 11.2 g/dL Low 11.9 - 15.1 g/dL [facility] Immature granulocytes/100 WBC (Bld) 1 % High 0 [facility] Interpretation and review of laboratory results Abnormal [facility] Lymphocytes/100 WBC (Bld) 21 % Low 24 - 43 % [facility] MCH (RBC) [Entitic mass] 27.5 pg 25.2 - 33.5 pg [facility] MCHC (RBC) [Mass/Vol] 32.0 g/dL 28.4 - 34.8 g/dL [facility] MCV (RBC) [Entitic vol] 86.0 fL 82.6 - 102.9 fL [facility] Monocytes/100 WBC (Bld) 5 % 3 - 12 % [facility] NRBC Automated 0.0 0.0 per 100 WBC [facility] Platelet distribution width (Bld) [Ratio] 14.2 % 11.8 - 14.4 % [facility] Platelet mean volume (Bld) [Entitic vol] 9.6 fL 8.1 - 13.5 fL [facility] Platelets (Bld) [#/Vol] 210 10*3/uL [facility] RBC (Bld) [#/Vol] 4.07 10*6/uL 3.95 - 5.11 m/uL [facility] Segmented neutrophils/100 WBC (Bld) 72 % High 36 - 65 % [facility] System Segs Absolute 8.37 [facility] [#/Vol] 11.7 10*3/uL High [facility] CBC with Diffon 09-16-2021 Abs. Basophil 0.04 k/uL Normal 0.00-0.20 [facility] Comment on above: Performed By: #### L D, CP, URI, CDP #### [facility] [address] [place] [address] Asset Coordinator: Morro Hale MD Abs.Imm.Granulocyte 0.10 k/uL Normal 0.00-0.30 [facility] Comment on above: Performed By: #### L Carla, YUMIKO, URI, CDP #### [address] [place] [address] Asset Coordinator: Morro Hale MD Abs.Neutrophil (Seg) 8.37 k/uL High 1.50-8.10 [facility] Comment on above: Performed By: #### L Carla, YUMIKO, URI, CDP #### [address] [place], [place] [address] Asset Coordinator: Morro Hale MD Basophils/100 WBC (Bld) 0 % Normal 0-2 [facility] Comment on above: Performed By: #### L Carla, YUMIKO, URI, CDP #### [address] [place] [address] Asset Coordinator: Morro Hale MD Eosinophils (Bld) [#/Vol] 0.12 10*3/uL Normal 0.00-0.44 [facility] Comment on above: Performed By: #### L Carla, YUMIKO, URI, CDP #### [address] [place], [place] [address] Asset Coordinator: Morro Hale MD Eosinophils/100 WBC (Bld) 1 % Normal 1-4 [facility] Comment on above: Performed By: #### L Carla, YUMIKO, URI, CDP #### [address] [place], [place] [address] Asset Coordinator: Morro Hale MD Erythrocyte distribution width (RBC) [Ratio] 14.2 % Normal 11.8-14.4 [facility] Comment on above: Performed By: #### L Carla, YUMIKO, URI, CDP #### [address] [place], [facility]83 Asset Coordinator: Morro Hale MD Hematocrit (Bld) [Volume fraction] 35.0 % Low 36.3-47.1 [facility] Comment on above: Performed By: #### L Carla, YUMIKO, URI, CDP #### [facility] [address] [place] [address] Dr[place], [place] [id number] Asset Coordinator: Morro Hale MD Hemoglobin (Bld) [Mass/Vol] 11.2 g/dL Low 11.9-15.1 [facility] Comment on above: Performed By: #### L Carla, YUMIKO, URI, CDP #### [facility] [address] [place] [address] Dr[place], [place] [id number] Asset Coordinator: Morro Hale MD Immature granulocytes/100 WBC (Bld) 1 % High 0 [facility] Comment on above: Performed By: #### Elliot Aguirre CP, URI, CDP #### [address] [place], [place] [id number] Asset Coordinator: Morro Hale MD Lymphocytes (Bld) [#/Vol] 2.44 10*3/uL Normal 1.10-3.70 [facility] Comment on above: Performed By: #### Elliot Aguirre CP, URI, CDP #### [address] [place], [place] 0557283 Asset Coordinator: Morro Hale MD Lymphocytes/100 WBC (Bld) 21 % Low 24-43 [facility] Comment on above: Performed By: #### Elliot Aguirre CP, URI, CDP #### [address] [place], [place] 0597983 Asset Coordinator: Morro Hale MD MCH (RBC) [Entitic mass] 27.5 pg Normal 25.2-33.5 [facility] Comment on above: Performed By: #### L YUMIKO Aguirre, URI, CDP #### [address] [place] [address] Asset Coordinator: Morro Hale MD MCHC (RBC) [Mass/Vol] 32.0 g/dL Normal 28.4-34.8 [facility] Comment on above: Performed By: #### L Carla, CP, URI, CDP #### [facility] [address] [place], [place] [id number] Asset Coordinator: Morro Hale MD MCV (RBC) [Entitic vol] 86.0 fL Normal 82.6-102.9 [facility] Comment on above: Performed By: #### L Carla, CP, URI, CDP #### [facility] [address] [place], [place] [id number] Asset Coordinator: Morro Hale MD Monocytes (Bld) [#/Vol] 0.62 10*3/uL Normal 0.10-1.20 [facility] Comment on above: Performed By: #### L Carla, YUMIKO, URI, CDP #### [address] [place], [facility]83 Asset Coordinator: Morro Hale MD Monocytes/100 WBC (Bld) 5 % Normal 3-12 [facility] Comment on above: Performed By: #### L Carla, YUMIKO, URI, CDP #### [address] [place], [place] 2358183 Asset Coordinator: Morro Hale MD Neutrophil (Seg) 72 % High 36-65 [facility] Comment on above: Performed By: #### L YUMIKO Aguirre, URI, CDP #### [facility] [address] [place] [address] Dr[place], [place] [id number] Asset Coordinator: Morro Hale MD NRBC Automated 0.0 per 100 WBC Normal 0.0 [facility] Comment on above: Performed By: #### L Carla, YUMIKO, URI, CDP #### [facility] [address] [place] [address] Asset Coordinator: Morro Hale MD Platelet mean volume (Bld) [Entitic vol] 9.6 fL Normal 8.1-13.5 [facility] Comment on above: Performed By: #### L D, CP, URI, CDP #### [facility] [address] [place], [place] [id number] Asset Coordinator: Morro Hale MD Platelets (Bld) [#/Vol] 210 10*3/uL Normal 138-453 [facility] Comment on above: Performed By: #### L D, CP, URI, CDP #### [facility] [address] [place], [place] [id number] Asset Coordinator: Morro Hale MD RBC (Bld) [#/Vol] 4.07 10*6/uL Normal 3.95-5.11 [facility] Comment on above: Performed By: #### L D, CP, URI, CDP #### [address] [place], [place] [id number] Asset Coordinator: Morro Hale MD WBC (Bld) [#/Vol] 11.7 10*3/uL High 3.5-11.3 [facility] Comment on above: Performed By: #### L Carla, YUMIKO, URI, CDP #### [address] [place] [address] Asset Coordinator: Morro Hale MD Comp Metabolic Profon 2021 (cont.) Normal [facility] Comment on above: Result Comment: Aver age GFR for 30-39 years old: 107 mL/min/1.73sq m Chronic Kidney Disease: <60 mL/min/1.73sq m Kidney failure: <15 mL/min/1.73sq m eGFR calculated using average adult body mass. Additional eGFR calculator available at: http://www.1Rebel.com/multiple_crcl_2012.htm Performed By: #### L D, CP, URI, CDP #### [facility] [address] [place] [address] Asset Coordinator: Morro Hale MD Albumin [Mass/Vol] 3.4 g/dL Low 3.5-5.2 [facility] Comment on above: Performed By: #### L Carla, YUMIKO, URI, CDP #### [facility] [address] [place], [place] 4500183 Asset Coordinator: Morro Hale MD Albumin/Glob Ratio 1.2 Normal 1.0-2.5 [facility] Comment on above: Performed By: #### L Carla, CP, URI, CDP #### [facility] [address] [place], [place] 1789883 Asset Coordinator: Morro Hale MD Alkaline Phos 98 U/L Normal 35-104 [facility] Comment on above: Performed By: #### L Carla, YUMIKO, URI, CDP #### [address] [place], [place] 0139583 Asset Coordinator: Morro Hale MD ALT [Catalytic activity/Vol] 10 U/L Normal 5-33 [facility] Comment on above: Performed By: #### L Carla, YUMIKO, URI, CDP #### [address] [place], [place] 4051183 Asset Coordinator: Morro Hale MD Anion gap [Moles/Vol] 8 mmol/L Low 9-17 [facility] Comment on above: Performed By: #### L YUMIKO Aguirre, URI, CDP #### [facility] [address] [place] [address] Dr[place], [place] [id number] Asset Coordinator: Morro Hale MD AST [Catalytic activity/Vol] 13 U/L Normal <32 [facility] Comment on above: Performed By: #### L Carla, CP, URI, CDP #### [facility] [address] [place] [address] Dr[place], [place] [id number] Asset Coordinator: Morro Hale MD Bilirubin [Mass/Vol] 0.17 mg/dL Low 0.3-1.2 [facility] Comment on above: Performed By: #### L D, CP, URI, CDP #### [facility] [address] [place], [place] 1782583 Asset Coordinator: Morro Hale MD BUN/CRE Ratio 21 High 9-20 [facility] Comment on above: Performed By: #### L D, CP, URI, CDP #### [facility] [address] [place], [place] 4812883 Asset Coordinator: Morro Hale MD Calcium [Mass/Vol] 9.1 mg/dL Normal 8.6-10.4 [facility] Comment on above: Performed By: #### L D, CP, URI, CDP #### [address] [place], [place] 1969083 Asset Coordinator: Morro Hale MD Chloride [Moles/Vol] 103 mmol/L Normal 98-107 [facility] Comment on above: Performed By: #### L D, CP, URI, CDP #### [facility] [address] [place] [address] Dr[place], [place] 6094183 Asset Coordinator: Morro Hale MD CO2 [Moles/Vol] 24 mmol/L Normal 20-31 [facility] Comment on above: Performed By: #### L D, CP, URI, CDP #### [facility] [address] [place] [address] Dr[place], [place] 9659483 Asset Coordinator: Morro Hale MD Creatinine [Mass/Vol] 0.48 mg/dL Low 0.50-0.90 [facility] Comment on above: Performed By: #### L D, CP, URI, CDP #### [facility] [address] [place] [address] Asset Coordinator: Morro Hale MD GFR, Amer >60 Normal >60 [facility] Comment on above: Performed By: #### L D, CP, URI, CDP #### [facility] [address] [place], [place] 2350083 Asset Coordinator: Morro Hale MD GFR,non Amer >60 Normal >60 [facility] Comment on above: Performed By: #### L D, CP, URI, CDP #### [facility] [address] [place], [place] 1490183 Asset Coordinator: Morro Hale MD Glucose [Mass/Vol] 162 mg/dL High 70-99 [facility] Comment on above: Performed By: #### L D, CP, URI, CDP #### [facility] [address] [place], [place] 9345183 Asset Coordinator: Morro Hale MD Potassium [Moles/Vol] 3.9 mmol/L Normal 3.7-5.3 [facility] Comment on above: Performed By: #### L D, CP, URI, CDP #### [address] [place], [place] 4797483 Asset Coordinator: Morro Hale MD Protein [Mass/Vol] 6.2 g/dL Low 6.4-8.3 [facility] Comment on above: Performed By: #### L D, CP, URI, CDP #### [address] [place], [place] 8546783 Asset Coordinator: Morro Hale MD Sodium [Moles/Vol] 135 mmol/L Normal 135-144 [facility] Comment on above: Performed By: #### L D, CP, URI, CDP #### [facility] [address] [place], [place] 7927983 Asset Coordinator: Morro Hale MD Staging: Normal [facility] Comment on above: Result Comment: Stag e 1: Some kidney damage normal GFR Stage 2: Mild kidney damage GFR 60-89 Stage 3: Moderate kidney damage GFR 30-59 Stage 4: Severe kidney damage GFR 15-29 Stage 5: Severe kidney damage GFR <15 ESRD - chronic treatment by dialysis or transplant Performed By: #### L Carla, YUMIKO, URI, CDP #### [facility] [address] [place] [address] Asset Coordinator: Morro Hale MD Urea nitrogen [Mass/Vol] 10 mg/dL Normal 6-20 [facility] Comment on above: Performed By: #### L Carla, YUMIKO, URI, CDP #### [facility] [address] [place] [address] Asset Coordinator: Morro Hale MD Comprehensive Metabolic Pane argelia 09-16-2021 Albumin [Mass/Vol] 3.4 g/dL Low 3.5 - 5.2 g/dL [facility] Albumin/Globulin [Mass ratio] 1.2 {ratio} [facility] ALP (Bld) [Catalytic activity/Vol] 98 U/L 35 - 104 U/L [facility] ALT [Catalytic activity/Vol] 10 U/L 5 - 33 U/L [facility] Anion gap [Moles/Vol] 8 mmol/L Low 9 - 17 mmol/L [facility] AST [Catalytic activity/Vol] 13 U/L <32 [facility] Bilirubin [Mass/Vol] 0.17 mg/dL Low 0.3 - 1.2 mg/dL [facility] Calcium [Mass/Vol] 9.1 mg/dL 8.6 - 10. 4 mg/dL [facility] Chloride [Moles/Vol] 103 mmol/L 98 - 107 mmol/L [facility] CO2 [Moles/Vol] 24 mmol/L 20 - 31 mmol/L [facility] Creatinine [Mass/Vol] 0.48 mg/dL Low 0.50 - 0.90 mg/dL [facility] Free PSA/Total PSA [Mass fraction] 6.2 g/dL Low 6.4 - 8.3 g/dL [facility] GFR >60 >60 mL/min [facility] GFR Non- >60 >60 mL/min [facility] Glucose [Mass/Vol] 162 mg/dL High 70 - 99 mg/dL [facility] Interpretation and review of laboratory results Abnormal [facility] Potassium [Moles/Vol] 3.9 mmol/L 3.7 - 5.3 mmol/L [facility] Sodium [Moles/Vol] 135 mmol/L 135 - 144 mmol/L [facility] Urea nitrogen (BldV) [Mass/Vol] 10 mg/dL 6 - 20 mg/dL [facility] Urea nitrogen/Creatinine (Bld) [Mass ratio] 21 High [facility] Laboratory - Chemistry and C hemistry - challengeon 09-16-2021 GFR/1.73 sq M.predicted MDRD (S/P/Bld) [Vol rate/Area] [facility] Comment on above: Average GFR for 30-3 9 years old: 107 mL/min/1.73sq m Chronic Kidney Disease: <60 mL/min/1.73sq m Kidney failure: <15 mL/min/1.73sq m eGFR calculated using average adult body mass. Additional eGFR calculator available at: http://www.Billfish Software/multiple_crcl_2011.htm Stage 1: Some kidney damage normal GFR Stage 2: Mild kidney damage GFR 60-89 Stage 3: Moderate kidney damage GFR 30-59 Stage 4: Severe kidney damage GFR 15-29 Stage 5: Severe kidney damage GFR <15 ESRD - chronic treatment by dialysis or transplant Lactate Dehydrogenaseon 09-05 LDH [Catalytic activity/Vol] 174 U/L Normal 135-214 [facility] Comment on above: Performed By: #### L D, CP, URI, CDP #### [facility] [address] [place] [address] Asset Coordinator: Morro Hale MD LD 174 U/L 135 - 214 U/L [facility] No Panel Informationon 09-16 [facility] Protein / Creatinine Ratio, Urineon 09-16-2021 Creatinine, Ur 93.8 mg/dL 28.0 - 217.0 mg/dL [facility] Protein (U) [Mass/Vol] 7 mg/dL [facility] Comment on above: No normal range esta blished. Urine Total Protein Creatinine Ratio 0.07 [facility] Protein,Tot,Derby Uron 2021 Creatinine [Mass/Vol] 93.8 mg/dL Normal 28.0-217.0 [facility] Comment on above: Performed By: #### U RTPRT #### [facility] [address] [place], [place] [id number] Asset Coordinator: Morro Hale MD Tot Prot. Conc. 7 mg/dL Normal [facility] Comment on above: Result Comment: No n ormal range established. Performed By: #### U RTPRT #### [facility] [address] [place], [place] 4204583 Asset Coordinator: Morro Hale MD TP/Cre Ratio 0.07 Normal 0.00-0.20 [facility] Comment on above: Performed By: #### U RTPRT #### [facility] [address] [place] [address] Dr[place], [place] 4404083 Asset Coordinator: Morro Hale MD Uric Acidon 09-16-2021 Urate [Mass/Vol] 2.8 mg/dL Normal 2.4-5.7 [facility] Comment on above: Performed By: #### L D, CP, URI, CDP #### [facility] [address] [place] [address] Dr[place], [place] 3559483 Asset Coordinator: Morro Hale MD Urate [Mass/Vol] 2.8 mg/dL 2.4 - 5.7 mg/dL [facility] US OB Limitedon 09-07-2021 US OB Limited FINDINGS: Single viable intrauterine . BEN 17.0 cm. Closed cervix 4.3 cm length. Cephalic presentation. IMPRESSION: 1. Single viable intrauterine , cephalic presentation. 2. BEN 17.0 cm. Report reported and signed by Ruben Howell on 09/07/2021 1019 Normal [facility] Otolaryngology Surgeon COVID Quick Testingon 2020 Result Negative [facility] Other Quick Strepon 06-14-2021 S. pyogenes Org specific cx Ql (Throat) Negative [facility] Other Quick Strep [facility] Other [facility] LABon 04-19-2021 [facility] LAB Normal [facility] Comment on above: Order Comment: @[facility] Test Name: INHERITEST CARRIER SCREEN [id number] CPT [id number] Result Comment: See report. Scanned copy available in EMR. PERFORMED BY: [address] [address] PATHOLOGIST SUBSTANCE ABUSE THERAPIST FILEMON VARGAS M.D. Performed By: #### [facility] #### [place] [id number] [facility] ABO, External Resulton 03-22 ABO, External Result o [employer] Work Phone: C. Trachomatis, External Res ulton 03-22-2021 C. Trachomatis, External Result Negative [employer] Work Phone: HIV, External Resulton 03-22 HIV, External Result Non-Reactive [employer] Phone: Hepatitis B, External Result on 03-22-2021 Hep B, External Result Non-Reactive [employer] Phone: N. Gonorrhoeae, External Res ulton 03-22-2021 N. Gonorrhoeae, External Result Negative [employer] Phone: No Panel InformationOrdered By: Nerissa Lerma on 03-22-2021 [facility] No Panel Informationon 03-22 Verified with Jacqueline Manuel RN [employer] Phone: [employer] Work Phone: RPR, External Labon 03-22-20 21 RPR, External Result Non-Reactive [employer] Phone: Rh Factor, External ResultOr dered By: Nerissa Lerma on 03-22-2021 Rh Factor, External Result + [facility] [facility] Rubella Titer, External Resu lton 03-22-2021 Rubella Titer, External Result immune [employer] Phone: Coding Summaryon 04-23-2017 Coding Summary CODING DATE: 017 [facility] STATUS: Home PAYOR: [employer] ADMIT [...] Mccracken Date Saved: 04/23/2017 01:25 pm Normal [facility] ED Clinical Summaryon 2016 ED Clinical Summary [facility] ? Urgent [id number] [place] [address] clinical SummaryPERSON INFORMATIONName: SOLANGE BROWER Age: 32 Years Sex: FEMALEDOB: [birth year] MRN: Acct#:Visit Reason: Lower leg pain-swelling; LEFT LEG PAIN AND SWELLING Arrival:04/12/17 12:10:00 Discharge: 04/12/17 12:37:00LOS: 000 00:27 Check In: 04/12/17 12:10:00 Checkout: 04/12/17 12:37:00Address:[address] [place] [id number]: Edward McqueenPROAZEEM INFORMATIONProvider Role Assigned UnassignedBentley Amin PA-C ED PA 04/12/17 12:23:22VITALS INFORMATIONVital Sign Triage LatestTemperature TympanicTemperature Temporal ArteryPulse Rate 97 bpm 97 bpmO2 Sat 98 % 98 %Respiratory Rate 20 br/min 20 br/minBlood Pressure 120 mmHg/90 mmHg 120 mmHg/90 mmHgMEDICAL INFORMATIONMedications Given:Allergy Information:PHYSICIAN DOCUMENTATIONDISCHARGE INFORMATION:Discharge Disposition: HomeDischarge Location: HomePATIENT EDUCATION INFORMATIONInstructions: Muscle Strain, Qzgi-nf-KuziAjnisu-Up:With: Address: When:Rober Loya [address] [place] [address], [address] [place], [phone] Business (2) Within 3 to 5 days, only if neededWith: Address: When:Edward Mcqueen [facility] [place] [id number] Business (1) Within 3 to 5 daysDIAGNOSIS:Muscle strain of lower legComment: Normal [facility] ED Note - Physicianon 2016 ED Note - Physician Patient: NILTON BROWER : 32 years Sex: FEMALE : [birth year]Associated Diagnoses: Muscle strain of lower legAuthor: Bentley Amin PA-CHistory of Present IllnessThis is a 32 year old here today with concerns of feeling a pop in her calf while 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 [...] mmHg SpO2 98 % O2 Flow 0 L/min.Oqtphtyqfbph23/06/17 12:15 EDT Height/Length Dosing 157.4 cm Weight [...] ice and elevate. OTC Motrin for pain, Chula as needed for severe pain. Return with new, or worsening symptoms, or symptoms failing to improve as expected and the patient voiced their understanding. Questions answered. Follow-up with their family doctor as directed, return here sooner as needed. See ortho as needed.Impression and PlanDiagnosisMuscle strain of lower leg ([id number] S86.919A, Discharge, Medical)PlanCondition: Stable.Disposition: Discharged: Time 04/12/17 12:36:00, to home.Prescriptions: Launch prescriptionsPharmacy:[place] 5 mg-325 mg oral tablet (Prescribe): 1 tab(s), PO, q6hr, for 3 day(s), PRN: for pain, 12 tab(s), 0 Refill(s).Patient was given the following educational materials: Muscle Strain, Spsz-ht-Zvul, Muscle Strain, Xyeu-go-Axvu.Follow up with: Edward Mcqueen Within 3 to [...] 04/12/2017 12:51 EDT] Bentley Amin PA-C Normal [facility] ED Patient Summaryon 017 ED Patient Summary [facility] ? Urgent [address] [place] [address] [id number] pATIENT DISCHARGE INSTRUCTIONSPatient InformationName: SOLANGE BROWER Age: 32 YearsDate of : [birth year]MRN: [id number] For Visit: Lower leg pain-swelling; LEFT LEG PAIN AND SWELLINGArrival Time: 04/12/17 12:10:00Phone: Primary Care Physician: Pat Mcqueen Physician: Bentley AminCComment:Patient EducationWith: Address: When:Rober ValadezShalini [address] [place] [address] Business (2) Within 3 to 5 days, only if neededWith: Address: When:Edward Mcqueen [address] [place] [address] Business (1) Within 3 to 5 daysMuscle [...] Reviewed: 01/21/2014Luz Maria Interactive Patient Education ?2016 Sk[employer]it.Medication Information:The exam and treatment you received today in the [facility] Emergency Department were for an urgent problem and are not intended as complete care. It is important for you to follow up with a doctor, nurse practitioner, or physician?s special education teaching assistant for ongoing care. If your symptoms [...] number so we can reach you if necessary.[facility] Emergency Department has provided you with a complete list of medications post discharge. Please inform your primary care physician/provider of your visit and for further instruction on these medications. Any specific questions regarding your chronic medications and dosages should be discussed with your primary care physician(s) and/or pharmacist. New MedicationsPrinted Prescriptionsacetaminophen-h ydrocodone (Chula 5 mg-325 mg oral tablet) 1 tab(s) Oral Every 6 hours as needed for pain for 3 Days. Refills: 0.Visit InformationVisit Diagnosis:Diagnoses This Visit Lower leg pain-swelling ([id number]) Muscle strain of lower leg (S86.919A)If you [...] Disease Control and Prevention March 2014 Normal [facility] Urgent Care [place] 017 Urgent Care Record [facility] ? Urgent [id number] [place] [id number] pATIENT DISCHARGE INSTRUCTIONSPatient InformationName: SOLANGE BROWER Age: 32 YearsDate of : [birth year]MRN: [id number] For Visit: Lower leg pain-swelling; LEFT LEG PAIN AND SWELLINGArrival Time: 04/12/17 12:10:00Phone: Primary Care Physician: Edward McqueenAttlyle Physician: Bentley Amin PA-CComment:Visit Diagnosis:Diagnoses This Visit Lower leg pain-swelling ([id number]) Muscle strain of lower leg (S86.919A)If you [...] sign any legal documentsWith: Address: When:Rober Loya [address] [place] [address] Business (2) Within 3 to 5 days, only if neededWith: Address: When:Edward Mcqueen [address] [place], [place] [phone] Business (1) Within 3 to 5 daysMedication Information:The exam and treatment you received today in the [facility] Urgent Care were for an urgent problem and are not intended as complete care. It is important for you to follow up with a doctor, nurse practitioner, or physician?s special education teaching assistant for ongoing care. If your symptoms [...] number so we can reach you if necessary.[facility] has provided you with a complete list of medications post discharge. Please inform your primary care physician/provider of your visit and for further instruction on these medications. Any specific questions regarding your chronic medications and dosages should be discussed with your primary care physician(s) and/or pharmacist. New MedicationsPrinted Prescriptionsacetaminophen-h ydrocodone (Chula 5 mg-325 mg oral tablet) 1 tab(s) [...] Reviewed: 01/21/2014Luz Maria Interactive Patient Education ?2016 [employer]. Viruses or BacteriaWhat?s got you sick?Antibiotics only [...] for Disease Control and Prevention March 2014 [place] Vital Signs Date Time Vital Sign Value Performing Clinician Facility 08-24-2024 [id number] Body height 157.5 cm [facility] DO Work Phone: [facility] 08-24-2024 09:02-0500 Body mass index (BMI) [Ratio] 29.29 kg/m2 [facility] DO Work Phone: [facility] 08-24-2024 09:02-0500 Body weight 72.63 kg Betito Carola DO Work Phone: [facility] 08-24-2024 09:02-0500 Diastolic blood pressure 70 mm[Hg] Betito Carola DO Work Phone: [facility] 08-24-2024 09:02-0500 Systolic blood pressure 110 mm[Hg] Betito Carola DO Work Phone: [facility] 08-18-2024 13:27-0500 Body height 157.48 cm [facility] 08-18-2024 13:27-0500 Body mass index (BMI) [Ratio] 29.3 kg/m2 [facility] 08-18-2024 13:27-0500 Body weight 72.8 kg [facility] 08-18-2024 13:27-0500 Diastolic blood pressure 86 mm[Hg] [facility] 08-18-2024 13:27-0500 Heart rate 73 /min [facility] 08-18-2024 13:27-0500 Respiratory rate 12 /min [facility] 08-18-2024 13:27-0500 Systolic blood pressure 142 mm[Hg] [facility] 07-31-2024 10:52-0500 Body height 157.5 cm Crystal Calhoun MD Work Phone: [facility] 07-31-2024 10:52-0500 Body mass index (BMI) [Ratio] 29.07 kg/m2 Crystal Calhoun MD Work Phone: [facility] 07-31-2024 10:52-0500 Body weight 72.12 kg Crystal Calhoun MD Work Phone: [facility] 07-31-2024 10:52-0500 Diastolic blood pressure 82 mm[Hg] Crystal Calhoun MD Work Phone: [facility] 07-31-2024 10:52-0500 Heart rate 73 /min Crystal Calhoun MD Work Phone: [facility] 07-31-2024 10:52-0500 SaO2% (BldA) [Mass fraction] 100 % Crystal Calhoun MD Work Phone: [facility] 07-31-2024 10:52-0500 Systolic blood pressure 110 mm[Hg] Crystal Calhoun MD Work Phone: [facility] 07-16-2024 14:34-0500 Body mass index (BMI) [Ratio] 29.63 kg/m2 Dianne Rosaleso CNM Work Phone: [facility] 07-16-2024 14:34-0500 Body weight 73.48 kg Dianne Rosaleso CNM Work Phone: [facility] 07-16-2024 14:34-0500 Diastolic blood pressure 70 mm[Hg] Dianne Connieo CNM Work Phone: [facility] 07-16-2024 14:34-0500 Systolic blood pressure 112 mm[Hg] Dianne Floro CNM Work Phone: [facility] 03-23-2024 10:36-0400 Body height 157.5 cm Mick Yematthewick PA Work Phone: [facility] 03-23-2024 10:36-0400 Body mass index (BMI) [Ratio] 29.95 kg/m2 Mick Yenrick PA Work Phone: [facility] 03-23-2024 10:36-0400 Body weight 74.3 kg Mick Yenrick PA Work Phone: [facility] 03-23-2024 10:36-0400 Diastolic blood pressure 72 mm[Hg] Mick Yenrick PA Work Phone: [facility] 03-23-2024 10:36-0400 Heart rate 75 /min Mick Yenrick PA Work Phone: [facility] 03-23-2024 10:36-0400 SaO2% (BldA) [Mass fraction] 100 % Mick Yenrick PA Work Phone: [facility] 03-23-2024 10:36-0400 Systolic blood pressure 112 mm[Hg] Mick DE LA PAZ Work Phone: [facility] 12-23-2023 15:27-0400 Body height 157.48 cm [facility] 12-23-2023 15:27-0400 Body mass index (BMI) [Ratio] 30.2 kg/m2 [facility] 12-23-2023 15:27-0400 Body weight 74.84 kg [facility] 12-23-2023 15:27-0400 Diastolic blood pressure 78 mm[Hg] [facility] 12-23-2023 15:27-0400 Heart rate 67 /min [facility] 12-23-2023 15:27-0400 Respiratory rate 12 /min [facility] 12-23-2023 15:27-0400 Systolic blood pressure 122 mm[Hg] [facility] 10-14-2021 07:24-0400 Body temperature 97.39 [degF] Bryanna Pool BISQUE FINISHER - CNM Work Phone: [facility] 10-14-2021 07:24-0400 Diastolic blood pressure 75 mm[Hg] Bryanna Pool BISQUE FINISHER - CNM Work Phone: [facility] 10-14-2021 07:24-0400 Heart rate 67 /min Bryanna Pool BISQUE FINISHER - CNM Work Phone: [facility] 10-14-2021 07:24-0400 Respiratory rate 16 /min Bryanna Pool BISQUE FINISHER - CNM Work Phone: [facility] 10-14-2021 07:24-0400 Systolic blood pressure 119 mm[Hg] Bryanna Pool BISQUE FINISHER - CNM Work Phone: [facility] 10-13-2021 06:01-0400 SaO2% (BldA) [Mass fraction] 96 % Bryanna Pool BISQUE FINISHER - CNM Work Phone: [facility] 10-12-2021 10:22-0400 Body mass index (BMI) [Ratio] 52.13 kg/m2 Bryanna Pool BISQUE FINISHER - CNM Work Phone: [facility] 10-12-2021 10:22-0400 Body weight 129.28 kg Bryanna Pool BISQUE FINISHER - CNM Work Phone: [facility] 10-07-2021 14:56-0400 Diastolic blood pressure 64 mm[Hg] Dianne Floro BISQUE FINISHER - CNM Work Phone: [facility] 10-07-2021 14:56-0400 Heart rate 76 /min Dianne Rosaleso BISQUE FINISHER - CNM Work Phone: [facility] 10-07-2021 14:56-0400 Systolic blood pressure 123 mm[Hg] Dianne Floro BISQUE FINISHER - CNM Work Phone: [facility] 10-07-2021 14:23-0400 Respiratory rate 18 /min Dianne Rosaleso BISQUE FINISHER - CNM Work Phone: [facility] 09-30-2021 14:03-0400 Body height 157.5 cm Dianne Rosaleso BISQUE FINISHER - CNM Work Phone: [facility] 09-30-2021 14:03-0400 Body mass index (BMI) [Ratio] 51.58 kg/m2 Dianne Rosaleso BISQUE FINISHER - CNM Work Phone: [facility] 09-30-2021 14:03-0400 Body temperature 98.01 [degF] Dianne Floro BISQUE FINISHER - CNM Work Phone: [facility] 09-30-2021 14:03-0400 Body weight 127.91 kg Dianne Rosaleso BISQUE FINISHER - CNM Work Phone: [facility] 09-23-2021 15:35-0400 Body temperature 98.2 [degF] Dianne Connieo BISQUE FINISHER - CNM Work Phone: [facility] 09-23-2021 15:35-0400 Diastolic blood pressure 73 mm[Hg] Dianne Floro BISQUE FINISHER - CNM Work Phone: [facility] 09-23-2021 15:35-0400 Heart rate 96 /min Dianne Dang BISQUE FINISHER - CNM Work Phone: [facility] 09-23-2021 15:35-0400 Respiratory rate 18 /min Dianne Dang BISQUE FINISHER - CNM Work Phone: [facility] 09-23-2021 15:35-0400 Systolic blood pressure 118 mm[Hg] Dianne Dang BISQUE FINISHER - CNM Work Phone: [facility] 09-16-2021 15:59-0500 Diastolic blood pressure 72 mm[Hg] Dianne Dang BISQUE FINISHER - CNM Work Phone: [facility] 09-16-2021 15:59-0500 Heart rate 77 /min Dianne Dang BISQUE FINISHER - CNM Work Phone: [facility] 09-16-2021 15:59-0500 Systolic blood pressure 141 mm[Hg] Dianne Dang BISQUE FINISHER - CNM Work Phone: [facility] 09-16-2021 14:25-0500 Body height 157.5 cm Dianne Dang BISQUE FINISHER - CNM Work Phone: [facility] 09-16-2021 14:25-0500 Body mass index (BMI) [Ratio] 49.38 kg/m2 Dianne Dang BISQUE FINISHER - CNM Work Phone: [facility] 09-16-2021 14:25-0500 Body temperature 97.81 [degF] Dianne Dang BISQUE FINISHER - CNM Work Phone: [facility] 09-16-2021 14:25-0500 Body weight 122.47 kg Dianne Dang BISQUE FINISHER - CNM Work Phone: [facility] 09-16-2021 14:25-0500 Respiratory rate 16 /min Dianne Dang BISQUE FINISHER - CNM Work Phone: [facility] 09-09-2021 14:06-0500 Diastolic blood pressure 68 mm[Hg] Dianne Dang APRN - CNM Work Phone: [facility] 09-09-2021 14:06-0500 Heart rate 78 /min Dianne Dang BISQUE FINISHER - CNM Work Phone: [facility] 09-09-2021 14:06-0500 Systolic blood pressure 124 mm[Hg] Dianne Dang APRN - CNM Work Phone: [facility] 09-09-2021 14:04-0500 Body height 158.8 cm Dianne Dang APRN - CNM Work Phone: [facility] 09-09-2021 14:04-0500 Body mass index (BMI) [Ratio] 49.5 kg/m2 Dianne Dang BISQUE FINISHER - CNM Work Phone: [facility] 09-09-2021 14:04-0500 Body temperature 98.01 [degF] Dianne Dang BISQUE FINISHER - CNM Work Phone: [facility] 09-09-2021 14:04-0500 Body weight 124.74 kg Dianne Dang APRN - CNM Work Phone: [facility] 09-09-2021 14:04-0500 Respiratory rate 18 /min Dianne Dang BISQUE FINISHER - CNM Work Phone: [facility] 06-14-2021 15:00-0500 Body height 157.48 cm Margie Fish Other [facility] Other 06-14-2021 15:00-0500 Body mass index (BMI) [Ratio] 45.72 kg/m2 Margie Fish Other [facility] Other 06-14-2021 15:00-0500 Body temperature 98.3 [degF] Margie Fish Other [facility] Other 06-14-2021 15:00-0500 Body weight 113.4 kg Margie Fish Other [facility] Other 06-14-2021 15:00-0500 Respiratory rate 18 /min Margie Fish Other [facility] Other 06-14-2021 15:00-0500 SaO2% (BldA) [Mass fraction] 98 % Margie Fish Other [facility] Other Encounters Encounter Date Encounter Type Care Provider Facility Start: 08-27-2024 End: 08-27-2024 Office outpatient visit 25 minutes Blane Healy MD Work Phone: [facility] Comment on above: LOC (loss of conscio usness) (CMS-HCC) (Primary Dx) Start: 08-27-2024 End: 08-27-2024 ambulatory [facility] Start: 08-24-2024 End: 08-24-2024 Bamboo flowsheet Betito Carola DO Work Phone: [facility] Start: 08-24-2024 End: 08-24-2024 Bamboo flowsheet Betito Carola DO Work Phone: [facility] Start: 08-24-2024 End: 08-24-2024 Office outpatient visit 15 minutes Betito Carola DO Work Phone: [facility] Comment on above: Irregular menstrual cycle; Menorrhagia with irregular cycle; PCOS (polycystic ovarian syndrome) Start: 08-24-2024 End: 08-24-2024 ambulatory BETITO CAROLA Not Available Start: 08-18-2024 End: 08-18-2024 ambulatory [facility] Work Phone: Start: 08-18-2024 End: 08-18-2024 Patient encounter procedure [facility] Work Phone: Start: 08-17-2024 Non-patient / Non-visit [facility] Phys[facility] Work Phone: Start: 07-31-2024 End: 07-31-2024 Office outpatient visit 15 minutes Nelda Paniagua MD Work Phone: [facility] Comment on above: Palpitations (Primar y Dx); PFO (patent foramen ovale); S/P percutaneous patent foramen ovale closure; TIA (transient ischemic attack) Start: 07-30-2024 End: 07-30-2024 Telephone encounter Emilie Almazan DIE MECHANIC [facility] Start: 07-27-2024 End: 07-28-2024 Telephone encounter Estefania Mitchell [facility] Start: 07-16-2024 End: 07-16-2024 Office outpatient visit 15 minutes Dianne L Floro CNM Work Phone: [facility] Comment on above: Inclusion cyst (Prim rajesh Dx) Start: 07-16-2024 End: 07-16-2024 ambulatory DIANNE L FLORO Not Available Start: 07-16-2024 End: 07-16-2024 Bamboo flowsheet Dianne L Floro CNM Work Phone: [facility] Start: 07-16-2024 End: 07-16-2024 Bamboo flowsheet Dianne L Floro CNM Work Phone: [facility] Start: 06-18-2024 ambulatory MICK JETT [facility] Start: 06-17-2024 End: 06-17-2024 Telephone encounter Mick DE LA PAZ Work Phone: [facility] Start: 05-26-2024 End: 06-12-2024 Telephone encounter Nohemy Kingsley RN [facility] Start: 04-27-2024 End: 04-27-2024 ambulatory MICK JETT [facility] Start: 03-23-2024 End: 03-23-2024 Office outpatient visit 25 minutes Mick DE LA PAZ Work Phone[facility] Comment on above: PFO (patent foramen ovale) (Primary Dx); S/P percutaneous patent foramen ovale closure Start: 03-23-2024 End: 03-23-2024 ambulatory MICK JETT [facility] Start: 03-13-2024 End: 03-13-2024 ambulatory [facility] Start: 03-11-2024 End: 03-11-2024 Orders Only Trinidad Ludwig RN [facility] Comment on above: PFO (patent foramen ovale) (Primary Dx); History of delivery Start: 03-05-2024 End: 03-05-2024 Telephone encounter Mick DE LA PAZ Work Phone: [facility] Comment on above: PFO Closure Reminder Start: 02-17-2024 End: 02-17-2024 Phys/qhp telephone evaluation 11-20 min Dante Degroot MD [facility] Comment on above: TIA (transient ische kunal attack) (Primary Dx) Start: 02-17-2024 End: 02-17-2024 ambulatory [facility] Start: 02-04-2024 End: 02-04-2024 Chart abstracting Dante Degroot MD Work Phone: [facility] Start: 01-29-2024 End: 01-29-2024 Office outpatient visit 25 minutes Blane Healy MD Work Phone: [facility] Comment on above: TIA (transient ische kunal attack) (Primary Dx) Start: 01-29-2024 End: 01-29-2024 ambulatory ZONIA LUANN [facility] Start: 01-27-2024 End: 01-27-2024 ambulatory DIANNE DANG Not Available Start: 01-13-2024 End: 01-13-2024 ambulatory RAQUEL NATION [facility] Start: 12-29-2023 ambulatory EDWARD MCQUEEN [facility] Start: 12-26-2023 ambulatory MICK JETT [facility] Start: 12-26-2023 End: 12-26-2023 Documentation procedure Mick DE LA PAZ Work Phone: [facility] Start: 12-26-2023 End: 12-27-2023 Telephone encounter Maki David RN [facility] Start: 12-23-2023 End: 12-23-2023 ambulatory [facility] Work Phone: Start: 12-23-2023 End: 12-23-2023 Patient encounter procedure [facility] Work Phone: Start: 12-20-2023 End: 12-20-2023 ambulatory [facility] Start: 12-18-2023 End: 12-18-2023 Telephone encounter Nohemy Kingsley RN [facility] Start: 12-18-2023 ambulatory EDWARD MCQUEEN [facility] Start: 12-18-2023 Non-patient / Non-visit [facility] Work Phone: Start: 12-17-2023 End: 12-26-2023 Emergency department patient visit EDWARD Zofia MCQUEEN [facility] Start: 12-17-2023 Non-patient / Non-visit [facility] Phys[facility] Work Phone: Start: 12-16-2023 End: 12-16-2023 ambulatory DIANNE DANG Not Available Start: 05-03-2023 End: 05-03-2023 ambulatory Edward Mcqueen Other [facility] Other Start: 05-03-2023 Office outpatient vi sit 15 minutes Edward Mcqueen [facility] Start: 04-23-2023 End: 04-23-2023 ambulatory Edward Richar Other [facility] Other Start: 04-23-2023 Telephone encounter Edward Mcqueen [facility] Start: 04-22-2023 End: 04-22-2023 ambulatory Edward Mcqueen Other [facility] Other Start: 04-22-2023 Telephone encounter [facility] Start: 04-09-2023 End: 04-09-2023 ambulatory Edward Mcqueen Other [facility] Other Start: 04-09-2023 Office outpatient vi sit 15 minutes Edward Mcqueen [facility] Start: 09-20-2022 End: 09-20-2022 ambulatory Edward Mcqueen Other [facility] Other Start: 09-20-2022 Telephone encounter Edward HAJI [facility] Start: 08-29-2022 End: 08-29-2022 ambulatory Edward Mcqueen Other [facility] Other Start: 08-29-2022 Office outpatient vi sit 15 minutes Edward Mcqueen [facility] Start: 08-17-2022 Telephone encounter Edward HAJI [facility] Start: 08-17-2022 End: 08-18-[address] EDWARD MCQUEEN Facility:[facility] Start: 08-17-2022 End: 08-18-2022 ambulatory BERTO ZIMMERMAN Facility:[facility] Start: 10-12-2021 End: 10-14-2021 Evaluation and management of inpatient [place] Zofia [facility] Start: 10-12-2021 End: 10-14-2021 Evaluation and management of inpatient Bryanna E Os[place] ESTHER ELINOR Work Phone: [facility] Labor and Delivery Comment on above: Born by sec tion (Primary Dx) Start: 10-07-2021 End: 10-07-2021 ambulatory [facility] Start: 10-07-2021 End: 10-07-2021 Subsequent hospital visit by physician Dianne Clark CNM Work Phone: [facility] Labor and Delivery Comment on above: Diet controlled gest ational diabetes mellitus (GDM) in third trimester Start: 09-30-2021 End: 09-30-2021 ambulatory [facility] Start: 09-30-2021 End: 09-30-2021 Subsequent hospital visit by physician Dianne Clark CNM Work Phone: [facility] Start: 09-23-2021 End: 09-23-2021 ambulatory [facility] Start: 09-23-2021 End: 09-23-2021 Subsequent hospital visit by physician Dianne Clark CNM Work Phone: [facility] Comment on above: Diet controlled gest ational diabetes mellitus (GDM) in third trimester Start: 09-16-2021 End: 09-16-2021 ambulatory [facility] Start: 09-16-2021 End: 09-16-2021 Subsequent hospital visit by physician Dianne Clark CNM Work Phone: [facility] Comment on above: Diet controlled gest ational diabetes mellitus (GDM) in third trimester Start: 09-09-2021 End: 09-09-2021 ambulatory [facility] Start: 09-09-2021 End: 09-09-2021 Subsequent hospital visit by physician Dianne Dang APRN - ELINOR [facility] Comment on above: Diet controlled gest ational diabetes mellitus (GDM) in third trimester Start: 09-02-2021 End: 09-02-2021 ambulatory [facility] Start: 06-14-2021 (URG) Urgent Care Visit Margie aguirre [facility] Start: 06-14-2021 End: 06-14-2021 ambulatory Margie Fish Other [facility] Other Start: 04-12-2017 End: 04-12-2017 Ambulatory Bentley Amin Facility:[facility] Procedures Date Procedure Procedure Detail Performing Clinician Start: 07-31-2024 Ecg routine ecg w/le ast 12 lds w/i&r Crystal Calhoun MD Work Phone: Start: 02-17-2024 Follow-up visit Follow-up Dante DEGROOT Start: 10-14-2021 GLUCOSE, WHOLE BLOOD Va tyler Rosaleso BISQUE FINISHER - CNM Work Phone: Start: 10-13-2021 GLUCOSE, WHOLE BLOOD Va tyler Rosaleso BISQUE FINISHER - CNM Work Phone: Start: 10-13-2021 GLUCOSE, WHOLE BLOOD Va tyler Rosaleso BISQUE FINISHER - CNM Work Phone: Start: 10-13-2021 GLUCOSE, WHOLE BLOOD Va tyler Rosaleso BISQUE FINISHER - CNM Work Phone: Start: 10-13-2021 Assay of magnesium Mendy karo Connieo BISQUE FINISHER - CNM Work Phone: Start: 10-13-2021 Blood count hemoglobin Dianne Connieo BISQUE FINISHER - CNM Work Phone: Start: 10-13-2021 GLUCOSE, WHOLE BLOOD Va tyler Rosaleso BISQUE FINISHER - CNM Work Phone: Start: 10-13-2021 Assay of magnesium Mendy karo Connieo BISQUE FINISHER - CNM Work Phone: Start: 10-12-2021 GLUCOSE, WHOLE BLOOD Va tyler Rosaleso BISQUE FINISHER - CNM Work Phone: Start: 10-12-2021 GLUCOSE, WHOLE BLOOD Va tyler Rosaleso BISQUE FINISHER - CNM Work Phone: Start: 10-12-2021 GLUCOSE, WHOLE BLOOD Va tyler Rosaleso BISQUE FINISHER - CNM Work Phone: Start: 10-12-2021 Antibody screen Kathlee n Pool BISQUE FINISHER - CNM Work Phone: Start: 10-12-2021 Blood typing serolog ic abo Bryanna E Pool BISQUE FINISHER - CNM Work Phone: Start: 10-12-2021 End: 10-12-2021 Comprehensive metabolic panel Bryanna E Pool BISQUE FINISHER - CNM Work Phone: Start: 10-12-2021 Drug screen class list a Bryanna Barth [facility] Work Phone: Start: 10-12-2021 Urnls dip stick/tabl et rgnt auto w/o microscopy Bryanna Barth [facility] Work Phone: Start: 10-07-2021 nonstress test Va tyler Dang [facility] Work Phone: Start: 09-26-2021 GBS, EXTERNAL RESULT Mt andrea Purvis MD Start: 09-16-2021 End: 09-16-2021 Comprehensive metabolic panel Ai Gonzales Burnham [facility] Work Phone: Start: 09-16-2021 nonstress test Va tyler Dang [facility] Work Phone: Start: 03-22-2021 ABO, EXTERNAL RESULT Mt debical Yaniv SIMMONS Start: 03-22-2021 C. TRACHOMATIS, EXTE RNAL RESULT Historical Provider Start: 03-22-2021 HEPATITIS B, EXTERNA L RESULT Historical Provider Start: 03-22-2021 HIV, EXTERNAL RESULT Mt storical Provider Start: 03-22-2021 N. GONORRHOEAE, EXTE RNAL RESULT Historical Provider Start: 03-22-2021 RH FACTOR, EXTERNAL RESULT Historical Provider Start: 03-22-2021 RPR, EXTERNAL RESULT Mt storical Provider Start: 03-22-2021 RUBELLA TITER, EXTER NAL RESULT Historical Provider Start: 07-15-2018 H/O: section History of delivery Nohemy Kingsley RN Start: 03-13-2017 Microscopic observat ion [Identifier] in Cervix by Cyto stain Nohemy Kingsley RN H/O: section History of delivery Trinidad Ludwig RN Plan of Treatment Date Care Activity Detail Author Start: 07-30-2028 DTaP,Tdap and Td Vaccines (7 - Td or Tdap) DTaP,Tdap and Td Vaccines (7 - Td or Tdap) [facility] Start: 07-30-2028 DTaP/Tdap/Td vaccine (7 - Td or Tdap) DTaP/Tdap/Td vaccine (7 - Td or Tdap) [facility] Start: 07-31-2025 Adult BMI Screening Adult BMI Screening [facility] Start: 07-31-2025 Tobacco Screening Tobacco Screening [facility] Start: 03-23-2025 Adult BMI Screening Adult BMI Screening [facility] Start: 03-23-2025 Tobacco Screening Tobacco Screening [facility] Start: 02-16-2025 Tobacco Screening Tobacco Screening [facility] Start: 01-12-2025 Tobacco Screening Tobacco Screening [facility] Start: 10-05-2024 End: 10-05-2024 Patient encounter procedure 10/05/2024 9:30 AM EDT Procedure Visit [facility] [address] [place] [address] Betito Srivastava DO [address] [place] [address] [facility] Start: 08-27-2024 End: 08-27-2024 Telemedicine consultation with patient 08/27/2024 1:00 PM EST Telemedicine [facility] [address] [place] [id number] Blane Healy MD [address] [place] [address], [address] [place] [address] [facility] Start: 08-24-2024 End: 08-24-2025 DHEA DHEA Lab Routine Irregular menstrual cycle Menorrhagia with irregular cycle Expected: 08/24/2024 (Approximate), Expires: 08/24/2025 [facility] Comment on above: Expected: 08/24/2024 (Approximate), Expi res: 08/24/2025 Start: 08-24-2024 End: 08-24-2025 US Pelvis US Pelvis w/ TV Imaging Routine Irregular menstrual cycle Menorrhagia with irregular cycle Expected: 08/24/2024, Expires: 08/24/2025 [facility] Comment on above: Expected: 08/24/2024, Expires: Start: 08-24-2024 End: 08-24-2024 Patient encounter procedure 08/24/2024 9:00 AM EST Office Visit [facility] [address] [place] [id number] Betito Srivastava DO [address] [place] [address] Arrived [facility] Comment on above: Arrived Start: 07-31-2024 End: 07-31-2024 Patient encounter procedure 07/31/2024 11:15 AM EST Office Visit [facility] [address] [place] [address] Nelda Paniagua MD [address] [place] [address] Crystal Calhoun MD [address] [place] [address] [facility] Start: 07-20-2024 End: 07-20-2024 Patient encounter procedure 07/20/2024 11:30 AM EST Office Visit [facility] [address] [place] [address] Nelda Paniagua MD [address] [place] [address] [facility] Start: 07-16-2024 End: 07-16-2024 Patient encounter procedure 07/16/2024 2:30 PM EST Office Visit [facility] [address] [place] [phone] Dianne Dang CNM [address] [place] [address] Arrived [facility] Comment on above: Arrived Start: 06-17-2024 End: 06-17-2025 Wireless Telemetry (In Office) Wireless Telemetry (In Office) Cardiac Services Routine Palpitations Expected: 06/17/2024, Expires: 06/17/2025 [facility] Work Phone: Comment on above: Expected: 06/17/2024, Expires: Start: 04-27-2024 End: 04-27-2024 Patient encounter procedure 04/27/2024 10:30 AM EDT Appointment [facility] [address] [place] [phone] [facility] Start: 04-22-2024 End: 03-23-2025 Echo complete W/O contrast Echo complete W/O contrast Echocardiography Routine PFO (patent foramen ovale) S/P percutaneous patent foramen ovale closure Expected: 04/22/2024 (Approximate), Expires: 03/23/2025 [facility] Work Phone: Comment on above: Expected: 04/22/2024 (Approximate), Expi res: 03/23/2025 Start: 03-23-2024 End: 03-23-2024 Patient encounter procedure 03/23/2024 10:45 AM EDT Office Visit [facility] [address] [place] [phone] Mick Jett, [place] [address] [address] [facility] Start: 03-13-2024 End: 03-13-2024 Admission to same day surgery center 03/13/2024 7:30 AM EDT - 03/13/2024 9:30 AM EDT Surgery [facility] - Cardiac Cath [address] [place] [phone] Dante Degroot MD [address] [place] [address] Patent foramen ovale closure with cath/patch/ICE [82046 (CPT )] [facility] - Cardiac Cath Comment on above: Patent foramen ovale closure with cath/p atch/ICE [93825 (CPT )] Start: 03-13-2024 Subsequent hospital visit by physician 03/13/2024 7:30 AM EDT Hospital Encounter [facility] Cardiac Cath [address] [place] [address] Dante Degroot MD [address] [place] [address] PFO (patent foramen ovale) [facility] Cardiac Cath Comment on above: PFO (patent foramen ovale) Start: 03-12-2024 End: 03-12-2024 Admission to same day surgery center 03/12/2024 2:30 PM EDT - 03/12/2024 4:30 PM EDT Surgery [facility] Cardiac Cath [address] [place] [address] Dante Degroot MD [address] [place] [address] Patent foramen ovale closure with cath/patch/ICE [73456 (CPT )] [facility] Cardiac Cath Comment on above: Patent foramen ovale closure with cath/p atch/ICE [13385 (CPT )] Start: 03-12-2024 Subsequent hospital visit by physician 03/12/2024 2:30 PM EDT Hospital Encounter [facility] Cardiac Cath [address] [place] [address] Dante Degroot MD [address] [place] [address] PFO (patent foramen ovale) [facility] Cardiac Cath Comment on above: PFO (patent foramen ovale) Start: 03-08-2024 COVID-19 Vaccine () COVID-19 Vaccine () [facility] Start: 03-08-2024 COVID-19 Vaccine ( season) COVID-19 Vaccine ( season) [facility] Start: 03-08-2024 Influenza vaccination [facility] Start: 02-17-2024 End: 02-17-2024 Patient encounter procedure 02/17/2024 11:00 AM EDT Office Visit [facility] [address] [place] [address] [place] [phone] Dante Degroot MD [address] [place], [place] [phone] [facility] Start: 01-29-2024 End: 01-29-2024 Telemedicine consultation with patient 01/29/2024 3:00 PM EDT Telemedicine [facility] [address] [place] [phone] Blane Healy MD [address] [place] [address], [address] [place] [address] [facility] Start: 01-13-2024 End: 01-13-2024 Patient encounter procedure 01/13/2024 8:45 AM EDT Appointment [facility] - Cardiac Cath [address] [facility] [place] [phone] Raquel Nation MD [address] [place] [phone] [facility] - Cardiac Cath Start: 12-26-2023 End: 12-25-2024 Wireless Telemetry (In Office) Wireless Telemetry (In Office) Cardiac Services Routine PFO (patent foramen ovale) TIA (transient ischemic attack) Palpitations Expected: 12/26/2023, Expires: 12/25/2024 [facility] Work Phone: Comment on above: Expected: 12/26/2023, Expires: Start: 03-08-2023 COVID-19 Vaccine ( season) COVID-19 [facility]ine ( season) [facility] Start: 10-12-2022 Creatinine measurement Creatinine monitoring [facility] Start: 10-12-2022 Potassium monitoring Potassium monitoring [facility] Start: 09-28-2022 Adult BMI Screening Adult BMI Screening [facility] [employer] [facility] Start: 03-08-2022 Influenza vaccination Flu vaccine (Season Ended) [facility] Start: 01-11-2022 Hemoglobin A1c measurement A1C test (Diabetic or Prediabetic) [facility] Start: 10-21-2021 End: 10-21-2021 Patient encounter procedure 10/21/2021 Appointment IP Unit [facility] Start: 10-18-2021 Subsequent hospital visit by physician 10/18/2021 Hospital Encounter Obstetrics and Gynecology Dianne Dang, ESTHER - CNM [address] [place] [address] [facility] Labor and Delivery Start: 10-17-2021 End: [...] LD Start: 2021 Diabetes screen Diabetes screen [facility] Start: 03-08-2021 Influenza vaccination Flu vaccine (#1) [facility] Start: 03-13-2020 Screening for malignant neoplasm of cervix Pap Smear [facility] [employer] [facility] Start: 2016 Screening for malignant neoplasm of cervix [facility] Start: 2007 Screening for malignant neoplasm of cervix Pap smear [facility] Start: 2004 Adult BMI Follow Up Plan Adult BMI Follow Up Plan [facility] [employer] [facility] Start: 2001 HIV screening HIV screen [facility] Start: 1998 Depression Screen Depression Screen [facility] Start: 1998 Depression Screening Depression Screening [facility] Start: 1998 Tobacco Screening Tobacco Screening [facility] Start: 1991 COVID-19 Vaccine (1) COVID-19 Vaccine (1) [facility] Start: 1987 Varicella vaccine (1 of 2 - 2-dose childhood series) Varicella vaccine (1 of 2 - 2-dose childhood series) [facility] Start: 1986 Hepatitis C screening Hepatitis C screen [facility] Start: 1986 Tobacco Counseling Tobacco Counseling [facility] CBC W Auto Differential panel - Blood CBC and differential Lab Routine Irregular menstrual cycle Menorrhagia with irregular cycle Ordered: 08/24/2024 [facility] Comment on above: Ordered: 08/24/2024 DHEA-sulfate DHEA-sulfate Lab Routine Irregular menstrual cycle Menorrhagia with irregular cycle Ordered: 08/24/2024 [facility] Comment on above: Ordered: 08/24/2024 End: 08-27-2025 EEG EEG Neurology Routine LOC (loss of consciousness) ([facility]) 1 Occurrences starting 08/27/2024 until 08/27/2025 [employer] Phone: Comment on above: 1 Occurrences starting 08/27/2024 until 08/27/2025 End: 09-09-2021 nonstress test [employer] Phone: Comment on above: 1 Occurrences starting 09/09/2021 until 09/09/2021 As Needed for 8 Occu rrences starting 09/09/2021 End: 09-23-2021 nonstress test nonstress test OB Routine Diet controlled gestational diabetes mellitus (GDM) in third trimester 1 Occurrences starting 09/23/2021 until 09/23/2021 [employer] Phone: Comment on above: 1 Occurrences starting 09/23/2021 until 09/23/2021 Follicle stimulating hormone Follicle stimulating hormone Lab Routine Irregular menstrual cycle Menorrhagia with irregular cycle Ordered: 08/24/2024 [employer] Comment on above: Ordered: 08/24/2024 End: 10-13-2021 Glucose [Mass/volume] in Serum or Plasma Glucose, Random Lab Timed Tomorrow AM for 1 Occurrences starting 10/13/2021 until 10/13/2021 [employer] Phone: Comment on above: Tomorrow AM for 1 Occurrences starting 0 10/13/2021 until 10/13/2021 Glucose [Mass/volume ] in Serum or Plasma [employer] Phone: Comment on above: 4X Daily (AC & HS) until discontinued st arting 10/12/2021 As Needed until disc ontinued starting 10/12/2021 hCG, quantitative, hCG, quantitative, Lab Routine Irregular menstrual cycle Menorrhagia with irregular cycle Ordered: 08/24/2024 [employer] Work Phone: Comment on above: Ordered: 08/24/2024 Hemoglobin A1c/Hemoglobin.total in Blood Hemoglobin A1c Lab Routine Irregular menstrual cycle Menorrhagia with irregular cycle Ordered: 08/24/2024 [employer] Comment on above: Ordered: 08/24/2024 Holter monitor study [facility] Luteinizing hormone Luteinizing hormone Lab Routine Irregular menstrual cycle Menorrhagia with irregular cycle Ordered: 08/24/2024 [employer] Comment on above: Ordered: 08/24/2024 End: 10-19-2021 Magnesium [Mass/volume] in Serum or Plasma Magnesium Lab Routine Every 6 Hours (Lab) for 7 Days starting 10/12/2021 until 10/19/2021, 3 completed [employer] Phone: Comment on above: Every 6 Hours (Lab) for 7 Days starting 10/12/2021 until 10/19/2021, 3 completed Nonrebreather mask oxygen Nonrebreather mask oxygen Respiratory Care Routine As directed - RT (PRN) until discontinued starting 10/12/2021 [employer] Phone: Comment on above: As directed - RT (PRN) until discontinue d starting 10/12/2021 Oxygen therapy [Minimum Data Set] Initiate Oxygen Therapy Protocol Respiratory Care Routine As Needed until discontinued starting 10/12/2021 [employer] Phone: Comment on above: As Needed until discontinued starting Spirometry panel Incentive itz metry Respiratory Care Routine Every 2hr while awake until discontinued starting 10/12/2021 [employer] Phone: Comment on above: Every 2hr while awake until discontinued starting 10/12/2021 End: 10-12-2021 Surgical Pathology Surgical Pathology Lab Routine One Time for 1 Occurrences starting 10/12/2021 until 10/12/2021 [employer] Phone: Comment on above: One Time for 1 Occurrences starting 01/2022 until 10/12/2021 End: 10-12-2021 SURGICAL PATHOLOGY REPORT SURGICAL PATHOLOGY REPORT Lab Routine Once for 1 Occurrences starting 10/12/2021 until 10/12/2021 [employer] Phone: Comment on above: Once for 1 Occurrences starting 10/13/19 until 10/12/2021 End: 10-13-2021 SURGICAL PATHOLOGY REPORT SURGICAL PATHOLOGY REPORT Lab Routine Once for 1 Occurrences starting 10/13/2021 until 10/13/2021 [employer] Phone: Comment on above: Once for 1 Occurrences starting 10/14/19 until 10/13/2021 Thyrotropin [Units/volume] in Serum or Plasma TSH Lab Routine Irregular menstrual cycle Menorrhagia with irregular cycle Ordered: 08/24/2024 [facility] [employer] Comment on above: Ordered: 08/24/2024 Thyroxine (T4) free [Mass/volume] in Serum or Plasma T4, free Lab Routine Irregular menstrual cycle Menorrhagia with irregular cycle Ordered: 08/24/2024 [facility] Comment on above: Ordered: 08/24/2024 [facility] Immunizations Immunization Date Immunization Notes Care Provider Campos beasley 10-12-2021 diphtheria, tetanus toxoids and acellular pertussis vaccine, unspecified formulation Bryanna Barth APRN - CNM Work Phone: [employer] Phone: 10-12-2021 measles, mumps and rubella virus vaccine Bryanna Barth [employer] [facility] Work Phone: [facility] Work Phone: 07-30-2018 tetanus toxoid, redu sana diphtheria toxoid, and acellular pertussis vaccine, adsorbed Nohemy Kingsley RN [facility] 03-26-2013 influenza virus vaccine, unspecified formulation Nohemy Kingsley RN [facility] Payers Date Payer Category Payer [facility] BCBS [id number] 2023 [facility] Managed Care - Other ANTHEM [id number] [id number] 2023 Unknown [id number]. 1.13.424. [id number] 2023 Unknown [id number] 2020 Private Health Insurance [facility] [id number] 2020-Present [phone] [address] [place] [address] 1.2.840.386843.1.13.424. 2.7.3.702056.315 2014 Unknown [id number] 1986 Unknown [id number] 2.16.840.1.330279.3.579. 2.173 1986 Unknown [id number] 2.16.840.1.976285.3.579. 2.173 1986 Unknown [id number] 2.16.840.1.710473.3.579. 2.173 1986 Unknown [id number] 2.16.840.1.156660.3.579. 2.173 1986 Unknown [id number] 2.16.840.1.599729.3.579. 2.173 1986 Unknown [id number] 2.16.840.1.288932.3.579. 2.173 1986 Unknown [id number] 2.16.840.1.587317.3.579. 2.173 1986 Unknown [id number] 2.16.840.1.043284.3.579. 2.593 1986 Unknown [id number] 2.16.840.1.186412.3.579. 2.593 1986 Unknown [id number] 2.16.840.1.138214.3.579. 2.1286 1986 Unknown [id number] 2.16.840.1.342354.3.579. 2.1286 1986 Unknown [id number] 2.16.840.1.483318.3.579. 2.1286 1986 Unknown [id number] 2.16.840.1.341317.3.579. 2.1286 1986 Unknown [id number] 2.16.840.1.967449.3.579. 2.1286 1986 Unknown [id number] 2.16.840.1.180416.3.579. 2.1285 1986 Unknown [id number] 2.16.840.1.266846.3.579. 2.128 1986 Unknown [id number] 2.16.840.1.981590.3.579. 2.9 1986 Unknown [id number] 2.16.840.1.523160.3.579. 2.9 1986 Unknown [id number] 2.16.840.1.510303.3.579. 2.1259 1986 Unknown [id number] 2.16.840.1.828057.3.579. 2.1259 1986 Unknown [id number] 2.16.840.1.086673.3.579. 2.1285 1986 Unknown [id number] 2.16.840.1.104985.3.579. 2.1286 1986 Unknown [id number] 2.16.840.1.566229.3.579. 2.128 1986 Unknown [id number] 2.16.840.1.024694.3.579. 2.128 1986 Unknown [id number] 2.16.840.1.644667.3.579. 2.128 1986 Unknown [id number] 2.16.840.1.153223.3.579. 2.1285 1986 Unknown [id number] 2.16.840.1.863320.3.579. 2.1286 1986 Unknown [id number] 2.16.840.1.341981.3.579. 2.1286 1986 Unknown [id number] 2.16.840.1.878317.3.579. 2.1286 1959 Private Health Insurance [id number] 1.2.840.610397.1.13.239. 2.7.3.285909.315 Self-pay Self Pay [id number] Social History Date Type Detail Facility Start: 04-19-2021 End: 03-23-2024 Tobacco smoking status NHIS Never smoked tobacco [facility] [employer] Other Start: 04-19-2021 End: 12-16-2023 Tobacco use and exposure Smokeless tobacco non-user [employer] Phone: Start: 09-09-2021 End: 07-31-2024 Alcohol intake Ex-drinker (finding) [employer] Phone: Start: 01-31-2021 [employer] Work Phone: Start: 1985 Sex Assigned At Not on file [email or web address] Phone: Start: 09-13-2021 End: 10-12-2021 Exposure to SARS-CoV-2 (event) Not sure [employer] Start: 08-18-2020 End: 01-27-[address] [facility] [employer] Other Start: 1985 Sex Assigned At Female F [facility] Start: 01-27-2024 End: 08-24-2024 Alcoholic beverage intake Current drinker of alcohol (finding) [facility] Start: 08-18-2020 End: 01-27-2024 History of Social function [facility] Start: 07-29-2018 End: 03-23-2024 Tobacco use and exposure User of smokeless tobacco [facility] Childcare Unknown [facility] Start: 03-23-2024 Tobacco Comment Nicotine pouch , occasionally. [facility] Start: 02-10-2015 End: 08-18-2024 Sex Female (finding) [facility] History of tobacco use Chews Tobacco [facility] Start: 01-17-2022 End: 03-11-2024 Alcoholic beverage intake Current non-drinker of alcohol (finding) [facility] Start: 07-22-2018 End: 02-04-2024 Tobacco Comment Once a week [facility] Medical Equipment Procedure Code Equipment Code Equipment Origin al Text Equipment Identifier Dates Occluder Cv Rt A tr Disc 25mm Lt Atr Disc 18mm Rcmd Shth 8f Rpl [id number] - [id number] Start: 03-13-2024 Use pen needles to give insulin. [id number] Start: 09-28-2021 Clinical Notes 06-14-2021 to 08-27-2024 Blane Healy MD - 08/27/2024 1:00 PM Robert Senior LPN - 08/24/2024 9:00 AM Andreina Calhoun MD - 07/31/2024 11:15 AM ESTTelephone Encounter - Emilie Almazan CMA - 07/30/2024 10:01 AM EST Note Date & Type Note Facility 08-27-2024 History of Present illness Narrative Images from the original note were not included. [facility] Telestroke Clinic Visit [address] [facility] [address] Patient: Solange Lucas Date of : 1985 Encounter Date: 08/27/2024 Patient Care Team: Edward Mcqueen DO as PCP - General (Internal Medicine) ADELA Alejandre as Passenger Representative (Nurse Passenger Representative) Patient Location: home Patient Consent obtained: yes, Verbal Prior to beginning this clinical portion of this visit, the patient/family has consented to the use of this telemedicine E-visit and initiated the contact. They have also consented to using [employer] as a communications platform, understanding the privacy limitations, and telehealth and HIPAA waivers as established in the CMS expansion of telehealth benefits under the 1135 waiver authority and the Coronavirus Preparedness and Response Supplemental Appropriations Act Dated September and as summarized in September 22, 2019 [facility] FAQ on the Coronavirus (COVID-19) public health emergency. The patient has an established relationship with md and was last seen in January 2024. Reason for Visit: TIA and PFO History of Present Illness: Subjective: Solange Lucas is a right handed 39 y.o. female with past medical history significant for TIA, HTN, anemia and PFO who was hospitalized in December 2023 for TIA secondary to unclear reason. Patient had initially presented with right arm weakness and expressive aphasia. The symptoms resolved on its own and MRI brain was negative. Echocardiogram did demonstrate a PFO. Patient does have past medical history of possible hypertension and anemia due to heavy menses, otherwise no significant stroke risk factors. Patient had negative hypercoagulability workup and negative event monitor. Patient had PFO closure done in March of 2024 and repeat echo was done in April of 2024. Per patient, she is on aspirin lifelong and Plavix until September 2024. Patient states that she plans on having hysterectomy due to heavy menses. Patient stated approximately 2 weekends ago she was at a concert and felt very high and felt like she had a urinate and went to the bathroom. Of note prior to this patient had the flu with diarrhea and vomiting and fever and was significantly sleep deprived. Patient was found on the bathroom floor and also had some bowel incontinence but no significant confusion. Patient also had 2 drinks that day at the concert. Otherwise patient is doing well and at baseline ambulates and does all ADLs independently without difficulty. Past Medical, Family, Surgical, and Social History Update: The following portions of the patient's history were reviewed and updated as appropriate: allergies, current medications, past family history, past medical history, past social history, past surgical history and problem list. Review of Systems ROS as noted in HPI Past Medical History: Diagnosis Date Abnormal Pap smear of cervix Anxiety Atrial septal defect Gestational diabetes mellitus Hypertension Migraines Morbid obesity ([facility]) Panic attacks PFO (patent foramen ovale) Sprain of ankle, right TIA (transient ischemic attack) Tobacco abuse Family History Problem Relation Age of Onset Diabetes Mother Diabetes Father Depression Father Hypertension Father Asthma Sister Atrial fibrillation Brother Diabetes Maternal Grandmother Heart disease Maternal Grandfather Heart disease Paternal Grandmother Past Surgical History: Procedure Laterality Date BACK SURGERY 2008 disc shaved (bulging) and fused 2 of them together Was in college REPEAT WITH IUD INSERTION N/A 07/29/2018 Performed by Benita Sarabia MD at [facility] OR SECTION W/ TUBAL LIGATION 10/12/2021 COLPOSCOPY Intracardiac echocardiogram N/A 03/13/2024 Performed by Dante Degroot MD at [facility] CARDIAC CATH LABS PATENT FORAMEN OVALE CLOSURE 03/13/2024 Patent foramen ovale closure with cath/patch/ICE N/A 03/13/2024 Performed by Dante Degroot MD at [facility] CARDIAC CATH LABS TONSILLECTOMY Current Outpatient Medications Medication Sig Dispense Refill aspirin 81 mg chewable tablet Chew 1 tablet (81 mg total) and swallow in the morning. buPROPion (WELLBUTRIN) 75 mg tablet Take 1 tablet (75 mg total) by mouth in the morning and 1 tablet (75 mg total) before bedtime. (Patient not taking: Reported on 07/31/2024) clopidogreL (PLAVIX) 75 mg tablet Take 1 tablet (75 mg total) by mouth in the morning. 30 tablet 6 No current facility-administered medications for this visit. (All medications reviewed and updated by provider since last office visit or hospitalization) Tobacco History: Social History Tobacco Use Smoking Status Never Smokeless Tobacco Current Tobacco Comments Nicotine pouch, occasionally. (If patient a smoker, smoking cessation counseling offered) Social History: Social History Substance and Sexual Activity Alcohol Use Not Currently Allergies: Allergies Allergen Reactions Penicillin G Hives Penicillins Hives Objective: There were no vitals taken for this visit. Please note that this exam was done through telemedicine, thus specific portions may be limited. Last Neuro Imaging: MRI brain 12/2023 Physical Exam: Physical Exam: Mental Status: Orientation: Oriented. Level of consciousness: alert. Speech: Normal quality. Language: Normal. Cranial Nerves: CN III, IV, : CN III: EOM full. CN VII: Facial expression fully symmetric. Motor: Power: Pronator drift: None. Sensory: Light touch normal in upper and lower extremities. Gait/Coord/DTR: Casual gait with normal base and stride and without ataxia or circumduction. Coordination: Normal. NIH Stroke Scale 1a Level of consciousness: 0=alert; keenly responsive 1b. LOC questions: 0=Performs both tasks correctly 1c. LOC commands: 0=Performs both tasks correctly 2. Best Gaze: 0=normal 3. Visual: 0=No visual loss 4. Facial Palsy: 0=Normal symmetric movement 5a. Motor left arm: 0=No drift, limb holds 90 (or 45) degrees for full 10 seconds 5b. Motor right arm: 0=No drift, limb holds 90 (or 45) degrees for full 10 seconds 6a. motor left le=No drift, limb holds 90 (or 45) degrees for full 10 seconds 6b Motor right le=No drift, limb holds 90 (or 45) degrees for full 10 seconds 7. Limb Ataxia: 0=Absent 8. Sensory: 0=Normal; no sensory loss 9. Best Language: 0=No aphasia, normal 10. Dysarthria: 0=Normal 11. Extinction and Inattention: 0=No abnormality Total: 0 NIHSS0 Modified [place] Score: 0 Risk Factor Management: PFO s/p closure 03/2024 Assessment/Plan: Patient Active Problem List Diagnosis Acne Abnormal facial hair Gestational diabetes mellitus History of delivery Encounter for sterilization BMI 50.0-59.9, adult ([facility]) Gestational hypertension, third trimester Intrauterine PFO (patent foramen ovale) TIA (transient ischemic attack) Patient is a 39-year-old female who had a TIA localizing to the left MCA distribution in December of 2023 status post PFO closure in March of 2024 currently on aspirin and Plavix. Patient had a syncopal event a proximally 2 weeks ago at a concert, of note patient had significant flu-like symptoms including diarrhea vomiting and fever prior to this. Patient also has sleep deprivation. Patient had some bowel incontinence with this event but no confusion afterwards. Exam today is nonfocal. Will clear patient for her hysterectomy for her heavy menses. Per structural heart clinic patient is to continue aspirin lifelong and Plavix until September of 2024. At this time will order a routine EEG outpatient to rule out any seizure focus. Will call patient in 6 months, if doing well no follow up needed. In addition I did review the signs/ symptoms of stroke including BE FAST (B) balance issues, (E) acute eye/ vision changes, (F) facial droop, (A) Arm/ leg weakness, (S) speech disturbance and (T) time to call 911 if these symptoms occur. This note was completed using a voice etl analyst developer system. Every effort was made to ensure accuracy; however, inadvertent computerized etl analyst developer errors may be present Please note case was done in collaboration with: patient I have spent 25 minutes personally reviewing previous history, imaging, and performing a face to face real time video health assessment on this patient via camera. If you have any further questions please feel free to contact our office at [facility]. This is a telemedicine visit. Verbal and/or written consent to participate in video visit was obtained. This visit occurred during in a Coronavirus (COVID-19) Public Health Emergency. I discussed with the patient the nature of his/her telemedicine visits that: - I would evaluate the patient and recommend diagnostics and treatments based on my assessment. - our sessions are not being recorded and that personal health information is being protected to the best of my ability. - our team would provide follow-up care in person if/ when the patient needs it documented in this encounter [facility] 08-24-2024 History of Present illness Narrative Reason for Appointment: Patient ID: Solange Lucas is a 39 y.o. female who presents for Ablation Consult Patient presents today for Consult appointment. MEDICATIONS Current Outpatient Medications Medication Instructions aspirin 81 mg, Daily RT clopidogrel (PLAVIX) 75 mg, Daily ferrous sulfate 65 mg, Daily with breakfast ALLERGIES Allergies Allergen Reactions Penicillin G Hives Penicillins Hives PROBLEMS Active Ambulatory Problems Diagnosis Date Noted Irregular menstrual cycle 08/24/2024 Menorrhagia with irregular cycle 08/24/2024 Resolved Ambulatory Problems Diagnosis Date Noted No Resolved Ambulatory Problems No Additional Past Medical History HISTORY PAST MEDICAL HISTORY SOCIAL HISTORY History reviewed. No pertinent past medical history. Social History Tobacco Use Smoking status: Never Smokeless tobacco: Never Substance Use Topics Alcohol use: Yes Drug use: Never FAMILY HISTORY Family History Problem Relation Name Age of Onset Diabetes type II Mother Diabetes type II Father SURGICAL HISTORY Past Surgical History: Procedure Laterality Date BACK SURGERY SECTION, LOW TRANSVERSE x3 GASTRIC BYPASS 2022 TUBAL LIGATION REVIEW OF SYSTEMS Review of Systems: Review of Systems Genitourinary: Positive for menstrual problem and vaginal bleeding. All other systems reviewed and are negative. OBJECTIVE Objective: Physical Exam Constitutional: Appearance: Normal appearance. She is well-developed. Cardiovascular: Rate and Rhythm: Normal rate and regular rhythm. Pulmonary: Effort: Pulmonary effort is normal. Breath sounds: Normal breath sounds. Abdominal: General: Bowel sounds are normal. There is no distension. Palpations: Abdomen is soft. Tenderness: There is no abdominal tenderness. There is no guarding or rebound. Musculoskeletal: General: No swelling. Normal range of motion. Right lower leg: No edema. Left lower leg: No edema. Neurological: Mental Status: She is alert and oriented to person, place, and time. Skin: General: Skin is warm and dry. Psychiatric: Mood and Affect: Mood normal. Behavior: Behavior normal. Vitals and nursing note reviewed. Exam conducted with a warehouse insulation worker present. Vitals: Estimated body mass index is 29.29 kg/m as calculated from the following: Height as of this encounter: 5' 2 . Weight as of this encounter: 160 lb 1.9 oz. BP: 110/70 No LMP recorded (within weeks). ASSESSMENT & PLAN ICD-10-CM 1. Irregular menstrual cycle N92.6 2. Menorrhagia with irregular cycle N92.1 Patient was referred from [facility] for surgical management of irregular/heavy cycles. Discussed conservative management verses surgical management. Patient desires to have surgical management via [facility]. Due to patients extensive surgical history of multiple c-sections patient is not a candidate for endometrial ablation. Patient will setup surgery date and pre-op/endometrial bx appointment prior to leaving office today. With patients medical history patient will need to have a few clearances prior to surgical procedure. Documented by Ai Senior LPN on behalf of: Betito Srivastava DO documented in this encounter [facility] 07-31-2024 History of Present illness Narrative Solange Lucas Date of visit: 07/31/2024 Date of : 1985 Age: 39 y.o. Patient Active Problem List Diagnosis Acne Abnormal facial hair Gestational diabetes mellitus History of delivery Encounter for sterilization BMI 50.0-59.9, adult ([facility] Gestational hypertension, third trimester Intrauterine PFO (patent [...] 07/29/2018 Performed by Benita Sarabia MD at [facility] OR SECTION W/ TUBAL LIGATION 10/12/2021 COLPOSCOPY Intracardiac echocardiogram N/A 03/13/2024 Performed by Dante Degroot MD at [facility] CARDIAC CATH LABS PATENT FORAMEN OVALE CLOSURE 03/13/2024 Patent foramen ovale closure with cath/patch/ICE N/A 03/13/2024 Performed by Dante Degroot MD at [facility] CARDIAC CATH LABS TONSILLECTOMY Family History [...] Interpersonal Safety: Unknown (12/18/2023) Received from [facility] Safety & Environment Fear of Current or [...] MCQUEEN DO Referring Physician: Edward Mcqueen DO [facility] [place] [address] documented in this encounter [employer] 07-30-2024 Miscellaneous Notes Called patient to remind them to bring their most current copy of their medication list with them to their appt. Patient verbalizes understanding. documented in this encounter [facility] 07-30-2024 Telephone encounter Note Called patient to remind them to bring their most current copy of their medication list with them to their appt. Patient verbalizes understanding. [facility] 07-27-2024 Miscellaneous Notes Called patient to offer earlier availability on 08/04. Pt was not available; LVM to call back. Appointment no longer available. documented in this encounter [facility] 07-27-2024 Telephone encounter Note Called patient to offer earlier availability on 08/04. Pt was not available; LVM to call back. [facility] 07-27-2024 Telephone encounter Note Appointment no longer available. [facility] 07-16-2024 History of Present illness Narrative Images from the original note were not included. PROBLEM VISIT Solange Lucas is 39 y.o. a patient of [facility] [employer] PHYSICS Here for growth by her rectum Last pap: 12/16/23 Last mammogram: Patient's last menstrual period was 07/07/2024 (exact date). History: History reviewed. No pertinent past medical history. Past Surgical History: Procedure Laterality Date SECTION, LOW TRANSVERSE x3 GASTRIC BYPASS 2022 Family History Problem Relation Name Age of Onset Diabetes type II Mother Diabetes type II Father @SOCHX@ Allergies: Allergies Allergen Reactions Penicillin G Hives [...] MA,07/16/2024 2:41 PM documented in this encounter [facility] 06-17-2024 Miscellaneous Notes Pt called in to [facility] stating last night around 9:30pm she could feel her heart racing and she did not feel right. She didn't think too much off it and went to bed. She said her fit bit stated signs of AFIB were detected and hear heart rate ranged from 44-180. Today she feels okay just tired. Sending message to PKR for recommendations. Let's get mcot 2 weeks Have her seen in [facility] Called and spoke to pt with PKR recommendations. Pt v/u. Mcot ordered and scheduled next avail appt at [place]. documented in this encounter [facility] 06-17-2024 Telephone encounter Note Pt called in to [facility] stating last night around 9:30pm she could feel her heart racing and she did not feel right. She didn't think too much off it and went to bed. She said her fit bit stated signs of AFIB were detected and hear heart rate ranged from 44-180. Today she feels okay just tired. Sending message to PKR for recommendations. [facility] 06-17-2024 Telephone encounter Note Let's get mcot 2 weeks Have her seen in [facility] 06-17-2024 Telephone encounter Note Called and spoke to pt with PKR recommendations. Pt v/u. Simonot ordered and scheduled next avail appt at [place]. [facility] 05-26-2024 Miscellaneous Notes Per June 2024 recall, patient is due for follow up with Dr. Healy. Please call and schedule patient. Spoke with patient and scheduled appt documented in this encounter [facility] 05-26-2024 Telephone encounter Note Per June 2024 recall, patient is due for follow up with Dr. Healy. Please call and schedule patient. [facility] [employer] [facility] 05-26-2024 Telephone encounter Note Spoke with patient and scheduled appt [facility] [employer] [facility] 03-23-2024 History of Present illness Narrative Images from the original note were not included. [facility] Solange Cheryl Lucas Date of visit: 03/23/2024 Date of : 1985 Age: 38 y.o. Chief Complaint Patient presents with Follow-up OV F/U W KKY PFO 03/12/24-APPT SCHED W PT-PT REQUEST APPT ON 03/23 last week had an episode of extreme dizziness, unsteadiness/balance control with some focal disturbance. Pt stated it felt like being the drunkest you've ever been . Lasted approx 20 minutes. No issues since. History of Present Illness 38-year-old female who returns to the clinic today for follow-up after recent percutaneous PFO closure. This was completed successfully on March 13, 2024. There were no apparent complications. She was able to be discharged home later the same day. She was started on Plavix and advised to remain on DAPT for 6 months post PFO closure. Today she notes she is feeling fine from cardiac standpoint. She denies any CP, SOB, palpitations, LH or dizziness. No groin complaints or concerns. She did have an episode last week were she felt very unsteady and off balance, like she was drunk. Lasted about 20 minutes. Did not notify her neurologist. States she does have very heavy menses and that her current menstrual flow seems to be much heavier even before with the recent initiation of Plavix. She has not been taking aspirin. Current Outpatient Medications Medication Sig Dispense Refill aspirin 81 mg chewable tablet Chew 1 tablet (81 mg total) and swallow in the morning. buPROPion (WELLBUTRIN) 75 mg tablet Take 1 tablet (75 mg total) by mouth in the morning and 1 tablet (75 mg total) before bedtime. clopidogreL (PLAVIX) 75 mg tablet Take 1 tablet (75 mg total) by mouth in the morning. 30 tablet 6 No current facility-administered medications for this visit. Allergies Allergen Reactions Penicillin G Hives Penicillins Hives Patient Active Problem List Diagnosis Acne Abnormal facial hair Gestational diabetes mellitus History of delivery Encounter for sterilization BMI 50.0-59.9, [place] Gestational hypertension, third trimester Intrauterine PFO (patent foramen ovale) TIA (transient ischemic attack) Past Medical History: Diagnosis Date Abnormal Pap smear of cervix Anxiety Atrial septal defect Gestational diabetes mellitus Hypertension Migraines Morbid [place] Panic attacks PFO (patent foramen ovale) Sprain of ankle, right TIA (transient ischemic attack) Tobacco abuse Past Surgical History: Procedure Laterality Date BACK SURGERY 2008 disc shaved (bulging) and fused 2 of them together Was in college REPEAT WITH IUD INSERTION N/A 07/29/2018 Performed by Benita Sarabia MD at [facility] OR SECTION W/ TUBAL LIGATION 10/12/2021 COLPOSCOPY Intracardiac echocardiogram N/A 03/13/2024 Performed by Dante Degroot MD at [facility] CARDIAC CATH LABS Patent foramen ovale closure with cath/patch/ICE N/A 03/13/2024 Performed by Dante Degroot MD at [facility] CARDIAC CATH LABS TONSILLECTOMY Family History [...] Social History Narrative Not on file Social Determinants of Health Financial Resource Strain: Not on file Food Insecurity: Not on file Transportation Needs: Not on file Physical Activity: Not on file Stress: Not on file Social Connections: Not on file Interpersonal Safety: Unknown (12/18/2023) Received from [facility] Safety & Environment Fear of Current or Ex-Partner: Not on file Emotionally Abused: Not on file Physically Abused: Not on file Sexually Abused: Not on file Physically or Sexually Abused: Not on file Housing Instability: Not on file Current Outpatient Medications Medication Sig Dispense Refill aspirin 81 mg chewable tablet Chew 1 tablet (81 mg total) and swallow in the morning. buPROPion (WELLBUTRIN) 75 mg tablet Take 1 tablet (75 mg total) by mouth in the morning and 1 tablet (75 mg total) before bedtime. clopidogreL (PLAVIX) 75 mg tablet Take 1 tablet (75 mg total) by mouth in the morning. 30 tablet 6 No current facility-administered medications for this visit. Review of Systems Review of Systems Constitutional: Positive for malaise/fatigue. HENT: Negative for nosebleeds. Eyes: Negative for blurred vision and double vision. Respiratory: Negative for cough, shortness of breath and wheezing. Hematologic/Lymphatic: Does not bruise/bleed easily. Skin: Negative for rash. Musculoskeletal: Negative for joint pain, joint swelling, muscle cramps and muscle weakness. Gastrointestinal: Negative for abdominal pain and heartburn. Genitourinary: Negative for hematuria. Neurological: Positive for dizziness and loss of balance. Negative for headaches, light-headedness and weakness. Psychiatric/Behavioral: Negative for depression. The patient is not nervous/anxious. CARDIOVASCULAR: Please review HPI. Physical Examination BP 112/72 Pulse 75 Ht 157.5 cm (5' 2.01 ) Wt 74.3 kg (163 lb 12.8 oz) SpO2 100% BMI 29.95 kg/m CONSTITUTIONAL: cooperative, alert and oriented, well developed, well nourished, in no acute distress SKIN: warm and dry to touch HEAD:normocephalic, no tenderness EYES:conjuctivae and lids unremarkable, funduscopic exam and visual de los santos not performed, EOMS intact NECK: no JVD CHEST: clear to auscultation and percussion, normal A-P diameter, no use of accessory muscles CARDIAC: regular rhythm, S1, S2, no murmurs PERIPHERAL PULSES: pulses full and equal in all extremities, no bruits auscultated EXTREMITIES and BACK: no cyanosis present, no clubbing present, no edema present, right and left groin sites soft and non-tender with resolving ecchymosis and no hematoma or bruit PSYCHIATRIC: appropriate mood, memory and judgement NEUROLOGICAL: no gross motor or sensory deficits noted Cardiac Testing LAST ECHO (Within 2 Years) Echo EMMA Result Date: 01/13/2024 Left Ventricle: Systolic function is normal with an ejection fraction of 60-65%. Left Atrium: Left atrium is normal in size. There is no thrombus in the left atrial appendage. Agitated saline bubble study reveals evidence of right to left interatrial shunting . No significant valvular disease noted. LAST STRESS (Within 2 Years) No results found. EKG: No results found. CATH: No results found. (Within 2 Years) LAST LABS: CBC: Lab Results Component Value Date WBC 11.3 (H) 07/30/2018 HGB 11.5 (L) 07/30/2018 HCT 35.0 07/30/2018 MCV 82 07/30/2018 PLT 194 07/30/2018 BMP: Lab Results Component Value Date GLU 95 06/08/2021 CALCIUM 9.0 06/08/2021 SODIUM 138 06/08/2021 K 4.4 06/08/2021 CO2 24 06/08/2021 BUN 7 06/08/2021 CREATININE 0.45 06/08/2021 PT/INR: @INR3@ Lipids: No results found for: CHOL No results found for: HDL No results found for: LDLCALC No results found for: TRIG No results found for: CHOLHDL Changes Made No orders of the defined types were placed in this encounter. There are no discontinued medications. IMPRESSIONS/PLAN Encounter Diagnoses Name Primary? PFO (patent foramen ovale) Yes S/P percutaneous patent foramen ovale closure S/p percutaneous PFO closure -Overall recovering well, groin sites unremarkable. Ok to slowly resume normal activities as tolerated. Advised to refrain from any strenuous aerobic activity (>7 METS) for 30 days post closure. Reminded of need for prophylactic antibiotics prior to any dental procedures for next 6 months. Will check an echo w/ bubble study in about a month. Continue aspirin and Plavix for 6, then ok to stop Plavix and continue on aspirin alone. TIA -2 recent TIAs. Unclear if most recent episode of transient unsteadiness/mental fogginess may have represented another TIA. This occurred after her PFO closure. Will FYI patient's Neurologist of recent event. Menorrhagia, anemia -Encouraged follow-up w/ PCP and FARMWORK[employer]IRY given current need for DAPT with known severe anemia and menorrhagia. If necessary, could likely stop Plavix after 1 month but prefer to remain on DAPT for 6 months if possible. No further follow-up in the structural heart clinic is anticipated at this time. Patient is encouraged to continue to follow regularly in the general cardiology clinic. I have otherwise asked that she call if we can be of any further assistance. TODAYS ORDERS Orders Placed This Encounter Procedures Echo complete W/O contrast FOLLOW UP No follow-ups on file. PCP: EDWARD MCQUEEN DO Referring Physician: Edward Mcqueen DO [facility] [place] [address] CRISTINA Saba 03/23/24 1122 [facility] 03-11-2024 History of Present illness Narrative Called patient to advise her she will need a test prior to her PFO closure procedure, she states she had a tubal. Spoke with laborer hoisting staff, no need for test given patient's history. Will update her chart to reflect her surgical history. Per CareEverywhere csection with tubal performed on 10/12/21. Order for test cancelled. [facility] [employer] 03-05-2024 Miscellaneous Notes Called pt to r/s time of PFO closure on 03-12 to 2:30 and pt to arrive at 1:00p. Pt v/u. Went over reminder info listed below with pt. Reminder call for patient's upcoming PFO Closure procedure. Scheduled on: 03-12-24 at 2:30 Arrival time: 1:00p NPO after midnight the night before. 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 documented in this encounter [facility] 03-05-2024 Telephone encounter Note Called pt to r/s time of PFO closure on 03-12 to 2:30 and pt to arrive at 1:00p. Pt v/u. Went over reminder info listed below with pt. Reminder call for patient's upcoming PFO Closure procedure. Scheduled on: 03-12-24 at 2:30 Arrival time: 1:00p NPO after midnight the night before. 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 [facility] 02-17-2024 History of Present illness Narrative Images from the original note were not included. [facility] Structural heart clinic TELEHEALTH VIRTUAL ENCOUNTER Verbal consent was obtained for this TeleHealth encounter. This was both an audio and visual visit. Location of patient: 11 minutes of time were spent CHIEF COMPLAINT / REASON FOR ENCOUNTER PFO with cryptogenic stroke HISTORY OF PRESENT ILLNESS Solange Lucas is a very pleasant 38-year-old woman who unfortunately suffered a cryptogenic stroke in December of 2023. She had an echo that showed a markedly positive bubble study. Her EMMA confirmed that she had a PFO The patient has had no arrhythmias and her hypercoagulable workup has been negative When she had the TIA she had right arm weakness and expressive aphasia and the symptoms resolved on their own. Looking through neurology notes they feel she has had 2 different TIA episodes Neurology recommended closure of the PFO I discussed with the patient risks benefits alternatives and she is agreeable to proceeding She has no residual neurological deficits The patient's rope score is 7 SUBJECTIVE PAST MEDICAL HISTORY Past Medical History: Diagnosis Date Abnormal Pap smear of cervix Anxiety Atrial septal defect Gestational diabetes mellitus Hypertension Migraines Morbid obesity ([facility] Panic attacks PFO (patent foramen ovale) Sprain of ankle, right TIA (transient ischemic attack) Tobacco abuse SURGICAL HISTORY has a past surgical history that includes Colposcopy; Tonsillectomy; section; Back surgery (2008); and section, low transverse (N/A, 07/29/2018). SOCIAL HISTORY Social History Socioeconomic History Marital status: Spouse name: Not on file Number of children: Not on file Years of education: Not on file Highest education level: Not on file Occupational History Not on file Tobacco Use Smoking status: Never Smokeless tobacco: Not on file Tobacco comments: Once a week Substance and Sexual Activity Alcohol use: No Drug use: No Sexual activity: Yes Partners: Male control/protection: None Other Topics Concern Not on file Social History Narrative Not on file Social Determinants of Health Financial Resource Strain: Not on file Food Insecurity: Not on file Transportation Needs: Not on file Physical Activity: Not on file Stress: Not on file Social Connections: Not on file Interpersonal Safety: Unknown (12/18/2023) Received from [facility] Safety & Environment Fear of Current or Ex-Partner: Not on file Emotionally Abused: Not on file Physically Abused: Not on file Sexually Abused: Not on file Physically or Sexually Abused: Not on file Housing Instability: Not on file FAMILY HISTORY family history includes Asthma in her sister; Atrial fibrillation in her brother; Depression in her father; Diabetes in her father, maternal grandmother, and mother; Heart disease in her maternal grandfather and paternal grandmother; Hypertension in her father. MEDICATIONS Prior to Admission medications Medication Sig Start Date End Date Taking? Authorizing Provider aspirin 81 mg chewable tablet Chew 1 tablet (81 mg total) and swallow in the morning. Not In System Ref Prov atorvastatin (LIPITOR) 20 mg tablet Take 1 tablet (20 mg total) by mouth in the morning. Not In System Ref Prov blood-glucose meter (FREESTYLE FREEDOM) kit Use as instructed 06/08/21 Ben Levine MD buPROPion (WELLBUTRIN) 75 mg tablet Take 1 tablet (75 mg total) by mouth in the morning and 1 tablet (75 mg total) before bedtime. Not In System Ref Prov pen needle, diabetic (BD ULTRA-FINE SHORT PEN NEEDLE) 31 gauge x 5/16 needle Use pen needles to give insulin. 09/28/21 Dariel Carlson MD ALLERGIES Penicillin g and Penicillins REVIEW OF SYSTEMS ROS OBJECTIVE PHYSICAL VISUAL EXAM Constitutional: Awake, alert, normal development, well-nourished Head: Normocephalic, without obvious abnormality, atraumatic Eyes: Conjunctivae and lids appear unremarkable Neck: No thyroid enlargement on inspection or evidence of JVD Respiratory: Normal respiratory effort, no accessory muscle use Skin: Skin color, turgor normal, no rashes or lesions Neurologic: Grossly normal, no focal deficits Psych: Oriented x3, appropriate affect and mood ASSESSMENT/PLAN We discussed risks benefits alternatives of PFO closure in the setting of cryptogenic stroke. Her event monitor has been negative for any arrhythmia. Her hypercoagulable workup has been negative. Neurology recommends proceeding with the closure. Her anatomy looks amenable to closure. We will set her up for closure in the near term future. She will be on dual antiplatelet then referred proximally six-month post closure Thank you for the referral Dr. Tamika Martinez documented in this encounter [facility] 01-29-2024 History of Present illness Narrative Images from the original note were not included. [facility] Telestroke Clinic Visit [address] [facility] [id number] Patient: Solange Lucas Date of : 1985 Encounter Date: 01/29/2024 Patient Care Team: Edward Mcqueen DO as PCP - General (Internal Medicine) ADELA Alejandre as Passenger Representative (Midwifery) Patient Location: home Patient Consent obtained: yes, Verbal Prior to beginning this clinical portion of this visit, the patient/family has consented to the use of this telemedicine E-visit and initiated the contact. They have also consented to using [employer] as a communications platform, understanding the privacy limitations, and telehealth and HIPAA waivers as established in the CMS expansion of telehealth benefits under the [id number] waiver authority and the Coronavirus Preparedness and Response Supplemental Appropriations Act Dated September and as summarized in September 22, 2019 [facility] FAQ on the Coronavirus (COVID-19) public health emergency. The patient was last seen by telestroke at [facility] in December 2023 . Reason for Visit: recent TIA x2 History of Present Illness: Subjective: Solange Lucas is a right handed 38 y.o. female with past medical history significant for HTN and PFO who was hospitalized in December 2023 for TIA. Patient had initially presented with right arm weakness and expressive aphasia to [place] [facility]. Patient was subsequently admitted and symptoms did resolve on their own. Patient's MRI brain also showed no acute infarct or hemorrhage. Of note that day patient states that she drinks 6 cups of coffee and did feel like her heart was having palpitations and her fit bit alerted that she was in AFib. During hospital admission patient had a TTE which did show a PFO. Patient also had hypercoagulability workup done which was negative. A1c was 6. Previously patient did have history of hypertension and patient states that she does not smoke tobacco but did consume tobacco and pouches on occasion. Of note patient's brother has atrial fibrillation. Patient is currently on aspirin and statin daily. Patient is currently wearing the event monitor and today is the last day. Of note patient has had approximately 1 week after hospital discharge she had an event in which her left hand stopped working and her left face felt abnormal and it lasted approximately 15-20 minutes and resolved on its own. Currently patient ambulates and does all ADLs independently without difficulty. Patient does have 3 children and functions at baseline independently. Past Medical, Family, Surgical, and Social History Update: The following portions of the patient's history were reviewed and updated as appropriate: allergies, current medications, past family history, past medical history, past social history, past surgical history and problem list. Review of Systems ROS as noted in HPI. Past Medical History: Diagnosis Date Abnormal Pap smear of cervix Anxiety Gestational diabetes mellitus Hypertension Migraines Morbid obesity ([facility]) Panic attacks Sprain of ankle, right Tobacco abuse Family History Problem Relation Age of Onset Diabetes Father Depression Father Hypertension Father Diabetes Mother Asthma Sister Heart disease Paternal Grandmother Diabetes Maternal Grandmother Heart disease Maternal Grandfather Past Surgical History: Procedure Laterality Date BACK SURGERY 2008 disc shaved (bulging) and fused 2 of them together Was in college REPEAT WITH IUD INSERTION N/A 07/29/2018 Performed by Benita Sarabia MD at [facility] OR SECTION COLPOSCOPY TONSILLECTOMY Current Outpatient Medications Medication Sig Dispense Refill aspirin 81 mg chewable tablet Chew 1 tablet (81 mg total) and swallow in the morning. atorvastatin (LIPITOR) 20 mg tablet Take 1 tablet (20 mg total) by mouth in the morning. blood-glucose meter (FREESTYLE FREEDOM) kit Use as instructed 1 each 0 buPROPion (WELLBUTRIN) 75 mg tablet Take 1 tablet (75 mg total) by mouth in the morning and 1 tablet (75 mg total) before bedtime. pen needle, diabetic (BD ULTRA-FINE SHORT PEN NEEDLE) 31 gauge x 5/16 needle Use pen needles to give insulin. 100 each 0 No current facility-administered medications for this visit. (All medications reviewed and updated by provider since last office visit or hospitalization) Tobacco History: Social History Tobacco Use Smoking Status Never Smokeless Tobacco Current Types: Chew Tobacco Comments Once a week (If patient a smoker, smoking cessation counseling offered) Social History: Social History Substance and Sexual Activity Alcohol Use No Allergies: Allergies Allergen Reactions Penicillin G Hives Objective: There were no vitals taken for this visit. Please note that this exam was done through telemedicine, thus specific portions may be limited. Last Neuro Imaging: MRI brain 12/2023 Physical Exam: Neurology Physical Exam NIH Stroke Scale 1a Level of consciousness: 0=alert; keenly responsive 1b. LOC questions: 0=Performs both tasks correctly 1c. LOC commands: 0=Performs both tasks correctly 2. Best Gaze: 0=normal 3. Visual: 0=No visual loss 4. Facial Palsy: 0=Normal symmetric movement 5a. Motor left arm: 0=No drift, limb holds 90 (or 45) degrees for full 10 seconds 5b. Motor right arm: 0=No drift, limb holds 90 (or 45) degrees for full 10 seconds 6a. motor left le=No drift, limb holds 90 (or 45) degrees for full 10 seconds 6b Motor right le=No drift, limb holds 90 (or 45) degrees for full 10 seconds 7. Limb Ataxia: 0=Absent 8. Sensory: 0=Normal; no sensory loss 9. Best Language: 0=No aphasia, normal 10. Dysarthria: 0=Normal 11. Extinction and Inattention: 0=No abnormality Total: 0 NIHSS 0 Modified [place] Score: 0 Risk Factor Management: Hypertension target range 130-140/70-80 Lipid range - LDL < 70 and checked every 6 months, fasting Diabetes - HgB A1C <7 Assessment/Plan: Patient Active Problem List Diagnosis Acne Abnormal facial hair Gestational diabetes mellitus History of delivery Encounter for sterilization BMI 50.0-59.9, adult ([facility]) Gestational hypertension, third trimester Intrauterine Patient is a 38-year-old female who sustained a TIA that localized to the left MCA distribution at [facility] in December 26, 2023 with a negative MRI brain and PFO noted on TTE and EMMA. Exam is nonfocal today on video. Will ask patient to continue aspirin and statin for now. If monitor is negative it is reasonable to pursue PFO closure. Patient also had negative hypercoagulability workup. If event monitor is positive for AFib/a flutter, will start patient on anticoagulation. Patient should follow up with Cardiology as scheduled. Continue ASA and statin. Complete event monitor If monitor is negative, reasonable to pursue PFO closure If event monitor is positive for AFib/flutter, will start patient on AC Followup in approx. 5-6 months. Continue to followup with cardiology. In addition I did review the signs/ symptoms of stroke including BE FAST (B) balance issues, (E) acute eye/ vision changes, (F) facial droop, (A) Arm/ leg weakness, (S) speech disturbance and (T) time to call 911 if these symptoms occur. This note was completed using a voice etl analyst developer system. Every effort was made to ensure accuracy; however, inadvertent computerized etl analyst developer errors may be present Please note case was done in collaboration with: patient I have spent 30 minutes personally reviewing previous history, imaging, and performing a face to face real time video health assessment on this patient via camera. If you have any further questions please feel free to contact our office at [facility]. This is a telemedicine visit. Verbal and/or written consent to participate in video visit was obtained. This visit occurred during in a Coronavirus (COVID-19) Public Health Emergency. I discussed with the patient the nature of his/her telemedicine visits that: - I would evaluate the patient and recommend diagnostics and treatments based on my assessment. - our sessions are not being recorded and that personal health information is being protected to the best of my ability. - our team would provide follow-up care in person if/ when the patient needs it documented in this encounter [facility] 01-29-2024 Instructions Blane Healy MD - 01/29/2024 3:00 PM EDT Continue ASA and statin. Complete event monitor If monitor is negative, reasonable to pursue PFO closure If event monitor is positive for AFib/flutter, will start patient on AC Followup in approx. 5-6 months. Continue to followup with cardiology. documented in this encounter [facility] 12-26-2023 Miscellaneous Notes ----- Message from ANA CRISTINA Hagan sent at 12/26/2023 9:49 AM EDT ----- This is Barbie's BFF. I spoke to PKR and we are just going to proceed w/ getting the EMMA and wireless tele now. I'm waiting on records from [place] to confirm if she needs hypercoag testing or not. I placed the MCOT order, please just help arrange for the EMMA. Left message for pt Images from the original note were not included. Pt called back and scheduled EMMA. Instructed below were given verbally over the phone as well as sent via [employer] [facility]: EMMA Procedure: Transesophageal Echocardiogram Testing Location: [facility] ([address] [place] [address]) Date/Time of Procedure: 01/13/2024 at 08:45 am Registration Location: Emergency Entrance, ARRIVE BY 07:15 am (Please be aware that procedure dates/times are subject to change due to unforeseen emergencies) PRE PROCEDURE REQUIREMENTS (All requirements must be completed prior to procedure or may result in cancellation) Fasting Instructions: [x] NO FOOD OR DRINK for 8 HOURS PRIOR TO PROCEDURE Medication Instructions: Take all your medications with a small sip of water only. Other Instructions: [x] Must have a straight truck driver as you will be unable to drive once discharged Important Information Notify the [facility] of any illness, infection or COVID symptoms or a COVID positive result immediately at [phone] Please notify the [facility] if you have an allergy to contrast dye You may or may not go home the same day of your procedure. Please prepare an overnight bag in case you do stay overnight Please bring your most recent insurance card(s), photo ID, and current list of medications Please be aware, procedures are subject to date/time changes due to unforeseen schedule changes or emergencies at the hospital If you have any questions or concerns about preparing for your procedure, please call the [facility] at [phone] documented in this encounter [facility] 12-26-2023 Telephone encounter Note ----- Message from ANA CRISTINA Hagan sent at 12/26/2023 9:49 AM EDT ----- This is Barbie's BFF. I spoke to PKR and we are just going to proceed w/ getting the EMMA and wireless tele now. I'm waiting on records from [place] to confirm if she needs hypercoag testing or not. I placed the MCOT order, please just help arrange for the EMMA. [facility] 12-26-2023 Telephone encounter Note Left message for pt [facility] 12-26-2023 Telephone encounter Note Images from the original note were not included. Pt called back and scheduled EMMA. Instructed below were given verbally over the phone as well as sent via [employer]. [facility]: EMMA Procedure: Transesophageal Echocardiogram Testing Location: [facility] ([address] [place] [address] [place] [address]) Date/Time of Procedure: 01/13/2024 at 08:45 am Registration Location: Emergency Entrance, ARRIVE BY 07:15 am (Please be aware that procedure dates/times are subject to change due to unforeseen emergencies) PRE PROCEDURE REQUIREMENTS (All requirements must be completed prior to procedure or may result in cancellation) Fasting Instructions: [x] NO FOOD OR DRINK for 8 HOURS PRIOR TO PROCEDURE Medication Instructions: Take all your medications with a small sip of water only. Other Instructions: [x] Must have a straight truck driver as you will be unable to drive once discharged Important Information Notify the [facility] of any illness, infection or COVID symptoms or a COVID positive result immediately at [phone] Please notify the [facility] if you have an allergy to contrast dye You may or may not go home the same day of your procedure. Please prepare an overnight bag in case you do stay overnight Please bring your most recent insurance card(s), photo ID, and current list of medications Please be aware, procedures are subject to date/time changes due to unforeseen schedule changes or emergencies at the hospital If you have any questions or concerns about preparing for your procedure, please call the [facility] at [phone] [employer] 12-26-2023 History of Present illness Narrative Self referral for TIA, suspected PFO/ASD. Prior evaluation with Dr. Palomino, [facility]. Chart reviewed, spoke with PKR. Will proceed with EMMA, 30 day wireless tele, and hypercoag testing (if not already done). Follow-up in clinic after that. Will get all records/images from [facility]. ANA CRISTINA Saba 12/26/23 0949 documented in this encounter [employer] 12-20-2023 Note [facility] [facility] Subjective Solange Lucas is a 38 [...] hair Acne Antepartum hypertension BMI 50.0-59.9, adult ([facility]) Encounter for sterilization Gestational hypertension, third trimester [...] On 12/17/2023 she was admitted to the [facility] after sustaining right arm weakness, difficulty speaking and facial droop. The symptoms resolved within 10 to 15 minutes of onset. During the symptoms, she FaceTime her mother who is a nurse and explained to her what was happening and she was taken to the emergency room at the [facility] where she was admitted and investigation included [...] saline contrast injections show evidence of significant [id number] shunt at the interatrial septal level at [...] (EMMA); Future Conge (more content not included)... [facility] 12-18-2023 Miscellaneous Notes Yasmine Alexandre, ESTHER-DANYELL P [facility] Stroke Scheduling; P [facility] Stroke Nanotechnician; High risk tia. Follow up telemedicine in 4 weeks with dangelo healy fellow. 30 day event monitor on discharge. Also with pfo. May need closure going to see [facility] cardiology to discuss. Called patient and scheduled video visit with Dr. Healy on 01/29/24 at 1500 documented in this encounter [facility] 12-18-2023 Telephone encounter Note OFE Weiss P [facility] Stroke Scheduling; P Pns Stroke Nanotechnician; High risk tia. Follow up telemedicine in 4 weeks with dangelo healy fellow. 30 day event monitor on discharge. Also with pfo. May need closure going to see [facility] cardiology to discuss. Called patient and scheduled video visit with Dr. Healy on 01/29/24 at 1500 [facility] 12-18-2023 Miscellaneous Notes ----- Message from OFE Weiss sent at 12/18/2023 10:36 AM EDT ----- Regarding: follow up High risk tia. Follow up telemedicine in 4 weeks with dangelo healy fellow. 30 day event monitor on discharge. Also with pfo. May need closure going to see [facility] cardiology to discuss. Pt scheduled 01/29/24 documented in this encounter [facility] 12-18-2023 Telephone encounter Note ----- Message from OFE Weiss sent at 12/18/2023 10:36 AM EDT ----- Regarding: follow up High risk tia. Follow up telemedicine in 4 weeks with dangelo healy fellow. 30 day event monitor on discharge. Also with pfo. May need closure going to see [facility] cardiology to discuss. [employer] 12-18-2023 Telephone encounter Note Pt scheduled 01/29/24 [employer] [facility] 05-03-2023 Evaluation note Encounter Date Diagnosis Assessment [...] disorder, 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) [facility] Other 10-16-2023 Evaluation note* Encounter Date Diagnosis Assessment Notes Treatment Notes Treatment Clinical Notes Apr, Mild episode of recurrent major depressive disorder (ICD-10 - F33.0) [facility] Other 10-03-2023 Evaluation note* Encounter Date Diagnosis [...] Treat underlying condition and insomnia should improve [facility] Other 02-22-2023 Evaluation note* Encounter Date Diagnosis Assessment Notes Treatment Notes Treatment Clinical Notes Aug, Pharyngitis due to Streptococcus species (ICD-10 - J02.0) Gargle w/ salt water, tylenol and rest [facility] Other 04-09-2022 History of Present illness Narrative* [...] Message received from ADELA Caceres who is marketing liaison today that my patient has arrived to the unitand she has elevated blood pressures. Hypertension protocol being started and Dr Panda would like to proceed with her repeat section soon. 0906 this write leaves my office and enroute to [place], documented in this [facility] Phone: 1(917) 170-558003-19-2022 History of Present illness Narrative* Shanel S Bless, RN - 09/23/2021 3:40 PM EDT Pt here for scheduled NST. Pt states she is insulin controlled gestational diabetic and [facility] Pt reports + movement today. Pt denies vaginal bleeding or leaking offluid. Pt states that she sometimes has back pain if she stands for too long, pt denies pain currently. Pt denies pain or burning when urinating. Pt denies headache or blurred vision. marker button given. documented in this [employer]scape Phone: [phone]) 927-449312-08-2021 Evaluation note* Encounter Date Diagnosis Assessment Notes [...] Patient care instructions given in writting by [facility] At Home document. [facility] Other Evaluation note* Diagnosis Diet controlled gestational diabetes mellitus (GDM) in third trimester documented in this encounter [employer] Phone: evaluation note* Diagnosis Diet controlled gestational diabetes mellitus (GDM) in third trimester documented in this encounter [employer] Phone: evaluation note* Diagnosis Diet controlled gestational diabetes mellitus (GDM) in third trimester documented in this encounter [employer] Phone: evallecaoi note* Diagnosis Diet controlled gestational diabetes mellitus (GDM) in third trimester documented in this encounter [employer] Phone: evalapipan note* Diagnosis Abdominal pain- Primary Abdominal pain, unspecified site Born by section Hypertension affecting in first trimester Hypertension affecting in third trimester documented in this encounter [employer] Phone: [email or web address] noteNo [facility] [employer] Other Evaluation note* Diagnosis Onset Date Resolution Status Anemia acute PFO (patent foramen ovale) a cute TIA (transient ischemic attack) acute Type 2 diabetes mellitus with hyperglycemia acute [facility] Work Phone: Evaluation note* Diagnosis Inclusion cyst- Primary Sebaceous cyst [facility] Diagnosis Palpitations- Primary PFO (patent foramen ovale) Ostium secundum type atrial septal defect S/P percutaneous patent foramen ovale closure Other postprocedural status TIA (transient ischemic attack) Unspecified transient cerebral ischemia documented in this encounter [facility]* Diagnosis Onset Date Resolution Status Admit Date Anemia acute August 18, 2024 1:20pm Bradycardia acute August 1:20pm Fatigue acute August 18, 2024 1:20pm [facility] Work Phone: Evaluation note* Diagnosis PFO (patent foramen ovale)- Primary Ostium secundum type atrial septal defect TIA (transient ischemic attack) Unspecified transient cerebral ischemia Palpitations documented in this encounter [facility]* Diagnosis TIA (transient ischemic attack)- Primary Unspecified transient cerebral ischemia documented in this encounter [facility]* Diagnosis TIA (transient ischemic attack)- Primary Unspecified transient cerebral ischemia documented in this encounter [facility]* Diagnosis PFO (patent foramen ovale)- Primary Ostium secundum type atrial septal defect PFO (patent foramen ovale)- Primary Ostium secundum type atrial septal defect History of delivery PFO (patent foramen ovale) Ostium secundum type atrial septal defect documented in this encounter [facility]* Diagnosis PFO (patent foramen ovale)- Primary Ostium secundum type atrial septal defect S/P percutaneous patent foramen ovale closure Other postprocedural status documented in this encounter [facility]* Diagnosis Palpitations- Primary documented in this encounter [facility]* Diagnosis Irregular menstrual cycle Menorrhagia with irregular cycle PCOS (polycystic ovarian syndrome) Polycystic ovaries documented in this encounter [facility] Healthcare[facility] note* Diagnosis LOC (loss of consciousness) ([facility] Primary Other alteration of consciousness [facility] - [facility]orted* Type Description Date Medical History anxiety Surgical History back surgery Surgical History tonsillectomy Surgical History C section Surgical History PE tubes Surgical History adnoidectomy Hospitalization History child [facility] Other History general Narrative - Reported* Type [...] History child Hospitalization History SEE SURGICAL HX [facility] Other Hismmxp general Narrative - Reported* Type Description Date [...] Hospitalization History child Hospitalization History SEE SURGICAL [facility] Other Hospital Discharge instructions* Attachments The following attachments cannot be sent through Care Everywhere. * Section: Post-op ([place]) * ([place]) * Video: Caring for Yourself After Delivery ([place]) * : Exercises ([place]) * Depression: ([place]) * Parenting: Stress and Infants ([place]) documented [facility] Work Phone: InstructionsNot on filedocumented in this encounter [facility] filedocumented in this encounter [facility] filedocumented in this encounter [facility] on filedocumented in this encounter [facility] on filedocumented in this encounter [facility]ructionsNot on filedocumented in this encounter [facility]Not on filedocumented in this encounter [facility] System[facility]ructionsNot on filedocumented in this encounter [facility] Summary Purpose Family History No Family History Records Found Relationship Condition Age at Onset Recorded Date/T eladio Not Specified Diabetes mellitus Unknown Relationship Condition Age at Onset Recorded Date/T eladio mother Diabetes mellitus Unknown Advance Directives No Advanced Directives Records FoundLatest Code Status on File Code Status Date Activated Date Inactivated Comments Full Code 10/12/2021 9:23 AM 10/12/2021 1:23 PM Advance Directive Response Recorded Date/ Time Advance Directives No April 19, 2021 10:55am Advance Directive Response Recorded Date/ Time Advance Directives No April 19, 2021 9:55am Chief Complaint and Reason for Visit Chief Complaint hospital follow up Reason for Visit Anemia PFO (patent foramen ovale) TIA (transient ischemic attack) Type 2 diabetes mellitus with hyperglycemia Chief Complaint Admit Date [facility] ER:Syncope August 18, 2024 1:20pm Reason for Visit Admit Date Anemia August 18, 2024 1:20pm Bradycardia August 18, 2024 1:20pm Fatigue August 18, 2024 1:20pm Reason for Referral Specialty Diagnoses / Procedures Referred By Leila t Referred To Contact Diagnoses PFO (patent foramen ovale) S/P percutaneous patent foramen ovale closure Procedures Echo complete W/O contrast Mick Jett PA [address] [place] [address] Referral ID Status Reason Start Date Expiration Date V isits Requested Visits Authorized [id number] Pending Review 03/23/2024 03/23/2025 1 1 Specialty Diagnoses / Procedures Referred By Contac t Referred To Contact Diagnoses PFO (patent foramen ovale) TIA (transient ischemic attack) Palpitations Procedures Wireless Telemetry (In Office) Mick Jett PA [address] [address] Referral ID Status Reason Start Date Expiration Date V isits Requested Visits Authorized [id number] Pending Review 12/26/2023 12/25/2024 1 1 Additional Source Comments INFORMATION SOURCE (unrecogn ized section and content) DATE CREATED AUTHOR 12/31/2017 [facility] DATE CREATED AUTHOR AUTHOR'S ORGANIZ ATION 05/15/2021 [facility] DATE CREATED AUTHOR AUTHOR'S ORGANIZ ATION 06/21/2021 [facility] DATE CREATED AUTHOR AUTHOR'S ORGANIZ ATION 09/27/2021 [facility]ical Specialist DATE CREATED AUTHOR AUTHOR'S ORGANIZ ATION 10/16/2021 [facility] DATE CREATED AUTHOR AUTHOR'S ORGANIZ ATION 08/28/2022 [facility] p[facility] DATE CREATED AUTHOR AUTHOR'S ORGANIZ ATION 12/21/2023 [facility] DATE CREATED AUTHOR AUTHOR'S ORGANIZ ATION 04/28/2024 [facility] DATE CREATED AUTHOR AUTHOR'S ORGANIZ ATION 06/21/2024 [facility] DATE CREATED AUTHOR AUTHOR'S ORGANIZ ATION 08/25/2024 [facility] Specialists EPIC DATE CREATED AUTHOR AUTHOR'S ORGANIZ ATION 08/29/[address] [facility] Reason for Visit (unrecogniz ed section and content) Reason Comments Non-stress Test Reason Comments Abdominal Pain Specialty Diagnoses / Procedures Referred By Contac t Referred To Contact Diagnoses Abdominal pain Hypertension affecting in first trimester Hypertension affecting in third trimester Bryanna Barth, BISQUE FINISHER - CNM [address] [place] [address] [facility] [id number] [place] [address] Referral ID Status Reason Start Date Expiration Date Visits Re quested Visits Authorized 1 1 Reason Comments Follow-up ov palps f/u mcot sc hed w-pt Reason Comments Follow-up discuss PFO closure f/u EM sched w-pt -NEURO APPT 01-28 DR HEALY Reason Onset Date Comments PFO Closure Reminder 03/05/2024 Reason Comments Follow-up OV F/U W KKY PFO 03/12-APPT SCHED W PT-PT REQUEST APPT ON 03/23 last week had an episode of extreme dizziness, unsteadiness/balance control with some focal disturbance. Pt stated it felt like being the drunkest you've ever been . Lasted approx 20 minutes. No issues since. Reason Comments Ablation Consult Care Teams (unrecognized sec tion and content) Sap Pi Architect Relationship Specialty Start Date End Date Edward Mcqueen, DO [address] [place] [address] PCP - General Internal Medicine 06/21/21 Sap Pi Architect Relationship Specialty Start Date End Date Edward Mcqueen, DO [address] [facility] [place] [address] PCP - General Internal Medicine 06/21/21 Sap Pi Architect Relationship Specialty Start Date End Date Edward Mcqueen, DO [address] [place] [address] PCP - General Internal Medicine 06/21/21 Sap Pi Architect Relationship Specialty Start Date End Date Edward Mcqueen, DO [address] [place] [address] PCP - General Internal Medicine 06/21/21 Sap Pi Architect Relationship Specialty Start Date End Date Edward Mcqueen, DO [address] [place] [address] PCP - General Internal Medicine 06/21/21 Sap Pi Architect Relationship Specialty Start Date End Date Edward Mcqueen DO [address] [place] [address] PCP - General Internal Medicine 06/21/21 Team [...] December 23, 2023 End: December 23, 2023 Sap Pi Architect Relationship Specialty [place] [address] [place] [address] [id number] PCP - General Internal Medicine 05/19/18 Sap Pi Architect Relationship Specialty [place] [address] [place] [address] [id number] PCP - General Internal Medicine 05/19/18 Sap Pi Architect Relationship Specialty Start [place] [address] [place] [address] [id number] PCP - General Internal Medicine 05/19/18 Team Status: Active Member Role Status Dates Edward Mcqueen DO Primary Care Provider Active Start: August 17, 2024 Nathanael Morales DO Attending Provider Active S tart: August 17, 2024 Team Status: Inactive Member Role Status Dates Edward Mcqueen DO Primary Care Provide r, Attending Provider Active Start: August 18, 2024 End: August 18, 2024 Sap Pi Architect Relationship Specialty [place] [address] [place] [address] [id number] PCP - General Internal Medicine 05/19/18 Sap Pi Architect Relationship Specialty Start Date End Date Edward Mcqueen DO [address] [place] [address] PCP - General Internal Medicine 05/19/18 Sap Pi Architect Relationship Specialty Start Date End Date Edward Mcqueen DO [address] [place] [address] PCP - General Internal Medicine 05/19/18 Sap Pi Architect Relationship Specialty Start Date End Date Edward Mcqueen DO [address] [place] [address] PCP - General Internal Medicine 05/19/18 Sap Pi Architect Relationship Specialty Start Date End Date Edward Mcqueen DO [address] [place] [address] PCP - General Internal Medicine 05/19/18 Sap Pi Architect Relationship Specialty Start Date End Date Edward Mcqueen DO [address] [place] [address] PCP - General Internal Medicine 05/19/18 Sap Pi Architect Relationship Specialty Start Date End Date Edward Mcqueen DO [address] [place] [address] PCP - General Internal Medicine 05/19/18 Ordered [...] (Stopped - Provider: Ruben Mccabe APRN - RADIATION CONTROL TECHNICIAN) docusate sodium (COLACE) capsule 100 mg 100 [...] SHANON) 0151 (Given - Provider: Elif Prince, SHANON) [...] Bag - Provider: Ruben Mccabe APRN - RADIATION CONTROL TECHNICIAN - Comment: given over 60 minutes.) ibuprofen (ADVIL;MOTRIN) tablet 800 mg 800 mg, Oral, EVERY 8 HOURS, First dose on Sat10/13/21 at 1830, Until Discontinued, Do not start till 6 hours after last dose of toradol. Do not crush or break., Post-op 1804 (Given - Provider: Leda Glez, SHANON) 0151 (Given - Provider: Elif Prince, RN)1031 (Given - Provider: Leda Glez RN)1830 (Due) insulin lispro (HUMALOG) injection vial 0-3 Units 0-3 Units, SubCUTAneous, NIGHTLY, First dose on Denisha 10/12/21 at 2100, Until Discontinued, If continuous tube feedings/TPN/NPO, give correction dose based on result, no reduction in dose. If eating or bolus tube feeding: Low Dose Bedtime Correction Algorithm Glucose: Dose: 70-139 No Insulin 140-249 1 Unit 250-349 2 Units 350 and above 3 Units 2147 (Given - Provider: Lilo Kulkarni RN - Comment: POCT 229) 204 (Given - Provider: Elif Prince, SHANON) 2100 [...] Kulkarni, SHANON) 0625 (Given - Provider: Lilo Kulkarni, SHANON)1445 (Given - Provider: Leda Glez RN)2240 (Given [...] Provider: Lilo Kulkarni RN)1445 (Given - Provider: eLda Glez RN)2239 (Given - Provider: Elif Prince RN - Comment: Pt request) 0600 (Due)1400 (Due) vitamin 27-1 MG tablet 1 tablet 1 tablet, Oral, DAILY, First dose on Denisha 10/12/21 at 1345, Until Discontinued, Begin when normal bowel activity resumes., 1701 (Not Given - Provider: Milla Davis RN - Reason: Other) 0807 (Given - Provider: Nohemy Nuñez RN) 0930 (Given - Provider: Leda Glez, [...] Reason: Other - Comment: IV removed)2100 (Due) dcjkaui-nudbzh-xxtjd pertussis (BOOSTRIX) injection 0.5 mL 0.5 mL, [...] (NoRateChange - Provider: Ruben Mccabe APRN - RADIATION CONTROL TECHNICIAN) lactated ringers infusion IntraVENous, at 50 mL/hr, CONTINUOUS, Starting on Denisha 10/12/21 at 1345, 1256 (Rate/Dose Change - Provider: Milla Davis RN)2150 (Rate/Dose Change - Provider: Lilo Kulkarni RN)2245 (Rate/Dose Change - Provider: Lilo Kulkarni RN) 0522 (Rate/Dose Change - Provider: Lilo Kulkarni RN) 1127 (Stopped - Provider: Leda Glez RN) magnesium sulfate (48121 mg/500mL infusion) (CANCELED) 2,000 mg/hr (50 mL/hr), [...] (NoRateChange - Provider: Ruben Mccabe APRN - RADIATION CONTROL TECHNICIAN) magnesium sulfate (13251 mg/500mL infusion) () 1,000 mg/hr (25 mL/hr), [...] Nohemy Nuñez RN)2046 (Given - Provider: Elif Prince RN) oxyCODONE-acetaminophen (PERCOCET) 5-325 MG per tablet 2 tablet(Linked Group 1) Mg/kg dosing is based on the oxycodone component., 2 tablet, Oral, EVERY 4 HOURS PRN, Starting on Denisha 10/12/21 at 1323, Until Discontinued, Pain Severe (7-10), Maximum dose of acetaminophen is 4000 mg from all sources in 24 hours., 1700 (See Alternative - Provider: Milla Davis RN) 1040 (See Alternative - Provider: Nohemy Nuñez RN)2046 (See Alternative - Provider: Elif Prince RN) [...] Kulkarni RN) 1128 (Stopped - Provider: Leda Glez, SHANON) [...] BE BASED ON THE PRIMARY CLINICAL RECORDS. [facility]. provides no warranty or guarantee of the accuracy or completeness of information in this document.
== END 2024-08-31 14:38 | disposition home or self-care (01) ==
LOC: CARD 14:37
PROVIDERS: PCP Internal Medicine; Visit Provider Internal Medicine
DX: R00.1 Bradycardia, unspecified (principal)
CPT/HCPCS: 93246

== ENCOUNTER 2024-09-02 08:29 | Emergency (ER) | payer BC, SELFPAY ==
[2024-09-02] VITALS (20 sets, daily range): BP systolic 96–113; BP diastolic 54–75; PULSE 63–80; TEMP 36.5; O2SAT 99–100; BMI 28.3
--- NOTE | 2024-09-02 08:47 | ECG_ITS ---
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
--- OUTSIDE RECORDS SUMMARY | 2024-09-02 08:59 | XMS_ITS | CCD ---
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 Name Role Phone Bentley Amin Unavailable [...] to adverse reactions to drug 03-13-20 17 [facility] (20 sources) Penicillin G; Translations: [PENICILLIN G] Drug Allergy [facility] Drug Allergy 03-16-20 14 Unknown [employer] [facility] Other (4 sources) Substance with penicillin structure and antibacterial mechanism of action (substance) Drug allergy 01-14-20 18 Unknown [employer] Other (3 sources) patient allergy list reviewed by nurse or physicia Propensity to adverse reactions 02-27-20 17 Comment:Done [employer] Other (3 sources) Allergies Reconciled Propensity to adverse reactions Unknown [employer] Other Medications Current Medications Medication Drug [...] mg docusate sodium 50 mg / sennosides, alf 8.6 mg oral tablet (1 source) Start: [...] take 1 tablet by mouth at mealti ms ferrous sulfate 325 (65 Fe) MG tablet [...] 10-13-2021 ketorolac (TORADOL) injection 30 mg levonorgestrel 0.675306 mg/hr intrauterine system (9 sources) Progestin, Progestin-containing [...] premix Start: 10-12-2021 End: 10-13-2021 magnesium sulfate (68558 mg/ 500mL infusion) 2 ml metoclopramide 5 [...] Basophils (Bld) [#/Vol] Automated basophil count 0.0-0.1 [facility] Basophils/100 WBC Auto (Bld) on 08-17-2024 Basophils/100 WBC (Bld) Automated basophil % 0.2-2.0 [facility] Eosinophils/100 WBC Auto (Bl d)on 08-17-2024 Eosinophils/100 WBC (Bld) Automated eosinophil % Low 0.9-7.0 [facility] Erythrocyte distribution wid th Auto (RBC) [Ratio]on 08-17-2024 Erythrocyte distribution width (RBC) [Ratio] Erythrocyte distribution width [Ratio] by Automated count High 11.0-15.0 [facility] Estimated glomerular filtrat ion rate (GFR) non- Americanon 08-17-2024 GFR/1.73 sq M.predicted among non-blacks MDRD (S/P/Bld) [Vol rate/Area] Estimated glomerular filtration rate (GFR) non- >=60 mL/min/1.7 3m 2 [facility] Hematocrit Auto (Bld) [Volum e fraction]on 08-17-2024 Hematocrit (Bld) [Volume fraction] Hematocrit [Volume Fraction] of Blood by Automated count Low 36.0-48.0 [facility] Hemoglobin [Mass/volume] in Bloodon 08-17-2024 Hemoglobin (Bld) [Mass/Vol] Hemoglobin [Mass/volume] in Blood Low 12.0-16.0 [facility] Laboratory - Chemistry and C hemistry - challengeon 08-17-2024 Calcium [Mass/Vol] 7.9 mg/dL Low 8.5-10.1 [facility] Chloride [Moles/Vol] 104 mmol/L 98-107 [facility] CO2 [Moles/Vol] 29.6 mmol/L 21.0-32.0 [facility] Creatinine [Mass/Vol] 0.60 mg/dL 0.55-1.02 [facility] GFR/1.73 sq M.predicted MDRD (S/P/Bld) [Vol rate/Area] mL/min/{1.73_m2} >=60 mL/min/1.7 3m 2 [facility] Glucose [Mass/Vol] 105 mg/dL 74-106 [facility] Potassium [Moles/Vol] 3.4 mmol/L Low 3.5-5.1 [facility] Sodium [Moles/Vol] 141 mmol/L 136-145 [facility] Urea nitrogen [Mass/Vol] 10.0 mg/dL 7.0-18.0 [facility] Urea nitrogen/Creatinine [Mass ratio] 16.7 mg/mg [facility] Laboratory - Hematology and Cell countson 08-17-2024 Immature granulocytes/100 WBC (Bld) 0.2 % 0.0-0.5 [facility] Leukocytes [#/volume] correc alfredito for nucleated erythrocytes in Blood by Automated counon 08-17-2024 WBC corrected for nucl RBC Auto (Bld) [#/Vol] Leukocytes [#/volume] corrected for nucleated erythrocytes in Blood by Automated coun 4.0-11.0 [facility] Lymphocytes Auto (Bld) [#/Vo l]on 08-17-2024 Lymphocytes (Bld) [#/Vol] Lymphocytes [#/volume] in Blood by Automated count 1.2-3.8 [facility] Lymphocytes/100 WBC Auto (Bl d)on 08-17-2024 Lymphocytes/100 WBC (Bld) Lymphocytes/100 leukocytes in Blood by Automated count 20.5-60.0 [facility] MCH Auto (RBC) [Entitic mass ]on 08-17-2024 MCH (RBC) [Entitic mass] MCH [Entitic mass] by Automated count Low 26.7-34.0 [facility] MCHC Auto (RBC) [Mass/Vol]on 08-17-2024 MCHC (RBC) [Mass/Vol] MCHC [Mass/volume] by Automated count Low 29.9-35.2 [facility] MCV Auto (RBC) [Entitic vol] on 08-17-2024 MCV (RBC) [Entitic vol] MCV [Entitic volume] by Automated count Low 81.0-99.0 [facility] Monocytes Auto (Bld) [#/Vol] on 08-17-2024 Monocytes (Bld) [#/Vol] Automated blood monocyte count 0.3-0.8 [facility] Monocytes/100 WBC Auto (Bld) on 08-17-2024 Monocytes/100 WBC (Bld) Automated monocyte % 1.7-12.0 [facility] Neutrophils Auto (Bld) [#/Vo l]on 08-17-2024 Neutrophils (Bld) [#/Vol] Neutrophils [#/volume] in Blood by Automated count 1.4-6.5 [facility] Neutrophils/100 WBC Auto (Bl d)on 08-17-2024 Neutrophils/100 WBC (Bld) Automated neutrophil % Low 43.0-75.0 [facility] No Panel Informationon 08-17 Bedside Influenza Type A Antigen Negative [facility] Comment on above: Negative for Flu A p rotein antigen. Infection due to Flu Acannot be ruled out. Flu A antigen in the sample may bebelow the detection limit of the test. Bedside Influenza Type B Antigen Negative [facility] Comment on above: Negative for Flu B p rotein antigen. Infection due to Flu Bcannot be ruled out. Flu B antigen in the sample may bebelow the detection limit of the test. Eosinophils # (Auto) 0.0 10 3/uL 0.0-0.7 [facility] Immature Granulocyte # (Auto) 0.01 10 3/uL 0.00-0.03 [facility] Platelet mean volume Auto (B ld) [Entitic vol]on 08-17-2024 Platelet mean volume (Bld) [Entitic vol] Platelet mean volume [Entitic volume] in Blood by Automated count 9.5-13.5 [facility] Platelets Auto (Bld) [#/Vol] on 08-17-2024 Platelets (Bld) [#/Vol] Platelets [#/volume] in Blood by Automated count 150-450 [facility] RBC Auto (Bld) [#/Vol]on RBC (Bld) [#/Vol] Erythrocytes [#/volu me] in Blood by Automated count 4.20-5.40 [facility] Serum or plasma anion gap de terminationon 08-17-2024 Anion gap [Moles/Vol] Serum or plasma anion gap determination [facility] POCT [facility] 07-31-2024 [facility] Diatomaceous earth induc ed (Bld)on 03-13-2024 [facility] CLOT TIME LR 298 sec High 89-169 [facility] Comment on above: Performed By: #### [id number] #### [facility] ([id number]) [address] [place] [address] Office Visiton 12-20-2023 Follow-up visit [id number] Shamir Lucas 1985 F Date Provider Department Center 12/20/2023 [facility] Family History Problem Relation Age of Onset Diabetes Mother Hypertension Father Atrial fibrillation Brother Lung cancer Paternal Grandfather Family Status - Relation Status Age at Mother Father Brother Maternal Grandmother Alive Paternal Grandfather Level of Service:[address] [place] PHYS/QHP TELEPHONE EVALUATION 21-[address] [facility] Basophils Auto (Bld) [#/Vol] on 12-18-2023 Basophils (Bld) [#/Vol] 0.0 10 3/uL 0.0-0.1 [facility] Basophils/100 WBC Auto (Bld) on 12-18-2023 Basophils/100 WBC (Bld) 0.7 % 0.2-2.0 [facility] Eosinophils/100 WBC Auto (Bl d)on 12-18-2023 Eosinophils/100 WBC (Bld) 1.5 % 0.9-7.0 [facility] Erythrocyte distribution wid th Auto (RBC) [Ratio]on 12-18-2023 Erythrocyte distribution width (RBC) [Ratio] 18.0 % 11.0-15.0 [facility] Estimated glomerular filtrat ion rate (GFR) non- Americanon 12-18-2023 GFR/1.73 sq M.predicted among non-blacks MDRD (S/P/Bld) [Vol rate/Area] mL/min/{1.73_m2} >=60 [facility] Globulin Calc (S) [Mass/Vol] on 12-18-2023 Globulin (S) [Mass/Vol] 3.1 g/dL [facility] Hematocrit Auto (Bld) [Volum e fraction]on 12-18-2023 Hematocrit (Bld) [Volume fraction] 27.9 % 36.0-48.0 [facility] Hemoglobin [Mass/volume] in Bloodon 12-18-2023 Hemoglobin (Bld) [Mass/Vol] 8.2 g/dL 12.0-16.0 [facility] Laboratory - Chemistry and C hemistry - challengeon 12-18-2023 Albumin [Mass/Vol] 2.8 g/dL 3.4-5.0 [facility] ALP [Catalytic activity/Vol] 67 U/L 46-116 [facility] ALT [Catalytic activity/Vol] 14 U/L 14-59 [facility] AST [Catalytic activity/Vol] 8 U/L 15-37 [facility] Bilirubin [Mass/Vol] 0.4 mg/dL 0.2-1.0 [facility] Calcium [Mass/Vol] 7.8 mg/dL 8.5-10.1 [facility] Chloride [Moles/Vol] 108 mmol/L 98-107 [facility] CO2 [Moles/Vol] 25.7 mmol/L 21.0-32.0 [facility] Creatinine [Mass/Vol] 0.60 mg/dL 0.55-1.02 [facility] GFR/1.73 sq M.predicted MDRD (S/P/Bld) [Vol rate/Area] mL/min/{1.73_m2} >=60 [facility] Glucose [Mass/Vol] 75 mg/dL 74-106 [facility] Potassium [Moles/Vol] 3.7 mmol/L 3.5-5.1 [facility] Protein [Mass/Vol] 5.9 g/dL 6.4-8.2 [facility] Sodium [Moles/Vol] 139 mmol/L 136-145 [facility] Urea nitrogen [Mass/Vol] 9.0 mg/dL 7.0-18.0 [facility] Urea nitrogen/Creatinine [Mass ratio] 15.0 mg/mg [facility] Laboratory - Hematology and Cell countson 12-18-2023 Immature granulocytes/100 WBC (Bld) 0.2 % 0.0-0.5 [facility] Leukocytes [#/volume] correc alfredito for nucleated erythrocytes in Blood by Automated counon 12-18-2023 WBC corrected for nucl RBC Auto (Bld) [#/Vol] 5.9 10 3/uL 4.0-11.0 [facility] Lymphocytes Auto (Bld) [#/Vo l]on 12-18-2023 Lymphocytes (Bld) [#/Vol] 2.4 10 3/uL 1.2-3.8 [facility] Lymphocytes/100 WBC Auto (Bl d)on 12-18-2023 Lymphocytes/100 WBC (Bld) 41.3 % 20.5-60.0 [facility] MCH Auto (RBC) [Entitic mass ]on 12-18-2023 MCH (RBC) [Entitic mass] 21.0 pg 26.7-34.0 [facility] MCHC Auto (RBC) [Mass/Vol]on 12-18-2023 MCHC (RBC) [Mass/Vol] 29.4 g/dL 29.9-35.2 [facility] MCV Auto (RBC) [Entitic vol] on 12-18-2023 MCV (RBC) [Entitic vol] 71.5 fL 81.0-99.0 [facility] Monocytes Auto (Bld) [#/Vol] on 12-18-2023 Monocytes (Bld) [#/Vol] 0.4 10 3/uL 0.3-0.8 [facility] Monocytes/100 WBC Auto (Bld) on 12-18-2023 Monocytes/100 WBC (Bld) 6.6 % 1.7-12.0 [facility] Neutrophils Auto (Bld) [#/Vo l]on 12-18-2023 Neutrophils (Bld) [#/Vol] 2.9 10 3/uL 1.4-6.5 [facility] Neutrophils/100 WBC Auto (Bl d)on 12-18-2023 Neutrophils/100 WBC (Bld) 49.7 % 43.0-75.0 [facility] No Panel Informationon 12-17 Eosinophils # (Auto) 0.1 10 3/uL 0.0-0.7 [facility] Immature Granulocyte # (Auto) 0.01 10 3/uL 0.00-0.03 [facility] Platelet mean volume Auto (B ld) [Entitic vol]on 12-18-2023 Platelet mean volume (Bld) [Entitic vol] 10.4 fL 9.5-13.5 [facility] Platelets Auto (Bld) [#/Vol] on 12-18-2023 Platelets (Bld) [#/Vol] 247 10 3/uL 150-450 [facility] RBC Auto (Bld) [#/Vol]on RBC (Bld) [#/Vol] 3.90 10 6/uL 4.20-5.40 [facility] Serum or plasma albumin/glob ulin mass ratioon 12-18-2023 Albumin/Globulin [Mass ratio] 0.9 {ratio} [facility] Serum or plasma anion gap de terminationon 12-18-2023 Anion gap [Moles/Vol] 9.0 mmol/L [facility] Activated partial thrombopla stin time (aPTT) in platelet poor plasma by coagulation aon 12-17-2023 aPTT Coag (PPP) [Time] 26.5 s 22.3-36.2 [facility] Basophils Auto (Bld) [#/Vol] on 12-17-2023 Basophils (Bld) [#/Vol] 0.0 10 3/uL 0.0-0.1 [facility] Basophils/100 WBC Auto (Bld) on 12-17-2023 Basophils/100 WBC (Bld) 0.7 % 0.2-2.0 [facility] Cholesterol in LDL Calc [Mas s/Vol]on 12-17-2023 Cholesterol in LDL [Mass/Vol] 64.4 mg/dL [facility] Comment on above: <100 mg/dl [id number] 0-129 mg/dl NEAR OR ABOVE [id number] mg/dl BORDERLINE [id number] mg/dl HIGH>190 mg/dl VERY HIGH Cholesterol in VLDL Calc [Ma ss/Vol]on 12-17-2023 Cholesterol in VLDL [Mass/Vol] 10.6 mg/dL [facility] Eosinophils/100 WBC Auto (Bl d)on 12-17-2023 Eosinophils/100 WBC (Bld) 1.5 % 0.9-7.0 [facility] Erythrocyte distribution wid th Auto (RBC) [Ratio]on 12-17-2023 Erythrocyte distribution width (RBC) [Ratio] 17.8 % 11.0-15.0 [facility] Estimated glomerular filtrat ion rate (GFR) non- Americanon 12-17-2023 GFR/1.73 sq M.predicted among non-blacks MDRD (S/P/Bld) [Vol rate/Area] mL/min/{1.73_m2} >=60 [facility] Globulin Calc (S) [Mass/Vol] on 12-17-2023 Globulin (S) [Mass/Vol] 3.6 g/dL [facility] Glucose mean value [Mass/vol ume] in Blood Estimated from glycated hemoglobinon 12-17-2023 Average glucose Estimated from glycated hemoglobin (Bld) [Mass/Vol] 114 mg/dL [facility] Hematocrit Auto (Bld) [Volum e fraction]on 12-17-2023 Hematocrit (Bld) [Volume fraction] 31.4 % 36.0-48.0 [facility] Hemoglobin [Mass/volume] in Bloodon 12-17-2023 Hemoglobin (Bld) [Mass/Vol] 9.2 g/dL 12.0-16.0 [facility] INR in Platelet poor plasma by Coagulation assayon 12-17-2023 INR Coag (PPP) [Relative time] 1.07 {INR} [facility] Comment on above: DESIRED INR:2.0-3.0 CONDITIONS NOT LISTED BELOW2.5-3.5 FOR PROSTHETIC HEART VALVE REPLACEMENT2.5-3.5 RECURRENT THROMBOSIS Iron binding capacity [Mass/ volume] in Serum or Plasmaon 12-17-2023 Iron binding capacity [Mass/Vol] 443.0 ug/dL 250.0-450. 0 [facility] Iron saturation [Mass Fracti on] in Serum or Plasmaon 12-17-2023 Iron saturation [Mass fraction] 3.6 % [facility] Laboratory - Chemistry and C hemistry - challengeon 12-17-2023 Albumin [Mass/Vol] 3.3 g/dL 3.4-5.0 [facility] ALP [Catalytic activity/Vol] 79 U/L 46-116 [facility] ALT [Catalytic activity/Vol] 17 U/L 14-59 [facility] AST [Catalytic activity/Vol] 16 U/L 15-37 [facility] Bilirubin [Mass/Vol] 0.6 mg/dL 0.2-1.0 [facility] Calcium [Mass/Vol] 8.1 mg/dL 8.5-10.1 [facility] Chloride [Moles/Vol] 105 mmol/L 98-107 [facility] Cholesterol [Mass/Vol] 125 mg/dL <=200 [facility] Cholesterol in HDL [Mass/Vol] 50 mg/dL 40-60 [facility] Comment on above: > or =60 mg/dl - LOW CARDIOVASCULAR RISK<40 mg/dl - HIGH CARDIOVASCULAR RISK CO2 [Moles/Vol] 27.0 mmol/L 21.0-32.0 [facility] Cobalamin (Vitamin B12) [Mass/Vol] 209.0 pg/mL 193.0-986. 0 [facility] Creatinine [Mass/Vol] 0.70 mg/dL 0.55-1.02 [facility] Ferritin [Mass/Vol] 6.0 ng/mL 8.0-252.0 [facility] GFR/1.73 sq M.predicted MDRD (S/P/Bld) [Vol rate/Area] mL/min/{1.73_m2} >=60 [facility] Glucose [Mass/Vol] 94 mg/dL 74-106 [facility] Iron [Mass/Vol] 16.0 ug/dL 50.0-170.0 [facility] Magnesium [Mass/Vol] 2.4 mg/dL 1.8-2.4 [facility] Potassium [Moles/Vol] 3.5 mmol/L 3.5-5.1 [facility] Protein [Mass/Vol] 6.9 g/dL 6.4-8.2 [facility] Sodium [Moles/Vol] 141 mmol/L 136-145 [facility] Triglyceride [Mass/Vol] 53 mg/dL <=150 [facility] TSH Qn 1.336 m[IU]/L 0.358-3.74 0 [facility] Urea nitrogen [Mass/Vol] 10.0 mg/dL 7.0-18.0 [facility] Urea nitrogen/Creatinine [Mass ratio] 14.3 mg/mg [facility] Laboratory - Hematology and Cell countson 12-17-2023 HbA1c (Bld) [Mass fraction] 5.6 % 4.5-6.2 [facility] Comment on above: ADA RECOMMENDED LIMI T 4.0 - 6.0ADA THERAPEUTIC TARGET < 7.0ACTION SUGGESTED> 7.0 Immature granulocytes/100 WBC (Bld) 0.2 % 0.0-0.5 [facility] Leukocytes [#/volume] correc alfredito for nucleated erythrocytes in Blood by Automated counon 12-17-2023 WBC corrected for nucl RBC Auto (Bld) [#/Vol] 5.5 10 3/uL 4.0-11.0 [facility] Lymphocytes Auto (Bld) [#/Vo l]on 12-17-2023 Lymphocytes (Bld) [#/Vol] 2.5 10 3/uL 1.2-3.8 [facility] Lymphocytes/100 WBC Auto (Bl d)on 12-17-2023 Lymphocytes/100 WBC (Bld) 46.2 % 20.5-60.0 [facility] MCH Auto (RBC) [Entitic mass ]on 12-17-2023 MCH (RBC) [Entitic mass] 20.9 pg 26.7-34.0 [facility] MCHC Auto (RBC) [Mass/Vol]on 12-17-2023 MCHC (RBC) [Mass/Vol] 29.3 g/dL 29.9-35.2 [facility] MCV Auto (RBC) [Entitic vol] on 12-17-2023 MCV (RBC) [Entitic vol] 71.4 fL 81.0-99.0 [facility] Monocytes Auto (Bld) [#/Vol] on 12-17-2023 Monocytes (Bld) [#/Vol] 0.4 10 3/uL 0.3-0.8 [facility] Monocytes/100 WBC Auto (Bld) on 12-17-2023 Monocytes/100 WBC (Bld) 6.6 % 1.7-12.0 [facility] Neutrophils Auto (Bld) [#/Vo l]on 12-17-2023 Neutrophils (Bld) [#/Vol] 2.4 10 3/uL 1.4-6.5 [facility] Neutrophils/100 WBC Auto (Bl d)on 12-17-2023 Neutrophils/100 WBC (Bld) 44.8 % 43.0-75.0 [facility] No Panel Informationon 12-16 Eosinophils # (Auto) 0.1 10 3/uL 0.0-0.7 [facility] Folate 12.40 ng/mL 8.60-58.90 [facility] Immature Granulocyte # (Auto) 0.01 10 3/uL 0.00-0.03 [facility] Troponin I High Sensitivity 6.3 pg/mL 4.0-51.3 [facility] Comment on above: CUT-OFF POINTS [...] volume (Bld) [Entitic vol] 10.1 fL 9.5-13.5 [facility] Platelets Auto (Bld) [#/Vol] on 12-17-2023 Platelets (Bld) [#/Vol] 283 10 3/uL 150-450 [facility] Prothrombin time (PT)on 12-06 PT Coag (PPP) [Time] 11.3 s 9.0-11.6 [facility] RBC Auto (Bld) [#/Vol]on RBC (Bld) [#/Vol] 4.40 10 6/uL 4.20-5.40 [facility] Reticulocytes/100 RBC Auto ( Bld)on 12-17-2023 Reticulocytes/100 RBC (Bld) 0.95 % 0.60-3.10 [facility] Serum or plasma albumin/glob ulin mass ratioon 12-17-2023 Albumin/Globulin [Mass ratio] 0.9 {ratio} [facility] Serum or plasma anion gap de terminationon 12-17-2023 Anion gap [Moles/Vol] 12.5 mmol/L [facility] Serum or plasma total choles terol/high density lipoprotein (HDL) cholesterol mass vasiliy 12-17-2023 Cholesterol.total/C holesterol in HDL [Mass ratio] 2.5 {ratio} [facility] Comment on above: 3.3 - 4.4 LOW RISK4. 4 - 7.1 AVERAGE RISK7.1 - 11.0 MODERATE RISK>11.0 HIGH RISK NICOTINE METABOLITESon 08-27 Cotinine <1.0 Normal [facility] Comment on above: Result Comment: This test was developed and its performance characteristics determined by [employer]. It has not been cleared or approved by the Food and Drug Administration. Cotinine levels greater than 20.0 are consistent with the use of tobacco or tobacco cessation products. Performed By: #### N ICTBLD #### [facility] [address] [place] [address] Dr. Malcolm Gil Nicotine <1.0 Normal [facility] Comment on above: Result Comment: This test was developed and its performance characteristics determined by [employer]. It has not been cleared or approved by the Food and Drug Administration. Nicotine levels greater than 2.0 are consistent with the use of tobacco or tobacco cessation products. Performed By: #### N ICTBLD #### [facility] [address] [address] [address] Malcolm Gil GLYCOHEMOGLOBIN A1Con 2022 ADA RECOMMENDATION SEE BELOW Normal [facility] Comment on above: Result Comment: ADA RECOMMENDED LIMIT 4.0 - 6.0 ADA THERAPEUTIC TARGET < 7.0 ACTION SUGGESTED > 7.0 Performed By: #### A 1C #### [facility] [address] [address] [address] Malcolm Gil Glucose [Mass/Vol] 163 mg/dL [facility] Comment on above: Performed By: #### A 1C #### [facility] [address] [place] [address] Dr. Mlacolm Gil HbA1c (Bld) [Mass fraction] 7.3 % Critically high 4.5-6.2 [facility] Comment on above: Performed By: #### A 1C #### [facility] [address] [place], [place] [address] Dr. Malcolm Gil Glucose, Whole Bloodon 10-14 Glucose [Mass/Vol] 85 mg/dL 74 - 100 mg/dL [facility] Glucose, Whole Bloodon 10-13 Glucose [Mass/Vol] 161 mg/dL High 74 - 100 mg/dL [facility] Interpretation and review of laboratory results Abnormal [facility] Glucose [Mass/Vol] 168 mg/dL High 74 - 100 mg/dL [facility] Interpretation and review of laboratory results Abnormal [facility] Glucose [Mass/Vol] 136 mg/dL High 74 - 100 mg/dL [facility] Interpretation and review of laboratory results Abnormal [facility] Glucose [Mass/Vol] 137 mg/dL High 74 - 100 mg/dL [facility] Interpretation and review of laboratory results Abnormal [facility] Hemoglobinon 10-13-2021 Hemoglobin (Bld) [Mass/Vol] 10.1 g/dL Low 11.9-15.1 [facility] Comment on above: Performed By: #### U RTPRT #### [facility] [address] [place] [address] Radiology Interventional Physician: Morro Hale MD Hemoglobin.gastroin testinal spec 1 Ql (Stl) 10.1 g/dL Low 11.9 - 15.1 g/dL [facility] Interpretation and review of laboratory results Abnormal [facility] Hemoglobin A1Con 10-13-2021 Glucose [Mass/Vol] 143 mg/dL [facility] [facility] Comment on above: Result Comment: The ADA and AACC recommend providing the estimated average glucose result to permit better patient understanding of their HBA1c result. Performed By: #### U RTPRT #### [facility] [address] [place] [address] Radiology Interventional Physician: Morro Hale MD HbA1c (Bld) [Mass fraction] 6.6 % High 4.0-6.0 [facility] Comment on above: Performed By: #### U RTPRT #### [facility] [address] [place] [address] Radiology Interventional Physician: Morro Hale MD Hemoglobin A1con 10-13-2021 Glucose [Mass/Vol] 143 mg/dL [facility] Comment on above: The ADA and AACC rec ommend providing the estimated average glucose result to permit better patient understanding of their HBA1c result. HbA1c (Bld) [Mass fraction] 6.6 % High 4.0 - 6.0 % [facility] Interpretation and review of laboratory results Abnormal [facility] Magnesiumon 10-13-2021 Magnesium [Mass/Vol] 4.7 mg/dL Critically high 1.6-2.6 [facility] Comment on above: Performed By: #### U RTPRT #### [facility] [address] [place] [address] Radiology Interventional Physician: Morro Hale MD Interpretation and review of laboratory results Abnormal [facility] Magnesium [Mass/Vol] 4.7 mg/dL Critically high 1.6 - 2.6 mg/dL [facility] Magnesium [Mass/Vol] 5.3 mg/dL Critically high 1.6-2.6 [facility] Comment on above: Performed By: #### M G #### [facility] [address] [place] [address] Dr. [place], [place] [id number] Radiology Interventional Physician: Morro Hale MD Interpretation and review of laboratory results Abnormal [facility] Magnesium [Mass/Vol] 5.3 mg/dL Critically high 1.6 - 2.6 mg/dL [facility] Magnesium [Mass/Vol] 4.1 mg/dL Critically high 1.6-2.6 [facility] Comment on above: Performed By: #### M G #### [facility] [address] [place] [address] Radiology Interventional Physician: Morro Hale MD APTTon 10-12-2021 aPTT Coag (Bld) [Time] 23.9 s Low 26.8-34.8 [facility] Comment on above: Result Comment: IV Heparin Therapy Range: 62.0-94.0 Performed By: #### U RTPRT #### [facility] [address] [place] [address] Radiology Interventional Physician: Morro Hale MD aPTT Coag (Bld) [Time] 23.9 s Low [facility] Comment on above: IV Heparin Therapy Range: 62.0-94.0 Interpretation and review of laboratory results Abnormal [facility] CBC with Auto Differentialon 10-12-2021 Absolute Eos # 0.11 [facility] th Absolute Immature Granulocyte 0.07 [facility] Absolute Lymph # 2.20 [facility] [place] [facility] (Bld) [#/Vol] 0.04 10*3/uL [facility] Basophils/100 WBC (Bld) 0 % 0 - 2 % [facility] Eosinophils/100 WBC (Bld) 1 % 1 - 4 % [facility] Hematocrit (Bld) [Volume fraction] 34.6 % Low 36.3 - 47.1 % [facility] Hemoglobin.gastroin testinal spec 1 Ql (Stl) 11.2 g/dL Low 11.9 - 15.1 g/dL [facility] Immature granulocytes/100 WBC (Bld) 1 % High 0 [facility] Interpretation and review of laboratory results Abnormal [facility] Lymphocytes/100 WBC (Bld) 23 % Low 24 - 43 % [facility] MCH (RBC) [Entitic mass] 27.1 pg 25.2 - 33.5 pg [facility] MCHC (RBC) [Mass/Vol] 32.4 g/dL 28.4 - 34.8 g/dL [facility] MCV (RBC) [Entitic vol] 83.6 fL 82.6 - 102.9 fL [facility] Monocytes/100 WBC (Bld) 6 % 3 - 12 % [facility] NRBC Automated 0.0 0.0 per 100 WBC [facility] Platelet distribution width (Bld) [Ratio] 14.6 % High 11.8 - 14.4 % [facility] Platelet mean volume (Bld) [Entitic vol] 10.6 fL 8.1 - 13.5 fL [facility] Platelets (Bld) [#/Vol] 224 10*3/uL [facility] RBC (Bld) [#/Vol] 4.14 10*6/uL 3.95 - 5.11 m/uL [facility] Segmented neutrophils/100 WBC (Bld) 69 % High 36 - 65 % [facility] Segs Absolute 6.68 [facility] h WBC (Bld) [#/Vol] 9.6 10*3/uL [facility] CBC with Diffon 10-12-2021 Abs. Basophil 0.04 k/uL Normal 0.00-0.20 [facility] Comment on above: Performed By: #### U RTPRT #### [facility] [address] [place] [address] [place] [address] Radiology Interventional Physician: Morro Hale MD Abs.Imm.Granulocyte 0.07 k/uL Normal 0.00-0.30 [facility] Comment on above: Performed By: #### U RTPRT #### [address] [place], [place] [id number] Radiology Interventional Physician: Morro Hale MD Abs.Neutrophil (Seg) 6.68 k/uL Normal 1.50-8.10 [facility] Comment on above: Performed By: #### U RTPRT #### [address] [place], [place] [id number] Radiology Interventional Physician: Morro Hale MD Basophils/100 WBC (Bld) 0 % Normal 0-2 [facility] Comment on above: Performed By: #### U RTPRT #### [address] [place], [place] [id number] Radiology Interventional Physician: Morro Hale MD Eosinophils (Bld) [#/Vol] 0.11 10*3/uL Normal 0.00-0.44 [facility] Comment on above: Performed By: #### U RTPRT #### [address] [place] [address] Radiology Interventional Physician: Morro Hale MD Eosinophils/100 WBC (Bld) 1 % Normal 1-4 [facility] Comment on above: Performed By: #### U RTPRT #### [facility] [address] [place] [address] Radiology Interventional Physician: Morro Hale MD Erythrocyte distribution width (RBC) [Ratio] 14.6 % High 11.8-14.4 [facility] Comment on above: Performed By: #### U RTPRT #### [facility] [address] [place] [address] Radiology Interventional Physician: Morro Hale MD Hematocrit (Bld) [Volume fraction] 34.6 % Low 36.3-47.1 [facility] Comment on above: Performed By: #### U RTPRT #### [address] [place] [address] Radiology Interventional Physician: Morro Hale MD Hemoglobin (Bld) [Mass/Vol] 11.2 g/dL Low 11.9-15.1 [facility] Comment on above: Performed By: #### U RTPRT #### [address] [place] [address] Radiology Interventional Physician: Morro Hale MD Immature granulocytes/100 WBC (Bld) 1 % High 0 [facility] Comment on above: Performed By: #### U RTPRT #### [facility] [address] [place] [address] Dr. [place], [place] [address] Radiology Interventional Physician: Morro Hale MD Lymphocytes (Bld) [#/Vol] 2.20 10*3/uL Normal 1.10-3.70 [facility] Comment on above: Performed By: #### U RTPRT #### [facility] [address] [place] [address] Dr[place] [id number] Radiology Interventional Physician: Morro Hale MD Lymphocytes/100 WBC (Bld) 23 % Low 24-43 [facility] Comment on above: Performed By: #### U RTPRT #### [facility] [address] [place], [place] [id number] Radiology Interventional Physician: Morro Hale MD MCH (RBC) [Entitic mass] 27.1 pg Normal 25.2-33.5 [facility] Comment on above: Performed By: #### U RTPRT #### [facility] [address] [place], [facility] Radiology Interventional Physician: Morro Hale MD MCHC (RBC) [Mass/Vol] 32.4 g/dL Normal 28.4-34.8 [facility] Comment on above: Performed By: #### U RTPRT #### [address] [place], [facility] Radiology Interventional Physician: Morro Hale MD MCV (RBC) [Entitic vol] 83.6 fL Normal 82.6-102.9 [facility] Comment on above: Performed By: #### U RTPRT #### [address] [place], [facility] Radiology Interventional Physician: Morro Hale MD Monocytes (Bld) [#/Vol] 0.53 10*3/uL Normal 0.10-1.20 [facility] Comment on above: Performed By: #### U RTPRT #### [address] [place], [facility] Radiology Interventional Physician: Morro Hale MD Monocytes/100 WBC (Bld) 6 % Normal 3-12 [facility] Comment on above: Performed By: #### U RTPRT #### [facility] [address] [place], [facility] Radiology Interventional Physician: Morro Hale MD Neutrophil (Seg) 69 % High 36-65 [facility] Comment on above: Performed By: #### U RTPRT #### [facility] [address] [place], [facility] Radiology Interventional Physician: Morro Hale MD NRBC Automated 0.0 per 100 WBC Normal 0.0 [facility] Comment on above: Performed By: #### U RTPRT #### [facility] [address] [place], [place] [id number] Radiology Interventional Physician: Morro Hale MD Platelet mean volume (Bld) [Entitic vol] 10.6 fL Normal 8.1-13.5 [facility] Comment on above: Performed By: #### U RTPRT #### [facility] [address] [place], [place] [id number] Radiology Interventional Physician: Morro Hael MD Platelets (Bld) [#/Vol] 224 10*3/uL Normal 138-453 [facility] Comment on above: Performed By: #### U RTPRT #### [facility] [address] [place] [address] Radiology Interventional Physician: Morro Hale MD RBC (Bld) [#/Vol] 4.14 10*6/uL Normal 3.95-5.11 [facility] Comment on above: Performed By: #### U RTPRT #### [facility] [address] [place], [place] [id number] Radiology Interventional Physician: Morro Hale MD WBC (Bld) [#/Vol] 9.6 10*3/uL Normal 3.5-11.3 [facility] Comment on above: Performed By: #### U RTPRT #### [facility] [address] [place], [place] [id number] Radiology Interventional Physician: Morro Hale MD Comp Metabolic Profon 2021 (cont.) Normal [facility] Comment on above: Result Comment: Aver age GFR for 30-39 years old: 107 mL/min/1.73sq m Chronic Kidney Disease: <60 mL/min/1.73sq m Kidney failure: <15 mL/min/1.73sq m eGFR calculated using average adult body mass. Additional eGFR calculator available at: http://www.Lloydgoff.com.[employer]/multiple_crcl_2012.htm Performed By: #### U RTPRT #### [facility] [address] [place] [address] Radiology Interventional Physician: Morro Hale MD Albumin [Mass/Vol] 3.3 g/dL Low 3.5-5.2 [facility] Comment on above: Performed By: #### U RTPRT #### [facility] [address] [place], [place] [address]6783 Radiology Interventional Physician: Morro Hale MD Albumin/Glob Ratio 1.2 Normal 1.0-2.5 [facility] Comment on above: Performed By: #### U RTPRT #### [facility] [address] [place] [address] Dr. [place], [place] [id number] Radiology Interventional Physician: Morro Hale MD Alkaline Phos 112 U/L High 35-104 [facility] Comment on above: Performed By: #### U RTPRT #### [facility] [address] [place], [place] [address]5083 Radiology Interventional Physician: Morro Hale MD ALT [Catalytic activity/Vol] 11 U/L Normal 5-33 [facility] Comment on above: Performed By: #### U RTPRT #### [facility] [address] [place] [address] Dr. [place], [place] 9141183 Radiology Interventional Physician: Morro Hale MD Anion gap [Moles/Vol] 11 mmol/L Normal 9-17 [facility] Comment on above: Performed By: #### U RTPRT #### [facility] [address] [place] [address] [place] [address] Radiology Interventional Physician: Morro Hale MD AST [Catalytic activity/Vol] 14 U/L Normal <32 [facility] Comment on above: Performed By: #### U RTPRT #### [facility] [address] [place], [place] [address]9983 Radiology Interventional Physician: Morro Hale MD Bilirubin [Mass/Vol] 0.27 mg/dL Low 0.3-1.2 [facility] Comment on above: Performed By: #### U RTPRT #### [facility] [address] [place], [place] [address]378783 Radiology Interventional Physician: Morro Hale MD BUN/CRE Ratio 19 Normal 9-20 [facility] Comment on above: Performed By: #### U RTPRT #### [facility] [address] [place], [place] [id number] Radiology Interventional Physician: Morro Hale MD Calcium [Mass/Vol] 9.2 mg/dL Normal 8.6-10.4 [facility] Comment on above: Performed By: #### U RTPRT #### [facility] [address] [place], [place] 4726083 Radiology Interventional Physician: Morro Hale MD Chloride [Moles/Vol] 98 mmol/L Normal 98-107 [facility] Comment on above: Performed By: #### U RTPRT #### [facility] [address] [place], [place] 3134583 Radiology Interventional Physician: Morro Hale MD CO2 [Moles/Vol] 21 mmol/L Normal 20-31 [facility] Comment on above: Performed By: #### U RTPRT #### [facility] [address] [place], [place] [address]973683 Radiology Interventional Physician: Morro Hale MD Creatinine [Mass/Vol] 0.58 mg/dL Normal 0.50-0.90 [facility] Comment on above: Performed By: #### U RTPRT #### [facility] [address] [place] [address] Radiology Interventional Physician: Morro Hale MD GFR, Amer >60 Normal >60 [facility] Comment on above: Performed By: #### U RTPRT #### [facility] [address] [place] [address] Radiology Interventional Physician: Morro Hale MD GFR,non Amer >60 Normal >60 [facility] Comment on above: Performed By: #### U RTPRT #### [facility] [address] [place], [place] [address]283183 Radiology Interventional Physician: Morro Hale MD Glucose [Mass/Vol] 120 mg/dL High 70-99 [facility] Comment on above: Performed By: #### U RTPRT #### [facility] [address] [place], [place] 0295183 Radiology Interventional Physician: Morro Hale MD Potassium [Moles/Vol] 3.8 mmol/L Normal 3.7-5.3 [facility] Comment on above: Performed By: #### U RTPRT #### [facility] [address] [place], [place] [address]1783 Radiology Interventional Physician: Morro Hale MD Protein [Mass/Vol] 6.1 g/dL Low 6.4-8.3 [facility] Comment on above: Performed By: #### U RTPRT #### [facility] [address] [place], [place] [id number] Radiology Interventional Physician: Morro Hale MD Sodium [Moles/Vol] 130 mmol/L Low 135-144 [facility] Comment on above: Performed By: #### U RTPRT #### [facility] [address] [place] [address] Radiology Interventional Physician: Morro Hale MD Staging: Normal [facility] Comment on above: Result Comment: Stag e 1: Some kidney damage normal GFR Stage 2: Mild kidney damage GFR 60-89 Stage 3: Moderate kidney damage GFR 30-59 Stage 4: Severe kidney damage GFR 15-29 Stage 5: Severe kidney damage GFR <15 ESRD - chronic treatment by dialysis or transplant Performed By: #### U RTPRT #### [facility] [address] [place] [address] Radiology Interventional Physician: Morro Hale MD Urea nitrogen [Mass/Vol] 11 mg/dL Normal 6-20 [facility] Comment on above: Performed By: #### U RTPRT #### [facility] [address] [place] [address] Radiology Interventional Physician: Morro Hale MD Comprehensive Metabolic Pane argelia 10-12-2021 Albumin [Mass/Vol] 3.3 g/dL Low 3.5 - 5.2 g/dL [facility] Albumin/Globulin [Mass ratio] 1.2 {ratio} [facility] ALP (Bld) [Catalytic activity/Vol] 112 U/L High 35 - 104 U/L [facility] ALT [Catalytic activity/Vol] 11 U/L 5 - 33 U/L [facility] Anion gap [Moles/Vol] 11 mmol/L 9 - 17 mmol/L [facility] AST [Catalytic activity/Vol] 14 U/L <32 [facility] Bilirubin [Mass/Vol] 0.27 mg/dL Low 0.3 - 1.2 mg/dL [facility] Calcium [Mass/Vol] 9.2 mg/dL 8.6 - 10. 4 mg/dL [facility] Chloride [Moles/Vol] 98 mmol/L 98 - 107 mmol/L [facility] CO2 [Moles/Vol] 21 mmol/L 20 - 31 mmol/L [facility] Creatinine [Mass/Vol] 0.58 mg/dL 0.50 - 0.90 mg/dL [facility] Free PSA/Total PSA [Mass fraction] 6.1 g/dL Low 6.4 - 8.3 g/dL [facility] GFR >60 >60 mL/min [facility] GFR Non- >60 >60 mL/min [facility] Glucose [Mass/Vol] 120 mg/dL High 70 - 99 mg/dL [facility] Interpretation and review of laboratory results Abnormal [facility] Potassium [Moles/Vol] 3.8 mmol/L 3.7 - 5.3 mmol/L [facility] Sodium [Moles/Vol] 130 mmol/L Low 135 - 144 mmol/L [facility] Urea nitrogen (BldV) [Mass/Vol] 11 mg/dL 6 - 20 mg/dL [facility] Urea nitrogen/Creatinine (Bld) [Mass ratio] 19 [facility] Drug Scr, Abuse, Uron 2021 Amphetamine(s),Ur Negative Normal NEG [facility] Comment on above: Performed By: #### D AU #### [facility] [address] [place], [place] [id number] Radiology Interventional Physician: Morro Hale MD Barbiturate(s),Ur Negative Normal NEG [facility] Comment on above: Performed By: #### D AU #### [address] [place] [address] Radiology Interventional Physician: Morro Hale MD Benzodiazepine(s) Negative Normal NEG [facility] Comment on above: Performed By: #### D AU #### [facility] [address] [place], [facility]83 Radiology Interventional Physician: Morro Hale MD Buprenorphrine, Ur Negative Normal [facility] Comment on above: Performed By: #### D AU #### [address] [place], [facility] Radiology Interventional Physician: Morro Hale MD Cannabinoid(s),Ur Negative Normal NEG [facility] Comment on above: Performed By: #### D AU #### [facility] [address] [place], [facility] Radiology Interventional Physician: Morro Hale MD Cocaine Metabolite Negative [facility] Comment on above: Performed By: #### D AU #### [facility] [address] [place] [address] Radiology Interventional Physician: Morro Hale MD Methadone Ql (U) Negative Normal NEG [facility] Comment on above: Performed By: #### D AU #### [facility] [address] [place], [place] [id number] Radiology Interventional Physician: Morro Hale MD Methamphetamine, Ur Negative Normal NEG [facility] Comment on above: Performed By: #### D AU #### [facility] [address] [place], [place] [id number] Radiology Interventional Physician: Morro Hale MD Opiate(s), Ur Negative Normal NEG [facility] Comment on above: Performed By: #### D AU #### [facility] [address] [place], [place] [address]83 Radiology Interventional Physician: Morro Hale MD Oxycodone, Urine Negative Normal NEG [facility] Comment on above: Performed By: #### D AU #### [facility] [address] [place] [address] Dr[place], [place] [id number] Radiology Interventional Physician: Morro Hale MD Phencyclidine, Ur Negative Normal NEG [facility] Comment on above: Performed By: #### D AU #### [facility] [address] [place] [address] Dr[place], [place] [id number] Radiology Interventional Physician: Morro Hale MD Propoxyphene,Urine Negative Normal NEG [facility] Comment on above: Performed By: #### D AU #### [facility] [address] [place] [address] Dr. [place], [place] 8583583 Radiology Interventional Physician: Morro Hale MD Tricyclic antidepressants Screen Ql (U) Negative Normal [facility] Comment on above: Result Comment: Drug screen results are to be used for medical purposes only. All positive results are unconfirmed. Testing for employment or legal uses should be sent to a reference laboratory for confirmation. Performed By: #### D AU #### [facility] [address] [place], [place] [id number] Radiology Interventional Physician: Morro Hale MD Fibrinogenon 10-12-2021 Fibrinogen 572 mg/dL High 179-518 [facility] Comment on above: Performed By: #### U RTPRT #### [facility] [address] [place] [address] Radiology Interventional Physician: Morro Hale MD Fibrinogen 572 mg/dL High 179 - 518 mg/dL [facility] Interpretation and review of laboratory results Abnormal [facility] Glucose, Whole Bloodon 10-12 Glucose [Mass/Vol] 229 mg/dL High 74 - 100 mg/dL [facility] Interpretation and review of laboratory results Abnormal [facility] Glucose [Mass/Vol] 216 mg/dL High 74 - 100 mg/dL [facility] Interpretation and review of laboratory results Abnormal [facility] Glucose [Mass/Vol] 129 mg/dL High 74 - 100 mg/dL [facility] Interpretation and review of laboratory results Abnormal [facility] - Chemistry and C hemistry - challengeon 10-12-2021 GFR/1.73 sq M.predicted MDRD (S/P/Bld) [Vol rate/Area] [facility] Comment on above: Average GFR for 30-3 9 years old: 107 mL/min/1.73sq m Chronic Kidney Disease: <60 mL/min/1.73sq m Kidney failure: <15 mL/min/1.73sq m eGFR calculated using average adult body mass. Additional eGFR calculator available at: http://www.Nimbit/multiple_crcl_2011.htm Stage 1: Some kidney damage normal GFR Stage 2: Mild kidney damage GFR 60-89 Stage 3: Moderate kidney damage GFR 30-59 Stage 4: Severe kidney damage GFR 15-29 Stage 5: Severe kidney damage GFR <15 ESRD - chronic treatment by dialysis or transplant Lactate Dehydrogenaseon LDH [Catalytic activity/Vol] 194 U/L Normal 135-214 [facility] Comment on above: Performed By: #### U RTPRT #### [facility] [address] [place] [address] Radiology Interventional Physician: Morro Hale MD LD 194 U/L 135 - 214 U/L [facility] Magnesiumon 10-12-2021 Interpretation and review of laboratory results Abnormal [facility] Magnesium [Mass/Vol] 4.1 mg/dL Critically high 1.6 - 2.6 mg/dL [facility] Magnesium [Mass/Vol] 4.0 mg/dL Critically high 1.6-2.6 [facility] Comment on above: Performed By: #### M G #### [facility] [address] [place] [address] [place] [address] Radiology Interventional Physician: Morro Hale MD Interpretation and review of laboratory results Abnormal [facility] Magnesium [Mass/Vol] 4.0 mg/dL Critically high 1.6 - 2.6 mg/dL [facility] No Panel Informationon 10-12 [facility] OPERATIVE REPORTon OPERATIVE REPORT [address] OPERATIVE REPORT PATIENT NAME: SOLANGE LCUAS : 1985 MED REC NO: [id number] ROOM: [facility] ACCOUNT NO: [id number] ADMIT DATE: 10/12/2021 PROVIDER: Kang Panda MD DATE OF PROCEDURE: 10/12/2021 ADDENDUM MACHINE ENGRAVER: ELINOR Chambers MD [id number] Doc#: [id number] Normal [facility] OPERATIVE REPORT [address] [id number] OPERATIVE REPORT PATIENT NAME: STAS LUCASCELAMY Silvestre : 1985 MED REC NO: [id number] ROOM: [id number] ACCOUNT NO: [id number] ADMIT DATE: 10/12/2021 PROVIDER: Kang Panda MD [...] was extended in a semilunar fashion with briquette machine operator's fingers. head was elevated. Fundal pressure [...] and cut. handed off to nursing and channel sales director who attended the delivery. Cord blood specimen [...] be correct. KANG PANDA MD [id number] Doc#: [id number] CC: Normal [facility] PTon 10-12-2021 INR Coag (PPP) [Relative time] 1.0 {INR} Normal [facility] Comment on above: Result Comment: Non-therapeutic Range: INR = 0.9-1.2 Therapeutic Range: Moderate Anticoagulant Intensity: INR = 2.0-3.0 High Anticoagulant Intensity: INR = 2.5-3.5 Performed By: #### U RTPRT #### [facility] [address] [place] [address] [place] [address] Radiology Interventional Physician: Morro Hale MD PT Coag (PPP) [Time] 13.1 s Normal 11.5-14.2 [facility] Comment on above: Performed By: #### U RTPRT #### [facility] [address] [place] [address] Radiology Interventional Physician: Morro Hale MD Protein / Creatinine Ratio, Urineon 10-12-2021 Creatinine, Ur 51.4 mg/dL 28.0 - 217.0 mg/dL [facility] Protein (U) [Mass/Vol] 5 mg/dL [facility] Comment on above: No normal range esta blished. Urine Total Protein Creatinine Ratio 0.10 [facility] Protein,Tot,[place] Uron 2021 Creatinine [Mass/Vol] 51.4 mg/dL Normal 28.0-217.0 [facility] Comment on above: Performed By: #### U RTPRT #### [facility] [address] [place] [id number] Radiology Interventional Physician: Morro Hale MD Tot Prot. Conc. 5 mg/dL Normal [facility] Comment on above: Result Comment: No n ormal range established. Performed By: #### U RTPRT #### [facility] [address] [place] [address] Dr. [place], [facility] Radiology Interventional Physician: Morro Hale MD TP/Cre Ratio 0.10 Normal 0.00-0.20 [facility] Comment on above: Performed By: #### U RTPRT #### [facility] [address] [place] [address] Dr. [place], [facility] Radiology Interventional Physician: Morro Hale MD Protime-INRon 10-12-2021 INR Coag (Bld) [Relative time] 1.0 {INR} [facility] Comment on above: Non-therapeutic Range: INR = 0.9-1.2 Therapeutic Range: Moderate Anticoagulant Intensity: INR = 2.0-3.0 High Anticoagulant Intensity: INR = 2.5-3.5 PT Coag (PPP) [Time] 13.1 s [facility] Surgical Pathologyon 022 Surgical Pathology (NOTE) [...] SURGICAL PATHOLOGY CONSULTATION Patient Name: SOLANGE LUCAS [facility] Rec: [id number] Path Number: [id number] [facility] [address] [place] [address]. [place], [place] [address] Normal [facility] Comment on above: Performed By: #### M G #### [facility] [address] [place] [address] [place] [address] Radiology Interventional Physician: Morro Hale MD TYPE AND SCREENon 10-12-2021 ABO/Rh Positive [facility] Arm Band Number [id number] [facility] Expiration Date 10/15/2021,2359 [facility] Type + Screenon 10-12-2021 Type + Screen Sample Expiration 10/15/2021,2359 Arm Band Number [id number] ABO/Rh(D) O POSITIVE Antibody Screen NEGATIVE [facility] Comment on above: Performed By: #### T YS #### [facility] [address] [place] [address] [place] [address] Radiology Interventional Physician: Morro Hale MD Uric Acidon 10-12-2021 Urate [Mass/Vol] 4.4 mg/dL Normal 2.4-5.7 [facility] Comment on above: Performed By: #### U RTPRT #### [facility] [address] [place] [address] [place] [address] Radiology Interventional Physician: Morro Hale MD Urate [Mass/Vol] 4.4 mg/dL 2.4 - 5.7 mg/dL [facility] Urinalysison 10-12-2021 Bilirubin Urine Negative NEGATIVE [facility] Color, UA Yellow Yellow [facility] Glucose, Ur Negative NEGATIVE [facility] Ketones Ql (U) Negative NEGATIVE [facility] Leukocyte esterase Test strip Ql (U) Negative NEGATIVE [facility] Nitrite, Urine Negative NEGATIVE [facility] pH, UA 6.0 [facility] Protein, UA Negative NEGATIVE [facility] Specific [place], UA 1.015 [facility] Turbidity UA Clear Clear [facility] Urine Hgb Negative NEGATIVE [facility] Urobilinogen, Urine Normal Normal [facility] Urinalysis, Routineon 2021 Bilirubin, SemiQt,Ur Negative Normal NEG [facility] Comment on above: Performed By: #### M G #### [facility] [address] [place] [address] Radiology Interventional Physician: Morro Hale MD Blood, Urine Negative Normal NEG [facility] Comment on above: Performed By: #### M G #### [facility] [address] [place], [facility] Radiology Interventional Physician: Morro Hale MD Clarity (U) Clear Normal CLEAR [facility] Comment on above: Performed By: #### M G #### [facility] [address] [place] [id number] Radiology Interventional Physician: Morro Hale MD Color (U) Yellow Normal YEL [facility] Comment on above: Performed By: #### M G #### [facility] [address] [place] [id number] Radiology Interventional Physician: Morro Hale MD Glucose Ql (U) Negative Normal NEG [facility] Comment on above: Performed By: #### M G #### [address] [place] [id number] Radiology Interventional Physician: Morro Hale MD Ketones Ql (U) Negative Normal NEG [facility] Comment on above: Performed By: #### M G #### [facility] [address] [place], [facility] Radiology Interventional Physician: Morro Hale MD Leukocyte esterase Test strip Ql (U) Negative Normal NEG [facility] Comment on above: Performed By: #### M G #### [address] [place] [address] Radiology Interventional Physician: Morro Hale MD Nitrite,Ur Negative Normal [facility] Comment on above: Performed By: #### M G #### [facility] [address] [place] [address] Radiology Interventional Physician: Morro Hale MD PH,Ur 6.0 Normal 5.0-9.0 [facility] Comment on above: Performed By: #### M G #### [facility] [address] [place], [place] [id number] Radiology Interventional Physician: Morro Hale MD Protein Ql (U) Negative Normal NEG [facility] Comment on above: Performed By: #### M G #### [facility] [address] [place] [address] Dr. [place], [place] [id number] Radiology Interventional Physician: Morro Hale MD Spec. [place],Ur 1.015 Normal 1.010-1.02 0 [facility] Comment on above: Performed By: #### M G #### [facility] [address] [place] [address] Dr. [place], [place] [id number] Radiology Interventional Physician: Morro Hale MD Urobilinogen,Ur Normal Normal NORM [facility] Comment on above: Performed By: #### M G #### [facility] [address] [place] [address] Dr. [place], [place] [id number] Radiology Interventional Physician: Morro Hale MD Urine Drug Screenon 10-13-19 22 Amphetamine Screen, Ur Negative NEGATIVE [facility] Barbiturate Screen, Ur Negative NEGATIVE [facility] Benzodiazepine Screen, Urine Negative NEGATIVE [facility] Buprenorphine Urine Negative NEGATIVE [facility] Cannabinoid Scrn, Ur Negative NEGATIVE [facility] Cocaine Metabolite, Urine Negative NEGATIVE [facility] Methadone Screen, Urine Negative NEGATIVE [facility] Methamphetamine, Urine Negative NEGATIVE [facility] Opiates, Urine Negative NEGATIVE [facility] Oxycodone Screen, Ur Negative NEGATIVE [facility] Phencyclidine, Urine Negative NEGATIVE [facility] Propoxyphene, Urine Negative NEGATIVE [facility] Tricyclic Antidepressants, Urine Negative NEGATIVE [facility] Comment on above: Drug screen results are to be used for medical purposes only. All positive results are unconfirmed. Testing for employment or legal uses should be sent to a reference laboratory for confirmation. [facility] GBS, External Resulton 09-26 GBS, External Result Positive [facility] Work Phone: Verified with Jacqueline Manuel RN [employer] Work Phone: [employer] Work Phone: US Biophysical Profileon US Biophysical Profile FINDINGS: Breathing Movements2 Gross Body Movements 2 Tone2 Qualitative amniotic fluid volume2 A single, viable intrauterine is present. Heart rate 128 bpm. Cervix is closed 4.0 cm. Cephalic presentation, posterior fundal placenta, Grade 2. IMPRESSION: Posterior fundal placenta Grade 2 and normal biophysical profile. Report reported and signed by Ruben Howell on 09/26/2021 1028 Normal [facility] [employer] Sales Consultant OB Limitedon 09-26-2021 OB Limited FINDINGS: Comparsion [...] by Ruben Howell on 09/26/2021 0933 Normal [facility] [employer] Sales Consultant OB Limitedon 09-18-2021 US OB Limited FINDINGS: [...] Ruben Howell on 09/19/2021 0823 Normal [facility] CBC with Auto Differentialon 09-16-2021 Absolute Eos # 0.12 [facility] th Absolute Immature Granulocyte 0.10 [facility] Absolute Lymph # 2.44 [facility]th Absolute [place] [facility] Basophils (Bld) [#/Vol] 0.04 10*3/uL [facility] [place] Basophils/100 WBC (Bld) 0 % 0 - 2 % [facility] Eosinophils/100 WBC (Bld) 1 % 1 - 4 % [facility] Hematocrit (Bld) [Volume fraction] 35.0 % Low 36.3 - 47.1 % [facility] Hemoglobin.gastroin testinal spec 1 Ql (Stl) 11.2 g/dL Low 11.9 - 15.1 g/dL [facility] Immature granulocytes/100 WBC (Bld) 1 % High 0 [facility] Interpretation and review of laboratory results Abnormal [facility] Lymphocytes/100 WBC (Bld) 21 % Low 24 - 43 % [facility] MCH (RBC) [Entitic mass] 27.5 pg 25.2 - 33.5 pg [facility] MCHC (RBC) [Mass/Vol] 32.0 g/dL 28.4 - 34.8 g/dL [facility] MCV (RBC) [Entitic vol] 86.0 fL 82.6 - 102.9 fL [facility] Monocytes/100 WBC (Bld) 5 % 3 - 12 % [facility] NRBC Automated 0.0 0.0 per 100 WBC [facility] Platelet distribution width (Bld) [Ratio] 14.2 % 11.8 - 14.4 % [facility] Platelet mean volume (Bld) [Entitic vol] 9.6 fL 8.1 - 13.5 fL [facility] Platelets (Bld) [#/Vol] 210 10*3/uL [facility] RBC (Bld) [#/Vol] 4.07 10*6/uL 3.95 - 5.11 m/uL [facility] Segmented neutrophils/100 WBC (Bld) 72 % High 36 - 65 % [facility] Segs Absolute 8.37 High [facility] WBC (Bld) [#/Vol] 11.7 10*3/uL High [facility] CBC with Diffon 09-16-2021 Abs. Basophil 0.04 k/uL Normal 0.00-0.20 [facility] Comment on above: Performed By: #### L D, CP, URI, CDP #### [facility] [address] [place] [address] Radiology Interventional Physician: Morro Hale MD Abs.Imm.Granulocyte 0.10 k/uL Normal 0.00-0.30 [facility] Comment on above: Performed By: #### L Carla, YUMIKO, URI, CDP #### [address] [place] [address] Radiology Interventional Physician: Morro Hale MD Abs.Neutrophil (Seg) 8.37 k/uL High 1.50-8.10 [facility] Comment on above: Performed By: #### L Carla, YUMIKO, URI, CDP #### [address] [place], [place] [address] Radiology Interventional Physician: Morro Hale MD Basophils/100 WBC (Bld) 0 % Normal 0-2 [facility] Comment on above: Performed By: #### L Carla, YUMIKO, URI, CDP #### [address] [place] [address] Radiology Interventional Physician: Morro Hale MD Eosinophils (Bld) [#/Vol] 0.12 10*3/uL Normal 0.00-0.44 [facility] Comment on above: Performed By: #### L Carla, YUMIKO, URI, CDP #### [address] [place], [place] [address] Radiology Interventional Physician: Morro Hale MD Eosinophils/100 WBC (Bld) 1 % Normal 1-4 [facility] Comment on above: Performed By: #### L Carla, YUMIKO, URI, CDP #### [address] [place], [place] [address] Radiology Interventional Physician: Morro Hale MD Erythrocyte distribution width (RBC) [Ratio] 14.2 % Normal 11.8-14.4 [facility] Comment on above: Performed By: #### L Carla, YUMIKO, URI, CDP #### [address] [place], [facility] Radiology Interventional Physician: Morro Hale MD Hematocrit (Bld) [Volume fraction] 35.0 % Low 36.3-47.1 [facility] Comment on above: Performed By: #### L Carla, YUMIKO, URI, CDP #### [facility] [address] [place] [address] Dr. [place], [place] [id number] Radiology Interventional Physician: Morro Hale MD Hemoglobin (Bld) [Mass/Vol] 11.2 g/dL Low 11.9-15.1 [facility] Comment on above: Performed By: #### L Carla, YUMIKO, URI, CDP #### [facility] [address] [place] [address] Dr. [place], [place] [id number] Radiology Interventional Physician: Morro Hale MD Immature granulocytes/100 WBC (Bld) 1 % High 0 [facility] Comment on above: Performed By: #### Elliot Aguirre CP, URI, CDP #### [address] [place], [place] [address]83 Radiology Interventional Physician: Morro Hale MD Lymphocytes (Bld) [#/Vol] 2.44 10*3/uL Normal 1.10-3.70 [facility] Comment on above: Performed By: #### Elliot Aguirre CP, URI, CDP #### [address] [place], [place] 8400483 Radiology Interventional Physician: Morro Hale MD Lymphocytes/100 WBC (Bld) 21 % Low 24-43 [facility] Comment on above: Performed By: #### Elliot Aguirre CP, URI, CDP #### [address] [place], [place] [id number] Radiology Interventional Physician: Morro Hale MD MCH (RBC) [Entitic mass] 27.5 pg Normal 25.2-33.5 [facility] Comment on above: Performed By: #### L YUMIKO Aguirre, URI, CDP #### [address] [place] [address] Radiology Interventional Physician: Morro Hale MD MCHC (RBC) [Mass/Vol] 32.0 g/dL Normal 28.4-34.8 [facility] Comment on above: Performed By: #### L Carla, CP, URI, CDP #### [facility] [address] [place], [place] [id number] Radiology Interventional Physician: Morro Hale MD MCV (RBC) [Entitic vol] 86.0 fL Normal 82.6-102.9 [facility] Comment on above: Performed By: #### L Carla, CP, URI, CDP #### [facility] [address] [place], [place] [id number] Radiology Interventional Physician: Morro Hale MD Monocytes (Bld) [#/Vol] 0.62 10*3/uL Normal 0.10-1.20 [facility] Comment on above: Performed By: #### L Carla, YUMIKO, URI, CDP #### [address] [place], [facility] Radiology Interventional Physician: Morro Hale MD Monocytes/100 WBC (Bld) 5 % Normal 3-12 [facility] Comment on above: Performed By: #### L Carla, YUMIKO, URI, CDP #### [address] [place], [place] [id number] Radiology Interventional Physician: Morro Hale MD Neutrophil (Seg) 72 % High 36-65 [facility] Comment on above: Performed By: #### L YUMIKO Aguirre, URI, CDP #### [facility] [address] [place] [address] Dr. [place], [place] [id number] Radiology Interventional Physician: Morro Hale MD NRBC Automated 0.0 per 100 WBC Normal 0.0 [facility] Comment on above: Performed By: #### L Carla, YUMIKO, URI, CDP #### [facility] [address] [place] [address] Radiology Interventional Physician: Morro Hale MD Platelet mean volume (Bld) [Entitic vol] 9.6 fL Normal 8.1-13.5 [facility] Comment on above: Performed By: #### L D, CP, URI, CDP #### [facility] [address] [place], [place] [id number] Radiology Interventional Physician: Morro Hale MD Platelets (Bld) [#/Vol] 210 10*3/uL Normal 138-453 [facility] Comment on above: Performed By: #### L D, CP, URI, CDP #### [facility] [address] [place], [place] [address]442783 Radiology Interventional Physician: Morro Hale MD RBC (Bld) [#/Vol] 4.07 10*6/uL Normal 3.95-5.11 [facility] Comment on above: Performed By: #### L D, CP, URI, CDP #### [address] [place], [place] [id number] Radiology Interventional Physician: Morro Hale MD WBC (Bld) [#/Vol] 11.7 10*3/uL High 3.5-11.3 [facility] Comment on above: Performed By: #### L Carla, YUMIKO, URI, CDP #### [address] [place] [address] Radiology Interventional Physician: Morro Hale MD Comp Metabolic Profon 2021 (cont.) Normal [facility] Comment on above: Result Comment: Aver age GFR for 30-39 years old: 107 mL/min/1.73sq m Chronic Kidney Disease: <60 mL/min/1.73sq m Kidney failure: <15 mL/min/1.73sq m eGFR calculated using average adult body mass. Additional eGFR calculator available at: http://www.Lloydgoff.com.com/multiple_crcl_2012.htm Performed By: #### L D, CP, URI, CDP #### [facility] [address] [place] [address] Radiology Interventional Physician: Morro Hale MD Albumin [Mass/Vol] 3.4 g/dL Low 3.5-5.2 [facility] Comment on above: Performed By: #### L Carla, YUMIKO, URI, CDP #### [facility] [address] [place], [place] [id number] Radiology Interventional Physician: Morro Hale MD Albumin/Glob Ratio 1.2 Normal 1.0-2.5 [facility] Comment on above: Performed By: #### L Carla, CP, URI, CDP #### [facility] [address] [place], [place] 4049883 Radiology Interventional Physician: Morro Hale MD Alkaline Phos 98 U/L Normal 35-104 [facility] Comment on above: Performed By: #### L Carla, YUMIKO, URI, CDP #### [address] [place], [place] [address]102283 Radiology Interventional Physician: Morro Hale MD ALT [Catalytic activity/Vol] 10 U/L Normal 5-33 [facility] Comment on above: Performed By: #### L Carla, YUMIKO, URI, CDP #### [address] [place], [place] [id number] Radiology Interventional Physician: Morro Hale MD Anion gap [Moles/Vol] 8 mmol/L Low 9-17 [facility] Comment on above: Performed By: #### L YUMIKO Aguirre, URI, CDP #### [facility] [address] [place] [address] Dr. [place], [place] [id number] Radiology Interventional Physician: Morro Hale MD AST [Catalytic activity/Vol] 13 U/L Normal <32 [facility] Comment on above: Performed By: #### L Carla, CP, URI, CDP #### [facility] [address] [place] [address] Dr. [place], [place] [id number] Radiology Interventional Physician: Morro Hale MD Bilirubin [Mass/Vol] 0.17 mg/dL Low 0.3-1.2 [facility] Comment on above: Performed By: #### L D, CP, URI, CDP #### [facility] [address] [place], [place] 2452483 Radiology Interventional Physician: Morro Hale MD BUN/CRE Ratio 21 High 9-20 [facility] Comment on above: Performed By: #### L D, CP, URI, CDP #### [facility] [address] [place], [place] [id number] Radiology Interventional Physician: Morro Hale MD Calcium [Mass/Vol] 9.1 mg/dL Normal 8.6-10.4 [facility] Comment on above: Performed By: #### L D, CP, URI, CDP #### [address] [place], [place] 5377983 Radiology Interventional Physician: Morro Hale MD Chloride [Moles/Vol] 103 mmol/L Normal 98-107 [facility] Comment on above: Performed By: #### L D, CP, URI, CDP #### [facility] [address] [place] [address] Dr. [place], [place] 0142883 Radiology Interventional Physician: Morro Hale MD CO2 [Moles/Vol] 24 mmol/L Normal 20-31 [facility] Comment on above: Performed By: #### L D, CP, URI, CDP #### [facility] [address] [place] [address] Dr. [place], [place] 3496383 Radiology Interventional Physician: Morro Hale MD Creatinine [Mass/Vol] 0.48 mg/dL Low 0.50-0.90 [facility] Comment on above: Performed By: #### L D, CP, URI, CDP #### [facility] [address] [place] [address] Radiology Interventional Physician: Morro Hale MD GFR, Amer >60 Normal >60 [facility] Comment on above: Performed By: #### L D, CP, URI, CDP #### [facility] [address] [place], [place] 2919383 Radiology Interventional Physician: Morro Hale MD GFR,non Amer >60 Normal >60 [facility] Comment on above: Performed By: #### L D, CP, URI, CDP #### [facility] [address] [place], [place] 1745283 Radiology Interventional Physician: Morro Hale MD Glucose [Mass/Vol] 162 mg/dL High 70-99 [facility] Comment on above: Performed By: #### L D, CP, URI, CDP #### [facility] [address] [place], [place] 5133983 Radiology Interventional Physician: Morro Hale MD Potassium [Moles/Vol] 3.9 mmol/L Normal 3.7-5.3 [facility] Comment on above: Performed By: #### L D, CP, URI, CDP #### [address] [place], [place] 3977883 Radiology Interventional Physician: Morro Hale MD Protein [Mass/Vol] 6.2 g/dL Low 6.4-8.3 [facility] Comment on above: Performed By: #### L D, CP, URI, CDP #### [address] [place], [place] [address]6483 Radiology Interventional Physician: Morro Hale MD Sodium [Moles/Vol] 135 mmol/L Normal 135-144 [facility] Comment on above: Performed By: #### L D, CP, URI, CDP #### [facility] [address] [place], [place] [id number] Radiology Interventional Physician: Morro Hale MD Staging: Normal [facility] Comment on above: Result Comment: Stag e 1: Some kidney damage normal GFR Stage 2: Mild kidney damage GFR 60-89 Stage 3: Moderate kidney damage GFR 30-59 Stage 4: Severe kidney damage GFR 15-29 Stage 5: Severe kidney damage GFR <15 ESRD - chronic treatment by dialysis or transplant Performed By: #### L Carla, YUMIKO, URI, CDP #### [facility] [address] [place] [address] Radiology Interventional Physician: Morro Hale MD Urea nitrogen [Mass/Vol] 10 mg/dL Normal 6-20 [facility] Comment on above: Performed By: #### L Carla, YUMIKO, URI, CDP #### [facility] [address] [place] [address] Radiology Interventional Physician: Morro Hale MD Comprehensive Metabolic Pane argelia 09-16-2021 Albumin [Mass/Vol] 3.4 g/dL Low 3.5 - 5.2 g/dL [facility] Albumin/Globulin [Mass ratio] 1.2 {ratio} [facility] ALP (Bld) [Catalytic activity/Vol] 98 U/L 35 - 104 U/L [facility] ALT [Catalytic activity/Vol] 10 U/L 5 - 33 U/L [facility] Anion gap [Moles/Vol] 8 mmol/L Low 9 - 17 mmol/L [facility] AST [Catalytic activity/Vol] 13 U/L <32 [facility] Bilirubin [Mass/Vol] 0.17 mg/dL Low 0.3 - 1.2 mg/dL [facility] Calcium [Mass/Vol] 9.1 mg/dL 8.6 - 10. 4 mg/dL [facility] Chloride [Moles/Vol] 103 mmol/L 98 - 107 mmol/L [facility] CO2 [Moles/Vol] 24 mmol/L 20 - 31 mmol/L [facility] Creatinine [Mass/Vol] 0.48 mg/dL Low 0.50 - 0.90 mg/dL [facility] Free PSA/Total PSA [Mass fraction] 6.2 g/dL Low 6.4 - 8.3 g/dL [facility] GFR >60 >60 mL/min [facility] GFR Non- >60 >60 mL/min [facility] Glucose [Mass/Vol] 162 mg/dL High 70 - 99 mg/dL [facility] Interpretation and review of laboratory results Abnormal [facility] Potassium [Moles/Vol] 3.9 mmol/L 3.7 - 5.3 mmol/L [facility] Sodium [Moles/Vol] 135 mmol/L 135 - 144 mmol/L [facility] Urea nitrogen (BldV) [Mass/Vol] 10 mg/dL 6 - 20 mg/dL [facility] Urea nitrogen/Creatinine (Bld) [Mass ratio] 21 High [facility] Laboratory - Chemistry and C hemistry - challengeon 09-16-2021 GFR/1.73 sq M.predicted MDRD (S/P/Bld) [Vol rate/Area] [facility] Comment on above: Average GFR for 30-3 9 years old: 107 mL/min/1.73sq m Chronic Kidney Disease: <60 mL/min/1.73sq m Kidney failure: <15 mL/min/1.73sq m eGFR calculated using average adult body mass. Additional eGFR calculator available at: http://www.Nimbit/multiple_crcl_2011.htm Stage 1: Some kidney damage normal GFR Stage 2: Mild kidney damage GFR 60-89 Stage 3: Moderate kidney damage GFR 30-59 Stage 4: Severe kidney damage GFR 15-29 Stage 5: Severe kidney damage GFR <15 ESRD - chronic treatment by dialysis or transplant Lactate Dehydrogenaseon 09-05 LDH [Catalytic activity/Vol] 174 U/L Normal 135-214 [facility] Comment on above: Performed By: #### L D, CP, URI, CDP #### [facility] [address] [place] [address] Radiology Interventional Physician: Morro Hale MD LD 174 U/L 135 - 214 U/L [facility] No Panel Informationon 09-16 [facility] Protein / Creatinine Ratio, Urineon 09-16-2021 Creatinine, Ur 93.8 mg/dL 28.0 - 217.0 mg/dL [facility] Protein (U) [Mass/Vol] 7 mg/dL [facility] Comment on above: No normal range esta blished. Urine Total Protein Creatinine Ratio 0.07 [facility] Protein,Tot,[place] [facility]ron 2021 Creatinine [Mass/Vol] 93.8 mg/dL Normal 28.0-217.0 [facility] Comment on above: Performed By: #### U RTPRT #### [facility] [address] [place], [place] [id number] Radiology Interventional Physician: Morro Hale MD Tot Prot. Conc. 7 mg/dL Normal [facility] Comment on above: Result Comment: No n ormal range established. Performed By: #### U RTPRT #### [facility] [address] [place], [place] [id number] Radiology Interventional Physician: Morro Hale MD TP/Cre Ratio 0.07 Normal 0.00-0.20 [facility] Comment on above: Performed By: #### U RTPRT #### [facility] [address] [place] [address] Dr. [place], [place] [id number] Radiology Interventional Physician: Morro Hale MD Uric Acidon 09-16-2021 Urate [Mass/Vol] 2.8 mg/dL Normal 2.4-5.7 [facility] Comment on above: Performed By: #### L D, CP, URI, CDP #### [facility] [address] [place] [address] Dr. [place], [place] [id number] Radiology Interventional Physician: Morro Hale MD Urate [Mass/Vol] 2.8 mg/dL 2.4 - 5.7 mg/dL [facility] US OB Limitedon 09-07-2021 US OB Limited FINDINGS: Single viable intrauterine . BEN 17.0 cm. Closed cervix 4.3 cm length. Cephalic presentation. IMPRESSION: 1. Single viable intrauterine , cephalic presentation. 2. BEN 17.0 cm. 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 pyogenes Org specific cx Ql (Throat) Negative [employer] Other Quick Strep [facility] [facility] [place] Other [facility] 04-19-2021 [facility] Normal [facility] Comment on above: Order Comment: @[facility] Test Name: INHERITEST CARRIER SCREEN [id number] CPT 64297;[id number] Result Comment: See report. Scanned copy available in EMR. PERFORMED BY: [address] [id number] PATHOLOGIST EVENTS DIRECTOR FILEMON VARGAS M.D. Performed By: #### M [facility] #### [place] [id number] [facility] ABO, External Resulton 03-22 ABO, External Result o [facility] Work Phone: C. Trachomatis, External Res ulton 03-22-2021 C. Trachomatis, External Result Negative [facility] Work Phone: HIV, External Resulton 03-22 HIV, External Result Non-Reactive [employer] Phone: Hepatitis B, External Result on 03-22-2021 Hep B, External Result Non-Reactive [employer] Phone: N. Gonorrhoeae, External Res ulton 03-22-2021 N. Gonorrhoeae, External Result Negative [employer] Phone: No Panel InformationOrdered By: Nerissa Lerma on 03-22-2021 [facility] No Panel Informationon 03-22 Verified with Jacqueline Manuel RN [employer] Phone: [facility] Work Phone: RPR, External Labon 03-22-20 21 RPR, External Result Non-Reactive [employer] Phone: Rh Factor, External ResultOr dered By: Nerissa Lerma on 03-22-2021 Rh Factor, External Result + [facility] Rubella Titer, External Resu lton 03-22-2021 Rubella Titer, External Result immune [employer] Phone: Coding Summaryon 04-23-2017 Coding Summary CODING DATE: 017 [facility] STATUS: Home PAYOR: [employer] [...] [facility] ? Urgent [address] [place] [address] clinical SummaryPERSON INFORMATIONName: SOLANGE BROWER Age: 32 Years Sex: FEMALEDOB: [birth year] MRN: Acct#:Visit Reason: Lower leg pain-swelling; LEFT LEG PAIN AND SWELLING Arrival:04/12/17 12:10:00 Discharge: 04/12/17 12:37:00LOS: 000 00:27 Check In: 04/12/17 12:10:00 Checkout: 04/12/17 12:37:00Address:[address] [place] [id number]: Edward McqueenPROAZEEM INFORMATIONProvider Role Assigned UnassignedBentley Amin PA-C ED PA 04/12/17 12:23:22VITALS INFORMATIONVital Sign Triage LatestTemperature TympanicTemperature Temporal ArteryPulse Rate 97 bpm 97 bpmO2 Sat 98 % 98 %Respiratory Rate 20 br/min 20 br/minBlood Pressure 120 mmHg/90 mmHg 120 mmHg/90 mmHgMEDICAL INFORMATIONMedications Given:Allergy Information:PHYSICIAN DOCUMENTATIONDISCHARGE INFORMATION:Discharge Disposition: HomeDischarge Location: HomePATIENT EDUCATION INFORMATIONInstructions: Muscle Strain, Kezv-ri-ObaeVijxfz-Up:With: Address: When:Rober Loya [address] [place] [address], [address] [place], [phone] Business (2) Within 3 to 5 days, only if neededWith: Address: When:Edward Mcqueen [facility] [place] [phone] Business (1) Within 3 to 5 daysDIAGNOSIS:Muscle strain of lower legComment: Normal [facility] ED Note - Physicianon 2016 ED Note - Physician Patient: NILTON BROWER : 32 years Sex: FEMALE : [birth year]Associated Diagnoses: Muscle strain of lower legAuthor: Bentley Amin PA-CHistory of Present IllnessThis is a 32 year old here today with concerns of feeling a pop in her calf 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 [...] mmHg SpO2 98 % O2 Flow 0 L/min.Wfldbvuwjioj08/06/17 12:15 EDT Height/Length Dosing 157.4 cm Weight [...] ice and elevate. OTC Motrin for pain, [facility] as needed for severe pain. Return with new, or worsening symptoms, or symptoms failing to improve as expected and the patient voiced their understanding. Questions answered. Follow-up with their family doctor as directed, return here sooner as needed. See ortho as needed.Impression and PlanDiagnosisMuscle strain of lower leg ([id number] S86.919A, Discharge, Medical)PlanCondition: Stable.Disposition: Discharged: Time 04/12/17 12:36:00, to home.Prescriptions: Launch prescriptionsPharmacy:[facility] 5 mg-325 mg oral tablet (Prescribe): 1 tab(s), PO, q6hr, for 3 day(s), PRN: for pain, 12 tab(s), 0 Refill(s).Patient was given the following educational materials: Muscle Strain, Obzf-gs-Nexn, Muscle Strain, Mthu-rr-Vaqj.Follow up with: Edward Mcqueen Within 3 to [...] 04/12/2017 12:51 EDT] Bentley Amin PA-C Normal [facility] ED Patient Summaryon 017 ED Patient Summary [facility] ? Urgent [address] [place] [id number] pATIENT DISCHARGE INSTRUCTIONSPatient InformationName: SOLANGE BROWER Age: 32 YearsDate of : [birth year]MRN: [id number] For Visit: Lower leg pain-swelling; LEFT LEG PAIN AND SWELLINGArrival Time: 04/12/17 12:10:00Phone: Primary Care Physician: Pat Mcqueen Physician: Bentley AminCComment:Patient EducationWith: Address: When:Rober ValadezShalini [address] [place] [address] Business (2) Within 3 to 5 days, only if neededWith: Address: When:Edward Mcqueen [address] [place] [address] Business (1) Within 3 to 5 daysMuscle [...] Reviewed: 01/21/2014Luz Maria Interactive Patient Education ?2016 [employer].Medication Information:The exam and treatment you received today in the [facility] Emergency Department were for an urgent problem and are not intended as complete care. It is important for you to follow up with a doctor, nurse practitioner, or physician?s insurance legal assistant for ongoing care. If your symptoms [...] of medications post discharge. Please inform your bead trimmer/provider of your visit and for further instruction on these medications. Any specific questions regarding your chronic medications and dosages should be discussed with your primary care physician(s) and/or pharmacist. New MedicationsPrinted Prescriptionsacetaminophen-h ydrocodone ([facility] 5 mg-325 mg oral tablet) 1 tab(s) Oral Every 6 hours as needed for pain for 3 Days. Refills: 0.Visit InformationVisit Diagnosis:Diagnoses This Visit Lower leg pain-swelling ([id number]) Muscle strain of lower leg (S86.919A)If you [...] [facility] ? Urgent [address] [place] [address] pATIENT DISCHARGE INSTRUCTIONSPatient InformationName: SOLANGE BROWER Age: 32 YearsDate of : [birth year]MRN: [id number] For Visit: Lower leg pain-swelling; LEFT LEG PAIN AND SWELLINGArrival Time: 04/12/17 12:10:00Phone: Primary Care Physician: Edward McqueenAttlyle Physician: Bentley Amin PA-CComment:Visit Diagnosis:Diagnoses This Visit Lower leg pain-swelling ([id number]) Muscle strain of lower leg (S86.919A)If you [...] sign any legal documentsWith: Address: When:Rober Loya [address] [place] [address] Business (2) Within 3 to 5 days, only if neededWith: Address: When:Edward Mcqueen [address] [place], [place] [phone] Business (1) Within 3 to 5 daysMedication Information:The exam and treatment you received today in the [facility] were for an urgent problem and are not intended as complete care. It is important for you to follow up with a doctor, nurse practitioner, or physician?s insurance legal assistant for ongoing care. If your symptoms [...] of medications post discharge. Please inform your bead trimmer/provider of your visit and for further instruction on these medications. Any specific questions regarding your chronic medications and dosages should be discussed with your primary care physician(s) and/or pharmacist. New MedicationsPrinted Prescriptionsacetaminophen-h ydrocodone ([facility] 5 mg-325 mg oral tablet) 1 tab(s) [...] Reviewed: 01/21/2014Luz Maria Interactive Patient Education ?2016 [employer]. Viruses or BacteriaWhat?s got you sick?Antibiotics only [...] for Disease Control and Prevention March 2014 [facility] Vital Signs Date Time Vital Sign Value Performing Clinician Facility 08-24-2024 09:020500 Body height 157.5 cm [facility] DO Work Phone: [facility] 08-24-2024 09:02-0500 Body mass index (BMI) [Ratio] 29.29 kg/m2 [facility] DO Work Phone: [facility] 08-24-2024 09:02-0500 Body weight 72.63 kg Betito Carola DO Work Phone: [facility] 08-24-2024 09:02-0500 Diastolic blood pressure 70 mm[Hg] Betito Carola DO Work Phone: [facility] 08-24-2024 09:02-0500 Systolic blood pressure 110 mm[Hg] Betito Carola DO Work Phone: [facility] 08-18-2024 13:27-0500 Body height 157.48 cm [facility] 08-18-2024 13:27-0500 Body mass index (BMI) [Ratio] 29.3 kg/m2 [facility] 08-18-2024 13:27-0500 Body weight 72.8 kg [facility] 08-18-2024 13:27-0500 Diastolic blood pressure 86 mm[Hg] [facility] 08-18-2024 13:27-0500 Heart rate 73 /min [facility] 08-18-2024 13:27-0500 Respiratory rate 12 /min [facility] 08-18-2024 13:27-0500 Systolic blood pressure 142 mm[Hg] [facility] 07-31-2024 10:52-0500 Body height 157.5 cm Crystal Calhoun MD Work Phone: [facility] 07-31-2024 10:52-0500 Body mass index (BMI) [Ratio] 29.07 kg/m2 Crystal Calhoun MD Work Phone: [facility] 07-31-2024 10:52-0500 Body weight 72.12 kg Crystal Calhoun MD Work Phone: [facility] 07-31-2024 10:52-0500 Diastolic blood pressure 82 mm[Hg] Crystal Calhoun MD Work Phone: [facility] 07-31-2024 10:52-0500 Heart rate 73 /min Crystal Calhoun MD Work Phone: [facility] 07-31-2024 10:52-0500 SaO2% (BldA) [Mass fraction] 100 % Crystal Calhoun MD Work Phone: [facility] 07-31-2024 10:52-0500 Systolic blood pressure 110 mm[Hg] Crystal Calhoun MD Work Phone: [facility] 07-16-2024 14:34-0500 Body mass index (BMI) [Ratio] 29.63 kg/m2 Dianne Rosaleso CNM Work Phone: [facility] 07-16-2024 14:34-0500 Body weight 73.48 kg Dianne Rosaleso CNM Work Phone: [facility] 07-16-2024 14:34-0500 Diastolic blood pressure 70 mm[Hg] Dianne Connieo CNM Work Phone: [facility] 07-16-2024 14:34-0500 Systolic blood pressure 112 mm[Hg] Dianne Floro CNM Work Phone: [facility] 03-23-2024 10:36-0400 Body height 157.5 cm Mick Yematthewick PA Work Phone: [facility] 03-23-2024 10:36-0400 Body mass index (BMI) [Ratio] 29.95 kg/m2 Mick Yenrick PA Work Phone: [facility] 03-23-2024 10:36-0400 Body weight 74.3 kg Mick Yenrick PA Work Phone: [facility] 03-23-2024 10:36-0400 Diastolic blood pressure 72 mm[Hg] Mick Yenrick PA Work Phone: [facility] 03-23-2024 10:36-0400 Heart rate 75 /min Mick Yenrick PA Work Phone: [facility] 03-23-2024 10:36-0400 SaO2% (BldA) [Mass fraction] 100 % Mick Yenrick PA Work Phone: [facility] 03-23-2024 10:36-0400 Systolic blood pressure 112 mm[Hg] Mick DE LA PAZ Work Phone: [facility] 12-23-2023 15:27-0400 Body height 157.48 cm [facility] 12-23-2023 15:27-0400 Body mass index (BMI) [Ratio] 30.2 kg/m2 [facility] 12-23-2023 15:27-0400 Body weight 74.84 kg [facility] 12-23-2023 15:27-0400 Diastolic blood pressure 78 mm[Hg] [facility] 12-23-2023 15:27-0400 Heart rate 67 /min [facility] 12-23-2023 15:27-0400 Respiratory rate 12 /min [facility] 12-23-2023 15:27-0400 Systolic blood pressure 122 mm[Hg] [facility] 10-14-2021 07:24-0400 Body temperature 97.39 [degF] Bryanna Pool MANAGER BODY - CNM Work Phone: [facility] 10-14-2021 07:24-0400 Diastolic blood pressure 75 mm[Hg] Bryanna Pool MANAGER BODY - CNM Work Phone: [facility] 10-14-2021 07:24-0400 Heart rate 67 /min Bryanna Pool MANAGER BODY - CNM Work Phone: [facility] 10-14-2021 07:24-0400 Respiratory rate 16 /min Bryanna Pool MANAGER BODY - CNM Work Phone: [facility] 10-14-2021 07:24-0400 Systolic blood pressure 119 mm[Hg] Bryanna Pool MANAGER BODY - CNM Work Phone: [facility] 10-13-2021 06:01-0400 SaO2% (BldA) [Mass fraction] 96 % Bryanna Pool MANAGER BODY - CNM Work Phone: [facility] 10-12-2021 10:22-0400 Body mass index (BMI) [Ratio] 52.13 kg/m2 Bryanna Pool MANAGER BODY - CNM Work Phone: [facility] 10-12-2021 10:22-0400 Body weight 129.28 kg Bryanna Pool MANAGER BODY - CNM Work Phone: [facility] 10-07-2021 14:56-0400 Diastolic blood pressure 64 mm[Hg] Dianne Floro MANAGER BODY - CNM Work Phone: [facility] 10-07-2021 14:56-0400 Heart rate 76 /min Dianne Rosaleso MANAGER BODY - CNM Work Phone: [facility] 10-07-2021 14:56-0400 Systolic blood pressure 123 mm[Hg] Dianne Floro MANAGER BODY - CNM Work Phone: [facility] 10-07-2021 14:23-0400 Respiratory rate 18 /min Dianne Rosaleso MANAGER BODY - CNM Work Phone: [facility] 09-30-2021 14:03-0400 Body height 157.5 cm Dianne Rosaleso MANAGER BODY - CNM Work Phone: [facility] 09-30-2021 14:03-0400 Body mass index (BMI) [Ratio] 51.58 kg/m2 Dianne Rosaleso MANAGER BODY - CNM Work Phone: [facility] 09-30-2021 14:03-0400 Body temperature 98.01 [degF] Dianne Floro MANAGER BODY - CNM Work Phone: [facility] 09-30-2021 14:03-0400 Body weight 127.91 kg Dianne Rosaleso MANAGER BODY - CNM Work Phone: [facility] 09-23-2021 15:35-0400 Body temperature 98.2 [degF] Dianne Connieo MANAGER BODY - CNM Work Phone: [facility] 09-23-2021 15:35-0400 Diastolic blood pressure 73 mm[Hg] Dianne Floro MANAGER BODY - CNM Work Phone: [facility] 09-23-2021 15:35-0400 Heart rate 96 /min Dianne Dang MANAGER BODY - CNM Work Phone: [facility] 09-23-2021 15:35-0400 Respiratory rate 18 /min Dianne Dang MANAGER BODY - CNM Work Phone: [facility] 09-23-2021 15:35-0400 Systolic blood pressure 118 mm[Hg] Dianne Dang MANAGER BODY - CNM Work Phone: [facility] 09-16-2021 15:59-0500 Diastolic blood pressure 72 mm[Hg] Dianne Dang MANAGER BODY - CNM Work Phone: [facility] 09-16-2021 15:59-0500 Heart rate 77 /min Dianne Dang MANAGER BODY - CNM Work Phone: [facility] 09-16-2021 15:59-0500 Systolic blood pressure 141 mm[Hg] Dianne Dang MANAGER BODY - CNM Work Phone: [facility] 09-16-2021 14:25-0500 Body height 157.5 cm Dianne Dang MANAGER BODY - CNM Work Phone: [facility] 09-16-2021 14:25-0500 Body mass index (BMI) [Ratio] 49.38 kg/m2 Dianne Dang MANAGER BODY - CNM Work Phone: [facility] 09-16-2021 14:25-0500 Body temperature 97.81 [degF] Dianne Dang MANAGER BODY - CNM Work Phone: [facility] 09-16-2021 14:25-0500 Body weight 122.47 kg Dianne Dang MANAGER BODY - CNM Work Phone: [facility] 09-16-2021 14:25-0500 Respiratory rate 16 /min Dianne Dang MANAGER BODY - CNM Work Phone: [facility] 09-09-2021 14:06-0500 Diastolic blood pressure 68 mm[Hg] Dianne Dang APRN - CNM Work Phone: [facility] 09-09-2021 14:06-0500 Heart rate 78 /min Dianne Dang MANAGER BODY - CNM Work Phone: [facility] 09-09-2021 14:06-0500 Systolic blood pressure 124 mm[Hg] Dianne Dang APRN - CNM Work Phone: [facility] 09-09-2021 14:04-0500 Body height 158.8 cm Dianne Dang APRN - CNM Work Phone: [facility] 09-09-2021 14:04-0500 Body mass index (BMI) [Ratio] 49.5 kg/m2 Dianne Dang MANAGER BODY - CNM Work Phone: [facility] 09-09-2021 14:04-0500 Body temperature 98.01 [degF] Dianne Dang MANAGER BODY - CNM Work Phone: [facility] 09-09-2021 14:04-0500 Body weight 124.74 kg Dianne Dang APRN - CNM Work Phone: [facility] 09-09-2021 14:04-0500 Respiratory rate 18 /min Dianne Dang MANAGER BODY - CNM Work Phone: [facility] 06-14-2021 15:00-0500 Body height 157.48 cm Margie Fish Other [employer] Other 06-14-2021 15:00-0500 Body mass index (BMI) [Ratio] 45.72 kg/m2 Margie Fish Other [employer] Other 06-14-2021 15:00-0500 Body temperature 98.3 [degF] Margie Fish Other [employer] Other 06-14-2021 15:00-0500 Body weight 113.4 kg Margie Fish Other [employer] Other 06-14-2021 15:00-0500 Respiratory rate 18 /min Margie Fish Other [employer] Other 06-14-2021 15:00-0500 SaO2% (BldA) [Mass fraction] 98 % Margie Fish Other [employer] Other Encounters Encounter Date Encounter Type Care Provider Facility Start: 08-27-2024 End: 08-27-2024 Office outpatient visit 25 minutes Blane Healy MD Work Phone: [facility] Comment on above: LOC (loss of conscio usness) (CMS-HCC) (Primary Dx) Start: 08-27-2024 End: 08-27-2024 ambulatory [facility] Start: 08-24-2024 End: 08-24-2024 [...] Not Available Start: 08-18-2024 End: 08-18-2024 ambulatory [facility] Work Phone: Start: 08-18-2024 End: 08-18-2024 Patient encounter procedure [facility] Work Phone: Start: 08-17-2024 Non-patient / Non-visit [facility] Work Phone: Start: 07-31-2024 End: 07-31-2024 Office outpatient visit 15 minutes Nelda Paniagua MD Work Phone: [facility] Comment on above: Palpitations (Primar y Dx); PFO (patent foramen ovale); S/P percutaneous patent foramen ovale closure; TIA (transient ischemic attack) Start: 07-30-2024 End: 07-30-2024 Telephone encounter Emilie Almazan 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 TANK 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 [facility] Start: 07-27-2024 End: 07-28-2024 [facility] Start: 07-16-2024 End: 07-16-2024 Office [...] FNR OB Start: 06-18-2024 ambulatory MICK JETT [facility] Start: 06-17-2024 End: 06-17-2024 Telephone encounter Mick DE LA PAZ Work Phone: [facility] Start: 05-26-2024 End: 06-12-2024 Telephone encounter Nohemy Kingsley RN [facility] Start: 04-27-2024 End: 04-27-2024 ambulatory MICK JETT [facility] Start: 03-23-2024 End: 03-23-2024 Office outpatient visit 25 minutes Mick DE LA PAZ [facility] Comment on above: PFO (patent foramen ovale) (Primary Dx); S/P percutaneous patent foramen ovale closure Start: 03-23-2024 End: 03-23-2024 ambulatory MICK JETT [facility] Start: 03-13-2024 End: 03-13-2024 ambulatory [facility] Start: 03-11-2024 End: 03-11-2024 Orders Only Trinidad Ludwig RN [facility] Comment on above: PFO (patent foramen ovale) (Primary Dx); History of delivery Start: 03-05-2024 End: 03-05-2024 Telephone encounter Mick DE LA PAZ Work Phone: [facility] Comment on above: PFO Closure Reminder Start: 02-17-2024 End: 02-17-2024 Phys/qhp telephone evaluation 11-20 min Dante Degroot MD [facility] Comment on above: TIA (transient ische kunal attack) (Primary Dx) Start: 02-17-2024 End: 02-17-2024 ambulatory [facility] Start: 02-04-2024 End: 02-04-2024 Chart abstracting Dante Degroot MD Work Phone: [facility] Start: 01-29-2024 End: 01-29-2024 Office outpatient visit 25 minutes Blane Healy MD Work Phone: [facility] Comment on above: TIA (transient ische kunal attack) (Primary Dx) Start: 01-29-2024 End: 01-29-2024 ambulatory ZONIA LUANN [facility] Start: 01-27-2024 End: 01-27-2024 ambulatory DIANNE DANG Not Available Start: 01-13-2024 End: 01-13-2024 ambulatory RAQUEL NATION [facility] Start: 12-29-2023 ambulatory EDWARD MCQUEEN [facility] Start: 12-26-2023 ambulatory MIKC JETT [facility] Start: 12-26-2023 End: 12-26-2023 Documentation procedure Mick DE LA PAZ Work Phone: [facility] Start: 12-26-2023 End: 12-27-2023 Telephone encounter Maki David RN [facility] Start: 12-23-2023 End: 12-23-2023 ambulatory [facility] Work Phone: Start: 12-23-2023 End: 12-23-2023 [facility] Work Phone: Start: 12-20-2023 End: 12-20-[address] [facility] Start: 12-18-2023 End: 12-18-2023 Telephone encounter Nohemy Kingsley RN [facility] Start: 12-18-2023 ambulatory EDWARD MCQUEEN [facility] Start: 12-18-2023 [facility]-patient [facility] Work [facility]: Start: 12-17-2023 End: 12-26-2023 Emergency department patient visit EDWARD Zofia MCQUEEN [facility] Start: 12-17-2023 Non-patient / Non-visit [facility] Work Phone: Start: 12-16-2023 End: 12-16-2023 ambulatory DIANNE DANG Not Available Start: 05-03-2023 End: 05-03-2023 ambulatory Edward Mcqueen Other [employer] Other Start: 05-03-2023 Office outpatient vi sit 15 minutes Edward Mcqueen [facility] Start: 04-23-2023 End: 04-23-2023 ambulatory Edward Richar Other [employer] Other Start: 04-23-2023 Telephone encounter Edward Mcqueen [facility] Start: 04-22-2023 End: 04-22-2023 ambulatory Edward Mcqueen Other [employer] Other Start: 04-22-2023 Telephone encounter Edward HA[facility]I [facility] Start: 04-09-2023 End: 04-09-2023 ambulatory Edward Mcqueen Other [employer] Other Start: 04-09-2023 Office outpatient vi sit 15 minutes Edward Mcqueen [facility] Start: 09-20-2022 End: 09-20-2022 ambulatory Edward Mcqueen Other [employer] Other Start: 09-20-2022 Telephone encounter Edward HAJI [facility] Start: 08-29-2022 End: 08-29-2022 ambulatory Edward Mcqueen Other [employer] Other Start: 08-29-2022 Office outpatient vi sit 15 minutes Edward Mcqueen [facility] Start: 08-17-2022 Telephone encounter Edward HAJI [facility] Start: 08-17-2022 End: 08-18-[address] EDWARD MCQUEEN Facility:[facility]1 Start: 08-17-2022 End: 08-18-2022 ambulatory BERTO ZIMMERMAN Facility:[facility]1 Start: 10-12-2021 End: 10-14-2021 Evaluation and management of inpatient [employer] [facility] Start: 10-12-2021 End: 10-14-2021 Evaluation and management of inpatient Bryanna E Altamont ESTHER ELINOR Work Phone: [facility] Labor and Delivery Comment on above: Born by sec tion (Primary Dx) Start: 10-07-2021 End: 10-07-2021 ambulatory [facility] Start: 10-07-2021 End: 10-07-2021 Subsequent hospital visit by physician Dianne Clark CNM Work Phone: [facility] Labor and Delivery Comment on above: Diet controlled gest ational diabetes mellitus (GDM) in third trimester Start: 09-30-2021 End: 09-30-2021 ambulatory [facility] Start: 09-30-2021 End: 09-30-2021 Subsequent [...] Dianne Dang APRN - ELINOR Work Phone: [facility] Comment on above: Diet controlled gest ational diabetes mellitus (GDM) in third trimester Start: 09-02-2021 End: 09-02-2021 ambulatory [facility] Start: 06-14-2021 (URG) Urgent Care Visit Margie aguirre [facility] Start: 06-14-2021 End: 06-14-2021 ambulatory Margie Fish Other [employer] Other Start: 04-12-2017 End: 04-12-2017 Ambulatory Bentley Amin Facility:[facility] Procedures Date Procedure Procedure Detail Performing Clinician Start: 07-31-2024 Ecg routine ecg w/le ast 12 lds w/i&r Crystal Calhoun MD Work Phone: Start: 02-17-2024 Follow-up visit Follow-up Dante DEGROOT Start: 10-14-2021 GLUCOSE, WHOLE BLOOD Va tyler Rosaleso MANAGER BODY - CNM Work Phone: Start: 10-13-2021 GLUCOSE, WHOLE BLOOD Va tyler Rosaleso MANAGER BODY - CNM Work Phone: Start: 10-13-2021 GLUCOSE, WHOLE BLOOD Va tyler Rosaleso MANAGER BODY - CNM Work Phone: Start: 10-13-2021 GLUCOSE, WHOLE BLOOD Va tyler Rosaleso MANAGER BODY - CNM Work Phone: Start: 10-13-2021 Assay of magnesium Mendy karo Connieo MANAGER BODY - CNM Work Phone: Start: 10-13-2021 Blood count hemoglobin Dianne Connieo MANAGER BODY - CNM Work Phone: Start: 10-13-2021 GLUCOSE, WHOLE BLOOD Va tyler Rosaleso MANAGER BODY - CNM Work Phone: Start: 10-13-2021 Assay of magnesium Mendy karo Connieo MANAGER BODY - CNM Work Phone: Start: 10-12-2021 GLUCOSE, WHOLE BLOOD Va tyler Rosaleso MANAGER BODY - CNM Work Phone: Start: 10-12-2021 GLUCOSE, WHOLE BLOOD Va tyler Rosaleso MANAGER BODY - CNM Work Phone: Start: 10-12-2021 GLUCOSE, WHOLE BLOOD Va tyler Rosaleso MANAGER BODY - CNM Work Phone: Start: 10-12-2021 Antibody screen Kathlee n Pool MANAGER BODY - CNM Work Phone: Start: 10-12-2021 Blood typing serolog ic abo Bryanna E Pool MANAGER BODY - CNM Work Phone: Start: 10-12-2021 End: 10-12-2021 Comprehensive metabolic panel Bryanna E Pool MANAGER BODY - CNM Work Phone: Start: 10-12-2021 Drug screen class list a Bryanna Barth [facility] Work Phone: Start: 10-12-2021 Urnls dip stick/tabl et rgnt auto w/o microscopy Bryanna Barth [facility] Work Phone: Start: 10-07-2021 nonstress test Va tyler Dang [facility] Work Phone: Start: 09-26-2021 GBS, EXTERNAL RESULT Pr andrea Purvis MD Start: 09-16-2021 End: 09-16-2021 Comprehensive metabolic panel Ai Gonzales Burnham [facility] Work Phone: Start: 09-16-2021 nonstress test Va tyler Dang [facility] Work Phone: Start: 03-22-2021 ABO, EXTERNAL RESULT Pr debical Yaniv SIMMONS Start: 03-22-2021 C. TRACHOMATIS, EXTE RNAL RESULT Historical Provider Start: 03-22-2021 HEPATITIS B, EXTERNA L RESULT Historical Provider Start: 03-22-2021 HIV, EXTERNAL RESULT Pr storical Provider Start: 03-22-2021 N. GONORRHOEAE, EXTE RNAL RESULT Historical Provider Start: 03-22-2021 RH FACTOR, EXTERNAL RESULT Historical Provider Start: 03-22-2021 RPR, EXTERNAL RESULT Pr storical Provider Start: 03-22-2021 RUBELLA TITER, EXTER [...] Td Vaccines (7 - Td or Tdap) [facility] Start: 07-30-2028 DTaP/Tdap/Td vaccine (7 - Td or Tdap) DTaP/Tdap/Td vaccine (7 - Td or Tdap) [facility] Start: 07-31-2025 Adult BMI Screening Adult BMI Screening [facility] Start: 07-31-2025 Tobacco Screening Tobacco Screening [facility] Start: 03-23-2025 Adult BMI Screening Adult BMI Screening [facility] Start: 03-23-2025 Tobacco Screening Tobacco Screening [facility] Start: 02-16-2025 Tobacco Screening Tobacco Screening [facility] Start: 01-12-2025 Tobacco Screening Tobacco Screening [facility] Start: 10-05-2024 End: 10-05-2024 Patient encounter procedure 10/05/2024 9:30 AM EDT Procedure Visit [facility] [address] [place] [address] Betito Srivastava DO [address] [place] [address] [facility] Start: 08-27-2024 End: 08-27-2024 Telemedicine consultation with patient 08/27/2024 1:00 PM EST Telemedicine [facility] [address] [place] [phone] Blane Healy MD [address] [place] [address], [address], [address], [address] [place] [address] [facility] Start: 08-24-2024 End: 08-24-2025 DHEA DHEA Lab Routine Irregular menstrual cycle Menorrhagia with irregular cycle Expected: 08/24/2024 (Approximate), Expires: 08/24/2025 [facility] Healthcare Comment on above: Expected: 08/24/2024 (Approximate), Expi res: 08/24/2025 Start: 08-24-2024 End: 08-24-2025 US Pelvis US Pelvis w/ TV Imaging Routine Irregular menstrual cycle Menorrhagia with irregular cycle Expected: 08/24/2024, Expires: 08/24/2025 [facility] Healthcare Comment on above: Expected: 08/24/2024, Expires: Start: 08-24-2024 End: 08-24-2024 Patient encounter procedure 08/24/2024 9:00 AM EST Office Visit [facility] [address] [facility] [place] [phone] Betito Srivastava DO [address] [facility] [place] [address] Arrived [facility] Comment on above: Arrived Start: 07-31-2024 End: 07-31-2024 Patient encounter procedure 07/31/2024 11:15 AM EST Office Visit [facility] [address] [place] [address] Nelda Paniagua MD [address] [place] [address] Crystal Calhoun MD [address] [place] [address] [facility] Start: 07-20-2024 End: 07-20-2024 Patient encounter procedure 07/20/2024 11:30 AM EST Office Visit [facility] [address] [place] [address] Nelda Paniagua MD [address] [place] [address] [facility] Start: 07-16-2024 End: 07-16-2024 Patient encounter procedure 07/16/2024 2:30 PM EST Office Visit [facility] [address] [place] [phone] Dianne Dang CNM [address] [place] [address] Arrived [facility] Comment on above: Arrived Start: 06-17-2024 End: 06-17-2025 Wireless Telemetry (In Office) Wireless Telemetry (In Office) Cardiac Services Routine Palpitations Expected: 06/17/2024, Expires: 06/17/2025 [facility] Work Phone: Comment on above: Expected: 06/17/2024, Expires: Start: 04-27-2024 End: 04-27-2024 Patient encounter procedure 04/27/2024 10:30 AM EDT Appointment [facility] [address] [place] [phone] [facility] Start: 04-22-2024 End: 03-23-2025 Echo complete W/O contrast Echo complete W/O contrast Echocardiography Routine PFO (patent foramen ovale) S/P percutaneous patent foramen ovale closure Expected: 04/22/2024 (Approximate), Expires: 03/23/2025 [facility] Work Phone: Comment on above: Expected: 04/22/2024 (Approximate), Expi res: 03/23/2025 Start: 03-23-2024 End: 03-23-2024 Patient encounter procedure 03/23/2024 10:45 AM EDT Office Visit [facility] [address] [place] [phone] [place] [address] [address] [facility] Start: 03-13-2024 End: 03-13-2024 Admission to same day surgery center 03/13/2024 7:30 AM EDT - 03/13/2024 9:30 AM EDT Surgery [facility] - Cardiac Cath [address] [place] [phone] Dante Degroot MD [address] [place] [address] Patent foramen ovale closure with cath/patch/ICE [53064 (CPT )] [facility] - [facility]iac Cath Comment on above: Patent foramen ovale closure with cath/p atch/ICE [04395 (CPT )] Start: 03-13-2024 Subsequent hospital visit by physician 03/13/2024 7:30 AM EDT Hospital Encounter [facility] Cardiac Cath [address] [place] [address] Dante Degroot MD [address] [place] [address] PFO (patent foramen ovale) [facility] Card[facility] Cath Comment on above: PFO (patent foramen ovale) Start: 03-12-2024 End: 03-12-2024 Admission to same day surgery center 03/12/2024 2:30 PM EDT - 03/12/2024 4:30 PM EDT Surgery [facility] Cardiac Cath [address] [place] [address] Dante Degroot MD [address] [place] [address] Patent foramen ovale closure with cath/patch/ICE [11432 (CPT )] [facility] Card[facility] Cath Comment on above: Patent foramen ovale closure with cath/p atch/ICE [49368 (CPT )] Start: 03-12-2024 Subsequent hospital visit by physician 03/12/2024 2:30 PM EDT Hospital Encounter [facility] Cardiac Cath [address] [place] [address] Dante Degroot MD [address] [place] [address] PFO (patent foramen ovale) [facility] Cath Comment on above: PFO (patent foramen ovale) Start: 03-08-2024 COVID-19 Vaccine () COVID-19 Vaccine () [facility] Start: 03-08-2024 COVID-19 Vaccine ( season) COVID-19 Vaccine ( season) [facility] Start: 03-08-2024 Influenza vaccination [facility] Start: 02-17-2024 End: 02-17-2024 Patient encounter procedure 02/17/2024 11:00 AM EDT Office Visit [facility] [address] [place] [address] [place] [phone] Dante Degroot MD [address] [place], [place] [phone] [facility] Start: 01-29-2024 End: 01-29-2024 Telemedicine consultation with patient 01/29/2024 3:00 PM EDT Telemedicine [facility] [address] [place] [phone] Blane Healy MD [address] [place] [address], [address], [address], [address] [place] [address] [facility] Start: 01-13-2024 End: 01-13-2024 Patient encounter procedure 01/13/2024 8:45 AM EDT Appointment [facility] - Cardiac Cath [address] [facility] [place] [phone] Raquel Nation MD [address] [place] [phone] [facility] - Cardiac Cath Start: 12-26-2023 End: 12-25-2024 Wireless Telemetry (In Office) Wireless Telemetry (In Office) Cardiac Services Routine PFO (patent foramen ovale) TIA (transient ischemic attack) Palpitations Expected: 12/26/2023, Expires: 12/25/2024 [facility] Work Phone: Comment on above: Expected: 12/26/2023, Expires: Start: 03-08-2023 COVID-19 Vaccine ( season) COVID-19 [facility]ine ( season) [facility] Start: 10-12-2022 Creatinine measurement Creatinine monitoring [facility] Start: 10-12-2022 Potassium monitoring Potassium monitoring [facility] Start: 09-28-2022 Adult BMI Screening Adult BMI Screening [facility] [employer] [facility] Start: 03-08-2022 Influenza vaccination Flu vaccine (Season Ended) [facility] Start: 01-11-2022 Hemoglobin A1c measurement A1C test (Diabetic or Prediabetic) [facility] Start: 10-21-2021 End: 10-21-2021 Patient encounter procedure 10/21/2021 Appointment [facility] Start: 10-18-2021 Subsequent hospital visit by physician 10/18/2021 Hospital Encounter Obstetrics and Gynecology Dianne Dang, ESTHER - CNM [address] [place] [address] [facility] Labor [facility] Delivery Start: 10-17-2021 End: [...] Start: 2021 Diabetes screen Diabetes screen [facility] Start: 03-08-2021 Influenza vaccination Flu vaccine (#1) [facility] Start: 03-13-2020 Screening for malignant neoplasm of cervix Pap Smear [facility] [employer] [facility] Start: 2016 Screening for malignant neoplasm of cervix [facility] Start: 2007 Screening for malignant neoplasm of cervix Pap smear [facility] Start: 2004 Adult BMI Follow Up Plan Adult BMI Follow Up Plan [facility] [employer] [facility] Start: 2001 HIV screening HIV screen [facility] Start: 1998 Depression Screen Depression Screen [facility] Start: 1998 Depression Screening Depression Screening [facility] Start: 1998 Tobacco Screening Tobacco Screening [facility] Start: 1991 COVID-19 Vaccine (1) COVID-19 Vaccine (1) [facility] Start: 1987 Varicella vaccine (1 of 2 - 2-dose childhood series) Varicella vaccine (1 of 2 - 2-dose childhood series) [facility] Start: 1986 Hepatitis C screening Hepatitis C screen [facility] Start: 1986 Tobacco Counseling Tobacco Counseling [facility] CBC W Auto Differential panel - Blood CBC and differential Lab Routine Irregular menstrual cycle Menorrhagia with irregular cycle Ordered: 08/24/2024 [facility] Comment on above: Ordered: 08/24/2024 DHEA-sulfate DHEA-sulfate Lab Routine Irregular menstrual cycle Menorrhagia with irregular cycle Ordered: 08/24/2024 [facility] Comment on above: Ordered: 08/24/2024 End: 08-27-2025 EEG EEG Neurology Routine LOC (loss of consciousness) ([facility] 1 Occurrences starting 08/27/2024 until 08/27/2025 [employer] Phone: Comment on above: 1 Occurrences starting 08/27/2024 until 08/27/2025 End: 09-09-2021 nonstress test [employer] Phone: Comment on above: 1 Occurrences starting 09/09/2021 until 09/09/2021 As Needed for 8 Occu rrences starting 09/09/2021 End: 09-23-2021 nonstress test nonstress test OB Routine Diet controlled gestational diabetes mellitus (GDM) in third trimester 1 Occurrences starting 09/23/2021 until 09/23/2021 [employer] Phone: Comment on above: 1 Occurrences starting 09/23/2021 until 09/23/2021 Follicle stimulating hormone Follicle stimulating hormone Lab Routine Irregular menstrual cycle Menorrhagia with irregular cycle Ordered: 08/24/2024 [employer] Comment on above: Ordered: 08/24/2024 End: 10-13-2021 Glucose [Mass/volume] in Serum or Plasma Glucose, Random Lab Timed Tomorrow AM for 1 Occurrences starting 10/13/2021 until 10/13/2021 [employer] Phone: Comment on above: Tomorrow AM for 1 Occurrences starting 0 10/13/2021 until 10/13/2021 Glucose [Mass/volume ] in Serum or Plasma [employer] Phone: Comment on above: 4X Daily (AC & HS) until discontinued st arting 10/12/2021 As Needed until disc ontinued starting 10/12/2021 hCG, quantitative, hCG, quantitative, Lab Routine Irregular menstrual cycle Menorrhagia with irregular cycle Ordered: 08/24/2024 [employer] Work Phone: Comment on above: Ordered: 08/24/2024 Hemoglobin A1c/Hemoglobin.total in Blood Hemoglobin A1c Lab Routine Irregular menstrual cycle Menorrhagia with irregular cycle Ordered: 08/24/2024 [employer] Comment on above: Ordered: 08/24/2024 Holter monitor study [facility] Luteinizing hormone Luteinizing hormone Lab Routine Irregular menstrual cycle Menorrhagia with irregular cycle Ordered: 08/24/2024 [employer] Comment on above: Ordered: 08/24/2024 End: 10-19-2021 Magnesium [Mass/volume] in Serum or Plasma Magnesium Lab Routine Every 6 Hours (Lab) for 7 Days starting 10/12/2021 until 10/19/2021, 3 completed [employer] Phone: Comment on above: Every 6 Hours (Lab) for 7 Days starting 10/12/2021 until 10/19/2021, 3 completed Nonrebreather mask oxygen Nonrebreather mask oxygen Respiratory Care Routine As directed - RT (PRN) until discontinued starting 10/12/2021 [employer] Phone: Comment on above: As directed - RT (PRN) until discontinue d starting 10/12/2021 Oxygen therapy [Minimum Data Set] Initiate Oxygen Therapy Protocol Respiratory Care Routine As Needed until discontinued starting 10/12/2021 [employer] Phone: Comment on above: As Needed until discontinued starting Spirometry panel Incentive itz metry Respiratory Care Routine Every 2hr while awake until discontinued starting 10/12/2021 [employer] Phone: Comment on above: Every 2hr while awake until discontinued starting 10/12/2021 End: 10-12-2021 Surgical Pathology Surgical Pathology Lab Routine One Time for 1 Occurrences starting 10/12/2021 until 10/12/2021 [employer] Phone: Comment on above: One Time for 1 Occurrences starting 01/2022 until 10/12/2021 End: 10-12-2021 SURGICAL PATHOLOGY REPORT SURGICAL PATHOLOGY REPORT Lab Routine Once for 1 Occurrences starting 10/12/2021 until 10/12/2021 [employer] Phone: Comment on above: Once for 1 Occurrences starting 10/13/19 until 10/12/2021 End: 10-13-2021 SURGICAL PATHOLOGY REPORT SURGICAL PATHOLOGY REPORT Lab Routine Once for 1 Occurrences starting 10/13/2021 until 10/13/2021 [employer] Phone: Comment on above: Once for 1 Occurrences starting 10/14/19 until 10/13/2021 Thyrotropin [Units/volume] in Serum or Plasma TSH Lab Routine Irregular menstrual cycle Menorrhagia with irregular cycle Ordered: 08/24/2024 [facility] [employer] Comment on above: Ordered: 08/24/2024 Thyroxine (T4) free [Mass/volume] in Serum or Plasma T4, free Lab Routine Irregular menstrual cycle Menorrhagia with irregular cycle Ordered: 08/24/2024 [facility] Comment on above: Ordered: 08/24/2024 [facility] Immunizations Immunization Date Immunization Notes Care Provider Campos beasley 10-12-2021 diphtheria, tetanus toxoids and acellular pertussis vaccine, unspecified formulation Bryanna Barth APRN - CNM Work Phone: [employer] Phone: 10-12-2021 measles, mumps and rubella virus vaccine Bryanna Barth MANAGER BODY [facility] Work Phone: [facility] Work Phone: 07-30-2018 tetanus toxoid, redu sana diphtheria toxoid, and acellular pertussis vaccine, adsorbed Nohemy Kingsley RN [facility] 03-26-2013 influenza virus vaccine, unspecified formulation Nohemy Kingsley RN [facility] Payers Date Payer Category Payer [facility] BC[facility] [id number] 2023 [facility] - Other [employer] [id number] 2023 Unknown [id number] 1.13.424. [id number] 2023 Unknown [id number] 2020 Private Health Insurance [facility] [id number] 2020-Present [phone] [address] [place] [address] [id number]. 2.7.3.775135.315 2014 Unknown [id number] 1986 Unknown [id number] 2.16.840.1.899728.3.579. 2.173 1986 Unknown [id number] 2.16.840.1.797105.3.579. 2.173 1986 Unknown [id number] 2.16.840.1.797547.3.579. 2.173 1986 Unknown [id number] 2.16.840.1.386472.3.579. 2.173 1986 Unknown [id number] 2.16.840.1.598337.3.579. 2.173 1986 Unknown [id number] 2.16.840.1.546861.3.579. 2.173 1986 Unknown [id number] 2.16.840.1.488228.3.579. 2.173 1986 Unknown [id number] 2.16.840.1.909936.3.579. 2.593 1986 Unknown [id number] 2.16.840.1.460986.3.579. 2.593 1986 Unknown [id number] 2.16.840.1.108429.3.579. 2.1286 1986 Unknown [id number] 2.16.840.1.613867.3.579. 2.1286 1986 Unknown [id number] 2.16.840.1.009089.3.579. 2.1286 1986 Unknown [id number] 2.16.840.1.842167.3.579. 2.1286 1986 Unknown [id number] 2.16.840.1.612900.3.579. 2.1286 1986 Unknown [id number] 2.16.840.1.514910.3.579. 2.1285 1986 Unknown [id number] 2.16.840.1.739709.3.579. 2.128 1986 Unknown [id number] 2.16.840.1.745963.3.579. 2.9 1986 Unknown [id number] 2.16.840.1.738903.3.579. 2.9 1986 Unknown [id number] 2.16.840.1.273282.3.579. 2.1259 1986 Unknown [id number] 2.16.840.1.630919.3.579. 2.1259 1986 Unknown [id number] 2.16.840.1.838196.3.579. 2.1285 1986 Unknown [id number] 2.16.840.1.215033.3.579. 2.1286 1986 Unknown [id number] 2.16.840.1.744586.3.579. 2.128 1986 Unknown [id number] 2.16.840.1.742365.3.579. 2.128 1986 Unknown [id number] 2.16.840.1.289756.3.579. 2.128 1986 Unknown [id number] 2.16.840.1.569266.3.579. 2.1285 1986 Unknown [id number] 2.16.840.1.401454.3.579. 2.1286 1986 Unknown [id number] 2.16.840.1.954597.3.579. 2.1286 1986 Unknown [id number] 2.16.840.1.269012.3.579. 2.1286 1959 Private Health Insurance [id number]. [id number] Self-pay Self Pay [id number] Social History Date Type Detail Facility Start: 04-19-2021 End: 03-23-2024 Tobacco smoking status NHIS Never smoked tobacco [facility] [employer] Other Start: 04-19-2021 End: 12-16-2023 Tobacco use and exposure Smokeless tobacco non-user [employer] Phone: Start: 09-09-2021 End: 07-31-2024 Alcohol intake Ex-drinker (finding) [employer] Phone: Start: 01-31-2021 [employer] Work Phone: Start: 1985 Sex Assigned At [facility] Phone: Start: 09-13-2021 End: 10-12-2021 Exposure to SARS-CoV-2 (event) Not sure [employer] Start: 08-18-2020 End: 01-27-2024 Sex Assigned At [facility] [employer] Other Start: 1985 Sex Assigned At Female F [facility] Start: 01-27-2024 End: 08-24-2024 Alcoholic beverage intake Current drinker of alcohol (finding) [facility] Start: 08-18-2020 End: 01-27-2024 [facility] of [facility] Start: 07-29-2018 End: 03-23-2024 Tobacco use and exposure User of smokeless tobacco [facility] Childcare Unknown [facility] Start: 03-23-2024 Tobacco Comment [facility] , [facility] Start: 02-10-2015 End: 08-18-2024 Sex Female (finding) [facility] History of tobacco use Chews Tobacco [facility] Start: 01-17-2022 End: 03-11-2024 Alcoholic beverage intake Current non-drinker of alcohol (finding) [facility] Start: 07-22-2018 End: 02-04-2024 Tobacco Comment Once a week [facility] Medical Equipment Procedure Code Equipment Code Equipment Origin al Text Equipment Identifier Dates Occluder Cv Rt A tr Disc 25mm Lt Atr Disc 18mm Rcmd Shth 8f Rpl [id number] - [id number] Start: 03-13-2024 Use pen needles to give insulin. [id number] Start: 09-28-2021 Clinical Notes 06-14-2021 to 08-27-2024 Blane Healy MD - 08/27/2024 1:00 PM Robert Senior LPN - 08/24/2024 9:00 AM Andreina Calhoun MD - 07/31/2024 11:15 AM ESTTelephone Encounter - Emilie Almazan CMA - 07/30/2024 10:01 AM EST Note Date & Type Note Facility 08-27-2024 History of Present illness Narrative Images from the original note were not included. [facility] Visit [address] [address] Patient: Solange Lucas Date of : 1985 Encounter Date: 08/27/2024 Patient Care Team: Edward Mcqueen DO as PCP - General (Internal Medicine) ADELA Alejandre as Inside Sales (Nurse Inside Sales) Patient Location: home Patient Consent obtained: yes, Verbal Prior to beginning this clinical portion of this visit, the patient/family has consented to the use of this telemedicine E-visit and initiated the contact. They have also consented to using [employer] as a communications platform, understanding the privacy limitations, and telehealth and HIPAA waivers as established in the CMS expansion of telehealth benefits under the 1135 waiver authority and the Coronavirus Preparedness and Response Supplemental Appropriations Act Dated September and as summarized in September 22, 2019 [facility] FAQ on the Coronavirus (COVID-19) public health emergency. The patient has an established relationship with ms and was last seen in January 2024. [...] Gestational diabetes mellitus Hypertension Migraines Morbid obesity ([facility]) Panic attacks PFO (patent foramen ovale) Sprain [...] 07/29/2018 Performed by Benita Sarabia MD at [facility] OR SECTION W/ TUBAL LIGATION 10/12/2021 COLPOSCOPY Intracardiac echocardiogram N/A 03/13/2024 Performed by Dante Degroot MD at [facility] CARDIAC CATH LABS PATENT FORAMEN OVALE CLOSURE 03/13/2024 Patent foramen ovale closure with cath/patch/ICE N/A 03/13/2024 Performed by Dante Degroot MD at [facility] CARDIAC CATH LABS TONSILLECTOMY Current Outpatient [...] Inattention: 0=No abnormality Total: 0 NIHSS0 Modified Athens Score: 0 Risk Factor Management: PFO s/p closure 03/2024 Assessment/Plan: Patient Active Problem List Diagnosis Acne Abnormal facial hair Gestational diabetes mellitus History of delivery Encounter for sterilization BMI 50.0-59.9, adult ([facility]) Gestational hypertension, third trimester Intrauterine PFO (patent [...] This note was completed using a voice retaining room cutter system. Every effort was made to ensure accuracy; however, inadvertent computerized retaining room cutter errors may be present Please note case was done in collaboration with: patient I have spent 25 minutes personally reviewing previous history, imaging, and performing a face to face real time video health assessment on this patient via camera. If you have any further questions please feel free to contact our office at [facility]. This is a telemedicine visit. Verbal and/or [...] patient needs it documented in this encounter [facility] 08-24-2024 History of Present illness Narrative Reason [...] nursing note reviewed. Exam conducted with a chain builder loom control present. Vitals: Estimated body mass index is 29.29 kg/m as calculated from the following: Height as of this encounter: 5' 2 . Weight as of this encounter: 160 lb 1.9 oz. BP: 110/70 No LMP recorded (within weeks). ASSESSMENT & PLAN ICD-10-CM 1. Irregular menstrual cycle N92.6 2. Menorrhagia with irregular cycle N92.1 Patient was referred from [facility] for surgical management of irregular/heavy cycles. [...] Betito Srivastava DO documented in this encounter [facility] 07-31-2024 History of Present illness Narrative Solange Lucas Date of visit: 07/31/2024 Date of : 1985 Age: 39 y.o. Patient Active Problem List Diagnosis Acne Abnormal facial hair Gestational diabetes mellitus History of delivery Encounter for sterilization BMI 50.0-59.9, adult ([facility]) Gestational hypertension, third trimester Intrauterine PFO (patent [...] 07/29/2018 Performed by Benita Sarabia MD at [facility] OR SECTION W/ TUBAL LIGATION 10/12/2021 COLPOSCOPY Intracardiac echocardiogram N/A 03/13/2024 Performed by Dante Degroot MD at [facility] CARDIAC CATH LABS PATENT FORAMEN OVALE CLOSURE 03/13/2024 Patent foramen ovale closure with cath/patch/ICE N/A 03/13/2024 Performed by Dante Degroot MD at [facility] CARDIAC CATH LABS TONSILLECTOMY Family History [...] Interpersonal Safety: Unknown (12/18/2023) Received from [facility] Safety & Environment Fear of Current or [...] MCQUEEN DO Referring Physician: Edward Mcqueen DO [facility] [place] [address] documented in this encounter [facility] 07-30-2024 Miscellaneous Notes Called patient to remind them to bring their most current copy of their medication list with them to their appt. Patient verbalizes understanding. documented in this encounter [facility] 07-30-2024 Telephone encounter Note Called patient to remind them to bring their most current copy of their medication list with them to their appt. Patient verbalizes understanding. [facility] 07-27-2024 Miscellaneous Notes Called patient to offer earlier availability on 08/04. Pt was not available; LVM to call back. Appointment no longer available. documented in this encounter [facility] 07-27-2024 Telephone encounter Note Called patient to offer earlier availability on 08/04. Pt was not available; LVM to call back. [facility] 07-27-2024 Telephone encounter Note Appointment no longer available. [facility] 07-16-2024 History of Present illness Narrative Images from the original note were not included. PROBLEM VISIT Solange Lucas is 39 y.o. a patient of [facility] for growth by her rectum Last [...] [place],07/16/2024 2:41 PM documented in this encounter [facility] 06-17-2024 Miscellaneous Notes Pt called in to [facility] stating last night around 9:30pm she could [...] mcot 2 weeks Have her seen in [facility] Called and spoke to pt with PKR recommendations. Pt v/u. Mcot ordered and scheduled next avail appt at [facility]. documented in this encounter [facility] 06-17-2024 Telephone encounter Note Pt called in to [facility] stating last night around 9:30pm she could feel her heart racing and she did not feel right. She didn't think too much off it and went to bed. She said her fit bit stated signs of AFIB were detected and hear heart rate ranged from 44-180. Today she feels okay just tired. Sending message to PKR for recommendations. [facility] 06-17-2024 Telephone encounter Note Let's get mcot 2 weeks Have her seen in [facility] 06-17-2024 Telephone encounter Note Called and spoke to pt with PKR recommendations. Pt v/u. Simonot ordered and scheduled next avail appt at [facility]. [facility] 05-26-2024 Miscellaneous Notes Per June 2024 recall, patient is due for follow up with Dr. Healy. Please call and schedule patient. Spoke with patient and scheduled appt documented in this encounter [facility] 05-26-2024 Telephone encounter Note Per June 2024 recall, patient is due for follow up with Dr. Healy. Please call and schedule patient. [facility] [employer] [facility] 05-26-2024 Telephone encounter Note Spoke with patient and scheduled appt [facility] [employer] [facility] 03-23-2024 History of Present illness Narrative Images [...] delivery Encounter for sterilization BMI 50.0-59.9, adult ([facility]) Gestational hypertension, third trimester Intrauterine PFO (patent foramen ovale) TIA (transient ischemic attack) Past Medical History: Diagnosis Date Abnormal Pap smear of cervix Anxiety Atrial septal defect Gestational diabetes mellitus Hypertension Migraines Morbid obesity ([facility]) Panic attacks PFO (patent foramen ovale) Sprain of ankle, right TIA (transient ischemic attack) Tobacco abuse Past Surgical History: Procedure Laterality Date BACK SURGERY 2008 disc shaved (bulging) and fused 2 of them together Was in college REPEAT WITH IUD INSERTION N/A 07/29/2018 Performed by Benita Sarabia MD at [facility] OR SECTION W/ TUBAL LIGATION 10/12/2021 COLPOSCOPY Intracardiac echocardiogram N/A 03/13/2024 Performed by Dante Degroot MD at [facility] CARDIAC CATH LABS Patent foramen ovale closure with cath/patch/ICE N/A 03/13/2024 Performed by Dante Degroot MD at [facility] CARDIAC CATH LABS TONSILLECTOMY Family History [...] Interpersonal Safety: Unknown (12/18/2023) Received from [facility] Safety & Environment Fear of Current [...] Menorrhagia, anemia -Encouraged follow-up w/ PCP and HOME WORKER given current need for DAPT with known [...] MCQUEEN DO Referring Physician: Edward Mcqueen DO [facility] [place] [address] CRISTINA Saba 03/23/24 1122 [facility] 03-11-2024 History of Present illness Narrative Called patient to advise her she will need a test prior to her PFO closure procedure, she states she had a tubal. Spoke with clinical lab clerk staff, no need for test given patient's history. Will update her chart to reflect her surgical history. Per [facility]where csection with tubal performed on 10/12/21. Order for test cancelled. [facility] 03-05-2024 Miscellaneous Notes Called pt to r/s time of PFO closure on 03-12 to 2:30 and pt to arrive at 1:00p. Pt v/u. Went over reminder info listed below with pt. Reminder call for patient's upcoming PFO Closure procedure. Scheduled on: 03-12-24 at 2:30 Arrival time: 1:00p NPO after midnight the night before. Meds to hold: none Labs completed: no-reminded pt Needs racing driver home once discharged. documented in this encounter [facility] 03-05-2024 Telephone encounter Note Called pt to r/s time of PFO closure on 03-12 to 2:30 and pt to arrive at 1:00p. Pt v/u. Went over reminder info listed below with pt. Reminder call for patient's upcoming PFO Closure procedure. Scheduled on: 03-12-24 at 2:30 Arrival time: 1:00p NPO after midnight the night before. Meds to hold: none Labs completed: no-reminded pt Needs racing driver home once discharged. [facility] 02-17-2024 History of Present illness Narrative Images from the original note were not included. [facility] Structural heart clinic TELEHEALTH VIRTUAL [...] Gestational diabetes mellitus Hypertension Migraines Morbid obesity ([facility]) Panic attacks PFO (patent foramen ovale) Sprain [...] Interpersonal Safety: Unknown (12/18/2023) Received from [facility] Safety & Environment Fear of Current or [...] Dr. Tamika Martinez documented in this encounter [facility] 01-29-2024 History of Present illness Narrative Images from the original note were not included. [facility] Telestroke Clinic Visit [address] [id number] Patient: Solange Lucas Date of : 1985 Encounter Date: 01/29/2024 Patient Care Team: Edward Mcqueen DO as PCP - General (Internal Medicine) ADELA Alejandre as Inside Sales (Midwifery) Patient Location: home Patient Consent obtained: yes, Verbal Prior to beginning this clinical portion of this visit, the patient/family has consented to the use of this telemedicine E-visit and initiated the contact. They have also consented to using [employer] as a communications platform, understanding the privacy limitations, and telehealth and HIPAA waivers as established in the CMS expansion of telehealth benefits under the 1135 waiver authority and the Coronavirus Preparedness and Response Supplemental Appropriations Act Dated September and as summarized in September 22, 2019 [facility] FAQ on the Coronavirus (COVID-19) public health emergency. The patient was last seen by telestroke at [facility] in December 2023 . Reason for Visit: recent TIA x2 History of Present Illness: Subjective: Solange Lucas is a right handed 38 y.o. female with past medical history significant for HTN and PFO who was hospitalized in December 2023 for TIA. Patient had initially presented with right arm weakness and expressive aphasia to [place] [facility] room. Patient was subsequently admitted and [...] Gestational diabetes mellitus Hypertension Migraines Morbid obesity ([facility]) Panic attacks Sprain of ankle, right Tobacco [...] 07/29/2018 Performed by Benita Sarabia MD at [facility] OR SECTION COLPOSCOPY TONSILLECTOMY Current Outpatient Medications [...] 0=No abnormality Total: 0 NIHSS 0 Modified [place] Score: 0 Risk Factor Management: Hypertension target range 130-140/70-80 Lipid range - LDL < 70 and checked every 6 months, fasting Diabetes - HgB A1C <7 Assessment/Plan: Patient Active Problem List Diagnosis Acne Abnormal facial hair Gestational diabetes mellitus History of delivery Encounter for sterilization BMI 50.0-59.9, adult ([facility]) Gestational hypertension, third trimester Intrauterine Patient is a 38-year-old female who sustained a TIA that localized to the left MCA distribution at [facility] in December 26, 2023 with [...] This note was completed using a voice retaining room cutter system. Every effort was made to ensure accuracy; however, inadvertent computerized retaining room cutter errors may be present Please note case was done in collaboration with: patient I have spent 30 minutes personally reviewing previous history, imaging, and performing a face to face real time video health assessment on this patient via camera. If you have any further questions please feel free to contact our office at [facility]. This is a telemedicine visit. Verbal and/or [...] patient needs it documented in this encounter [facility] 01-29-2024 Instructions Blane Healy MD - 01/29/2024 3:00 PM EDT Continue ASA and statin. Complete event monitor If monitor is negative, reasonable to pursue PFO closure If event monitor is positive for AFib/flutter, will start patient on AC Followup in approx. 5-6 months. Continue to followup with cardiology. documented in this encounter [facility] 12-26-2023 Miscellaneous Notes ----- Message from ANA CRISTINA Hagan sent at 12/26/2023 9:49 AM EDT ----- This is Barbie's BFF. I spoke to PKR and we are just going to proceed w/ getting the EMMA and wireless tele now. I'm waiting on records from [place] to confirm if she needs hypercoag testing or not. I placed the MCOT order, please just help arrange for the EMMA. Left message for pt Images from the original note were not included. Pt called back and scheduled EMMA. Instructed below were given verbally over the phone as well as sent via [employer]. [facility] Structural Heart Clinic: EMMA Procedure: Transesophageal Echocardiogram Testing Location: [facility] ([address] [place] [address]) Date/Time of Procedure: 01/13/2024 at 08:45 am [...] only. Other Instructions: [x] Must have a racing driver as you will be unable to drive once discharged Important Information Notify the [facility] Clinic of any illness, infection or COVID symptoms or a COVID positive result immediately at [phone] Please notify the [facility] if [...] please call the [facility] at [phone] documented in this encounter [facility] 12-26-2023 Telephone encounter Note ----- Message from ANA CRISTINA Hagan sent at 12/26/2023 9:49 AM EDT ----- This is Barbie's BFF. I spoke to PKR and we are just going to proceed w/ getting the EMMA and wireless tele now. I'm waiting on records from [place] to confirm if she needs hypercoag testing or not. I placed the MCOT order, please just help arrange for the EMMA. [facility] 12-26-2023 Telephone encounter Note Left message for pt [facility] 12-26-2023 Telephone encounter Note Images from the original note were not included. Pt called back and scheduled EMMA. Instructed below were given verbally over the phone as well as sent via [employer]. [facility] Clinic: EMMA Procedure: Transesophageal Echocardiogram Testing Location: [facility] ([address] [place] [address] [place] [address]) Date/Time of Procedure: 01/13/2024 at 08:45 am [...] only. Other Instructions: [x] Must have a racing driver as you will be unable to drive once discharged Important Information Notify the [facility] of any illness, infection or COVID symptoms or a COVID positive result immediately at [phone] Please notify the [facility] if [...] please call the [facility] at [phone] [facility] 12-26-2023 History of Present illness Narrative Self referral for TIA, suspected PFO/ASD. Prior evaluation with Dr. Palomino, [facility]. Chart reviewed, spoke with PKR. Will proceed with EMMA, 30 day wireless tele, and hypercoag testing (if not already done). Follow-up in clinic after that. Will get all records/images from [facility]. ANA CRISTINA Saba 12/26/23 0949 documented in this encounter [facility] 12-20-2023 Note DC Cardiology - [facility] Subjective Solange Lucas is a 38 [...] hair Acne Antepartum hypertension BMI 50.0-59.9, adult ([facility]) Encounter for sterilization Gestational hypertension, third trimester [...] On 12/17/2023 she was admitted to the [facility] after sustaining right arm weakness, difficulty speaking and facial droop. The symptoms resolved within 10 to 15 minutes of onset. During the symptoms, she FaceTime her mother who is a nurse and explained to her what was happening and she was taken to the emergency room at the [facility] where she was admitted and [...] saline contrast injections show evidence of significant [id number] shunt at the interatrial septal level at [...] (EMMA); Future Conge (more content not included)... [facility] 12-18-2023 Miscellaneous Notes Yasmine Alexandre, ESTHER-DANYELL P [facility] Stroke Scheduling; P [facility] Stroke Paediatric Thoracic Physician; High risk tia. Follow up telemedicine in 4 weeks with dangelo healy fellow. 30 day event monitor on discharge. Also with pfo. May need closure going to see [facility] cardiology to discuss. Called patient and scheduled video visit with Dr. Healy on 01/29/24 at 1500 documented in this encounter [facility] 12-18-2023 Telephone encounter Note OFE Weiss P [facility] Stroke Scheduling; P P[facility] Stroke Paediatric Thoracic Physician; High risk tia. Follow up telemedicine in 4 weeks with dangelo healy fellow. 30 day event monitor on discharge. Also with pfo. May need closure going to see [facility] cardiology to discuss. Called patient and scheduled video visit with Dr. Healy on 01/29/24 at 1500 [facility] 12-18-2023 Miscellaneous Notes ----- Message from OFE Weiss sent at 12/18/2023 10:36 AM EDT ----- Regarding: follow up High risk tia. Follow up telemedicine in 4 weeks with dangelo healy fellow. 30 day event monitor on discharge. Also with pfo. May need closure going to see [facility] cardiology to discuss. Pt scheduled 01/29/24 documented in this encounter [facility] 12-18-2023 Telephone encounter Note ----- Message from OFE Weiss sent at 12/18/2023 10:36 AM EDT ----- Regarding: follow up High risk tia. Follow up telemedicine in 4 weeks with dangelo healy fellow. 30 day event monitor on discharge. Also with pfo. May need closure going to see [facility] cardiology to discuss. [facility] 12-18-2023 Telephone encounter Note Pt scheduled 01/29/24 [employer] [facility] 05-03-2023 Evaluation note Encounter Date Diagnosis [...] disorder, 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) [employer] Other 10-16-2023 Evaluation note* Encounter Date Diagnosis Assessment Notes Treatment Notes Treatment Clinical Notes Apr, Mild episode of recurrent major depressive disorder (ICD-10 - F33.0) [employer] Other 10-03-2023 Evaluation note* Encounter Date [...] Treat underlying condition and insomnia should improve [employer] Other 02-22-2023 Evaluation note* Encounter Date Diagnosis Assessment Notes Treatment Notes Treatment Clinical Notes Aug, Pharyngitis due to Streptococcus species (ICD-10 - J02.0) Gargle w/ salt water, tylenol and rest [employer] [facility] Other 04-09-2022 History of Present illness [...] Message received from ADELA Caceres who is polymerization oven operator today that my patient has arrived to the unitand she has elevated blood pressures. Hypertension protocol being started and Dr Panda would like to proceed with her repeat section soon. 0947 this write leaves my office and enroute to [place], documented in this [facility] Phone: [phone]) 422-249703-19-2022 History of Present illness Narrative* Shanel S Bless, RN - 09/23/2021 3:40 PM EDT Pt here for scheduled NST. Pt states she is insulin controlled gestational diabetic and [facility] Pt reports + movement today. Pt denies vaginal bleeding or leaking offluid. Pt states that she sometimes has back pain if she stands for too long, pt denies pain currently. Pt denies pain or burning when urinating. Pt denies headache or blurred vision. marker button given. documented in this [facility] Phone: 1([phone]) 894-316012-08-2021 Evaluation note* Encounter Date Diagnosis Assessment Notes [...] [facility] Care At Home document. [employer] Other Evaluation note* Diagnosis Diet controlled gestational diabetes mellitus (GDM) in third trimester documented in this encounter [employer] Phone: evaluation note* Diagnosis Diet controlled gestational diabetes mellitus (GDM) in third trimester documented in this encounter [employer] Phone: evaluation note* Diagnosis Diet controlled gestational diabetes mellitus (GDM) in third trimester documented in this encounter [employer] Phone: evalejpabe note* Diagnosis Diet controlled gestational diabetes mellitus (GDM) in third trimester documented in this encounter [employer] Phone: evaluhwjem note* Diagnosis Abdominal pain- Primary Abdominal pain, unspecified site Born by section Hypertension affecting in first trimester Hypertension affecting in third trimester documented in this encounter [employer] Phone: evaluefaxl noteNo [facility] [employer] Other Evaluation note* Diagnosis Onset Date Resolution Status Anemia acute PFO (patent foramen ovale) a cute TIA (transient ischemic attack) acute Type 2 diabetes mellitus with hyperglycemia acute [facility] Work Phone: Evaluation note* Diagnosis Inclusion cyst- Primary Sebaceous cyst [facility] Diagnosis Palpitations- Primary PFO (patent foramen ovale) Ostium secundum type atrial septal defect S/P percutaneous patent foramen ovale closure Other postprocedural status TIA (transient ischemic attack) Unspecified transient cerebral ischemia [facility] Diagnosis Onset Date Resolution Status Admit Date Anemia acute August 18, 2024 1:20pm Bradycardia acute August 1:20pm Fatigue acute August 18, 2024 1:20pm [facility] Work Phone: Evaluation note* Diagnosis PFO (patent foramen ovale)- Primary Ostium secundum type atrial septal defect TIA (transient ischemic attack) Unspecified transient cerebral ischemia [facility]ations [facility] Diagnosis TIA (transient ischemic attack)- Primary Unspecified transient cerebral ischemia [facility] Diagnosis TIA (transient ischemic attack)- Primary Unspecified transient cerebral ischemia [facility] Diagnosis PFO (patent foramen ovale)- Primary Ostium secundum type atrial septal defect PFO (patent foramen ovale)- Primary Ostium secundum type atrial septal defect History of delivery PFO (patent foramen ovale) Ostium secundum type atrial septal defect [facility] Diagnosis PFO (patent foramen ovale)- Primary Ostium secundum type atrial septal defect S/P percutaneous patent foramen ovale closure Other postprocedural status [facility] Diagnosis Palpitations- Primary [facility] Diagnosis Irregular menstrual cycle Menorrhagia with irregular cycle PCOS (polycystic ovarian syndrome) Polycystic ovaries documented in this encounter [facility]* Diagnosis LOC (loss of consciousness) ([facility] Primary Other alteration of [facility] - [facility]* Type Description Date Medical History anxiety Surgical History back surgery Surgical History tonsillectomy Surgical History C section Surgical History PE tubes Surgical History adnoidectomy Hospitalization History child [employer] [facility] Other History general Narrative - Reported* [...] History child Hospitalization History SEE SURGICAL HX [employer] [facility] Other Hisvoii general Narrative - Reported* Type Description Date [...] Hospitalization History child Hospitalization History SEE SURGICAL [facility] [facility] Other Hospital Discharge instructions* Attachments The following attachments cannot be sent through Care Everywhere. * Section: Post-op (Panamanian) * (Panamanian) * Video: Caring for Yourself After Delivery (Panamanian) * : Exercises (Panamanian) * Depression: (Panamanian) * Parenting: Stress and Infants (Panamanian) [facility]: InstructionsNot on filedocumented in this [...] Health SystemInstructionsNot on filedocumented in this encounter [facility] Summary Purpose Family History No [...] mellitus with hyperglycemia Chief Complaint Admit Date [facility] ER:Syncope August 18, 2024 1:20pm Reason for Visit Admit Date Anemia August 18, 2024 1:20pm Bradycardia August 18, 2024 1:20pm Fatigue August 18, 2024 1:20pm Reason for Referral Specialty Diagnoses / Procedures Referred By Leila t Referred To Contact Diagnoses PFO (patent foramen ovale) S/P percutaneous patent foramen ovale closure Procedures Echo complete W/O contrast Mick Jett PA [address] [place] [address] Referral ID Status Reason Start Date Expiration Date V isits Requested Visits Authorized [id number] Pending Review 03/23/2024 03/23/2025 1 1 Specialty Diagnoses / Procedures Referred By Contac t Referred To Contact Diagnoses PFO (patent foramen ovale) TIA (transient ischemic attack) Palpitations Procedures Wireless Telemetry (In Office) Mick Jett PA [address] [address] Referral ID Status Reason Start Date Expiration Date V isits Requested Visits Authorized [id number] Pending Review 12/26/2023 12/25/2024 1 1 Additional Source Comments INFORMATION SOURCE (unrecogn ized section and content) DATE CREATED AUTHOR 12/31/2017 [facility] DATE CREATED AUTHOR AUTHOR'S ORGANIZ ATION 05/15/2021 [facility] DATE CREATED AUTHOR AUTHOR'S ORGANIZ ATION 06/21/2021 [facility] DATE CREATED AUTHOR AUTHOR'S ORGANIZ ATION 09/27/2021 [facility] DATE CREATED AUTHOR AUTHOR'S ORGANIZ ATION 10/16/2021 [facility] DATE CREATED AUTHOR AUTHOR'S ORGANIZ ATION 08/28/2022 [facility] DATE CREATED AUTHOR AUTHOR'S ORGANIZ ATION 12/21/2023 [facility] DATE CREATED AUTHOR AUTHOR'S ORGANIZ ATION 04/28/2024 [facility] DATE CREATED AUTHOR AUTHOR'S ORGANIZ ATION 06/21/2024 [facility] DATE CREATED AUTHOR AUTHOR'S ORGANIZ ATION 08/25/2024 [facility] EPIC DATE CREATED AUTHOR AUTHOR'S ORGANIZ ATION [facility]29[facility]20[facility] Reason for Visit (unrecogniz ed section and content) Reason Comments Non-stress Test Reason Comments Abdominal Pain Specialty Diagnoses / Procedures Referred By Contac t Referred To Contact Diagnoses Abdominal pain Hypertension affecting in first trimester Hypertension affecting in third trimester Bryanna Barth, MANAGER BODY - CNM [address] [place] [address] [facility] [address] [place] [address] Referral ID Status Reason Start Date Expiration [...] Care Teams (unrecognized sec tion and content) Pile Driving Supervisor Relationship Specialty Start Date End Date Edward Mcqueen, DO [address] [place] [address] PCP - General Internal Medicine 06/21/21 [employer] D[employer] Supervisor Relationship Specialty Start Date End Date Edward Mcqueen, DO [address] [facility] [place] [address] PCP - General Internal Medicine 06/21/21 Pile Driving Supervisor Relationship Specialty Start Date End Date Edward Mcqueen, DO [address] [place] [address] PCP - General Internal Medicine 06/21/21 Pile Driving Supervisor Relationship Specialty Start Date End Date Edward Mcqueen, DO [address] [place] [address] PCP - General Internal Medicine 06/21/21 Pile Driving Supervisor Relationship Specialty Start Date End Date Edward Mcqueen, DO [address] [place] [address] PCP - General Internal Medicine 06/21/21 Pile Driving Supervisor Relationship Specialty Start Date End Date Edward Mcqueen DO [address] [place] [address] PCP - General Internal Medicine 06/21/21 Team [...] December 23, 2023 End: December 23, 2023 Pile Driving Supervisor Relationship Specialty [place] [address] [place] [address] [id number] PCP - General Internal Medicine 05/19/18 Pile Driving Supervisor Relationship Specialty [place] [address] [place] [address] [id number] PCP - General Internal Medicine 05/19/18 Pile Driving Supervisor Relationship Specialty [place] [address] [place] [address] [id number] PCP - General Internal Medicine 05/19/18 Team Status: Active Member Role Status Dates Edward Mcqueen DO Primary Care Provider Active Start: August 17, 2024 Nathanael Morales DO Attending Provider Active S tart: August 17, 2024 Team Status: Inactive Member Role Status Dates Edward Mcqueen DO Primary Care Provide r, Attending Provider Active Start: August 18, 2024 End: August 18, 2024 Pile Driving Supervisor Relationship Specialty [place] [address] [place] [address] [id number] PCP - General Internal Medicine 05/19/18 Pile Driving Supervisor Relationship Specialty Start Date End Date Edward Mcqueen DO [address] [place] [address] PCP - General Internal Medicine 05/19/18 Pile Driving Supervisor Relationship Specialty Start Date End Date Edward Mcqueen DO [address] [place] [address] PCP - General Internal Medicine 05/19/18 Pile Driving Supervisor Relationship Specialty Start Date End Date Edward Mcqueen DO [address] [place] [address] PCP - General Internal Medicine 05/19/18 Pile Driving Supervisor Relationship Specialty Start Date End Date Edward Mcqueen DO [address] [place] [address] PCP - General Internal Medicine 05/19/18 Pile Driving Supervisor Relationship Specialty Start Date End Date Edward Mcqueen DO [address] [place] [address] PCP - General Internal Medicine 05/19/18 Pile Driving Supervisor Relationship Specialty Start Date End Date Edward Mcqueen DO [address] [place] [address] PCP - General Internal Medicine 05/19/18 Ordered [...] (Stopped - Provider: Ruben Mccabe APRN - [employer]) docusate sodium (COLACE) capsule 100 mg 100 [...] Bag - Provider: Ruben Mccabe APRN - [employer] - Comment: given over 60 minutes.) ibuprofen [...] Reason: Other - Comment: IV removed)2100 (Due) vatcqlp-rupook-bmfhe pertussis (BOOSTRIX) injection 0.5 mL 0.5 mL, [...] (NoRateChange - Provider: Ruben Mccabe APRN - [employer]) lactated ringers infusion IntraVENous, at 50 mL/hr, CONTINUOUS, Starting on Denisha 10/12/21 at 1345, 1256 (Rate/Dose Change - Provider: Milla Davis RN)2150 (Rate/Dose Change - Provider: Lilo Kulkarni RN)2245 (Rate/Dose Change - Provider: Lilo Kulkarni RN) 0522 (Rate/Dose Change - Provider: Lilo Kulkarni RN) 1127 (Stopped - Provider: Leda Glez RN) magnesium sulfate (67545 mg/500mL infusion) (CANCELED) 2,000 mg/hr (50 mL/hr), [...] (NoRateChange - Provider: Ruben Mccabe APRN - [employer]) magnesium sulfate (20468 mg/500mL infusion) () 1,000 mg/hr (25 mL/hr), [...] BE BASED ON THE PRIMARY CLINICAL RECORDS. [facility] [employer] [facility]. provides no warranty or guarantee of the accuracy or completeness of information in this document.
[2024-09-02 09:07] LABS: Basophils Absolute Auto 0.1 10^3/uL (0.0-0.1); Basophils Percent Auto 0.9 % (0.2-2.0); Eosinophils Absolute Auto 0.1 10^3/uL (0.0-0.7); Hematocrit 34.2 % (36.0-48.0); Hemoglobin 10.4 g/dL (12.0-16.0); Immature Granulocytes Abs Auto 0.02 10^3/uL (0.00-0.03); Immature Granulocytes Pct Auto 0.4 % (0.0-0.5); Lymphocytes Absolute Auto 1.7 10^3/uL (1.2-3.8); Lymphocytes Percent Auto 31.9 % (20.5-60.0); Mean Corpuscular HGB Conc 30.4 g/dL (29.9-35.2); Mean Corpuscular Hemoglobin 21.8 pg (26.7-34.0); Mean Corpuscular Volume 71.8 fL (81.0-99.0); Mean Platelet Volume 9.6 fL (9.5-13.5); Monocytes Absolute Auto 0.4 10^3/uL (0.3-0.8); Monocytes Percent Auto 7.7 % (1.7-12.0); Neutrophils Absolute Auto 3.1 10^3/uL (1.4-6.5); Neutrophils Percent Auto 57.1 % (43.0-75.0); Platelet Count 310 10^3/uL (150-450); Red Blood Count 4.76 10^6/uL (4.20-5.40); Red Cell Distribution Width 18.4 % (11.0-15.0); White Blood Count 5.4 10^3/uL (4.0-11.0)
[2024-09-02 09:22] LABS: INR 1.09; Prothrombin Time 11.5 sec (9.0-11.6)
[2024-09-02 09:28] LABS: Alanine Aminotransferase 22 U/L (14-59); Albumin Level 3.4 g/dL (3.4-5.0); Alkaline Phosphatase 66 U/L (46-116); Aspartate Amino Transferase 16 U/L (15-37); BUN Creatinine Ratio 15.3; Bilirubin Total 0.5 mg/dL (0.2-1.0); Calcium 8.6 mg/dL (8.5-10.1); Carbon Dioxide 28.6 mmol/L (21.0-32.0); Chloride 106 mmol/L (98-107); Estimated GFR (African America >60 (>=60 mL/min/1.73m^2); Estimated GFR (Non-African Ame >60 (>=60 mL/min/1.73m^2); Globulin 3.3 g/dL; Glucose 69 mg/dL (74-106); Percent Iron Saturation 3.2 %; Potassium 3.6 mmol/L (3.5-5.1); Sodium 140 mmol/L (136-145); Total Protein 6.7 g/dL (6.4-8.2)
[2024-09-02 09:37] LABS: TSH W/ REFLEX FT4 1.138 uIU/mL (0.358-3.740); Troponin I High Sensitivity 4.8 pg/mL (4.0-51.3)
--- NOTE | 2024-09-02 10:37 | ED_ITS ---
HPI HPI - General Adult General Chief complaint: Shortness of Breath/Dyspnea Stated complaint: A-FIB Time Seen by Provider: 09/02/24 08:31 Source: patient Mode of arrival: walk-in History of Present Illness HPI narrative: Patient presents to ED complaining of heart palpitations. She was seen yesterday at the cardiology office and had a Holter monitor placed. She said she is supposed to wear it for 14 days. She said last night she could feel that her heart was racing and her Apple Watch was alerting her that it was 150-180 beats. She said it was also alerting her that it was A-fib. She does have a history of a PFO in the past. She was on Plavix for that but recently stopped her Plavix. She does take a baby aspirin daily. Patient denies any chest pain she just said when the heart palpitations were acting up then she was feeling short of breath with that. She said the palpitations were lasting all night and into this morning even when she was getting her kids ready for school. She then had her dad drive her into the emergency room and she said as soon as she had the parking lot the palpitations stopped. On arrival her heart rate was in the 70s. Blood pressure is normal, heart rate normal no fever no respiratory distress normal oxygen saturation. She did say that she is supposed to get blood work soon and has the order with her. Patient did say that she ate this morning. Patient placed on the monitor and IV established. Related Data Home Medications ?Medication ?Instructions ?Recorded ?Confirmed clopidogrel 75 mg tablet mg 09/02/24 escitalopram oxalate 10 mg tablet mg 09/02/24 Previous Rx's ?Medication ?Instructions ?Recorded aspirin 81 mg tablet,delayed 81 mg PO DAILY #30 tabs 12/18/23 release ferrous sulfate 325 mg (65 mg 325 mg PO BID #60 tabs 12/18/23 iron) tablet (Iron (ferrous sulfate)) Allergies Allergy/AdvReac Type Severity Reaction Status Date / Time Penicillins Allergy Mild Rash Verified 09/02/24 08:39 Opioid HPI Opioid Management Most Recent Opioid Data: Last Pain Scale 0 12/18/23 04:06 12/18/23 Last ORT Total Score 0 12/17/23 12:36 12/17/23 Last ORT Risk Category Low Risk 12/17/23 12:36 12/17/23 Review of Systems ROS Status of ROS 10 or more systems reviewed and unremark able except as noted in history and below PFSH [facility] Medical History (Updated 09/02/24 @ 10:14 by Isis Nagy DO) Menorrhagia ?N92.0 - Excessive and frequent menstruation with regular cycle (ICD-10) Iron deficiency anemia due to chronic blood loss ?D50.0 - Iron deficiency anemia secondary to blood loss (chronic) (ICD-10) Anxiety ?F41.9 - Anxiety disorder, unspecified (ICD-10) Surgical History (Updated 12/17/23 @ 12:55 by Emilie Wilburn LPN) Tubal ligation status ?Z98.51 - Tubal ligation status (ICD-10) Gastric bypass status for obesity ?Z98.84 - Bariatric surgery status (ICD-10) Family History (Updated 12/17/23 @ 12:51 by Emilie Wilburn LPN) Mother Family history of diabetes mellitus Father Family history of diabetes mellitus Family history of hypertension Social History (Updated 12/17/23 @ 12:52 by Emilie Wilburn LPN) Smoking status: Current every day smoker Do you use any of these nicotine containing products: smokeless tobacco Second hand tobacco smoke exposure: No Non-prescribed substance use: denies use Known occupational exposures/hazards: No Highest level of school completed/degree received: Master's degree Do you want help with school or training: No Are you now , , , , never or living with a partner: In a typical week, how many times do you talk on the telephone with family, friends, or neighbors: 3 or more times per week How often do you get together with friends or relatives: 3 or more times per week How often do you attend episcopal or protestant services: 4 or more times per year Do you belong to any clubs or organizations such as episcopal groups unions, fraternal or athletic groups, or school groups: no Total score: 3 Score interpretation: A score of greater than or equal to 2 indicates the lowest level of social isolation. Little interest or pleasure in doing things: not at all Feeling down, depressed, or hopeless: not at all Feel stressed/tense/nervous/anxious/difficulty sleeping: not at all Due to disability, difficulty making decisions: No Do you think of yourself as: straight/heterosexual Gender Identity: female Exam Narrative Exam Narrative: Time Seen: [] Vital Signs: [Per nurse's notes.] General: [Alert] Skin: [Warm, dry, no rash.] Head: [Normocephalic, atraumatic.] Neck: [Supple, trachea midline.] Eye: [Pupils are equal, round and reactive to light, extraocular movements are intact, normal conjunctiva.] Ears, nose, mouth and throat: oral mucosa moist. Cardiovascular: [Regular rate and rhythm, no murmur.] Respiratory: [Lungs are clear to auscultation, respirations are non-labored, breath sounds are equal.] Chest wall: [No tenderness, no deformity.] Gastrointestinal: [Soft, nontender, non distended, normal bowel sounds.] MSK: 5 out of 5 muscle strength x 4 extremities no calf pain or edema Lymphatics: [No lymphadenopathy.] Psychiatric: [Cooperative, appropriate mood & affect.] Neurological: [Alert and oriented to person, place, time, and situation, no focal neurological deficit observed.] Constitutional Vital Signs, click to edit/add: Last Vital Signs Temp 97.7 F 09/02/24 08:40 Pulse 68 09/02/24 10:00 Resp 17 09/02/24 10:00 BP 105/54 09/02/24 09:45 Pulse Ox 100 09/02/24 10:00 O2 Del Method Room Air 09/02/24 08:40 Course Vital Signs Vital signs: Vital Signs Temperature 97.7 F 09/02/24 08:40 Pulse Rate 80 09/02/24 08:40 Respiratory Rate 16 09/02/24 08:40 Blood Pressure 113/75 09/02/24 08:40 Pulse Oximetry 100 09/02/24 08:40 Oxygen Delivery Method Room Air 09/02/24 08:40 Temperature 97.7 F 09/02/24 08:40 Pulse Rate 68 09/02/24 10:00 Respiratory Rate 17 09/02/24 10:00 Blood Pressure 105/54 09/02/24 09:45 Pulse Oximetry 100 09/02/24 10:00 Oxygen Delivery Method Room Air 09/02/24 08:40 Medical Decision Making MDM Narrative Medical decision making narrative: Patient's labs are negative for acute findings. She does have low iron but she is on an iron supplement. Her hemoglobin is slightly improving. Dr. Page will follow-up on the blood work from today for outpatient management if any changes are needed. No acute findings today on laboratory studies. TSH was normal. Troponin negative. I called and spoke to Dr. Cisse cardiology and she said to contact the [place] office. I contacted the [place] office and spoke to Yasmine and she was able to get her an appointment this afternoon at 245. Patient will be discharged from here and will go to the cardiology appointment at 245 today. Patient states she is comfortable with this care plan and she is able to get to the office today at 245. They will analyze her monitor and determine if she needs a beta-hunter or not at that appointment. Patient is stable and comfortable with discharge home. Differential Diagnosis Differential Diagnosis: A-fib a flutter SVT PVCs PACs Medical Records Medical records reviewed: Yes I reviewed the patient's medical records Lab Data Lab results reviewed: Yes I reviewed the patient's lab results Labs: Lab Results 09/02/24 Range/Units 08:55 WBC 5.4 (4.0-11.0) 10^3/uL RBC 4.76 (4.20-5.40) 10^6/uL Hgb 10.4 L (12.0-16.0) g/dL Hct 34.2 L (36.0-48.0) % MCV 71.8 L (81.0-99.0) fL MCH 21.8 L (26.7-34.0) pg MCHC 30.4 (29.9-35.2) g/dL RDW 18.4 H (11.0-15.0) % Plt Count 310 (150-450) 10^3/uL MPV 9.6 (9.5-13.5) fL Neut % (Auto) 57.1 (43.0-75.0) % Lymph % (Auto) 31.9 (20.5-60.0) % Osborne % (Auto) 7.7 (1.7-12.0) % Eos % (Auto) 2.0 (0.9-7.0) % Baso % (Auto) 0.9 (0.2-2.0) % Neut # (Auto) 3.1 (1.4-6.5) 10^3/uL Lymph # (Auto) 1.7 (1.2-3.8) 10^3/uL Osborne # (Auto) 0.4 (0.3-0.8) 10^3/uL Eos # (Auto) 0.1 (0.0-0.7) 10^3/uL Baso # (Auto) 0.1 (0.0-0.1) 10^3/uL Abs Immat Gran (auto) 0.02 (0.00-0.03) 10^3/uL Imm/Tot Granulo (auto) 0.4 (0.0-0.5) % PT 11.5 (9.0-11.6) sec INR 1.09 Sodium 140 (136-145) mmol/L Potassium 3.6 (3.5-5.1) mmol/L Chloride 106 (98-107) mmol/L Carbon Dioxide 28.6 (21.0-32.0) mmol/L Anion Gap 9.0 BUN 11.0 (7.0-18.0) mg/dL Creatinine 0.72 (0.55-1.02) mg/dL Est GFR ( Amer) >60 (>=60 mL/min/1.73m^2) Est GFR (Non-Af Amer) >60 (>=60 mL/min/1.73m^2) BUN/Creatinine Ratio 15.3 Glucose 69 L (74-106) mg/dL Calcium 8.6 (8.5-10.1) mg/dL Magnesium 2.0 (1.8-2.4) mg/dL Iron 14.0 L (50.0-170.0) ug/dL TIBC 436.0 (250.0-450.0) ug/dL % Saturation 3.2 % Total Bilirubin 0.5 (0.2-1.0) mg/dL AST 16 (15-37) U/L ALT 22 (14-59) U/L Alkaline Phosphatase 66 (46-116) U/L Troponin I High Sens 4.8 (4.0-51.3) pg/mL Total Protein 6.7 (6.4-8.2) g/dL Albumin 3.4 (3.4-5.0) g/dL Globulin 3.3 g/dL Albumin/Globulin Ratio 1.0 TSH & Free T4 Interp 1.138 (0.358-3.740) uIU/mL ECG Data Attestation: I personally reviewed and interpreted this ECG as follows: Interpretation: EKG INTERPRETATION Time: [] 847 Rate: [] 73 Rhythm: _ [] Sinus rhythm ST segments: _ [] No acute ST elevation or depression T waves: _ [] Ectopy: _ [] P wave/MA interval: _ [] QRS interval: _ [] QT interval: _ [] Comparison: _ [] Comparison EKG date: [] Performed by: [self] Discharge Plan Discharge Chief Complaint: Shortness of Breath/Dyspnea Clinical Impression: Heart palpitations Patient Disposition: Home, Self-Care Time of Disposition Decision: 10:13 Condition: Good Mode of Transportation: Private Vehicle Prescriptions / Home Meds: No Action ferrous sulfate [Iron (ferrous sulfate)] 325 mg (65 mg iron) tablet 325 mg PO BID Qty: 60 0RF Rx Instructions: Use stool softeners as needed to avoid constipation aspirin 81 mg tablet,delayed release (DR/EC) 81 mg PO DAILY Qty: 30 0RF clopidogrel 75 mg tablet escitalopram oxalate 10 mg tablet Print Language: Gibraltarian Instructions: Heart Palpitations (ED) Referrals: Edward Page DO [Primary Care Provider] - 1 week RAFAEL STATON [Physician] - 09/02/24 2:45 pm
[2024-09-03 05:07] LABS: Vitamin B12 285 pg/mL (232-1245)
== END 2024-09-02 10:52 | disposition home or self-care (01) ==
PROVIDERS: Emergency Provider Emergency Medicine; PCP Internal Medicine
DX: R00.2 Palpitations (principal); Z79.82 Long term (current) use of aspirin; Z98.51 Tubal ligation status; Z98.84 Bariatric surgery status; F17.290 Nicotine dependence, other tobacco product, uncomplicated; R06.02 Shortness of breath
CPT/HCPCS: 36415; 71045; 80053; 82607; 82728; 82746; 83540; 83550; 83735; 84443; 84484; 85025; 85610; 93005; 99284

== ENCOUNTER 2024-11-13 11:38 | Outpatient (OUT) | payer BC, SELFPAY ==
[2024-11-13 12:28] LABS: Basophils Absolute Auto 0.1 10^3/uL (0.0-0.1); Eosinophils Percent Auto 0.4 % (0.9-7.0); Hematocrit 29.6 % (36.0-48.0); Hemoglobin 8.8 g/dL (12.0-16.0); Immature Granulocytes Abs Auto 0.02 10^3/uL (0.00-0.03); Immature Granulocytes Pct Auto 0.3 % (0.0-0.5); Lymphocytes Absolute Auto 1.5 10^3/uL (1.2-3.8); Mean Corpuscular HGB Conc 29.7 g/dL (29.9-35.2); Mean Corpuscular Hemoglobin 20.8 pg (26.7-34.0); Mean Platelet Volume 10.5 fL (9.5-13.5); Monocytes Absolute Auto 0.5 10^3/uL (0.3-0.8); Monocytes Percent Auto 6.5 % (1.7-12.0); Neutrophils Absolute Auto 5.3 10^3/uL (1.4-6.5); Neutrophils Percent Auto 71.8 % (43.0-75.0); Platelet Count 276 10^3/uL (150-450); Red Blood Count 4.23 10^6/uL (4.20-5.40); Red Cell Distribution Width 15.4 % (11.0-15.0); White Blood Count 7.3 10^3/uL (4.0-11.0)
[2024-11-13 12:47] LABS: Anion Gap 10.6; BUN Creatinine Ratio 17.6; Calcium 8.3 mg/dL (8.5-10.1); Carbon Dioxide 27.4 mmol/L (21.0-32.0); Chloride 98 mmol/L (98-107); Estimated GFR (African America >60 (>=60 mL/min/1.73m^2); Estimated GFR (Non-African Ame >60 (>=60 mL/min/1.73m^2); Glucose 157 mg/dL (74-106); Sodium 132 mmol/L (136-145)
== END 2024-11-13 11:39 | disposition home or self-care (01) ==
LOC: LAB 11:39
PROVIDERS: PCP Internal Medicine; Visit Provider Internal Medicine Cardiovascular Disease
DX: I48.0 Paroxysmal atrial fibrillation (principal)
CPT/HCPCS: 36415; 80048; 85025

== ENCOUNTER 2025-04-24 12:34 | Outpatient (OUT) | payer BC, SELFPAY ==
--- OUTSIDE RECORDS SUMMARY | 2011-02-23 10:35 | XMS_ITS | Continuity of Care Document ---
Author Organization [facility] [place] [facility] Address [id number] [place] [address] Phone Care Team Providers Care Carrier Operator Name Role Phone Unavailable Unavailable Unavailable Allergies, Adverse Reactions, Alerts Substance Reaction Status Criticality Penicillins Hives Active No Information Medications Medication Instructions Dosage Effective Dates (start - stop) Status Comments Cortisporin 3.5 mg-10,000 unit/mL-1 % Ear Drops, Susp Apply two drops to affected ear(s) every four hours - Active Omnicef 300 mg Cap 1 PO Bid - Active Zithromax 500 mg Tab 1 po qd - No Longer Active antipyrine-benzocai ne 5.4 %-1.4 % Ear Drops 4 drops in affected ear q 6 hour prn pain - No Longer Active Procedures Procedure Date Offic/outpt E&m Estab Low-mod 1 Services provided in an urgent care [facility] Offic/outpt E&m New Mod Sever 1 Service(s) provided in the office during regularly Services provided in an urgent care [facility] Advance Directives Directive Yes / No Effective Date File Name Resuscitation Not Answered N/A N/A Life Support Not Answered N/A N/A Intubation Not Answered N/A N/A Antibiotics Not Answered N/A N/A IV Fluid Support Not Answered N/A N/A Tube Feed Not Answered N/A N/A Other Directive N/A N/A WARNING:The information contained in this section is historical and is provided for information only and does not constitute a legal document or any assurance that the information is still accurate. Please verify the information with the conway of the legal document before using it for clinical purposes. Encounters Encounter Description Practice Location Reason(s) For Visit Diagnoses Date Provider Providers Copied on Encounter Offic/outpt E&m Estab Low-mod [facility], [address], [place], [place], [id number], [place] tel:[phone] [facility] ear discomfort (chief complaint) No Information No Information Offic/outpt E&m [facility], [id number], [place], [place], [id number], [place] tel:[phone] [facility] ear discomfort (chief complaint) No Information No Information Family History Family Member Type Diagnosis Age At Onset No Information Payers Payer name Insurance type Covered democrat ID Authoriza tion(s) No Information Social History Type Description Quantity Date Captured Comments Alcohol Use Details Caffeine Use Details Unknown Tobacco Use Status No Information Smoking Status No Information Sex Female Vital Signs Date / Time: Height Weight BMI Pulse Rate Blood Pressure Temperature Respiratory Rate Body Surface Area Head Circumference Head Circ. Percentile Wt./Narciso. Percentile BMI percentile Pulse Ox Inhaled Ox 2:47 PM 62.00 in 106.580 kg (235.00 lbs) 42.9 8 kg/m eter (2) 80 /min 118/74 mm[Hg] 98.70 F 16 /min 98 % Chief Complaint And Reason For Visit From encounter dated '02/23/2011 14:35'. ear discomfort (chief complaint). Description: Onset 2 Day(s) ago. Severity 4. There was radiation to -ears. Location was right side, The patient describes it as pressure; Relieving factors include -Nothing. Pertinent negatives include -no discharge -no rhinorrhea -no sore throat -no headache -no fever -no swelling. Reason For Referral Reason For Referral No Information History Of Present Illness Encounter Date Complaint History Of Prese nt Illness No Information Functional Status Date Functional Assessmen t No Information Instructions Date Instruction Additional Infor mation No Information Assessments Type Assessment Date No Information Patient Care Teams Name Effective Dates (start - stop) Status Members No Information
--- OUTSIDE RECORDS SUMMARY | 2011-06-28 05:30 | XMS_ITS | Continuity of Care Document ---
Author Organization [email or web address] [facility] Address [address] [place] [address] Phone Care Team Providers Care Assistant Center Manager Name Role Phone Francois CHILD, Nohemy Unavailable Unavailable Procedures Procedure Date PREV VISIT, NEW, AGE 18-39 SPECIMEN HANDLING Advance Directives Directive Yes / No Effective Date File Name No Information Encounters Encounter Description Practice Location Reason(s) For Visit Diagnoses Date Provider Providers Copied on Encounter PREV VISIT, NEW, AGE 18-39 [facility], [address] [place] [address], [id number], tel:[phone] [employer] No Information Francois Slater. [address] [place] [address] [place], [place], [id number]. tel:[phone] Referring Provider: Nohemy Parrish CNP, [facility] [place], [address]. tel:[phone] Family History Family Member Type Diagnosis Age At Onset No Information Payers Payer name Insurance type Covered democrat ID Authoriza thomas(s) [facility] [id number] Social History Type Description Quantity Date Captured Comments Sex Female Smoking Status No Information Chief Complaint And Reason For Visit No Information Reason For Referral Reason For Referral No [...]
--- OUTSIDE RECORDS SUMMARY | 2022-11-22 05:45 | XMS_ITS | Continuity of Care Document ---
Author Organization [employer] [facility] Address [address] [place] [address] [place] [address] Phone Care Team Providers Care Beam Sealer Name Role Phone Sathish SIMMONS, Mack Unavailable Unavailable Procedures Procedure Date POSTOP FOLLOW-UP VISIT POSTOP FOLLOW-UP VISIT LAP GASTRIC BYPASS/DENICE-EN-Y Gastric Bypass OFFICE/OUTPATIENT VISIT, [facility] PSYCH DIAGNOSTIC EVALUATION PSYCL/NRPSYC TST PHY/QHP 1ST PSYCL/NRPSYC TST PHY/QHP EA OFFICE/OUTPATIENT VISIT, [facility] Advance Directives Directive Yes / No Effective Date File Name No Information Encounters Encounter Description Practice Location Reason(s) For Visit Diagnoses Date Provider Providers Copied on Encounter [facility] [employer] [facility], [address] [place] [address], [id number], tel:[phone] [facility] No Information Sathish Giron. [address] [place] [address], [id number], [place]. tel:[phone] Referring Provider: Mack Damon, [address] [place] [address], [address]. tel:[phone] [email or web address] [facility] [employer] [facility], [address] [place] [address], [id number], tel:[phone] [facility] No Information Joseph Asencio. [address] [place] [address] [address], [place], [place], [id number], [place]. tel:[phone] Referring Provider: Elif Ruiz, [address] [place] [address] [address], [place], [address]. tel:[phone] [facility], [address] [place] [address] [address], [place], [place], [id number], [place] tel:[phone] [facility] IP No Information Sathish Giron. [address] [facility] [address], [place], [place], [id number], [place]. tel:[phone] Referring Provider: Mack Damon, [address] [place] [address] [address] [facility], [place], [address]. tel:[phone] [facility] [employer] [facility], [address] [place] [address] [address], [place], [place], [id number], [place] tel:[phone] [facility] IP No Information Joseph Asencio. [address] [facility] [address], [place], [place], [id number], [place]. tel:[phone] Referring Provider: Elif Ruiz, [address] [place] [address] [address], [place], [address]. tel:[phone] OFFICE/OUTPATI ENT VISIT, [facility], [address] [place] [address] [address], [place], [place], [id number], [place] tel:[phone] [facility] No Information Sathish Giron. [address] [facility] [address], [place], [place], [id number], [place]. tel:[phone] Referring Provider: Mack Damon, [address] [place] [address] [address], [place], [address]. tel:[phone] PSYCH DIAGNOSTIC EVALUATION [facility], [address] [place] [address] [address], [place], [place], [id number], [place] tel:[phone] [facility] No Information Brett Matthews. [address] [facility] [address], [place], [place], [id number], [place]. tel:[phone] Referring Provider: Cassie West, [address] [facility] [address], [place], [address]. tel:[phone] OFFICE/OUTPATI ENT VISIT, [facility], [address] [facility] [address], [place], [place], [id number], [place] tel:[phone] [facility] No Information Sathish Giron. [address] [facility] [address], [place], [place], [id number], [place]. tel:[phone] Referring Provider: Mack Damon, [address] [facility] [address], [place], [address]. tel:[phone] Family History Family Member Type Diagnosis Age At Onset No Information Payers Payer name Insurance type Covered republican ID Authoramaurya thomas(s) [facility] [id number] Social History Type Description Quantity Date Captured [...]
--- OUTSIDE RECORDS SUMMARY | 2025-04-13 09:52 | XMS_ITS | CCD ---
Author Organization [facility] Care Team Providers Care Freelance Writer Name Role Phone Bentley Amin Unavailable Unavailable [...] Unavailable BRYANNA BARTH Admitting Unavailable EDWARD MCQUEEN E Primary Care Unavailable FLORO, DIANNE Attending [...] DR BALLARD Consulting Unavailable Richar Edward Unavailable MICK JETT Referring Unavailable EDWARD MCQUEEN Primary Care Unavailable MICK JETT Referring Unavailable EDWARD MCQUEEN Primary Care Unavailable RAQUEL NATION Attending Unavailable MICK JETT Referring Unavailable EDWARD MCQUEEN Primary Care Unavailable RAQUEL NATION Admitting Unavailable TAMIKA, P KANU Attending Unavailable EDWARD MCQUEEN Referring Unavailable EDWARD MCQUEEN E Primary Care Unavailable TAMIKA, P KANU Admitting Unavailable TAMIKA, P KANU Attending Unavailable BALL, EDWARD E Primary Care Unavailable MICK JETT Attending Unavailable BALL, EDWARD E Referring Unavailable BALL, EDWARD E Primary Care Unavailable MICK JETT Referring Unavailable BALL, EDWARD E Primary Care Unavailable Unavailable Primary Care Provider Unavailabl e Ball DO, Edward E Primary Care Provider BETITO SRIVASTAVA Attending Unavailable FLORO, DIANNE Zarate Attending Unavailable FLORO, DIANNE Zarate Attending Unavailable FLORO, DIANNE L Attending Unavailable BALL, EDWARD E Primary Care [...] Unavailable BALL, EDWARD E Primary Care Unavailable DENNIS MOTLEY Referring Unavailable TIESHA, DENNIS Admitting Unavailable TIESHA, DENNIS Attending Unavailable CHRISTIN, FARIBA Attending Unavailable MOUKARBELRAFAEL Attending Unavailable TIESHA, DENNIS Attending Unavailable TIESHA, DENNIS Referring Unavailable Allergies Allergy Classification Reported Allergen(s) Allergy Type Date of Onset Reaction(s) Facility (20 sources) Penicillins; Translations: [PENICILLINS] Propensity to adverse reactions to drug 03-13-20 17 [facility] (20 sources) Penicillin G; Translations: [PENICILLIN G] Drug Allergy 03-13-20 17 [facility] (3 sources) Penicillin Drug Allergy 03-16-20 14 Unknown [employer] Other (4 sources) Substance with penicillin structure and antibacterial mechanism of action (substance) Drug allergy 01-14-20 18 Unknown [employer] Other (3 sources) patient allergy list reviewed by nurse or physicia Propensity to adverse reactions 02-27-20 17 Comment:Done [employer] Other (3 sources) Allergies Reconciled Propensity to adverse reactions Unknown [employer] Other Medications Current Medications Medication Drug [...] (PERCOCET) 5-325 MG per tablet 1 tablet apixaban 5 mg oral tablet (5 sources) Factor Xa Inhibitor Start: 09-30-2024 take 1 tablet by mouth in the morning, then take 1 tablet by mouth at bedtime apixaban (ELIQUIS) 5 mg tablet Indications: Paroxysmal A-fib (CMS-HCC) , TIA (transient ischemic attack) Take 1 tablet (5 mg total) by mouth in the morning and 1 tablet (5 mg total) before bedtime. 60 tablet 6 09/30/2024 Active azithromycin 250 mg oral tablet (3 sources) [...] MCG TABS clopidogrel 75 mg oral tablet (18 sources) P2Y12 Platelet Inhibitor Start: 03-13-2024 End: 11-16-2024 take 1 tablet by mouth in the [...] Start: 10-13-2021 enoxaparin (LOVENOX) injection 60 mg ferrous sulfate 325 mg oral tablet (9 sources) Start: 12-23-2023 take 1 tablet by mouth twice daily Ferrous Sulfate 325 mg (65 mg iron) tablet Active 325 MG PO Twice daily December 23, 2023 12:00am [facility] ferrous sulfate 325 (65 Fe) MG tablet Take 65 mg by mouth in the morning. Take with meals. Active flecainide acetate 100 mg oral tablet (1 source) Antiarrhythmic Start: 11-16-2024 take 1 tablet by mouth every twelve hours Flecainide 100 mg tablet Active 100 MG PO Every 12 hours November 16, 2024 12:00am glucagon (rdna) 1 mg injection (1 [...] Start: 10-12-2021 methylergonovine (METHERGINE) injection 200 mcg 24 hr metoprolol succinate 25 mg extended release oral tablet (5 sources) beta-Adrenergic Danial Start: 10-16-2024 take 1 tablet by mouth once daily Metoprolol Succinate 25 mg tablet extended release 24 hr Active 25 MG PO Daily October 16, 2024 12:00am Start: 09-30-2024 take 1 tablet by cara th every twenty-four hours in the morning metoprolol succinate XL (TOPROL XL) 25 mg 24 hr tablet Take 1 tablet (25 mg total) by mouth in the morning. 90 tablet 3 09/30/2024 Active metroNIDAZOLE 250 mg oral tablet (1 source) [...] Drug Class(es) Dates Sig (Normalized) Sig (Original) aspirin 81 mg delayed release oral tablet (20 sources) Platelet Aggregation Inhibitor, Nonsteroidal Anti-inflammatory Drug Start: 12-23-2023 End: 10-01-2024 Aspirin (Adult Low Dose Aspirin) 81 mg tablet,delayed release (DR/EC) Discontinued 81 MG PO Daily December 23, 2023 12:00am October 01, 2024 8:55am Start: 06-15-2021 End: 10-14-2021 ASPIRIN LOW DOSE 81 MG chewa ble tablet atorvastatin 20 mg oral tablet (11 sources) HMG-CoA Reductase Inhibitor Start: 12-18-2023 End: 08-18-2024 take 1 tablet by mouth once daily Atorvastatin 20 mg tablet Discontinued 20 MG PO Daily December 23, 2023 12:00am August 18, 2024 2:52pm buPROPion hydrochloride 100 mg oral tablet (20 sources) Aminoketone Start: 09-12-2023 End: 08-18-2024 take 1 tablet by mouth twice daily Bupropion Hcl 100 mg tablet Discontinued 100 MG PO Twice daily September 12, 2023 1:00am August 18, 2024 2:51pm Start: 08-26-2023 End: 07-16-2024 buPROPion (Wellbutrin) 100 [...] in dextrose 5 % 50 mL IVPB escitalopram 10 mg oral tablet (18 sources) Serotonin Reuptake Inhibitor Start: 08-18-2024 End: 11-16-2024 take 1 tablet by mouth once daily Escitalopram Oxalate 10 mg tablet Discontinued 10 MG PO Daily August 18, 2024 1:00am November 16, 2024 4:19pm take 1 tablet by mouth once padilla y escitalopram (LEXAPRO) 20 mg tablet Take 20 mg by mouth daily. Active famotidine (PEPCID) 20 mg in sodium chloride (PF) 10 mL injection (1 source) Start: 10-12-2021 End: 10-12-2021 famotidine (PEPCID) 20 mg in sodium chloride (PF) 10 mL injection hydrOXYzine hydrochloride 25 mg oral tablet (11 sources) Antihistamine Start: 12-30-2023 End: 08-18-2024 take 1-2 tablets by mouth once daily at bedtime Hydroxyzine Hcl 25 mg tablet Discontinued 25 MG PO Daily at bedtime December 30, 2023 6:39pm August 18, 2024 2:51pm 1-2 tablets Start: 09-12-2023 End: 12-23-2023 take 1-2 tablets by mouth once daily at bedtime as needed Hydroxyzine Hcl 25 mg tablet Discontinued 0 PO Daily at bedtime as needed September 12, 2023 1:00am December 23, 2023 [...] 10-13-2021 ketorolac (TORADOL) injection 30 mg levonorgestrel 0.770273 mg/hr intrauterine system (10 sources) Progestin, Progestin-containing Intrauterine Device Start: 09-12-2023 End: 08-18-2024 Levonorgestrel 21 mcg/24 hours (8 yrs) 52 mg intrauterine device Discontinued 1 DEVICE INTRAUTERI As Directed September 12, 2023 1:00am August 18, 2024 2:51pm Start: 09-12-2023 Levonorgestrel Active 1 DEVICE INTRAUTERI As Directed September 12, 2023 1:00am 500 ml magnesium sulfate 40 mg/ml injection (3 sources) Start: 10-12-2021 End: 10-12-2021 magnesium sulfate 4000 mg in 100 mL IVPB premix Start: 10-12-2021 End: 10-13-2021 magnesium sulfate (22694 mg/ 500mL infusion) 2 ml metoclopramide 5 [...] Acute cerebrovascular disease Onset: 12-17-2023 Anxiety disorders (10 sources) Generalized anxiety disorder; Translations: [Generalized anxiety disorder] 09-12-2023 Chronic Cardiac and circulatory congenital anomalies (20 sources) Patent foramen ovale; Translations: [Patent foramen ovale] Onset: 02-18-2024 12-20-2023 Chronic Cardiac and circulatory congenital anomalies (6 sources) Personal history of (corrected) congenital malformations of heart and circulatory system; Translations: [H/O cardiac surgery] Onset: 03-23-2024 07-31-2024 Episodic Cardiac dysrhythmias (4 sources) Paroxysmal atrial fibrillation; Translations: [Paroxysmal atrial fibrillation] Onset: 10-16-2024 09-30-2024 Chronic Coma; stupor; and brain damage (2 sources) Loss of consciousness; Translations: [Unspecified coma] 08-27-2024 Episodic Deficiency and other anemia (3 sources) Anemia; Translations: [Anemia, unspecified] 12-21-2023 Episodic Deficiency and other anemia (2 sources) Anemia, unspecified; Translations: [Anemia, unspecified] 12-23-2023 Episodic Diabetes mellitus with complications (11 sources) Type 2 diabetes mellitus; Translations: [Type 2 diabetes mellitus with hyperglycemia] 09-14-2023 Chronic Diabetes mellitus without complication (8 sources) Hyperglycemia, unspecified; Translations: [Hyperglycemia] Onset: 08-21-2022 Episodic Fluid and electrolyte disorders (1 source) Hypokalemia; Translations: [Hypokalemia] 08-18-2024 Episodic Hypertension complicating ; childbirth and the puerperium (4 sources) Hypertension complicating ; Translations: [Unspecified maternal hypertension, first trimester] Onset: 10-12-2021 Chronic Liveborn (1 source) Born by section; Translations: [Single liveborn infant, delivered by ] Episodic Malaise and fatigue (10 sources) Malaise; Translations: [Other malaise] 08-18-2024 Episodic Menstrual disorders (8 sources) Irregular periods; Translations: [Irregular menstruation, unspecified] Onset: 08-24-2024 08-24-2024 Chronic Miscellaneous mental health disorders (12 sources) Mental disorder; Translations: [Mental disorder, not otherwise specified] Chronic Mood disorders (13 sources) Mild recurrent major depression; 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, recurrent, 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 Other circulatory disease (2 sources) Personal history of other diseases of the circulatory system; Translations: [Personal history of other diseases of the circulatory system] Onset: 01-01-2025 Episodic Other endocrine disorders (2 sources) Polycystic [...] Chronic Other nutritional; endocrine; and metabolic disorders (3 sources) Obesity; Translations: [Obesity, unspecified] 09-16-2023 Chronic Other nutritional; endocrine; and metabolic disorders (20 sources) Body mass index 40+ - severely obese; Translations: [Body mass index (BMI) 50.0-59.9, adult] Onset: 07-18-2018 07-18-2018 Chronic Other nutritional; endocrine; and metabolic disorders (1 source) Hypocalcemia; Translations: [Hypocalcemia] 08-18-2024 Chronic Other skin disorders (2 sources) Epidermoid cyst; Translations: [Epidermal cyst] 07-16-2024 Episodic Other upper respiratory infections (10 sources) Acute upper respiratory infection, unspecified; Translations: [Acute pharyngitis, unspecified] Onset: 06-14-2021 Resolved: 06-14-2021 Episodic Residual codes; unclassified (4 sources) Tobacco use; Translations: [TOBACCO USE] Onset: 08-17-2022 Episodic Residual codes; unclassified (2 sources) Other specified postprocedural states; Translations: [Other specified postprocedural states] Onset: 01-01-2025 Episodic Transient cerebral ischemia (20 sources) Transient cerebral ischemia; Translations: [Transient cerebral ischemic attack, unspecified] Onset: 12-26-2023 12-21-2023 Chronic Unclassified (5 sources) No additional problems on file Unclassified (1 source) PFO Onset: 03-13-2024 Past or Other Problems Problem Classification Problem Date Documented Da te Episodic/Chronic Cardiac dysrhythmias (10 sources) Palpitations; Translations: [Palpitations] Onset: 12-26-2023 07-31-2024 Episodic Contraceptive and procreative management (20 sources) Patient encounter status; Translations: [Encounter for sterilization] Onset: 07-15-2018 07-15-2018 Episodic Diabetes or abnormal glucose tolerance complicating ; childbirth; or the puerperium (20 sources) Gestational diabetes mellitus; Translations: [Gestational diabetes mellitus in , diet controlled] Onset: 05-19-2018 Episodic Hypertension complicating ; childbirth and the puerperium (20 sources) Hypertension AND/OR vomiting complicating childbirth AND/OR puerperium; Translations: [Gestational [-induced] hypertension without significant proteinuria, third trimester] Onset: 07-22-2018 07-22-2018 Episodic Immunizations and screening for infectious disease (1 source) Contact with and (suspected) exposure to other viral communicable diseases Onset: 06-14-2021 Resolved: 06-14-2021 Episodic Other lower respiratory disease (2 sources) Shortness of breath; Translations: [Shortness of breath] Onset: 09-02-2024 Episodic Other and delivery including normal (20 sources) Intrauterine ; Translations: [Encounter for supervision of normal , unspecified, unspecified trimester] Onset: 07-29-2018 07-29-2018 Episodic Other skin disorders (20 sources) Acne; Translations: [Acne, unspecified] Onset: 03-13-2017 03-13-2017 Episodic Other skin disorders (20 sources) Abnormal hair finding; Translations: [Other hair color and hair shaft abnormalities] Onset: 03-13-2017 03-13-2017 Episodic Residual codes; unclassified (1 source) Pain, unspecified; Translations: [Pain, unspecified] Onset: 12-18-2023 Episodic Results Test Name Value Interpretation Reference Range Facility Follow-Upon 01-01-2025 Follow-Up [id number] Shamir Lucas 1985 F Date Provider Department Center 01/01/2025 [id number] WALLER Family History Problem Relation Age of Onset Diabetes Mother Hypertension Father Atrial fibrillation Brother Lung cancer Paternal Grandfather Family Status - Relation Status Age at Mother Alive Father Alive Brother Alive Maternal Grandmother Alive Paternal Grandfather Level of Service:77628 PA OFFICE/OUTPATIENT ESTABLISHED MOD MDM 30 MIN Normal [facility] Telephoneon 12-04-2024 Telephone [id number] Shamir Lucas 1985 F Date Provider Department Center 12/04/20241986-[facility]IL [facility] [place] [facility] Family History Problem Relation Age of Onset Diabetes Mother Hypertension Father Atrial fibrillation Brother Lung cancer Paternal Grandfather Family Status - Relation Status Age at Mother Alive Father Alive Brother Alive Maternal Grandmother Alive Paternal Grandfather Reason for Visit and Comments: f/u post ablation [Other] Normal [facility] BILIRUBIN, DIRECTon 11-20-19 25 Magnesium [Mass/Vol] 0.1 mg/dL Normal 0-0.2 [facility] Comment on above: Performed By: #### L [id number] ####[facility] ([facility])[address] [place] [address] BILIRUBIN, TOTALon 5 Bilirubin [Mass/Vol] 0.7 mg/dL Normal 0.3-1.0 [facility] Comment on above: Performed By: #### L [id number] #### [facility] ([facility]) [address] [place] [address] HEMOGLOBINon 11-19-2024 Hemoglobin (Bld) [Mass/Vol] 7.7 g/dL Low 12.0-15.0 [facility] Comment on above: Performed By: #### L [id number] #### [facility] ([facility]) [address] [place] [address] HPon 11-19-2024 [facility] Electrophysiology Consult Note [place] [facility] Reason for visit: HPI: Solange Lucas is a 39 y.o. year old with past medical history of CVA and PFO s/p closure at [facility] (Dr. Kanu Degroot) who has been followed up by the primary care team and where she was evaluated for event of palpitations. The third event monitor that was 1 did not reveal any A-fib. She certainly experienced syncope and had a 14-day Holter monitor that was ordered by Dr. Mcqueen. The episode occurred while she was at a concert. She was subsequently seen by Dr. BURCIAGA and an event monitor is being worn at that time. This revealed the presence of atrial fibrillation with fast ventricular rate as noted on 09/02/2024. There are episodes of atrial flutter also seen PMH: Past Medical History: Diagnosis Date Afib (CMS/HCC) Anxiety Heart valve disease Hyperlipidemia PCOS (polycystic ovarian syndrome) S/P patent foramen ovale closure s/p amplatz occlusion device Stroke (CMS/HCC) Syncope PSH: Past Surgical History: Procedure Laterality Date ADENOIDECTOMY BACK SURGERY SECTION, CLASSIC SECTION, LOW TRANSVERSE LUMBAR LAMINECTOMY 2007 OTHER SURGICAL HISTORY MYRINGOTOMY AND TUBES OTHER SURGICAL HISTORY 02/2024 s/p amplatz occlusion device TONSILECTOMY, ADENOIDECTOMY, BILATERAL MYRINGOTOMY AND TUBES TONSILLECTOMY SH: Social Determinants of Health Tobacco Use: Low Risk (11/19/2024) Patient History Smoking Tobacco Use: Never Smokeless Tobacco Use: Never Passive Exposure: Not on file Alcohol Use: Not on file Financial Resource Strain: Not on file Food Insecurity: No Food Insecurity (07/31/2024) Received from [facility] Hunger Screening Within the past 12 months we worried whether our food would run out before we got money to buy more.: Never True Within the past 12 months the food we bought just didn't last and we didn't have money to get more.: Never True Transportation Needs: Not on file Physical Activity: Not on file Stress: Not on file Social Connections: Not on file Intimate Partner Violence: Unknown (12/18/2023) [place] Safety & Environment Fear of Current or Ex-Partner: Not on file Emotionally Abused: Not on file Physically Abused: Not on file Sexually Abused: Not on file Physically or Sexually Abused: Not on file Depression: Not on file Housing Stability: Not on file Utilities: Not on file Health Literacy: Not on file Allergies: Allergies Allergen Reactions Penicillins Hives Weight: 73.9kg Visit Vitals BP 99/61 Pulse 56 Temp 36.3 ???C (97.3 ???F) (Temporal) Resp 18 Ht 1.575 m (5' 2 ) Wt 72.3 kg (159 lb 6.3 oz) LMP 10/20/2024 (Approximate) Comment: tubal ligation SpO2 100% BMI 29.15 kg/m??? OB Status Having periods Smoking Status Never BSA 1.78 m??? Meds: No current facility-administered medications on file prior to encounter. Current Outpatient Medications on File Prior to Encounter Medication Sig Dispense Refill apixaban (Eliquis) 5 mg tablet Take 1 tablet (5 mg) by mouth two times daily. STOP ASPIRIN 180 tablet 3 atorvastatin (Lipitor) 20 mg tablet Take 20 mg by mouth in the morning. escitalopram (Lexapro) 10 mg tablet Take 1 tablet by mouth in the morning. ferrous sulfate 325 (65 Fe) MG tablet Take 65 mg by mouth with breakfast. flecainide (Tambocor) 100 mg tablet Take 1 tablet (100 mg) by mouth two times daily. 180 tablet 3 metoprolol succinate XL (Toprol-XL) 25 mg 24 hr tablet Take 25 mg by mouth in the morning. aspirin 81 mg EC tablet Take 81 mg by mouth in the morning. buPROPion (Wellbutrin) 100 mg tablet Take 50 mg by mouth twice a day. ROS: Review of Systems Cardiovascular: Positive for chest pain and irregular heartbeat. Respiratory: Positive for shortness of breath (when in A-Fib). Neurological: Positive for dizziness and light-headedness. Physical Exam: Constitutional General Appearance: well-nourished, well-developed, appears stated age Level of Distress: comfortable Eyes KENY Neck Neck: supple, trachea midline Carotid Arteries: bilateral normal upstroke, no bruits Jugular Veins: normal jugular venous pressure Thyroid: not enlarged Lungs Respiratory Effort: unlabored Chest Exam: normal curvature, no thoracic deformity Auscultation: clear, no wheezing, no rales, no rhonchi Cardiovascular Chest wall: Rate And Rhythm: regular Heart Sounds: normal S1, normal s2, no gallop Systolic Murmur: not heard Diastolic Murmur: not heard Extremities: no cyanosis, no edema, no peripheral signs of emboli Peripheral Pulses Radial Pulse: normal Abdomen Inspection and Palpation: soft, non distended, no bruit, non tender Neurologic Gait: normal gait Labs: @LABRESULTS@ No results found for: CHOLESTEROL TOTAL , HDL , LDL CALC , LDL DIRECT , TRIGLYCERIDES , TSH , T3 TOTAL , T4 TOTAL , THYROID PEROXIDASE AB , BNP EKG: (more content not included)... Normal [facility] LACTATE DEHYDROGENASEon 11-05 LACTATE DEHYDROGENASE (U/L) IN SER/PLAS BY LAC->PYR RXN 162 U/L Normal 140-271 [facility] Comment on above: Performed By: #### L [id number] ####[facility] ([facility])[address] [place] [address] NURSNOTEon 11-19-2024 NURSNOTE Discharge reviewed w ith pt. And Erika. Maxi oth verbalized understanding of instructions prior to DC with no questions. OK to DC per Dr. Jiménez. Normal [facility] POCT GLUCOSE METER UNSOLICIT ED RESULTSon 11-19-2024 Glucose [Mass/Vol] 83 mg/dL Normal 70-105 [facility] Comment on above: Order Comment: Waive d Testing in the ED is performed under the ED CLIA certificate #[id number]. Result Comment: dhol as Performed By: #### L [id number] ####[facility] ([facility])[address] [place] [address] PROTIME-INRon 11-19-2024 INR IN PPP BY COAGULATION ASSAY 1.15 High 0.90-1.10 [facility] Comment on above: Result Comment: ACCC P RECOMMENDED INR FOR WARFARIN THERAPY CONDITION INR PROPHYLAXIS OF VENOUS THROMBOSIS 2-3 (HIGH-RISK SURGERY) TREATMENT OF VENOUS THROMBOSIS 2-3 TREATMENT OF PULMONARY EMBOLISM 2-3 PREVENTION OF SYSTEMIC EMBOLISM: 2-3 ACUTE MYOCARDIAL INFARCTION TISSUE HEART VALVES VALVULAR HEART DISEASE ATRIAL FIBRILLATION RECURRENT SYSTEMIC EMBOLISM MECHANICAL HEART VALVE 2.5-3.5 FROM: ORAL ANTICOAGULANTS. MECHANISM OF ACTION, CLINICAL EFFECTIVENESS, AND OPTIMAL THERAPEUTIC RANGE. CHEST 1995;108:231S-246S. Performed By: #### L [id number] #### [facility] ([facility]) [address] [place] [address] PROTHROMBIN TIME (PT) IN PPP BY COAGULATION ASSAY 14.7 Seconds Normal 12.3-14.8 [facility] Comment on above: Performed By: #### L [id number] #### [facility] ([facility]) [address] [facility] [place] [address] Prep for Procedureon 025 Prep for Procedure [id number] Shamir Lucas 1985 F Date Provider Department Center 11/19/20241986-AKHIL [facility] Family History Problem Relation Age of Onset Diabetes Mother Hypertension Father Atrial fibrillation Brother Lung cancer Paternal Grandfather Family Status - Relation Status Age at Mother Alive Father Alive Brother Alive Maternal Grandmother Alive Paternal Grandfather Normal [facility] Basophils Auto (Bld) [#/Vol] on 11-13-2024 Basophils (Bld) [#/Vol] Automated basophil count 0.0-0.1 [facility] Basophils/100 WBC Auto (Bld) on 11-13-2024 Basophils/100 WBC (Bld) Automated basophil % 0.2-2.0 [facility] Eosinophils/100 WBC Auto (Bl d)on 11-13-2024 Eosinophils/100 WBC (Bld) Automated eosinophil % Low 0.9-7.0 [facility] Erythrocyte distribution wid th Auto (RBC) [Ratio]on 11-13-2024 Erythrocyte distribution width (RBC) [Ratio] Erythrocyte distribution width [Ratio] by Automated count High 11.0-15.0 [facility] Estimated glomerular filtrat ion rate (GFR) non- Americanon 11-13-2024 GFR/1.73 sq M.predicted among non-blacks MDRD (S/P/Bld) [Vol rate/Area] Estimated glomerular filtration rate (GFR) non- >=60 mL/min/1.7 3m 2 [facility] Hematocrit Auto (Bld) [Volum e fraction]on 11-13-2024 Hematocrit (Bld) [Volume fraction] Hematocrit [Volume Fraction] of Blood by Automated count Low 36.0-48.0 [facility] Hemoglobin [Mass/volume] in Bloodon 11-13-2024 Hemoglobin (Bld) [Mass/Vol] Hemoglobin [Mass/volume] in Blood Low 12.0-16.0 [facility] Laboratory - Chemistry and C hemistry - challengeon 11-13-2024 Calcium [Mass/Vol] 8.3 mg/dL Low 8.5-10.1 [facility] Chloride [Moles/Vol] 98 mmol/L 98-107 [facility] CO2 [Moles/Vol] 27.4 mmol/L 21.0-32.0 [facility] Creatinine [Mass/Vol] 0.68 mg/dL 0.55-1.02 [facility] GFR/1.73 sq M.predicted MDRD (S/P/Bld) [Vol rate/Area] mL/min/{1.73_m2} >=60 mL/min/1.7 3m 2 [facility] Glucose [Mass/Vol] 157 mg/dL High 74-106 [facility] Potassium [Moles/Vol] 4.0 mmol/L 3.5-5.1 [facility] Sodium [Moles/Vol] 132 mmol/L Low 136-145 [facility] Urea nitrogen [Mass/Vol] 12.0 mg/dL 7.0-18.0 [facility] Urea nitrogen/Creatinine [Mass ratio] 17.6 mg/mg [facility] - Hematology and Cell countson 11-13-2024 Immature granulocytes/100 WBC (Bld) 0.3 % 0.0-0.5 [facility] Leukocytes [#/volume] correc alfredito for nucleated erythrocytes in Blood by Automated counon 11-13-2024 WBC corrected for nucl RBC Auto (Bld) [#/Vol] Leukocytes [#/volume] corrected for nucleated erythrocytes in Blood by Automated coun 4.0-11.0 [facility] Lymphocytes Auto (Bld) [#/Vo l]on 11-13-2024 Lymphocytes (Bld) [#/Vol] Lymphocytes [#/volume] in Blood by Automated count 1.2-3.8 [facility] Lymphocytes/100 WBC Auto (Bl d)on 11-13-2024 Lymphocytes/100 WBC (Bld) Lymphocytes/100 leukocytes in Blood by Automated count Low 20.5-60.0 [facility] MCH Auto (RBC) [Entitic mass ]on 11-13-2024 MCH (RBC) [Entitic mass] MCH [Entitic mass] by Automated count Low 26.7-34.0 [facility] MCHC Auto (RBC) [Mass/Vol]on 11-13-2024 MCHC (RBC) [Mass/Vol] MCHC [Mass/volume] by Automated count Low 29.9-35.2 [facility] MCV Auto (RBC) [Entitic vol] on 11-13-2024 MCV (RBC) [Entitic vol] MCV [Entitic volume] by Automated count Low 81.0-99.0 [facility] Monocytes Auto (Bld) [#/Vol] on 11-13-2024 Monocytes (Bld) [#/Vol] Automated blood monocyte count 0.3-0.8 [facility] Monocytes/100 WBC Auto (Bld) on 11-13-2024 Monocytes/100 WBC (Bld) Automated monocyte % 1.7-12.0 [facility] Neutrophils Auto (Bld) [#/Vo l]on 11-13-2024 Neutrophils (Bld) [#/Vol] Neutrophils [#/volume] in Blood by Automated count 1.4-6.5 [facility] Neutrophils/100 WBC Auto (Bl d)on 11-13-2024 Neutrophils/100 WBC (Bld) Automated neutrophil % 43.0-75.0 [facility] No Panel Informationon 11-13 Eosinophils # (Auto) 0.0 10 3/uL 0.0-0.7 [facility] Immature Granulocyte # (Auto) 0.02 10 3/uL 0.00-0.03 [facility] Platelet mean volume Auto (B ld) [Entitic vol]on 11-13-2024 Platelet mean volume (Bld) [Entitic vol] Platelet mean volume [Entitic volume] in Blood by Automated count 9.5-13.5 [facility] Platelets Auto (Bld) [#/Vol] on 11-13-2024 Platelets (Bld) [#/Vol] Platelets [#/volume] in Blood by Automated count 150-450 [facility] RBC Auto (Bld) [#/Vol]on RBC (Bld) [#/Vol] Erythrocytes [#/volu me] in Blood by Automated count 4.20-5.40 [facility] Serum or plasma anion gap de terminationon 11-13-2024 Anion gap [Moles/Vol] Serum or plasma anion gap determination [facility] Prep for Procedureon 025 Prep for Procedure [id number] Shamir Lucas 1985 Provider Department Center 10/16/2024 1987-AKHIL [facility] Family History Problem Relation Age of Onset Diabetes Mother Hypertension Father Atrial fibrillation Brother Lung cancer Paternal Grandfather Family Status - Relation Status Age at Mother Alive Father Alive Brother Alive Maternal Grandmother Alive Paternal Grandfather Normal [facility] Telephoneon 10-15-2024 Telephone [id number] Shamir Lucas 1985 Provider Department Center 10/15/2024 [facility]ER [facility] Family History Problem Relation Age of Onset Diabetes Mother Hypertension Father Atrial fibrillation Brother Lung cancer Paternal Grandfather Family Status - Relation Status Age at Mother Alive Father Alive Brother Alive Maternal Grandmother Alive Paternal Grandfather Normal [facility] Office Visiton 10-13-2024 Follow-up visit [id number] Shamir Lucas 1985 Provider Department Center 10/13/2024 241-DENNIS MOTLEY MADDY [facility] Family History Problem Relation Age of Onset Diabetes Mother Hypertension Father Atrial fibrillation Brother Lung cancer Paternal Grandfather Family Status - Relation Status Age at Mother Alive Father Alive Brother Alive Maternal Grandmother Alive Paternal Grandfather Level of Service:67960 PA OFFICE/OUTPATIENT NEW MODERATE MDM 45 MINUTES Normal [facility] Orders Onlyon 10-13-2024 Orders Only [id number] Shamir Lucas 1985 Date Provider Department Center 10/13/2024 DORA MINER MADDY [facility] Family History Problem Relation Age of Onset Diabetes Mother Hypertension Father Atrial fibrillation Brother Lung cancer Paternal Grandfather Family Status - Relation Status Age at Mother Alive Father Alive Brother Alive Maternal Grandmother Alive Paternal Grandfather Normal [facility] Basophils Auto (Bld) [#/Vol] on 09-02-2024 Basophils (Bld) [#/Vol] Automated basophil count 0.0-0.1 [facility] Basophils/100 WBC Auto (Bld) on 09-02-2024 Basophils/100 WBC (Bld) Automated basophil % 0.2-2.0 [facility] Eosinophils/100 WBC Auto (Bl d)on 09-02-2024 Eosinophils/100 WBC (Bld) Automated eosinophil % 0.9-7.0 [facility] Erythrocyte distribution wid th Auto (RBC) [Ratio]on 09-02-2024 Erythrocyte distribution width (RBC) [Ratio] Erythrocyte distribution width [Ratio] by Automated count High 11.0-15.0 [facility] Hematocrit Auto (Bld) [Volum e fraction]on 09-02-2024 Hematocrit (Bld) [Volume fraction] Hematocrit [Volume Fraction] of Blood by Automated count Low 36.0-48.0 [facility] Hemoglobin [Mass/volume] in Bloodon 09-02-2024 Hemoglobin (Bld) [Mass/Vol] Hemoglobin [Mass/volume] in Blood Low 12.0-16.0 [facility] INR in Platelet poor plasma by Coagulation assayon 09-02-2024 INR Coag (PPP) [Relative time] INR in Platelet poor plasma by Coagulation assay [facility] Comment on above: DESIRED INR:2.0-3.0 CONDITIONS NOT LISTED BELOW2.5-3.5 FOR PROSTHETIC HEART VALVE REPLACEMENT2.5-3.5 RECURRENT THROMBOSIS Iron binding capacity [Mass/ volume] in Serum or Plasmaon 09-02-2024 Iron binding capacity [Mass/Vol] Iron binding capacity [Mass/volume] in Serum or Plasma 250.0-450. 0 [facility] Iron saturation [Mass Fracti on] in Serum or Plasmaon 09-02-2024 Iron saturation [Mass fraction] Iron saturation [Mass Fraction] in Serum or Plasma [facility] Laboratory - Chemistry and C hemistry - challengeon 09-02-2024 Cobalamin (Vitamin B12) [Mass/Vol] 285 pg/mL [id number] [facility] Comment on above: Performed at: - [address] [id number] Director: Eamon Doshi PhD, Phone: [phone] Ferritin [Mass/Vol] 6.0 ng/mL Low 8.0-252.0 [facility] Iron [Mass/Vol] 14.0 ug/dL Low 50.0-170.0 [facility] Magnesium [Mass/Vol] 2.0 mg/dL 1.8-2.4 [facility] TSH Qn 1.138 m[IU]/L 0.358-3.74 0 [facility] - Hematology and Cell countson 09-02-2024 Immature granulocytes/100 WBC (Bld) 0.4 % 0.0-0.5 [facility] Leukocytes [#/volume] correc alfredito for nucleated erythrocytes in Blood by Automated counon 09-02-2024 WBC corrected for nucl RBC Auto (Bld) [#/Vol] Leukocytes [#/volume] corrected for nucleated erythrocytes in Blood by Automated coun 4.0-11.0 [facility] Lymphocytes Auto (Bld) [#/Vo l]on 09-02-2024 Lymphocytes (Bld) [#/Vol] Lymphocytes [#/volume] in Blood by Automated count 1.2-3.8 [facility] Lymphocytes/100 WBC Auto (Bl d)on 09-02-2024 Lymphocytes/100 WBC (Bld) Lymphocytes/100 leukocytes in Blood by Automated count 20.5-60.0 [facility] MCH Auto (RBC) [Entitic mass ]on 09-02-2024 MCH (RBC) [Entitic mass] MCH [Entitic mass] by Automated count Low 26.7-34.0 [facility] MCHC Auto (RBC) [Mass/Vol]on 09-02-2024 MCHC (RBC) [Mass/Vol] MCHC [Mass/volume] by Automated count 29.9-35.2 [facility] MCV Auto (RBC) [Entitic vol] on 09-02-2024 MCV (RBC) [Entitic vol] MCV [Entitic volume] by Automated count Low 81.0-99.0 [facility] Monocytes Auto (Bld) [#/Vol] on 09-02-2024 Monocytes (Bld) [#/Vol] Automated blood monocyte count 0.3-0.8 [facility] Monocytes/100 WBC Auto (Bld) on 09-02-2024 Monocytes/100 WBC (Bld) Automated monocyte % 1.7-12.0 [facility] Neutrophils Auto (Bld) [#/Vo l]on 09-02-2024 Neutrophils (Bld) [#/Vol] Neutrophils [#/volume] in Blood by Automated count 1.4-6.5 [facility] Neutrophils/100 WBC Auto (Bl d)on 09-02-2024 Neutrophils/100 WBC (Bld) Automated neutrophil % 43.0-75.0 [facility] No Panel Informationon 09-02 Eosinophils # (Auto) 0.1 10 3/uL 0.0-0.7 [facility] Folate 19.60 ng/mL 8.60-58.90 [facility] Immature Granulocyte # (Auto) 0.02 10 3/uL 0.00-0.03 [facility] Troponin I High Sensitivity 4.8 pg/mL 4.0-51.3 [facility] Comment on above: CUT-OFF POINTS HAVE [...] IN CONJUNCTIONWITH OTHER DIAGNOSTIC AND CLINICAL INFORMATION. Office Visiton 09-02-2024 Follow-up visit [id number] Shamir Lucas 1985 F Date Provider Department Center 09/02/2024 Sunil-RAFAEL PALOMINO MADDY [facility] Family History Problem Relation Age of Onset Diabetes Mother Hypertension Father Atrial fibrillation Brother Lung cancer Paternal Grandfather Family Status - Relation Status Age at Mother Father Brother Maternal Grandmother Alive Paternal Grandfather Level of Service:25453 PA OFFICE/OUTPATIENT ESTABLISHED MOD MDM 30 MIN Normal [facility] Platelet mean volume Auto (B ld) [Entitic vol]on 09-02-2024 Platelet mean volume (Bld) [Entitic vol] Platelet mean volume [Entitic volume] in Blood by Automated count 9.5-13.5 [facility] Platelets Auto (Bld) [#/Vol] on 09-02-2024 Platelets (Bld) [#/Vol] Platelets [#/volume] in Blood by Automated count 150-450 [facility] Prothrombin time (PT)on 08-09 PT Coag (PPP) [Time] Prothrombin time (PT) 9.0-11.6 [facility] RBC Auto (Bld) [#/Vol]on RBC (Bld) [#/Vol] Erythrocytes [#/volu me] in Blood by Automated count 4.20-5.40 [facility] Basophils Auto (Bld) [#/Vol] on 08-17-2024 Basophils (Bld) [#/Vol] Automated basophil count 0.0-0.1 [facility] Basophils/100 WBC Auto (Bld) on 08-17-2024 Basophils/100 WBC (Bld) Automated basophil % 0.2-2.0 [facility] Eosinophils/100 WBC Auto (Bl d)on 08-17-2024 Eosinophils/100 WBC (Bld) Automated eosinophil % Low 0.9-7.0 [facility] Erythrocyte distribution wid th Auto (RBC) [Ratio]on 08-17-2024 Erythrocyte distribution width (RBC) [Ratio] Erythrocyte distribution width [Ratio] by Automated count High 11.0-15.0 [facility] Estimated glomerular filtrat ion rate (GFR) non- Americanon 08-17-2024 GFR/1.73 sq M.predicted among non-blacks MDRD (S/P/Bld) [Vol rate/Area] Estimated glomerular filtration rate (GFR) non- >=60 mL/min/1.7 3m 2 [facility] Hematocrit Auto (Bld) [Volum e fraction]on 08-17-2024 Hematocrit (Bld) [Volume fraction] Hematocrit [Volume Fraction] of Blood by Automated count Low 36.0-48.0 [facility] Hemoglobin [Mass/volume] in Bloodon 08-17-2024 Hemoglobin (Bld) [Mass/Vol] Hemoglobin [Mass/volume] in Blood Low 12.0-16.0 [facility] - Chemistry and C hemistry - challengeon 08-17-2024 Calcium [Mass/Vol] 7.9 mg/dL Low 8.5-10.1 [facility] Chloride [Moles/Vol] 104 mmol/L 98-107 [facility] CO2 [Moles/Vol] 29.6 mmol/L 21.0-32.0 [facility] Creatinine [Mass/Vol] 0.60 mg/dL 0.55-1.02 [facility] GFR/1.73 sq M.predicted MDRD (S/P/Bld) [Vol rate/Area] mL/min/{1.73_m2} >=60 mL/min/1.7 3m 2 [facility] Glucose [Mass/Vol] 105 mg/dL 74-106 [facility] Potassium [Moles/Vol] 3.4 mmol/L Low 3.5-5.1 [facility] Sodium [Moles/Vol] 141 mmol/L 136-145 [facility] Urea nitrogen [Mass/Vol] 10.0 mg/dL 7.0-18.0 [facility] Urea nitrogen/Creatinine [Mass ratio] 16.7 mg/mg [facility] - Hematology and Cell countson 08-17-2024 Immature granulocytes/100 WBC (Bld) 0.2 % 0.0-0.5 [facility] Leukocytes [#/volume] correc alfredito for nucleated erythrocytes in Blood by Automated counon 08-17-2024 WBC corrected for nucl RBC Auto (Bld) [#/Vol] Leukocytes [#/volume] corrected for nucleated erythrocytes in Blood by Automated coun 4.0-11.0 [facility] Lymphocytes Auto (Bld) [#/Vo l]on 08-17-2024 Lymphocytes (Bld) [#/Vol] Lymphocytes [#/volume] in Blood by Automated count 1.2-3.8 [facility] Lymphocytes/100 WBC Auto (Bl d)on 08-17-2024 Lymphocytes/100 WBC (Bld) Lymphocytes/100 leukocytes in Blood by Automated count 20.5-60.0 [facility] MCH Auto (RBC) [Entitic mass ]on 08-17-2024 MCH (RBC) [Entitic mass] MCH [Entitic mass] by Automated count Low 26.7-34.0 [facility] MCHC Auto (RBC) [Mass/Vol]on 08-17-2024 MCHC (RBC) [Mass/Vol] MCHC [Mass/volume] by Automated count Low 29.9-35.2 [facility] MCV Auto (RBC) [Entitic vol] on 08-17-2024 MCV (RBC) [Entitic vol] MCV [Entitic volume] by Automated count Low 81.0-99.0 [facility] Monocytes Auto (Bld) [#/Vol] on 08-17-2024 Monocytes (Bld) [#/Vol] Automated blood monocyte count 0.3-0.8 [facility] Monocytes/100 WBC Auto (Bld) on 08-17-2024 Monocytes/100 WBC (Bld) Automated monocyte % 1.7-12.0 [facility] Neutrophils Auto (Bld) [#/Vo l]on 08-17-2024 Neutrophils (Bld) [#/Vol] Neutrophils [#/volume] in Blood by Automated count 1.4-6.5 [facility] Neutrophils/100 WBC Auto (Bl d)on 08-17-2024 Neutrophils/100 WBC (Bld) Automated neutrophil % Low 43.0-75.0 [facility] No Panel Informationon 08-17 Bedside Influenza Type A Antigen Negative [facility] Comment on above: Negative for Flu A p rotein antigen. Infection due to Flu Acannot be ruled out. Flu A antigen in the sample may bebelow the detection limit of the test. Bedside Influenza Type B Antigen Negative [facility] Comment on above: Negative for Flu B p rotein antigen. Infection due to Flu Bcannot be ruled out. Flu B antigen in the sample may bebelow the detection limit of the test. Eosinophils # (Auto) 0.0 10 3/uL 0.0-0.7 [facility] Immature Granulocyte # (Auto) 0.01 10 3/uL 0.00-0.03 [facility] Platelet mean volume Auto (B ld) [Entitic vol]on 08-17-2024 Platelet mean volume (Bld) [Entitic vol] Platelet mean volume [Entitic volume] in Blood by Automated count 9.5-13.5 [facility] Platelets Auto (Bld) [#/Vol] on 08-17-2024 Platelets (Bld) [#/Vol] Platelets [#/volume] in Blood by Automated count 150-450 [facility] RBC Auto (Bld) [#/Vol]on RBC (Bld) [#/Vol] Erythrocytes [#/volu me] in Blood by Automated count 4.20-5.40 [facility] Serum or plasma anion gap de terminationon 08-17-2024 Anion gap [Moles/Vol] Serum or plasma anion gap determination [facility] PO[facility] 07-31-2024 [facility] [employer] ACT Diatomaceous earth induc ed (Bld)on 03-13-2024 [facility] CLOT TIME LR 298 sec High 89-169 [facility] Comment on above: Performed By: #### [id number] #### [facility] ([id number]) [address] [place] [address] Basophils Auto (Bld) [#/Vol] on 12-18-2023 Basophils (Bld) [#/Vol] 0.0 10 3/uL 0.0-0.1 [facility] Basophils/100 WBC Auto (Bld) on 12-18-2023 Basophils/100 WBC (Bld) 0.7 % 0.2-2.0 [facility] Eosinophils/100 WBC Auto (Bl d)on 12-18-2023 Eosinophils/100 WBC (Bld) 1.5 % 0.9-7.0 [facility] Erythrocyte distribution wid th Auto (RBC) [Ratio]on 12-18-2023 Erythrocyte distribution width (RBC) [Ratio] 18.0 % 11.0-15.0 [facility] Estimated glomerular filtrat ion rate (GFR) non- Americanon 12-18-2023 GFR/1.73 sq M.predicted among non-blacks MDRD (S/P/Bld) [Vol rate/Area] mL/min/{1.73_m2} >=60 [facility] Globulin Calc (S) [Mass/Vol] on 12-18-2023 Globulin (S) [Mass/Vol] 3.1 g/dL [facility] Hematocrit Auto (Bld) [Volum e fraction]on 12-18-2023 Hematocrit (Bld) [Volume fraction] 27.9 % 36.0-48.0 [facility] Hemoglobin [Mass/volume] in Bloodon 12-18-2023 Hemoglobin (Bld) [Mass/Vol] 8.2 g/dL 12.0-16.0 [facility] - Chemistry and C hemistry - challengeon 12-18-2023 Albumin [Mass/Vol] 2.8 g/dL 3.4-5.0 [facility] ALP [Catalytic activity/Vol] 67 U/L 46-116 [facility] ALT [Catalytic activity/Vol] 14 U/L 14-59 [facility] AST [Catalytic activity/Vol] 8 U/L 15-37 [facility] Bilirubin [Mass/Vol] 0.4 mg/dL 0.2-1.0 [facility] Calcium [Mass/Vol] 7.8 mg/dL 8.5-10.1 [facility] Chloride [Moles/Vol] 108 mmol/L 98-107 [facility] CO2 [Moles/Vol] 25.7 mmol/L 21.0-32.0 [facility] Creatinine [Mass/Vol] 0.60 mg/dL 0.55-1.02 [facility] GFR/1.73 sq M.predicted MDRD (S/P/Bld) [Vol rate/Area] mL/min/{1.73_m2} >=60 [facility] Glucose [Mass/Vol] 75 mg/dL 74-106 [facility] Potassium [Moles/Vol] 3.7 mmol/L 3.5-5.1 [facility] Protein [Mass/Vol] 5.9 g/dL 6.4-8.2 [facility] Sodium [Moles/Vol] 139 mmol/L 136-145 [facility] Urea nitrogen [Mass/Vol] 9.0 mg/dL 7.0-18.0 [facility] Urea nitrogen/Creatinine [Mass ratio] 15.0 mg/mg [facility] - Hematology and Cell countson 12-18-2023 Immature granulocytes/100 WBC (Bld) 0.2 % 0.0-0.5 [facility] Leukocytes [#/volume] correc alfredito for nucleated erythrocytes in Blood by Automated counon 12-18-2023 WBC corrected for nucl RBC Auto (Bld) [#/Vol] 5.9 10 3/uL 4.0-11.0 [facility] Lymphocytes Auto (Bld) [#/Vo l]on 12-18-2023 Lymphocytes (Bld) [#/Vol] 2.4 10 3/uL 1.2-3.8 [facility] Lymphocytes/100 WBC Auto (Bl d)on 12-18-2023 Lymphocytes/100 WBC (Bld) 41.3 % 20.5-60.0 [facility] MCH Auto (RBC) [Entitic mass ]on 12-18-2023 MCH (RBC) [Entitic mass] 21.0 pg 26.7-34.0 [facility] MCHC Auto (RBC) [Mass/Vol]on 12-18-2023 MCHC (RBC) [Mass/Vol] 29.4 g/dL 29.9-35.2 [facility] MCV Auto (RBC) [Entitic vol] on 12-18-2023 MCV (RBC) [Entitic vol] 71.5 fL 81.0-99.0 [facility] Monocytes Auto (Bld) [#/Vol] on 12-18-2023 Monocytes (Bld) [#/Vol] 0.4 10 3/uL 0.3-0.8 [facility] Monocytes/100 WBC Auto (Bld) on 12-18-2023 Monocytes/100 WBC (Bld) 6.6 % 1.7-12.0 [facility] Neutrophils Auto (Bld) [#/Vo l]on 12-18-2023 Neutrophils (Bld) [#/Vol] 2.9 10 3/uL 1.4-6.5 [facility] Neutrophils/100 WBC Auto (Bl d)on 12-18-2023 Neutrophils/100 WBC (Bld) 49.7 % 43.0-75.0 [facility] No Panel Informationon 12-17 Eosinophils # (Auto) 0.1 10 3/uL 0.0-0.7 [facility] Immature Granulocyte # (Auto) 0.01 10 3/uL 0.00-0.03 [facility] Platelet mean volume Auto (B ld) [Entitic vol]on 12-18-2023 Platelet mean volume (Bld) [Entitic vol] 10.4 fL 9.5-13.5 [facility] Platelets Auto (Bld) [#/Vol] on 12-18-2023 Platelets (Bld) [#/Vol] 247 10 3/uL 150-450 [facility] RBC Auto (Bld) [#/Vol]on RBC (Bld) [#/Vol] 3.90 10 6/uL 4.20-5.40 [facility] Serum or plasma albumin/glob ulin mass ratioon 12-18-2023 Albumin/Globulin [Mass ratio] 0.9 {ratio} [facility] Serum or plasma anion gap de terminationon 12-18-2023 Anion gap [Moles/Vol] 9.0 mmol/L [facility] Activated partial thrombopla stin time (aPTT) in platelet poor plasma by coagulation aon 12-17-2023 aPTT Coag (PPP) [Time] 26.5 s 22.3-36.2 [facility] Basophils Auto (Bld) [#/Vol] on 12-17-2023 Basophils (Bld) [#/Vol] 0.0 10 3/uL 0.0-0.1 [facility] Basophils/100 WBC Auto (Bld) on 12-17-2023 Basophils/100 WBC (Bld) 0.7 % 0.2-2.0 [facility] Cholesterol in LDL Calc [Mas s/Vol]on 12-17-2023 Cholesterol in LDL [Mass/Vol] 64.4 mg/dL [facility] Comment on above: <100 mg/dl [id number] 0-129 mg/dl NEAR OR ABOVE [id number] mg/dl BORDERLINE [id number] mg/dl HIGH>190 mg/dl VERY HIGH Cholesterol in VLDL Calc [Ma ss/Vol]on 12-17-2023 Cholesterol in VLDL [Mass/Vol] 10.6 mg/dL [facility] Eosinophils/100 WBC Auto (Bl d)on 12-17-2023 Eosinophils/100 WBC (Bld) 1.5 % 0.9-7.0 [facility] Erythrocyte distribution wid th Auto (RBC) [Ratio]on 12-17-2023 Erythrocyte distribution width (RBC) [Ratio] 17.8 % 11.0-15.0 [facility] Estimated glomerular filtrat ion rate (GFR) non- Americanon 12-17-2023 GFR/1.73 sq M.predicted among non-blacks MDRD (S/P/Bld) [Vol rate/Area] mL/min/{1.73_m2} >=60 [facility] Globulin Calc (S) [Mass/Vol] on 12-17-2023 Globulin (S) [Mass/Vol] 3.6 g/dL [facility] Glucose mean value [Mass/vol ume] in Blood Estimated from glycated hemoglobinon 12-17-2023 Average glucose Estimated from glycated hemoglobin (Bld) [Mass/Vol] 114 mg/dL [facility] Hematocrit Auto (Bld) [Volum e fraction]on 12-17-2023 Hematocrit (Bld) [Volume fraction] 31.4 % 36.0-48.0 [facility] Hemoglobin [Mass/volume] in Bloodon 12-17-2023 Hemoglobin (Bld) [Mass/Vol] 9.2 g/dL 12.0-16.0 [facility] INR in Platelet poor plasma by Coagulation assayon 12-17-2023 INR Coag (PPP) [Relative time] 1.07 {INR} [facility] Comment on above: DESIRED INR:2.0-3.0 CONDITIONS NOT LISTED BELOW2.5-3.5 FOR PROSTHETIC HEART VALVE REPLACEMENT2.5-3.5 RECURRENT THROMBOSIS Iron binding capacity [Mass/ volume] in Serum or Plasmaon 06-11-2024 Iron binding capacity [Mass/Vol] 443.0 ug/dL 250.0-450. 0 [facility] Iron saturation [Mass Fracti on] in Serum or Plasmaon 12-17-2023 Iron saturation [Mass fraction] 3.6 % [facility] - Chemistry and C hemistry - challengeon 12-17-2023 Albumin [Mass/Vol] 3.3 g/dL 3.4-5.0 [facility] ALP [Catalytic activity/Vol] 79 U/L 46-116 [facility] ALT [Catalytic activity/Vol] 17 U/L 14-59 [facility] AST [Catalytic activity/Vol] 16 U/L 15-37 [facility] Bilirubin [Mass/Vol] 0.6 mg/dL 0.2-1.0 [facility] Calcium [Mass/Vol] 8.1 mg/dL 8.5-10.1 [facility] Chloride [Moles/Vol] 105 mmol/L 98-107 [facility] Cholesterol [Mass/Vol] 125 mg/dL <=200 [facility] Cholesterol in HDL [Mass/Vol] 50 mg/dL 40-60 [facility] Comment on above: > or =60 mg/dl - LOW CARDIOVASCULAR RISK<40 mg/dl - HIGH CARDIOVASCULAR RISK CO2 [Moles/Vol] 27.0 mmol/L 21.0-32.0 [facility] Cobalamin (Vitamin B12) [Mass/Vol] 209.0 pg/mL 193.0-986. 0 [facility] Creatinine [Mass/Vol] 0.70 mg/dL 0.55-1.02 [facility] Ferritin [Mass/Vol] 6.0 ng/mL 8.0-252.0 [facility] GFR/1.73 sq M.predicted MDRD (S/P/Bld) [Vol rate/Area] mL/min/{1.73_m2} >=60 [facility] Glucose [Mass/Vol] 94 mg/dL 74-106 [facility] Iron [Mass/Vol] 16.0 ug/dL 50.0-170.0 [facility] Magnesium [Mass/Vol] 2.4 mg/dL 1.8-2.4 [facility] Potassium [Moles/Vol] 3.5 mmol/L 3.5-5.1 [facility] Protein [Mass/Vol] 6.9 g/dL 6.4-8.2 [facility] Sodium [Moles/Vol] 141 mmol/L 136-145 [facility] Triglyceride [Mass/Vol] 53 mg/dL <=150 [facility] TSH Qn 1.336 m[IU]/L 0.358-3.74 0 [facility] Urea nitrogen [Mass/Vol] 10.0 mg/dL 7.0-18.0 [facility] Urea nitrogen/Creatinine [Mass ratio] 14.3 mg/mg [facility] - Hematology and Cell countson 12-17-2023 HbA1c (Bld) [Mass fraction] 5.6 % 4.5-6.2 [facility] Comment on above: ADA RECOMMENDED LIMI T 4.0 - 6.0ADA THERAPEUTIC TARGET < 7.0ACTION SUGGESTED> 7.0 Immature granulocytes/100 WBC (Bld) 0.2 % 0.0-0.5 [facility] Leukocytes [#/volume] correc alfredito for nucleated erythrocytes in Blood by Automated counon 12-17-2023 WBC corrected for nucl RBC Auto (Bld) [#/Vol] 5.5 10 3/uL 4.0-11.0 [facility] Lymphocytes Auto (Bld) [#/Vo l]on 12-17-2023 Lymphocytes (Bld) [#/Vol] 2.5 10 3/uL 1.2-3.8 [facility] Lymphocytes/100 WBC Auto (Bl d)on 12-17-2023 Lymphocytes/100 WBC (Bld) 46.2 % 20.5-60.0 [facility] MCH Auto (RBC) [Entitic mass ]on 12-17-2023 MCH (RBC) [Entitic mass] 20.9 pg 26.7-34.0 [facility] MCHC Auto (RBC) [Mass/Vol]on 12-17-2023 MCHC (RBC) [Mass/Vol] 29.3 g/dL 29.9-35.2 [facility] MCV Auto (RBC) [Entitic vol] on 12-17-2023 MCV (RBC) [Entitic vol] 71.4 fL 81.0-99.0 [facility] Monocytes Auto (Bld) [#/Vol] on 12-17-2023 Monocytes (Bld) [#/Vol] 0.4 10 3/uL 0.3-0.8 [facility] Monocytes/100 WBC Auto (Bld) on 12-17-2023 Monocytes/100 WBC (Bld) 6.6 % 1.7-12.0 [facility] Neutrophils Auto (Bld) [#/Vo l]on 12-17-2023 Neutrophils (Bld) [#/Vol] 2.4 10 3/uL 1.4-6.5 [facility] Neutrophils/100 WBC Auto (Bl d)on 12-17-2023 Neutrophils/100 WBC (Bld) 44.8 % 43.0-75.0 [facility] No Panel Informationon 12-16 Eosinophils # (Auto) 0.1 10 3/uL 0.0-0.7 [facility] Folate 12.40 ng/mL 8.60-58.90 [facility] Immature Granulocyte # (Auto) 0.01 10 3/uL 0.00-0.03 [facility] Troponin I High Sensitivity 6.3 pg/mL 4.0-51.3 [facility] Comment on above: CUT-OFF POINTS HAVE [...] volume (Bld) [Entitic vol] 10.1 fL 9.5-13.5 [facility] Platelets Auto (Bld) [#/Vol] on 12-17-2023 Platelets (Bld) [#/Vol] 283 10 3/uL 150-450 [facility] Prothrombin time (PT)on 12-06 PT Coag (PPP) [Time] 11.3 s 9.0-11.6 [facility] RBC Auto (Bld) [#/Vol]on RBC (Bld) [#/Vol] 4.40 10 6/uL 4.20-5.40 [facility] Reticulocytes/100 RBC Auto ( Bld)on 12-17-2023 Reticulocytes/100 RBC (Bld) 0.95 % 0.60-3.10 [facility] Serum or plasma albumin/glob ulin mass ratioon 12-17-2023 Albumin/Globulin [Mass ratio] 0.9 {ratio} [facility] Serum or plasma anion gap de terminationon 12-17-2023 Anion gap [Moles/Vol] 12.5 mmol/L [facility] Serum or plasma total choles terol/high density lipoprotein (HDL) cholesterol mass vasiliy 12-17-2023 Cholesterol.total/C holesterol in HDL [Mass ratio] 2.5 {ratio} [facility] Comment on above: 3.3 - 4.4 LOW RISK4. 4 - 7.1 AVERAGE RISK7.1 - 11.0 MODERATE RISK>11.0 HIGH RISK NICOTINE METABOLITESon 08-27 Cotinine <1.0 Normal [facility] Comment on above: Result Comment: This test was developed and its performance characteristics determined by [employer]. It has not been cleared or approved by the Food and Drug Administration. Cotinine levels greater than 20.0 are consistent with the use of tobacco or tobacco cessation products. Performed By: #### N ICTBLD #### [facility] [address] [place] [address] Dr. Malcolm Gil Nicotine <1.0 Normal [facility] Comment on above: Result Comment: This test was developed and its performance characteristics determined by [employer]. It has not been cleared or approved by the Food and Drug Administration. Nicotine levels greater than 2.0 are consistent with the use of tobacco or tobacco cessation products. Performed By: #### N ICTBLD #### [facility] [address] [address] [address] Malcolm Gil GLYCOHEMOGLOBIN A1Con 2022 ADA RECOMMENDATION SEE BELOW Normal [facility] Comment on above: Result Comment: ADA RECOMMENDED LIMIT 4.0 - 6.0 ADA THERAPEUTIC TARGET < 7.0 ACTION SUGGESTED > 7.0 Performed By: #### A 1C #### [facility] [address] [address] [address] Malcolm Gil Glucose [Mass/Vol] 163 mg/dL Normal [facility] Comment on above: Performed By: #### A 1C #### [facility] [address] [address] [address] Malcolm Gil HbA1c (Bld) [Mass fraction] 7.3 % Critically high 4.5-6.2 [facility] Comment on above: Performed By: #### A 1C #### [facility] [address] [address] [address] Malcolm Gil Glucose, Whole Bloodon 10-14 Glucose [Mass/Vol] 85 mg/dL 74 - 100 mg/dL [facility] Glucose, Whole Bloodon 10-13 Glucose [Mass/Vol] 161 mg/dL High 74 - 100 mg/dL [facility] Interpretation and review of laboratory results Abnormal [facility] Glucose [Mass/Vol] 168 mg/dL High 74 - 100 mg/dL [facility] Interpretation and review of laboratory results Abnormal [facility] Glucose [Mass/Vol] 136 mg/dL High 74 - 100 mg/dL [facility] Interpretation and review of laboratory results Abnormal [facility] Glucose [Mass/Vol] 137 mg/dL High 74 - 100 mg/dL [facility] Interpretation and review of laboratory results Abnormal [facility] Hemoglobinon 10-13-2021 Hemoglobin (Bld) [Mass/Vol] 10.1 g/dL Low 11.9-15.1 [facility] Comment on above: Performed By: #### U RTPRT #### [facility] [address] [place] [address] Vending Mechanic: Morro Hale MD Hemoglobin.gastroin testinal spec 1 Ql (Stl) 10.1 g/dL Low 11.9 - 15.1 g/dL [facility] Interpretation and review of laboratory results Abnormal [facility] Hemoglobin A1Con 10-13-2021 Glucose [Mass/Vol] 143 mg/dL Normal [facility] Comment on above: Result Comment: The ADA and AACC recommend providing the estimated average glucose result to permit better patient understanding of their HBA1c result. Performed By: #### U RTPRT #### [facility] [address] [place] [address] Vending Mechanic: Morro Hale MD HbA1c (Bld) [Mass fraction] 6.6 % High 4.0-6.0 [facility] Comment on above: Performed By: #### U RTPRT #### [facility] [address] [place] [address] Vending Mechanic: Morro Hale MD Hemoglobin A1con 10-13-2021 Glucose [Mass/Vol] 143 mg/dL [facility] Comment on above: The ADA and AACC rec ommend providing the estimated average glucose result to permit better patient understanding of their HBA1c result. HbA1c (Bld) [Mass fraction] 6.6 % High 4.0 - 6.0 % [facility] Interpretation and review of laboratory results Abnormal [facility] Magnesiumon 10-13-2021 Magnesium [Mass/Vol] 4.7 mg/dL Critically high 1.6-2.6 [facility] Comment on above: Performed By: #### U RTPRT #### [facility] [address] [place] [address] Vending Mechanic: Morro Hale MD Interpretation and review of laboratory results Abnormal [facility] Magnesium [Mass/Vol] 4.7 mg/dL Critically high 1.6 - 2.6 mg/dL [facility] Magnesium [Mass/Vol] 5.3 mg/dL Critically high 1.6-2.6 [facility] Comment on above: Performed By: #### M G #### [facility] [address] [place] [address] Vending Mechanic: Morro Hale MD Interpretation and review of laboratory results Abnormal [facility] Magnesium [Mass/Vol] 5.3 mg/dL Critically high 1.6 - 2.6 mg/dL [facility] Magnesium [Mass/Vol] 4.1 mg/dL Critically high 1.6-2.6 [facility] Comment on above: Performed By: #### M G #### [facility] [address] [place] [address] Vending Mechanic: Morro Hale MD APTTon 10-12-2021 aPTT Coag (Bld) [Time] 23.9 s Low 26.8-34.8 [facility] Comment on above: Result Comment: IV Heparin Therapy Range: 62.0-94.0 Performed By: #### U RTPRT #### [facility] [address] [place] [address] Vending Mechanic: Morro Hale MD aPTT Coag (Bld) [Time] 23.9 s Low [facility] Comment on above: IV Heparin Therapy Range: 62.0-94.0 Interpretation and review of laboratory results Abnormal [facility] CBC with Auto Differentialon 10-12-2021 Absolute Eos # 0.11 [facility] th Absolute Immature Granulocyte 0.07 [facility] Absolute Lymph # 2.20 [facility] alth Absolute [place] # [address] [facility] Basophils (Bld) [#/Vol] 0.04 10*3/uL [facility] Basophils/100 WBC (Bld) 0 % 0 - 2 % [facility] Eosinophils/100 WBC (Bld) 1 % 1 - 4 % [facility] Hematocrit (Bld) [Volume fraction] 34.6 % Low 36.3 - 47.1 % [facility] Hemoglobin.gastroin testinal spec 1 Ql (Stl) 11.2 g/dL Low 11.9 - 15.1 g/dL [facility] Immature granulocytes/100 WBC (Bld) 1 % High 0 [facility] Interpretation and review of laboratory results Abnormal [facility] Lymphocytes/100 WBC (Bld) 23 % Low 24 - 43 % [facility] MCH (RBC) [Entitic mass] 27.1 pg 25.2 - 33.5 pg [facility] MCHC (RBC) [Mass/Vol] 32.4 g/dL 28.4 - 34.8 g/dL [facility] MCV (RBC) [Entitic vol] 83.6 fL 82.6 - 102.9 fL [facility] Monocytes/100 WBC (Bld) 6 % 3 - 12 % [facility] NRBC Automated 0.0 0.0 per 100 WBC [facility] Platelet distribution width (Bld) [Ratio] 14.6 % High 11.8 - 14.4 % [facility] Platelet mean volume (Bld) [Entitic vol] 10.6 fL 8.1 - 13.5 fL [facility] Platelets (Bld) [#/Vol] 224 10*3/uL [facility] RBC (Bld) [#/Vol] 4.14 10*6/uL 3.95 - 5.11 m/uL [facility] Segmented neutrophils/100 WBC (Bld) 69 % High 36 - 65 % [facility] Segs Absolute 6.68 [facility] WBC (Bld) [#/Vol] 9.6 10*3/uL [facility] CBC with Diffon 10-12-2021 Abs. Basophil 0.04 k/uL Normal 0.00-0.20 [facility] Comment on above: Performed By: #### U RTPRT #### [facility] [address] [place] [address] Dr[place], [place] [phone] Vending Mechanic: Morro Hale MD Abs.Imm.Granulocyte 0.07 k/uL Normal 0.00-0.30 [facility] Comment on above: Performed By: #### U RTPRT #### [facility] [address] [place] [address] Dr[place], [place] [phone] Vending Mechanic: Morro Hale MD Abs.Neutrophil (Seg) 6.68 k/uL Normal 1.50-8.10 [facility] Comment on above: Performed By: #### U RTPRT #### [facility] [address] [place] [address] Dr[place], [place] [phone] Vending Mechanic: Morro Hale MD Basophils/100 WBC (Bld) 0 % Normal 0-2 [facility] Comment on above: Performed By: #### U RTPRT #### [facility] [address] [place], [facility]83 Vending Mechanic: Morro Hale MD Eosinophils (Bld) [#/Vol] 0.11 10*3/uL Normal 0.00-0.44 [facility] Comment on above: Performed By: #### U RTPRT #### [address] [place], [place] [address] Vending Mechanic: Morro Hale MD Eosinophils/100 WBC (Bld) 1 % Normal 1-4 [facility] Comment on above: Performed By: #### U RTPRT #### [address] [place], [facility]83 Vending Mechanic: Morro Hale MD Erythrocyte distribution width (RBC) [Ratio] 14.6 % High 11.8-14.4 [facility] Comment on above: Performed By: #### U RTPRT #### [address] [place], [facility]83 Vending Mechanic: Morro Hale MD Hematocrit (Bld) [Volume fraction] 34.6 % Low 36.3-47.1 [facility] Comment on above: Performed By: #### U RTPRT #### [address] [place], [place] [address] Vending Mechanic: Morro Hale MD Hemoglobin (Bld) [Mass/Vol] 11.2 g/dL Low 11.9-15.1 [facility] Comment on above: Performed By: #### U RTPRT #### [address] [place], [facility]83 Vending Mechanic: Morro Hale MD Immature granulocytes/100 WBC (Bld) 1 % High 0 [facility] Comment on above: Performed By: #### U RTPRT #### [facility] [address] [place] [address] Dr. [place], [place] [phone] Vending Mechanic: Morro Hale MD Lymphocytes (Bld) [#/Vol] 2.20 10*3/uL Normal 1.10-3.70 [facility] Comment on above: Performed By: #### U RTPRT #### [facility] [address] [place], [place] [phone] Vending Mechanic: Morro Hale MD Lymphocytes/100 WBC (Bld) 23 % Low 24-43 [facility] Comment on above: Performed By: #### U RTPRT #### [address] [place], [facility]83 Vending Mechanic: Morro Hale MD MCH (RBC) [Entitic mass] 27.1 pg Normal 25.2-33.5 [facility] Comment on above: Performed By: #### U RTPRT #### [address] [place], [facility]83 Vending Mechanic: Morro Hale MD MCHC (RBC) [Mass/Vol] 32.4 g/dL Normal 28.4-34.8 [facility] Comment on above: Performed By: #### U RTPRT #### [address] [place], [facility]83 Vending Mechanic: Morro Hale MD MCV (RBC) [Entitic vol] 83.6 fL Normal 82.6-102.9 [facility] Comment on above: Performed By: #### U RTPRT #### [address] [place], [place] [phone] Vending Mechanic: Morro Hale MD Monocytes (Bld) [#/Vol] 0.53 10*3/uL Normal 0.10-1.20 [facility] Comment on above: Performed By: #### U RTPRT #### [address] [place] [address] Vending Mechanic: Morro Hale MD Monocytes/100 WBC (Bld) 6 % Normal 3-12 [facility] Comment on above: Performed By: #### U RTPRT #### [facility] [address] [place], [place] [phone] Vending Mechanic: Morro Hale MD Neutrophil (Seg) 69 % High 36-65 [facility] Comment on above: Performed By: #### U RTPRT #### [facility] [address] [place], [place] [phone] Vending Mechanic: Morro Hale MD NRBC Automated 0.0 per 100 WBC Normal 0.0 [facility] Comment on above: Performed By: #### U RTPRT #### [facility] [address] [place], [place] [phone] Vending Mechanic: Morro Hale MD Platelet mean volume (Bld) [Entitic vol] 10.6 fL Normal 8.1-13.5 [facility] Comment on above: Performed By: #### U RTPRT #### [facility] [address] [place] [address] Dr. [place], [place] [phone] Vending Mechanic: Morro Hale MD Platelets (Bld) [#/Vol] 224 10*3/uL Normal 138-453 [facility] Comment on above: Performed By: #### U RTPRT #### [facility] [address] [place], [place] [phone] Vending Mechanic: Morro Hale MD RBC (Bld) [#/Vol] 4.14 10*6/uL Normal 3.95-5.11 [facility] Comment on above: Performed By: #### U RTPRT #### [facility] [address] [place] [address] Vending Mechanic: Morro Hale MD WBC (Bld) [#/Vol] 9.6 10*3/uL Normal 3.5-11.3 [facility] Comment on above: Performed By: #### U RTPRT #### [facility] [address] [place] [address] Vending Mechanic: Morro Hale MD Comp Metabolic Profon 2021 (cont.) Normal [facility] Comment on above: Result Comment: Aver age GFR for 30-39 years old: 107 mL/min/1.73sq m Chronic Kidney Disease: <60 mL/min/1.73sq m Kidney failure: <15 mL/min/1.73sq m eGFR calculated using average adult body mass. Additional eGFR calculator available at: http://[email or web address]_crcl_2011.htm Performed By: #### U RTPRT #### [facility] [address] [place] [address] Vending Mechanic: Morro Hale MD Albumin [Mass/Vol] 3.3 g/dL Low 3.5-5.2 [facility] Comment on above: Performed By: #### U RTPRT #### [facility] [address] [place] [address] Vending Mechanic: Morro Hale MD Albumin/Glob Ratio 1.2 Normal 1.0-2.5 [facility] Comment on above: Performed By: #### U RTPRT #### [facility] [address] [place] [address] Vending Mechanic: Morro Hale MD Alkaline Phos 112 U/L High 35-104 [facility] Comment on above: Performed By: #### U RTPRT #### [facility] [address] [place] [address] Vending Mechanic: Morro Hale MD ALT [Catalytic activity/Vol] 11 U/L Normal 5-33 [facility] Comment on above: Performed By: #### U RTPRT #### [facility] [address] [place] [phone] Vending Mechanic: Morro Hale MD Anion gap [Moles/Vol] 11 mmol/L Normal 9-17 [facility] Comment on above: Performed By: #### U RTPRT #### [facility] [address] [place], [place] [phone] Vending Mechanic: Morro Hale MD AST [Catalytic activity/Vol] 14 U/L Normal <32 [facility] Comment on above: Performed By: #### U RTPRT #### [facility] [address] [place], [place] [phone] Vending Mechanic: Morro Hale MD Bilirubin [Mass/Vol] 0.27 mg/dL Low 0.3-1.2 [facility] Comment on above: Performed By: #### U RTPRT #### [facility] [address] [place], [place] [phone] Vending Mechanic: Morro Hale MD BUN/CRE Ratio 19 Normal 9-20 [facility] Comment on above: Performed By: #### U RTPRT #### [facility] [address] [place], [place] [phone] Vending Mechanic: Morro Hale MD Calcium [Mass/Vol] 9.2 mg/dL Normal 8.6-10.4 [facility] Comment on above: Performed By: #### U RTPRT #### [facility] [address] [place], [place] [phone] Vending Mechanic: Morro Hale MD Chloride [Moles/Vol] 98 mmol/L Normal 98-107 [facility] Comment on above: Performed By: #### U RTPRT #### [facility] [address] [place], [place] [phone] Vending Mechanic: Morro Hale MD CO2 [Moles/Vol] 21 mmol/L Normal 20-31 [facility] Comment on above: Performed By: #### U RTPRT #### [facility] [address] [place], [place] [phone] Vending Mechanic: Morro Hale MD Creatinine [Mass/Vol] 0.58 mg/dL Normal 0.50-0.90 [facility] Comment on above: Performed By: #### U RTPRT #### [facility] [address] [place], [place] [phone] Vending Mechanic: Morro Hale MD GFR, Amer >60 Normal >60 [facility] Comment on above: Performed By: #### U RTPRT #### [facility] [address] [place], [place] [phone] Vending Mechanic: Morro Hale MD GFR,non Amer >60 Normal >60 [facility] Comment on above: Performed By: #### U RTPRT #### [facility] [address] [place], [place] [phone] Vending Mechanic: Morro Hale MD Glucose [Mass/Vol] 120 mg/dL High 70-99 [facility] Comment on above: Performed By: #### U RTPRT #### [facility] [address] [place] [address] Dr. [place], [place] [phone] Vending Mechanic: Morro aHle MD Potassium [Moles/Vol] 3.8 mmol/L Normal 3.7-5.3 [facility] Comment on above: Performed By: #### U RTPRT #### [facility] [address] [place], [place] [phone] Vending Mechanic: Morro Hale MD Protein [Mass/Vol] 6.1 g/dL Low 6.4-8.3 [facility] Comment on above: Performed By: #### U RTPRT #### [facility] [address] [place] [address] Vending Mechanic: Morro Hale MD Sodium [Moles/Vol] 130 mmol/L Low 135-144 [facility] Comment on above: Performed By: #### U RTPRT #### [facility] [address] [place] [address] Vending Mechanic: Morro Hale MD Staging: Normal [facility] Comment on above: Result Comment: Stag e 1: Some kidney damage normal GFR Stage 2: Mild kidney damage GFR 60-89 Stage 3: Moderate kidney damage GFR 30-59 Stage 4: Severe kidney damage GFR 15-29 Stage 5: Severe kidney damage GFR <15 ESRD - chronic treatment by dialysis or transplant Performed By: #### U RTPRT #### [facility] [address] [place] [address] Vending Mechanic: Morro Hale MD Urea nitrogen [Mass/Vol] 11 mg/dL Normal 6-20 [facility] Comment on above: Performed By: #### U RTPRT #### [facility] [address] [place] [address] Vending Mechanic: Morro Hale MD Comprehensive Metabolic Pane [facility] 10-12-2021 Albumin [Mass/Vol] 3.3 g/dL Low 3.5 - 5.2 g/dL [facility] Albumin/Globulin [Mass ratio] 1.2 {ratio} [facility] ALP (Bld) [Catalytic activity/Vol] 112 U/L High 35 - 104 U/L [facility] ALT [Catalytic activity/Vol] 11 U/L 5 - 33 U/L [facility] Anion gap [Moles/Vol] 11 mmol/L 9 - 17 mmol/L [facility] AST [Catalytic activity/Vol] 14 U/L <32 [facility] Bilirubin [Mass/Vol] 0.27 mg/dL Low 0.3 - 1.2 mg/dL [facility] Calcium [Mass/Vol] 9.2 mg/dL 8.6 - 10. 4 mg/dL [facility] Chloride [Moles/Vol] 98 mmol/L 98 - 107 mmol/L [facility] CO2 [Moles/Vol] 21 mmol/L 20 - 31 mmol/L [facility] Creatinine [Mass/Vol] 0.58 mg/dL 0.50 - 0.90 mg/dL [facility] Free PSA/Total PSA [Mass fraction] 6.1 g/dL Low 6.4 - 8.3 g/dL [facility] GFR >60 >60 mL/min [facility] GFR Non- >60 >60 mL/min [facility] Glucose [Mass/Vol] 120 mg/dL High 70 - 99 mg/dL [facility] Interpretation and review of laboratory results Abnormal [facility] Potassium [Moles/Vol] 3.8 mmol/L 3.7 - 5.3 mmol/L [facility] Sodium [Moles/Vol] 130 mmol/L Low 135 - 144 mmol/L [facility] Urea nitrogen (BldV) [Mass/Vol] 11 mg/dL 6 - 20 mg/dL [facility] Urea nitrogen/Creatinine (Bld) [Mass ratio] 19 [facility] Drug Scr, Abuse, Uron 2021 Amphetamine(s),Ur Negative Normal [facility] Comment on above: Performed By: #### D AU #### [facility] [address] [place] [address] [place] [address] Vending Mechanic: Morro Hale MD Barbiturate(s),Ur Negative Normal [facility] Comment on above: Performed By: #### D AU #### [facility] [address] [place] [address] Vending Mechanic: Morro Hale MD Benzodiazepine(s) Negative Normal [facility] Comment on above: Performed By: #### D AU #### [facility] [address] [place] [address] Vending Mechanic: Morro Hale MD Buprenorphrine, Ur Negative Normal [facility] Comment on above: Performed By: #### D AU #### [facility] [address] [place] [address] Vending Mechanic: Morro Hale MD Cannabinoid(s),Ur Negative Normal [facility] Comment on above: Performed By: #### D AU #### [facility] [address] [place] [address] Vending Mechanic: Morro Hale MD Cocaine Metabolite Negative Normal [facility] Comment on above: Performed By: #### D AU #### [facility] [address] [place] [address] Vending Mechanic: Morro Hale MD Methadone Ql (U) Negative Normal [facility] Comment on above: Performed By: #### D AU #### [facility] [address] [place], [place] [phone] Vending Mechanic: Morro Hale MD Methamphetamine, Ur Negative Normal [facility] Comment on above: Performed By: #### D AU #### [facility] [address] [place], [place] [phone] Vending Mechanic: Morro Hale MD Opiate(s), Ur Negative Normal [facility] Comment on above: Performed By: #### D AU #### [facility] [address] [place] [address] Vending Mechanic: Morro Hale MD Oxycodone, Urine Negative Normal [facility] Comment on above: Performed By: #### D AU #### [facility] [address] [place] [address] Vending Mechanic: Morro Hale MD Phencyclidine, Ur Negative Normal [facility] Comment on above: Performed By: #### D AU #### [facility] [address] [place], [place] [phone] Vending Mechanic: Morro Hale MD Propoxyphene,Urine Negative Normal [facility] Comment on above: Performed By: #### D AU #### [facility] [address] [place], [place] [phone] Vending Mechanic: Morro Hale MD Tricyclic antidepressants Screen Ql (U) Negative Normal [facility] Comment on above: Result Comment: Drug screen results are to be used for medical purposes only. All positive results are unconfirmed. Testing for employment or legal uses should be sent to a reference laboratory for confirmation. Performed By: #### D AU #### [facility] [address] [place] [address] Vending Mechanic: Morro Hale MD Fibrinogenon 10-12-2021 Fibrinogen 572 mg/dL High 179-518 [facility] Comment on above: Performed By: #### U RTPRT #### [facility] [address] [place] [address] Vending Mechanic: Morro Hale MD Fibrinogen 572 mg/dL High 179 - 518 mg/dL [facility] Interpretation and review of laboratory results Abnormal [facility] Glucose, Whole Bloodon 10-12 Glucose [Mass/Vol] 229 mg/dL High 74 - 100 mg/dL [facility] Interpretation and review of laboratory results Abnormal [facility] Glucose [Mass/Vol] 216 mg/dL High 74 - 100 mg/dL [facility] Interpretation and review of laboratory results Abnormal [facility] Glucose [Mass/Vol] 129 mg/dL High 74 - 100 mg/dL [facility] Interpretation and review of laboratory results Abnormal [facility] Laboratory - Chemistry and C hemistry - challengeon 10-12-2021 GFR/1.73 sq M.predicted MDRD (S/P/Bld) [Vol rate/Area] [facility] Comment on above: Average GFR for 30-3 9 years old: 107 mL/min/1.73sq m Chronic Kidney Disease: <60 mL/min/1.73sq m Kidney failure: <15 mL/min/1.73sq m eGFR calculated using average adult body mass. Additional eGFR calculator available at: http://www.[facility].Food[employer]/multiple_crcl_2012.htm Stage 1: Some kidney damage normal GFR Stage 2: Mild kidney damage GFR 60-89 Stage 3: Moderate kidney damage GFR 30-59 Stage 4: Severe kidney damage GFR 15-29 Stage 5: Severe kidney damage GFR <15 ESRD - chronic treatment by dialysis or transplant Lactate Dehydrogenaseon 04-0 LDH [Catalytic activity/Vol] 194 U/L Normal 135-214 [facility] Comment on above: Performed By: #### U RTPRT #### [facility] [address] [place] [address] Vending Mechanic: Morro Hale MD LD 194 U/L 135 - 214 U/L [facility] Magnesiumon 10-12-2021 Interpretation and review of laboratory results Abnormal [facility] Magnesium [Mass/Vol] 4.1 mg/dL Critically high 1.6 - 2.6 mg/dL [facility] Magnesium [Mass/Vol] 4.0 mg/dL Critically high 1.6-2.6 [facility] Comment on above: Performed By: #### M G #### [facility] [address] [place] [address] Vending Mechanic: Morro Hale MD Interpretation and review of laboratory results Abnormal [facility] Magnesium [Mass/Vol] 4.0 mg/dL Critically high 1.6 - 2.6 mg/dL [facility] No Panel Informationon 10-12 [facility] OPERATIVE REPORTon OPERATIVE REPORT [place] [id number] OPERATIVE REPORT PATIENT NAME: SOLANGE LUCAS : 1985 MED REC NO: [id number] ROOM: 0203 ACCOUNT NO: [id number] ADMIT DATE: 10/12/2021 PROVIDER: Kang Panda MD DATE OF PROCEDURE: 10/12/2021 ADDENDUM ICE BAG ASSEMBLER: ELINOR Chambers MD [id number] Doc#: [id number] Normal [facility] OPERATIVE REPORT [place] [phone] OPERATIVE REPORT PATIENT NAME: SOLANGE LUCAS : 1985 MED REC NO: [id number] ROOM: 0203 ACCOUNT NO: [id number] ADMIT DATE: 10/12/2021 PROVIDER: Kang Panda MD [...] was extended in a semilunar fashion with chemical etch operator's fingers. head was elevated. Fundal pressure [...] cut. Infant handed off to nursing and set up operator tool who attended the delivery. Cord blood specimen [...] be correct. KANG PANDA MD [id number] Doc#: [id number] CC: Normal [facility] PTon 10-12-2021 INR Coag (PPP) [Relative time] 1.0 {INR} [facility] Comment on above: Result Comment: Non-therapeutic Range: INR = 0.9-1.2 Therapeutic Range: Moderate Anticoagulant Intensity: INR = 2.0-3.0 High Anticoagulant Intensity: INR = 2.5-3.5 Performed By: #### U RTPRT #### [address] [place], [place] [phone] Vending Mechanic: Morro Hale MD PT Coag (PPP) [Time] 13.1 s Normal 11.5-14.2 [facility] Comment on above: Performed By: #### U RTPRT #### [address] [place], [place] [phone] Vending Mechanic: Morro Hale MD Protein / Creatinine Ratio, Urineon 10-12-2021 Creatinine, Ur 51.4 mg/dL 28.0 - 217.0 mg/dL [facility] Protein (U) [Mass/Vol] 5 mg/dL [facility] Comment on above: No normal range esta blished. Urine Total Protein Creatinine Ratio 0.10 [facility] Protein,Tot,[place] Uron 2021 Creatinine [Mass/Vol] 51.4 mg/dL Normal 28.0-217.0 [facility] Comment on above: Performed By: #### U RTPRT #### [address] [place], [place] [phone] Vending Mechanic: Morro Hale MD Tot Prot. Conc. 5 mg/dL Normal [facility] Comment on above: Result Comment: No n ormal range established. Performed By: #### U RTPRT #### [address] [place], [place] [phone] Vending Mechanic: Morro Hale MD TP/Cre Ratio 0.10 Normal 0.00-0.20 [facility] Comment on above: Performed By: #### U RTPRT #### [address] [place], [place] [phone] Vending Mechanic: Morro Hale MD Protime-INRon 10-12-2021 INR Coag (Bld) [Relative time] 1.0 {INR} [facility] Comment on above: Non-therapeutic Range: INR = 0.9-1.2 Therapeutic Range: Moderate Anticoagulant Intensity: INR = 2.0-3.0 High Anticoagulant Intensity: INR = 2.5-3.5 PT Coag (PPP) [Time] 13.1 s [facility] Surgical Pathologyon 022 Surgical Pathology (NOTE) -- Diagnosis -- A. LEFT FALLOPIAN TUBE, SALPINGECTOMY: -NO PATHOLOGIC DIAGNOSIS B. RIGHT FALLOPIAN TUBE, SALPINGECTOMY: -NO PATHOLOGIC DIAGNOSIS C. THIRD TRIMESTER TYPE PLACENTA (675 G) DEMONSTRATING: -TWO-VESSEL HYPER SPIRALED UMBILICAL CORD -UNREMARKABLE PLACENTAL MEMBRANES -THIRD TRIMESTER TYPE PLACENTAL DISC DEMONSTRATING NO SIGNIFICANT HISTOPATHOLOGIC FEATURES Murphy Valle D.O. Electronically Signed Out [facility]10/16[facility]2021 Clinical Information Operative Findings: L TUBE; R [...] SURGICAL PATHOLOGY CONSULTATION Patient Name: [facility] Rec: [id number] Path Number: [id number] [facility] ANATOMIC PATHOLOGY [address] [place] [address]. [place], [place] [address] [facility] Comment on above: Performed By: #### M G #### [facility] [address] [place] [address] [place] [address] Vending Mechanic: Morro Hale MD TYPE AND SCREENon 10-12-2021 ABO/Rh Positive [facility] Arm Band Number [id number] [facility] [address] [facility] Expiration Date 10/15/2021,2359 [facility] Type + Screenon 10-12-2021 Type + Screen Sample Expiration 10/15/2021,235 Arm Band Number [id number] ABO/Rh(D) O POSITIVE Antibody Screen NEGATIVE [facility] Comment on above: Performed By: #### T YS #### [facility] [address] [place] [address] [place] [address] Vending Mechanic: Morro Hale MD Uric Acidon 10-12-2021 Urate [Mass/Vol] 4.4 mg/dL Normal 2.4-5.7 [facility] Comment on above: Performed By: #### U RTPRT #### [facility] [address] [place] [address] Vending Mechanic: Morro Hale MD Urate [Mass/Vol] 4.4 mg/dL 2.4 - 5.7 mg/dL [facility] Bilirubin Urine Negative [facility]IVE [facility], UA Yellow Yellow [facility] Glucose, Ur Negative NEGATIVE [facility] Ketones Ql (U) Negative NEGATIVE [facility] Leukocyte esterase Test strip Ql (U) Negative NEGATIVE [facility] Nitrite, Urine Negative NEGATIVE [facility] pH, UA 6.0 [facility] Protein, UA Negative NEGATIVE [facility] Specific [place], UA 1.015 [facility] Turbidity UA Clear Clear [facility] Urine Hgb Negative NEGATIVE [facility] Urobilinogen, Urine Normal Normal [facility] Urinalysis, Routineon 2021 Bilirubin, SemiQt,Ur Negative Normal NEG [facility] Comment on above: Performed By: #### M G #### [facility] [address] [place] [address] Vending Mechanic: Morro Hale MD Blood, Urine Negative Normal NEG [facility] Comment on above: Performed By: #### M G #### [facility] [address] [place] [address] Vending Mechanic: Morro Hale MD Clarity (U) Clear Normal CLEAR [facility] Comment on above: Performed By: #### M G #### [facility] [address] [place] [address] Vending Mechanic: Morro Hale MD Color (U) Yellow Normal YEL [facility] Comment on above: Performed By: #### M G #### [facility] [address] [place] [address] Vending Mechanic: Morro Hale MD Glucose Ql (U) Negative Normal NEG [facility] Comment on above: Performed By: #### M G #### [facility] [address] [place] [address] Vending Mechanic: Morro Hale MD Ketones Ql (U) Negative Normal NEG [facility] Comment on above: Performed By: #### M G #### [facility] [address] [place] [address] Vending Mechanic: Morro Hale MD Leukocyte esterase Test strip Ql (U) Negative Normal NEG [facility] Comment on above: Performed By: #### M G #### [facility] [address] [place] [address] Vending Mechanic: Morro Hale MD Nitrite,Ur Negative Normal NEG [facility] Comment on above: Performed By: #### M G #### [facility] [address] [place], [place] [phone] Vending Mechanic: Morro Hale MD PH,Ur 6.0 Normal 5.0-9.0 [facility] Comment on above: Performed By: #### M G #### [facility] [address] [place], [facility]83 Vending Mechanic: Morro Hale MD Protein Ql (U) Negative Normal NEG [facility] Comment on above: Performed By: #### M G #### [facility] [address] [place], [place] [phone] Vending Mechanic: Morro Hale MD Spec. [place],Ur 1.015 Normal 1.010-1.02 0 [facility] Comment on above: Performed By: #### M G #### [facility] [address] [place], [facility]83 Vending Mechanic: Morro Hale MD Urobilinogen,Ur Normal Normal NORM [facility] Comment on above: Performed By: #### M G #### [facility] [address] [place], [place] 1365483 Vending Mechanic: Morro Hale MD Urine Drug Screenon 10-13-19 22 Amphetamine Screen, Ur Negative NEGATIVE [facility] Barbiturate Screen, Ur Negative NEGATIVE [facility] Benzodiazepine Screen, Urine Negative NEGATIVE [facility] Buprenorphine Urine Negative NEGATIVE [facility] Cannabinoid Scrn, Ur Negative NEGATIVE [facility] Cocaine Metabolite, Urine Negative NEGATIVE [facility] Methadone Screen, Urine Negative NEGATIVE [facility] Methamphetamine, Urine Negative NEGATIVE [facility] Opiates, Urine Negative NEGATIVE [facility] th Oxycodone Screen, Ur Negative NEGATIVE [facility] Phencyclidine, Urine Negative NEGATIVE [facility] Propoxyphene, Urine Negative NEGATIVE [facility] Tricyclic Antidepressants, Urine Negative NEGATIVE [facility] Comment on above: Drug screen results are to be used for medical purposes only. All positive results are unconfirmed. Testing for employment or legal uses should be sent to a reference laboratory for confirmation. [facility] GBS, External Resulton 09-26 GBS, External Result Positive [employer] Work Phone: Verified with Jacqueline Manuel RN [employer] Work Phone: Eat Work Phone: US Biophysical Profileon US Biophysical Profile FINDINGS: Breathing Movements2 Gross Body Movements 2 Tone2 Qualitative amniotic fluid volume2 A single, viable intrauterine is present. Heart rate 128 bpm. Cervix is closed 4.0 cm. Cephalic presentation, posterior fundal placenta, Grade 2. IMPRESSION: Posterior fundal placenta Grade 2 and normal biophysical profile. Report reported and signed by Ruben Howell on 09/26/2021 1028 Normal [facility] OB Limitedon 09-26-2021 US OB Limited FINDINGS: [...] by Ruben Howell on 09/26/2021 0933 Normal [facility] OB Limitedon 09-18-2021 US OB Limited FINDINGS: [...] by Ruben Howell on 09/19/2021 0823 Normal [facility] Patient Support Assistant CBC with Auto Differentialon 09-16-2021 Absolute Eos # 0.12 [facility] th Absolute Immature Granulocyte 0.10 [facility] Absolute Lymph # 2.44 [facility] Absolute [place] # 0.62 [facility] lth Basophils (Bld) [#/Vol] 0.04 10*3/uL [facility] Basophils/100 WBC (Bld) 0 % 0 - 2 % [facility] Eosinophils/100 WBC (Bld) 1 % 1 - 4 % [facility] Hematocrit (Bld) [Volume fraction] 35.0 % Low 36.3 - 47.1 % [facility] Hemoglobin.gastroin testinal spec 1 Ql (Stl) 11.2 g/dL Low 11.9 - 15.1 g/dL [facility] Immature granulocytes/100 WBC (Bld) 1 % High 0 [facility] Interpretation and review of laboratory results Abnormal [facility] Lymphocytes/100 WBC (Bld) 21 % Low 24 - 43 % [facility] MCH (RBC) [Entitic mass] 27.5 pg 25.2 - 33.5 pg [facility] MCHC (RBC) [Mass/Vol] 32.0 g/dL 28.4 - 34.8 g/dL [facility] MCV (RBC) [Entitic vol] 86.0 fL 82.6 - 102.9 fL [facility] [employer] Monocytes/100 WBC (Bld) 5 % 3 - 12 % [facility] [employer] NRBC Automated 0.0 0.0 per 100 WBC [facility] [employer] Platelet distribution width (Bld) [Ratio] 14.2 % 11.8 - 14.4 % [facility] Plate[facility] mean volume (Bld) [Entitic vol] 9.6 fL 8.1 - 13.5 fL [facility] [employer] Platelets (Bld) [#/Vol] 210 10*3/uL [facility] RBC (Bld) [#/Vol] 4.07 10*6/uL 3.95 - 5.11 m/uL [facility] [employer] Segmented neutrophils/100 WBC (Bld) 72 % High 36 - 65 % [facility] Segs Absolute 8.37 High [facility] WBC (Bld) [#/Vol] 11.7 10*3/uL High [facility] CBC with Diffon 09-16-2021 Abs. Basophil 0.04 k/uL Normal 0.00-0.20 [facility] Comment on above: Performed By: #### L Carla, CP, URI, CDP #### [facility] [address] [place] [address] [place] [address] Vending Mechanic: Morro Hale MD Abs.Imm.Granulocyte 0.10 k/uL Normal 0.00-0.30 [facility] Comment on above: Performed By: #### L Carla, YUMIKO, URI, CDP #### [address] [place] [phone] Vending Mechanic: Morro Hale MD Abs.Neutrophil (Seg) 8.37 k/uL High 1.50-8.10 [facility] Comment on above: Performed By: #### L Carla, CP, URI, CDP #### [address] [place], [place] [phone] Vending Mechanic: Morro Hale MD Basophils/100 WBC (Bld) 0 % Normal 0-2 [facility] Comment on above: Performed By: #### L Carla, YUMIKO, URI, CDP #### [address] [place], [place] [address] Vending Mechanic: Morro Hale MD Eosinophils (Bld) [#/Vol] 0.12 10*3/uL Normal 0.00-0.44 [facility] Comment on above: Performed By: #### L Carla, YUMIKO, URI, CDP #### [address] [place], [place] [phone] Vending Mechanic: Morro Hale MD Eosinophils/100 WBC (Bld) 1 % Normal 1-4 [facility] Comment on above: Performed By: #### L Carla, CP, URI, CDP #### [facility] [address] [place], [place] [phone] Vending Mechanic: Morro Hale MD Erythrocyte distribution width (RBC) [Ratio] 14.2 % Normal 11.8-14.4 [facility] Comment on above: Performed By: #### L D, CP, URI, CDP #### [address] [place], [place] [address] Vending Mechanic: Morro Hale MD Hematocrit (Bld) [Volume fraction] 35.0 % Low 36.3-47.1 [facility] Comment on above: Performed By: #### L Carla, CP, URI, CDP #### [address] [place] [address] Vending Mechanic: Morro Hale MD Hemoglobin (Bld) [Mass/Vol] 11.2 g/dL Low 11.9-15.1 [facility] Comment on above: Performed By: #### L D, CP, URI, CDP #### [address] [place], [place] [address] Vending Mechanic: Morro Hale MD Immature granulocytes/100 WBC (Bld) 1 % High 0 [facility] Comment on above: Performed By: #### L D, CP, URI, CDP #### [address] [place], [place] [address] Vending Mechanic: Morro Hale MD Lymphocytes (Bld) [#/Vol] 2.44 10*3/uL Normal 1.10-3.70 [facility] Comment on above: Performed By: #### L D, CP, URI, CDP #### [address] [place], [facility]83 Vending Mechanic: Morro Hale MD Lymphocytes/100 WBC (Bld) 21 % Low 24-43 [facility] Comment on above: Performed By: #### L D, CP, URI, CDP #### [facility] [address] [place] [address] Dr[place], [place] [phone] Vending Mechanic: Morro Hale MD MCH (RBC) [Entitic mass] 27.5 pg Normal 25.2-33.5 [facility] Comment on above: Performed By: #### L Carla, CP, URI, CDP #### [address] [place], [place] [address] Vending Mechanic: Morro Hale MD MCHC (RBC) [Mass/Vol] 32.0 g/dL Normal 28.4-34.8 [facility] Comment on above: Performed By: #### L Carla, YUMIKO, URI, CDP #### [address] [place], [facility]83 Vending Mechanic: Morro Hale MD MCV (RBC) [Entitic vol] 86.0 fL Normal 82.6-102.9 [facility] Comment on above: Performed By: #### L Carla, YUMIKO, URI, CDP #### [address] [place], [facility]83 Vending Mechanic: Morro Hale MD Monocytes (Bld) [#/Vol] 0.62 10*3/uL Normal 0.10-1.20 [facility] Comment on above: Performed By: #### L Carla, YUMIKO, URI, CDP #### [address] [place], [facility]83 Vending Mechanic: Morro Hale MD Monocytes/100 WBC (Bld) 5 % Normal 3-12 [facility] Comment on above: Performed By: #### L Crala, CP, URI, CDP #### [facility] [address] [place], [facility]83 Vending Mechanic: Morro Hale MD Neutrophil (Seg) 72 % High 36-65 [facility] Comment on above: Performed By: #### L Carla, CP, URI, CDP #### [facility] [address] [place], [place] [phone] Vending Mechanic: Morro Hale MD NRBC Automated 0.0 per 100 WBC Normal 0.0 [facility] Comment on above: Performed By: #### L D, CP, URI, CDP #### [facility] [address] [place], [facility]83 Vending Mechanic: Morro Hale MD Platelet mean volume (Bld) [Entitic vol] 9.6 fL Normal 8.1-13.5 [facility] Comment on above: Performed By: #### L Carla, CP, URI, CDP #### [address] [place], [facility]83 Vending Mechanic: Morro Hale MD Platelets (Bld) [#/Vol] 210 10*3/uL Normal 138-453 [facility] Comment on above: Performed By: #### L Carla, YUMIKO, URI, CDP #### [address] [place], [place] 0375183 Vending Mechanic: Morro Hale MD RBC (Bld) [#/Vol] 4.07 10*6/uL Normal 3.95-5.11 [facility] Comment on above: Performed By: #### L Carla, YUMIKO, URI, CDP #### [address] [place], [facility]83 Vending Mechanic: Morro Hale MD WBC (Bld) [#/Vol] 11.7 10*3/uL High 3.5-11.3 [facility] Comment on above: Performed By: #### L Carla, CP, URI, CDP #### [facility] [address] [place], [place] [phone] Vending Mechanic: Morro Hale MD Comp Metabolic Profon 2021 (cont.) Normal [facility] Comment on above: Result Comment: Aver age GFR for 30-39 years old: 107 mL/min/1.73sq m Chronic Kidney Disease: <60 mL/min/1.73sq m Kidney failure: <15 mL/min/1.73sq m eGFR calculated using average adult body mass. Additional eGFR calculator available at: http://www.[employer]/multiple_crcl_2012.htm Performed By: #### L Carla, YUMIKO, URI, CDP #### [facility] [address] [place] [address] Dr[place], [place] [phone] Vending Mechanic: Morro Hale MD Albumin [Mass/Vol] 3.4 g/dL Low 3.5-5.2 [facility] Comment on above: Performed By: #### Elliot Aguirre CP, URI, CDP #### [address] [place], [place] [phone] Vending Mechanic: Morro Hale MD Albumin/Glob Ratio 1.2 Normal 1.0-2.5 [facility] Comment on above: Performed By: #### Elliot Agiurre CP, URI, CDP #### [address] [place], [place] [phone] Vending Mechanic: Morro Hale MD Alkaline Phos 98 U/L Normal 35-104 [facility] Comment on above: Performed By: #### Elliot Aguirre CP, URI, CDP #### [address] [place], [place] [phone] Vending Mechanic: Morro Hale MD ALT [Catalytic activity/Vol] 10 U/L Normal 5-33 [facility] Comment on above: Performed By: #### L YUMIKO Aguirre, URI, CDP #### [facility] [address] [place] [address] [place] [address] Vending Mechanic: Morro Hale MD Anion gap [Moles/Vol] 8 mmol/L Low 9-17 [facility] Comment on above: Performed By: #### L Carla, CP, URI, CDP #### [facility] [address] [place], [place] 6168483 Vending Mechanic: Morro Hale MD AST [Catalytic activity/Vol] 13 U/L Normal <32 [facility] Comment on above: Performed By: #### L D, CP, URI, CDP #### [facility] [address] [place], [place] 1530883 Vending Mechanic: Morro Hale MD Bilirubin [Mass/Vol] 0.17 mg/dL Low 0.3-1.2 [facility] Comment on above: Performed By: #### L D, CP, URI, CDP #### [address] [place], [place] 3744683 Vending Mechanic: Morro Hale MD BUN/CRE Ratio 21 High 9-20 [facility] Comment on above: Performed By: #### L D, CP, URI, CDP #### [address] [place], [place] 3971083 Vending Mechanic: Morro Hale MD Calcium [Mass/Vol] 9.1 mg/dL Normal 8.6-10.4 [facility] Comment on above: Performed By: #### L D, CP, URI, CDP #### [address] [place], [place] 7729983 Vending Mechanic: Morro Hale MD Chloride [Moles/Vol] 103 mmol/L Normal 98-107 [facility] Comment on above: Performed By: #### L D, CP, URI, CDP #### [address] [place], [place] 0922483 Vending Mechanic: Morro Hale MD CO2 [Moles/Vol] 24 mmol/L Normal 20-31 [facility] Comment on above: Performed By: #### L D, CP, URI, CDP #### [address] [place], [place] 3055783 Vending Mechanic: Morro Hale MD Creatinine [Mass/Vol] 0.48 mg/dL Low 0.50-0.90 [facility] Comment on above: Performed By: #### L D, CP, URI, CDP #### [facility] [address] [place] [address] Vending Mechanic: Morro Hale MD GFR, Amer >60 Normal >60 [facility] Comment on above: Performed By: #### L D, CP, URI, CDP #### [facility] [address] [place], [place] 9943383 Vending Mechanic: Morro Hale MD GFR,non Amer >60 Normal >60 [facility] Comment on above: Performed By: #### L D, CP, URI, CDP #### [facility] [address] [place] [address] [place], [place] 0723783 Vending Mechanic: Morro Hale MD Glucose [Mass/Vol] 162 mg/dL High 70-99 [facility] Comment on above: Performed By: #### L D, CP, URI, CDP #### [address] [place], [place] 6970583 Vending Mechanic: Morro Hale MD Potassium [Moles/Vol] 3.9 mmol/L Normal 3.7-5.3 [facility] Comment on above: Performed By: #### L D, CP, URI, CDP #### [facility] [address] [place] [address] [place], [place] 0174383 Vending Mechanic: Morro Hale MD Protein [Mass/Vol] 6.2 g/dL Low 6.4-8.3 [facility] Comment on above: Performed By: #### L D, CP, URI, CDP #### [facility] [address] [place], [place] 3195483 Vending Mechanic: Morro Hale MD Sodium [Moles/Vol] 135 mmol/L Normal 135-144 [facility] Comment on above: Performed By: #### Elliot Aguirre CP, JOHN, CDP #### [facility] [address] [place] [address] Vending Mechanic: Morro Hale MD Staging: Normal [facility] Comment on above: Result Comment: Stag e 1: Some kidney damage normal GFR Stage 2: Mild kidney damage GFR 60-89 Stage 3: Moderate kidney damage GFR 30-59 Stage 4: Severe kidney damage GFR 15-29 Stage 5: Severe kidney damage GFR <15 ESRD - chronic treatment by dialysis or transplant Performed By: #### Elliot Aguirre CP, URI, CDP #### [facility] [address] [place], [place] [id number] Vending Mechanic: Morro Hale MD Urea nitrogen [Mass/Vol] 10 mg/dL Normal 6-20 [facility] Comment on above: Performed By: #### Elliot Aguirre CP, JOHN, CDP #### [facility] [address] [place] [address] Vending Mechanic: Morro Hale MD Comprehensive Metabolic Pane [facility] 09-16-2021 Albumin [Mass/Vol] 3.4 g/dL Low 3.5 - 5.2 g/dL [facility] Albumin/Globulin [Mass ratio] 1.2 {ratio} [facility] ALP (Bld) [Catalytic activity/Vol] 98 U/L 35 - 104 U/L [facility] ALT [Catalytic activity/Vol] 10 U/L 5 - 33 U/L [facility] Anion gap [Moles/Vol] 8 mmol/L Low 9 - 17 mmol/L [facility] AST [Catalytic activity/Vol] 13 U/L <32 [facility] Bilirubin [Mass/Vol] 0.17 mg/dL Low 0.3 - 1.2 mg/dL [facility] Calcium [Mass/Vol] 9.1 mg/dL 8.6 - 10. 4 mg/dL [facility] Chloride [Moles/Vol] 103 mmol/L 98 - 107 mmol/L [facility] CO2 [Moles/Vol] 24 mmol/L 20 - 31 mmol/L [facility] Creatinine [Mass/Vol] 0.48 mg/dL Low 0.50 - 0.90 mg/dL [facility] Free PSA/Total PSA [Mass fraction] 6.2 g/dL Low 6.4 - 8.3 g/dL [facility] GFR >60 >60 mL/min [facility] GFR Non- >60 >60 mL/min [facility] Glucose [Mass/Vol] 162 mg/dL High 70 - 99 mg/dL [facility] Interpretation and review of laboratory results Abnormal [facility] Potassium [Moles/Vol] 3.9 mmol/L 3.7 - 5.3 mmol/L [facility] Sodium [Moles/Vol] 135 mmol/L 135 - 144 mmol/L [facility] Urea nitrogen (BldV) [Mass/Vol] 10 mg/dL 6 - 20 mg/dL [facility] Urea nitrogen/Creatinine (Bld) [Mass ratio] 21 High [facility] Laboratory - Chemistry and C hemistry - challengeon 09-16-2021 GFR/1.73 sq M.predicted MDRD (S/P/Bld) [Vol rate/Area] [facility] Comment on above: Average GFR for 30-3 9 years old: 107 mL/min/1.73sq m Chronic Kidney Disease: <60 mL/min/1.73sq m Kidney failure: <15 mL/min/1.73sq m eGFR calculated using average adult body mass. Additional eGFR calculator available at: http://www.[facility].Foodyn/multiple_crcl_2012.htm Stage 1: Some kidney damage normal GFR Stage 2: Mild kidney damage GFR 60-89 Stage 3: Moderate kidney damage GFR 30-59 Stage 4: Severe kidney damage GFR 15-29 Stage 5: Severe kidney damage GFR <15 ESRD - chronic treatment by dialysis or transplant Lactate Dehydrogenaseon 09-05 LDH [Catalytic activity/Vol] 174 U/L Normal 135-214 [facility] Comment on above: Performed By: #### L D, CP, URI, CDP #### [facility] [address] [place] [address] Vending Mechanic: Morro Hale MD LD 174 U/L 135 - 214 U/L [facility] No Panel Informationon 09-16 [facility] Protein / Creatinine Ratio, Urineon 09-16-2021 Creatinine, Ur 93.8 mg/dL 28.0 - 217.0 mg/dL [facility] Protein (U) [Mass/Vol] 7 mg/dL [facility] Comment on above: No normal range esta blished. Urine Total Protein Creatinine Ratio 0.07 [facility] Protein,Tot,[place] Uron 2021 Creatinine [Mass/Vol] 93.8 mg/dL Normal 28.0-217.0 [facility] Comment on above: Performed By: #### U RTPRT #### [facility] [address] [place], [place] [id number] Vending Mechanic: Morro Hale MD Tot Prot. Conc. 7 mg/dL Normal [facility] Comment on above: Result Comment: No n ormal range established. Performed By: #### U RTPRT #### [facility] [address] [place], [facility] Vending Mechanic: Morro Hale MD TP/Cre Ratio 0.07 Normal 0.00-0.20 [facility] Comment on above: Performed By: #### U RTPRT #### [facility] [address] [place], [place] [id number] Vending Mechanic: Morro Hale MD Uric Acidon 09-16-2021 Urate [Mass/Vol] 2.8 mg/dL Normal 2.4-5.7 [facility] Comment on above: Performed By: #### L D, CP, URI, CDP #### [facility] [address] [place], [place] [id number] Vending Mechanic: Morro Hale MD Urate [Mass/Vol] 2.8 mg/dL 2.4 - 5.7 mg/dL [facility] US OB Limitedon 09-07-2021 US OB Limited FINDINGS: Single viable intrauterine . BEN 17.0 cm. Closed cervix 4.3 cm length. Cephalic presentation. IMPRESSION: 1. Single viable intrauterine , cephalic presentation. 2. BEN 17.0 cm. Report reported and signed by Ruben Howell on 09/07/2021 1019 Normal [facility] Patient Support Assistant COVID Quick Testingon 2020 Result Negative [employer] Other Quick Strepon 06-14-2021 S. pyogenes Org specific cx Ql (Throat) Negative [employer] Other Quick Strep [employer] Other MISC LABon 04-19-2021 MISC LAB Normal [facility] Comment on above: Order Comment: [place] [place] Name: INHERITEST CARRIER SCREEN [id number] CPT 34252;[id number] Result Comment: See report. Scanned copy available in EMR. PERFORMED BY: [place] [address] PATHOLOGIST CHILDCARE TEACHER FILEMON VARGAS M.D. Performed By: #### M ISC LAB #### [place] [id number] [facility] ABO, External Resulton 03-22 ABO, External Result o [employer] Phone: C. Trachomatis, External Res [facility] 03-22-2021 C. Trachomatis, External Result Negative [employer] Phone: HIV, External Resulton 03-22 HIV, External Result Non-Reactive [employer] Phone: Hepatitis B, External Result on 03-22-2021 Hep B, External Result Non-Reactive [employer] Phone: N. Gonorrhoeae, External Res [facility] 03-22-2021 N. Gonorrhoeae, External Result Negative [employer] Phone: No Panel InformationOrdered By: Nerissa Lerma on 03-22-2021 [facility] No Panel Informationon 03-22 Verified with Jacqueline Manuel RN [employer] Phone: [employer] Phone: RPR, External Labon 03-22-20 21 RPR, External Result Non-Reactive [employer] Work Phone: Rh Factor, External ResultOr dered By: Nerissa Lerma on 03-22-2021 [facility], External Result + [facility], External Resu lton 03-22-2021 Rubella Titer, External Result immune [facility] Work Phone: Coding Summaryon 04-23-2017 Coding Summary CODING DATE: 017 [facility] STATUS: Home PAYOR: [employer] ADMIT DX: [...] Mccracken Date Saved: 04/23/2017 01:25 pm Normal ED Clinical Summaryon 2016 ED Clinical Summary ? Urgent [address] [place], [place] [id number] clinical SummaryPERSON INFORMATIONName: SOLANGE BROWER Age: 32 Years Sex: FEMALEDOB: [birth year] MRN: Acct#:Visit Reason: Lower leg pain-swelling; LEFT LEG PAIN AND SWELLING Arrival:04/12/17 12:10:00 Discharge: 04/12/17 12:37:00LOS: 000 00:27 Check In: 04/12/17 12:10:00 Checkout: 04/12/17 12:37:00Address:[address] [facility] [address]PAJ: Henry Mcqueen INFORMATIONProvider Role Assigned UnassignedBentley Amin PA-C ED PA 04/12/17 12:23:22VITALS INFORMATIONVital Sign Triage LatestTemperature TympanicTemperature Temporal ArteryPulse Rate 97 bpm 97 bpmO2 Sat 98 % 98 %Respiratory Rate 20 br/min 20 br/minBlood Pressure 120 mmHg/90 mmHg 120 mmHg/90 mmHgMEDICAL INFORMATIONMedications Given:Allergy Information:PHYSICIAN DOCUMENTATIONDISCHARGE INFORMATION:Discharge Disposition: HomeDischarge Location: HomePATIENT EDUCATION INFORMATIONInstructions: Muscle Strain, Rgul-cf-CzxhCotftq-Up:With: Address: When:Rober Loya [address] [place] [address], [address] [place], [phone] Business (2) Within 3 to 5 days, only if neededWith: Address: When:Edward Mcqueen [address] [place] [address] Business (1) Within 3 to 5 daysDIAGNOSIS:Muscle strain of lower legComment: [facility] ED Note - Physicianon 2016 ED Note - Physician Patient: NILTON BROWER : 32 years Sex: FEMALE : [birth year]Associated Diagnoses: Muscle strain of lower legAuthor: Bentley Amin-CHistory of Present IllnessThis is a 32 year old here today with concerns of feeling a pop in her calf while 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 [...] mmHg SpO2 98 % O2 Flow 0 L/min.Pdfezojtipti52/06/17 12:15 EDT Height/Length Dosing 157.4 cm Weight [...] ice and elevate. OTC Motrin for pain, Streetman as needed for severe pain. Return with new, or worsening symptoms, or symptoms failing to improve as expected and the patient voiced their understanding. Questions answered. Follow-up with their family doctor as directed, return here sooner as needed. See ortho as needed.Impression and PlanDiagnosisMuscle strain of lower leg ([id number] S86.919A, Discharge, Medical)PlanCondition: Stable.Disposition: Discharged: Time 04/12/17 12:36:00, to home.Prescriptions: Launch prescriptionsPharmacy:[facility] 5 mg-325 mg oral tablet (Prescribe): 1 tab(s), PO, q6hr, for 3 day(s), PRN: for pain, 12 tab(s), 0 Refill(s).Patient was given the following educational materials: Muscle Strain, Nzbi-zv-Mbuj, Muscle Strain, Ldly-jb-Qmmg.Follow up with: Edward Mcqueen Within 3 to [...] on: 04/12/2017 12:51 EDT] Bentley Amin PA-C [facility] ED Patient Summaryon 017 ED Patient Summary ? Urgent [address] [place] [address] [id number] pATIENT DISCHARGE INSTRUCTIONSPatient InformationName: SOLANGE BROWER Age: 32 YearsDate of : [birth year]MRN: [id number] For Visit: Lower leg pain-swelling; LEFT LEG PAIN AND SWELLINGArrival Time: 04/12/17 12:10:00Phone: Primary Care Physician: Pat Mcqueen Physician: Bentley Aminomment:Patient EducationWith: Address: When:Rober Loya [address] [place] [address] Business (2) Within 3 to 5 days, only if neededWith: Address: When:Edward Mcqueen [address] [place] [address] Business (1) Within 3 to 5 [...] Released: 04/02/2009 Document Revised: 04/14/2014 Document Reviewed: 01/21/2014Trey[employer] Interactive Patient Education ?2016 [employer]Medication Information:The exam and treatment you received today in the [facility] Emergency Department were for an urgent problem and are not intended as complete care. It is important for you to follow up with a doctor, nurse practitioner, or physician?s junior administrative assistant for ongoing care. If your symptoms [...] number so we can reach you if necessary. Emergency Department has provided you with a complete list of medications post discharge. Please inform your scanner supervisor/provider of your visit and for further instruction on these medications. Any specific questions regarding your chronic medications and dosages should be discussed with your primary care physician(s) and/or pharmacist. New MedicationsPrinted Prescriptionsacetaminophen-h ydrocodone (Streetman 5 mg-325 mg oral tablet) 1 tab(s) Oral Every 6 hours as needed for pain for 3 Days. Refills: 0.Visit InformationVisit Diagnosis:Diagnoses This Visit Lower leg pain-swelling ([id number]) Muscle strain of lower leg (S86.919A)If you [...] Disease Control and Prevention March 2014 [facility] [place] 017 Urgent Care Record ? Urgent [address] [place] [address] pATIENT DISCHARGE INSTRUCTIONSPatient InformationName: SOLANGE BROWER Age: 32 YearsDate of : [birth year]MRN: [id number] For Visit: Lower leg pain-swelling; LEFT LEG PAIN AND SWELLINGArrival Time: 04/12/17 12:10:00Phone: Primary Care Physician: Pat Mcqueen Physician: Bentley Amin PA-CComment:Visit Diagnosis:Diagnoses This Visit Lower leg pain-swelling ([id number]) Muscle strain of lower leg (S86.919A)If you [...] any legal documentsWith: Address: When:Rober Loya [address] [place] [address], [address] [place], [phone] Business (2) Within 3 to 5 days, only if neededWith: Address: When:Edward Mcqueen [address] [place], [place] [id number] Business (1) Within 3 to 5 daysMedication Information:The exam and treatment you received today in the [facility] were for an urgent problem and are not intended as complete care. It is important for you to follow up with a doctor, nurse practitioner, or physician?s junior administrative assistant for ongoing care. If your symptoms [...] number so we can reach you if necessary. Urgent [facility] has provided you with a complete list of medications post discharge. Please inform your scanner supervisor/provider of your visit and for further instruction on these medications. Any specific questions regarding your chronic medications and dosages should be discussed with your primary care physician(s) and/or pharmacist. New MedicationsPrinted Prescriptionsacetaminophen-h ydrocodone (Streetman 5 mg-325 mg oral tablet) 1 tab(s) [...] Reviewed: 01/21/2014Luz [employer] Interactive Patient Education ?2016 [employer]. Viruses or BacteriaWhat?s got you sick?Antibiotics only [...] Antibiotics Jenn.[facility]. Department [facility] Health and Human ServicesWay[facility] Hospitalers for Disease Control and Prevention March 2014 Normal Vital Signs Date Time Vital Sign Value Performing Clinician Facility 11-16-2024 15:34-0400 Body height 157.48 cm [facility] 11-16-2024 15:34-0400 Body mass index (BMI) [Ratio] 29.4 kg/m2 [facility] 11-16-2024 15:34-0400 Body weight 73.02 kg [facility] 11-16-2024 15:34-0400 Diastolic blood pressure 79 mm[Hg] [facility] 11-16-2024 15:34-0400 Heart rate 51 /min [facility] 11-16-2024 15:34-0400 Respiratory rate 12 /min [facility] 11-16-2024 15:34-0400 Systolic blood pressure 131 mm[Hg] [facility] 08-24-2024 09:02-0500 Body height 157.5 cm Betito Carola DO Work Phone: [facility] 08-24-2024 09:02-0500 Body mass index (BMI) [Ratio] 29.29 kg/m2 Betito Carola DO Work Phone: [facility] 08-24-2024 09:02-0500 Body weight 72.63 kg Betito Carola DO Work Phone: [facility] 08-24-2024 09:02-0500 Diastolic blood pressure 70 mm[Hg] Betito Carola DO Work Phone: [facility] 08-24-2024 09:02-0500 Systolic blood pressure 110 mm[Hg] Betito Carola DO Work Phone: [facility] 08-18-2024 13:27-0500 Body height 157.48 cm [facility] 08-18-2024 13:27-0500 Body mass index (BMI) [Ratio] 29.3 kg/m2 [facility] 08-18-2024 13:27-0500 Body weight 72.8 kg [facility] 08-18-2024 13:27-0500 Diastolic blood pressure 86 mm[Hg] [facility] 08-18-2024 13:27-0500 Heart rate 73 /min [facility] 08-18-2024 13:27-0500 Respiratory rate 12 /min [facility] 08-18-2024 13:27-0500 Systolic blood pressure 142 mm[Hg] [facility] 07-31-2024 10:52-0500 Body height 157.5 cm Crystal Calhoun MD Work Phone: [facility] 07-31-2024 10:52-0500 Body mass index (BMI) [Ratio] 29.07 kg/m2 Crystal Calhoun MD Work Phone: [facility] 07-31-2024 10:52-0500 Body weight 72.12 kg Crystal Calhoun MD Work Phone: [phone] [place] [address] 07-31-2024 10:52-0500 Diastolic blood pressure 82 mm[Hg] Crystal Calhoun MD Work Phone: [facility] 07-31-2024 10:52-0500 Heart rate 73 /min Crystal Calhoun MD Work Phone: [facility] 07-31-2024 10:52-0500 SaO2% (BldA) [Mass fraction] 100 % Crystal Calhoun MD Work Phone: [facility] 07-31-2024 10:52-0500 Systolic blood pressure 110 mm[Hg] Crystal Calhoun MD Work Phone: [facility] 07-16-2024 14:34-0500 Body mass index (BMI) [Ratio] 29.63 kg/m2 Dianne Dang CNM Work Phone: [facility] 07-16-2024 14:34-0500 Body weight 73.48 kg Dianne Dang CNM Work Phone: [facility] 07-16-2024 14:34-0500 Diastolic blood pressure 70 mm[Hg] Dianne Dang CNM Work Phone: [facility] 07-16-2024 14:34-0500 Systolic blood pressure 112 mm[Hg] Dianne Dang CNM Work Phone: [facility] 03-23-2024 10:36-0400 Body height 157.5 cm Mick Clintonnrick PA Work Phone: [facility] 03-23-2024 10:36-0400 Body mass index (BMI) [Ratio] 29.95 kg/m2 Mick Yenrick PA Work Phone: [facility] 03-23-2024 10:36-0400 Body weight 74.3 kg Mick Yenrick PA Work Phone: [facility] 03-23-2024 10:36-0400 Diastolic blood pressure 72 mm[Hg] Mick Yenrick PA Work Phone: [facility] 03-23-2024 10:36-0400 Heart rate 75 /min Mick Yenrick PA Work Phone: [facility] 03-23-2024 10:36-0400 SaO2% (BldA) [Mass fraction] 100 % Mick Yenrick PA Work Phone: [facility] 03-23-2024 10:36-0400 Systolic blood pressure 112 mm[Hg] Mick Yenrick PA Work Phone: [facility] 12-23-2023 15:27-0400 Body height 157.48 cm [facility] 12-23-2023 15:27-0400 Body mass index (BMI) [Ratio] 30.2 kg/m2 [facility] 12-23-2023 15:27-0400 Body weight 74.84 kg [facility] 12-23-2023 15:27-0400 Diastolic blood pressure 78 mm[Hg] [facility] 12-23-2023 15:27-0400 Heart rate 67 /min [facility] 12-23-2023 15:27-0400 Respiratory rate 12 /min [facility] 12-23-2023 15:27-0400 Systolic blood pressure 122 mm[Hg] [facility] 10-14-2021 07:24-0400 Body temperature 97.39 [degF] Bryanna Pool SPECIAL PROJECTS COORDINATOR - CNM Work Phone: [facility] [employer] 10-14-2021 07:24-0400 Diastolic blood pressure 75 mm[Hg] Bryanna Pool SPECIAL PROJECTS COORDINATOR - CNM Work Phone: [employer] 10-14-2021 07:24-0400 Heart rate 67 /min Bryanna Pool SPECIAL PROJECTS COORDINATOR - CNM Work Phone: [employer] 10-14-2021 07:24-0400 Respiratory rate 16 /min Bryanna Pool SPECIAL PROJECTS COORDINATOR - CNM Work Phone: [employer] 10-14-2021 07:24-0400 Systolic blood pressure 119 mm[Hg] Bryanna Pool SPECIAL PROJECTS COORDINATOR - CNM Work Phone: [employer] 10-13-2021 06:01-0400 SaO2% (BldA) [Mass fraction] 96 % Bryanna Pool SPECIAL PROJECTS COORDINATOR - CNM Work Phone: [employer] 10-12-2021 10:22-0400 Body mass index (BMI) [Ratio] 52.13 kg/m2 Bryanna Pool SPECIAL PROJECTS COORDINATOR - CNM Work Phone: [employer] 10-12-2021 10:22-0400 Body weight 129.28 kg Bryanna Pool SPECIAL PROJECTS COORDINATOR - CNM Work Phone: [employer] 10-07-2021 14:56-0400 Diastolic blood pressure 64 mm[Hg] Dianne Dnag SPECIAL PROJECTS COORDINATOR - CNM Work Phone: [employer] 10-07-2021 14:56-0400 Heart rate 76 /min Dianne Dang SPECIAL PROJECTS COORDINATOR - CNM Work Phone: [employer] 10-07-2021 14:56-0400 Systolic blood pressure 123 mm[Hg] Dianne Dang SPECIAL PROJECTS COORDINATOR - CNM Work Phone: [employer] 10-07-2021 14:23-0400 Respiratory rate 18 /min Dianne Dang SPECIAL PROJECTS COORDINATOR - CNM Work Phone: [employer] 09-30-2021 14:03-0400 Body height 157.5 cm Dianne Dang SPECIAL PROJECTS COORDINATOR - CNM Work Phone: [employer] 09-30-2021 14:03-0400 Body mass index (BMI) [Ratio] 51.58 kg/m2 Dianne Dang SPECIAL PROJECTS COORDINATOR - CNM Work Phone: [employer] 09-30-2021 14:03-0400 Body temperature 98.01 [degF] Dianne Rosaleso SPECIAL PROJECTS COORDINATOR - CNM Work Phone: [employer] 09-30-2021 14:03-0400 Body weight 127.91 kg Dianne Dang SPECIAL PROJECTS COORDINATOR - CNM Work Phone: [employer] 09-23-2021 15:35-0400 Body temperature 98.2 [degF] Dianne Rosaleso SPECIAL PROJECTS COORDINATOR - CNM Work Phone: [employer] 09-23-2021 15:35-0400 Diastolic blood pressure 73 mm[Hg] Dianne Rosaleso SPECIAL PROJECTS COORDINATOR - CNM Work Phone: [employer] 09-23-2021 15:35-0400 Heart rate 96 /min Dianne Rosaleso SPECIAL PROJECTS COORDINATOR - CNM Work Phone: [employer] 09-23-2021 15:35-0400 Respiratory rate 18 /min Dianne Rosaleso SPECIAL PROJECTS COORDINATOR - CNM Work Phone: [employer] 09-23-2021 15:35-0400 Systolic blood pressure 118 mm[Hg] Dianne Rosaleso SPECIAL PROJECTS COORDINATOR - CNM Work Phone: [employer] 09-16-2021 15:59-0500 Diastolic blood pressure 72 mm[Hg] Dianne Dang APRN - CNM Work Phone: [employer] 09-16-2021 15:59-0500 Heart rate 77 /min Dianne Dang APRN - CNM Work Phone: [employer] 09-16-2021 15:59-0500 Systolic blood pressure 141 mm[Hg] Dianne Dang APRN - CNM Work Phone: [employer] 09-16-2021 14:25-0500 Body height 157.5 cm Dianne Dang APRN - CNM Work Phone: [employer] 09-16-2021 14:25-0500 Body mass index (BMI) [Ratio] 49.38 kg/m2 Dianne Dang APRN - CNM Work Phone: [employer] 09-16-2021 14:25-0500 Body temperature 97.81 [degF] Dianne Dang SPECIAL PROJECTS COORDINATOR - CNM Work Phone: [employer] 09-16-2021 14:25-0500 Body weight 122.47 kg Dianne Dang APRN - CNM Work Phone: [employer] 09-16-2021 14:25-0500 Respiratory rate 16 /min Dianne Dang APRN - CNM Work Phone: [employer] 09-09-2021 14:06-0500 Diastolic blood pressure 68 mm[Hg] Dianne Dang APRN - CNM Work Phone: [employer] 09-09-2021 14:06-0500 Heart rate 78 /min Dianne Dang APRN - CNM Work Phone: [employer] 09-09-2021 14:06-0500 Systolic blood pressure 124 mm[Hg] Dianne Dang SPECIAL PROJECTS COORDINATOR - CNM Work Phone: [employer] 09-09-2021 14:04-0500 Body height 158.8 cm Dianne Dang APRN - CNM Work Phone: [employer] 09-09-2021 14:04-0500 Body mass index (BMI) [Ratio] 49.5 kg/m2 Dianne Dang SPECIAL PROJECTS COORDINATOR - CNM Work Phone: [employer] 09-09-2021 14:04-0500 Body temperature 98.01 [degF] Dianne Dang SPECIAL PROJECTS COORDINATOR - CNM Work Phone: [employer] 09-09-2021 14:04-0500 Body weight 124.74 kg Dianne Dang SPECIAL PROJECTS COORDINATOR - CNM Work Phone: [employer] 09-09-2021 14:04-0500 Respiratory rate 18 /min Dianne Dang SPECIAL PROJECTS COORDINATOR - CNM Work Phone: [employer] 06-14-2021 15:00-0500 Body height 157.48 cm Margie Polina Other [employer] Other 06-14-2021 15:00-0500 Body mass index (BMI) [Ratio] 45.72 kg/m2 Margie Polina Other [employer] Other 06-14-2021 15:00-0500 Body temperature 98.3 [degF] Margie Driscollmond Other [employer] Other 06-14-2021 15:00-0500 Body weight 113.4 kg Margie Fish Other [employer] Other 06-14-2021 15:00-0500 Respiratory rate 18 /min Margie Polina Other [employer] Other 06-14-2021 15:00-0500 SaO2% (BldA) [Mass fraction] 98 % Margieadelia Fish Other [employer] Other Encounters Encounter Date Encounter Type Care Provider Facility Start: 01-13-2025 End: 01-13-2025 Telephone encounter Emilie Almazan CMA [facility] Start: 01-12-2025 End: 01-12-2025 Telephone encounter Emilie Almazan CMA [facility] Start: 01-11-2025 End: 01-11-2025 Telephone encounter [facility] Start: 01-01-2025 End: 01-01-2025 ambulatory [facility] Start: 11-19-2024 ambulatory [facility] Start: 11-19-2024 End: 11-19-2024 ambulatory [facility] Start: 11-16-2024 End: 11-16-2024 ambulatory [facility] Work Phone: Start: 11-16-2024 End: 11-16-2024 Patient encounter procedure [facility] Work Phone: Start: 11-13-2024 Non-patient / Non-visit [facility] Work Phone: Start: 10-13-2024 End: 10-13-2024 ambulatory [facility] Start: 09-30-2024 End: 09-30-2024 Refill Andra Colorado RN [facility] Start: 09-03-2024 Non-patient / Non-visit [facility] Work Phone: Start: 09-03-2024 Non-patient / Non-visit [facility] Work Phone: Start: 09-02-2024 End: 09-02-2024 ambulatory [facility] Start: 09-02-2024 Non-patient / Non-visit [facility] Work Phone: Start: 08-27-2024 End: 08-27-2024 Office outpatient visit 25 minutes Blane Healy MD Work Phone: [facility] Comment on above: LOC (loss of conscio usness) (CMS-HCC) (Primary Dx) Start: 08-27-2024 End: 08-27-2024 ambulatory [facility] Start: 08-24-2024 End: 08-24-2024 Bamboo flowsheet Betito Craola DO Work Phone: [facility] Start: [...] Not Available Start: 08-18-2024 End: 08-18-2024 ambulatory [facility] Work Phone: Start: 08-18-2024 End: 08-18-2024 Patient encounter procedure [facility] Phys[facility] Work Phone: Start: 08-17-2024 Non-patient / Non-visit [facility] Phys[facility] Work Phone: Start: 07-31-2024 End: 07-31-2024 Office outpatient visit 15 minutes Nelda Paniagua MD Work Phone: [facility] Comment on above: Palpitations (Primar y Dx); PFO (patent foramen ovale); S/P percutaneous patent foramen ovale closure; TIA (transient ischemic attack) Start: 07-30-2024 End: 07-30-2024 Telephone encounter Emilie Almazan [facility] Start: 07-27-2024 End: 07-28-2024 Telephone encounter Estefania Mitchell [facility] Start: 07-16-2024 End: 07-16-2024 Office [...] Phone: [facility] Start: 06-18-2024 ambulatory [facility] Start: 06-17-2024 End: 06-17-2024 Telephone encounter Mick DE LA PAZ Work Phone: [facility] Start: 05-26-2024 End: 06-12-2024 Telephone encounter Nohemy Kingsley RN [facility] Start: 04-27-2024 End: 04-27-2024 ambulatory [facility] Start: 03-23-2024 End: 03-23-2024 Office outpatient visit 25 minutes Mick DE LA PAZ Work Phone: [facility] Comment on above: PFO (patent foramen ovale) (Primary Dx); S/P percutaneous patent foramen ovale closure Start: 03-23-2024 End: 03-23-2024 ambulatory [facility] Tamie [facility] Start: 03-13-2024 End: 03-13-2024 ambulatory P KANU DEGROOT [facility] Start: 03-11-2024 End: 03-11-2024 Orders Only Trinidad Ludwig RN [facility] Comment on above: PFO (patent foramen ovale) (Primary Dx); History of delivery Start: 03-05-2024 End: 03-05-2024 Telephone encounter Mick DE LA PAZ Work Phone: [facility] Comment on above: PFO Closure Reminder Start: 02-17-2024 End: 02-17-2024 Phys/qhp telephone evaluation 11-20 min Dante Degroot MD Work Phone: [facility] Comment on above: TIA (transient ische kunal attack) (Primary Dx) Start: 02-17-2024 End: 02-17-2024 ambulatory KANU DEGROOT [facility] Start: 02-04-2024 End: 02-04-2024 Chart abstracting Dante Degroot MD Work Phone: [facility] Start: 01-29-2024 End: 01-29-2024 Office outpatient visit 25 minutes Blane Healy MD Work Phone: [facility] Comment on above: TIA (transient ische kunal attack) (Primary Dx) Start: 01-29-2024 End: 01-29-2024 ambulatory [facility] Start: 01-27-2024 End: 01-27-2024 ambulatory DIANNE DANG Not Available Start: 01-13-2024 End: 01-13-2024 ambulatory [facility] Maxi [facility] Start: 12-29-2023 ambulatory EDWARD MCQUEEN [facility] Start: 12-26-2023 ambulatory MICK JETT [facility] Start: 12-26-2023 End: 12-26-2023 Documentation procedure Mick DE LA PAZ Work Phone: [facility] Start: 12-26-2023 End: 12-27-2023 Telephone encounter Maki David RN [facility] Start: 12-23-2023 End: 12-23-2023 ambulatory [facility] Work Phone: Start: 12-23-2023 End: 12-23-2023 Patient encounter procedure [facility] Physician [facility] Work Phone: Start: 12-18-2023 End: 12-18-2023 Telephone encounter Nohemy Kingsley RN [facility] Start: 12-18-2023 ambulatory EDWARD MCQUEEN [facility] Start: 12-18-2023 Non-patient / Non-visit [facility] Phys[facility] Work Phone: Start: 12-17-2023 End: 12-26-2023 Emergency department patient visit EDWARD MCQUEEN [facility] Start: 12-17-2023 Non-patient / Non-visit [facility] Phys[facility] Work Phone: Start: 12-16-2023 End: 12-16-2023 ambulatory DIANNE DANG Not Available Start: 05-03-2023 End: 05-03-2023 ambulatory Edward Mcqueen Other [employer] Other Start: 05-03-2023 Office outpatient vi sit 15 minutes Edward Ball [facility] Start: 04-23-2023 End: 04-23-2023 ambulatory Edward Ball Other [employer] Other Start: 04-23-2023 Telephone encounter Edward Ball [facility] Start: 04-22-2023 End: 04-22-2023 ambulatory Edward Ball Other [employer] Other Start: 04-22-2023 Telephone encounter Edward Ball FP [facility] Start: 04-09-2023 End: 04-09-2023 ambulatory Edward Ball Other [employer] Other Start: 04-09-2023 Office outpatient vi sit 15 minutes Edward Ball [facility] Start: 09-20-2022 End: 09-20-2022 ambulatory Edward Ball Other [employer] Other Start: 09-20-2022 Telephone encounter Edward Ball [facility] Start: 08-29-2022 End: 08-29-2022 ambulatory Edward Ball Other [employer] Other Start: 08-29-2022 Office outpatient vi sit 15 minutes Edward Ball [facility] Start: 08-17-2022 Telephone encounter Edward Mcqueen FP [facility] Start: 08-17-2022 End: 08-18-[address] EDWARD MCQUEEN Facility:[facility] Start: 08-17-2022 End: 08-18-2022 ambulatory BERTO ZIMMERMAN Facility:[facility] Start: 10-12-2021 End: 10-14-2021 Evaluation and management of inpatient BRYANNA BARTH [facility] Start: 10-12-2021 End: 10-14-2021 Evaluation and management of inpatient Bryanna Barth SPECIAL PROJECTS COORDINATOR CNM Work Phone: [facility] Labor and Delivery Comment on above: Born by sec tion (Primary Dx) Start: 10-07-2021 End: 10-07-2021 ambulatory DIANNE FLORO [facility] Start: 10-07-2021 End: 10-07-2021 Subsequent hospital visit by physician Dianne Dang APRN - ELINOR Work Phone: [facility] Comment on above: Diet controlled gest ational diabetes mellitus (GDM) in third trimester Start: 09-30-2021 End: 09-30-2021 ambulatory DIANNE FLORO [facility] Start: 09-30-2021 End: 09-30-2021 Subsequent hospital visit by physician Dianne Clark CNM Work Phone: [facility] Start: 09-23-2021 End: 09-23-2021 ambulatory DIANNE FLORO [facility] Start: 09-23-2021 End: 09-23-2021 Subsequent hospital visit by physician Dianne Clark [facility] Work Phone: [facility] Comment on above: Diet controlled gest ational diabetes mellitus (GDM) in third trimester Start: 09-16-2021 End: 09-16-2021 ambulatory DIANNE FLORO [facility] Start: 09-16-2021 End: 09-16-2021 Subsequent hospital visit by physician Dianne Dang APRN - ELINOR Work Phone: [facility] Comment on above: Diet controlled gest ational diabetes mellitus (GDM) in third trimester Start: 09-09-2021 End: 09-09-2021 ambulatory DIANNE JAD [facility] Start: 09-09-2021 End: 09-09-2021 Subsequent hospital visit by physician Dianne Conniemiguelina MEYERSN - CNM Work Phone: [facility] Labor and Delivery Comment on above: Diet controlled gest ational diabetes mellitus (GDM) in third trimester Start: 09-02-2021 End: 09-02-2021 ambulatory DIANNE JAD [facility] Start: 06-14-2021 (URG) Urgent Care Visit Margie aguirre [facility] Jose Angel Start: 06-14-2021 End: 06-14-2021 ambulatory Margie Fish Other [employer] Other Start: 04-12-2017 End: 04-12-2017 Ambulatory Bentley Amin Facility: Procedures Date Procedure Procedure Detail Performing Clinician Start: 07-31-2024 Ecg routine ecg w/le ast 12 lds w/i&r Crystal Calhoun MD Work Phone: Start: 02-17-2024 Follow-up visit Follow-up Dante DEGROOT Start: 10-14-2021 GLUCOSE, WHOLE BLOOD Zoila Rosaleso SPECIAL PROJECTS COORDINATOR - CNM Work Phone: Start: 10-13-2021 GLUCOSE, WHOLE BLOOD Zoila Dang SPECIAL PROJECTS COORDINATOR - CNM Work Phone: Start: 10-13-2021 GLUCOSE, WHOLE BLOOD Va tyler Rosaleso SPECIAL PROJECTS COORDINATOR - CNM Work Phone: Start: 10-13-2021 GLUCOSE, WHOLE BLOOD Va tyler Rosaleso SPECIAL PROJECTS COORDINATOR - CNM Work Phone: Start: 10-13-2021 Assay of magnesium Mendy Dang SPECIAL PROJECTS COORDINATOR - CNM Work Phone: Start: 10-13-2021 Blood count hemoglobin Dianne Dang SPECIAL PROJECTS COORDINATOR - CNM Work Phone: Start: 10-13-2021 GLUCOSE, WHOLE BLOOD Zoila Dang SPECIAL PROJECTS COORDINATOR - CNM Work Phone: Start: 10-13-2021 Assay of magnesium Mendy Dang SPECIAL PROJECTS COORDINATOR - CNM Work Phone: Start: 10-12-2021 GLUCOSE, WHOLE BLOOD Zoila Dang SPECIAL PROJECTS COORDINATOR - CNM Work Phone: Start: 10-12-2021 GLUCOSE, WHOLE BLOOD Zoila Dang SPECIAL PROJECTS COORDINATOR - CNM Work Phone: Start: 10-12-2021 GLUCOSE, WHOLE BLOOD Zoila Dang SPECIAL PROJECTS COORDINATOR - CNM Work Phone: Start: 10-12-2021 Antibody screen Eveline nazario Pool SPECIAL PROJECTS COORDINATOR - CNM Work Phone: Start: 10-12-2021 Blood typing serolog ic abo Bryanna E Pool SPECIAL PROJECTS COORDINATOR - CNM Work Phone: Start: 10-12-2021 End: 10-12-2021 Comprehensive metabolic panel Bryanna Barth SPECIAL PROJECTS COORDINATOR - CNM Work Phone: Start: 10-12-2021 Drug screen class list a Bryanna Armijo Pool SPECIAL PROJECTS COORDINATOR - CNM Work Phone: Start: 10-12-2021 Urnls dip stick/tabl et rgnt auto w/o microscopy Bryanna E Pool SPECIAL PROJECTS COORDINATOR - CNM Work Phone: Start: 10-07-2021 nonstress test Va tyler Dang SPECIAL PROJECTS COORDINATOR - CNM Work Phone: Start: 09-26-2021 GBS, EXTERNAL RESULT Derick Purvis MD Start: 09-16-2021 End: 09-16-2021 Comprehensive metabolic panel Ai Burnham SPECIAL PROJECTS COORDINATOR - CNM Work Phone: Start: 09-16-2021 nonstress test Va tyler Dang SPECIAL PROJECTS COORDINATOR - CNM Work Phone: Start: 03-22-2021 ABO, [...] Td Vaccines (7 - Td or Tdap) [facility] Start: 07-30-2028 DTaP/Tdap/Td vaccine (7 - Td or Tdap) DTaP/Tdap/Td vaccine (7 - Td or Tdap) [facility] Start: 07-31-2025 Adult BMI Screening Adult BMI Screening [facility] Start: 07-31-2025 Tobacco Screening Tobacco Screening [facility] Start: 03-23-2025 Adult BMI Screening Adult BMI Screening [facility] Start: 03-23-2025 Tobacco Screening Tobacco Screening [facility] Start: 03-08-2025 Influenza vaccination Influenza Vaccine [facility] Start: 02-16-2025 Tobacco Screening Tobacco Screening [facility] Start: 01-13-2025 End: 01-13-2025 Patient encounter procedure 01/13/2025 10:00 AM EDT Office Visit [facility] [address] [place] [address] Rafat Blakely MD [address] [place] [address] [facility] Start: 01-12-2025 Tobacco Screening Tobacco Screening [facility] Start: 10-05-2024 End: 10-05-2024 Patient encounter procedure 10/05/2024 9:30 AM EDT Procedure Visit [facility] [address] [place] [phone] Betito Srivastava, DO [address] [place] [address] [facility] Start: 08-27-2024 End: 08-27-2024 Telemedicine consultation with patient 08/27/2024 1:00 PM EST Telemedicine [facility] [address] [place] [phone] Blane Healy MD [address] [place] [address], [address], [address] [place] [address] [facility] Start: 08-24-2024 End: 08-24-2025 DHEA DHEA Lab Routine Irregular menstrual cycle Menorrhagia with irregular cycle Expected: 08/24/2024 (Approximate), Expires: 08/24/2025 [facility] Comment on above: Expected: 08/24/2024 (Approximate), Expi res: 08/24/2025 Start: 08-24-2024 End: 08-24-2025 US Pelvis US Pelvis w/ TV Imaging Routine Irregular menstrual cycle Menorrhagia with irregular cycle Expected: 08/24/2024, Expires: 08/24/2025 [facility] Comment on above: Expected: 08/24/2024, Expires: Start: 08-24-2024 End: 08-24-2024 Patient encounter procedure 08/24/2024 9:00 AM EST Office Visit [facility] [address] [facility] [place] [phone] Betito Srivastava, DO [address] [place] [address] Arrived [facility] Comment on above: Arrived Start: 07-31-2024 End: 07-31-2024 Patient encounter procedure 07/31/2024 11:15 AM EST Office Visit [facility] [address] [place] [address] Nelda Paniagua MD [address] [place] [address] Crystal Calhoun MD [address] [place] [address] [facility] Start: 07-20-2024 End: 07-20-2024 Patient encounter procedure 07/20/2024 11:30 AM EST Office Visit [facility] [address] [place] [phone] Nelda Paniagua MD [address] [place] [address] [facility] Start: 07-16-2024 End: 07-16-2024 Patient encounter procedure 07/16/2024 2:30 PM EST Office Visit [facility] [address] [place] [phone] Dianne Dang, CN [address] [place] [address] Arrived [facility] Comment on above: Arrived Start: 06-17-2024 End: 06-17-2025 Wireless Telemetry (In Office) Wireless Telemetry (In Office) Cardiac Services Routine Palpitations Expected: 06/17/2024, Expires: 06/17/2025 [facility] Work Phone: Comment on above: Expected: 06/17/2024, Expires: Start: 04-27-2024 End: 04-27-2024 Patient encounter procedure 04/27/2024 10:30 AM EDT Appointment [facility] - Cardiovascular [address] [place] [address] [facility] - [facility] Start: 04-22-2024 End: 03-23-2025 Echo complete W/O contrast Echo complete W/O contrast Echocardiography Routine PFO (patent foramen ovale) S/P percutaneous patent foramen ovale closure Expected: 04/22/2024 (Approximate), Expires: 03/23/2025 [facility] Work Phone: Comment on above: Expected: 04/22/2024 (Approximate), Expi res: 03/23/2025 Start: 03-23-2024 End: 03-23-2024 Patient encounter procedure 03/23/2024 10:45 AM EDT Office Visit [facility] [address] [place] [phone] Mick Jett, PA [address] [phone] [facility] Start: 03-13-2024 End: 03-13-2024 Admission to same day surgery center 03/13/2024 7:30 AM EDT - 03/13/2024 9:30 AM EDT Surgery [facility] [address] [place] [phone] Dante Degroot MD [address] [place], [place] [phone] Patent foramen ovale closure with cath/patch/ICE [95856 (CPT )] [facility] Comment on above: Patent foramen ovale closure with cath/p atch/ICE [83641 (CPT )] Start: 03-13-2024 Subsequent hospital visit by physician 03/13/2024 7:30 AM EDT Hospital Encounter [facility] - Cardiac Cath [address] [place] [phone] Dante Degroot MD [address] [place] [address] PFO (patent foramen ovale) [facility] Comment on above: PFO (patent foramen ovale) Start: 03-12-2024 End: 03-12-2024 Admission to same day surgery center 03/12/2024 2:30 PM EDT - 03/12/2024 4:30 PM EDT Surgery [facility] [address] [place] [address] Dante Dgeroot MD [address] [place] [address] Patent foramen ovale closure with cath/patch/ICE [77132 (CPT )] [facility] Comment on above: Patent foramen ovale closure with cath/p atch/ICE [02052 (CPT )] Start: 03-12-2024 Subsequent hospital visit by physician 03/12/2024 2:30 PM EDT Hospital Encounter [facility] Cath [address] [place] [address] Dante Degroot MD [address] [place] [address] PFO (patent foramen ovale) [facility] Comment on above: PFO (patent foramen ovale) Start: 03-08-2024 COVID-19 Vaccine ( season) COVID-19 Vaccine ( season) [facility] Start: 03-08-2024 COVID-19 Vaccine ( season) COVID-19 Vaccine ( season) [facility] Start: 03-08-2024 Influenza vaccination [facility] Start: 02-17-2024 End: 02-17-2024 Patient encounter procedure 02/17/2024 11:00 AM EDT Office Visit [facility] [address] [place] [address] Dante Degroot MD [address] [place], [place] [phone] [facility] Start: 01-29-2024 End: 01-29-2024 Telemedicine consultation with patient 01/29/2024 3:00 PM EDT Telemedicine [facility] [address] [place] [phone] Blane Healy MD [address] [facility], [address], [address] [place] [address] [facility] Start: 01-13-2024 End: 01-13-2024 Patient encounter procedure 01/13/2024 8:45 AM EDT Appointment [facility] - Cardiac Cath [address] [place] [phone] Raquel Nation MD [address] [place] [phone] [facility] - Cardiac Cath Start: 12-26-2023 End: 12-25-2024 Wireless Telemetry (In Office) Wireless Telemetry (In Office) Cardiac Services Routine PFO (patent foramen ovale) TIA (transient ischemic attack) Palpitations Expected: 12/26/2023, Expires: 12/25/2024 [facility] Work Phone: Comment on above: Expected: 12/26/2023, Expires: Start: 03-08-2023 COVID-19 Vaccine ( season) COVID-19 Vaccine () [facility] Start: 10-12-2022 Creatinine measurement Creatinine monitoring [facility] Start: 10-12-2022 Potassium monitoring Potassium monitoring [facility] Start: 09-28-2022 Adult BMI Screening Adult BMI Screening [facility] Start: 03-08-2022 Influenza vaccination Flu vaccine (Season Ended) [facility] Start: 01-11-2022 Hemoglobin A1c measurement A1C test (Diabetic or Prediabetic) [facility] Start: 10-21-2021 End: 10-21-2021 Patient encounter procedure 10/21/2021 Appointment IP Unit [facility] Start: 10-18-2021 Subsequent hospital visit by physician 10/18/2021 Hospital Encounter Obstetrics and Gynecology Dianne Dang, ESTHER - ALFREDO [address] [place] [address] [facility] Start: 10-17-2021 End: 10-17-2021 [...] LD Start: 2021 Diabetes screen Diabetes screen [facility] Start: 03-08-2021 Influenza vaccination Flu vaccine (#1) [facility] Start: 03-13-2020 Screening for malignant neoplasm of cervix Pap Smear [facility] [employer] [facility] Start: 2016 Screening for malignant neoplasm of cervix [facility] [employer] Start: 2007 Screening for malignant neoplasm of cervix Pap smear [facility] Start: 2004 Adult BMI Follow Up Plan Adult BMI Follow Up Plan [facility] Start: 2001 HIV screening HIV screen [facility] Start: 1998 Depression Screen Depression Screen [facility] Start: 1998 Depression Screening Depression Screening [facility] Start: 1998 Tobacco Screening Tobacco Screening [employer] Start: 1991 COVID-19 Vaccine (1) COVID-19 Vaccine (1) [facility] Start: 1987 Varicella vaccine (1 of 2 - 2-dose childhood series) Varicella vaccine (1 of 2 - 2-dose childhood series) [facility] Start: 1986 Hepatitis C screening Hepatitis C screen [facility] [employer] Start: 1986 Tobacco [facility]ing [facility] CBC W Auto Differential panel - Blood CBC and differential Lab Routine Irregular menstrual cycle Menorrhagia with irregular cycle Ordered: 08/24/2024 [employer] Comment on above: Ordered: 08/24/2024 DHEA-sulfate DHEA-sulfate Lab Routine Irregular menstrual cycle Menorrhagia with irregular cycle Ordered: 08/24/2024 [employer] Comment on above: Ordered: 08/24/2024 End: 08-27-2025 EEG EEG Neurology Routine LOC (loss of consciousness) ([facility] 1 Occurrences starting 08/27/2024 until 08/27/2025 [employer] Phone: Comment on above: 1 Occurrences starting 08/27/2024 until 08/27/2025 End: 09-09-2021 nonstress test [employer] Phone: Comment on above: 1 Occurrences starting 09/09/2021 until 09/09/2021 As Needed for 8 Occu rrences starting 09/09/2021 End: 09-23-2021 nonstress test nonstress test OB Routine Diet controlled gestational diabetes mellitus (GDM) in third trimester 1 Occurrences starting 09/23/2021 until 09/23/2021 [employer] Phone: Comment on above: 1 Occurrences starting 09/23/2021 until 09/23/2021 Follicle stimulating hormone Follicle stimulating hormone Lab Routine Irregular menstrual cycle Menorrhagia with irregular cycle Ordered: 08/24/2024 [employer] Comment on above: Ordered: 08/24/2024 End: 10-13-2021 Glucose [Mass/volume] in Serum or Plasma Glucose, Random Lab Timed Tomorrow AM for 1 Occurrences starting 10/13/2021 until 10/13/2021 [employer] Phone: Comment on above: Tomorrow AM for 1 Occurrences starting 0 10/13/2021 until 10/13/2021 Glucose [Mass/volume ] in Serum or Plasma [employer] Phone: Comment on above: 4X Daily (AC & HS) until discontinued st arting 10/12/2021 As Needed until disc ontinued starting 10/12/2021 hCG, quantitative, hCG, quantitative, Lab Routine Irregular menstrual cycle Menorrhagia with irregular cycle Ordered: 08/24/2024 [employer] Work Phone: Comment on above: Ordered: 08/24/2024 Hemoglobin A1c/Hemoglobin.total in Blood Hemoglobin A1c Lab Routine Irregular menstrual cycle Menorrhagia with irregular cycle Ordered: 08/24/2024 [employer] Comment on above: Ordered: 08/24/[address] [facility] Luteinizing hormone Luteinizing hormone Lab Routine Irregular menstrual cycle Menorrhagia with irregular cycle Ordered: 08/24/2024 [employer] Comment on above: Ordered: 08/24/2024 End: 10-19-2021 Magnesium [Mass/volume] in Serum or Plasma Magnesium Lab Routine Every 6 Hours (Lab) for 7 Days starting 10/12/2021 until 10/19/2021, 3 completed [employer] Phone: Comment on above: Every 6 Hours (Lab) for 7 Days starting 10/12/2021 until 10/19/2021, 3 completed Nonrebreather mask oxygen Nonrebreather mask oxygen Respiratory Care Routine As directed - RT (PRN) until discontinued starting 10/12/2021 [employer] Phone: Comment on above: As directed - RT (PRN) until discontinue d starting 10/12/2021 Oxygen therapy [Minimum Data Set] Initiate Oxygen Therapy Protocol Respiratory Care Routine As Needed until discontinued starting 10/12/2021 [employer] Phone: Comment on above: As Needed until discontinued starting Spirometry panel Incentive itz metry Respiratory Care Routine Every 2hr while awake until discontinued starting 10/12/2021 [employer] Phone: Comment on above: Every 2hr while awake until discontinued starting 10/12/2021 End: 10-12-2021 Surgical Pathology Surgical Pathology Lab Routine One Time for 1 Occurrences starting 10/12/2021 until 10/12/2021 [employer] Phone: Comment on above: One Time for 1 Occurrences starting 01/2022 until 10/12/2021 End: 10-12-2021 SURGICAL PATHOLOGY REPORT SURGICAL PATHOLOGY REPORT Lab Routine Once for 1 Occurrences starting 10/12/2021 until 10/12/2021 [employer] Phone: Comment on above: Once for 1 Occurrences starting 10/13/19 until 10/12/2021 End: 10-13-2021 SURGICAL PATHOLOGY REPORT SURGICAL PATHOLOGY REPORT Lab Routine Once for 1 Occurrences starting 10/13/2021 until 10/13/2021 [employer] Phone: Comment on above: Once for 1 Occurrences starting 10/14/19 until 10/13/2021 Thyrotropin [Units/volume] in Serum or Plasma TSH Lab Routine Irregular menstrual cycle Menorrhagia with irregular cycle Ordered: 08/24/2024 [facility] Comment on above: Ordered: 08/24/2024 Thyroxine (T4) free [Mass/volume] in Serum or Plasma T4, free Lab Routine Irregular menstrual cycle Menorrhagia with irregular cycle Ordered: 08/24/2024 [facility] Comment on above: Ordered: 08/24/2024 [facility] Immunizations Immunization Date Immunization Notes Care Provider Campos beasley 10-12-2021 diphtheria, tetanus toxoids and acellular pertussis vaccine, unspecified formulation Bryanna Barth [facility] Work Phone: [employer] Phone: 10-12-2021 measles, mumps and rubella virus vaccine [facility]anna [facility] Work Phone: [employer] Phone: 07-30-2018 tetanus toxoid, redu sana diphtheria toxoid, and acellular pertussis vaccine, adsorbed Nohemy Kingsley RN [facility] 03-26-2013 influenza virus vaccine, unspecified formulation Nohemy Kingsley RN [facility] Payers Date Payer Category Payer Blue [facility] BCBS [id number] 2023 [facility] ld Managed Care - Other ANTHEM [id number] 2023 Unknown [id number]. 1.13.424. 2.7.3.821912.315 2023 Unknown [id number] 2020 Private Health Insurance [facility] [id number] 2020-Present [phone] [facility] [address] [place] [address] [id number]. 2.7.3.985740.315 2014 Unknown [id number] 1986 Unknown [id number] 2.16.840.1.164223.3.579. 2.173 1986 Unknown [id number] 2.16.840.1.116962.3.579. 2.173 1986 Unknown [id number] 2.16.840.1.095684.3.579. 2.173 1986 Unknown [id number] 2.16.840.1.996458.3.579. 2.173 1986 Unknown [id number] 2.16.840.1.185856.3.579. 2.173 1986 Unknown [id number] 2.16.840.1.499854.3.579. 2.173 1986 Unknown [id number] 2.16.840.1.413973.3.579. 2.173 1986 Unknown [id number] 2.16.840.1.408290.3.579. 2.593 1986 Unknown [id number] 2.16.840.1.504094.3.579. 2.593 1986 Unknown [id number] 2.16.840.1.379900.3.579. 2.1286 1986 Unknown [id number] 2.16.840.1.381382.3.579. 2.1286 1986 Unknown [id number] 2.16.840.1.919485.3.579. 2.1286 1986 Unknown [id number] 2.16.840.1.606119.3.579. 2.1286 1986 Unknown [id number] 2.16.840.1.390036.3.579. 2.1286 1986 Unknown [id number] 2.16.840.1.667249.3.579. 2.1286 1986 Unknown [id number] 2.16.840.1.831027.3.579. 2.1285 1986 Unknown [id number] 2.16.840.1.395109.3.579. 2.9 1986 Unknown [id number] 2.16.840.1.079233.3.579. 2.9 1986 Unknown [id number] 2.16.840.1.663653.3.579. 2.9 1986 Unknown [id number] 2.16.840.1.088369.3.579. 2.9 1986 Unknown [id number] 2.16.840.1.078007.3.579. 2.1285 1986 Unknown [id number] 2.16.840.1.081224.3.579. 2.1285 1986 Unknown [id number] 2.16.840.1.593927.3.579. 2.1285 1986 Unknown [id number] 2.16.840.1.636341.3.579. 2.1285 1986 Unknown [id number] 2.16.840.1.590255.3.579. 2.1285 1986 Unknown [id number] 2.16.840.1.715241.3.579. 2.1285 1986 Unknown [id number] 2.16.840.1.723329.3.579. 2.1285 1986 Unknown [id number] 2.16.840.1.372540.3.579. 2.1285 1986 Unknown [id number] 2.16.840.1.530998.3.579. 2.1286 1959 Private Health Insurance [id number] [id number]. 2.7.3.422977.315 Self-pay Self Pay [id number] Social History Date Type Detail Facility Start: 04-19-2021 End: 03-23-2024 Tobacco smoking status NHIS Never smoked tobacco [facility] Other Start: 04-19-2021 End: 12-16-2023 Tobacco use and exposure Smokeless tobacco non-user [employer] Phone: Start: 09-09-2021 End: 07-31-2024 Alcohol intake Ex-drinker (finding) [employer] Phone: Start: 01-31-2021 [employer] Phone: Start: 1985 Sex Assigned At Not on file [employer] Phone: Start: 09-13-2021 End: 10-12-2021 Exposure to SARS-CoV-2 (event) Not sure [employer] Start: 08-18-2020 End: 01-27-2024 Sex Assigned At [facility] Sequence Other Start: 1985 Sex Assigned At Female F [facility] Start: 01-27-2024 End: 08-24-2024 Alcoholic beverage intake Current drinker of alcohol (finding) [facility] Start: 08-18-2020 End: 01-27-2024 History of Social function [facility] Start: 07-29-2018 End: 03-23-2024 Tobacco use and exposure User of smokeless tobacco [facility] Childcare Unknown [facility] Start: 03-23-2024 Tobacco Comment Nicotine pouch , occasionally. [facility] Start: 02-10-2015 End: 11-16-2024 Sex Female (finding) [facility] History of tobacco use Chews Tobacco [facility] Start: 01-17-2022 End: 03-11-2024 Alcoholic beverage intake Current non-drinker of alcohol (finding) [facility] Start: 07-22-2018 End: 02-04-2024 Tobacco Comment Once a week [employer] [facility] Medical Equipment Procedure Code Equipment Code Equipment Origin al Text Equipment Identifier Dates Occluder Cv Rt A tr Disc 25mm Lt Atr Disc 18mm Rcmd Shth 8f [facility] [id number] - [id number] Start: 03-13-2024 Use pen needles to give insulin. [id number] Start: 09-28-2021 Clinical Notes 06-14-2021 to 01-13-2025 Telephone Encounter - Emilie Almazan CMA - 01/13/2025 8:11 AM EDTTelephone Encounter - Emilie Almazan CMA - 01/13/2025 8:11 AM EDTTelephone Encounter - Flor Barr RN - 01/11/2025 11:17 AM EDT Note Date & Type Note Facility 01-13-2025 Miscellaneous Notes Pt called to cancel appt scheduled on 01/13/2025 with VG. Per pt is currently following with [facility] Cardiology. documented in this encounter [facility] 01-13-2025 Telephone encounter Note Pt called to cancel appt scheduled on 01/13/2025 with VG. Per pt is currently following with [facility] Cardiology. [facility] 01-12-2025 Miscellaneous Notes Phoned pt to remind of appointment scheduled for 01/13/2025 , message left on vm for pt to bring current list of medications, photo ID, insurance card or cards, and any copays that will be due at that time, and to arrive 15 minutes early to check in. documented in this encounter [facility] 01-12-2025 Telephone encounter Note Phoned pt to remind of appointment scheduled for 01/13/2025 , message left on vm for pt to bring current list of medications, photo ID, insurance card or cards, and any copays that will be due at that time, and to arrive 15 minutes early to check in. [facility] 01-11-2025 Miscellaneous Notes Per recall of Dr. Healy, please call patient and see how they are doing. If no concerns, patient may follow up as needed. If apt needed now, okay to schedule with BENI or Dr. Healy. Patient stated she is doing well at the moment. Pt to call if she needs appt. documented in this encounter [facility] 01-11-2025 Telephone encounter Note Per recall of Dr. Healy, please call patient and see how they are doing. If no concerns, patient may follow up as needed. If apt needed now, okay to schedule with BENI or Dr. Healy. [facility] 01-11-2025 Telephone encounter Note Patient stated she is doing well at the moment. Pt to call if she needs appt. [facility] 01-01-2025 Note Patient is here toda y for s/p ablation for A-Fib. Patient states she is feeling good, no complaints. Review of Systems Constitutional: Negative. [facility] 01-01-2025 Note SUBJECTIVE Reason for Visit: Solange Lucas is a 39 y.o. year old female patient being seen for follow-up ablation. HPI: Solange Lucas is a 39 y.o. year old female with significant medical history of CVA and PFO s/p closure at [facility] (Dr. Kanu Degroot) who has been followed up by the primary care team and where she was evaluated for event of palpitations. The third event monitor that was 1 did not reveal any A-fib. She certainly experienced syncope and had a 14-day Holter monitor that was ordered by Dr. Mcqueen. The episode occurred while she was at a concert. She was subsequently seen by Dr. BURCIAGA and an event monitor is being worn at that time. This revealed the presence of atrial fibrillation with fast ventricular rate as noted on 09/02/2024. There are episodes of atrial flutter also seen. On 11/19/2024 the patient underwent a successful PVI using pulsed field ablation PFA for paroxysmal atrial fibrillation, guided by 3D mapping and intracardiac echocardiography. All four pulmonary veins were electrically isolated without complications, and no arrhythmias or accessory pathways were inducible on post-ablation testing. 01/01/2025 office visit: Patient seen evaluated in the office today status post A-fib ablation with Dr. Motley. She reports doing very well overall. She denies potation's, chest pain, shortness of breath, lightheadedness dizziness, or lower extremity edema. She reports doing very well overall. She has no complaints or concerns for the visit. Bilateral groin sites intact, denies pain or tenderness, bruising. 09/02/2024 office visit (Dr. Palomino): Medical History[1] Surgical History[2] Problem List[3] family history includes Atrial fibrillation in her brother; Diabetes in her mother; Hypertension in her father; Lung cancer in her paternal grandfather. Social History[4] OBJECTIVE Visit Vitals OB Status Having periods Smoking Status Never Physical Exam Constitutional: General Appearance: well-developed, appears stated age. Level of Distress: no acute distress. Neck: Jugular Veins: normal jugular venous pressure. Lungs: Auscultation: no rales or rhonchi and normal breath sounds. Cardiovascular: Rate And Rhythm: regular Heart Sounds: normal S1 and s2; Systolic Murmur: not heard. Diastolic Murmur: not heard. Extremities: no edema Peripheral Pulses: Pulses: full and equal in all extremities except if noted. Abdomen: Inspection and Palpation: non distended or tender and soft. Musculoskeletal: Inspection: no joint tenderness or swelling. Neurologic: Gait: normal gait. Psychiatric: Mental Status: alert and normal affect. Skin: Inspection and Palpation: warm and dry. Allergies: Allergies[5] Outpatient Medications: Current Outpatient Medications Medication Instructions apixaban (ELIQUIS) 5 mg, oral, 2 times daily, STOP ASPIRIN aspirin 81 mg, oral, Daily RT atorvastatin (LIPITOR) 20 mg, oral, Daily buPROPion (WELLBUTRIN) 50 mg, oral, 2 times daily escitalopram (Lexapro) 10 mg tablet 1 tablet, oral, Daily famotidine (PEPCID) 20 mg, oral, 2 times daily ferrous sulfate 65 mg, oral, Daily with breakfast flecainide (TAMBOCOR) 100 mg, oral, 2 times daily metoprolol succinate XL (TOPROL-XL) 25 mg, oral, Daily RT Recent Labs: Admission on 11/19/2024, Discharged on 11/19/2024 Component Date Value Ventricular Rate 11/19/2024 45 Atrial Rate 11/19/2024 45 PA Interval 11/19/2024 168 QRS DURATION 11/19/2024 80 QT Interval 11/19/2024 450 QTC CALCULATION(BAZETT) 11/19/2024 389 P Silver Star 11/19/2024 14 R-Silver Star 11/19/2024 11 T Wave Silver Star 11/19/2024 21 Protime 11/19/2024 14.7 INR 11/19/2024 1.15 (H) Glucose POC 11/19/2024 83 Haptoglobin 11/19/2024 80.0 Hemoglobin 11/19/2024 7.7 (L) LD 11/19/2024 162 Total Bilirubin 11/19/2024 0.7 Bilirubin, Direct 11/19/2024 0.1 Ventricular Rate 11/19/2024 70 Atrial Rate 11/19/2024 70 PA Interval 11/19/2024 158 QRS DURATION 11/19/2024 82 QT Interval 11/19/2024 422 QTC CALCULATION(BAZETT) 11/19/2024 455 P Silver Star 11/19/2024 48 R-Silver Star 11/19/2024 41 T Wave Silver Star 11/19/2024 37 POCT ACT 11/19/2024 262 (A) QC Pass/Fail 11/19/2024 Passed QC LOT # 11/19/2024 8 QC Expiration Date 11/19/2024 73,125 POCT ACT 11/19/2024 323 (A) QC Pass/Fail 11/19/2024 Passed QC LOT # 11/19/2024 8 QC Expiration Date 11/19/2024 73,125 POCT ACT 11/19/2024 371 (A) QC Pass/Fail 11/19/2024 Passed QC LOT # 11/19/2024 8 QC Expiration Date 11/19/2024 73,125 POCT ACT 11/19/2024 229 (A) QC Pass/Fail 11/19/2024 Passed QC LOT # 11/19/2024 8 QC Expiration Date 11/19/2024 73,125 I have personally reviewed and anaylzed the following laboratory results above. These findings have been analyzed in the context of the patient's clinical presentation. Cardiovascular Diagnostic Studies: ATRIAL FIBRILLATION ABLATION PROCEDURE NOTE 11/19/2024 DATE OF PROCEDURE: 11/19/2024 PERFORMING PHYSICIAN: Dr. Dennis Motley (more content not included)... [facility] 11-19-2024 Note ATRIAL FIBRILLATION ABLATION PROCEDURE NOTE DATE OF PROCEDURE: 11/19/2024 PERFORMING PHYSICIAN: Dr. Dennis Motley TAX ACCOUNTING ASSISTANT: SULEMAN CONSENT: Patient NAME OF THE PROCEDURE: Pulmonary Vein Isolation and Comprehensive EP study. INDICATIONS FOR PROCEDURE: 1. Paroxysmal atrial fibrillation. PROCEDURES PERFORMED: 1. Sonosite guided venous access as noted below and images stored. 2. Comprehensive EP study and catheter ablation for persistent atrial fibrillation through the pulmonary vein isolation technique. This includes right atrial recording and pacing, His bundle recording and right ventricular recording and pacing. 3. Intracardiac EP 3D mapping. 4. Intracardiac echocardiogram 5. Left atrial and coronary sinus recording and pacing to assess ablation results. 6. Left heart pressure measurements and LV pacing and recording. 7. Induction of arrhythmia and testing of ablation results using intravenous adenosine infusion. 8. Fluroscopy. FLUROSCOPY: 14.1min/ 52mGray EBL: 25cc PROCEDURE NOTE: Pt was brought to EP lab and she was in sinus rhythm, so EMMA was deferred. Thereafter, we proceeded to do atrial fibrillation ablation. Both the groins were then prepared and draped. Ultrasound was used to determine the course and patency of the femoral veins on both sides and they were noted to be patent and the image stored in PACS. After infiltration with 1% lidocaine, 4 venous sheaths were placed in the right as noted below. RFV: 8Fx1 CS Catheter (EZ Steer) 9Fx1: ICE catheter. 8F -->17F: Faradrive sheath for PFA catheter Heparin bolus was given followed by additional bolus and continuous intravenous drip to target ACT around 350. An intracardiac ultrasound catheter was inserted into the right atrium to examine the right atrial anatomy, atrial septum, pulmonary vein anatomy and to monitor for pericardial effusion and guide transseptal access. ICE revealed that the patient had a mildy dilated right atrium and left atrium and no pericardial effusion and a well placed PFO closure device. At this point I decided to proceed with the transseptal puncture to perform A. fib ablation where there was a small area of interatrial septum not covered by the device which was quite posterior. Single transseptal access technique was used to cross to the left side. Following the first transeptal access, which was achieved via puncture of the thinner aspect of the septum using Ashley needle, Octoray catheter was placed in the left atrium. Pulmonary vein and left atrial anatomic mapping were performed using a 3-D [employer]ART[employer] computer-based mapping system. Identification of the pulmonary vein ostia was assisted by the left atrial signals on the ablation catheter, the ICE catheter and the Octoray catheter placed in the individual pulmonary veins. I then proceeded to exchange the SL1 for 17F Faradrive sheath. Farawave multipolar catheter was advanced over a wire with negative aspiration in periodic fashion to avoid any air bubbles. Thereafter the catheter was advanced to each of the veins over the wire to maintain coaxial placement of catheter. 2 PFA energy pulses were given in each position and then position rotated to 36degrees to get new location and repeat PFA energy were provided especially given a right middle vein. Then this process was repeated in the flower configuration in each veins. This led to complete isolation of each vein. Repeat mapping with Octoray catheter revealed isolation of all 4 veins. LV pacing revealed no left sided retrograde accessory pathway. Adenosine did not reveal any reconnection. Burst pacing did not induce any arhrythmia. The ICE catheter was used to reexamine the intracardiac anatomy and this showed no pericardial effusion. Since no flutter could be induced, I did not proceed with flutter ablation. ICE catheter and all catheters were removed. Venous sheaths were pulled, and hemostasis achieved with Perclose sutures. She was transferred to observation bay and then to hospital room for observation. LA baseline (mmHg) 1st and 2nd 17/11 HR 59bpm, 17/12 HR 68 LA 600ms pacing (mmHg) 16/12 LA 400ms pacing (mmHg) 21/12 AHms 39 HVms 37 VERPms 600/280, VA condunction+ AV Wenkebach ms 330ms AH jump ms NA AVNERP ms Straight to AERP AERP ms 600/300 PFA lesions 45 POST PROCEDURE DIAGNOSIS 1. Paroxysmal atrial fibrillation s/p PVI (WACA) with PFA. 2. EP study revealing no retrograde accessory pathway. 3. Normal LA voltage 4. Normal LA pressures. SPECIMEN REMOVED: None PLAN: 1. Anticoagulation after 2 hrs of sheath removal. 2. Protonix 40mg bid x 1 month. 3. Groin precautions. Dennis Motley MD Cardiac Electrophysiology [facility] 11-19-2024 Note Patient: Solange schwartz Procedure Summary Date: 11/19/24 Room / Location: [facility] SCREEN TACKER 1 EP / [facility] (Cath) Anesthesia Start: 1212 Anesthesia Stop: 1508 Procedure: Ablation a-fib paroxysmal Diagnosis: Paroxysmal atrial fibrillation (CMS/HCC) (Paroxysmal atrial fibrillation (CMS/HCC) [I48.0]) Providers: Dennis Motley MD Responsible Provider: Prince Bangura MD Anesthesia Type: general ASA Status: 2 Anesthesia Type: general Vitals Value Taken Time BP 100/56 11/19/24 1551 Temp 37 ???C (98.6 ???F) 11/19/24 1505 Pulse 68 11/19/24 1605 Resp 14 11/19/24 1605 SpO2 98 % 11/19/24 1605 Vitals shown include unfiled device data. Anesthesia Post Evaluation Patient location during evaluation: PACU Patient participation: complete - patient participated Level of consciousness: awake Pain management: adequate Airway patency: patent Cardiovascular status: acceptable Respiratory status: acceptable Hydration status: acceptable Patient is hemodynamically stable and is able to be discharged from PACU per anesthesia protocol. No notable events documented. [facility] 11-19-2024 Note Airway Date/Time: 11/19/2024 12:37 PM Urgency: elective Airway not difficult General Information and Staff Patient location during procedure: OR Anesthesiologist: Prince Bangura MD Performed: anesthesiologist Learner assisted: Shahnaz Rodriguez MS3 Indications and Patient Condition Indications for airway management: anesthesia Spontaneous Ventilation: absent Sedation level: deep Preoxygenated: yes Patient position: sniffing Mask difficulty assessment: 1 - vent by mask Planned trial extubation Final Airway Details Final airway type: endotracheal airway Successful airway: ETT Cuffed: yes Successful intubation technique: video laryngoscopy Facilitating devices/methods: intubating stylet Endotracheal tube insertion site: oral Blade: Rosario Blade size: #3 ETT size (mm): 7.0 Cormack-Lehane Classification: grade I - full view of glottis Placement verified by: chest auscultation and capnometry Measured from: lips ETT to lips (cm): 23 Number of attempts at approach: 1 Number of other approaches attempted: 0 [facility] 11-19-2024 Note Patient: Solange schwartz Procedure Information Date/Time: 11/19/24 1200 Procedure: Ablation a-fib paroxysmal - PC APPROVED 10/28-12/26 Location: [facility] SCREEN TACKER 1 / [facility] (Cath) Providers: Dennis Motley MD Relevant Problems Anesthesia (within normal limits) Cardio (+) Paroxysmal atrial fibrillation (CMS/HCC) Neuro/Psych (+) TIA (transient ischemic attack) (11 months ago) Circulatory (+) PFO (patent foramen ovale) PT 14.7 INR 1.15 Encounter Date: 11/19/24 Electrocardiogram, 12-lead Result Value Ventricular Rate 45 Atrial Rate 45 PA Interval 168 QRS DURATION 80 QT Interval 450 QTC CALCULATION(BAZETT) 389 P Silver Star 14 R-Silver Star 11 T Wave Silver Star 21 Impression Sinus bradycardia with marked sinus arrythmia Low voltage QRS Borderline ECG No previous ECGs available Echo 04/2024: Left Ventricle: Left ventricle appears normal in size. Systolic function is normal with an ejection fraction of 55-60%. Right Ventricle: Right ventricular size appears normal. Systolic function is normal. Tricuspid Valve: There is trace to mild regurgitation. There is no evidence of tricuspid valve stenosis. There is an Amplatzer closure device which completely occludes the IAS. Agitated saline bubble study revealed no evidence of right to left interatrial shunting . Clinical information reviewed: Tobacco Allergies Meds Med Hx Surg Hx OB Status Fam Hx Soc Hx Physical Exam Airway Mallampati: I TM distance: >3 FB Neck ROM: full Cardiovascular Rhythm: regular Rate: abnormal Dental - normal exam Pulmonary Breath sounds clear to auscultation Abdominal - normal exam Anesthesia Plan ASA 2 general The patient is not a current smoker. Patient was previously instructed to abstain from smoking on day of procedure. Patient did not smoke on day of procedure. Education provided regarding risk of obstructive sleep apnea. intravenous induction Postoperative administration of opioids is intended. Trial extubation is planned. Anesthetic plan and risks discussed with patient. Use of blood products discussed with patient who consented to blood products. Plan discussed with attending. Additional Equipment Requests [facility] 10-13-2024 Note TX Electrophysiology Consult Note [place] Cardiology [facility] Reason for visit: HPI: Solange Lucas is a 39 y.o. year old with past medical history of CVA and PFO s/p closure at [facility] (Dr. Kanu Degroot) who has been followed up by the primary care team and where she was evaluated for event of palpitations. The third event monitor that was 1 did not reveal any A-fib. She certainly experienced syncope and had a 14-day Holter monitor that was ordered by Dr. Mcqueen. The episode occurred while she was at a concert. She was subsequently seen by Dr. BURCIAGA and an event monitor is being worn at that time. This revealed the presence of atrial fibrillation with fast ventricular rate as noted on 09/02/2024. There are episodes of atrial flutter also seen PMH: Past Medical History: Diagnosis Date Anxiety Heart valve disease PCOS (polycystic ovarian syndrome) Stroke (CMS/HCC) PSH: Past Surgical History: Procedure Laterality Date BACK SURGERY SECTION, CLASSIC TONSILECTOMY, ADENOIDECTOMY, BILATERAL MYRINGOTOMY AND TUBES SH: Social Determinants of Health Tobacco Use: Low Risk (10/13/2024) Patient History Smoking Tobacco Use: Never Smokeless Tobacco Use: Never Passive Exposure: Not on file Recent Concern: Tobacco Use - High Risk (07/31/2024) Received from [employer] Patient History Smoking Tobacco Use: Never Smokeless Tobacco Use: Current Passive Exposure: Not on file Alcohol Use: Not on file Financial Resource Strain: Not on file Food Insecurity: No Food Insecurity (07/31/2024) Received from [employer] Hunger Screening Within the past 12 months we worried whether our food would run out before we got money to buy more.: Never True Within the past 12 months the food we bought just didn't last and we didn't have money to get more.: Never True Transportation Needs: Not on file Physical Activity: Not on file Stress: Not on file Social Connections: Not on file Intimate Partner Violence: Unknown (12/18/2023) [place] Safety & Environment Fear of Current or Ex-Partner: Not on file Emotionally Abused: Not on file Physically Abused: Not on file Sexually Abused: Not on file Physically or Sexually Abused: Not on file Depression: Not on file Housing Stability: Not on file Utilities: Not on file Health Literacy: Not on file Allergies: Allergies Allergen Reactions Penicillins Hives Weight: 73.9kg Visit Vitals BP 140/88 (BP Location: Left arm, Patient Position: Sitting) Pulse 74 Ht 1.575 m (5' 2 ) Wt 73.9 kg (163 lb) SpO2 98% BMI 29.81 kg/m??? Smoking Status Never BSA 1.8 m??? Meds: Current Outpatient Medications on File Prior to Visit Medication Sig Dispense Refill apixaban (Eliquis) 5 mg tablet Take 1 tablet (5 mg) by mouth two times daily. STOP ASPIRIN 180 tablet 3 escitalopram (Lexapro) 10 mg tablet Take 1 tablet by mouth in the morning. ferrous sulfate 325 (65 Fe) MG tablet Take 65 mg by mouth with breakfast. aspirin 81 mg EC tablet Take 81 mg by mouth in the morning. atorvastatin (Lipitor) 20 mg tablet Take 20 mg by mouth in the morning. buPROPion (Wellbutrin) 100 mg tablet Take 50 mg by mouth twice a day. metoprolol succinate XL (Toprol-XL) 25 mg 24 hr tablet Take 25 mg by mouth in the morning. No current facility-administered medications on file prior to visit. ROS: Review of Systems Cardiovascular: Positive for chest pain and irregular heartbeat. Respiratory: Positive for shortness of breath (when in A-Fib). Neurological: Positive for dizziness and light-headedness. Physical Exam: Constitutional General Appearance: well-nourished, well-developed, appears stated age Level of Distress: comfortable Eyes KENY Neck Neck: supple, trachea midline Carotid Arteries: bilateral normal upstroke, no bruits Jugular Veins: normal jugular venous pressure Thyroid: not enlarged Lungs Respiratory Effort: unlabored Chest Exam: normal curvature, no thoracic deformity Auscultation: clear, no wheezing, no rales, no rhonchi Cardiovascular Chest wall: Rate And Rhythm: regular Heart Sounds: normal S1, normal s2, no gallop Systolic Murmur: not heard Diastolic Murmur: not heard Extremities: no cyanosis, no edema, no peripheral signs of emboli Peripheral Pulses Radial Pulse: normal Abdomen Inspection and Palpation: soft, non distended, no bruit, non tender Neurologic Gait: normal gait Labs: @LABRESULTS@ No results found for: CHOLESTEROL TOTAL , HDL , LDL CALC , LDL DIRECT , TRIGLYCERIDES , TSH , T3 TOTAL , T4 TOTAL , THYROID PEROXIDASE AB , BNP EKG: No results found for this or any previous visit (from the past 4464 hour(s)). Echo: 12/18/23 Stress test: Coronary angiogram: @CATH@ Diagnostic Imaging: Echocardiogram 12/17/2023: CONCLUSION: 1. Normal ventricular size and systolic function. Estimated LVEF is 65%. 2. Normal diastolic functi (more content not included)... [facility] 09-30-2024 Miscellaneous Notes Pt S/P PFO closure 03/13/24. Pt was last seen by MMM on 07/31/24. She has a syncopal episode at a concert. PCP ordered at that showed her in A-fib for 8 hours. scanned under media. Dicussed with with VG he is having her D/C ASA,start eliquis 5 mg BID, and metoprolol 25 mg qd. KPR Does pt need to be on Plavix also? Will make appt with EP first available. Jodyx jareth After talking with pt she was told to stop the plavix this month. She will continue the ASA per VG unless you want her to D/C it? Appt made with EP 01/13/25.raymond templeton documented [facility] this encounter [facility] Telephone encounter Note Pt S/P PFO closure 03/13/24. Pt was last seen by MMM on 07/31/24. She has a syncopal episode at a concert. PCP ordered at that showed her in A-fib for 8 hours. scanned under media. Dicussed with with VG he is having her D/C ASA,start eliquis 5 mg BID, and metoprolol 25 mg qd. KPR Does pt need to be on Plavix also? Will make appt with EP first available. Thx slm [email or web address] 09-30-2024 Telephone encounter Note After talking with pt she was told to stop the plavix this month. She will continue the ASA per VG unless you want her to D/C it? Appt made with EP 01/13/25.thx slm [facility] 09-02-2024 Note [place] Cardiology - [facility] Subjective Solange Lucas is a 39 y.o. year old female patient being seen for follow up [facility] today for palpitations. She had 14 day Holter monitor placed yesterday. She says Dr. Mcqueen ordered this because she had syncopal episode a few weeks ago while at a concert. She had 1-2 drinks the entire day. Denies chest pain but felt very SOB today. Denies lightheadedness prior to syncopal episode. She had transferred to [facility] after seeing us in 2023. PFO closure was done in Mar 2024. Had echo in Apr 2024 and wore an event monitor in Jun 2024. She's been out of Plavix for 2 days now, but was told she could stop it in September 2024. Currently not on a statin. Patient Active Problem List Diagnosis Abdominal pain Abnormal facial hair Acne Antepartum hypertension BMI 50.0-59.9, adult ([facility]) Encounter for sterilization Gestational hypertension, third trimester History of delivery Gestational diabetes mellitus Intrauterine Irregular menstrual cycle Menorrhagia with irregular cycle PFO (patent foramen ovale) TIA (transient ischemic attack) Family History Problem Relation Name Age of Onset Diabetes Mother Hypertension Father Atrial fibrillation Brother Lung cancer Paternal Grandfather Social History Tobacco Use Smoking status: Never Smokeless tobacco: Never Substance Use Topics Alcohol use: Not Currently Drug use: Never HPI Visit of 12/20/2023: Solange is seen as a new patient via TeleMed. She is a 38-year-old woman with no prior significant medical history. On 12/17/2023 she was admitted to the [facility] after sustaining right arm weakness, difficulty speaking and facial droop. The symptoms resolved within 10 to 15 minutes of onset. During the symptoms, she FaceTime her mother who is a nurse and explained to her what was happening and she was taken to the emergency room at the [facility] where she was admitted and investigation [...] atrial fibrillation and is on anticoagulation therapy. Visit of 09/02/2024: She is seen in follow-up. After last visit I had checked a hypercoagulability profile and she was going to wear an event monitor to rule out any arrhythmias, in preparation for potential PFO closure. Today she is seen in follow-up. She reports that since last visit she had transferred her care to [facility] cardiology since one of her friends works there and underwent PFO closure there. This was performed on 03/13/2024 using a 25 mm Amplatzer PFO occluder. today she reports that she was not happy with their care as she developed episodes of palpitations after the procedure and those were not well attended to by the providers. She wants to move her care back to us. She currently is wearing a 14-day event monitor to investigate the palpitations. She says that her watch told her that she went into atrial fibrillation last night and this lasted several hours. She felt the palpitations. She reports that she has on and off palpitations as well as shortness of breath on exertion. No leg edema and no chest pain. Review of Systems Constitutional: Positive for malaise/fatigue. Cardiovascular: Positive for dyspnea on exertion, palpitations and syncope. All other systems reviewed and are negative. Objective Visit Vitals BP 94/64 (BP Location: Left arm, Patient Position: Sitting) Pulse 74 Ht 1.575 m (5' 2 ) Wt 70.3 kg (155 lb) SpO2 99% BMI 28.35 kg/m??? Smoking Status Never BSA 1.75 m??? Physical Exam Constitutional: Appearance: She is well-developed. She is not ill-appearing. HENT: Head: Normocephalic and atraumatic. Nose: Nose normal. Eyes: General: No scleral icterus. Pupils: Pupils are equal, round, and reactive to light. Neck: Thyroid: No thyromegaly. Vascular: No JVD. Cardiovascular: Rate and Rhythm: Normal rate and regular rhythm. Pulses: Radial pulses are 2+ on the right side and 2+ on the left side. Heart sounds: Normal heart sounds. No murmur heard. No friction rub. No gallop. Pulmonary: Ef (more content not included)... [facility] 08-27-2024 History of Present illness Narrative Images from the original note were not included. [facility] Telestroke Clinic Visit [address] [id number] Patient: Solange Lucas Date of : 1985 Encounter Date: 08/27/2024 Patient Care Team: Edward Mcqueen DO as PCP - General (Internal Medicine) ADELA Alejandre as Phlebotomy Instructor (Nurse Phlebotomy Instructor) Patient Location: home Patient Consent obtained: yes, Verbal Prior to beginning this clinical portion of this visit, the patient/family has consented to the use of this telemedicine E-visit and initiated the contact. They have also consented to using [employer] as a communications platform, understanding the privacy limitations, and telehealth and HIPAA waivers as established in the [facility] expansion of telehealth benefits under the 1135 waiver authority and the Coronavirus Preparedness and Response Supplemental Appropriations Act Dated September and as summarized in September 22, 2019 [facility] FAQ on the Coronavirus (COVID-19) public health emergency. The patient has an established relationship with dc and was last seen in January 2024. [...] Gestational diabetes mellitus Hypertension Migraines Morbid obesity ([facility]) Panic attacks PFO (patent foramen ovale) Sprain of ankle, right TIA (transient ischemic attack) Tobacco abuse Family History Problem Relation Age of Onset Diabetes Mother Diabetes Father Depression Father Hypertension Father Asthma Sister Atrial fibrillation Brother Diabetes Maternal Grandmother Heart disease Maternal Grandfather Heart disease Paternal Grandmother Past Surgical History: Procedure Laterality Date BACK SURGERY 2009 disc shaved (bulging) and fused 2 of them together Was in college REPEAT WITH IUD INSERTION N/A 07/29/2018 Performed by Benita Sarabia MD at [facility] OR SECTION W/ TUBAL LIGATION 10/12/2021 COLPOSCOPY Intracardiac echocardiogram N/A 03/13/2024 Performed by Dante Degroot MD at [facility] CARDIAC CATH LABS PATENT FORAMEN OVALE CLOSURE 03/13/2024 Patent foramen ovale closure with cath/patch/ICE N/A 03/13/2024 Performed by Dante Degroot MD at [facility] CARDIAC CATH LABS TONSILLECTOMY Current Outpatient [...] Inattention: 0=No abnormality Total: 0 NIHSS0 Modified [place] Score: 0 Risk Factor Management: PFO s/p closure 03/2024 Assessment/Plan: Patient Active Problem List Diagnosis Acne Abnormal facial hair Gestational diabetes mellitus History of delivery Encounter for sterilization BMI 50.0-59.9, adult ([facility]) Gestational hypertension, third trimester Intrauterine PFO [...] This note was completed using a voice special education associate system. Every effort was made to ensure accuracy; however, inadvertent computerized special education associate errors may be present Please note case was done in collaboration with: patient I have spent 25 minutes personally reviewing previous history, imaging, and performing a face to face real time video health assessment on this patient via camera. If you have any further questions please feel free to contact our office at [facility]. This is a telemedicine visit. Verbal [...] patient needs it documented in this encounter [facility] 08-24-2024 History of Present illness Narrative Reason [...] nursing note reviewed. Exam conducted with a flute polisher present. Vitals: Estimated body mass index is 29.29 kg/m as calculated from the following: Height as of this encounter: 5' 2 . Weight as of this encounter: 160 lb 1.9 oz. BP: 110/70 No LMP recorded (within weeks). ASSESSMENT & PLAN ICD-10-CM 1. Irregular menstrual cycle N92.6 2. Menorrhagia with irregular cycle N92.1 Patient was referred from [facility] for surgical management of irregular/heavy cycles. [...] Betito Srivastava DO documented in this encounter [facility] 07-31-2024 History of Present illness Narrative Solange Cheryl Lucas Date of visit: 07/31/2024 Date of : 1985 Age: 39 y.o. Patient Active Problem List Diagnosis Acne Abnormal facial hair Gestational diabetes mellitus History of delivery Encounter for sterilization BMI 50.0-59.9, adult ([facility]) Gestational hypertension, third trimester Intrauterine PFO (patent [...] Gestational diabetes mellitus Hypertension Migraines Morbid obesity ([facility]) Panic attacks PFO (patent foramen ovale) Sprain of ankle, right TIA (transient ischemic attack) Tobacco abuse No data recorded No data recorded No data recorded Past Surgical History: Procedure Laterality Date BACK SURGERY 2008 disc shaved (bulging) and fused 2 of them together Was in college REPEAT WITH IUD INSERTION N/A 07/29/2018 Performed by Benita Sarabia MD at [facility] OR SECTION W/ TUBAL LIGATION 10/12/2021 COLPOSCOPY Intracardiac echocardiogram N/A 03/13/2024 Performed by Dante Degroot MD at [facility] CARDIAC CATH LABS PATENT FORAMEN OVALE CLOSURE 03/13/2024 Patent foramen ovale closure with cath/patch/ICE N/A 03/13/2024 Performed by Dante Degroot MD at [facility] CARDIAC CATH LABS TONSILLECTOMY Family History [...] Interpersonal Safety: Unknown (12/18/2023) Received from [facility] Safety & Environment Fear of Current [...] MCQUEEN DO Referring Physician: Edward Mcqueen DO [address] [place] [id number] documented in this encounter [facility] 07-30-2024 Miscellaneous Notes Called patient to remind them to bring their most current copy of their medication list with them to their appt. Patient verbalizes understanding. documented in this encounter [facility] 07-30-2024 Telephone encounter Note Called patient to remind them to bring their most current copy of their medication list with them to their appt. Patient verbalizes understanding. [facility] 07-27-2024 Miscellaneous Notes Called patient to offer earlier availability on 08/04. Pt was not available; LVM to call back. Appointment no longer available. documented in this encounter [facility] 07-27-2024 Telephone encounter Note Called patient to offer earlier availability on 08/04. Pt was not available; LVM to call back. [facility] 07-27-2024 Telephone encounter Note Appointment no longer available. [facility] 07-16-2024 History of Present illness Narrative Images from the original note were not included. PROBLEM VISIT Solange Lucas is 39 y.o. a patient of [facility] for growth by her rectum Last [...] MA,07/16/2024 2:41 PM documented in this encounter [facility] 06-17-2024 Miscellaneous Notes Pt called in to [facility] stating last night around 9:30pm she could feel her heart racing and she did not feel right. She didn't think too much off it and went to bed. She said her fit bit stated signs of AFIB were detected and hear heart rate ranged from 44-180. Today she feels okay just tired. Sending message to [facility] for recommendations. Let's get mcot 2 weeks Have her seen in [facility] Called and spoke to pt with PKR recommendations. Pt v/u. Simonot ordered and scheduled next avail appt at [facility]. documented in this encounter [facility] 06-17-2024 Telephone encounter Note Pt called in to [facility] stating last night around 9:30pm she could feel her heart racing and she did not feel right. She didn't think too much off it and went to bed. She said her fit bit stated signs of AFIB were detected and hear heart rate ranged from 44-180. Today she feels okay just tired. Sending message to [facility] for recommendations. [facility] 06-17-2024 Telephone encounter Note Let's get mcot 2 weeks Have her seen in [facility] 06-17-2024 Telephone encounter Note Called and spoke to pt with PKR recommendations. Pt mindy/milagros Miller ordered and scheduled next avail appt at [place]. [facility] 05-26-2024 Miscellaneous Notes Per June 2024 recall, patient is due for follow up with Dr. Healy. Please call and schedule patient. Spoke with patient and scheduled appt documented in this encounter [facility] 05-26-2024 Telephone encounter Note Per June 2024 recall, patient is due for follow up with Dr. Healy. Please call and schedule patient. [facility] 05-26-2024 Telephone encounter Note Spoke with patient and scheduled appt [facility] 03-23-2024 History of Present illness Narrative Images from the original note were not included. [facility] Solangetien Lucas Date of visit: 03/23/2024 Date of [...] delivery Encounter for sterilization BMI 50.0-59.9, adult ([facility]) Gestational hypertension, third trimester Intrauterine PFO (patent foramen ovale) TIA (transient ischemic attack) Past Medical History: Diagnosis Date Abnormal Pap smear of cervix Anxiety Atrial septal defect Gestational diabetes mellitus Hypertension Migraines Morbid obesity ([facility]) Panic attacks PFO (patent foramen ovale) Sprain of ankle, right TIA (transient ischemic attack) Tobacco abuse Past Surgical History: Procedure Laterality Date BACK SURGERY 2008 disc shaved (bulging) and fused 2 of them together Was in college REPEAT WITH IUD INSERTION N/A 07/29/2018 Performed by Benita Sarabia MD at [facility] OR SECTION W/ TUBAL LIGATION 10/12/2021 COLPOSCOPY Intracardiac echocardiogram N/A 03/13/2024 Performed by Dante Degroot MD at [facility] CARDIAC CATH LABS Patent foramen ovale closure with cath/patch/ICE N/A 03/13/2024 Performed by Dante Degroot MD at [facility] CARDIAC CATH LABS TONSILLECTOMY Family History [...] Interpersonal Safety: Unknown (12/18/2023) Received from [facility] Safety & Environment Fear of Current [...] Menorrhagia, anemia -Encouraged follow-up w/ PCP and CATERING AND EVENTS MANAGER given current need for DAPT with known [...] MCQUEEN DO Referring Physician: Edward Mcqueen DO [address] [place] [address] CRISTINA Saba 03/23/24 1122 documented in this encounter [employer] 03-11-2024 History of Present illness Narrative Called patient to advise her she will need a test prior to her PFO closure procedure, she states she had a tubal. Spoke with dentures lab technician staff, no need for test given patient's history. Will update her chart to reflect her surgical history. Per [facility] csection with tubal performed on 10/12/21. Order for test cancelled. documented in this encounter [employer] 03-05-2024 Miscellaneous Notes Called pt to r/s time of PFO closure on 03-12 to 2:30 and pt to arrive at 1:00p. Pt v/u. Went over reminder info listed below with pt. Reminder call for patient's upcoming PFO Closure procedure. Scheduled on: 03-12-24 at 2:30 Arrival time: 1:00p NPO after midnight the night before. Meds to hold: none Labs completed: no-reminded pt Needs cross country truck driver home once discharged. documented in this encounter [facility] 03-05-2024 Telephone encounter Note Called pt to r/s time of PFO closure on 03-12 to 2:30 and pt to arrive at 1:00p. Pt v/u. Went over reminder info listed below with pt. Reminder call for patient's upcoming PFO Closure procedure. Scheduled on: 03-12-24 at 2:30 Arrival time: 1:00p NPO after midnight the night before. Meds to hold: none Labs completed: no-reminded pt Needs cross country truck driver home once discharged. [facility] 02-17-2024 History of Present illness Narrative Images from the original note were not included. [facility] Structural heart clinic TELEHEALTH VIRTUAL [...] Gestational diabetes mellitus Hypertension Migraines Morbid obesity ([facility]) Panic attacks PFO (patent foramen ovale) Sprain [...] Interpersonal Safety: Unknown (12/18/2023) Received from [facility] Safety & Environment Fear of Current [...] Dr. Tamika Martinez documented in this encounter [facility] 01-29-2024 History of Present illness Narrative Images from the original note were not included. [facility] Telestroke Clinic Visit [address] [facility] [id number] Patient: Solange Lucas Date of : 1985 Encounter Date: 01/29/2024 Patient Care Team: Edward Mcqueen DO as PCP - General (Internal Medicine) ADELA Alejandre as Phlebotomy Instructor (Midwifery) Patient Location: home Patient Consent obtained: yes, Verbal Prior to beginning this clinical portion of this visit, the patient/family has consented to the use of this telemedicine E-visit and initiated the contact. They have also consented to using [employer] as a communications platform, understanding the privacy limitations, and telehealth and HIPAA waivers as established in the [facility] expansion of telehealth benefits under the 1135 waiver authority and the Coronavirus Preparedness and Response Supplemental Appropriations Act Dated September and as summarized in September 22, 2019 CMS FAQ on the Coronavirus (COVID-19) public health emergency. The patient was last seen by telestroke at [facility] in December 2023 . Reason for Visit: recent TIA x2 History of Present Illness: Subjective: Solange Lucas is a right handed 38 y.o. female with past medical history significant for HTN and PFO who was hospitalized in December 2023 for TIA. Patient had initially presented with right arm weakness and expressive aphasia to [place] [facility]. Patient was subsequently admitted and [...] Gestational diabetes mellitus Hypertension Migraines Morbid obesity ([facility]) Panic attacks Sprain of ankle, right Tobacco [...] 07/29/2018 Performed by Benita Sarabia MD at [facility] OR SECTION COLPOSCOPY TONSILLECTOMY Current Outpatient Medications [...] 0=No abnormality Total: 0 NIHSS 0 Modified [place] Score: 0 Risk Factor Management: Hypertension target range 130-140/70-80 Lipid range - LDL < 70 and checked every 6 months, fasting Diabetes - HgB A1C <7 Assessment/Plan: Patient Active Problem List Diagnosis Acne Abnormal facial hair Gestational diabetes mellitus History of delivery Encounter for sterilization BMI 50.0-59.9, adult ([facility]) Gestational hypertension, third trimester Intrauterine Patient is a 38-year-old female who sustained a TIA that localized to the left MCA distribution at [facility] in December 26, 2023 with a negative [...] This note was completed using a voice special education associate system. Every effort was made to ensure accuracy; however, inadvertent computerized special education associate errors may be present Please note case was done in collaboration with: patient I have spent 30 minutes personally reviewing previous history, imaging, and performing a face to face real time video health assessment on this patient via camera. If you have any further questions please feel free to contact our office at [facility]. This is a telemedicine visit. Verbal [...] patient needs it documented in this encounter [facility] 01-29-2024 Instructions Blane Healy MD - 01/29/2024 3:00 PM EDT Continue ASA and statin. Complete event monitor If monitor is negative, reasonable to pursue PFO closure If event monitor is positive for AFib/flutter, will start patient on AC Followup in approx. 5-6 months. Continue to followup with cardiology. documented in this encounter [facility] 12-26-2023 Miscellaneous Notes ----- Message from ANA CRISTINA Hagan sent at 12/26/2023 9:49 AM EDT ----- This is Barbie's BFF. I spoke to PKR and we are just going to proceed w/ getting the EMMA and wireless tele now. I'm waiting on records from [place] to confirm if she needs hypercoag testing or not. I placed the MCOT order, please just help arrange for the EMMA. Left message for pt Images from the original note were not included. Pt called back and scheduled EMMA. Instructed below were given verbally over the phone as well as sent via Gro. [facility]: EMMA Procedure: Transesophageal Echocardiogram Testing Location: [facility] ([address] [place] [address]. [place] [address]) Date/Time of Procedure: 01/13/2024 at 08:45 am [...] only. Other Instructions: [x] Must have a cross country truck driver as you will be unable to drive once discharged Important Information Notify the [facility] of any illness, infection or COVID symptoms or a COVID positive result immediately at [phone] Please notify the [facility] if [...] please call the [facility] at [phone] documented in this encounter [facility] 12-26-2023 Telephone encounter Note ----- Message from ANA CRISTINA Hagan sent at 12/26/2023 9:49 AM EDT ----- This is Barbie's BFF. I spoke to PKR and we are just going to proceed w/ getting the EMMA and wireless tele now. I'm waiting on records from [facility] to confirm if she needs hypercoag testing or not. I placed the MCOT order, please just help arrange for the EMMA. [facility] 12-26-2023 Telephone encounter Note Left message for pt [facility] 12-26-2023 Telephone encounter Note Images from the original note were not included. Pt called back and scheduled EMMA. Instructed below were given verbally over the phone as well as sent via [employer]. [facility]: EMMA Procedure: Transesophageal Echocardiogram Testing Location: [facility] ([address] [place] [address] [place] [address]) Date/Time of Procedure: 01/13/2024 at 08:45 am [...] only. 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 Prior evaluation with Dr. Palomino, [facility]. Chart reviewed, spoke with PKR. Will proceed with EMMA, 30 day wireless tele, and hypercoag testing (if not already done). Follow-up in clinic after that. Will get all records/images from [facility]. ANA CRISTINA Saba 12/26/23 0949 documented in this encounter [employer] 12-18-2023 Miscellaneous Notes Yasmine Alexandre, SPECIAL PROJECTS COORDINATOR-TABLE MAKER P [facility] Stroke Scheduling; P [facility] Stroke Rail Signal Worker; High risk tia. Follow up telemedicine in 4 weeks with dangelo healy fellow. 30 day event monitor on discharge. Also with pfo. May need closure going to see [facility] cardiology to discuss. Called patient and scheduled video visit with Dr. Healy on 01/29/24 at 1500 documented in this encounter [facility] 12-18-2023 Telephone encounter Note OFE Weiss P [facility] Stroke Scheduling; P [facility] Stroke Rail Signal Worker; High risk tia. Follow up telemedicine in 4 weeks with dangelo healy fellow. 30 day event monitor on discharge. Also with pfo. May need closure going to see [facility] cardiology to discuss. Called patient and scheduled video visit with Dr. Healy on 01/29/24 at 1500 [facility] 12-18-2023 Miscellaneous Notes ----- Message from OFE Weiss sent at 12/18/2023 10:36 AM EDT ----- Regarding: follow up High risk tia. Follow up telemedicine in 4 weeks with dangelo healy fellow. 30 day event monitor on discharge. Also with pfo. May need closure going to see [facility] cardiology to discuss. Pt scheduled 01/29/24 documented in this encounter [facility] 12-18-2023 Telephone encounter Note ----- Message from OFE Weiss sent at 12/18/2023 10:36 AM EDT ----- Regarding: follow up High risk tia. Follow up telemedicine in 4 weeks with dangelo healy fellow. 30 day event monitor on discharge. Also with pfo. May need closure going to see [facility] cardiology to discuss. 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) [employer] Other 10-16-2023 Evaluation note* Encounter Date Diagnosis Assessment Notes Treatment Notes Treatment Clinical Notes Apr, Mild episode of recurrent major depressive disorder (ICD-10 - F33.0) [employer] Other 10-03-2023 Evaluation note* Encounter Date [...] Treat underlying condition and insomnia should improve [employer] Other 02-22-2023 Evaluation note* Encounter Date Diagnosis Assessment Notes Treatment Notes Treatment Clinical Notes Aug, Pharyngitis due to Streptococcus species (ICD-10 - J02.0) Gargle w/ salt water, tylenol and rest [employer] Other 04-09-2022 History of Present illness [...] Message received from ADELA Caceres who is agricultural produce commission agent today that my patient has arrived to the unitand she has elevated blood pressures. Hypertension protocol being started and Dr Panda would like to proceed with her repeat section soon. 0955 this write leaves my office and enroute to [place], documented in this [facility] Phone: 1(384) 231-784603-19-2022 History of Present illness Narrative* Shanel Raymundo RN - 09/23/2021 3:40 PM EDT Pt here for scheduled NST. Pt states she is insulin controlled gestational diabetic and [facility]. Pt reports + movement today. Pt denies vaginal bleeding or leaking offluid. Pt states that she sometimes has back pain if she stands for too long, pt denies pain currently. Pt denies pain or burning when urinating. Pt denies headache or blurred vision. marker button given. documented in this [facility] Phone: [phone]) 685-395812-08-2021 Evaluation note* Encounter Date Diagnosis Assessment Notes [...] Patient care instructions given in writting by [facility] document. [employer] Other Evaluation note* Diagnosis Diet controlled gestational diabetes mellitus (GDM) in third trimester documented in this encounter [employer] Phone: evaluation note* Diagnosis Diet controlled gestational diabetes mellitus (GDM) in third trimester documented in this encounter [employer] Phone: evaluation note* Diagnosis Diet controlled gestational diabetes mellitus (GDM) in third trimester documented in this encounter [employer] Phone: evaluation note* Diagnosis Diet controlled gestational diabetes mellitus (GDM) in third trimester documented in this encounter [employer] Phone: [email or web address] note* Diagnosis Abdominal pain- Primary Abdominal pain, unspecified site Born by section Hypertension affecting in first trimester Hypertension affecting in third trimester documented in this encounter [employer] Phone: [email or web address] noteNo [facility] [employer] [employer] [facility] Other Evaluation note* Diagnosis Onset Date Resolution Status Anemia acute PFO (patent foramen ovale) a cute TIA (transient ischemic attack) acute Type 2 diabetes mellitus with hyperglycemia acute [facility] Work Phone: Evaluation note* Diagnosis Inclusion cyst- Primary Sebaceous cyst [facility] Diagnosis Palpitations- Primary PFO (patent foramen ovale) Ostium secundum type atrial septal defect S/P percutaneous patent foramen ovale closure Other postprocedural status TIA (transient ischemic attack) Unspecified transient cerebral ischemia [facility] Diagnosis Onset Date Resolution Status Admit Date Anemia acute August 18, 2024 1:20pm Bradycardia acute August 1:20pm Fatigue acute August 18, 2024 1:20pm [facility] Work Phone: Evaluation note* Diagnosis PFO (patent foramen ovale)- Primary Ostium secundum type atrial septal defect TIA (transient ischemic attack) Unspecified transient cerebral ischemia Palpitations [facility]* Diagnosis TIA (transient ischemic attack)- Primary Unspecified transient cerebral ischemia [facility]* Diagnosis TIA (transient ischemic attack)- Primary Unspecified transient cerebral ischemia [facility]* Diagnosis PFO (patent foramen ovale)- Primary Ostium secundum type atrial septal defect PFO (patent foramen ovale)- Primary Ostium secundum type atrial septal defect History of delivery PFO (patent foramen ovale) Ostium secundum type atrial septal defect [facility]* Diagnosis PFO (patent foramen ovale)- Primary Ostium secundum type atrial septal defect S/P percutaneous patent foramen ovale closure Other postprocedural status documented [facility]* Diagnosis Palpitations- Primary documented [facility]* Diagnosis Irregular menstrual cycle Menorrhagia with irregular cycle PCOS (polycystic ovarian syndrome) Polycystic ovaries documented in this encounter [facility]* Diagnosis LOC (loss of consciousness) ([facility] Primary Other alteration of consciousness documented [facility]* Diagnosis Paroxysmal A-fib ([facility] Primary TIA (transient ischemic attack) Unspecified transient cerebral ischemia documented [facility] noteNo assessment information available [facility] Work Phone: Hispcnt general Narrative - Reported* Type Description Date Medical History anxiety Surgical History back surgery Surgical History tonsillectomy Surgical History C section Surgical History PE tubes Surgical History adnoidectomy Hospitalization History child [employer] Other Hisaror general Narrative - Reported* Type Description Date [...] History child Hospitalization History SEE SURGICAL HX [employer] Other Hisbyry general Narrative - Reported* Type Description Date [...] History child Hospitalization History SEE SURGICAL HX [employer] [facility] Other Hospital Discharge instructions* Attachments The following attachments cannot be sent through Care Everywhere. * Section: Post-op (South African) * (South African) * Video: Caring for Yourself After Delivery (South African) * : Exercises (South African) * Depression: (South African) * Parenting: Stress and Infants (South African) [facility] Work Phone: InstructionsNot on filedocumented in this [...] on filedocumented in this encounter [facility] Summary Purpose Family History Relationship Condition Age at Onset Recorded Date/T eladio Not Specified Diabetes mellitus Unknown Relationship Condition Age at Onset Recorded Date/T eladio mother Diabetes mellitus Unknown Advance Directives Latest Code [...] mellitus with hyperglycemia Chief Complaint Admit Date [facility] ER:Syncope August 18, 2024 1:20pm Reason for Visit Admit Date Anemia August 18, 2024 1:20pm Bradycardia August 18, 2024 1:20pm Fatigue August 18, 2024 1:20pm Chief Complaint Admit Date Amb Documentation September 03, 2024 9:34am neck swelling November 16, 2024 3:32p m Reason for Referral Specialty Diagnoses / Procedures Referred By Contac t Referred To Contact Diagnoses PFO (patent foramen ovale) S/P percutaneous patent foramen ovale closure Procedures Echo complete W/O contrast Mick Jett PA [address] [address] Referral ID Status Reason Start Date Expiration Date V isits Requested Visits Authorized [id number] Pending Review 03/23/2024 03/23/2025 1 1 Specialty Diagnoses / Procedures Referred By Contac t Referred To Contact Diagnoses PFO (patent foramen ovale) TIA (transient ischemic attack) Palpitations Procedures Wireless Telemetry (In Office) Mick Jett PA [address] [address] Referral ID Status Reason Start Date Expiration Date V isits Requested Visits Authorized [id number] Pending Review 12/26/2023 12/25/2024 1 1 Additional Source Comments INFORMATION SOURCE (unrecogn ized section and content) DATE CREATED AUTHOR 12/31/2017 [facility] DATE CREATED AUTHOR AUTHOR'S ORGANIZ ATION 05/15/2021 [facility] DATE CREATED AUTHOR AUTHOR'S ORGANIZ ATION 06/21/2021 [facility] DATE CREATED AUTHOR AUTHOR'S ORGANIZ ATION 09/27/2021 [facility] dical Specialist DATE CREATED AUTHOR AUTHOR'S ORGANIZ ATION 10/16/2021 [facility] DATE CREATED AUTHOR AUTHOR'S ORGANIZ ATION 08/28/2022 [facility] DATE CREATED AUTHOR AUTHOR'S ORGANIZ ATION 04/28/2024 [facility] DATE CREATED AUTHOR AUTHOR'S ORGANIZ ATION 06/21/2024 [facility] DATE CREATED AUTHOR AUTHOR'S ORGANIZ ATION 08/25/2024 [facility] dical Specialists EPIC DATE CREATED AUTHOR AUTHOR'S ORGANIZ ATION 08/29/2024 [facility] DATE CREATED AUTHOR AUTHOR'S ORGANIZ ATION 01/02/2025 [facility] Reason for Visit (unrecogniz ed section and content) Reason Comments Non-stress Test Reason Comments Abdominal Pain Specialty Diagnoses / Procedures Referred By Leila t Referred To Contact Diagnoses Abdominal pain Hypertension affecting in first trimester Hypertension affecting in third trimester Bryanna Barth APRN - CNM [address] [place] [address] [facility] [address] [place] [address] Referral ID Status Reason Start Date Expiration [...] Care Teams (unrecognized sec tion and content) Freelance Writer Relationship Specialty Start Date End Date Edward Mcqueen DO [address] [place] [address] PCP - General Internal Medicine 06/21/21 Freelance Writer Relationship Specialty Start Date End Date Edward Mcqueen, [address] [place] [address] PCP - General Internal Medicine 06/21/21 Freelance Writer Relationship Specialty Start Date End Date Edward Mcqueen, DO [address] [place] [address] PCP - General Internal Medicine 06/21/21 Freelance Writer Relationship Specialty Start Date End Date Edward Mcqueen, [address] [place] [address] PCP - General Internal Medicine 06/21/21 Freelance Writer Relationship Specialty Start Date End Date RicharEdward [address] [place] [address] PCP - General Internal Medicine 06/21/21 Freelance Writer Relationship Specialty Start Date End Date Edward Mcqueen DO [address] [place] [address] PCP - General Internal Medicine 06/21/21 Team [...] December 23, 2023 End: December 23, 2023 Freelance Writer Relationship Specialty Start Date End Date Edward Mcqueen DO [address] [place] [address] PCP - General Internal Medicine 05/19/18 Freelance Writer Relationship Specialty Start Date End Date Edward Mcqueen DO [address] [place] [address] PCP - General Internal Medicine 05/19/18 Freelance Writer Relationship Specialty Start Date End Date Edward Mcqueen DO [address] [place] [address] PCP - General Internal Medicine 05/19/18 Team Status: Active Member Role Status Dates Edward Mcqueen DO Primary Care Provider Active Start: August 17, 2024 Nathanael Morales DO Attending Provider Active S tart: August 17, 2024 Team Status: Inactive Member Role Status Dates Edward Mcqueen DO Primary Care Provide r, Attending Provider Active Start: August 18, 2024 End: August 18, 2024 Freelance Writer Relationship Specialty Start Date End Date Edward Mcqueen DO [address] [place] [address] PCP - General Internal Medicine 05/19/18 Freelance Writer Relationship Specialty Start Date End Date Ewdard Mcqueen DO [address] [place] [address] PCP - General Internal Medicine 05/19/18 Freelance Writer Relationship Specialty Start Date End Date Edward Mcqueen DO [address] [place] [address] PCP - General Internal Medicine 05/19/18 Freelance Writer Relationship Specialty Start Date End Date Edward Mcqueen DO [address] [place] [address] PCP - General Internal Medicine 05/19/18 Freelance Writer Relationship Specialty Start Date End Date Edward Mcqueen DO [address] [place] [address] PCP - General Internal Medicine 05/19/18 Freelance Writer Relationship Specialty Start Date End Date Edward Mcqueen DO [address] [place] [address] PCP - General Internal Medicine 05/19/18 Freelance Writer Relationship Specialty Start Date End Date Edward Mcqueen DO [address] [place] [address] PCP - General Internal Medicine 05/19/18 Freelance Writer Relationship Specialty Start Date End Date Edward Mcqueen DO [address] [place] [address] PCP - General Internal Medicine 05/19/18 Team Status: Active Member Role Status Dates Edward Mcqueen DO Primary Care Provide r, Attending Provider Active Start: September 02, 2024 Team Status: Active Member Role Status Dates Edward Mcqueen DO Primary Care Provide r, Attending Provider Active Start: September 03, 2024 Team Status: Active Member Role Status Dates Edward Mcqueen DO Primary Care Provider Active Start: September 03, 2024 Celena Cintron CMA Attending Provider Active Start: September 03, 2024 Team Status: Active Member Role Status Dates Edward Mcqueen DO Primary Care Provider Active Start: November 13, 2024 Dennis Motley MD Attending Provider Active Start : November 13, 2024 Team Status: Inactive Member Role Status Dates Edward Mcqueen DO Primary Care Provide r, Attending Provider Active Start: November 16, 2024 End: November 16, 2024 Freelance Writer Relationship Specialty Start Date End Date Edward Mcqueen DO [address] [place] [address] PCP - General Internal Medicine 05/19/18 Ordered [...] Kulkarni, SHANON) 0807 (Given - Provider: Nohemy Nuñez, SHANON)2047 (Given - Provider: Elif Prince, SHANON) 0930 [...] Glez RN) 0151 (Given - Provider: Elif Prince, SHANON)1031 [...] TIMES DAILY WITH MEALS, First dose on Denisha 10/12/21 at 1700, Until Discontinued, Low Dose Correction [...] Davis RN) 0111 (Given - Provider: Lilo Kulkarni, SHANON)0625 (Given - Provider: Lilo Kulkarni RN)1126 (Given [...] RN - Reason: Other - Comment: IV removed)2099 (Due) stvccqf-otfiyq-cxrdx pertussis (BOOSTRIX) injection 0.5 mL 0.5 mL, [...] (NoRateChange - Provider: Ruben Mccabe APRN - ALARM SECURITY OR SURVEILLANCE MONITOR) lactated ringers infusion IntraVENous, at 50 mL/hr, CONTINUOUS, Starting on Denisha 10/12/21 at 1345, 1256 (Rate/Dose Change - Provider: Milla Davis RN)2150 (Rate/Dose Change - Provider: Lilo Kulkarni RN)2245 (Rate/Dose Change - Provider: Lilo Kulkarni RN) 0522 (Rate/Dose Change - Provider: Lilo Kulkarni RN) 1127 (Stopped - Provider: Leda Glez RN) magnesium sulfate (56206 mg/500mL infusion) (CANCELED) 2,000 mg/hr (50 mL/hr), [...] (NoRateChange - Provider: Ruben Mccabe APRN - ALARM SECURITY OR SURVEILLANCE MONITOR) magnesium sulfate (75838 mg/500mL infusion) () 1,000 mg/hr (25 mL/hr), IntraVENous, CONTINUOUS, Starting on Denisha 10/12/21 at 2200, Until Sat10/13/21 at 1159, 1000 mg = 1 gram; 2000 mg = 2 grams; 20,000 mg = 20 grams 2149 (New Bag - Provider: Lilo Kulkarni RN) 0521 (Rate/Dose Change - Provider: Lilo Kulkarni RN)0810 (New Bag - Provider: Nohemy Nuñez, SHANON)1102 (Stopped - Provider: Nohemy Nuñez, SHANON) PRN Medication Order 10/12/2021 10/13/2021 10/14/2021 0.9 [...] 20 minutes. 1006 (Given - Provider: Milla Davis, SHANON) ondansetron (ZOFRAN) injection 4 mg 4 mg, [...] Davis RN) 104 (Given - Provider: Nohemy Nuñez, SHANON)2046 (Given [...] (See Alternative - Provider: Milla Davis RN) 104 (See Alternative - Provider: Nohemy Nuñez, SHANON)2046 [...] BE BASED ON THE PRIMARY CLINICAL RECORDS. [facility], [facility]. provides no warranty or guarantee of the accuracy or completeness of information in this document.
--- OUTSIDE RECORDS SUMMARY | 2025-04-13 10:00 | XMS_ITS | Encounter Summary ---
Author Organization [facility] Address [address] [place] [address] Care Team Providers Care Lead Ios Developer Name Role Phone Edward Page DO Primary Care Provider [phone] Encounter Details Date Type Department Care Team (Late st Contact Info) Description 04/13/2025 10:00 AM EDT Office Visit [facility] [address] [place] [address] Dennis Ortega MD [address] [place] [id number] S/P ablation of atrial fibrillation (Primary Dx) Social History Tobacco Use Types Packs/Day Years Used Date Smoking Tobacco: Never Smokeless Tobacco: Never Alcohol Use Standard Drinks/Week Comments Yes 0 (1 standard drink = 0.6 oz pur e alcohol) occasional [place] Safety & Environment Answer Date Rec orded Fear of Current or Ex-Partner Not on file Emotionally Abused Not on file 12/18/2023 Physically Abused Not on file 12/18/2023 Sexually Abused Not on file 12/18/2023 Physically or Sexually Abused Not on file Comments No Sex and Gender Information Value Date Recorded Sex Assigned at Female 12/20/2023 9:46 AM EDT Legal Sex Female 10:53 AM EDT Gender Identity Female 12/20/2023 9:46 AM EDT Sexual Orientation Heterosexual or Straight 12/06 9:46 AM EDT documented as of this encounter Last Filed Vital Signs Vital Sign Reading Time Taken Comments Blood Pressure 121/72 04/13/2025 10:21 AM EDT Pulse 60 04/13/2025 10:21 AM EDT Temperature - - Respiratory Rate - - Oxygen Saturation 99% 04/13/2025 10:21 AM EDT Inhaled Oxygen Concentration - - Weight 77.1 kg (170 lb) 04/13/2025 10:21 AM EDT Height 157.5 cm (5' 2 ) 04/13/2025 10:21 AM EDT Body Mass Index 31.09 04/13/2025 10:21 AM EDT documented in this encounter Functional Status * BP Answer Date of Assessment Author 121/72 04/13/2025 10:21 AM EDT Charlene Maynard am, [place] * Pulse Answer Date of Assessment Author 60 04/13/2025 10:21 AM EDT Charlene Maynard am, [place] * Patient Position Answer Date of Assessment Author Sitting 04/13/2025 10:21 AM EDT Charlene Maynard am, MA * BP Answer Date of Assessment Author 121/72 04/13/2025 10:21 AM EDT Charlene Maynard am, MA * Pulse Answer Date of Assessment Author 60 04/13/2025 10:21 AM EDT Charlene Maynard am, MA * SpO2 Answer Date of Assessment Author 99 04/13/2025 10:21 AM EDT Charlene Maynard am, MA * BP Location Answer Date of Assessment Author Left arm 04/13/2025 10:21 AM EDT Charlene Maynard am, MA * Patient Position Answer Date of Assessment Author Sitting 04/13/2025 10:21 AM EDT Charlene Maynard am, [place] documented as of this encounter Progress Notes * Dennis Ortega MD - 04/13/2025 10:00 AM EDT Images from the original note were not included. [place] Electrophysiology Consult Note [place] [facility] Reason for visit: 04/13/25 Patient is here today per Hussein Salinas request. Patient states she has low iron and will possible be getting infusions. Patient denies palpitations/racing heart, dizziness/lightheaded, leg swelling. Patient complains of fatigue. Review of Systems Constitutional: Positive for malaise/fatigue. HPI: Adri Lucas is a 40 y.o. year old with past medical history of CVA and PFO s/p closure [facility] (Dr. Kanu Degroot) who has been followed up by the primary care team and where she was evaluated for event of palpitations. The third event monitor that was 1 did not reveal Ana Maria-fib. She certainly experienced syncope and had a 14-day Holter monitor that was ordered by Dr. Page. The episode occurred while she was at [...] PSH: Past Surgical History: Procedure Laterality Date ABLATION OF DYSRHYTHMIC FOCUS ADENOIDECTOMY BACK SURGERY SECTION, CLASSIC SECTION, LOW TRANSVERSE LUMBAR LAMINECTOMY 2007 OTHER SURGICAL HISTORY MYRINGOTOMY AND TUBES OTHER SURGICAL HISTORY 02/2024 s/p amplatz occlusion device TONSILECTOMY, ADENOIDECTOMY, BILATERAL MYRINGOTOMY AND TUBES TONSILLECTOMY SH: Social Drivers of Health Tobacco Use: Low Risk (04/13/2025) Patient History Smoking Tobacco Use: Never Smokeless Tobacco Use: Never Passive Exposure: Not on file Alcohol Use: Not on file Financial Resource Strain: Not on file Food Insecurity: No Food Insecurity (07/31/2024) Received from [facility] Hunger Screening Within the past 12 [...] Allergies: Allergies Allergen Reactions Penicillins Hives Weight: 77.1kg Visit Vitals BP 121/72 (BP Location: Left arm, Patient Position: Sitting) Pulse 60 Ht 1.575 m (5' 2 ) Wt 77.1 kg (170 lb) SpO2 99% BMI 31.09 kg/m?? OB Status Having periods Smoking Status Never BSA 1.84 m?? Meds: Current Outpatient Medications on File Prior [...] 81 mg by mouth in the morning. (Patient not taking: Reported on 04/13/2025) atorvastatin (Lipitor) 20 mg tablet Take 20 mg by mouth in the morning. (Patient not taking: Reported on 04/13/2025) buPROPion (Wellbutrin) 100 mg tablet Take 50 mg by mouth twice a day. (Patient not taking: Reportedon 04/13/2025) famotidine (Pepcid) 20 mg tablet Take 1 tablet (20 mg) by mouth two times daily. (Patient not taking: Reported on 04/13/2025) 60 tablet 0 No current facility-administered medications on file prior [...] , THYROID PEROXIDASE AB , BNP EKG: Encounter Date: 11/19/24 ECG 12 lead Result Value Ventricular Rate 70 Atrial Rate 70 UT Interval 158 QRS DURATION 82 QT Interval 422 QTC CALCULATION(BAZETT) 455 P [place] 48 R-Plains 41 T Wave [place] 37 Impression Normal sinus rhythm Normal ECG When compared with ECG of 19-NOV-2024 11:33, Vent. rate has increased BY 25 BPM QT has lengthened Confirmed by Chrystal MASON, NIEVES Fuentes ([id number]) on 11/19/2024 3:38:21 PM Echo: 12/18/23 Stress test: Coronary angiogram: @CATH@ Diagnostic Imaging: Echocardiogram 12/17/2023: CONCLUSION: 1. Normal ventricular size and systolic function. Estimated LVEF is 65%. 2. Normal diastolic function. 3. No significant valvular dysfunction. 4. Normal right-sided pressures. 5. Agitated saline contrast injections show evidence of significant kjwph-ri-pdhy shunt at the interatrial septal level at [...] the thorax by aforementioned artifact. In the cervicalregion is unremarkable. 0% stenosis cervical ICA. The ECA is widely patent. ECG 12/17/2023: Sinus rhythm. EP study 11/19/2024 LA baseline (mmHg) 1st and 2nd 17/11 [...] Normal LA voltage 4. Normal LA pressures. Assessment and Plan: - Afib: s/p PVI: Can come off Flecanide and given [id number] score of 2 for the stroke she will be on long-term anticoagulation - PFO s/p amplatz occlusion device - Menorrhagia: Patient is supposed to be scheduled for uterine ablation. I have recommended that the patient proceed with this prior to getting A-fib ablation. Because she had a stroke Dennis Ortega MD Cardiac Electrophysiology [facility] documented in this encounter Plan of Treatment Not on file documented as of this encounter Visit Diagnoses Diagnosis S/P ablation of atrial fibrillation- Primary Other postprocedural status documented in this encounter Care Teams Lead Ios Developer Relationship Specialty Start Date End Date Edward Page DO PCP - General 12/20/23 documented as of this encounter
--- OUTSIDE RECORDS SUMMARY | 2025-04-24 12:37 | XMS_ITS | Clinical Summary ---
Author Organization Social 2 Steps tem Address [id number] [address] [place] [address] Care Team Providers Care Parliamentary Counsel Name Role Phone CamiloEdward Primary Care Provider [phone] Allergies Active Allergy Reactions Criticality Noted Date Comments Penicillin G Hives 03/13/2017 Penicillins Hives 03/13/2017 Medications buPROPion (WELLBUTRIN) 75 mg tablet Take 1 tablet (75 mg total) by mouth in the morning and 1 tablet (75 mg total) before bedtime. Active aspirin 81 mg chewable tablet Chew 1 tablet (81 mg total) and swallow in the morning. Active clopidogreL (PLAVIX) 75 mg tablet Take 1 tablet (75 mg total) by mouth in the morning. 30 tablet 6 03/13/2024 Active metoprolol succinate XL (TOPROL XL) 25 mg 24 hr tablet Take 1 tablet (25 mg total) by mouth in the morning. 90 tablet 3 09/30/2024 Active apixaban (ELIQUIS) 5 mg tabletIndicatio ns:Paroxysmal A-fib (CMS-HCC),TIA (transient ischemic attack) Take 1 tablet (5 mg total) by mouth in the morning and 1 tablet (5 mg total) before bedtime. 60 tablet 6 09/30/2024 Active Active Problems Problem Noted Date Diagnosed Date Intrauterine 07/29/2018 Gestational hypertension, third trimester 2018 BMI 50.0-59.9, adult 07/18/2018 History of delivery 07/15/2018 Overview (07/15/2018): Desires repeat deliver 39 weeks Encounter for sterilization 07/15/2018 Overview (07/15/2018): Desires sterilization Gestational diabetes mellitus 05/19/2018 Acne 03/13/2017 Abnormal facial hair 03/13/2017 PFO (patent foramen ovale) TIA (transient ischemic attack) Immunizations Immunization Administration Dates Next Due Tdap 07/30/2018 Family History Medical History Relation Name Comments Atrial fibrillation Brother Depression Father Diabetes Father Hypertension Father Heart disease Maternal Grandfather Diabetes Maternal Grandmother Diabetes Mother Heart disease Paternal Grandmother Asthma Sister Relation Name Status Comments Brother Father Maternal Grandfather Maternal Grandmother Mother Paternal Grandmother Sister Social History Tobacco Use Types Packs/Day Years Used Date Smoking Tobacco: Never Smokeless Tobacco: Current Tobacco Cessation:Counseling Given: Not Answered Comments:Nicotine pouch, occasionally. Alcohol Use Standard Drinks/Week Comments Not Currently 0 (1 standard drink = 0.6 oz pur e alcohol) Childcare Answer Date Recorded Childcare Unknown 12/17/2018 Employment Answer Date Recorded Employment Unknown 12/17/2018 Hunger Screening Answer Date Recorded Within the past 12 months we worried whether our food would run out before we got money to buy more. Never True 07/31/2024 Within the past 12 months th e food we bought just didn't last and we didn't have money to get more. Never True 07/31/2024 Purpose - Life Answer Date Recorded Purpose and direction in life Unknown Comments No Sex and Gender Information Value Date Recorded Sex Assigned at Not on file Legal Sex Female 11:32 AM EDT Gender Identity Not on file Sexual Orientation Not on file Last Filed Vital Signs Vital Sign Reading Time Taken Comments Blood Pressure 110/82 07/31/2024 10:52 AM EST Pulse 73 07/31/2024 10:52 AM EST Temperature 37 C (98.6 F) 03/13/2024 6:27 AM EDT Respiratory Rate 17 03/13/2024 12:00 PM EDT Oxygen Saturation 100% 07/31/2024 10:52 AM EST Inhaled Oxygen Concentration - - Weight 72.1 kg (159 lb) 07/31/2024 10:52 AM EST Height 157.5 cm (5' 2.01 ) 07/31/2024 10:[address] Body Mass Index 29.07 07/31/2024 10:52 AM EST Plan of Treatment Health Maintenance Due Date Last Done Comments Tobacco Counseling 1986 Depression Screening 1998 Adult BMI Follow Up Plan 2004 Pap Smear 03/13/2020 03/13/2017, 03/13/2017 COVID-19 Vaccine (4 - 2024-2 6 season) 2025 06/15/2021, 11/30/2020, 10/26/2020 Influenza Vaccine 03/08/2025 03/26/2013 Adult BMI Screening 07/31/2025 07/31/2024 Tobacco Screening 07/31/2025 07/31/2024 DTaP,Tdap and Td Vaccines (7 - Td or Tdap) 07/30/2028 07/30/2018, 03/07/1992, 10/21/1987, Additional history exists Medical Devices Implanted Type Area Pbx Repairer Device Identifier Shelf Expiration Date Model / Serial / Lot Occluder Cv Rt Atr Disc 25mm Lt Atr Disc 18mm Rcmd Shth 8f Rpl [id number] - [id number] Implanted:Qty: 1 on 03/13/2024 by Dante Degroot MD at [facility] Other Implant [facility] [employer] [id number] / / Procedures Procedure Name Priority Date/Time Associated Diagnosis Comments HIGH RISK HPV W/LUCIO Routine 03/13/2017 7:28 AM EDT from Last 3 Months or Most Recently Relevant to Health Maintenance Results * High risk HPV w/lucio (03/13/2017 7:28 AM EDT) Hpv specimen type ThinPrep 03/16/2017 7:29 AM EDT [facility] Hpv 16 Negative Negative 03/19/2017 2:57 PM EDT [facility] Hpv 18 Negative Negative 03/19/2017 2:57 PM EDT [facility] Other high risk hpv Negative Negative 03/19/2017 2:57 PM EDT [facility] Comment: HPV types 31,33,35,39,45,52,56,58,59,66 and 68 DNA were undetectable. 03/13/2017 7:28 AM EDT 03/16/2017 7:28 AM EDT us Not In System Ref Prov LAB BLOOD ORDERABLES Darcy l Result [facility] [address] [place] [address], [place] [facility] from Last 3 Months or Most Recently Relevant to Health Maintenance Insurance [employer] Care Teams Parliamentary Counsel Relationship Specialty Start Date End Date Edward Page DO [address] [place] [address] PCP - General Internal Medicine 05/19/18
--- OUTSIDE RECORDS SUMMARY | 2025-04-24 12:37 | XMS_ITS | CCD ---
Author Organization [facility] Care Team Providers Care Child Adolescent Care Name Role Phone Bentley Amin Unavailable Unavailable [...] Admitting Unavailable BALL, DR BALLARD Attending Unavailable RICHAR, DR BALLARD Primary Care Unavailable RICHAR, DR BALLARD Consulting Unavailable Edward Mcqueen Unavailable MICK JETT Referring Unavailable EDWARD MCQUEEN Primary Care Unavailable MICK JETT Referring Unavailable EDWARD MCQUEEN Primary Care Unavailable RAQUEL NATION Attending Unavailable MICK JETT Referring Unavailable EDWARD MCQUEEN Primary Care Unavailable RAQUEL NATION Admitting Unavailable TAMIKA, P KANU Attending Unavailable EDWARD MCQUEEN Referring Unavailable EDWARD MCQUEEN Primary Care Unavailable TAMIKA, P KANU Admitting [...] Unavailable BALL, EDWARD E Primary Care Unavailable TIESHA, DENNIS Attending Unavailable MOUKARBEL, RAFAEL Attending Unavailable TIESHA, DENNIS Attending Unavailable TIESHA, DENNIS Admitting Unavailable TIESHA, DENNIS Attending Unavailable TIESHA, DENNIS Referring Unavailable TIESHA, DENNIS Referring Unavailable CHRISTIN, HUSSEIN Attending Unavailable Allergies Allergy Classification Reported Allergen(s) Allergy Type Date of Onset Reaction(s) Facility (20 sources) Penicillins; Translations: [PENICILLINS] Propensity to adverse reactions to drug 03-13-20 17 [facility] (20 sources) Penicillin G; Translations: [PENICILLIN G] Drug Allergy 03-13-20 17 [facility] (3 sources) Penicillin Drug Allergy 03-16-20 14 Unknown [facility] Other (4 sources) Substance with penicillin structure and antibacterial mechanism of action (substance) Drug allergy 01-14-20 18 Unknown [employer] Other (3 sources) patient allergy list reviewed by nurse or physicia Propensity to adverse reactions 02-27-20 17 Comment:Done [employer] Other (3 sources) Allergies Reconciled Propensity to adverse reactions Unknown [employer] Other Medications Current Medications Medication Drug Class(es) [...] mg docusate sodium 50 mg / sennosides, snf 8.6 mg oral tablet (1 source) Start: [...] 12:00am [facility] ferrous sulfate 325 (65 Fe) MG tablet [...] 10-13-2021 ketorolac (TORADOL) injection 30 mg levonorgestrel 0.739526 mg/hr intrauterine system (10 sources) Progestin, Progestin-containing [...] premix Start: 10-12-2021 End: 10-13-2021 magnesium sulfate (34600 mg/ 500mL infusion) 2 ml metoclopramide 5 [...] foramen ovale] Onset: 02-18-2024 12-20-2023 Chronic Cardiac dysrhythmias (4 sources) Paroxysmal atrial fibrillation; [...] other diseases of the circulatory system] Onset: 04-13-2025 Episodic Other endocrine disorders (2 sources) Polycystic [...] states; Translations: [Other specified postprocedural states] Onset: 04-13-2025 Episodic Transient cerebral ischemia (20 sources) Transient cerebral ischemia; Translations: [Transient cerebral ischemic attack, unspecified] Onset: 12-26-2023 12-21-2023 Chronic Unclassified (5 sources) No additional problems on file Unclassified (1 source) PFO Onset: 03-13-2024 Past or Other Problems Problem Classification Problem Date Documented Date Episodic/Chronic Cardiac and circulatory congenital anomalies (6 sources) Personal history of (corrected) congenital malformations of heart and circulatory system; Translations: [H/O cardiac surgery] Onset: 03-23-2024 07-31-2024 Episodic Cardiac dysrhythmias (10 sources) Palpitations; Translations: [Palpitations] [...] Value Interpretation Reference Range Facility Office Visiton 04-13-2025 Follow-up visit [id number] Shamir Lucas 1985 F Date Provider Department Center 04/13/2025 DENNIS NOLAN [facility]ADD[facility] Family History Problem Relation Age of Onset Diabetes Mother Hypertension Father Atrial fibrillation Brother Lung cancer Paternal Grandfather Family Status - Relation Status Age at Mother Alive Father Alive Brother Alive Maternal Grandmother Alive Paternal Grandfather Level of Service:95304 [place] OFFICE/OUTPATIENT ESTABLISHED LOW MDM 20 MIN Normal [facility] Follow-Upon 01-01-2025 Follow-Up [id number] Adelaida Lucasporfirio Silvestre 1985 F Date Provider Department Center 01/01/2025 [id number], HUSSEIN [facility] Family History Problem Relation Age of Onset Diabetes Mother Hypertension Father Atrial fibrillation Brother Lung cancer Paternal Grandfather Family Status - Relation Status Age at Mother Alive Father Alive Brother Alive Maternal Grandmother Alive Paternal Grandfather Level of Service:23431 [place] OFFICE/OUTPATIENT ESTABLISHED MOD MDM 30 MIN Normal [facility] Telephoneon 12-04-2024 Telephone [id number] Adelaida Lucasporfirio Silvestre 1985 Date Provider Department Center 12/04/20241986-[facility] Family History Problem Relation Age of Onset Diabetes Mother Hypertension Father Atrial fibrillation Brother Lung cancer Paternal Grandfather Family Status - Relation Status Age at Mother Alive Father Alive Brother Alive Maternal Grandmother Alive Paternal Grandfather Reason for Visit and Comments: f/u post ablation [Other] Normal [facility] BILIRUBIN, DIRECTon 11-20-19 25 Magnesium [Mass/Vol] 0.1 mg/dL Normal 0-0.2 [facility] Comment on above: Performed By: #### L [id number] ####[facility] (BEAKER)[address] [place] [address] BILIRUBIN, TOTALon 5 Bilirubin [Mass/Vol] 0.7 mg/dL Normal 0.3-1.0 [facility] Comment on above: Performed By: #### L [id number] #### [facility] ([facility]) [address] [place] [address] HEMOGLOBINon 11-19-2024 Hemoglobin (Bld) [Mass/Vol] 7.7 g/dL Low 12.0-15.0 [facility] Comment on above: Performed By: #### L [id number] #### [facility] ([facility]) [address] [place] [address] HPon 11-19-2024 [facility] Electrophysiology Consult Note [place] [facility] Reason for visit: HPI: Solange Lucas is a 39 y.o. year old with past medical history of CVA and PFO s/p closure at [facility] (Dr. Kanu Degroot) who has been followed [...] Insecurity: No Food Insecurity (07/31/2024) Received from [facility] Hunger Screening Within the past 12 [...] on file Intimate Partner Violence: Unknown (12/18/2023) [place] Safety & Environment Fear of Current or [...] BNP EKG: (more content not included)... Normal [facility] LACTATE DEHYDROGENASEon 11-05 LACTATE DEHYDROGENASE (U/L) IN SER/PLAS BY LAC->PYR RXN 162 U/L Normal 140-271 [facility] Comment on above: Performed By: #### L [id number] ####[facility] (KASSY)[address] [place] [address] NURSNOTEon 11-19-2024 NURSNOTE Discharge reviewed w margaret pt. And Erika. Maxi oth verbalized understanding of instructions prior to DC with no questions. OK to DC per Dr. Jiménez. Normal [facility] POCT GLUCOSE METER UNSOLICIT ED RESULTSon 11-19-2024 Glucose [Mass/Vol] 83 mg/dL Normal 70-105 [facility] Comment on above: Order Comment: Waive d Testing in the ED is performed under the ED CLIA certificate #[id number]. Result Comment: dhol as Performed By: #### L [id number] ####[facility] ([facility])[address] [place] [address] PROTIME-INRon 11-19-2024 INR IN PPP BY COAGULATION ASSAY 1.15 High 0.90-1.10 [facility] Comment on above: Result Comment: ACCC P [...] 1995;108:[id number]. Performed By: #### L [id number] #### [facility] ([facility]) [address] [place] [address] PROTHROMBIN TIME (PT) IN PPP BY COAGULATION ASSAY 14.7 Seconds Normal 12.3-14.8 [facility] Comment on above: Performed By: #### L [id number] #### [facility] ([facility]) [address] [place] [address] Prep for Procedureon 025 Prep for Procedure [id number] Shamir Lucas 1985 F Date Provider Department Center 11/19/20241986-[facility] Family History Problem Relation Age of Onset Diabetes Mother Hypertension Father Atrial fibrillation Brother Lung cancer Paternal Grandfather Family Status - Relation Status Age at Mother Alive Father Alive Brother Alive Maternal Grandmother Alive Paternal Grandfather Normal [facility] Basophils Auto (Bld) [#/Vol] on 11-13-2024 Basophils (Bld) [#/Vol] Automated basophil count 0.0-0.1 [facility] Basophils/100 WBC Auto (Bld) on 11-13-2024 Basophils/100 WBC (Bld) Automated basophil % 0.2-2.0 [facility] Eosinophils/100 WBC Auto (Bl d)on 11-13-2024 Eosinophils/100 WBC (Bld) Automated eosinophil % Low 0.9-7.0 [facility] Erythrocyte distribution wid th Auto (RBC) [Ratio]on 11-13-2024 Erythrocyte distribution width (RBC) [Ratio] Erythrocyte distribution width [Ratio] by Automated count High 11.0-15.0 [facility] Estimated glomerular filtrat ion rate (GFR) non- Americanon 11-13-2024 GFR/1.73 sq M.predicted among non-blacks MDRD (S/P/Bld) [Vol rate/Area] Estimated glomerular filtration rate (GFR) non- >=60 mL/min/1.7 3m 2 [facility] Hematocrit Auto (Bld) [Volum e fraction]on 11-13-2024 Hematocrit (Bld) [Volume fraction] Hematocrit [Volume Fraction] of Blood by Automated count Low 36.0-48.0 [facility] Hemoglobin [Mass/volume] in Bloodon 11-13-2024 Hemoglobin (Bld) [Mass/Vol] Hemoglobin [Mass/volume] in Blood Low 12.0-16.0 [facility] Laboratory - Chemistry and C hemistry - challengeon 11-13-2024 Calcium [Mass/Vol] 8.3 mg/dL Low 8.5-10.1 [facility] Chloride [Moles/Vol] 98 mmol/L 98-107 [facility] CO2 [Moles/Vol] 27.4 mmol/L 21.0-32.0 [facility] Creatinine [Mass/Vol] 0.68 mg/dL 0.55-1.02 [facility] GFR/1.73 sq M.predicted MDRD (S/P/Bld) [Vol rate/Area] mL/min/{1.73_m2} >=60 mL/min/1.7 3m 2 [facility] Glucose [Mass/Vol] 157 mg/dL High 74-106 [facility] Potassium [Moles/Vol] 4.0 mmol/L 3.5-5.1 [facility] Sodium [Moles/Vol] 132 mmol/L Low 136-145 [facility] Urea nitrogen [Mass/Vol] 12.0 mg/dL 7.0-18.0 [facility] Urea nitrogen/Creatinine [Mass ratio] 17.6 mg/mg [facility] Laboratory - Hematology and Cell countson 11-13-2024 Immature granulocytes/100 WBC (Bld) 0.3 % 0.0-0.5 [facility] Leukocytes [#/volume] correc alfredito for nucleated erythrocytes in Blood by Automated counon 11-13-2024 WBC corrected for nucl RBC Auto (Bld) [#/Vol] Leukocytes [#/volume] corrected for nucleated erythrocytes in Blood by Automated coun 4.0-11.0 [facility] Lymphocytes Auto (Bld) [#/Vo l]on 11-13-2024 Lymphocytes (Bld) [#/Vol] Lymphocytes [#/volume] in Blood by Automated count 1.2-3.8 [facility] Lymphocytes/100 WBC Auto (Bl d)on 11-13-2024 Lymphocytes/100 WBC (Bld) Lymphocytes/100 leukocytes in Blood by Automated count Low 20.5-60.0 [facility] MCH Auto (RBC) [Entitic mass ]on 11-13-2024 MCH (RBC) [Entitic mass] MCH [Entitic mass] by Automated count Low 26.7-34.0 [facility] MCHC Auto (RBC) [Mass/Vol]on 11-13-2024 MCHC (RBC) [Mass/Vol] MCHC [Mass/volume] by Automated count Low 29.9-35.2 [facility] MCV Auto (RBC) [Entitic vol] on 11-13-2024 MCV (RBC) [Entitic vol] MCV [Entitic volume] by Automated count Low 81.0-99.0 [facility] Monocytes Auto (Bld) [#/Vol] on 11-13-2024 Monocytes (Bld) [#/Vol] Automated blood monocyte count 0.3-0.8 [facility] Monocytes/100 WBC Auto (Bld) on 11-13-2024 Monocytes/100 WBC (Bld) Automated monocyte % 1.7-12.0 [facility] Neutrophils Auto (Bld) [#/Vo l]on 11-13-2024 Neutrophils (Bld) [#/Vol] Neutrophils [#/volume] in Blood by Automated count 1.4-6.5 [facility] Neutrophils/100 WBC Auto (Bl d)on 11-13-2024 Neutrophils/100 WBC (Bld) Automated neutrophil % 43.0-75.0 [facility] No Panel Informationon 11-13 Eosinophils # (Auto) 0.0 10 3/uL 0.0-0.7 [facility] Immature Granulocyte # (Auto) 0.02 10 3/uL 0.00-0.03 [facility] Platelet mean volume Auto (B ld) [Entitic vol]on 11-13-2024 Platelet mean volume (Bld) [Entitic vol] Platelet mean volume [Entitic volume] in Blood by Automated count 9.5-13.5 [facility] Platelets Auto (Bld) [#/Vol] on 11-13-2024 Platelets (Bld) [#/Vol] Platelets [#/volume] in Blood by Automated count 150-450 [facility] RBC Auto (Bld) [#/Vol]on RBC (Bld) [#/Vol] Erythrocytes [#/volu me] in Blood by Automated count 4.20-5.40 [facility] Serum or plasma anion gap de terminationon 11-13-2024 Anion gap [Moles/Vol] Serum or plasma anion gap determination [facility] Prep for Procedureon 025 Prep for Procedure [id number] Shamir Lucas 1985 Provider Department Center 10/16/2024 1987-[facility] Family History Problem Relation Age of Onset Diabetes Mother Hypertension Father Atrial fibrillation Brother Lung cancer Paternal Grandfather Family Status - Relation Status Age at Mother Alive Father Alive Brother Alive Maternal Grandmother Alive Paternal Grandfather Normal [facility] Telephoneon 10-15-2024 Telephone [id number] Shamir Lucas 1985 Provider Department Center 10/15/2024 DORA MINER MADDY [facility] Family History Problem Relation Age of Onset Diabetes Mother Hypertension Father Atrial fibrillation Brother Lung cancer Paternal Grandfather Family Status - Relation Status Age at Mother Alive Father Alive Brother Alive Maternal Grandmother Alive Paternal Grandfather Normal [facility] Office Visiton 10-13-2024 Follow-up visit [id number] Shamir Lucas 1985 Provider Department Center 10/13/2024 241-DENNIS [facility] Family History Problem Relation Age of Onset Diabetes Mother Hypertension Father Atrial fibrillation Brother Lung cancer Paternal Grandfather Family Status - Relation Status Age at Mother Alive Father Alive Brother Alive Maternal Grandmother Alive Paternal Grandfather Level of Service:31591 [place] OFFICE/OUTPATIENT NEW MODERATE MDM 45 MINUTES Normal [facility] Orders Onlyon 10-13-2024 Orders Only [id number] Adelaida Lucasporfirio veleztien Konrad 1985 F Date Provider Department Center 10/13/2024 DORA MINER Family History Problem Relation Age of Onset Diabetes Mother Hypertension Father Atrial fibrillation Brother Lung cancer Paternal Grandfather Family Status - Relation Status Age at Mother Alive Father Alive Brother Alive Maternal Grandmother Alive Paternal Grandfather Normal [facility] Basophils Auto (Bld) [#/Vol] on 09-02-2024 Basophils (Bld) [#/Vol] Automated basophil count 0.0-0.1 [facility] Basophils/100 WBC Auto (Bld) on 09-02-2024 Basophils/100 WBC (Bld) Automated basophil % 0.2-2.0 [facility] Eosinophils/100 WBC Auto (Bl d)on 09-02-2024 Eosinophils/100 WBC (Bld) Automated eosinophil % 0.9-7.0 [facility] Erythrocyte distribution wid th Auto (RBC) [Ratio]on 09-02-2024 Erythrocyte distribution width (RBC) [Ratio] Erythrocyte distribution width [Ratio] by Automated count High 11.0-15.0 [facility] Hematocrit Auto (Bld) [Volum e fraction]on 09-02-2024 Hematocrit (Bld) [Volume fraction] Hematocrit [Volume Fraction] of Blood by Automated count Low 36.0-48.0 [facility] Hemoglobin [Mass/volume] in Bloodon 09-02-2024 Hemoglobin (Bld) [Mass/Vol] Hemoglobin [Mass/volume] in Blood Low 12.0-16.0 [facility] INR in Platelet poor plasma by Coagulation assayon 09-02-2024 INR Coag (PPP) [Relative time] INR in Platelet poor plasma by Coagulation assay [facility] Comment on above: DESIRED INR:2.0-3.0 CONDITIONS NOT LISTED BELOW2.5-3.5 FOR PROSTHETIC HEART VALVE REPLACEMENT2.5-3.5 RECURRENT THROMBOSIS Iron binding capacity [Mass/ volume] in Serum or Plasmaon 09-02-2024 Iron binding capacity [Mass/Vol] Iron binding capacity [Mass/volume] in Serum or Plasma 250.0-450. 0 [facility] Iron saturation [Mass Fracti on] in Serum or Plasmaon 09-02-2024 Iron saturation [Mass fraction] Iron saturation [Mass Fraction] in Serum or Plasma [facility] Laboratory - Chemistry and C hemistry - challengeon 09-02-2024 Cobalamin (Vitamin B12) [Mass/Vol] 285 pg/mL [id number] [facility] Comment on above: Performed at: [place] [id number] Director: Eamon Doshi PhD, Phone: [phone] Ferritin [Mass/Vol] 6.0 ng/mL Low 8.0-252.0 [facility] Iron [Mass/Vol] 14.0 ug/dL Low 50.0-170.0 [facility] Magnesium [Mass/Vol] 2.0 mg/dL 1.8-2.4 [facility] TSH Qn 1.138 m[IU]/L 0.358-3.74 0 [facility] Laboratory - Hematology and Cell countson 09-02-2024 Immature granulocytes/100 WBC (Bld) 0.4 % 0.0-0.5 [facility] Leukocytes [#/volume] correc alfredito for nucleated erythrocytes in Blood by Automated counon 09-02-2024 WBC corrected for nucl RBC Auto (Bld) [#/Vol] Leukocytes [#/volume] corrected for nucleated erythrocytes in Blood by Automated coun 4.0-11.0 [facility] Lymphocytes Auto (Bld) [#/Vo l]on 09-02-2024 Lymphocytes (Bld) [#/Vol] Lymphocytes [#/volume] in Blood by Automated count 1.2-3.8 [facility] Lymphocytes/100 WBC Auto (Bl d)on 09-02-2024 Lymphocytes/100 WBC (Bld) Lymphocytes/100 leukocytes in Blood by Automated count 20.5-60.0 [facility] MCH Auto (RBC) [Entitic mass ]on 09-02-2024 MCH (RBC) [Entitic mass] MCH [Entitic mass] by Automated count Low 26.7-34.0 [facility] MCHC Auto (RBC) [Mass/Vol]on 09-02-2024 MCHC (RBC) [Mass/Vol] MCHC [Mass/volume] by Automated count 29.9-35.2 [facility] MCV Auto (RBC) [Entitic vol] on 09-02-2024 MCV (RBC) [Entitic vol] MCV [Entitic volume] by Automated count Low 81.0-99.0 [facility] Monocytes Auto (Bld) [#/Vol] on 09-02-2024 Monocytes (Bld) [#/Vol] Automated blood monocyte count 0.3-0.8 [facility] Monocytes/100 WBC Auto (Bld) on 09-02-2024 Monocytes/100 WBC (Bld) Automated monocyte % 1.7-12.0 [facility] Neutrophils Auto (Bld) [#/Vo l]on 09-02-2024 Neutrophils (Bld) [#/Vol] Neutrophils [#/volume] in Blood by Automated count 1.4-6.5 [facility] Neutrophils/100 WBC Auto (Bl d)on 09-02-2024 Neutrophils/100 WBC (Bld) Automated neutrophil % 43.0-75.0 [facility] No Panel Informationon 09-02 Eosinophils # (Auto) 0.1 10 3/uL 0.0-0.7 [facility] Folate 19.60 ng/mL 8.60-58.90 [facility] Immature Granulocyte # (Auto) 0.02 10 3/uL 0.00-0.03 [facility] Troponin I High Sensitivity 4.8 pg/mL 4.0-51.3 [facility] Comment on above: CUT-OFF POINTS HAVE [...] CLINICAL INFORMATION. Office Visiton 09-02-2024 Follow-up visit [id number] Shamir Lucas 1985 F Date Provider Department Center 09/02/2024 RAFAEL WHITE MADDY [facility] Family History Problem Relation Age of Onset Diabetes Mother Hypertension Father Atrial fibrillation Brother Lung cancer Paternal Grandfather Family Status - Relation Status Age at Mother Father Brother Maternal Grandmother Alive Paternal Grandfather Level of Service:13313 [place] OFFICE/OUTPATIENT ESTABLISHED MOD MDM 30 MIN Normal [facility] Platelet mean volume Auto (B ld) [Entitic vol]on 09-02-2024 Platelet mean volume (Bld) [Entitic vol] Platelet mean volume [Entitic volume] in Blood by Automated count 9.5-13.5 [facility] Platelets Auto (Bld) [#/Vol] on 09-02-2024 Platelets (Bld) [#/Vol] Platelets [#/volume] in Blood by Automated count 150-450 [facility] Prothrombin time (PT)on 08-09 PT Coag (PPP) [Time] Prothrombin time (PT) 9.0-11.6 [facility] RBC Auto (Bld) [#/Vol]on RBC (Bld) [#/Vol] Erythrocytes [#/volu me] in Blood by Automated count 4.20-5.40 [facility] Basophils Auto (Bld) [#/Vol] on 08-17-2024 Basophils (Bld) [#/Vol] Automated basophil count 0.0-0.1 [facility] Basophils/100 WBC Auto (Bld) on 08-17-2024 Basophils/100 WBC (Bld) Automated basophil % 0.2-2.0 [facility] Eosinophils/100 WBC Auto (Bl d)on 08-17-2024 Eosinophils/100 WBC (Bld) Automated eosinophil % Low 0.9-7.0 [facility] Erythrocyte distribution wid th Auto (RBC) [Ratio]on 08-17-2024 Erythrocyte distribution width (RBC) [Ratio] Erythrocyte distribution width [Ratio] by Automated count High 11.0-15.0 [facility] Estimated glomerular filtrat ion rate (GFR) non- Americanon 08-17-2024 GFR/1.73 sq M.predicted among non-blacks MDRD (S/P/Bld) [Vol rate/Area] Estimated glomerular filtration rate (GFR) non- >=60 mL/min/1.7 3m 2 [facility] Hematocrit Auto (Bld) [Volum e fraction]on 08-17-2024 Hematocrit (Bld) [Volume fraction] Hematocrit [Volume Fraction] of Blood by Automated count Low 36.0-48.0 [facility] Hemoglobin [Mass/volume] in Bloodon 08-17-2024 Hemoglobin (Bld) [Mass/Vol] Hemoglobin [Mass/volume] in Blood Low 12.0-16.0 [facility] Laboratory - Chemistry and C hemistry - challengeon 08-17-2024 Calcium [Mass/Vol] 7.9 mg/dL Low 8.5-10.1 [facility] Chloride [Moles/Vol] 104 mmol/L 98-107 [facility] CO2 [Moles/Vol] 29.6 mmol/L 21.0-32.0 [facility] Creatinine [Mass/Vol] 0.60 mg/dL 0.55-1.02 [facility] GFR/1.73 sq M.predicted MDRD (S/P/Bld) [Vol rate/Area] mL/min/{1.73_m2} >=60 mL/min/1.7 3m 2 [facility] Glucose [Mass/Vol] 105 mg/dL 74-106 [facility] Potassium [Moles/Vol] 3.4 mmol/L Low 3.5-5.1 [facility] Sodium [Moles/Vol] 141 mmol/L 136-145 [facility] Urea nitrogen [Mass/Vol] 10.0 mg/dL 7.0-18.0 [facility] Urea nitrogen/Creatinine [Mass ratio] 16.7 mg/mg [facility] Laboratory - Hematology and Cell countson 08-17-2024 Immature granulocytes/100 WBC (Bld) 0.2 % 0.0-0.5 [facility] Leukocytes [#/volume] correc alfredito for nucleated erythrocytes in Blood by Automated counon 08-17-2024 WBC corrected for nucl RBC Auto (Bld) [#/Vol] Leukocytes [#/volume] corrected for nucleated erythrocytes in Blood by Automated coun 4.0-11.0 [facility] Lymphocytes Auto (Bld) [#/Vo l]on 08-17-2024 Lymphocytes (Bld) [#/Vol] Lymphocytes [#/volume] in Blood by Automated count 1.2-3.8 [facility] Lymphocytes/100 WBC Auto (Bl d)on 08-17-2024 Lymphocytes/100 WBC (Bld) Lymphocytes/100 leukocytes in Blood by Automated count 20.5-60.0 [facility] MCH Auto (RBC) [Entitic mass ]on 08-17-2024 MCH (RBC) [Entitic mass] MCH [Entitic mass] by Automated count Low 26.7-34.0 [facility] MCHC Auto (RBC) [Mass/Vol]on 08-17-2024 MCHC (RBC) [Mass/Vol] MCHC [Mass/volume] by Automated count Low 29.9-35.2 [facility] MCV Auto (RBC) [Entitic vol] on 08-17-2024 MCV (RBC) [Entitic vol] MCV [Entitic volume] by Automated count Low 81.0-99.0 [facility] Monocytes Auto (Bld) [#/Vol] on 08-17-2024 Monocytes (Bld) [#/Vol] Automated blood monocyte count 0.3-0.8 [facility] Monocytes/100 WBC Auto (Bld) on 08-17-2024 Monocytes/100 WBC (Bld) Automated monocyte % 1.7-12.0 [facility] Neutrophils Auto (Bld) [#/Vo l]on 08-17-2024 Neutrophils (Bld) [#/Vol] Neutrophils [#/volume] in Blood by Automated count 1.4-6.5 [facility] Neutrophils/100 WBC Auto (Bl d)on 08-17-2024 Neutrophils/100 WBC (Bld) Automated neutrophil % Low 43.0-75.0 [facility] No Panel Informationon 08-17 Bedside Influenza Type A Antigen Negative [facility] Comment on above: Negative for Flu A p rotein antigen. Infection due to Flu Acannot be ruled out. Flu A antigen in the sample may bebelow the detection limit of the test. Bedside Influenza Type B Antigen Negative [facility] Comment on above: Negative for Flu B p rotein antigen. Infection due to Flu Bcannot be ruled out. Flu B antigen in the sample may bebelow the detection limit of the test. Eosinophils # (Auto) 0.0 10 3/uL 0.0-0.7 [facility] Immature Granulocyte # (Auto) 0.01 10 3/uL 0.00-0.03 [facility] Platelet mean volume Auto (B ld) [Entitic vol]on 08-17-2024 Platelet mean volume (Bld) [Entitic vol] Platelet mean volume [Entitic volume] in Blood by Automated count 9.5-13.5 [facility] Platelets Auto (Bld) [#/Vol] on 08-17-2024 Platelets (Bld) [#/Vol] Platelets [#/volume] in Blood by Automated count 150-450 [facility] RBC Auto (Bld) [#/Vol]on RBC (Bld) [#/Vol] Erythrocytes [#/volu me] in Blood by Automated count 4.20-5.40 [facility] Serum or plasma anion gap de terminationon 08-17-2024 Anion gap [Moles/Vol] Serum or plasma anion gap determination [facility] POCT EKGon 07-31-2024 [facility] ACT Diatomaceous earth induc ed (Bld)on 03-13-2024 [facility] CLOT TIME LR 298 sec High 89-169 [facility] Comment on above: Performed By: #### [id number] #### [facility] ([id number]) [address] [place] [address] Basophils Auto (Bld) [#/Vol] on 12-18-2023 Basophils (Bld) [#/Vol] 0.0 10 3/uL 0.0-0.1 [facility] Basophils/100 WBC Auto (Bld) on 12-18-2023 Basophils/100 WBC (Bld) 0.7 % 0.2-2.0 [facility] Eosinophils/100 WBC Auto (Bl d)on 12-18-2023 Eosinophils/100 WBC (Bld) 1.5 % 0.9-7.0 [facility] Erythrocyte distribution wid th Auto (RBC) [Ratio]on 12-18-2023 Erythrocyte distribution width (RBC) [Ratio] 18.0 % 11.0-15.0 [facility] Estimated glomerular filtrat ion rate (GFR) non- Americanon 12-18-2023 GFR/1.73 sq M.predicted among non-blacks MDRD (S/P/Bld) [Vol rate/Area] mL/min/{1.73_m2} >=60 [facility] Globulin Calc (S) [Mass/Vol] on 12-18-2023 Globulin (S) [Mass/Vol] 3.1 g/dL [facility] Hematocrit Auto (Bld) [Volum e fraction]on 12-18-2023 Hematocrit (Bld) [Volume fraction] 27.9 % 36.0-48.0 [facility] Hemoglobin [Mass/volume] in Bloodon 12-18-2023 Hemoglobin (Bld) [Mass/Vol] 8.2 g/dL 12.0-16.0 [facility] Laboratory - Chemistry and C hemistry - challengeon 12-18-2023 Albumin [Mass/Vol] 2.8 g/dL 3.4-5.0 [facility] ALP [Catalytic activity/Vol] 67 U/L 46-116 [facility] ALT [Catalytic activity/Vol] 14 U/L 14-59 [facility] AST [Catalytic activity/Vol] 8 U/L 15-37 [facility] Bilirubin [Mass/Vol] 0.4 mg/dL 0.2-1.0 [facility] Calcium [Mass/Vol] 7.8 mg/dL 8.5-10.1 [facility] Chloride [Moles/Vol] 108 mmol/L 98-107 [facility] CO2 [Moles/Vol] 25.7 mmol/L 21.0-32.0 [facility] Creatinine [Mass/Vol] 0.60 mg/dL 0.55-1.02 [facility] GFR/1.73 sq M.predicted MDRD (S/P/Bld) [Vol rate/Area] mL/min/{1.73_m2} >=60 [facility] Glucose [Mass/Vol] 75 mg/dL 74-106 [facility] Potassium [Moles/Vol] 3.7 mmol/L 3.5-5.1 [facility] Protein [Mass/Vol] 5.9 g/dL 6.4-8.2 [facility] Sodium [Moles/Vol] 139 mmol/L 136-145 [facility] Urea nitrogen [Mass/Vol] 9.0 mg/dL 7.0-18.0 [facility] Urea nitrogen/Creatinine [Mass ratio] 15.0 mg/mg [facility] Laboratory - Hematology and Cell countson 12-18-2023 Immature granulocytes/100 WBC (Bld) 0.2 % 0.0-0.5 [facility] Leukocytes [#/volume] correc alfredito for nucleated erythrocytes in Blood by Automated counon 12-18-2023 WBC corrected for nucl RBC Auto (Bld) [#/Vol] 5.9 10 3/uL 4.0-11.0 [facility] Lymphocytes Auto (Bld) [#/Vo l]on 12-18-2023 Lymphocytes (Bld) [#/Vol] 2.4 10 3/uL 1.2-3.8 [facility] Lymphocytes/100 WBC Auto (Bl d)on 12-18-2023 Lymphocytes/100 WBC (Bld) 41.3 % 20.5-60.0 [facility] MCH Auto (RBC) [Entitic mass ]on 12-18-2023 MCH (RBC) [Entitic mass] 21.0 pg 26.7-34.0 [facility] MCHC Auto (RBC) [Mass/Vol]on 12-18-2023 MCHC (RBC) [Mass/Vol] 29.4 g/dL 29.9-35.2 [facility] MCV Auto (RBC) [Entitic vol] on 12-18-2023 MCV (RBC) [Entitic vol] 71.5 fL 81.0-99.0 [facility] Monocytes Auto (Bld) [#/Vol] on 12-18-2023 Monocytes (Bld) [#/Vol] 0.4 10 3/uL 0.3-0.8 [facility] Monocytes/100 WBC Auto (Bld) on 12-18-2023 Monocytes/100 WBC (Bld) 6.6 % 1.7-12.0 [facility] Neutrophils Auto (Bld) [#/Vo l]on 12-18-2023 Neutrophils (Bld) [#/Vol] 2.9 10 3/uL 1.4-6.5 [facility] Neutrophils/100 WBC Auto (Bl d)on 12-18-2023 Neutrophils/100 WBC (Bld) 49.7 % 43.0-75.0 [facility] No Panel Informationon 12-17 Eosinophils # (Auto) 0.1 10 3/uL 0.0-0.7 [facility] Immature Granulocyte # (Auto) 0.01 10 3/uL 0.00-0.03 [facility] Platelet mean volume Auto (B ld) [Entitic vol]on 12-18-2023 Platelet mean volume (Bld) [Entitic vol] 10.4 fL 9.5-13.5 [facility] Platelets Auto (Bld) [#/Vol] on 12-18-2023 Platelets (Bld) [#/Vol] 247 10 3/uL 150-450 [facility] RBC Auto (Bld) [#/Vol]on RBC (Bld) [#/Vol] 3.90 10 6/uL 4.20-5.40 [facility] Serum or plasma albumin/glob ulin mass ratioon 12-18-2023 Albumin/Globulin [Mass ratio] 0.9 {ratio} [facility] Serum or plasma anion gap de terminationon 12-18-2023 Anion gap [Moles/Vol] 9.0 mmol/L [facility] Activated partial thrombopla stin time (aPTT) in platelet poor plasma by coagulation aon 12-17-2023 aPTT Coag (PPP) [Time] 26.5 s 22.3-36.2 [facility] Basophils Auto (Bld) [#/Vol] on 12-17-2023 Basophils (Bld) [#/Vol] 0.0 10 3/uL 0.0-0.1 [facility] Basophils/100 WBC Auto (Bld) on 12-17-2023 Basophils/100 WBC (Bld) 0.7 % 0.2-2.0 [facility] Cholesterol in LDL Calc [Mas s/Vol]on 12-17-2023 Cholesterol in LDL [Mass/Vol] 64.4 mg/dL [facility] Comment on above: <100 mg/dl [id number] 0-129 mg/dl NEAR OR ABOVE [id number] mg/dl BORDERLINE [id number] mg/dl HIGH>190 mg/dl VERY HIGH Cholesterol in VLDL Calc [Ma ss/Vol]on 12-17-2023 Cholesterol in VLDL [Mass/Vol] 10.6 mg/dL [facility] Eosinophils/100 WBC Auto (Bl d)on 12-17-2023 Eosinophils/100 WBC (Bld) 1.5 % 0.9-7.0 [facility] Erythrocyte distribution wid th Auto (RBC) [Ratio]on 12-17-2023 Erythrocyte distribution width (RBC) [Ratio] 17.8 % 11.0-15.0 [facility] Estimated glomerular filtrat ion rate (GFR) non- Americanon 12-17-2023 GFR/1.73 sq M.predicted among non-blacks MDRD (S/P/Bld) [Vol rate/Area] mL/min/{1.73_m2} >=60 [facility] Globulin Calc (S) [Mass/Vol] on 12-17-2023 Globulin (S) [Mass/Vol] 3.6 g/dL [facility] Glucose mean value [Mass/vol ume] in Blood Estimated from glycated hemoglobinon 12-17-2023 Average glucose Estimated from glycated hemoglobin (Bld) [Mass/Vol] 114 mg/dL [facility] Hematocrit Auto (Bld) [Volum e fraction]on 12-17-2023 Hematocrit (Bld) [Volume fraction] 31.4 % 36.0-48.0 [facility] Hemoglobin [Mass/volume] in Bloodon 12-17-2023 Hemoglobin (Bld) [Mass/Vol] 9.2 g/dL 12.0-16.0 [facility] INR in Platelet poor plasma by Coagulation assayon 12-17-2023 INR Coag (PPP) [Relative time] 1.07 {INR} [facility] Comment on above: DESIRED INR:2.0-3.0 CONDITIONS NOT LISTED BELOW2.5-3.5 FOR PROSTHETIC HEART VALVE REPLACEMENT2.5-3.5 RECURRENT THROMBOSIS Iron binding capacity [Mass/ volume] in Serum or Plasmaon 12-17-2023 Iron binding capacity [Mass/Vol] 443.0 ug/dL 250.0-450. 0 [facility] Iron saturation [Mass Fracti on] in Serum or Plasmaon 12-17-2023 Iron saturation [Mass fraction] 3.6 % [facility] - Chemistry and C hemistry - challengeon 12-17-2023 Albumin [Mass/Vol] 3.3 g/dL 3.4-5.0 [facility] ALP [Catalytic activity/Vol] 79 U/L 46-116 [facility] ALT [Catalytic activity/Vol] 17 U/L 14-59 [facility] AST [Catalytic activity/Vol] 16 U/L 15-37 [facility] Bilirubin [Mass/Vol] 0.6 mg/dL 0.2-1.0 [facility] Calcium [Mass/Vol] 8.1 mg/dL 8.5-10.1 [facility] Chloride [Moles/Vol] 105 mmol/L 98-107 [facility] Cholesterol [Mass/Vol] 125 mg/dL <=200 [facility] Cholesterol in HDL [Mass/Vol] 50 mg/dL 40-60 [facility] Comment on above: > or =60 mg/dl - LOW CARDIOVASCULAR RISK<40 mg/dl - HIGH CARDIOVASCULAR RISK CO2 [Moles/Vol] 27.0 mmol/L 21.0-32.0 [facility] Cobalamin (Vitamin B12) [Mass/Vol] 209.0 pg/mL 193.0-986. 0 [facility] Creatinine [Mass/Vol] 0.70 mg/dL 0.55-1.02 [facility] Ferritin [Mass/Vol] 6.0 ng/mL 8.0-252.0 [facility] GFR/1.73 sq M.predicted MDRD (S/P/Bld) [Vol rate/Area] mL/min/{1.73_m2} >=60 [facility] Glucose [Mass/Vol] 94 mg/dL 74-106 [facility] Iron [Mass/Vol] 16.0 ug/dL 50.0-170.0 [facility] Magnesium [Mass/Vol] 2.4 mg/dL 1.8-2.4 [facility] Potassium [Moles/Vol] 3.5 mmol/L 3.5-5.1 [facility] Protein [Mass/Vol] 6.9 g/dL 6.4-8.2 [facility] Sodium [Moles/Vol] 141 mmol/L 136-145 [facility] Triglyceride [Mass/Vol] 53 mg/dL <=150 [facility] TSH Qn 1.336 m[IU]/L 0.358-3.74 0 [facility] Urea nitrogen [Mass/Vol] 10.0 mg/dL 7.0-18.0 [facility] Urea nitrogen/Creatinine [Mass ratio] 14.3 mg/mg [facility] Laboratory - Hematology and Cell countson 12-17-2023 HbA1c (Bld) [Mass fraction] 5.6 % 4.5-6.2 [facility] Comment on above: ADA RECOMMENDED LIMI T 4.0 - 6.0ADA THERAPEUTIC TARGET < 7.0ACTION SUGGESTED> 7.0 Immature granulocytes/100 WBC (Bld) 0.2 % 0.0-0.5 [facility] Leukocytes [#/volume] correc alfredito for nucleated erythrocytes in Blood by Automated counon 12-17-2023 WBC corrected for nucl RBC Auto (Bld) [#/Vol] 5.5 10 3/uL 4.0-11.0 [facility] Lymphocytes Auto (Bld) [#/Vo l]on 12-17-2023 Lymphocytes (Bld) [#/Vol] 2.5 10 3/uL 1.2-3.8 [facility] Lymphocytes/100 WBC Auto (Bl d)on 12-17-2023 Lymphocytes/100 WBC (Bld) 46.2 % 20.5-60.0 [facility] MCH Auto (RBC) [Entitic mass ]on 12-17-2023 MCH (RBC) [Entitic mass] 20.9 pg 26.7-34.0 [facility] MCHC Auto (RBC) [Mass/Vol]on 12-17-2023 MCHC (RBC) [Mass/Vol] 29.3 g/dL 29.9-35.2 [facility] MCV Auto (RBC) [Entitic vol] on 12-17-2023 MCV (RBC) [Entitic vol] 71.4 fL 81.0-99.0 [facility] Monocytes Auto (Bld) [#/Vol] on 12-17-2023 Monocytes (Bld) [#/Vol] 0.4 10 3/uL 0.3-0.8 [facility] Monocytes/100 WBC Auto (Bld) on 12-17-2023 Monocytes/100 WBC (Bld) 6.6 % 1.7-12.0 [facility] Neutrophils Auto (Bld) [#/Vo l]on 12-17-2023 Neutrophils (Bld) [#/Vol] 2.4 10 3/uL 1.4-6.5 [facility] Neutrophils/100 WBC Auto (Bl d)on 12-17-2023 Neutrophils/100 WBC (Bld) 44.8 % 43.0-75.0 [facility] No Panel Informationon 12-16 Eosinophils # (Auto) 0.1 10 3/uL 0.0-0.7 [facility] Folate 12.40 ng/mL 8.60-58.90 [facility] Immature Granulocyte # (Auto) 0.01 10 3/uL 0.00-0.03 [facility] Troponin I High Sensitivity 6.3 pg/mL 4.0-51.3 [facility] Comment on above: CUT-OFF POINTS HAVE [...] volume (Bld) [Entitic vol] 10.1 fL 9.5-13.5 [facility] Platelets Auto (Bld) [#/Vol] on 12-17-2023 Platelets (Bld) [#/Vol] 283 10 3/uL 150-450 [facility] Prothrombin time (PT)on 12-06 PT Coag (PPP) [Time] 11.3 s 9.0-11.6 [facility] RBC Auto (Bld) [#/Vol]on RBC (Bld) [#/Vol] 4.40 10 6/uL 4.20-5.40 [facility] Reticulocytes/100 RBC Auto ( Bld)on 12-17-2023 Reticulocytes/100 RBC (Bld) 0.95 % 0.60-3.10 [facility] Serum or plasma albumin/glob ulin mass ratioon 12-17-2023 Albumin/Globulin [Mass ratio] 0.9 {ratio} [facility] Serum or plasma anion gap de terminationon 12-17-2023 Anion gap [Moles/Vol] 12.5 mmol/L [facility] Serum or plasma total choles terol/high density lipoprotein (HDL) cholesterol mass vasiliy 12-17-2023 Cholesterol.total/C holesterol in HDL [Mass ratio] 2.5 {ratio} [facility] Comment on above: 3.3 - 4.4 LOW RISK4. 4 - 7.1 AVERAGE RISK7.1 - 11.0 MODERATE RISK>11.0 HIGH RISK NICOTINE METABOLITESon 08-27 Cotinine <1.0 Normal [facility] Comment on above: Result Comment: This test was developed and its performance characteristics determined by [employer] [facility]. It has not been cleared or approved by the Food and Drug Administration. Cotinine levels greater than 20.0 are consistent with the use of tobacco or tobacco cessation products. Performed By: #### N ICTBLD #### [facility] [address] [address] [address] Malcolm Gil Nicotine <1.0 Normal [facility] Comment on above: Result Comment: This test was developed and its performance characteristics determined by [employer]. It has not been cleared or approved by the Food and Drug Administration. Nicotine levels greater than 2.0 are consistent with the use of tobacco or tobacco cessation products. Performed By: #### N ICTBLD #### [facility] [address] [address] [address] Malcolm Gil GLYCOHEMOGLOBIN A1Con 2022 ADA RECOMMENDATION SEE BELOW Normal [facility] Comment on above: Result Comment: ADA RECOMMENDED LIMIT 4.0 - 6.0 ADA THERAPEUTIC TARGET < 7.0 ACTION SUGGESTED > 7.0 Performed By: #### A 1C #### [facility] [address] [place] [address] Dr. Malcolm Gil Glucose [Mass/Vol] 163 mg/dL Normal [facility] Comment on above: Performed By: #### A 1C #### [facility] [address] [address] [address] Malcolm Gil HbA1c (Bld) [Mass fraction] 7.3 % Critically high 4.5-6.[address] [facility] Comment on above: Performed By: #### A 1C #### [facility] [address] [address] [address] Malcolm Gil Glucose, Whole Bloodon 10-14 Glucose [Mass/Vol] 85 mg/dL 74 - 100 mg/dL [facility] Glucose, Whole Bloodon 10-13 Glucose [Mass/Vol] 161 mg/dL High 74 - 100 mg/dL [facility] Interpretation and review of laboratory results Abnormal [facility] Glucose [Mass/Vol] 168 mg/dL High 74 - 100 mg/dL [facility] Interpretation and review of laboratory results Abnormal [facility] Glucose [Mass/Vol] 136 mg/dL High 74 - 100 mg/dL [facility] Interpretation and review of laboratory results Abnormal [facility] Glucose [Mass/Vol] 137 mg/dL High 74 - 100 mg/dL [facility] Interpretation and review of laboratory results Abnormal [facility] Hemoglobinon 10-13-2021 Hemoglobin (Bld) [Mass/Vol] 10.1 g/dL Low 11.9-15.1 [facility] Comment on above: Performed By: #### U RTPRT #### [facility] [address] [place], [place] [id number] Test Analyst: Morro Hale MD Hemoglobin.gastroin testinal spec 1 Ql (Stl) 10.1 g/dL Low 11.9 - 15.1 g/dL [facility] Interpretation and review of laboratory results Abnormal [facility] Hemoglobin A1Con 10-13-2021 Glucose [Mass/Vol] 143 mg/dL Normal [facility] Comment on above: Result Comment: The ADA and AACC recommend providing the estimated average glucose result to permit better patient understanding of their HBA1c result. Performed By: #### U RTPRT #### [facility] [address] [place], [place] [id number] Test Analyst: Morro Hale MD HbA1c (Bld) [Mass fraction] 6.6 % High 4.0-6.0 [facility] Comment on above: Performed By: #### U RTPRT #### [facility] [address] [place], [place] [id number] Test Analyst: Morro Hale MD Hemoglobin A1con 10-13-2021 Glucose [Mass/Vol] 143 mg/dL [facility] Comment on above: The ADA and AACC rec ommend providing the estimated average glucose result to permit better patient understanding of their HBA1c result. HbA1c (Bld) [Mass fraction] 6.6 % High 4.0 - 6.0 % [facility] Interpretation and review of laboratory results Abnormal [facility] Magnesiumon 10-13-2021 Magnesium [Mass/Vol] 4.7 mg/dL Critically high 1.6-2.6 [facility] Comment on above: Performed By: #### U RTPRT #### [facility] [address] [place] [address] Test Analyst: Morro Hale MD Interpretation and review of laboratory results Abnormal [facility] Magnesium [Mass/Vol] 4.7 mg/dL Critically high 1.6 - 2.6 mg/dL [facility] Magnesium [Mass/Vol] 5.3 mg/dL Critically high 1.6-2.6 [facility] Comment on above: Performed By: #### M G #### [facility] [address] [place] [id number] Test Analyst: Morro Hale MD Interpretation and review of laboratory results Abnormal [facility] Magnesium [Mass/Vol] 5.3 mg/dL Critically high 1.6 - 2.6 mg/dL [facility] Magnesium [Mass/Vol] 4.1 mg/dL Critically high 1.6-2.6 [facility] Comment on above: Performed By: #### M G #### [facility] [address] [place] [id number] Test Analyst: Morro Hale MD APTTon 10-12-2021 aPTT Coag (Bld) [Time] 23.9 s Low 26.8-34.8 [facility] Comment on above: Result Comment: IV Heparin Therapy Range: 62.0-94.0 Performed By: #### U RTPRT #### [facility] [address] [place] [address] Dr. [place], [facility]83 Test Analyst: Morro Hale MD aPTT Coag (Bld) [Time] 23.9 s Low [facility] Comment on above: IV Heparin Therapy Range: 62.0-94.0 Interpretation and review of laboratory results Abnormal [facility] CBC with Auto Differentialon 10-12-2021 Absolute Eos # 0.11 [facility] th Absolute Immature Granulocyte 0.07 [facility] Absolute Lymph # 2.20 [facility] [place] [facility] Bas[facility] (Bld) [#/Vol] 0.04 10*3/uL [facility] Basophils/100 WBC (Bld) 0 % 0 - 2 % [facility] Eosinophils/100 WBC (Bld) 1 % 1 - 4 % [facility] Hematocrit (Bld) [Volume fraction] 34.6 % Low 36.3 - 47.1 % [facility] Hemoglobin.gastroin testinal spec 1 Ql (Stl) 11.2 g/dL Low 11.9 - 15.1 g/dL [facility] Immature granulocytes/100 WBC (Bld) 1 % High 0 [facility] Interpretation and review of laboratory results Abnormal [facility] Lymphocytes/100 WBC (Bld) 23 % Low 24 - 43 % [facility] MCH (RBC) [Entitic mass] 27.1 pg 25.2 - 33.5 pg [facility] MCHC (RBC) [Mass/Vol] 32.4 g/dL 28.4 - 34.8 g/dL [facility] MCV (RBC) [Entitic vol] 83.6 fL 82.6 - 102.9 fL [facility] Monocytes/100 WBC (Bld) 6 % 3 - 12 % [facility] NRBC Automated 0.0 0.0 per 100 WBC [facility] Platelet distribution width (Bld) [Ratio] 14.6 % High 11.8 - 14.4 % [facility] Platelet mean volume (Bld) [Entitic vol] 10.6 fL 8.1 - 13.5 fL [facility] Platelets (Bld) [#/Vol] 224 10*3/uL [facility] RBC (Bld) [#/Vol] 4.14 10*6/uL 3.95 - 5.11 m/uL [facility] Segmented neutrophils/100 WBC (Bld) 69 % High 36 - 65 % [facility] Segs Absolute 6.68 [facility] WBC (Bld) [#/Vol] 9.6 10*3/uL [facility] CBC with Diffon 10-12-2021 Abs. Basophil 0.04 k/uL Normal 0.00-0.20 [facility] Comment on above: Performed By: #### U RTPRT #### [facility] [address] [place] [address] Test Analyst: Morro Hale MD Abs.Imm.Granulocyte 0.07 k/uL Normal 0.00-0.30 [facility] Comment on above: Performed By: #### U RTPRT #### [facility] [address] [place], [place] [id number] Test Analyst: Morro Hale MD Abs.Neutrophil (Seg) 6.68 k/uL Normal 1.50-8.10 [facility] Comment on above: Performed By: #### U RTPRT #### [address] [place], [place] [id number] Test Analyst: Morro Hale MD Basophils/100 WBC (Bld) 0 % Normal 0-2 [facility] Comment on above: Performed By: #### U RTPRT #### [address] [place], [facility]83 Test Analyst: Morro Hale MD Eosinophils (Bld) [#/Vol] 0.11 10*3/uL Normal 0.00-0.44 [facility] Comment on above: Performed By: #### U RTPRT #### [address] [place], [facility]83 Test Analyst: Morro Hale MD Eosinophils/100 WBC (Bld) 1 % Normal 1-4 [facility] Comment on above: Performed By: #### U RTPRT #### [address] [place], [place] [id number] Test Analyst: Morro Hale MD Erythrocyte distribution width (RBC) [Ratio] 14.6 % High 11.8-14.4 [facility] Comment on above: Performed By: #### U RTPRT #### [address] [place], [place] [id number] Test Analyst: Morro Hale MD Hematocrit (Bld) [Volume fraction] 34.6 % Low 36.3-47.1 [facility] Comment on above: Performed By: #### U RTPRT #### [address] [place], [facility]83 Test Analyst: Mroro Hale MD Hemoglobin (Bld) [Mass/Vol] 11.2 g/dL Low 11.9-15.1 [facility] Comment on above: Performed By: #### U RTPRT #### [facility] [address] [place], [place] [id number] Test Analyst: Morro Hale MD Immature granulocytes/100 WBC (Bld) 1 % High 0 [facility] Comment on above: Performed By: #### U RTPRT #### [facility] [address] [place], [place] [id number] Test Analyst: Morro Hale MD Lymphocytes (Bld) [#/Vol] 2.20 10*3/uL Normal 1.10-3.70 [facility] Comment on above: Performed By: #### U RTPRT #### [facility] [address] [place] [address] Dr. [place], [place] [id number] Test Analyst: Morro Hale MD Lymphocytes/100 WBC (Bld) 23 % Low 24-43 [facility] Comment on above: Performed By: #### U RTPRT #### [address] [place], [place] [id number] Test Analyst: Morro Hale MD MCH (RBC) [Entitic mass] 27.1 pg Normal 25.2-33.5 [facility] Comment on above: Performed By: #### U RTPRT #### [facility] [address] [place] [address] Dr. [place], [place] [id number] Test Analyst: Morro Hale MD MCHC (RBC) [Mass/Vol] 32.4 g/dL Normal 28.4-34.8 [facility] Comment on above: Performed By: #### U RTPRT #### [address] [place] [address] Test Analyst: Morro Hale MD MCV (RBC) [Entitic vol] 83.6 fL Normal 82.6-102.9 [facility] Comment on above: Performed By: #### U RTPRT #### [facility] [address] [place], [place] [id number] Test Analyst: Morro Hale MD Monocytes (Bld) [#/Vol] 0.53 10*3/uL Normal 0.10-1.20 [facility] Comment on above: Performed By: #### U RTPRT #### [facility] [address] [place], [place] [id number] Test Analyst: Morro Hale MD Monocytes/100 WBC (Bld) 6 % Normal 3-12 [facility] Comment on above: Performed By: #### U RTPRT #### [facility] [address] [place], [place] [id number] Test Analyst: Morro Hale MD Neutrophil (Seg) 69 % High 36-65 [facility] Comment on above: Performed By: #### U RTPRT #### [facility] [address] [place], [place] [id number] Test Analyst: Morro Hale MD NRBC Automated 0.0 per 100 WBC Normal 0.0 [facility] Comment on above: Performed By: #### U RTPRT #### [address] [place] [address] Test Analyst: Morro Hale MD Platelet mean volume (Bld) [Entitic vol] 10.6 fL Normal 8.1-13.5 [facility] Comment on above: Performed By: #### U RTPRT #### [facility] [address] [place] [address] Test Analyst: Morro Hale MD Platelets (Bld) [#/Vol] 224 10*3/uL Normal 138-453 [facility] Comment on above: Performed By: #### U RTPRT #### [facility] [address] [place] [address] Test Analyst: Morro Hale MD RBC (Bld) [#/Vol] 4.14 10*6/uL Normal 3.95-5.11 [facility] Comment on above: Performed By: #### U RTPRT #### [facility] [address] [place] [address] Test Analyst: Morro Hale MD WBC (Bld) [#/Vol] 9.6 10*3/uL Normal 3.5-11.3 [facility] Comment on above: Performed By: #### U RTPRT #### [facility] [address] [place] [address] Test Analyst: Morro Hale MD Comp Metabolic Profon 2021 (cont.) Normal [facility] Comment on above: Result Comment: Aver age GFR for 30-39 years old: 107 mL/min/1.73sq m Chronic Kidney Disease: <60 mL/min/1.73sq m Kidney failure: <15 mL/min/1.73sq m eGFR calculated using average adult body mass. Additional eGFR calculator available at: http://www.[place]/multiple_crcl_2011.htm Performed By: #### U RTPRT #### [facility] [address] [place] [address] Test Analyst: Morro Hale MD Albumin [Mass/Vol] 3.3 g/dL Low 3.5-5.2 [facility] Comment on above: Performed By: #### U RTPRT #### [facility] [address] [place] [address] Test Analyst: Morro Hale MD Albumin/Glob Ratio 1.2 Normal 1.0-2.5 [facility] Comment on above: Performed By: #### U RTPRT #### [facility] [address] [place] [address] Test Analyst: Morro Hale MD Alkaline Phos 112 U/L High 35-104 [facility] Comment on above: Performed By: #### U RTPRT #### [facility] [address] [place], [place] [id number] Test Analyst: Morro Hale MD ALT [Catalytic activity/Vol] 11 U/L Normal 5-33 [facility] Comment on above: Performed By: #### U RTPRT #### [facility] [address] [place], [place] [id number] Test Analyst: Morro Hale MD Anion gap [Moles/Vol] 11 mmol/L Normal 9-17 [facility] Comment on above: Performed By: #### U RTPRT #### [facility] [address] [place], [place] [id number] Test Analyst: Morro Hale MD AST [Catalytic activity/Vol] 14 U/L Normal <32 [facility] Comment on above: Performed By: #### U RTPRT #### [facility] [address] [place], [place] [id number] Test Analyst: Morro Hale MD Bilirubin [Mass/Vol] 0.27 mg/dL Low 0.3-1.2 [facility] Comment on above: Performed By: #### U RTPRT #### [facility] [address] [place], [place] [id number] Test Analyst: Morro Hale MD BUN/CRE Ratio 19 Normal 9-20 [facility] Comment on above: Performed By: #### U RTPRT #### [facility] [address] [place], [place] [id number] Test Analyst: Morro Hale MD Calcium [Mass/Vol] 9.2 mg/dL Normal 8.6-10.4 [facility] Comment on above: Performed By: #### U RTPRT #### [facility] [address] [place], [place] [id number] Test Analyst: Morro Hale MD Chloride [Moles/Vol] 98 mmol/L Normal 98-107 [facility] Comment on above: Performed By: #### U RTPRT #### [facility] [address] [place], [place] [id number] Test Analyst: Morro Hale MD CO2 [Moles/Vol] 21 mmol/L Normal 20-31 [facility] Comment on above: Performed By: #### U RTPRT #### [facility] [address] [place], [place] [id number] Test Analyst: Morro Hale MD Creatinine [Mass/Vol] 0.58 mg/dL Normal 0.50-0.90 [facility] Comment on above: Performed By: #### U RTPRT #### [facility] [address] [place], [place] [id number] Test Analyst: Morro Hale MD GFR, Amer >60 Normal >60 [facility] Comment on above: Performed By: #### U RTPRT #### [facility] [address] [place], [place] [id number] Test Analyst: Morro Hale MD GFR,non Amer >60 Normal >60 [facility] Comment on above: Performed By: #### U RTPRT #### [facility] [address] [place], [place] [id number] Test Analyst: Morro Hale MD Glucose [Mass/Vol] 120 mg/dL High 70-99 [facility] Comment on above: Performed By: #### U RTPRT #### [facility] [address] [place], [place] [id number] Test Analyst: Morro Hale MD Potassium [Moles/Vol] 3.8 mmol/L Normal 3.7-5.3 [facility] Comment on above: Performed By: #### U RTPRT #### [facility] [address] [place] [address] Test Analyst: Morro Hale MD Protein [Mass/Vol] 6.1 g/dL Low 6.4-8.3 [facility] Comment on above: Performed By: #### U RTPRT #### [facility] [address] [place] [address] [place] [address] Test Analyst: Morro Hale MD Sodium [Moles/Vol] 130 mmol/L Low 135-144 [facility] Comment on above: Performed By: #### U RTPRT #### [address] [place] [address] Test Analyst: Morro Hale MD Staging: Normal [facility] Comment on above: Result Comment: Stag e 1: Some kidney damage normal GFR Stage 2: Mild kidney damage GFR 60-89 Stage 3: Moderate kidney damage GFR 30-59 Stage 4: Severe kidney damage GFR 15-29 Stage 5: Severe kidney damage GFR <15 ESRD - chronic treatment by dialysis or transplant Performed By: #### U RTPRT #### [address] [place] [address] Test Analyst: Morro Hale MD Urea nitrogen [Mass/Vol] 11 mg/dL Normal 6-20 [facility] Comment on above: Performed By: #### U RTPRT #### [facility] [address] [place] [address] [place] [address] Test Analyst: Morro Hale MD Comprehensive Metabolic Pane argelia 10-12-2021 Albumin [Mass/Vol] 3.3 g/dL Low 3.5 - 5.2 g/dL [facility] Albumin/Globulin [Mass ratio] 1.2 {ratio} [facility] ALP (Bld) [Catalytic activity/Vol] 112 U/L High 35 - 104 U/L [facility] ALT [Catalytic activity/Vol] 11 U/L 5 - 33 U/L [facility] Anion gap [Moles/Vol] 11 mmol/L 9 - 17 mmol/L [facility] AST [Catalytic activity/Vol] 14 U/L <32 [facility] Bilirubin [Mass/Vol] 0.27 mg/dL Low 0.3 - 1.2 mg/dL [facility] Calcium [Mass/Vol] 9.2 mg/dL 8.6 - 10. 4 mg/dL [facility] Chloride [Moles/Vol] 98 mmol/L 98 - 107 mmol/L [facility] CO2 [Moles/Vol] 21 mmol/L 20 - 31 mmol/L [facility] Creatinine [Mass/Vol] 0.58 mg/dL 0.50 - 0.90 mg/dL [facility] Free PSA/Total PSA [Mass fraction] 6.1 g/dL Low 6.4 - 8.3 g/dL [facility] GFR >60 >60 mL/min [facility] GFR Non- >60 >60 mL/min [facility] Glucose [Mass/Vol] 120 mg/dL High 70 - 99 mg/dL [facility] Interpretation and review of laboratory results Abnormal [facility] Potassium [Moles/Vol] 3.8 mmol/L 3.7 - 5.3 mmol/L [facility] Sodium [Moles/Vol] 130 mmol/L Low 135 - 144 mmol/L [facility] Urea nitrogen (BldV) [Mass/Vol] 11 mg/dL 6 - 20 mg/dL [facility] Urea nitrogen/Creatinine (Bld) [Mass ratio] 19 [facility] Drug Scr, Abuse, Uron 2021 Amphetamine(s),Ur Negative Normal NEG [facility] Comment on above: Performed By: #### D AU #### [facility] [address] [place] [address] Test Analyst: Morro Hale MD Barbiturate(s),Ur Negative Normal NEG [facility] Comment on above: Performed By: #### D AU #### [facility] [address] [place] [address] Test Analyst: Morro Hale MD Benzodiazepine(s) Negative Normal NEG [facility] Comment on above: Performed By: #### D AU #### [facility] [address] [place] [address] Test Analyst: Morro Hale MD Buprenorphrine, Ur Negative Normal [facility] Comment on above: Performed By: #### D AU #### [facility] [address] [place] [address] Test Analyst: Morro Hale MD Cannabinoid(s),Ur Negative Normal NEG [facility] Comment on above: Performed By: #### D AU #### [facility] [address] [place], [place] [id number] Test Analyst: Morro Hale MD Cocaine Metabolite Negative Normal [facility] Comment on above: Performed By: #### D AU #### [facility] [address] [place], [place] [id number] Test Analyst: Morro Hale MD Methadone Ql (U) Negative Normal [facility] Comment on above: Performed By: #### D AU #### [facility] [address] [place], [place] [address]0183 Test Analyst: Morro Hale MD Methamphetamine, Ur Negative Normal [facility] Comment on above: Performed By: #### D AU #### [facility] [address] [place], [place] [address]79[address]3 Test Analyst: Morro Hale MD Opiate(s), Ur Negative Normal [facility] Comment on above: Performed By: #### D AU #### [facility] [address] [place], [place] 9[address]5083 Test Analyst: Morro Hale MD Oxycodone, Urine Negative Normal NEG [facility] Comment on above: Performed By: #### D AU #### [facility] [address] [place], [place] [id number] Test Analyst: Morro Hale MD Phencyclidine, Ur Negative Normal NEG [facility] Comment on above: Performed By: #### D AU #### [facility] [address] [place] [address] Test Analyst: Morro Hale MD Propoxyphene,Urine Negative Normal NEG [facility] Comment on above: Performed By: #### D AU #### [facility] [address] [place], [place] [id number] Test Analyst: Morro Hale MD Tricyclic antidepressants Screen Ql (U) Negative Normal NEG [facility] Comment on above: Result Comment: Drug screen results are to be used for medical purposes only. All positive results are unconfirmed. Testing for employment or legal uses should be sent to a reference laboratory for confirmation. Performed By: #### D AU #### [facility] [address] [place] [address] [place] [address] Test Analyst: Morro Hale MD Fibrinogenon 10-12-2021 Fibrinogen 572 mg/dL High 179-518 [facility] Comment on above: Performed By: #### U RTPRT #### [facility] [address] [place] [address] [place] [address] Test Analyst: Morro Hale MD Fibrinogen 572 mg/dL High 179 - 518 mg/dL [facility] Interpretation and review of laboratory results Abnormal [facility] Glucose, Whole Bloodon 10-12 Glucose [Mass/Vol] 229 mg/dL High 74 - 100 mg/dL [facility] Interpretation and review of laboratory results Abnormal [facility] Glucose [Mass/Vol] 216 mg/dL High 74 - 100 mg/dL [facility] Interpretation and review of laboratory results Abnormal [facility] Glucose [Mass/Vol] 129 mg/dL High 74 - 100 mg/dL [facility] Interpretation and review of laboratory results Abnormal [facility] Laboratory - Chemistry and C hemistry - challengeon 10-12-2021 GFR/1.73 sq M.predicted MDRD (S/P/Bld) [Vol rate/Area] [facility] Comment on above: Average GFR for 30-3 9 years old: 107 mL/min/1.73sq m Chronic Kidney Disease: <60 mL/min/1.73sq m Kidney failure: <15 mL/min/1.73sq m eGFR calculated using average adult body mass. Additional eGFR calculator available at: http://www.[place]/multiple_crcl_2012.htm Stage 1: Some kidney damage normal GFR Stage 2: Mild kidney damage GFR 60-89 Stage 3: Moderate kidney damage GFR 30-59 Stage 4: Severe kidney damage GFR 15-29 Stage 5: Severe kidney damage GFR <15 ESRD - chronic treatment by dialysis or transplant Lactate Dehydrogenaseon LDH [Catalytic activity/Vol] 194 U/L Normal 135-214 [facility] Comment on above: Performed By: #### U RTPRT #### [facility] [address] [place] [address] [place] [address] Test Analyst: Morro Hale MD LD 194 U/L 135 - 214 U/L [facility] Magnesiumon 10-12-2021 Interpretation and review of laboratory results Abnormal [facility] Magnesium [Mass/Vol] 4.1 mg/dL Critically high 1.6 - 2.6 mg/dL [facility] Magnesium [Mass/Vol] 4.0 mg/dL Critically high 1.6-2.6 [facility] Comment on above: Performed By: #### M G #### [address] [place] [address] Test Analyst: Morro Hale MD Interpretation and review of laboratory results Abnormal [facility] Magnesium [Mass/Vol] 4.0 mg/dL Critically high 1.6 - 2.6 mg/dL [facility] No Panel Informationon 10-12 [facility] OPERATIVE REPORTon OPERATIVE REPORT [address] [address] OPERATIVE REPORT PATIENT NAME: SOLANGE LUCAS : 1985 MED REC NO: [id number] ROOM: 0203 ACCOUNT NO: [id number] ADMIT DATE: 10/12/2021 PROVIDER: Kang Panda MD DATE OF PROCEDURE: 10/12/2021 ADDENDUM LINK KNITTING MACHINE OPERATOR: ELINOR Chambers MD [email or web address] Doc#: [id number] Normal [facility] OPERATIVE REPORT [address] [address] OPERATIVE REPORT PATIENT NAME: SOLANGE LUCAS : 1985 MED REC NO: [id number] ROOM: 0203 ACCOUNT NO: [id number] ADMIT DATE: 10/12/2021 PROVIDER: Kang Panda MD [...] was extended in a semilunar fashion with small kick press operator's fingers. head was elevated. Fundal [...] and cut. handed off to nursing and transit mixer operator who attended the delivery. Cord blood [...] be correct. KANG PANDA MD [id number] Doc#: [id number] CC: Normal [facility] PTon 10-12-2021 INR Coag (PPP) [Relative time] 1.0 {INR} Normal [facility] Comment on above: Result Comment: Non-therapeutic Range: INR = 0.9-1.2 Therapeutic Range: Moderate Anticoagulant Intensity: INR = 2.0-3.0 High Anticoagulant Intensity: INR = 2.5-3.5 Performed By: #### U RTPRT #### [facility] [address] [place] [address] Test Analyst: Morro Hale MD PT Coag (PPP) [Time] 13.1 s Normal 11.5-14.2 [facility] Comment on above: Performed By: #### U RTPRT #### [facility] [address] [place] [address] Test Analyst: Morro Hale MD Protein / Creatinine Ratio, Urineon 10-12-2021 Creatinine, Ur 51.4 mg/dL 28.0 - 217.0 mg/dL [facility] Protein (U) [Mass/Vol] 5 mg/dL [facility] Comment on above: No normal range esta blished. Urine Total Protein Creatinine Ratio 0.10 [facility] Protein,Tot,[place] Uron 2021 Creatinine [Mass/Vol] 51.4 mg/dL Normal 28.0-217.0 [facility] Comment on above: Performed By: #### U RTPRT #### [facility] [address] [place] [address] Test Analyst: Morro Hale MD Tot Prot. Conc. 5 mg/dL Normal [facility] Comment on above: Result Comment: No n ormal range established. Performed By: #### U RTPRT #### [facility] [address] [place], [place] [id number] Test Analyst: Morro Hale MD TP/Cre Ratio 0.10 Normal 0.00-0.20 [facility] Comment on above: Performed By: #### U RTPRT #### [facility] [address] [place] [address] Test Analyst: Morro Hale MD Protime-INRon 10-12-2021 INR Coag (Bld) [Relative time] 1.0 {INR} [facility] Comment on above: Non-therapeutic Range: INR = 0.9-1.2 Therapeutic Range: Moderate Anticoagulant Intensity: INR = 2.0-3.0 High Anticoagulant Intensity: INR = 2.5-3.5 PT Coag (PPP) [Time] 13.1 s [facility] Surgical Pathologyon 022 Surgical Pathology (NOTE) -- Diagnosis -- A. LEFT FALLOPIAN TUBE, SALPINGECTOMY: -NO PATHOLOGIC DIAGNOSIS B. RIGHT FALLOPIAN TUBE, SALPINGECTOMY: -NO PATHOLOGIC DIAGNOSIS C. THIRD TRIMESTER TYPE PLACENTA (675 G) DEMONSTRATING: -TWO-VESSEL HYPER SPIRALED UMBILICAL CORD -UNREMARKABLE PLACENTAL MEMBRANES -THIRD TRIMESTER TYPE PLACENTAL DISC DEMONSTRATING NO SIGNIFICANT HISTOPATHOLOGIC FEATURES Murphy Valle D.O. Electronically Signed Out [facility]10/16/2021 Clinical Information Operative Findings: L TUBE; [...] SURGICAL PATHOLOGY CONSULTATION Patient Name: SOLANGE LUCAS [facility] Rec: [id number] Path Number: [id number] [facility] ANATOMIC PATHOLOGY [address] [place] [address]. [place], [place] [address] [facility] Comment on above: Performed By: #### M G #### [address] [place] [address] Test Analyst: Morro Hale MD TYPE AND SCREENon 10-12-2021 ABO/Rh Positive [facility] Arm Band Number [id number] [facility] Expiration Date 10/15/2021,2350 [facility] Type + Screenon 10-12-2021 Type + Screen Sample Expiration 10/15/2021,1045 Arm Band Number [id number] ABO/Rh(D) O POSITIVE Antibody Screen NEGATIVE [facility] Comment on above: Performed By: #### T YS #### [address] [place] [id number] Test Analyst: Morro Hale MD Uric Acidon 10-12-2021 Urate [Mass/Vol] 4.4 mg/dL Normal 2.4-5.7 [facility] Comment on above: Performed By: #### U RTPRT #### [facility] [address] [place] [address] [place] [address] Test Analyst: Morro Hale MD Urate [Mass/Vol] 4.4 mg/dL 2.4 - 5.7 mg/dL [facility] Urinalysison 10-12-2021 Bilirubin Urine Negative NEGATIVE [facility] lt Color, UA Yellow Yellow [facility] Glucose, Ur Negative NEGATIVE [facility] Ketones Ql (U) Negative NEGATIVE [facility] Leukocyte esterase Test strip Ql (U) Negative NEGATIVE [facility] Nitrite, Urine Negative NEGATIVE [facility] pH, UA 6.0 [facility] Protein, UA Negative NEGATIVE [facility] Specific [place], UA 1.015 [facility] Turbidity UA Clear Clear [facility] Urine Hgb Negative NEGATIVE [facility] Urobilinogen, Urine Normal Normal [facility] Urinalysis, Routineon 2021 Bilirubin, SemiQt,Ur Negative Normal NEG [facility] Comment on above: Performed By: #### M G #### [address] [place], [place] [id number] Test Analyst: Morro Hale MD Blood, Urine Negative Normal NEG [facility] Comment on above: Performed By: #### M G #### [facility] [address] [place] [address] [place] [address] Test Analyst: Morro Hale MD Clarity (U) Clear Normal CLEAR [facility] Comment on above: Performed By: #### M G #### [address] [place] [address] Test Analyst: Morro Hale MD Color (U) Yellow Normal YEL [facility] Comment on above: Performed By: #### M G #### [facility] [address] [place], [place] [id number] Test Analyst: Morro Hale MD Glucose Ql (U) Negative Normal NEG [facility] in Hospital Comment on above: Performed By: #### M G #### [facility] [address] [place] [address] Test Analyst: Morro Hale MD Ketones Ql (U) Negative Normal NEG [facility] Comment on above: Performed By: #### M G #### [facility] [address] [place] [address] Test Analyst: Morro Hale MD Leukocyte esterase Test strip Ql (U) Negative Normal NEG [facility] Comment on above: Performed By: #### M G #### [facility] [address] [place] [address] [place] [address] Test Analyst: Morro Hale MD Nitrite,Ur Negative Normal NEG [facility] Comment on above: Performed By: #### M G #### [facility] [address] [place] [address] [place] [address] Test Analyst: Morro Hale MD PH,Ur 6.0 Normal 5.0-9.0 [facility] Comment on above: Performed By: #### M G #### [facility] [address] [place] [address] [place] [address] Test Analyst: Morro Hale MD Protein Ql (U) Negative Normal NEG [facility] Comment on above: Performed By: #### M G #### [facility] [address] [place] [address] Dr. [place], [place] [id number] Test Analyst: Morro Hale MD Spec. [place],Ur 1.015 Normal 1.010-1.02 0 [facility] Comment on above: Performed By: #### M G #### [facility] [address] [place], [place] [id number] Test Analyst: Morro Hale MD Urobilinogen,Ur Normal Normal NORM [facility] Comment on above: Performed By: #### M G #### [facility] [address] [place] [address] Test Analyst: Morro Hale MD Urine Drug Screenon 10-13-19 22 Amphetamine Screen, Ur Negative NEGATIVE [facility] Barbiturate Screen, Ur Negative NEGATIVE [facility] Benzodiazepine Screen, Urine Negative NEGATIVE [facility] Buprenorphine Urine Negative NEGATIVE [facility] Cannabinoid Scrn, Ur Negative NEGATIVE [facility] Cocaine Metabolite, Urine Negative NEGATIVE [facility] Methadone Screen, Urine Negative NEGATIVE [facility] Methamphetamine, Urine Negative NEGATIVE [facility] Opiates, Urine Negative NEGATIVE [facility] th Oxycodone Screen, Ur Negative NEGATIVE [facility] Phencyclidine, Urine Negative NEGATIVE [facility] Propoxyphene, Urine Negative NEGATIVE [facility] Tricyclic Antidepressants, Urine Negative NEGATIVE [facility] Comment on above: Drug screen results are to be used for medical purposes only. All positive results are unconfirmed. Testing for employment or legal uses should be sent to a reference laboratory for confirmation. [employer] GBS, External Resulton 09-26 GBS, External Result [facility] Work Phone: Verified with Jacqueline Manuel RN [employer] Work Phone: [employer] Work Phone: US Biophysical Profileon US Biophysical Profile FINDINGS: Breathing Movements2 Gross Body Movements 2 Tone2 Qualitative amniotic fluid volume2 A single, viable intrauterine is present. Heart rate 128 bpm. Cervix is closed 4.0 cm. Cephalic presentation, posterior fundal placenta, Grade 2. IMPRESSION: Posterior fundal placenta Grade 2 and normal biophysical profile. Report reported and signed by Ruben Howell on 09/26/2021 1028 Normal [facility] [employer] US OB Limitedon 09-26-2021 US OB Limited FINDINGS: Comparsion made with prior examination of September 18, 2021. Single viable intrauterine , cephalic presentation, normal cardiac activity (145 bpm) and activity. Posterior fundal Grade 2 placenta. EBN 18.0 cm, prior measurement BEN, 20.0 cm, one week earlier. Closed cervix, 3.8 cm length. IMPRESSION: 1. Single viable intrauterine , cephalic presentation. 2. Closed cervix. 3. BEN 18.0 cm, prior measurement BEN 20.0 cm, one week earlier. Report reported and signed by Ruben Howell on 09/26/2021 0933 Normal [facility] [employer] US OB Limitedon 09-18-2021 US OB Limited [...] by Ruben Howell on 09/19/2021 0823 Normal [facility] [employer] CBC with Auto Differentialon 09-16-2021 Absolute Eos # 0.12 [facility] th Absolute Immature Granulocyte 0.10 [facility] Absolute Lymph # 2.44 [facility] alth Absolute [place] # 0.62 [facility] lt Basophils (Bld) [#/Vol] 0.04 10*3/uL [facility] Basophils/100 WBC (Bld) 0 % 0 - 2 % [facility] Eosinophils/100 WBC (Bld) 1 % 1 - 4 % [facility] Hematocrit (Bld) [Volume fraction] 35.0 % Low 36.3 - 47.1 % [facility] Hemoglobin.gastroin testinal spec 1 Ql (Stl) 11.2 g/dL Low 11.9 - 15.1 g/dL [facility] Immature granulocytes/100 WBC (Bld) 1 % High 0 [facility] Interpretation and review of laboratory results Abnormal [facility] Lymphocytes/100 WBC (Bld) 21 % Low 24 - 43 % [facility] MCH (RBC) [Entitic mass] 27.5 pg 25.2 - 33.5 pg [facility] MCHC (RBC) [Mass/Vol] 32.0 g/dL 28.4 - 34.8 g/dL [facility] MCV (RBC) [Entitic vol] 86.0 fL 82.6 - 102.9 fL [facility] Monocytes/100 WBC (Bld) 5 % 3 - 12 % [facility] NRBC Automated 0.0 0.0 per 100 WBC [facility] Platelet distribution width (Bld) [Ratio] 14.2 % 11.8 - 14.4 % [facility] Platelet mean volume (Bld) [Entitic vol] 9.6 fL 8.1 - 13.5 fL [facility] Platelets (Bld) [#/Vol] 210 10*3/uL [facility] RBC (Bld) [#/Vol] 4.07 10*6/uL 3.95 - 5.11 m/uL [facility] Segmented neutrophils/100 WBC (Bld) 72 % High 36 - 65 % [facility] Segs Absolute 8.37 [facility]) [#/Vol] 11.7 10*3/uL High [facility] CBC with Diffon 09-16-2021 Abs. Basophil 0.04 k/uL Normal 0.00-0.20 [facility] Comment on above: Performed By: #### Elliot Aguirre CP, URI, CDP #### [facility] [address] [place] [address] Dr. [place], [facility]83 Test Analyst: Morro Hale MD Abs.Imm.Granulocyte 0.10 k/uL Normal 0.00-0.30 [facility] Comment on above: Performed By: #### Elliot Aguirre CP, URI, CDP #### [address] [place], [facility]83 Test Analyst: Morro Hale MD Abs.Neutrophil (Seg) 8.37 k/uL High 1.50-8.10 [facility] Comment on above: Performed By: #### Elliot Aguirre CP, URI, CDP #### [facility] [address] [place], [facility]83 Test Analyst: Morro Hale MD Basophils/100 WBC (Bld) 0 % Normal 0-2 [facility] Comment on above: Performed By: #### Elliot Aguirre CP URI, CDP #### [facility] [address] [place], [facility]83 Test Analyst: Morro Hale MD Eosinophils (Bld) [#/Vol] 0.12 10*3/uL Normal 0.00-0.44 [facility] Comment on above: Performed By: #### L Carla, CP, URI, CDP #### [facility] [address] [place], [place] [id number] Test Analyst: Morro Hale MD Eosinophils/100 WBC (Bld) 1 % Normal 1-4 [facility] Comment on above: Performed By: #### L D, CP, URI, CDP #### [address] [place] [address] Test Analyst: Morro Hale MD Erythrocyte distribution width (RBC) [Ratio] 14.2 % Normal 11.8-14.4 [facility] Comment on above: Performed By: #### L Carla, CP, URI, CDP #### [address] [place], [place] [id number] Test Analyst: Morro Hale MD Hematocrit (Bld) [Volume fraction] 35.0 % Low 36.3-47.1 [facility] Comment on above: Performed By: #### L Carla, CP, URI, CDP #### [address] [place], [place] [id number] Test Analyst: Morro Hale MD Hemoglobin (Bld) [Mass/Vol] 11.2 g/dL Low 11.9-15.1 [facility] Comment on above: Performed By: #### L D, CP, URI, CDP #### [address] [place], [place] [id number] Test Analyst: Morro Hale MD Immature granulocytes/100 WBC (Bld) 1 % High 0 [facility] Comment on above: Performed By: #### L D, CP, URI, CDP #### [address] [place], [place] [id number] Test Analyst: Morro Hale MD Lymphocytes (Bld) [#/Vol] 2.44 10*3/uL Normal 1.10-3.70 [facility] Comment on above: Performed By: #### Elliot Aguirre CP, URI, CDP #### [facility] [address] [place], [place] [id number] Test Analyst: Morro Hale MD Lymphocytes/100 WBC (Bld) 21 % Low 24-43 [facility] Comment on above: Performed By: #### Elliot Aguirre, YUMIKO, URI, CDP #### [facility] [address] [place], [place] [id number] Test Analyst: Morro Hale MD MCH (RBC) [Entitic mass] 27.5 pg Normal 25.2-33.5 [facility] Comment on above: Performed By: #### Elliot Aguirre CP, URI, CDP #### [address] [place], [place] [id number] Test Analyst: Morro Hale MD MCHC (RBC) [Mass/Vol] 32.0 g/dL Normal 28.4-34.8 [facility] Comment on above: Performed By: #### Elliot Aguirre CP, URI, CDP #### [address] [place], [place] [id number] Test Analyst: Morro Hale MD MCV (RBC) [Entitic vol] 86.0 fL Normal 82.6-102.9 [facility] Comment on above: Performed By: #### Elliot Aguirre CP, URI, CDP #### [address] [place], [place] [id number] Test Analyst: Morro Hale MD Monocytes (Bld) [#/Vol] 0.62 10*3/uL Normal 0.10-1.20 [facility] Comment on above: Performed By: #### Elliot Aguirre CP, URI, CDP #### [address] [place], [place] [id number] Test Analyst: Morro Hale MD Monocytes/100 WBC (Bld) 5 % Normal 3-12 [facility] Comment on above: Performed By: #### L D, CP, URI, CDP #### [facility] [address] [place] [address] Test Analyst: Morro Hale MD Neutrophil (Seg) 72 % High 36-65 [facility] Comment on above: Performed By: #### L D, CP, URI, CDP #### [facility] [address] [place], [place] 6454983 Test Analyst: Morro Hale MD NRBC Automated 0.0 per 100 WBC Normal 0.0 [facility] Comment on above: Performed By: #### L D, CP, URI, CDP #### [address] [place], [place] [id number] Test Analyst: Morro Hale MD Platelet mean volume (Bld) [Entitic vol] 9.6 fL Normal 8.1-13.5 [facility] Comment on above: Performed By: #### L Crala, CP, URI, CDP #### [address] [place], [place] [id number] Test Analyst: Morro Hale MD Platelets (Bld) [#/Vol] 210 10*3/uL Normal 138-453 [facility] Comment on above: Performed By: #### L D, CP, URI, CDP #### [address] [place], [place] 5226883 Test Analyst: Morro Hale MD RBC (Bld) [#/Vol] 4.07 10*6/uL Normal 3.95-5.11 [facility] Comment on above: Performed By: #### L D, CP, URI, CDP #### [address] [place] [address] Test Analyst: Morro Hale MD WBC (Bld) [#/Vol] 11.7 10*3/uL High 3.5-11.3 [facility] Comment on above: Performed By: #### Elliot Aguirre CP, URI, CDP #### [facility] [address] [place] [address] Test Analyst: Morro Hale MD Comp Metabolic Profon 2021 (cont.) Normal [facility] Comment on above: Result Comment: Aver age GFR for 30-39 years old: 107 mL/min/1.73sq m Chronic Kidney Disease: <60 mL/min/1.73sq m Kidney failure: <15 mL/min/1.73sq m eGFR calculated using average adult body mass. Additional eGFR calculator available at: http://www.[place]/multiple_crcl_2011.htm Performed By: #### Elliot Aguirre CP URI, CDP #### [address] [place] [address] Test Analyst: Morro Hale MD Albumin [Mass/Vol] 3.4 g/dL Low 3.5-5.2 [facility] Comment on above: Performed By: #### Elliot Aguirre CP, URI, CDP #### [address] [place] [address] Test Analyst: Morro Hale MD Albumin/Glob Ratio 1.2 Normal 1.0-2.5 [facility] Comment on above: Performed By: #### Elliot Aguirre CP, URI, CDP #### [facility] [address] [place] [address] Test Analyst: Morro Hale MD Alkaline Phos 98 U/L Normal 35-104 [facility] Comment on above: Performed By: #### Elliot Aguirre, YUMIKO, URI, CDP #### [facility] [address] [place] [address] Test Analyst: Morro Hale MD ALT [Catalytic activity/Vol] 10 U/L Normal 5-33 [facility] Comment on above: Performed By: #### L Carla, CP, URI, CDP #### [facility] [address] [place] [address] Dr. [place], [place] [id number] Test Analyst: Morro Hale MD Anion gap [Moles/Vol] 8 mmol/L Low 9-17 [facility] Comment on above: Performed By: #### L D, CP, URI, CDP #### [facility] [address] [place] [address] Dr. [place], [place] [id number] Test Analyst: Morro Hale MD AST [Catalytic activity/Vol] 13 U/L Normal <32 [facility] Comment on above: Performed By: #### L Carla, CP, URI, CDP #### [facility] [address] [place] [address] Dr. [place], [place] [id number] Test Analyst: Morro Hale MD Bilirubin [Mass/Vol] 0.17 mg/dL Low 0.3-1.2 [facility] Comment on above: Performed By: #### L Carla, YUMIKO, URI, CDP #### [address] [place], [place] [address]608883 Test Analyst: Morro Hale MD BUN/CRE Ratio 21 High 9-20 [facility] Comment on above: Performed By: #### L Carla, CP, URI, CDP #### [facility] [address] [place] [address] Dr. [place], [place] 9478783 Test Analyst: Morro Hale MD Calcium [Mass/Vol] 9.1 mg/dL Normal 8.6-10.4 [facility] Comment on above: Performed By: #### L D, CP, URI, CDP #### [facility] [address] [place] [address] Dr. [place], [place] [id number] Test Analyst: Morro Hale MD Chloride [Moles/Vol] 103 mmol/L Normal 98-107 [facility] Comment on above: Performed By: #### L D, CP, URI, CDP #### [facility] [address] [place] [address] Test Analyst: Morro Hale MD CO2 [Moles/Vol] 24 mmol/L Normal 20-31 [facility] Comment on above: Performed By: #### L D, CP, URI, CDP #### [facility] [address] [place], [place] [id number] Test Analyst: Morro Hale MD Creatinine [Mass/Vol] 0.48 mg/dL Low 0.50-0.90 [facility] Comment on above: Performed By: #### L D, CP, URI, CDP #### [facility] [address] [place] [address] [place] [address] Test Analyst: Morro Hale MD GFR, Amer >60 Normal >60 [facility] Comment on above: Performed By: #### L D, CP, URI, CDP #### [facility] [address] [place] [address] Dr. [place], [place] [id number] Test Analyst: Morro Hale MD GFR,non Amer >60 Normal >60 [facility] Comment on above: Performed By: #### L D, CP, URI, CDP #### [facility] [address] [place] [address] Dr. [place], [place] [id number] Test Analyst: Morro Hale MD Glucose [Mass/Vol] 162 mg/dL High 70-99 [facility] Comment on above: Performed By: #### L D, CP, URI, CDP #### [facility] [address] [place] [address] [place] [address] Test Analyst: Morro Hale MD Potassium [Moles/Vol] 3.9 mmol/L Normal 3.7-5.3 [facility] Comment on above: Performed By: #### L D, CP, URI, CDP #### [facility] [address] [place] [address] Test Analyst: Morro Hale MD Protein [Mass/Vol] 6.2 g/dL Low 6.4-8.3 [facility] Comment on above: Performed By: #### L Carla, CP, URI, CDP #### [facility] [address] [place] [address] [place] [address] Test Analyst: Morro Hale MD Sodium [Moles/Vol] 135 mmol/L Normal 135-144 [facility] Comment on above: Performed By: #### L Carla, YUMIKO, URI, CDP #### [address] [place] [address] Test Analyst: Morro Hale MD Staging: Normal [facility] Comment on above: Result Comment: Stag e 1: Some kidney damage normal GFR Stage 2: Mild kidney damage GFR 60-89 Stage 3: Moderate kidney damage GFR 30-59 Stage 4: Severe kidney damage GFR 15-29 Stage 5: Severe kidney damage GFR <15 ESRD - chronic treatment by dialysis or transplant Performed By: #### L Carla, YUMIKO, URI, CDP #### [address] [place] [address] Test Analyst: Morro Hale MD Urea nitrogen [Mass/Vol] 10 mg/dL Normal 6-20 [facility] Comment on above: Performed By: #### L Carla, CP, URI, CDP #### [address] [place] [address] Test Analyst: Morro Hale MD Comprehensive Metabolic Pane [facility] 09-16-2021 Albumin [Mass/Vol] 3.4 g/dL Low 3.5 - 5.2 g/dL [facility] Albumin/Globulin [Mass ratio] 1.2 {ratio} [facility] ALP (Bld) [Catalytic activity/Vol] 98 U/L 35 - 104 U/L [facility] ALT [Catalytic activity/Vol] 10 U/L 5 - 33 U/L [facility] Anion gap [Moles/Vol] 8 mmol/L Low 9 - 17 mmol/L [facility] AST [Catalytic activity/Vol] 13 U/L <32 [facility] Bilirubin [Mass/Vol] 0.17 mg/dL Low 0.3 - 1.2 mg/dL [facility] Calcium [Mass/Vol] 9.1 mg/dL 8.6 - 10. 4 mg/dL [facility] Chloride [Moles/Vol] 103 mmol/L 98 - 107 mmol/L [facility] CO2 [Moles/Vol] 24 mmol/L 20 - 31 mmol/L [facility] Creatinine [Mass/Vol] 0.48 mg/dL Low 0.50 - 0.90 mg/dL [facility] Free PSA/Total PSA [Mass fraction] 6.2 g/dL Low 6.4 - 8.3 g/dL [facility] GFR >60 >60 mL/min [facility] GFR Non- >60 >60 mL/min [facility] Glucose [Mass/Vol] 162 mg/dL High 70 - 99 mg/dL [facility] Interpretation and review of laboratory results Abnormal [facility] Potassium [Moles/Vol] 3.9 mmol/L 3.7 - 5.3 mmol/L [facility] Sodium [Moles/Vol] 135 mmol/L 135 - 144 mmol/L [facility] Urea nitrogen (BldV) [Mass/Vol] 10 mg/dL 6 - 20 mg/dL [facility] Urea nitrogen/Creatinine (Bld) [Mass ratio] 21 High [facility] Laboratory - Chemistry and C hemistry - challengeon 09-16-2021 GFR/1.73 sq M.predicted MDRD (S/P/Bld) [Vol rate/Area] [facility] Comment on above: Average GFR for 30-3 9 years old: 107 mL/min/1.73sq m Chronic Kidney Disease: <60 mL/min/1.73sq m Kidney failure: <15 mL/min/1.73sq m eGFR calculated using average adult body mass. Additional eGFR calculator available at: http://www.[employer]/multiple_crcl_2012.htm Stage 1: Some kidney damage normal GFR Stage 2: Mild kidney damage GFR 60-89 Stage 3: Moderate kidney damage GFR 30-59 Stage 4: Severe kidney damage GFR 15-29 Stage 5: Severe kidney damage GFR <15 ESRD - chronic treatment by dialysis or transplant Lactate Dehydrogenaseon 09-05 LDH [Catalytic activity/Vol] 174 U/L Normal 135-214 [facility] Comment on above: Performed By: #### L D, CP, URI, CDP #### [facility] [address] [place] [address] Test Analyst: Morro Hale MD LD 174 U/L 135 - 214 U/L [facility] No Panel Informationon 09-16 [facility] Protein / Creatinine Ratio, Urineon 09-16-2021 Creatinine, Ur 93.8 mg/dL 28.0 - 217.0 mg/dL [facility] Protein (U) [Mass/Vol] 7 mg/dL [facility] Comment on above: No normal range esta blished. Urine Total Protein Creatinine Ratio 0.07 [facility] Protein,Tot,[place] [facility] 2021 Creatinine [Mass/Vol] 93.8 mg/dL Normal 28.0-217.0 [facility] Comment on above: Performed By: #### U RTPRT #### [address] [place] [address] Test Analyst: Morro Hale MD Tot Prot. Conc. 7 mg/dL Normal [facility] Comment on above: Result Comment: No n ormal range established. Performed By: #### U RTPRT #### [facility] [address] [place] [address] Test Analyst: Morro Hale MD TP/Cre Ratio 0.07 Normal 0.00-0.20 [facility] Comment on above: Performed By: #### U RTPRT #### [facility] [address] [place] [address] Test Analyst: Morro Hale MD Uric Acidon 09-16-2021 Urate [Mass/Vol] 2.8 mg/dL Normal 2.4-5.7 [facility] Comment on above: Performed By: #### L D, CP, URI, CDP #### [facility] [address] [place] [address] Test Analyst: Morro Hale MD Urate [Mass/Vol] 2.8 mg/dL 2.4 - 5.7 mg/dL [facility] US OB Limitedon 09-07-2021 US OB Limited FINDINGS: Single viable intrauterine . BEN 17.0 cm. Closed cervix 4.3 cm length. Cephalic presentation. IMPRESSION: 1. Single viable intrauterine , cephalic presentation. 2. BEN 17.0 cm. 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 pyogenes Org specific cx Ql (Throat) Negative [employer] [facility] [employer] Other Quick Strep [employer] Other [facility] 04-19-2021 [facility] Normal [facility] Comment on above: Order Comment: [facility] [place] Name: INHERITE[employer] CARRIER SCREEN [id number] CPT 03975;[id number];24505 Result Comment: See report. Scanned copy available in EMR. PERFORMED BY: [address] [address] PATHOLOGIST PHYSICIAN SURGEON FLIEMON VARGAS M.D. Performed By: #### [facility] #### [address] [address] [facility] ABO, External Resulton 03-22 ABO, External Result o [employer] Phone: C. Trachomatis, External Res ulton 03-22-2021 C. Trachomatis, External Result Negative [employer] Phone: HIV, External Resulton 03-22 HIV, External Result Non-Reactive [employer] Phone: Hepatitis B, External Result on 03-22-2021 Hep B, External Result Non-Reactive [employer] Phone: N. Gonorrhoeae, External Res ulton 03-22-2021 N. Gonorrhoeae, External Result Negative [employer] Phone: No Panel InformationOrdered By: Nerissa Lerma on 03-22-2021 [employer] No Panel Informationon 03-22 Verified with Jacqueline Manuel RN [employer] Phone: [employer] Work Phone: RPR, External Labon 03-22-20 21 RPR, External Result Non-Reactive [employer] Phone: Rh Factor, External ResultOr dered By: Nerissa Lerma on 03-22-2021 Rh Factor, External Result + [employer] Rubella Titer, External Resu lton 03-22-2021 Rubella Titer, External Result immune [employer] Phone: Coding Summaryon 04-23-2017 Coding Summary CODING DATE: 017 [facility] STATUS: Home PAYOR: [employer] ADMIT DX: [...] Mccracken Date Saved: 04/23/2017 01:25 pm Normal [facility] ED Clinical Summaryon 2016 ED Clinical Summary [facility] ? Urgent [address] [place] [address] clinical SummaryPERSON INFORMATIONName: SOLANGE BROWER Age: 32 Years Sex: FEMALEDOB: [birth year] MRN: Acct#:Visit Reason: Lower leg pain-swelling; LEFT LEG PAIN AND SWELLING Arrival:04/12/17 12:10:00 Discharge: 04/12/17 12:37:00LOS: 000 00:27 Check In: 04/12/17 12:10:00 Checkout: 04/12/17 12:37:00Address:[address] [place] [address] [address] [facility] [id number]: Edward McqueenPROAZEEM INFORMATIONProvider Role Assigned UnassignedBentley Amin PA-C ED PA 04/12/17 12:23:22VITALS INFORMATIONVital Sign Triage LatestTemperature TympanicTemperature Temporal ArteryPulse Rate 97 bpm 97 bpmO2 Sat 98 % 98 %Respiratory Rate 20 br/min 20 br/minBlood Pressure 120 mmHg/90 mmHg 120 mmHg/90 mmHgMEDICAL INFORMATIONMedications Given:Allergy Information:PHYSICIAN DOCUMENTATIONDISCHARGE INFORMATION:Discharge Disposition: HomeDischarge Location: HomePATIENT EDUCATION INFORMATIONInstructions: Muscle Strain, Tsji-jk-OqhcOfjtqy-Up:With: Address: When:Rober Loya [address] [place] [address], [place], [phone] Business (2) Within 3 to 5 days, only if neededWith: Address: When:Edward Mcqueen [address] [place] [address] Business (1) Within 3 to 5 daysDIAGNOSIS:Muscle strain of lower legComment: Normal [facility] ED Note - Physicianon 2016 ED Note - Physician Patient: NILTON BROWER : 32 years Sex: FEMALE : [birth year]Associated Diagnoses: Muscle strain of lower legAuthor: Bentley Amin-CHistory of Present IllnessThis is a 32 year old here today with concerns of feeling a pop in her calf while bending over to strip picker her 4 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 [...] mmHg SpO2 98 % O2 Flow 0 L/min.Ebwmkdcpqlly51/06/17 12:15 EDT Height/Length Dosing 157.4 cm Weight [...] ice and elevate. OTC Motrin for pain, Granville as needed for severe pain. Return with new, or worsening symptoms, or symptoms failing to improve as expected and the patient voiced their understanding. Questions answered. Follow-up with their family doctor as directed, return here sooner as needed. See ortho as needed.Impression and PlanDiagnosisMuscle strain of lower leg ([id number] S86.919A, Discharge, Medical)PlanCondition: Stable.Disposition: Discharged: Time 04/12/17 12:36:00, to home.Prescriptions: Launch prescriptionsPharmacy:[place] 5 mg-325 mg oral tablet (Prescribe): 1 tab(s), PO, q6hr, for 3 day(s), PRN: for pain, 12 tab(s), 0 Refill(s).Patient was given the following educational materials: Muscle Strain, Hwtm-gj-Rfyg, Muscle Strain, Sqyx-jm-Khdq.Follow up with: Edward Mcqueen Within 3 to [...] 04/12/2017 12:51 EDT] Bentley Amin PA-C Normal [facility] ED Patient Summaryon 017 ED Patient Summary [facility] ? Urgent [address] [place] [address] pATIENT DISCHARGE INSTRUCTIONSPatient InformationName: LINDAADELAIDA MORENOSOLANGEMIRIAN PAREDES Age: 32 YearsDate of : [birth year]MRN: [id number] For Visit: Lower leg pain-swelling; LEFT LEG PAIN AND SWELLINGArrival Time: 04/12/17 12:10:00Phone: Primary Care Physician: Pat Mcqueen Physician: Bentley Amin-CComment:Patient EducationWith: Address: When:Rober Loya [address] [place] [address], [address] [place], [phone] Business (2) Within 3 to 5 days, only if neededWith: Address: When:Edward Mcqueen [address] [place] [address] Business (1) Within 3 to 5 daysMuscle [...] Reviewed: 01/21/2014Luz [employer] Interactive Patient Education ?2016 [employer].Medication Information:The exam and treatment you received today in the [facility] Emergency Department were for an urgent problem and are not intended as complete care. It is important for you to follow up with a doctor, nurse practitioner, or physician?s assistant manager for ongoing care. If your symptoms [...] number so we can reach you if necessary.[facility] Emergency Department has provided you with a complete list of medications post discharge. Please inform your sapphire stylus grinder/provider of your visit and for further instruction on these medications. Any specific questions regarding your chronic medications and dosages should be discussed with your primary care physician(s) and/or pharmacist. New MedicationsPrinted Prescriptionsacetaminophen-h ydrocodone ([place] 5 mg-325 mg oral tablet) 1 tab(s) Oral Every 6 hours as needed for pain for 3 Days. Refills: 0.Visit InformationVisit Diagnosis:Diagnoses This Visit Lower leg pain-swelling ([id number]) Muscle strain of lower leg (S86.919A)If you [...] Disease Control and Prevention March 2014 Normal [facility] Urgent Care [place] 017 Urgent Care Record [facility] ? Urgent [address] [place] [id number] pATIENT DISCHARGE INSTRUCTIONSPatient InformationName: SOLANGE BROWER Age: 32 YearsDate of : [birth year]MRN: [id number] For Visit: Lower leg pain-swelling; LEFT LEG PAIN AND SWELLINGArrival Time: 04/12/17 12:10:00Phone: Primary Care Physician: Edward McqueenAttlyle Physician: Bentley Amin PA-CComment:Visit Diagnosis:Diagnoses This Visit Lower leg pain-swelling ([id number]) Muscle strain of lower leg (S86.694H)If you received any narcotics, sedation, or any [...] sign any legal documentsWith: Address: When:Rober Loya [address] [place] [address], [address] [place], [phone] Business (2) Within 3 to 5 days, only if neededWith: Address: When:Edward Mcqueen [address] [place] [address] Business (1) Within 3 to 5 daysMedication Information:The exam and treatment you received today in the [facility] Urgent Care were for an urgent problem and are not intended as complete care. It is important for you to follow up with a doctor, nurse practitioner, or physician?s assistant manager for ongoing care. If your symptoms [...] number so we can reach you if necessary.[facility] has provided you with a complete list of medications post discharge. Please inform your sapphire stylus grinder/provider of your visit and for further instruction on these medications. Any specific questions regarding your chronic medications and dosages should be discussed with your primary care physician(s) and/or pharmacist. New MedicationsPrinted Prescriptionsacetaminophen-h ydrocodone ([place] 5 mg-325 mg oral tablet) 1 tab(s) [...] Released: 04/02/2009 Document Revised: 04/14/2014 Document Reviewed: 01/21/2014Elsevier Interactive Patient Education ?2016 [employer] Viruses or BacteriaWhat?s got you sick?Antibiotics [...] Antibiotics Jenn.[place] Department of Health and Human ServicesBrecksville Va / Crille Hospitalers for Disease Control and Prevention March 2014 [facility] Vital Signs Date Time Vital Sign Value Performing Clinician Facility 11-16-2024 15:34-0400 Body height 157.48 cm [facility] 11-16-2024 15:34-0400 Body mass index (BMI) [Ratio] 29.4 kg/m2 [facility] 11-16-2024 15:34-0400 Body weight 73.02 kg [facility] 11-16-2024 15:34-0400 Diastolic blood pressure 79 mm[Hg] [facility] 11-16-2024 15:34-0400 Heart rate 51 /min [facility] 11-16-2024 15:34-0400 Respiratory rate 12 /min [facility] 11-16-2024 15:34-0400 Systolic blood pressure 131 mm[Hg] [facility] 08-24-2024 09:02-0500 Body height 157.5 cm [email or web address] DO Work Phone: [facility] 08-24-2024 09:02-0500 Body mass index (BMI) [Ratio] 29.29 kg/m2 [employer] Carola DO Work Phone: [facility] 08-24-2024 09:02-0500 Body weight 72.63 kg [email or web address] DO Work Phone: [facility] 08-24-2024 09:02-0500 Diastolic blood pressure 70 mm[Hg] Beitto Tayloro DO Work Phone: [facility] 08-24-2024 09:02-0500 Systolic blood pressure 110 mm[Hg] Betito Carola DO Work Phone: [facility] 08-18-2024 13:27-0500 Body height 157.48 cm [facility] 08-18-2024 13:27-0500 Body mass index (BMI) [Ratio] 29.3 kg/m2 [facility] 08-18-2024 13:27-0500 Body weight 72.8 kg [facility] 08-18-2024 13:27-0500 Diastolic blood pressure 86 mm[Hg] [facility] 08-18-2024 13:27-0500 Heart rate 73 /min [facility] 08-18-2024 13:27-0500 Respiratory rate 12 /min [facility] 08-18-2024 13:27-0500 Systolic blood pressure 142 mm[Hg] [facility] 07-31-2024 10:52-0500 Body height 157.5 cm Crystal Calhoun MD Work Phone: [facility] 07-31-2024 10:52-0500 Body mass index (BMI) [Ratio] 29.07 kg/m2 Crystal Calhoun MD Work Phone: [facility] 07-31-2024 10:52-0500 Body weight 72.12 kg Crystal Calhoun MD Work Phone: [facility] 07-31-2024 10:52-0500 Diastolic blood pressure 82 mm[Hg] Crystal Calhoun MD Work Phone: [facility] 07-31-2024 10:52-0500 Heart rate 73 /min Crystal Calhoun MD Work Phone: [facility] 07-31-2024 10:52-0500 SaO2% (BldA) [Mass fraction] 100 % Crystal Calhoun MD Work Phone: [facility] 07-31-2024 10:52-0500 Systolic blood pressure 110 mm[Hg] Crystal Calhoun MD Work Phone: [facility] 07-16-2024 14:34-0500 Body mass index (BMI) [Ratio] 29.63 kg/m2 Diannemalcolm Rosaleso CNM Work Phone: [facility] 07-16-2024 14:34-0500 Body weight 73.48 kg Dianne Floro CNM Work Phone: [facility] 07-16-2024 14:34-0500 Diastolic blood pressure 70 mm[Hg] Dianne Connieo CNM Work Phone: [facility] 07-16-2024 14:34-0500 Systolic blood pressure 112 mm[Hg] Dianne Floro CNM Work Phone: [facility] 03-23-2024 10:36-0400 Body height 157.5 cm Mick Yenrick PA Work Phone: [facility] 03-23-2024 10:36-0400 Body mass index (BMI) [Ratio] 29.95 kg/m2 Mick Yenrick PA Work Phone: [facility] 03-23-2024 10:36-0400 Body weight 74.3 kg Mick Yenrick PA Work Phone: [facility] 03-23-2024 10:36-0400 Diastolic blood pressure 72 mm[Hg] Mick Yenrick PA Work Phone: [facility] 03-23-2024 10:36-0400 Heart rate 75 /min Mick Yenrick PA Work Phone: [facility] 03-23-2024 10:36-0400 SaO2% (BldA) [Mass fraction] 100 % Mick Yenrick PA Work Phone: [facility] 03-23-2024 10:36-0400 Systolic blood pressure 112 mm[Hg] Mick Yenrick PA Work Phone: [facility] 12-23-2023 15:27-0400 Body height 157.48 cm [facility] 12-23-2023 15:27-0400 Body mass index (BMI) [Ratio] 30.2 kg/m2 [facility] 12-23-2023 15:27-0400 Body weight 74.84 kg [facility] 12-23-2023 15:27-0400 Diastolic blood pressure 78 mm[Hg] [facility] 12-23-2023 15:27-0400 Heart rate 67 /min [facility] 12-23-2023 15:27-0400 Respiratory rate 12 /min [facility] 12-23-2023 15:27-0400 Systolic blood pressure 122 mm[Hg] [facility] 10-14-2021 07:24-0400 Body temperature 97.39 [degF] Bryanna Pool GIVING OFFICER - CNM Work Phone: [facility] 10-14-2021 07:24-0400 Diastolic blood pressure 75 mm[Hg] Bryanna Pool GIVING OFFICER - CNM Work Phone: [facility] 10-14-2021 07:24-0400 Heart rate 67 /min Bryanna Pool GIVING OFFICER - CNM Work Phone: [facility] 10-14-2021 07:24-0400 Respiratory rate 16 /min Bryanna Pool GIVING OFFICER - CNM Work Phone: [facility] 10-14-2021 07:24-0400 Systolic blood pressure 119 mm[Hg] Bryanna Pool GIVING OFFICER - CNM Work Phone: [facility] 10-13-2021 06:01-0400 SaO2% (BldA) [Mass fraction] 96 % Bryanna Pool GIVING OFFICER - CNM Work Phone: [facility] 10-12-2021 10:22-0400 Body mass index (BMI) [Ratio] 52.13 kg/m2 Bryanna Pool GIVING OFFICER - CNM Work Phone: [facility] 10-12-2021 10:22-0400 Body weight 129.28 kg Bryanna Barth GIVING OFFICER - CNM Work Phone: [employer] 10-07-2021 14:56-0400 Diastolic blood pressure 64 mm[Hg] Dianne Dang GIVING OFFICER - CNM Work Phone: [employer] 10-07-2021 14:56-0400 Heart rate 76 /min Dianne Dang GIVING OFFICER - CNM Work Phone: [employer] 10-07-2021 14:56-0400 Systolic blood pressure 123 mm[Hg] Dianne Dang GIVING OFFICER - CNM Work Phone: [employer] 10-07-2021 14:23-0400 Respiratory rate 18 /min Dianne Dang GIVING OFFICER - CNM Work Phone: [employer] 09-30-2021 14:03-0400 Body height 157.5 cm Dianne Dang GIVING OFFICER - CNM Work Phone: [employer] 09-30-2021 14:03-0400 Body mass index (BMI) [Ratio] 51.58 kg/m2 Dianne Dang GIVING OFFICER - CNM Work Phone: [employer] 09-30-2021 14:03-0400 Body temperature 98.01 [degF] Dianne Dang GIVING OFFICER - CNM Work Phone: [employer] 09-30-2021 14:03-0400 Body weight 127.91 kg Dianne Dang GIVING OFFICER - CNM Work Phone: [employer] 09-23-2021 15:35-0400 Body temperature 98.2 [degF] Dianne Dang GIVING OFFICER - CNM Work Phone: [employer] 09-23-2021 15:35-0400 Diastolic blood pressure 73 mm[Hg] Dianne Dang GIVING OFFICER - CNM Work Phone: [employer] 09-23-2021 15:35-0400 Heart rate 96 /min Dianne Dang GIVING OFFICER - CNM Work Phone: [employer] 09-23-2021 15:35-0400 Respiratory rate 18 /min Dianne Dang GIVING OFFICER - CNM Work Phone: [employer] 09-23-2021 15:35-0400 Systolic blood pressure 118 mm[Hg] Dianne Dang GIVING OFFICER - CNM Work Phone: [employer] 09-16-2021 15:59-0500 Diastolic blood pressure 72 mm[Hg] Dianne Dang GIVING OFFICER - CNM Work Phone: [employer] 09-16-2021 15:59-0500 Heart rate 77 /min Dianne Dang GIVING OFFICER - CNM Work Phone: [employer] 09-16-2021 15:59-0500 Systolic blood pressure 141 mm[Hg] Dianne Dang GIVING OFFICER - CNM Work Phone: [employer] 09-16-2021 14:25-0500 Body height 157.5 cm Dianne Dang GIVING OFFICER - CNM Work Phone: [employer] 09-16-2021 14:25-0500 Body mass index (BMI) [Ratio] 49.38 kg/m2 Dianne Dang GIVING OFFICER - CNM Work Phone: [employer] 09-16-2021 14:25-0500 Body temperature 97.81 [degF] Dianne Dang GIVING OFFICER - CNM Work Phone: [employer] 09-16-2021 14:25-0500 Body weight 122.47 kg Dianne Dang GIVING OFFICER - CNM Work Phone: [employer] 09-16-2021 14:25-0500 Respiratory rate 16 /min Dianne Dang GIVING OFFICER - CNM Work Phone: [employer] 09-09-2021 14:06-0500 Diastolic blood pressure 68 mm[Hg] Dianne Dang GIVING OFFICER - CNM Work Phone: [employer] 09-09-2021 14:06-0500 Heart rate 78 /min Dianne Dang GIVING OFFICER - CNM Work Phone: [employer] 09-09-2021 14:06-0500 Systolic blood pressure 124 mm[Hg] Dianne Dang GIVING OFFICER - CNM Work Phone: [employer] 09-09-2021 14:04-0500 Body height 158.8 cm Dianne Dang GIVING OFFICER - CNM Work Phone: [employer] 09-09-2021 14:04-0500 Body mass index (BMI) [Ratio] 49.5 kg/m2 Dianne Dang GIVING OFFICER - CNM Work Phone: [employer] 09-09-2021 14:04-0500 Body temperature 98.01 [degF] Dianne Dang GIVING OFFICER - CNM Work Phone: [employer] 09-09-2021 14:04-0500 Body weight 124.74 kg Dianne Dang GIVING OFFICER - CNM Work Phone: [employer] 09-09-2021 14:04-0500 Respiratory rate 18 /min Dianne Dang GIVING OFFICER - CNM Work Phone: [employer] 06-14-2021 15:00-0500 Body height 157.48 cm Margie Fish Other [employer] Other 06-14-2021 15:00-0500 Body mass index (BMI) [Ratio] 45.72 kg/m2 Margie Polina Other [employer] Other 06-14-2021 15:00-0500 Body temperature 98.3 [degF] Margie Polina Other [employer] Other 06-14-2021 15:00-0500 Body weight 113.4 kg Margie Fish Other [employer] Other 06-14-2021 15:00-0500 Respiratory rate 18 /min Margie Fish Other [employer] Other 06-14-2021 15:00-0500 SaO2% (BldA) [Mass fraction] 98 % Margie Fish Other [employer] Other Encounters Encounter Date Encounter Type Care Provider Facility Start: 04-13-2025 End: 04-13-2025 ambulatory [facility] Start: 01-13-2025 End: 01-13-2025 Telephone encounter Emilie Almazan CMA [facility] Start: 01-12-2025 End: 01-12-2025 Telephone encounter Emilie Almazan CMA [facility] Start: 01-11-2025 End: 01-11-2025 Telephone encounter Flor Barr RN [facility] Department of [facility] Start: 01-01-2025 End: 01-01-2025 ambulatory [facility] Start: 11-19-2024 ambulatory [facility] Start: 11-19-2024 End: 11-19-2024 ambulatory [facility] Start: 11-16-2024 End: 11-16-2024 ambulatory [facility] Work Phone: Start: 11-16-2024 End: 11-16-2024 [facility]: Start: 11-13-2024 Non-patient / Non-visit [facility] [employer] Work Phone: Start: 10-13-2024 End: 10-13-2024 ambulatory [facility] Start: 09-30-2024 End: 09-30-2024 Golden [place] RN [facility] Start: 09-03-2024 Non-patient / Non-visit [facility] Work Phone: Start: 09-03-2024 Non-patient / Non-visit [facility] Work Phone: Start: 09-02-2024 End: 09-02-2024 ambulatory [facility] Start: 09-02-2024 Non-patient / Non-visit [facility] Work Phone: Start: 08-27-2024 End: 08-27-2024 Office outpatient visit 25 minutes Blane Healy MD Work Phone: [facility] Comment on above: LOC (loss of conscio usness) (CMS-HCC) (Primary Dx) Start: 08-27-2024 End: 08-27-2024 ambulatory [facility] Start: 08-24-2024 End: 08-24-2024 Bamboo [...] Not Available Start: 08-18-2024 End: 08-18-2024 ambulatory [facility] Work Phone: Start: 08-18-2024 End: 08-18-2024 Patient encounter procedure [facility] Work Phone: Start: 08-17-2024 Non-patient / Non-visit [facility] Work Phone: Start: 07-31-2024 End: 07-31-2024 Office outpatient visit 15 minutes Nelda Paniagua MD Work Phone: [facility] Comment on above: Palpitations (Primar y Dx); PFO (patent foramen ovale); S/P percutaneous patent foramen ovale closure; TIA (transient ischemic attack) Start: 07-30-2024 End: 07-30-2024 Telephone encounter Emilie Almazan [facility] Start: 07-27-2024 End: 07-28-2024 Telephone encounter Estefania Mitchell [facility] Start: 07-16-2024 End: 07-16-2024 [...] [facility] Start: 06-18-2024 ambulatory MICK JETT [facility] Start: 06-17-2024 End: 06-17-2024 Telephone encounter Mick DE LA PAZ Work Phone: [facility] Start: 05-26-2024 End: 06-12-2024 Telephone encounter Nohemy Kingsley RN [facility] Start: 04-27-2024 End: 04-27-2024 ambulatory MICK JETT [facility] Start: 03-23-2024 End: 03-23-2024 Office outpatient visit 25 minutes Mick DE LA PAZ Work Phone: [facility] Comment on above: PFO (patent foramen ovale) (Primary Dx); S/P percutaneous patent foramen ovale closure Start: 03-23-2024 End: 03-23-2024 ambulatory MICK JETT [facility] Start: 03-13-2024 End: 03-13-2024 ambulatory [facility] Start: 03-11-2024 End: 03-11-2024 Orders Only Trinidad [...] (Primary Dx) Start: 02-17-2024 End: 02-17-2024 ambulatory [facility] Start: 02-04-2024 End: 02-04-2024 Chart abstracting Dante Degroot MD Work Phone: [facility] Start: 01-29-2024 End: 01-29-2024 Office outpatient visit 25 minutes Blane Healy MD Work Phone: [facility] Comment on above: TIA (transient ische kunal attack) (Primary Dx) Start: 01-29-2024 End: 01-29-2024 ambulatory [facility] Start: 01-27-2024 End: 01-27-2024 ambulatory DIANNE DANG Not Available Start: 01-13-2024 End: 01-13-2024 ambulatory RAQUEL NATION [facility] Start: 12-29-2023 ambulatory EDWARD MCQUEEN [facility] Start: 12-26-2023 ambulatory MICK JETT [facility] Start: 12-26-2023 End: 12-26-2023 Documentation procedure Mick DE LA PAZ Work Phone: [facility] Start: 12-26-2023 End: 12-27-2023 Telephone encounter Maki David RN [facility] Start: 12-23-2023 End: 12-23-2023 ambulatory [facility] Work Phone: Start: 12-23-2023 End: 12-23-2023 Patient encounter procedure [facility] Work Phone: Start: 12-18-2023 End: 12-18-2023 Telephone encounter Nohemy Kingsley RN [facility] Start: 12-18-2023 ambulatory EDWARD MCQUEEN [facility] Start: 12-18-2023 Non-patient / Non-visit [facility] Work Phone: Start: 12-17-2023 End: 12-26-2023 Emergency department patient visit EDWARD Armijo [facility] Start: 12-17-2023 Non-patient / Non-visit [facility] Work Phone: Start: 12-16-2023 End: 12-16-2023 ambulatory DIANNE Elliot DANG Not Available Start: 05-03-2023 End: 05-03-2023 ambulatory Edward Mcqueen Other [employer] Other Start: 05-03-2023 Office outpatient vi sit 15 minutes Edward Mcqueen [facility] Start: 04-23-2023 End: 04-23-2023 ambulatory Edward Mcqueen Other [employer] Other Start: 04-23-2023 Telephone encounter Edward HAJI G [facility] Start: 04-22-2023 End: 04-22-2023 ambulatory Edward Mcqueen Other [employer] Other Start: 04-22-2023 Telephone encounter Edward Mcqueen RAISSA G [facility] Start: 04-09-2023 End: 04-09-2023 ambulatory Edward Mcqueen Other [employer] Other Start: 04-09-2023 Office outpatient vi sit 15 minutes Edward Mcqueen [facility] Start: 09-20-2022 End: 09-20-2022 ambulatory Edward Mcqueen Other [employer] Other Start: 09-20-2022 Telephone encounter Edward HAJI [facility] Start: 08-29-2022 End: 08-29-2022 ambulatory Edward Richar Other [employer] Other Start: 08-29-2022 Office outpatient vi sit 15 minutes Edward cMqueen [facility] Start: 08-17-2022 Telephone encounter Edward HAJI [facility] Start: 08-17-2022 End: 08-18-[address] EDWARD MCQUEEN Facility:[facility] Start: 08-17-2022 End: 08-18-2022 ambulatory BERTO ZIMMERMAN Facility:[facility] Start: 10-12-2021 End: 10-14-2021 Evaluation and management of inpatient ZANONI Zofia [facility] Start: 10-12-2021 End: 10-14-2021 Evaluation and management of inpatient Dunbar Zofia [facility] ALFREDO Work Phone: [facility] Comment on above: Born [...] by physician Dianne Clark CNM Work Phone: [facility] Delivery Comment on above: Diet controlled gest ational diabetes mellitus (GDM) in third trimester Start: 09-16-2021 End: 09-16-2021 ambulatory [facility] Start: 09-16-2021 End: 09-16-2021 Subsequent hospital visit by physician Dianne Clark CNM Work Phone: [facility] Labor and Delivery Comment on above: Diet controlled gest ational diabetes mellitus (GDM) in third trimester Start: 09-09-2021 End: 09-09-2021 ambulatory DIANNE [facility] Start: 09-09-2021 End: 09-09-2021 Subsequent hospital visit by physician Dianne Dang APRN - ELINOR Work Phone: [facility] Labor and Delivery Comment on above: Diet controlled gest ational diabetes mellitus (GDM) in third trimester Start: 09-02-2021 End: 09-02-2021 ambulatory [facility] Start: 06-14-2021 (URG) Urgent Care Visit Margie aguirre [facility] Start: 06-14-2021 End: 06-14-2021 ambulatory Margie Fish Other [employer] Other Start: 04-12-2017 End: 04-12-2017 Ambulatory Bentley Amin Facility:[facility] Procedures Date Procedure Procedure Detail Performing Clinician Start: 07-31-2024 Ecg routine ecg w/le ast 12 lds w/i&r Crystal Calhoun MD Work Phone: Start: 02-17-2024 Follow-up visit Follow-up Dante DEGROOT Start: 10-14-2021 GLUCOSE, WHOLE BLOOD Zoila Clark CNM Work Phone: Start: 10-13-2021 GLUCOSE, WHOLE BLOOD Zoila Dang GIVING OFFICER - CNM Work Phone: Start: 10-13-2021 GLUCOSE, WHOLE BLOOD Zoila Dang GIVING OFFICER - CNM Work Phone: Start: 10-13-2021 GLUCOSE, WHOLE BLOOD Zoila Dang GIVING OFFICER - CNM Work Phone: Start: 10-13-2021 Assay of magnesium Mendy Dang GIVING OFFICER - CNM Work Phone: Start: 10-13-2021 Blood count hemoglobin Dianne Dang GIVING OFFICER - CNM Work Phone: Start: 10-13-2021 GLUCOSE, WHOLE BLOOD Zoila Dang GIVING OFFICER - CNM Work Phone: Start: 10-13-2021 Assay of magnesium Mendy Dang GIVING OFFICER - CNM Work Phone: Start: 10-12-2021 GLUCOSE, WHOLE BLOOD Zoila Dang GIVING OFFICER - CNM Work Phone: Start: 10-12-2021 GLUCOSE, WHOLE BLOOD Zoila Dang GIVING OFFICER - CNM Work Phone: Start: 10-12-2021 GLUCOSE, WHOLE BLOOD Zoila Dang GIVING OFFICER - CNM Work Phone: Start: 10-12-2021 Antibody screen Eveline n Pool GIVING OFFICER - CNM Work Phone: Start: 10-12-2021 Blood typing serolog ic abo Bryanna E Solo GIVING OFFICER - CNM Work Phone: Start: 10-12-2021 End: 10-12-2021 Comprehensive metabolic panel Bryanna E Pool GIVING OFFICER - CNM Work Phone: Start: 10-12-2021 Drug screen class list a Bryanna E Pool GIVING OFFICER - CNM Work Phone: Start: 10-12-2021 Urnls dip stick/tabl et rgnt auto w/o microscopy Bryanna E Pool GIVING OFFICER - CNM Work Phone: Start: 10-07-2021 nonstress test Va tyler Dang GIVING OFFICER - CN Work Phone: Start: 09-26-2021 GBS, EXTERNAL RESULT Ma andrea Purvis MD Start: 09-16-2021 End: 09-16-2021 Comprehensive metabolic panel Ai Burnham GIVING OFFICER - CN Work Phone: Start: 09-16-2021 nonstress test Va tyler Dang GIVING OFFICER - CN Work Phone: Start: 03-22-2021 ABO, EXTERNAL RESULT Hi debical Provider Start: 03-22-2021 C. TRACHOMATIS, EXTE RNAL RESULT Historical Provider Start: 03-22-2021 HEPATITIS B, EXTERNA L RESULT Historical Provider Start: 03-22-2021 HIV, EXTERNAL RESULT Ma andrea Provider Start: 03-22-2021 N. GONORRHOEAE, EXTE RNAL RESULT Historical Provider Start: 03-22-2021 RH FACTOR, EXTERNAL RESULT Historical Provider Start: 03-22-2021 RPR, EXTERNAL RESULT Ma storical Provider Start: 03-22-2021 RUBELLA TITER, EXTER [...] Td Vaccines (7 - Td or Tdap) [facility] Start: 07-30-2028 DTaP/Tdap/Td vaccine (7 - Td or Tdap) DTaP/Tdap/Td vaccine (7 - Td or Tdap) [facility] Start: 07-31-2025 Adult BMI Screening Adult BMI Screening [facility] Start: 07-31-2025 Tobacco Screening Tobacco Screening [facility] Start: 03-23-2025 Adult BMI Screening Adult BMI Screening [facility] Start: 03-23-2025 Tobacco Screening Tobacco Screening [facility] Start: 03-08-2025 Influenza vaccination Influenza Vaccine [facility] Start: 02-16-2025 Tobacco Screening Tobacco Screening [facility] Start: 01-13-2025 End: 01-13-2025 Patient encounter procedure 01/13/2025 10:00 AM EDT Office Visit [facility] [address] [facility] [address] [place] [phone] Rafat Blakely MD [address] [place] [address] [facility] Start: 01-12-2025 Tobacco Screening Tobacco Screening [facility] Start: 10-05-2024 End: 10-05-2024 Patient encounter procedure 10/05/2024 9:30 AM EDT Procedure Visit [facility] [address] [place] [phone] Betito Srivastava DO [address] [place] [address] [facility] Start: 08-27-2024 End: 08-27-2024 Telemedicine consultation with patient 08/27/2024 1:00 PM EST Telemedicine [facility] [address] [place] [phone] Blane Healy MD [address] [place] [address], [address] [place], [place] [id number] [facility] Start: 08-24-2024 End: 08-24-2025 DHEA DHEA Lab Routine Irregular menstrual cycle Menorrhagia with irregular cycle Expected: 08/24/2024 (Approximate), Expires: 08/24/2025 [facility] Comment on above: Expected: 08/24/2024 (Approximate), Expi res: 08/24/2025 Start: 08-24-2024 End: 08-24-2025 US Pelvis US Pelvis w/ TV Imaging Routine Irregular menstrual cycle Menorrhagia with irregular cycle Expected: 08/24/2024, Expires: 08/24/2025 [facility] Comment on above: Expected: 08/24/2024, Expires: Start: 08-24-2024 End: 08-24-2024 Patient encounter procedure 08/24/2024 9:00 AM EST Office Visit [facility] [address] [place] [phone] Betito Srivastava DO [address] [place] [address] Arrived [facility] Comment on above: Arrived Start: 07-31-2024 End: 07-31-2024 Patient encounter procedure 07/31/2024 11:15 AM EST Office Visit [facility] [address] [place] [phone] Nelda Paniagua MD [address] [place] [address] Crystal Calhoun MD [address] [place] [address] [facility] Start: 07-20-2024 End: 07-20-2024 Patient encounter procedure 07/20/2024 11:30 AM EST Office Visit [facility] [address] [place] [address] Nelda Paniagua MD [address] [place] [address] [facility] Start: 07-16-2024 End: 07-16-2024 Patient encounter procedure 07/16/2024 2:30 PM EST Office Visit [facility] [address] [place] [phone] Dianne Dang, ALFREDOM [address] [place] [address] Arrived [facility] Comment on above: Arrived Start: 06-17-2024 End: 06-17-2025 Wireless Telemetry (In Office) Wireless Telemetry (In Office) Cardiac Services Routine Palpitations Expected: 06/17/2024, Expires: 06/17/2025 [facility] Work Phone: Comment on above: Expected: 06/17/2024, Expires: Start: 04-27-2024 End: 04-27-2024 Patient encounter procedure 04/27/2024 10:30 AM EDT Appointment [facility] [address] [place] [address] [facility] Start: 04-22-2024 End: 03-23-2025 Echo complete W/O contrast Echo complete W/O contrast Echocardiography Routine PFO (patent foramen ovale) S/P percutaneous patent foramen ovale closure Expected: 04/22/2024 (Approximate), Expires: 03/23/2025 [facility] Work Phone: Comment on above: Expected: 04/22/2024 (Approximate), Expi res: 03/23/2025 Start: 03-23-2024 End: 03-23-2024 Patient encounter procedure 03/23/2024 10:45 AM EDT Office Visit [facility] [address] [place] [phone] Mick Jett, [place] [address] [address] [facility] Start: 03-13-2024 End: 03-13-2024 Admission to same day surgery center 03/13/2024 7:30 AM EDT - 03/13/2024 9:30 AM EDT Surgery [facility] - Cardiac Cath [address] [place] [address] Dante Degroot MD [address] [place] [address] Patent foramen ovale closure with cath/patch/ICE [98439 (CPT )] [facility] Cardiac Cath Comment on above: Patent foramen ovale closure with cath/p atch/ICE [90962 (CPT )] Start: 03-13-2024 Subsequent hospital visit by physician 03/13/2024 7:30 AM EDT Hospital Encounter [facility] Cardiac Cath [address] [place] [address] Danet Degroot MD [address] [place] [address] PFO (patent foramen ovale) [facility] Cardiac Cath Comment on above: PFO (patent foramen ovale) Start: 03-12-2024 End: 03-12-2024 Admission to same day surgery center 03/12/2024 2:30 PM EDT - 03/12/2024 4:30 PM EDT Surgery [facility] Cardiac Cath [address] [place] [address] Dante Degroot MD [address] [place] [address] Patent foramen ovale closure with cath/patch/ICE [89880 (CPT )] [facility] Cardiac Cath Comment on above: Patent foramen ovale closure with cath/p atch/ICE [01524 (CPT )] Start: 03-12-2024 Subsequent hospital visit by physician 03/12/2024 2:30 PM EDT Hospital Encounter [facility] Cardiac Cath [address] [place] [address] Dante Degroot MD [address] [place] [address] PFO (patent foramen ovale) [facility] - Cardiac Cath Comment on above: PFO (patent foramen ovale) Start: 03-08-2024 COVID-19 Vaccine ( season) COVID-19 Vaccine ( season) [facility] Start: 03-08-2024 COVID-19 Vaccine ( season) COVID-19 Vaccine () [facility] Start: 03-08-2024 Influenza vaccination [facility] Start: 02-17-2024 End: 02-17-2024 Patient encounter procedure 02/17/2024 11:00 AM EDT Office Visit [facility] [address] [place] [address] [phone] Dante Degroot MD [address] [place], [place] [phone] [facility] Start: 01-29-2024 End: 01-29-2024 Telemedicine consultation with patient 01/29/2024 3:00 PM EDT Telemedicine [facility] Neurology [address] [place] [phone] Blane Healy MD [address] [place] [address], [address] [place] [address] [facility] Start: 01-13-2024 End: 01-13-2024 Patient encounter procedure 01/13/2024 8:45 AM EDT Appointment [facility] - Cardiac Cath [address] [place] [address] Raquel Nation MD [address] [place] [address] [facility] - Cardiac Cath Start: 12-26-2023 End: 12-25-2024 Wireless Telemetry (In Office) Wireless Telemetry (In Office) Cardiac Services Routine PFO (patent foramen ovale) TIA (transient ischemic attack) Palpitations Expected: 12/26/2023, Expires: 12/25/2024 [facility] Work Phone: Comment on above: Expected: 12/26/2023, Expires: Start: 03-08-2023 COVID-19 Vaccine ( season) COVID-19 Vaccine () [facility] Start: 10-12-2022 Creatinine [facility] Start: 10-12-2022 Potassium monitoring Potassium monitoring [facility] Start: 09-28-2022 Adult BMI Screening Adult BMI Screening [facility] Start: 03-08-2022 Influenza vaccination Flu vaccine (Season Ended) [facility] Start: 01-11-2022 Hemoglobin A1c measurement A1C test (Diabetic or Prediabetic) [facility] Start: 10-21-2021 End: 10-21-2021 Patient encounter procedure 10/21/2021 Appointment IP Unit [facility] OP LD Start: 10-18-2021 Subsequent hospital visit by physician 10/18/2021 Hospital Encounter Obstetrics and Gynecology Dianne Dang, GIVING OFFICER - CNM [address] [place] [address] [facility] Labor and Delivery Start: 10-17-2021 [...] LD Start: 2021 Diabetes screen Diabetes screen [facility] Start: 03-08-2021 Influenza vaccination Flu vaccine (#1) [facility] Start: 03-13-2020 Screening for malignant neoplasm of cervix [facility] Start: 2016 Screening for malignant neoplasm of cervix [facility] Start: 2007 Screening for malignant neoplasm of cervix Pap smear [facility] Start: 2004 Adult BMI Follow Up Plan Adult BMI Follow Up Plan [facility] Start: 2001 HIV screening HIV screen [facility] Start: 1998 Depression Screen Depression Screen [facility] Start: 1998 Depression Screening Depression Screening [facility] Start: 1998 Tobacco Screening Tobacco Screening [facility] Start: 1991 COVID-19 Vaccine (1) COVID-19 Vaccine (1) [facility] Start: 1987 Varicella vaccine (1 of 2 - 2-dose childhood series) Varicella vaccine (1 of 2 - 2-dose childhood series) [facility] Start: 1986 Hepatitis C screening Hepatitis C screen [facility] Start: 1986 Tobacco Counseling Tobacco Counseling [facility] CBC W Auto Differential panel - Blood CBC and differential Lab Routine Irregular menstrual cycle Menorrhagia with irregular cycle Ordered: 08/24/2024 [facility] Comment on above: Ordered: 08/24/2024 DHEA-sulfate DHEA-sulfate Lab Routine Irregular menstrual cycle Menorrhagia with irregular cycle Ordered: 08/24/2024 [facility] [employer] Comment on above: Ordered: 08/24/2024 End: 08-27-2025 EEG EEG Neurology Routine LOC (loss of consciousness) ([facility]) 1 Occurrences starting 08/27/2024 until 08/27/2025 [facility] Phone: Comment on above: 1 Occurrences starting 08/27/2024 until 08/27/2025 End: 09-09-2021 [facility]stress test [facility] Phone: Comment on above: 1 Occurrences starting 09/09/2021 until 09/09/2021 As Needed for 8 Occu rrences starting 09/09/2021 End: 09-23-2021 nonstress test nonstress test OB Routine Diet controlled gestational diabetes mellitus (GDM) in third trimester 1 Occurrences starting 09/23/2021 until 09/23/2021 [employer] Phone: Comment on above: 1 Occurrences starting 09/23/2021 until 09/23/2021 Follicle stimulating hormone Follicle stimulating hormone Lab Routine Irregular menstrual cycle Menorrhagia with irregular cycle Ordered: 08/24/2024 [employer] Comment on above: Ordered: 08/24/2024 End: 10-13-2021 Glucose [Mass/volume] in Serum or Plasma Glucose, Random Lab Timed Tomorrow AM for 1 Occurrences starting 10/13/2021 until 10/13/2021 [employer] Phone: Comment on above: Tomorrow AM for 1 Occurrences starting 0 10/13/2021 until 10/13/2021 Glucose [Mass/volume ] in Serum or Plasma [employer] Phone: Comment on above: 4X Daily (AC & HS) until discontinued st arting 10/12/2021 As Needed until disc ontinued starting 10/12/2021 hCG, quantitative, hCG, quantitative, Lab Routine Irregular menstrual cycle Menorrhagia with irregular cycle Ordered: 08/24/2024 [employer] Work Phone: Comment on above: Ordered: 08/24/2024 Hemoglobin A1c/Hemoglobin.total in Blood Hemoglobin A1c Lab Routine Irregular menstrual cycle Menorrhagia with irregular cycle Ordered: 08/24/2024 [employer] Comment on above: Ordered: 08/24/2024 Holter monitor study [facility] Luteinizing hormone Luteinizing hormone Lab Routine Irregular menstrual cycle Menorrhagia with irregular cycle Ordered: 08/24/2024 [employer] Comment on above: Ordered: 08/24/2024 End: 10-19-2021 Magnesium [Mass/volume] in Serum or Plasma Magnesium Lab Routine Every 6 Hours (Lab) for 7 Days starting 10/12/2021 until 10/19/2021, 3 completed [employer] Phone: Comment on above: Every 6 Hours (Lab) for 7 Days starting 10/12/2021 until 10/19/2021, 3 completed Nonrebreather mask oxygen Nonrebreather mask oxygen Respiratory Care Routine As directed - RT (PRN) until discontinued starting 10/12/2021 [employer] Phone: Comment on above: As directed - RT (PRN) until discontinue d starting 10/12/2021 Oxygen therapy [Minimum Data Set] Initiate Oxygen Therapy Protocol Respiratory Care Routine As Needed until discontinued starting 10/12/2021 [employer] Phone: Comment on above: As Needed until discontinued starting Spirometry panel Incentive itz metry Respiratory Care Routine Every 2hr while awake until discontinued starting 10/12/2021 [employer] Phone: Comment on above: Every 2hr while awake until discontinued starting 10/12/2021 End: 10-12-2021 Surgical Pathology Surgical Pathology Lab Routine One Time for 1 Occurrences starting 10/12/2021 until 10/12/2021 [employer] Phone: Comment on above: One Time for 1 Occurrences starting 01/2022 until 10/12/2021 End: 10-12-2021 SURGICAL PATHOLOGY REPORT SURGICAL PATHOLOGY REPORT Lab Routine Once for 1 Occurrences starting 10/12/2021 until 10/12/2021 [employer] Phone: Comment on above: Once for 1 Occurrences starting 10/13/19 until 10/12/2021 End: 10-13-2021 SURGICAL PATHOLOGY REPORT SURGICAL PATHOLOGY REPORT Lab Routine Once for 1 Occurrences starting 10/13/2021 until 10/13/2021 [employer] Phone: Comment on above: Once for 1 Occurrences starting 10/14/19 until 10/13/2021 Thyrotropin [Units/volume] in Serum or Plasma TSH Lab Routine Irregular menstrual cycle Menorrhagia with irregular cycle Ordered: 08/24/2024 [facility] [employer] Comment on above: Ordered: 08/24/2024 Thyroxine (T4) free [Mass/volume] in Serum or Plasma T4, free Lab Routine Irregular menstrual cycle Menorrhagia with irregular cycle Ordered: 08/24/2024 [facility] [employer] Comment on above: Ordered: 08/24/2024 [facility] Immunizations Immunization Date Immunization Notes Care Provider Fa cility 10-12-2021 diphtheria, tetanus toxoids and acellular pertussis vaccine, unspecified formulation Bryanna Barth GIVING OFFICER - CNM Work Phone: [facility] Work Phone: 10-12-2021 measles, mumps and rubella virus vaccine Bryanna Pool GIVING OFFICER - CNM Work Phone: [facility] Work Phone: 07-30-2018 tetanus toxoid, redu sana diphtheria toxoid, and acellular pertussis vaccine, adsorbed Nohemy Kingsley RN [facility] 03-26-2013 influenza virus vaccine, unspecified formulation Nohemy Kingsley RN [facility] Payers Date Payer Category Payer [facility] Memb er Subscriber Plan / Payer (Effective 2023-Present) Name: Solange Lucas Relation to Subscriber: Spouse Name: ERIKA LUCAS Date of : 1986 (Home) Address: [address] [place] [address] [place] [address] Payer ID: Not on file Type: Not on file Address: [place] [id number] 2023 [facility] Managed Care - Other ANTH [id number]. [id number] 2023 Unknown [id number]. 1.13.424. 2.7.3.882966.315 2023 Unknown [id number] 2020 Private Health Insurance [facility] [id number] 2020-Present [phone] [address] [place] [address] 1.2.840.451204.1.13.424. 2.7.3.723144.315 2014 Unknown [id number] 1985 Unknown [id number] 2.16.840.1.004820.3.579. 2.173 1986 Unknown [id number] 2.16.840.1.573045.3.579. 2.173 1986 Unknown [id number] 2.16.840.1.649388.3.579. 2.173 1986 Unknown [id number] 2.16.840.1.959010.3.579. 2.173 1986 Unknown [id number] 2.16.840.1.604070.3.579. 2.173 1986 Unknown [id number] 2.16.840.1.876295.3.579. 2.173 1986 Unknown [id number] 2.16.840.1.451015.3.579. 2.173 1986 Unknown [id number] 2.16.840.1.797213.3.579. 2.593 1986 Unknown [id number] 2.16.840.1.491912.3.579. 2.593 1986 Unknown [id number] 2.16.840.1.342162.3.579. 2.1286 1986 Unknown [id number] 2.16.840.1.020184.3.579. 2.1285 1986 Unknown [id number] 2.16.840.1.619405.3.579. 2.1285 1986 Unknown [id number] 2.16.840.1.699318.3.579. 2.1285 1986 Unknown [id number] 2.16.840.1.927223.3.579. 2.1285 1986 Unknown [id number] 2.16.840.1.023602.3.579. 2.1285 1986 Unknown [id number] 2.16.840.1.072035.3.579. 2.1285 1986 Unknown [id number] 2.16.840.1.272471.3.579. 2.9 1986 Unknown [id number] 2.16.840.1.760481.3.579. 2.1259 1986 Unknown [id number] 2.16.840.1.687052.3.579. 2.9 1986 Unknown [id number] 2.16.840.1.228437.3.579. 2.1259 1986 Unknown [id number] 2.16.840.1.706867.3.579. 2.1285 1986 Unknown [id number] 2.16.840.1.604206.3.579. 2.128 1986 Unknown [id number] 2.16.840.1.503173.3.579. 2.1285 1986 Unknown [id number] 2.16.840.1.933667.3.579. 2.1285 1986 Unknown [id number] 2.16.840.1.577383.3.579. 2.1285 1986 Unknown [id number] 2.16.840.1.559385.3.579. 2.1286 1986 Unknown [id number] 2.16.840.1.078377.3.579. 2.1286 1986 Unknown [id number] 2.16.840.1.116784.3.579. 2.1286 1986 Unknown [id number] 2.16.840.1.638953.3.579. 2.1286 1959 Private Health Insurance [id number] 1.2.840.659447.1.13.239. 2.7.3.830813.315 Self-pay Self Pay [id number] Social History Date Type Detail Facility Start: 04-19-2021 End: 03-23-2024 Tobacco smoking status NHIS Never smoked tobacco [employer] Other Start: 04-19-2021 End: 12-16-2023 Tobacco use and exposure Smokeless tobacco non-user [employer] Phone: Start: 09-09-2021 End: 07-31-2024 Alcohol intake Ex-drinker (finding) [employer] Phone: Start: 01-31-2021 [employer] Phone: Start: 1985 [facility] Work Phone: Start: 09-13-2021 End: 10-12-2021 Exposure to SARS-CoV-2 (event) Not sure [employer] Start: 08-18-2020 End: 01-27-2024 Sex Assigned At [employer] Other Start: 1985 Sex Assigned At Female F [facility] Start: 01-27-2024 End: 08-24-2024 Alcoholic beverage intake Current drinker of alcohol (finding) [facility] Start: 08-18-2020 End: 01-27-2024 History of Social function [facility] Start: 07-29-2018 End: 03-23-2024 Tobacco use and exposure User of smokeless tobacco [facility] Childcare Unknown [facility] Start: 03-23-2024 Tobacco Comment Nicotine pouch , occasionally. [facility] Start: 02-10-2015 End: 11-16-2024 Sex Female (finding) [facility] History of tobacco use [employer] [facility] Start: 01-17-2022 End: 03-11-2024 Alcoholic beverage intake Current non-drinker of alcohol (finding) [facility] Start: 07-22-2018 End: 02-04-2024 Tobacco Comment Once a week [facility] Medical Equipment Procedure Code Equipment Code Equipment Origin al Text Equipment Identifier Dates Occluder Cv Rt A tr Disc 25mm Lt Atr Disc 18mm Rcmd Shth 8f [facility] [id number] - [id number] Start: 03-13-2024 Use pen needles to give insulin. [id number] Start: 09-28-2021 Clinical Notes 06-14-2021 to 04-13-2025 Telephone Encounter - Emilie Almazan, [facility] - 01/13/2025 8:11 AM EDTTelephone Encounter - Emilie Almazan, [facility] - 01/13/2025 8:11 AM EDTTelephone Encounter - Flor Barr RN - 01/11/2025 11:17 AM EDT Note Date & Type Note Facility 04-13-2025 Note MI Electrophysiology Consult Note [place] Cardiology - [facility] Reason for visit: 04/13/25 Patient is here today per Hussein Salinas request. Patient states she has low iron and will possible be getting infusions. Patient denies palpitations/racing heart, dizziness/lightheaded, leg swelling. Patient complains of fatigue. Review of Systems Constitutional: Positive for malaise/fatigue. HPI: Solange Lucas is a 40 y.o. year old with past medical history of CVA and PFO s/p closure at [facility] (Dr. Kanu Degroot) who has been followed [...] Insecurity: No Food Insecurity (07/31/2024) Received from [facility] Hunger Screening Within the past 12 [...] on file Intimate Partner Violence: Unknown (12/18/2023) [place] Safety & Environment Fear of Current or [...] kg (170 lb) SpO2 99% BMI 31.09 kg/m??? OB Status Having periods Smoking Status Never BSA 1.84 m??? Meds: Current Outpatient Medications on File [...] mouth twice a day. (Patient not taking: Reported on 04/13/2025) famotidine (Pepcid) 20 mg tablet Take [...] wheezing, no rales, no rhonchi Cardiovascular Chest wa (more content not included)... [facility] 01-13-2025 Miscellaneous Notes Pt called to cancel appt scheduled on 01/13/2025 with VG. Per pt is currently following with [facility] Cardiology. documented in this encounter [facility] 01-13-2025 Telephone encounter Note Pt called to cancel appt scheduled on 01/13/2025 with VG. Per pt is currently following with [facility] Cardiology. [facility] 01-12-2025 Miscellaneous Notes Phoned pt to remind of appointment scheduled for 01/13/2025 , message left on vm for pt to bring current list of medications, photo ID, insurance card or cards, and any copays that will be due at that time, and to arrive 15 minutes early to check in. documented in this encounter [facility] 01-12-2025 Telephone encounter Note Phoned pt to remind of appointment scheduled for 01/13/2025 , message left on vm for pt to bring current list of medications, photo ID, insurance card or cards, and any copays that will be due at that time, and to arrive 15 minutes early to check in. [facility] 01-11-2025 Miscellaneous Notes Per recall of Dr. Healy, please call patient and see how they are doing. If no concerns, patient may follow up as needed. If apt needed now, okay to schedule with BENI or Dr. Healy. Patient stated she is doing well at the moment. Pt to call if she needs appt. documented in this encounter [facility] 01-11-2025 Telephone encounter Note Per recall of Dr. Healy, please call patient and see how they are doing. If no concerns, patient may follow up as needed. If apt needed now, okay to schedule with BENI or Dr. Healy. [facility] 01-11-2025 Telephone encounter Note Patient stated she is doing well at the moment. Pt to call if she needs appt. [facility] 01-01-2025 Note SUBJECTIVE Reason for Visit: Solange Lucas is a 39 y.o. year old female patient being seen for follow-up ablation. HPI: Solange Lucas is a 39 y.o. year old female with significant medical history of CVA and PFO s/p closure at [facility] (Dr. Kanu Degroot) who has been followed [...] Rate 11/19/2024 45 Atrial Rate 11/19/2024 45 AK Interval 11/19/2024 168 QRS DURATION 11/19/2024 80 QT Interval 11/19/2024 450 QTC CALCULATION(BAZETT) 11/19/2024 389 P Revere 11/19/2024 14 R-Revere 11/19/2024 11 T Wave Revere 11/19/2024 21 Protime 11/19/2024 14.7 INR 11/19/2024 1.15 (H) Glucose POC 11/19/2024 83 Haptoglobin 11/19/2024 80.0 Hemoglobin 11/19/2024 7.7 (L) LD 11/19/2024 162 Total Bilirubin 11/19/2024 0.7 Bilirubin, Direct 11/19/2024 0.1 Ventricular Rate 11/19/2024 70 Atrial Rate 11/19/2024 70 AK Interval 11/19/2024 158 QRS DURATION 11/19/2024 82 QT Interval 11/19/2024 422 QTC CALCULATION(BAZETT) 11/19/2024 455 P Revere 11/19/2024 48 R-Revere 11/19/2024 41 T Wave Revere 11/19/2024 37 POCT ACT 11/19/2024 262 (A) [...] OF PROCEDURE: 11/19/2024 PERFORMING PHYSICIAN: Dr. Dennis NANCE (more content not included)... [facility] 01-01-2025 Note Patient is here toda y for s/p ablation for A-Fib. Patient states she is feeling good, no complaints. Review of Systems Constitutional: Negative. [facility] 11-19-2024 Note ATRIAL FIBRILLATION ABLATION PROCEDURE NOTE DATE OF PROCEDURE: 11/19/2024 PERFORMING PHYSICIAN: Dr. Dennis Motley TRENCH TRIMMER FINE: SULEMAN CONSENT: Patient NAME OF THE PROCEDURE: [...] Groin precautions. Dennis Motley MD Cardiac Electrophysiology [facility] 11-19-2024 Note Patient: Solange schwartz Procedure Summary Date: 11/19/24 Room / Location: [facility] IRRIGATION LABORER 1 / [facility] HV VASCULAR LAB (Cath) Anesthesia Start: 1212 Anesthesia Stop: 1508 Procedure: Ablation a-fib paroxysmal Diagnosis: Paroxysmal atrial fibrillation (CMS/HCC) (Paroxysmal atrial fibrillation (CMS/HCC) [I48.0]) Providers: Denins Motley MD Responsible Provider: Prince Bangura MD [...] per anesthesia protocol. No notable events documented. [facility] 11-19-2024 Note Airway Date/Time: 11/19/2024 12:37 PM [...] 1 Number of other approaches attempted: 0 [facility] 11-19-2024 Note Patient: Solange schwartz Procedure Information Date/Time: 11/19/24 1200 Procedure: Ablation a-fib paroxysmal - PC APPROVED 10/28-12/26 Location: [facility] IRRIGATION LABORER 1 EP / [facility] HV VASCULAR LAB (Cath) Providers: Dennis Motley MD Relevant Problems Anesthesia (within normal limits) Cardio (+) Paroxysmal atrial fibrillation (CMS/HCC) Neuro/Psych (+) TIA (transient ischemic attack) (11 months ago) Circulatory (+) PFO (patent foramen ovale) PT 14.7 INR 1.15 Encounter Date: 11/19/24 Electrocardiogram, 12-lead Result Value Ventricular Rate 45 Atrial Rate 45 AK Interval 168 QRS DURATION 80 QT Interval 450 QTC CALCULATION(BAZETT) 389 P Revere 14 R-Revere 11 T Wave Revere 21 Impression Sinus bradycardia with marked sinus [...] Plan discussed with attending. Additional Equipment Requests [facility] 10-13-2024 Note [place] Electrophysiology Consult Note [place] Cardiology [facility] Reason for visit: HPI: Solange Lucas is a 39 y.o. year old with past medical history of CVA and PFO s/p closure at [facility] (Dr. Kanu Degroot) who has been followed [...] valve disease PCOS (polycystic ovarian syndrome) Stroke ([facility]) PSH: Past Surgical History: Procedure Laterality Date BACK SURGERY SECTION, CLASSIC TONSILECTOMY, ADENOIDECTOMY, BILATERAL MYRINGOTOMY AND TUBES SH: Social Determinants of Health Tobacco Use: Low Risk (10/13/2024) Patient History Smoking Tobacco Use: Never Smokeless Tobacco Use: Never Passive Exposure: Not on file Recent Concern: Tobacco Use - High Risk (07/31/2024) Received from [facility] Patient History Smoking Tobacco Use: Never Smokeless Tobacco Use: Current Passive Exposure: Not on file Alcohol Use: Not on file Financial Resource Strain: Not on file Food Insecurity: No Food Insecurity (07/31/2024) Received from [facility] Hunger Screening Within the past 12 months [...] on file Intimate Partner Violence: Unknown (12/18/2023) [place] Safety & Environment Fear of Current or [...] Normal diastolic functi (more content not included)... [facility] 09-30-2024 Miscellaneous Notes Pt S/P PFO closure [...] appt with EP first available. Thx slm After talking with pt she was told to stop the plavix this month. She will continue the ASA per VG unless you want her to D/C it? Appt made with EP 01/13/25.thx slm documented in this encounter [facility] 09-30-2024 Telephone encounter Note Pt S/P PFO [...] appt with EP first available. Thx slm [employer] 09-30-2024 Telephone encounter Note After talking with pt she was told to stop the plavix this month. She will continue the ASA per VG unless you want her to D/C it? Appt made with GRAEME 01/13/25.thx slm [facility] 09-02-2024 Note [place] Cardiology - [facility] Subjective Solange Lucas is a 39 y.o. year old female patient being seen for follow up [facility] ED today for palpitations. She had 14 day Holter monitor placed yesterday. She says Dr. Mcqueen ordered this because she had syncopal episode a few weeks ago while at a concert. She had 1-2 drinks the entire day. Denies chest pain but felt very SOB today. Denies lightheadedness prior to syncopal episode. She had transferred to [facility]iology after seeing us in 2023. [...] hair Acne Antepartum hypertension BMI 50.0-59.9, adult ([facility]) Encounter for sterilization Gestational hypertension, [...] On 12/17/2023 she was admitted to the [facility] after sustaining right arm weakness, difficulty speaking and facial droop. The symptoms resolved within 10 to 15 minutes of onset. During the symptoms, she FaceTime her mother who is a nurse and explained to her what was happening and she was taken to the emergency room at the [facility] where she was admitted and investigation [...] visit she had transferred her care to [facility] cardiology since one of her friends [...] gallop. Pulmonary: Ef (more content not included)... [facility] 08-27-2024 History of Present illness Narrative Images from the original note were not included. [facility] Stroke Network Telestroke Clinic Visit [address] [facility] [id number] Patient: Solange Lucas Date of : 1985 Encounter Date: 08/27/2024 Patient Care Team: Edward Mcqueen DO as PCP - General (Internal Medicine) ADELA Alejandre as Traffic Control Technician (Nurse Traffic Control Technician) Patient Location: home Patient Consent obtained: yes, Verbal Prior to beginning this clinical portion of this visit, the patient/family has consented to the use of this telemedicine E-visit and initiated the contact. They have also consented to using [employer] as a communications platform, understanding the privacy limitations, and telehealth and HIPAA waivers as established in the [facility] expansion of telehealth benefits under the 1135 waiver authority and the Coronavirus Preparedness and Response Supplemental Appropriations Act Dated September and as summarized in September 22, 2019 [facility] FAQ on the Coronavirus (COVID-19) public health emergency. The patient has an established relationship with vt and was last seen in January 2024. [...] Gestational diabetes mellitus Hypertension Migraines Morbid obesity ([facility]) Panic attacks PFO (patent foramen ovale) Sprain [...] 07/29/2018 Performed by Benita Sarabia MD at [facility] OR SECTION W/ TUBAL LIGATION 10/12/2021 COLPOSCOPY Intracardiac echocardiogram N/A 03/13/2024 Performed by Dante Degroot MD at [facility] CARDIAC CATH LABS PATENT FORAMEN OVALE CLOSURE 03/13/2024 Patent foramen ovale closure with cath/patch/ICE N/A 03/13/2024 Performed by Dante Degroot MD at [facility] CARDIAC CATH LABS TONSILLECTOMY Current Outpatient Medications [...] Inattention: 0=No abnormality Total: 0 NIHSS0 Modified Mcpherson Score: 0 Risk Factor Management: PFO s/p closure 03/2024 Assessment/Plan: Patient Active Problem List Diagnosis Acne Abnormal facial hair Gestational diabetes mellitus History of delivery Encounter for sterilization BMI 50.0-59.9, adult ([facility]) Gestational hypertension, third trimester Intrauterine [...] This note was completed using a voice topology teacher system. Every effort was made to ensure accuracy; however, inadvertent computerized topology teacher errors may be present Please note case was done in collaboration with: patient I have spent 25 minutes personally reviewing previous history, imaging, and performing a face to face real time video health assessment on this patient via camera. If you have any further questions please feel free to contact our office at [facility] [place]. This is a telemedicine visit. Verbal and/or [...] patient needs it documented in this encounter [employer] 08-24-2024 History of Present illness Narrative Reason [...] nursing note reviewed. Exam conducted with a pharmacy innovation assistant present. Vitals: Estimated body mass index is 29.29 kg/m as calculated from the following: Height as of this encounter: 5' 2 . Weight as of this encounter: 160 lb 1.9 oz. BP: 110/70 No LMP recorded (within weeks). ASSESSMENT & PLAN ICD-10-CM 1. Irregular menstrual cycle N92.6 2. Menorrhagia with irregular cycle N92.1 Patient was referred from [facility] for surgical management of irregular/heavy cycles. [...] Betito Srivastava DO documented in this encounter [facility] 07-31-2024 History of Present illness Narrative Solange Lucas Date of visit: 07/31/2024 Date of : 1985 Age: 39 y.o. Patient Active Problem List Diagnosis Acne Abnormal facial hair Gestational diabetes mellitus History of delivery Encounter for sterilization BMI 50.0-59.9, adult ([facility]) Gestational hypertension, third trimester Intrauterine PFO (patent [...] Gestational diabetes mellitus Hypertension Migraines Morbid obesity ([facility]) Panic attacks PFO (patent foramen ovale) Sprain of ankle, right TIA (transient ischemic attack) Tobacco abuse No data recorded No data recorded No data recorded Past Surgical History: Procedure Laterality Date BACK SURGERY 2008 disc shaved (bulging) and fused 2 of them together Was in college REPEAT WITH IUD INSERTION N/A 07/29/2018 Performed by Benita Sarabia MD at [facility] OR SECTION W/ TUBAL LIGATION 10/12/2021 COLPOSCOPY Intracardiac echocardiogram N/A 03/13/2024 Performed by Dante Degroot MD at [facility] CARDIAC CATH LABS PATENT FORAMEN OVALE CLOSURE 03/13/2024 Patent foramen ovale closure with cath/patch/ICE N/A 03/13/2024 Performed by Dante Degroot MD at [facility] CARDIAC CATH LABS TONSILLECTOMY Family History Problem [...] Interpersonal Safety: Unknown (12/18/2023) Received from [facility] Safety & Environment Fear of Current or [...] MCQUEEN DO Referring Physician: Edward Mcqueen DO [address] [place] [address] [facility] 07-30-2024 Miscellaneous Notes Called patient to remind them to bring their most current copy of their medication list with them to their appt. Patient verbalizes understanding. [facility] 07-30-2024 Telephone encounter Note Called patient to remind them to bring their most current copy of their medication list with them to their appt. Patient verbalizes understanding. [facility] 07-27-2024 Miscellaneous Notes Called patient to offer earlier availability on 08/04. Pt was not available; LVM to call back. Appointment no longer available. documented in this encounter [facility] 07-27-2024 Telephone encounter Note Called patient to offer earlier availability on 08/04. Pt was not available; LVM to call back. [facility] 07-27-2024 Telephone encounter Note Appointment no longer available. [facility] 07-16-2024 History of Present illness Narrative Images from the original note were not included. PROBLEM VISIT Solange Lucas is 39 y.o. a patient of [facility] [employer] [facility] for growth by her rectum Last [...] MA,07/16/2024 2:41 PM documented in this encounter [facility] 06-17-2024 Miscellaneous Notes Pt called in to [facility] stating last night around 9:30pm she [...] angela 2 weeks Have her seen in [facility] Called and spoke to pt with PKR recommendations. Pt v/u. Angela ordered and scheduled next avail appt at [facility]. documented in this encounter [facility] 06-17-2024 Telephone encounter Note Pt called in to [facility] stating last night around 9:30pm she could feel her heart racing and she did not feel right. She didn't think too much off it and went to bed. She said her fit bit stated signs of AFIB were detected and hear heart rate ranged from 44-180. Today she feels okay just tired. Sending message to PKR for recommendations. [facility] 06-17-2024 Telephone encounter Note Let's get angela 2 weeks Have her seen in [facility] 06-17-2024 Telephone encounter Note Called and spoke to pt with PKR recommendations. Pt v/u. Mcot ordered and scheduled next avail appt at [facility]. [facility] [employer] [facility] 05-26-2024 Miscellaneous Notes Per June 2024 recall, patient is due for follow up with Dr. Healy. Please call and schedule patient. Spoke with patient and scheduled appt documented in this encounter [facility] 05-26-2024 Telephone encounter Note Per June 2024 recall, patient is due for follow up with Dr. Healy. Please call and schedule patient. [facility] 05-26-2024 Telephone encounter Note Spoke with patient and scheduled appt [facility] 03-23-2024 History of Present illness Narrative Images from the original note were not included. [facility] Solange Lucas Date of visit: 03/23/2024 Date of [...] delivery Encounter for sterilization BMI 50.0-59.9, adult ([facility]) Gestational hypertension, third trimester Intrauterine PFO (patent foramen ovale) TIA (transient ischemic attack) Past Medical History: Diagnosis Date Abnormal Pap smear of cervix Anxiety Atrial septal defect Gestational diabetes mellitus Hypertension Migraines Morbid obesity ([facility]) Panic attacks PFO (patent foramen ovale) Sprain of ankle, right TIA (transient ischemic attack) Tobacco abuse Past Surgical History: Procedure Laterality Date BACK SURGERY 2008 disc shaved (bulging) and fused 2 of them together Was in college REPEAT WITH IUD INSERTION N/A 07/29/2018 Performed by Benita Sarabia MD at [facility] OR SECTION W/ TUBAL LIGATION 10/12/2021 COLPOSCOPY Intracardiac echocardiogram N/A 03/13/2024 Performed by Dante Degroot MD at [facility] CARDIAC CATH LABS Patent foramen ovale closure with cath/patch/ICE N/A 03/13/2024 Performed by Dnate Degroot MD at [facility] CARDIAC CATH LABS TONSILLECTOMY Family History Problem [...] Interpersonal Safety: Unknown (12/18/2023) Received from [facility] Safety & Environment Fear of Current or [...] Menorrhagia, anemia -Encouraged follow-up w/ PCP and STEEL FIXER given current need for DAPT with known [...] MCQUEEN DO Referring Physician: Edward Mcqueen DO [address] [place] [address] CRISTINA Saba 03/23/24 1122 documented in this encounter [facility] 03-11-2024 History of Present illness Narrative Called patient to advise her she will need a test prior to her PFO closure procedure, she states she had a tubal. Spoke with irrigation laborer staff, no need for test given patient's history. Will update her chart to reflect her surgical history. Per [facility] csection with tubal performed on 10/12/21. Order for test cancelled. documented in this encounter [facility] 03-05-2024 Miscellaneous Notes Called pt to r/s time of PFO closure on 03-12 to 2:30 and pt to arrive at 1:00p. Pt v/u. Went over reminder info listed below with pt. Reminder call for patient's upcoming PFO Closure procedure. Scheduled on: 03-12-24 at 2:30 Arrival time: 1:00p NPO after midnight the night before. Meds to hold: none Labs completed: no-reminded pt Needs electric mule driver home once discharged. documented in this encounter [facility] 03-05-2024 Telephone encounter Note Called pt [...] hold: none Labs completed: no-reminded pt Needs electric mule driver home once discharged. [facility] 02-17-2024 History of Present illness Narrative Images from the original note were not included. [facility] Structural heart clinic TELEHEALTH [...] Gestational diabetes mellitus Hypertension Migraines Morbid obesity ([facility]) Panic attacks PFO (patent foramen ovale) Sprain [...] Interpersonal Safety: Unknown (12/18/2023) Received from [facility] Safety & Environment Fear of Current or [...] Dr. Tamika Martinez documented in this encounter [facility] 01-29-2024 History of Present illness Narrative Images from the original note were not included. [facility] Stroke Network Telestroke Clinic Visit [address] [facility] [address] Patient: Solange Lucas Date of : 1985 Encounter Date: 01/29/2024 Patient Care Team: Edward Mcqueen DO as PCP - General (Internal Medicine) ADELA Alejandre as Traffic Control Technician (Midwifery) Patient Location: home Patient Consent obtained: yes, Verbal Prior to beginning this clinical portion of this visit, the patient/family has consented to the use of this telemedicine E-visit and initiated the contact. They have also consented to using [employer] as a communications platform, understanding the privacy limitations, and telehealth and HIPAA waivers as established in the [facility] expansion of telehealth benefits under the 1135 waiver authority and the Coronavirus Preparedness and Response Supplemental Appropriations Act Dated September and as summarized in September 22, 2019 [facility] FAQ on the Coronavirus (COVID-19) public health emergency. The patient was last seen by telestroke at [facility] in December 2023 . Reason for Visit: recent TIA x2 History of Present Illness: Subjective: Solange Lucas is a right handed 38 y.o. female with past medical history significant for HTN and PFO who was hospitalized in December 2023 for TIA. Patient had initially presented with right arm weakness and expressive aphasia to [facility] room. Patient was subsequently admitted and [...] Gestational diabetes mellitus Hypertension Migraines Morbid obesity ([facility]) Panic attacks Sprain of ankle, right Tobacco [...] 07/29/2018 Performed by Benita Sarabia MD at [facility] OR SECTION COLPOSCOPY TONSILLECTOMY Current Outpatient Medications [...] 0=No abnormality Total: 0 NIHSS 0 Modified Mcpherson Score: 0 Risk Factor Management: Hypertension target range 130-140/70-80 Lipid range - LDL < 70 and checked every 6 months, fasting Diabetes - HgB A1C <7 Assessment/Plan: Patient Active Problem List Diagnosis Acne Abnormal facial hair Gestational diabetes mellitus History of delivery Encounter for sterilization BMI 50.0-59.9, adult ([facility]) Gestational hypertension, third trimester Intrauterine Patient is a 38-year-old female who sustained a TIA that localized to the left MCA distribution at [facility] in December 26, 2023 with a [...] This note was completed using a voice topology teacher system. Every effort was made to ensure accuracy; however, inadvertent computerized topology teacher errors may be present Please note case was done in collaboration with: patient I have spent 30 minutes personally reviewing previous history, imaging, and performing a face to face real time video health assessment on this patient via camera. If you have any further questions please feel free to contact our office at [facility]. This is a telemedicine visit. Verbal and/or [...] patient needs it documented in this encounter [employer] 01-29-2024 Instructions Blane Healy MD - 01/29/2024 3:00 PM EDT Continue ASA and statin. Complete event monitor If monitor is negative, reasonable to pursue PFO closure If event monitor is positive for AFib/flutter, will start patient on AC Followup in approx. 5-6 months. Continue to followup with cardiology. documented in this encounter [employer] 12-26-2023 Miscellaneous Notes ----- Message from ANA [...] the phone as well as sent via [employer]. [facility] Structural Heart Clinic: [facility] Procedure: Transesophageal Echocardiogram Testing Location: [facility] ([address] [place] [address]) Date/Time of Procedure: 01/13/2024 at 08:45 am [...] only. Other Instructions: [x] Must have a electric mule driver as you will be unable to drive once discharged Important Information Notify the [facility] of any illness, infection or COVID symptoms or a COVID positive result immediately at [phone] Please notify the [facility] if [...] please call the [facility] at [phone] documented in this encounter [facility] 12-26-2023 Telephone encounter Note ----- Message [...] please just help arrange for the [facility]. [facility] 12-26-2023 Telephone encounter Note Left message for pt [facility] 12-26-2023 Telephone encounter Note Images from the original note were not included. Pt called back and scheduled [facility]. Instructed below were given verbally over the phone as well as sent via [employer]. [facility] Structural [facility] Clinic: [facility] Procedure: Transesophageal Echocardiogram Testing Location: [facility] ([address] [place] [address]) Date/Time of Procedure: 01/13/2024 at 08:45 am [...] only. Other Instructions: [x] Must have a electric mule driver as you will be unable to drive once discharged Important Information Notify the [facility] of any illness, infection or COVID symptoms or a COVID positive result immediately at [phone] Please notify the [facility] if [...] please call the [facility] at [phone] [facility] 12-26-2023 History of Present illness Narrative Self referral for TIA, suspected PFO/ASD. Prior evaluation with Dr. Palomino, [facility]. Chart reviewed, spoke with PKR. Will proceed with EMMA, 30 day wireless tele, and hypercoag testing (if not already done). Follow-up in clinic after that. Will get all records/images from [facility]. ANA CRISTINA Saba 12/26/23 0949 documented in this encounter [facility] 12-18-2023 Miscellaneous Notes OFE Weiss [facility] Stroke Scheduling; P Pns Stroke Supervisor Rolling Room; High risk tia. Follow up telemedicine in 4 weeks with dangelo healy fellow. 30 day event monitor on discharge. Also with pfo. May need closure going to see [facility] cardiology to discuss. Called patient and scheduled video visit with Dr. Healy on 01/29/24 at 1500 documented in this encounter [facility] 12-18-2023 Telephone encounter Note OFE Weiss P Pns Stroke Scheduling; P Pns Stroke Supervisor Rolling Room; High risk tia. Follow up telemedicine in 4 weeks with dangelo healy fellow. 30 day event monitor on discharge. Also with pfo. May need closure going to see [facility] cardiology to discuss. Called patient and scheduled video visit with Dr. Healy on 01/29/24 at 1500 [facility] 12-18-2023 Miscellaneous Notes ----- Message from OFE Weiss sent at 12/18/2023 10:36 AM EDT ----- Regarding: follow up High risk tia. Follow up telemedicine in 4 weeks with dangelo healy fellow. 30 day event monitor on discharge. Also with pfo. May need closure going to see [facility] cardiology to discuss. Pt scheduled 01/29/24 documented in this encounter [facility] 12-18-2023 Telephone encounter Note ----- Message from OFE Weiss sent at 12/18/2023 10:36 AM EDT ----- Regarding: follow up High risk tia. Follow up telemedicine in 4 weeks with dangelo healy fellow. 30 day event monitor on discharge. Also with pfo. May need closure going to see [facility] cardiology to discuss. [facility] 12-18-2023 Telephone encounter Note Pt scheduled 01/29/24 [facility] 05-03-2023 Evaluation note Encounter Date Diagnosis [...] disorder, 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) [employer] Other 10-16-2023 Evaluation note* Encounter Date Diagnosis Assessment Notes Treatment Notes Treatment Clinical Notes Apr, Mild episode of recurrent major depressive disorder (ICD-10 - F33.0) [employer] Other 10-03-2023 Evaluation note* Encounter Date Diagnosis [...] Treat underlying condition and insomnia should improve [employer] Other 02-22-2023 Evaluation note* Encounter Date Diagnosis Assessment Notes Treatment Notes Treatment Clinical Notes Aug, Pharyngitis due to Streptococcus species (ICD-10 - J02.0) Gargle w/ salt water, tylenol and rest [employer] Other 04-09-2022 History of Present illness Narrative* [...] Message received from ADELA Caceres who is coordinator cardiopulmonary services today that my patient has arrived to the unitand she has elevated blood pressures. Hypertension protocol being started and Dr Panda would like to proceed with her repeat section soon. 0998 this write leaves my office and enroute to [place], [facility] Work Phone: 1(497) 359-110803-19-2022 History of Present illness Narrative* Shanel Raymundo RN - 09/23/2021 3:40 PM EDT Pt here for scheduled NST. Pt states she is insulin controlled gestational diabetic and sees [facility] attir satellite office. Pt reports + movement today. Pt denies vaginal bleeding or leaking offluid. Pt states that she sometimes has back pain if she stands for too long, pt denies pain currently. Pt denies pain or burning when urinating. Pt denies headache or blurred vision. marker button given. documented in this [facility] Phone: [phone]) 604-668612-08-2021 Evaluation note* Encounter Date Diagnosis Assessment Notes [...] Patient care instructions given in writting by [facility] Care At Home document. [employer] Other Evaluation note* Diagnosis Diet controlled gestational diabetes mellitus (GDM) in third trimester documented in this encounter [employer] Phone: [email or web address] note* Diagnosis Diet controlled gestational diabetes mellitus (GDM) in third trimester documented in this encounter [employer] Phone: [email or web address] note* Diagnosis Diet controlled gestational diabetes mellitus (GDM) in third trimester documented in this encounter [employer] Phone: [email or web address] note* Diagnosis Diet controlled gestational diabetes mellitus (GDM) in third trimester documented in this encounter [employer] Phone: [email or web address] note* Diagnosis Abdominal pain- Primary Abdominal pain, unspecified site Born by section Hypertension affecting in first trimester Hypertension affecting in third trimester documented in this encounter [employer] Phone: [email or web address] noteNo InformationNort [employer] Other Evaluation note* Diagnosis Onset Date Resolution Status Anemia acute PFO (patent foramen ovale) a cute TIA (transient ischemic attack) acute Type 2 diabetes mellitus with hyperglycemia [facility] Work Phone: Evaluation note* Diagnosis Inclusion cyst- Primary Sebaceous cyst documented in this encounter [facility] Healthcare[facility] note* Diagnosis Palpitations- Primary PFO (patent foramen ovale) Ostium secundum type atrial septal defect S/P percutaneous patent foramen ovale closure Other postprocedural status TIA (transient ischemic attack) Unspecified transient cerebral ischemia documented in this encounter [facility]* Diagnosis Onset Date Resolution Status Admit Date Anemia acute August 18, 2024 1:20pm Bradycardia acute August 1:20pm Fatigue acute August 18, 2024 1:20pm [facility] Work Phone: Evaluation note* Diagnosis PFO (patent foramen ovale)- Primary Ostium secundum type atrial septal defect TIA (transient ischemic attack) Unspecified transient cerebral ischemia Palpitations documented in this encounter [facility] System[facility]* Diagnosis TIA (transient ischemic attack)- Primary Unspecified transient cerebral ischemia documented in this encounter [facility]* Diagnosis TIA (transient ischemic attack)- Primary Unspecified transient cerebral ischemia documented in this encounter [facility]* Diagnosis PFO (patent foramen ovale)- Primary Ostium secundum type atrial septal defect PFO (patent foramen ovale)- Primary Ostium secundum type atrial septal defect History of delivery PFO (patent foramen ovale) Ostium secundum type atrial septal defect documented in this encounter [facility]* Diagnosis PFO (patent foramen ovale)- Primary Ostium secundum type atrial septal defect S/P percutaneous patent foramen ovale closure Other postprocedural status documented in this encounter [facility]* Diagnosis Palpitations- Primary documented in this encounter [facility]* Diagnosis Irregular menstrual cycle Menorrhagia with irregular cycle PCOS (polycystic ovarian syndrome) Polycystic ovaries [facility] (loss of consciousness) ([facility])- Primary Other alteration of consciousness documented in this encounter [facility]* Diagnosis Paroxysmal A-fib ([facility])- Primary TIA (transient ischemic attack) Unspecified transient cerebral ischemia documented in this encounter [facility] SystemEvaluation noteNo assessment information available [facility] Work Phone: History general Narrative - Reported* Type Description Date Medical History anxiety Surgical History back surgery Surgical History tonsillectomy Surgical History C section Surgical History PE tubes Surgical History adnoidectomy Hospitalization History child [facility] Other [facility] Narrative - Reported* Type Description Date [...] History child Hospitalization History SEE SURGICAL HX [facility] Other [facility] Narrative - Reported* Type Description Date [...] History child Hospitalization History SEE SURGICAL HX [facility] Other Hospital Discharge instructions* Attachments The following attachments cannot be sent through Care Everywhere. * Section: Post-op (Indian) * (Indian) * Video: Caring for Yourself After Delivery (Indian) * : Exercises (Indian) * Depression: (Indian) * Parenting: Stress and Infants (Indian) [facility]: InstructionsNot on filedocumented in this [facility] filed[facility]ocumented in [facility] filedocumented in this [facility] filedocumented in this [facility] filedocument[facility] filedocument[facility] on filedocumented in this encounter [facility] Summary Purpose Family History No Family [...] mellitus with hyperglycemia Chief Complaint Admit Date [facility] ER:Syncope August 18, 2024 1:20pm Reason for Visit Admit Date Anemia August 18, 2024 1:20pm Bradycardia August 18, 2024 1:20pm Fatigue August 18, 2024 1:20pm Chief Complaint Admit Date Amb Documentation September 03, 2024 9:34am neck swelling November 16, 2024 3:32p m Reason for Referral Specialty Diagnoses / Procedures Referred By Leila virgen Referred To Contact Diagnoses PFO (patent foramen ovale) S/P percutaneous patent foramen ovale closure Procedures Echo complete W/O contrast Mick Jett PA [address] [place] [address] [place] [address] Referral ID Status Reason Start Date Expiration Date V isits Requested Visits Authorized [id number] Pending Review 03/23/2024 03/23/2025 1 1 Specialty Diagnoses / Procedures Referred By Leila virgen Referred To Contact Diagnoses PFO (patent foramen ovale) TIA (transient ischemic attack) Palpitations Procedures Wireless Telemetry (In Office) Mick Jett PA [address] [place] [address] [place] [address] Referral ID Status Reason Start Date Expiration Date V isits Requested Visits Authorized [id number] Pending Review 12/26/2023 12/25/2024 1 1 Additional Source Comments INFORMATION SOURCE (unrecogn ized section and content) DATE CREATED AUTHOR 12/31/2017 [facility] DATE CREATED AUTHOR AUTHOR'S ORGANIZ ATION 05/15/2021 [facility] DATE CREATED AUTHOR AUTHOR'S ORGANIZ ATION 06/21/2021 [facility] DATE CREATED AUTHOR AUTHOR'S ORGANIZ ATION 09/27/2021 [facility] dical Specialist DATE CREATED AUTHOR AUTHOR'S ORGANIZ ATION 10/16/2021 [facility] DATE CREATED AUTHOR AUTHOR'S ORGANIZ ATION 08/28/2022 [facility] DATE CREATED AUTHOR AUTHOR'S ORGANIZ ATION 04/28/2024 [facility] DATE CREATED AUTHOR AUTHOR'S ORGANIZ ATION 06/21/2024 [facility] DATE CREATED AUTHOR AUTHOR'S ORGANIZ ATION 08/25/2024 [facility] dical Specialists EPIC DATE CREATED AUTHOR AUTHOR'S ORGANIZ ATION 08/29/2024 [facility] DATE CREATED AUTHOR AUTHOR'S ORGANIZ ATION 04/15/2025 [facility] Reason for Visit (unrecogniz ed section and content) Reason Comments Non-stress Test Reason Comments Abdominal Pain Specialty Diagnoses / Procedures Referred By Contac t Referred To Contact Diagnoses Abdominal pain Hypertension affecting in first trimester Hypertension affecting in third trimester Bryanna Barth APRN - [place] [address] [place] [address] [facility] [address] [place] [address] Referral ID Status Reason Start Date Expiration Date Visits Re quested Visits Authorized [id number] 1 1 Reason Comments Follow-up ov palps [...] Care Teams (unrecognized sec tion and content) Child Adolescent Care Relationship Specialty Start Date End Date Edward Mcqueen DO [address] [place] [phone] PCP - General Internal Medicine 06/21/21 Child Adolescent Care Relationship Specialty Start Date End Date Edward Mcqeuen DO [address] [place] [facility] [phone] PCP - General Internal Medicine 06/21/21 Child Adolescent Care Relationship Specialty Start Date End Date Edward Mcqueen DO [address] [place] [address] PCP - General Internal Medicine 06/21/21 Child Adolescent Care Relationship Specialty Start Date End Date Edward Mcqueen DO [address] [place] [facility] [phone] PCP - General Internal Medicine 06/21/21 Child Adolescent Care Relationship Specialty Start Date End Date Edward Mcqueen DO [address] [place] [address] PCP - General Internal Medicine 06/21/21 Child Adolescent Care Relationship Specialty Start Date End Date Edward Mcqueen DO [address] [place] [facility] [address] PCP - General Internal Medicine 06/21/21 Team [...] December 23, 2023 End: December 23, 2023 Child Adolescent Care Relationship Specialty Start Date End Date Edward Mcqueen DO [address] [place] [address] PCP - General Internal Medicine 05/19/18 Child Adolescent Care Relationship Specialty Start Date End Date Edward Mcqueen DO [address] [place] [address] PCP - General Internal Medicine 05/19/18 Child Adolescent Care Relationship Specialty Start Date End Date Edward Mcqueen DO [address] [place] [phone] PCP - General Internal Medicine 05/19/18 Team Status: Active Member Role Status Dates Edward Mcqueen DO Primary Care Provider Active Start: August 17, 2024 Nathanael Morales DO Attending Provider Active S tart: August 17, 2024 Team Status: Inactive Member Role Status Dates Edward Mcqueen DO Primary Care Provide r, Attending Provider Active Start: August 18, 2024 End: August 18, 2024 Child Adolescent Care Relationship Specialty Start Date End Date Edward Mcqueen DO [address] [place] [address] PCP - General Internal Medicine 05/19/18 Child Adolescent Care Relationship Specialty Start Date End Date Edward Mcqueen DO [address] [place] [address] PCP - General Internal Medicine 05/19/18 Child Adolescent Care Relationship Specialty Start Date End Date Edward Mcqueen DO [address] [place] [address] PCP - General Internal Medicine 05/19/18 Child Adolescent Care Relationship Specialty Start Date End Date Edward Mcqueen DO [address] [place] [address] PCP - General Internal Medicine 05/19/18 Child Adolescent Care Relationship Specialty Start Date End Date Edward Mcqueen DO [address] [place] [address] PCP - General Internal Medicine 05/19/18 Child Adolescent Care Relationship Specialty Start Date End Date Edward Mcqueen DO [address] [place] [address] PCP - General Internal Medicine 05/19/18 Child Adolescent Care Relationship Specialty Start Date End Date Edward Mcqueen DO [address] [place] [address] PCP - General Internal Medicine 05/19/18 Child Adolescent Care Relationship Specialty Start Date End Date Edward Mcqueen DO [address] [place] [address] PCP - General Internal Medicine 05/19/18 Team [...] November 16, 2024 End: November 16, 2024 Child Adolescent Care Relationship Specialty Start Date End Date Edward Mcqueen DO [employer] [place] [address] PCP - General Internal Medicine 05/19/18 Ordered Prescriptions (unrec ognized section and content) Prescription Sig Dispensed Refills Start Date End Da docusate sodium (COLACE) 100 MG capsule Take [...] (Stopped - Provider: Ruben Mccabe APRN - FORMING AND ASSEMBLING SUPERVISOR) docusate sodium (COLACE) capsule 100 mg 100 mg, Oral, 2 TIMES DAILY, First dose on Denisha 10/12/21 at 1345, Until Discontinued, Do not crush or break., 1410 (Given - Provider: Milla Davis RN)2151 (Given - Provider: Lilo A [place], RN) 0807 (Given - Provider: Nohemy Nuñez RN)2046 (Given - Provider: Elif Prince, RN) 0930 (Given - Provider: Leda Glez RN)2100 (Due) enoxaparin (LOVENOX) injection 60 mg 60 mg, SubCUTAneous, EVERY 24 HOURS, First dose on Sat10/13/21 at 0130, Until Discontinued, 0112 (Given - Provider: Lilo Kulkarni RN) 015 (Given - Provider: Elif Prince RN) famotidine [...] Bag - Provider: Ruben Mccabe APRN - FORMING AND ASSEMBLING SUPERVISOR - Comment: given over 60 minutes.) ibuprofen [...] 2 Units 350 and above 3 Units 2146 (Given - Provider: Lilo Kulkarni RN - [...] Lilo Kulkarni, SHANON)0625 (Given - Provider: Lilo Kulkarni, SHANON)1126 (Given - Provider: Nohemy Nuñez RN) labetalol [...] Reason: Other - Comment: IV removed)2100 (Due) ddngwvk-cuksrr-yjeqc pertussis (BOOSTRIX) injection 0.5 mL 0.5 mL, [...] Provider: Milla Davis RN)1101 (NoRateChange - Provider: ESTHER Rocha CRNA) lactated ringers infusion IntraVENous, at 50 mL/hr, CONTINUOUS, Starting on Denisha 10/12/21 at 1345, 1256 (Rate/Dose Change - Provider: Milla Davis RN)2150 (Rate/Dose Change - Provider: Lilo Kulkarni RN)2245 (Rate/Dose Change - Provider: Lilo Kulkarni RN) 0522 (Rate/Dose Change - Provider: Lilo Kulkarni RN) 1127 (Stopped - Provider: Leda Glez RN) magnesium sulfate (05367 mg/500mL infusion) (CANCELED) 2,000 mg/hr (50 mL/hr), [...] Provider: Milla Davis RN)1101 (NoRateChange - Provider: ESTHER Rocha CRNA) magnesium sulfate (58960 mg/500mL infusion) () 1,000 mg/hr (25 mL/hr), [...] 250 mcg, IntraMUSCular, PRN, Starting on Denisha 4/7/22 at 1323, Until Discontinued, bleeding, May repeat [...] RN) 104 (See Alternative - Provider: Nohemy Nuñez RN)2046 [...] BE BASED ON THE PRIMARY CLINICAL RECORDS. [employer] provides no warranty or guarantee of the accuracy or completeness of information in this document.
--- OUTSIDE RECORDS SUMMARY | 2025-04-24 12:37 | XMS_ITS | Encounter Summary ---
Author Organization [facility] Address [id number] [address] [place] [address] Care Team Providers Care Branch Controller Name Role Phone Edward Page Primary Care Provider [phone] Encounter Details Date Type Department Care Team (Late st Contact Info) Description 09/30/2024 Orders Only [facility] [address] [place] [address] External, Scanning Provider Social History Tobacco Use Types Packs/Day Years Used Date Smoking Tobacco: Never Smokeless Tobacco: Current Comments:Nicotine pouch, occ asionally. Alcohol Use Standard Drinks/Week Comments Not Currently [...] on file Sexual Orientation Not on file documented as of this encounter Plan of Treatment Not on file documented as of this encounter Procedures Procedure Name Priority Date/Time Associated Diagnosis Comments EVENT MONITOR Routine 08/31/2024 10:14 AM EST documented in this encounter Results * Event monitor (08/31/2024 10:14 AM EST) Anatomical Region Laterality Modality Chest N/A Other us Scanning Provider External [facility] O RDERABLES Final Result documented in this encounter Visit Diagnoses Not on filedocumented in this encounter Care Teams Branch Controller Relationship Specialty Start Date End Date Edward Page DO [address] [place] [address] PCP - General Internal Medicine 05/19/18 documented as of this encounter
--- OUTSIDE RECORDS SUMMARY | 2025-04-24 12:37 | XMS_ITS | Clinical Summary ---
Author Organization [facility] Address [address], [address] [place] [address] Care Team Providers Care Administrative Clerk Name Role Phone Edward Page DO Primary Care Provider [phone] Allergies Active Allergy Reactions Criticality Noted Date Comments Penicillins Hives 04/19/2021 Medications escitalopram (LEXAPRO) 20 MG tablet Take 20 mg by mouth daily Active Cholecalciferol (VITAMIN D3) 25 MCG TABS 1 Active Vit-Fe Fumarate-FA ( VITAMINS PO) Take by mouth Act demario ibuprofen (ADVIL;MOTRIN) 800 MG tablet Take 1 tablet by mouth every 8 hours 120 tablet 3 2 Active lansinoh lanolin CREA ointment Apply 1 applicator topically every hour as needed for Dry Skin (nipple discomfort) 1 each 3 2 Active docusate sodium (COLACE) 100 MG capsule Take 1 capsule by mouth 2 times daily 60 capsule 2 2 Active Active Problems Patient Care Coordination No te Formatting of this note migh t be different from the original. ALIREZA: 10/25/21 per ultrasound on 03/22/21 R C/S with salpingectomy 10/18/21 @ 0730 Martine/Alton CANO 10/17/21 @ 1400 Salpingectomy approved 07/20/21 Problem Noted Date Diagnosed Date Abdominal pain 10/12/2021 Hypertension affecting in first trimes ter 10/12/2021 Hypertension affecting in third trimes ter 10/12/2021 Family History Medical History Relation Name Comments Hypertension Father Diabetes Mother Lung Cancer Paternal Grandfather Relation Name Status Comments Father Alive Mother Alive Paternal Grandfather Social History Tobacco Use Types Packs/Day Years Used Date Smoking Tobacco: Never Smokeless Tobacco: Never Alcohol Use Standard Drinks/Week Comments Not Currently 0 (1 standard drink = 0.6 oz pur e alcohol) Comments No Sex and Gender Information Value Date Recorded Sex Assigned at Not on file Legal Sex Female 6:00 PM EST Gender Identity Not on file Sexual Orientation Not on file Last Filed Vital Signs Vital Sign Reading Time Taken Comments Blood Pressure 119/75 10/14/2021 7:24 AM EDT Pulse 67 10/14/2021 7:24 AM EDT Temperature 36.3 C (97.4 F) 10/14/2021 7:24 AM EDT Respiratory Rate 16 10/14/2021 7:24 AM EDT Oxygen Saturation 96% 10/13/2021 6:01 AM EDT Inhaled Oxygen Concentration - - Weight 129.3 kg (285 lb) 10/12/2021 10:22 AM EDT Height 157.5 cm (5' 2 ) 09/30/2021 2:03 PM EDT Body Mass Index 52.13 09/30/2021 2:03 PM EDT Plan of Treatment Not on file Insurance [facility] Advance Directives * Full Code (Latest Code Status on File) Date Activated Date Inactivated Comments 10/12/2021 9:23 AM 10/12/2021 1:23 PM Care Teams Administrative Clerk Relationship Specialty Start Date End Date Edward Page DO [facility] [place] [address] PCP - General Internal Medicine 06/21/21
--- OUTSIDE RECORDS SUMMARY | 2025-04-24 12:37 | XMS_ITS | Encounter Summary ---
Author Organization [facility] Address [id number] [address] [place] [address] Care Team Providers Care Bean Picker Machine Operator Name Role Phone Edward Page DO Primary Care Provider Encounter Details Date Type Department Care Team (Late st Contact Info) Description 03/11/2024 Orders Only [facility] [address] [place] [phone] Siri Jett PA [address] [address] PFO (patent foramen ovale) Social History Tobacco Use Types Packs/Day Years Used Date Smoking Tobacco: Never Comments:Once a week Alcohol Use Standard Drinks/Week Comments No 0 (1 standard drink = 0.6 oz pur e alcohol) Childcare Answer Date Recorded Childcare Unknown 12/17/2018 Employment Answer Date Recorded Employment Unknown 12/17/2018 Purpose - Life Answer Date Recorded Purpose [...] Procedure Name Priority Date/Time Associated Diagnosis Comments CBC (NO DIFF) Routine 03/07/2024 PFO (patent foramen ovale) BASIC METABOLIC PANEL Routine 03/07/2024 PFO (patent foramen ovale) documented in this encounter Results * Basic Metabolic Panel (03/07/2024) External Anion Gap 11.2 [facility] External Blood Urea Nitrogen Bun 14.0 [facility] External Calcium Ca 8.4 [facility] External Chloride 107 [facility] External Co2 / Carbon Dioxide 27.5 [facility] External Creatinine 0.61 [facility] External Glucose Fasting Or Random (Fbs) 91 [facility] External Potassium K 3.7 [facility] External Sodium Na 142 [facility] 03/07/2024 Siri DE LA PAZ LAB BLOOD ORDERABLES Final R esult Performing Organization Address City/[facility]/ZIP Co de Phone Number [facility] * CBC (03/07/2024) External Hematocrit Hct 31.5 [facility] External Hemoglobin 9.6 [facility] External Mpv 9.9 [facility] External Platelet Count 273 [facility] External Rbc Count 4.33 [facility] External Rdw 16.1 [facility] External Wbc Count 5.0 [facility] External Mcv 72.7 [facility] External MCH 22.2 [facility] External Mchc 30.5 [facility] 03/07/2024 Siri DE LA PAZ LAB BLOOD ORDERABLES Final R esult [facility] documented in this encounter Visit Diagnoses Diagnosis PFO (patent foramen ovale) Ostium secundum type atrial septal defect documented in this encounter Care Teams Bean Picker Machine Operator Relationship Specialty Start Date End Date Edward Page DO [address] [place] [address] PCP - General Internal Medicine 05/19/18 documented as of this encounter
--- OUTSIDE RECORDS SUMMARY | 2025-04-24 12:38 | XMS_ITS | Encounter Summary ---
Author Organization [facility] tem Address [id number] [address] [place] [address] Care Team Providers Care Winter Intern Name Role Phone Edward Page Primary Care Provider Encounter Details Date Type Department Care Team (Late st Contact Info) Description 06/14/2021 Orders Only Maternal- Medicine at [facility] [address] [facility] [place] [phone] Linda Suresh, RN Single umbilical artery affecting management of mother in cueto , antepartum; Choroid plexus cyst of fetus affecting care of mother, antepartum, single or unspecified fetus Social History Tobacco Use Types Packs/Day Years Used Date Smoking Tobacco: Never Smokeless Tobacco: Current Chew Comments:Once a week Alcohol Use Standard Drinks/Week Comments No 0 (1 standard drink = 0.6 oz pur e alcohol) Childcare Answer Date Recorded Childcare Unknown 12/17/2018 Employment Answer Date Recorded Employment Unknown 12/17/2018 Purpose - Life Answer Date Recorded Purpose and direction in life Unknown Comments Yes Sex and Gender Information Value Date Recorded Sex Assigned at Not on file Legal Sex Female 11:32 AM EDT Gender Identity Not on file Sexual Orientation Not on file COVID-19 Exposure Response Date Recorded In the last month, have you been in contact with someone who was confirmed or suspected to have Coronavirus / COVID-19? No / Unsure 06/08/2021 9:45 AM EST documented as of this encounter Plan of Treatment Not on file documented as of this encounter Procedures Procedure Name Priority Date/Time Associated Diagnosis Comments FREE CELL DNA (NON-[facility] SEND OUT) Routine 06/08/2021 Single umbilical artery affecting management of mother in cueto , antepartum Choroid plexus cyst of fetus affecting care of mother, antepartum, single or unspecified fetus documented in this encounter Results * Free Cell DNA (06/08/2021) Free Cell DNA SEE REPORT MANUALLY TRANSCRIBED RESULTS 06/08/2021 us Ben Levine MD LAB BLOOD ORDERABLES Final Resul t MANUALLY TRANSCRIBED RESULTS documented in this encounter Visit Diagnoses Diagnosis Single umbilical artery affecting management of mother in cueto , antepartum Choroid plexus cyst of fetus affecting care of mother, antepartum, single or unspecified fetus documented in this encounter Care Teams Winter Intern Relationship Specialty Start Date End Date Edward Page DO [address] [place] [address] PCP - General Internal Medicine 05/19/18 documented as of this encounter
--- OUTSIDE RECORDS SUMMARY | 2025-04-24 12:38 | XMS_ITS | Encounter Summary ---
Author Organization [facility] [facility] tem Address [id number] [address] [place] [address] Care Team Providers Care Bilingual Administrative Assistant Name Role Phone Edward Page DO Primary Care Provider [phone] Encounter Details Date Type Department Care Team (Late st Contact Info) Description 10/26/2021 Documentation Maternal- Medicine at [facility] [address] [facility] [place] [address] Rosanna Pond, RN Social History Tobacco Use Types Packs/Day Years [...] Exposure Response Date Recorded In the last 10 days, have yo u been in contact with someone who was confirmed or suspected to have Coronavirus/COVID-19? No / Unsure 09/28/2021 12:59 PM EDT documented as of this encounter Plan of Treatment Not on file documented as of this encounter Visit Diagnoses Not on filedocumented in this encounter Care Teams Bilingual Administrative Assistant Relationship Specialty Start Date End Date Edward Page DO [facility] [place] [address] PCP - General Internal Medicine 05/19/18 documented as of this encounter
--- OUTSIDE RECORDS SUMMARY | 2025-04-24 12:38 | XMS_ITS | Encounter Summary ---
Author Organization [facility] Address [address], [address] [place] [address] Care Team Providers Care Peach Grower Name Role Phone Edward Page DO Primary Care Provider [phone] Encounter Details Date Type Department Care Team (Late st Contact Info) Description 10/27/2021 FollowUp Telephone Encounter [facility] Labor and Delivery [address] [place], [place] [id number] Nohemy Torres, IBCLC OB Unit at [address] [address] Social History Tobacco Use Types Packs/Day Years [...] suspected to have Coronavirus/COVID-19? No / Unsure 10/12/2021 9:05 AM EDT documented as of this encounter Plan of Treatment Not on file documented as of this encounter Visit Diagnoses Not on filedocumented in this encounter Care Teams Peach Grower Relationship Specialty Start Date End Date Edward Page DO [address] [place] [id number] PCP - General Internal Medicine 06/21/21 documented as of this encounter
--- OUTSIDE RECORDS SUMMARY | 2025-04-24 12:38 | XMS_ITS | Encounter Summary ---
Author Organization [facility] Address [id number] [address] [place] [address] Care Team Providers Care Grinding Machine Operator Name Role Phone Edward Page DO Primary Care Provider [phone] Encounter Details Date Type Department Care Team (Late st Contact Info) Description 12/27/2023 Orders Only [facility] [address] [phone] External, Scanning Provider Social History Tobacco Use [...] Procedure Name Priority Date/Time Associated Diagnosis Comments MULTIPLE LABS Routine 12/23/2023 3:47 PM EDT MULTIPLE LABS Routine 12/23/2023 10:31 AM EDT ECHO COMPLETE WO CONTRAST Routine 12/18/2023 10:32 AM EDT documented in this encounter Results * Multiple labs (12/23/2023 3:47 PM EDT) us Scanning Provider External RI IMAGING Final Result MANUALLY TRANSCRIBED RESULTS * Multiple labs (12/23/2023 10:31 AM EDT) us Scanning Provider External RI IMAGING Final Result Performing Organization Address [facility] Co de Phone Number MANUALLY TRANSCRIBED RESULTS * Echo complete W/O contrast (12/18/2023 10:32 AM EDT) Anatomical Region Laterality Modality Chest N/A Ultrasound us Scanning Provider External CV ECHO ORDERABLES Fi nal Result documented in this encounter Visit Diagnoses Not on filedocumented in this encounter Care Teams Grinding Machine Operator Relationship Specialty [place] [address] [place] [id number] PCP - General Internal Medicine 05/19/18 documented as of this encounter
--- OUTSIDE RECORDS SUMMARY | 2025-04-24 12:38 | XMS_ITS | Encounter Summary ---
Author Organization [employer] [facility] Address [id number] [place] [address] Care Team Providers Care Log Truck Driver Name Role Phone Edward Page Primary Care Provider [phone] Reason for Referral * Diagnostic Imaging (Routine) - Closed Specialty Diagnoses / Procedures Referred By Contac t Referred To Contact Radiology Diagnoses Pain Procedures CT brain without contrast stroke alert [facility] [address] [place] [phone] Phone: tel: fax: Referral ID Status Reason Start Date Expiration Date Visits Re quested Visits Authorized [id number] Closed 12/18/2023 12/17/2024 1 1 * Diagnostic Imaging (Routine) - Closed Specialty Diagnoses / Procedures Referred By Contac t Referred To Contact Radiology Diagnoses Pain Procedures CT angiogram head [facility] [address] [place] [phone] Phone: tel: fax: Referral ID Status Reason Start Date Expiration Date Visits Re quested Visits Authorized [id number] Closed 12/18/2023 12/17/2024 1 1 * Diagnostic Imaging (Routine) - Closed Specialty Diagnoses / Procedures Referred By Contac t Referred To Contact Radiology Diagnoses Pain Procedures CT angiogram carotid [facility] [employer] [address] [place] [phone] Phone: tel: fax: Referral ID Status Reason Start Date Expiration Date Visits Re quested Visits Authorized [id number] Closed 12/18/2023 12/17/2024 1 1 * Diagnostic Imaging (Routine) - Closed Specialty Diagnoses / Procedures Referred By Leila virgen Referred To Contact Radiology Diagnoses Pain Procedures MR brain with and without contrast [facility] [address] [place] [phone] Phone: tel: fax: Referral ID Status Reason Start Date Expiration Date Visits Re quested Visits Authorized [id number] Closed 12/18/2023 12/17/2024 1 1 Encounter Details Date Type Department Care Team (Late st Contact Info) Description 12/18/2023 Orders Only [facility] [address] [place] [phone] Transcribe, Orders Support User Pain (Primary Dx) Social History Tobacco Use Types [...] on file documented as of this encounter Results * CT angiogram head (12/17/2023 8:50 AM EDT) us Scanning Provider External IMG CT ORDERABLES Fin al Result * MR brain with and without contrast (12/17/2023 8:50 AM EDT) us Scanning Provider External IMG MRI ORDERABLES Fi nal Result * CT angiogram carotid (12/17/2023 8:45 AM EDT) us Scanning Provider External IMG CT ORDERABLES Fin al Result * CT brain without contrast stroke alert (12/17/2023 8:05 AM EDT) us Scanning Provider External IMG CT ORDERABLES Fin al Result * X-ray chest 1 view (12/17/2023 7:55 AM EDT) us Scanning Provider External IMG DIAGNOSTIC IMAGIN G ORDERABLES Final Result documented in this encounter Visit Diagnoses Diagnosis Pain- Primary Generalized pain documented in this encounter Care Teams Log Truck Driver Relationship Specialty Start Date End Date Edward Page DO [address] [place] [address] PCP - General Internal Medicine 05/19/18 documented as of this encounter
--- OUTSIDE RECORDS SUMMARY | 2025-04-24 12:38 | XMS_ITS | Clinical Summary ---
Author Organization [facility] Address [address] [place] [address] Care Team Providers Care Dye Stand Loader Name Role Phone Edward Page DO Primary Care Provider [phone] Allergies Active Allergy Reactions Criticality Noted Date Comments Penicillins Hives Low 03/13/2017 Medications atorvastatin (Lipitor) 20 mg tablet Take 20 mg by mouth in the morning. 4 Active buPROPion (Wellbutrin) 100 mg tablet Take 50 mg by mouth twice a day. 4 Active ferrous sulfate 325 (65 Fe) MG tablet Take 65 mg by mouth with breakfast. Active escitalopram (Lexapro) 10 mg tablet Take 1 tablet by mouth in the morning. 5 Active apixaban (Eliquis) 5 mg tabletIndication s:Paroxysmal atrial fibrillation (CMS/HCC) Take 1 tablet (5 mg) by mouth two times daily. STOP ASPIRIN 180 tablet 3 5 10/02/19 26 Active metoprolol succinate XL (Toprol-XL) 25 mg 24 hr tablet Take 25 mg by mouth in the morning. 5 Active flecainide (Tambocor) 100 mg tabletIndication s:Paroxysmal atrial fibrillation (CMS/HCC) Take 1 tablet (100 mg) by mouth two times daily. 180 tablet 3 5 10/14/19 26 Active famotidine (Pepcid) 20 mg tabletIndication s:Paroxysmal atrial fibrillation (CMS/HCC) Take 1 tablet (20 mg) by mouth two times daily. 60 tablet 5 Active Additional Information Patient not taking.Reason: Other, Reported on 04/13/2025 aspirin 81 mg EC tablet Take 81 mg by mouth in the morning. Active Active Problems Problem Noted Date Diagnosed Date Paroxysmal atrial fibrillation 10/13/2024 PFO (patent foramen ovale) 09/02/2024 TIA (transient ischemic attack) 09/02/2024 Irregular menstrual cycle 08/24/2024 Menorrhagia with irregular cycle 08/24/2024 Abdominal pain 10/12/2021 Antepartum hypertension 10/12/2021 Intrauterine 07/29/2018 Gestational hypertension, third trimester 2018 BMI 50.0-59.9, adult 07/18/2018 Encounter for sterilization 07/15/2018 Overview (12/20/2023): Desires sterilization History of delivery 07/15/2018 Overview (12/20/2023): Desires repeat deliver 39 weeks Gestational diabetes mellitus 05/19/2018 Abnormal facial hair 03/13/2017 Acne 03/13/2017 Encounters Date Type Department Care Team Description 04/13/2025 10:00 AM EDT Office Visit [facility] at [address] [phone] Dennis Ortega MD S/P ablation of atrial fibrillation (Primary Dx) from Last 3 Months Immunizations Immunization Administration Dates Next Due DTP 10/21/1987,1986,1986 ,1986 DTaP, Unspecified 03/07/1992 Influenza, seasonal, injectable 03/26/2013 MMR 01/26/1999,07/29/1987 OPV 10/21/1987,1986,1986 Polio, Unspecified 03/07/1992 Tdap 07/30/2018 Tetanus toxoid, adsorbed 01/03/2005 Family History Medical History Relation Name Comments Atrial fibrillation Brother Hypertension Father Diabetes Mother Lung cancer Paternal Grandfather Relation Name Status Comments Brother Alive Father Alive Maternal Grandmother Alive Mother Alive Paternal Grandfather Social History [...] Heterosexual or Straight 12/06 9:46 AM EDT Last Filed Vital Signs Vital Sign Reading Time Taken Comments Blood Pressure 121/72 04/13/2025 10:21 AM EDT Pulse 60 04/13/2025 10:21 AM EDT Temperature 36.5 C (97.7 F) 11/19/2024 5:40 PM EDT Respiratory Rate 17 11/19/2024 3:05 PM EDT Oxygen Saturation 99% 04/13/2025 10:21 AM EDT Inhaled Oxygen Concentration - - Weight 77.1 kg (170 lb) 04/13/2025 10:21 AM EDT Height 157.5 cm (5' 2 ) 04/13/2025 10:21 AM EDT Body Mass Index 31.09 04/13/2025 10:21 AM EDT Plan of Treatment Health Maintenance Due Date Last Done Comments Depression Screening 1998 Varicella Vaccines (1 of 2 - 13+ 2-dose series) 1999 Hepatitis B Vaccines (1 of 3 - 19+ 3-dose series) 2005 Pap Smear 2007 Cervical Cancer Screening 2016 HPV/Cotest 2016 COVID-19 Vaccine ( season) 2025 Influenza Vaccine (#1) 2025 03/26/2013 Adult Tetanus 07/30/2028 07/30/2018 Zoster Vaccines (1 of 2) 2036 IPV Vaccines Completed 03/07/1992, 10/06, 1986, Additional history exists HIB Vaccines Aged Out No longer eligi ble based on patient's age to complete this topic HPV Vaccines Aged Out No longer eligi ble based on patient's age to complete this topic Meningococcal B Vaccine Aged Out No l onger eligible based on patient's age to complete this topic Meningococcal Vaccine Aged Out No argelia brian eligible based on patient's age to complete this topic Pneumococcal Vaccine: Pediatrics (0 to 5 Years) and At-Risk Patients (6 to 64 Years) Aged Out No longer eligible based on patient's age to complete this topic Rotavirus Vaccines Aged Out No longer eligible based on patient's age to complete this topic Insurance [facility] Advance Directives * Full Code (Latest Code Status on File) Date Activated Date Inactivated Comments 11/19/2024 3:14 PM 11/19/2024 8:00 PM * Full Code Date Activated Date Inactivated Comments 11/19/2024 3:14 PM 11/19/2024 3:14 PM Care Teams Dye Stand Loader Relationship Specialty Start Date End Date Edward Page DO PCP - General 12/20/23
--- OUTSIDE RECORDS SUMMARY | 2025-04-24 12:38 | XMS_ITS | Encounter Summary ---
Author Organization [facility] tem Address [id number] [address] [place] [address] Care Team Providers Care Maintenance Superintendent Name Role Phone Edward Page DO Primary Care Provider [phone] Encounter Details Date Type Department Care Team (Late st Contact Info) Description 06/06/2021 Orders Only [facility]- Medicine at [facility] [address] [place] [address] Ref Prov, [place] [address] Social History Tobacco Use Types Packs/Day Years [...] on filedocumented in this encounter Care Teams Maintenance Superintendent Relationship Specialty Start Date End Date Edward Page DO [address] [place] [address] PCP - General Internal Medicine 05/19/18 documented as of this encounter
--- OUTSIDE RECORDS SUMMARY | 2025-04-24 12:38 | XMS_ITS | Encounter Summary ---
Author Organization [facility] Address [id number] [address] [place] [address] Care Team Providers Care Cleat Feeder Name Role Phone Edward Page DO Primary Care Provider [phone] Reason for Visit * Reason Onset Date Comments call back 12/27/2023 Encounter Details Date Type Department Care Team ([facility] Contact Info) Description 12/27/2023 Telephone [facility] [address] [place] [phone] Molly Rueda call back Social History Tobacco Use Types Packs/Day Years [...] on file documented as of this encounter Miscellaneous Notes * Telephone Encounter - Molly Rueda - 12/27/2023 1:25 PM EDT Patient called and requested to speak with Dr. Healy's RN. She stated she had an episode today andshe wants to make sure she did everything correctly. She asked for a call back at [phone] ([facility] primary number) * Telephone Encounter - Nohemy Kingsley RN - 12/27/2023 1:25 PM EDT Called patient to get more information about this episode . 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 After that she noticed shecouldn't squeeze with that hand as well as normal and she sent a picture of her face to her friend,who is a nurse, and her friend said it wasn't symmetrical. So she was packing up her things and herhusband was on his way to get her to take her to the ED. She stated by the time he got there she was back to normal. She also stated she felt foggy after this happened. Fitting Room Inspector asked how long this lasted, she said it started at 1100 and lasted about 15 minutes. She stated she has been taking her ASAchewable because she had bypass surger, she is following for structural heart to close her PFO, they are sending her a heart monitor, which she should receive in a couple days, she is working on scheduling her EMMA. She just was asking if she needs to be on a stronger AC like eliquis or xarelto, sheng stated she is keeping hydrated. Fitting Room Inspector informed patient this information will be passed along to Dr. Healy and see what her recommendations are but in the meantime if symptoms come back she should go to the ED and get evaluated. She voiced understanding. * Telephone Encounter - Nohemy Kingsley RN - 12/27/2023 1:25 PM EDT Called and spoke to patient and informed her of conversation customs entry writer had with Dr. Healy on Saturday, Dr. Healy stated Symptoms don't sound like TIA or seizure, she doesn't want to start anything else, Hgb was 8, she does recommend if neurologic symptoms persist go to ED to be evaluated. Patient voicedunderstanding. documented in this encounter Plan of Treatment Not on file documented as of this encounter Visit Diagnoses Not on filedocumented in this encounter Care Teams Cleat Feeder Relationship Specialty Start Date End Date Edward Page DO [address] [place] [address] PCP - General Internal Medicine 05/19/18 documented as of this encounter
--- OUTSIDE RECORDS SUMMARY | 2025-04-24 12:39 | XMS_ITS | Clinical Summary ---
Author Organization [facility] Address [address] [place] [address] Care Team Providers Care Electronics Parts Sales Representative Name Role Phone Unavailable Primary Care Provider Unavailabl e Allergies Active Allergy Reactions Criticality Noted Date Comments Penicillin G Hives 03/13/2017 Penicillins Hives 03/13/2017 Medications aspirin 81 MG EC tablet Take 81 mg by mouth in the morning. Active ferrous sulfate 325 (65 Fe) MG tablet Take 65 mg by mouth in the morning. Take with meals. Active clopidogrel (Plavix) 75 MG tablet Take 75 mg by mouth Daily Active Active Problems Problem Noted Date Diagnosed Date Irregular menstrual cycle 08/24/2024 Menorrhagia with irregular cycle 08/24/2024 Family History Medical History Relation Name Comments Diabetes type II Father Diabetes type II Mother Relation Name Status Comments Father Alive Mother Alive Social History Tobacco Use Types Packs/Day Years Used Date Smoking Tobacco: Never Smokeless Tobacco: Never Alcohol Use Standard Drinks/Week Comments Yes 0 (1 standard drink = 0.6 oz pur e alcohol) Comments No Sex and Gender Information Value Date Recorded Sex Assigned at Not on file Legal Sex Female 8:04 PM EDT Gender Identity Not on file Sexual Orientation Not on file Last Filed Vital Signs Vital Sign Reading Time Taken Comments Blood Pressure 110/70 08/24/2024 9:02 AM EST Pulse - - Temperature - - Respiratory Rate - - Oxygen Saturation - - Inhaled Oxygen Concentration - - Weight 72.6 kg (160 lb 1.9 oz) 08/24/2024 9:02 A M EST Height 157.5 cm (5' 2 ) 08/24/2024 9:02 AM EST Body Mass Index 29.29 08/24/2024 9:02 AM EST Plan of Treatment Not on file Insurance [facility]
[2025-04-24 13:26] LABS: Hematocrit 25.6 % (36.0-48.0); Hemoglobin 7.1 g/dL (12.0-16.0); Immature Granulocytes Abs Auto 0.01 10^3/uL (0.00-0.03); Immature Granulocytes Pct Auto 0.2 % (0.0-0.5); Lymphocytes Absolute Auto 1.7 10^3/uL (1.2-3.8); Mean Corpuscular HGB Conc 27.7 g/dL (29.9-35.2); Mean Corpuscular Hemoglobin 17.8 pg (26.7-34.0); Mean Corpuscular Volume 64.3 fL (81.0-99.0); Platelet Count 287 10^3/uL (150-450); White Blood Count 5.4 10^3/uL (4.0-11.0)
[2025-04-24 14:11] LABS: Iron 8.0 ug/dL (50.0-170.0); Percent Iron Saturation 1.6 %; Total Iron Binding Capacity 491.0 ug/dL (250.0-450.0)
[2025-04-24 14:21] LABS: Red Blood Count 3.98 10^6/uL (4.20-5.40)
[2025-04-24 14:23] LABS: Ferritin 2.0 ng/mL (8.0-252.0); Folate 11.40 ng/mL (8.60-58.90)
[2025-04-26 12:08] LABS: Vitamin B12 243 pg/mL (232-1245)
== END 2025-04-24 12:35 | disposition home or self-care (01) ==
LOC: LAB 12:34
PROVIDERS: PCP Internal Medicine; Visit Provider Internal Medicine
DX: D64.9 Anemia, unspecified (principal)
CPT/HCPCS: 36415; 82607; 82728; 82746; 83540; 83550; 85025; 86850; 86900; 86901

== ENCOUNTER 2025-05-07 07:36 | Outpatient (RCR) | payer BC, SELFPAY ==
[2025-05-07 08:00] VITALS: BP 134/81; PULSE 69; TEMP 36.4; O2SAT 100
[2025-05-07] MEDS: IRON SUCROSE COMPLEX 300 MG in 0.9 % SODIUM CHLORIDE 250 ML 176.667 MG IV (08:09)
== END 2025-05-07 23:59 | disposition home or self-care (01) ==
LOC: INF 07:36
PROVIDERS: PCP Internal Medicine; Visit Provider Internal Medicine
DX: D64.9 Anemia, unspecified (principal)
CPT/HCPCS: 96365; 96366; J1756

== ENCOUNTER 2025-05-20 12:52 | Outpatient (RCR) | payer BC, SELFPAY ==
[2025-05-13 13:00] VITALS: BP 116/74; PULSE 89; TEMP 37.6; O2SAT 100
[2025-05-13] MEDS: IRON SUCROSE COMPLEX 300 MG in 0.9 % SODIUM CHLORIDE 250 ML 176.667 MG IV (13:11)
--- NOTE | 2025-05-13 14:07 | PC.NURSE ---
Resting quietly with eyes closed.
[2025-05-20] MEDS: IRON SUCROSE COMPLEX 300 MG in 0.9 % SODIUM CHLORIDE 250 ML 176.667 MG IV (13:04)
--- NOTE | 2025-05-20 13:30 | PC.NURSE ---
Tolerating iron without c/o. IV site clear. Denies needs.
== END 2025-06-06 23:59 | disposition home or self-care (01) ==
LOC: INF 12:52
PROVIDERS: PCP Internal Medicine; Visit Provider Internal Medicine
DX: D64.9 Anemia, unspecified (principal)
CPT/HCPCS: 96365; 96366; J1756